=== PATIENT | female | born 1975 | race Caucasian/White ===

== ENCOUNTER 2016-02-27 19:27 | Emergency (ER) | payer OTHER ==
--- NOTE | 2016-02-27 20:58 | ED ---
URI HPI - General Chief Complaint: Upper Respiratory Infection Stated Complaint: Upper Resp Symptoms Time Seen by Provider: 02/27/16 20:07 Source: patient, RN notes reviewed Mode of arrival: ambulatory Limitations: no limitations - History of Present Illness Initial Comments: 40-year-old female presents emergency Department chief complaint cough and congestion 2 days. Patient states that her significant other sick also. Patient denies any fevers or chills. She does state that she's had some bodyaches with a runny nose and a nonproductive cough. Denies any shortness of breath. Denies nausea and diarrhea constipation. Denies sore throat, ear pain. - Related Data Home Medications Medication Instructions Recorded Confirmed Albuterol Inhaler [Ventolin 2 puff INHALATION RT-Q6H PRN 02/13/14 02/27/16 Inhaler] traMADol HCl [Ultram] 50 mg PO Q4H PRN 11/25/14 02/27/16 Gabapentin 800 mg PO TID 01/07/16 02/27/16 Divalproex [Depakote] 250 mg PO BID 02/27/16 02/27/16 Venlafaxine HCl [Effexor] 75 mg PO QAM 02/27/16 02/27/16 lamoTRIgine [LaMICtal] 200 mg PO QAM 02/27/16 02/27/16 Allergies Allergy/AdvReac Type Severity Reaction Status Date / Time No Known Allergies Allergy Verified 01/07/16 22:22 Review of Systems ROS Statement: Those systems with pertinent positive or pertinent negative responses have been documented in the HPI. ROS Other: All systems not noted in ROS Statement are negative. Past Medical History Past Medical History: Asthma, Skin Disorder Additional Past Medical History / Comment(s): Neuropathy, ECZEMA History of Any Multi-Drug Resistant Organisms: None Reported Past Surgical History: Hysterectomy, Tubal Ligation Past Anesthesia/Blood Transfusion Reactions: No Reported Reaction Past Psychological History: Anxiety, Bipolar, Depression Smoking Status: Current every day smoker Past Alcohol Use History: None Reported Past Drug Use History: None Reported General Exam Limitations: no limitations General appearance: alert, in no apparent distress, obese Head exam: Present: atraumatic, normocephalic, normal inspection Eye exam: Present: normal appearance, PERRL, EOMI. Absent: scleral icterus, conjunctival injection, periorbital swelling ENT exam: Present: normal exam, normal oropharynx, mucous membranes moist, TM's normal bilaterally Neck exam: Present: normal inspection, full ROM. Absent: tenderness, meningismus, lymphadenopathy Respiratory exam: Present: normal lung sounds bilaterally. Absent: respiratory distress, wheezes, rales, rhonchi, stridor Cardiovascular Exam: Present: regular rate, normal rhythm, normal heart sounds. Absent: systolic murmur, diastolic murmur, rubs, gallop, clicks Course Vital Signs 02/27/16 19:50 Temperature 98.0 F Pulse Rate 70 Respiratory 18 Rate Blood Pressure 149/89 O2 Sat by Pulse 97 Oximetry Medical Decision Making - Medical Decision Making 40-year-old female presented for cough congestion. Patient has URI. Patient's chest x-ray shows no acute abnormality. Patient will be discharged with conservative treatment. Disposition Clinical Impression: Upper respiratory infection Disposition: HOME SELF-CARE Condition: Stable Instructions: Upper Respiratory Infection (ED) Additional Instructions: Please return to the Emergency Department if symptoms worsen or any other concerns. Time of Disposition: 21:29
--- NOTE | 2016-02-27 21:15 | XR ---
EXAMINATION TYPE: XR chest 2V DATE OF EXAM: 02/27/2016 8:24 PM COMPARISON: 12/16/2015 HISTORY: Cough and congestion TECHNIQUE: Frontal and lateral views of the chest are obtained. FINDINGS: There is no focal air space opacity, pleural effusion, or pneumothorax seen. The cardiac silhouette size is within normal limits. The osseous structures are intact. IMPRESSION: No acute cardiopulmonary process.
[2016-02-27 21:37] VITALS: BP 138/74; PULSE 78; RESP 16; TEMP 97.9
== END 2016-02-27 21:37 | disposition home or self-care (01) ==
LOC: EC 19:27
DX: J06.9 Acute upper respiratory infection, unspecified (principal); F17.200 Nicotine dependence, unspecified, uncomplicated; G62.9 Polyneuropathy, unspecified; F41.9 Anxiety disorder, unspecified; F32.9 Major depressive disorder, single episode, unspecified; Z79.899 Other long term (current) drug therapy
CPT/HCPCS: 71020; 99283

== ENCOUNTER 2016-04-17 21:48 | Inpatient (IN) | payer MEDICAID, OTHER ==
--- NOTE | 2016-04-17 22:00 | ED ---
Overdose HPI - General Chief Complaint: Overdose Stated Complaint: Overdose Time Seen by Provider: 04/17/16 21:48 Source: patient, EMS, RN notes reviewed Mode of arrival: EMS Limitations: no limitations - History of Present Illness Initial Comments: Is a 40-year-old female history depression and prior suicide attempts who took approximately 1510 mg Ambien sometime earlier today. She brought in by EMS for evaluation. She states she took them because she didn't want to wake up for multiple reasons including her daughter doesn't like her. Her boyfriend apparently called 911. She denies any other ingestion. The prescription was fairly new in this is an approximate number again 1510 mg tablets. MD Complaint: intentional overdose - Related Data Home Medications Medication Instructions Recorded Confirmed Albuterol Inhaler [Ventolin 2 puff INHALATION RT-Q6H PRN 02/13/14 02/27/16 Inhaler] traMADol HCl [Ultram] 50 mg PO Q4H PRN 11/25/14 02/27/16 Gabapentin 800 mg PO TID 01/07/16 02/27/16 Divalproex [Depakote] 250 mg PO BID 02/27/16 02/27/16 Venlafaxine HCl [Effexor] 75 mg PO QAM 02/27/16 02/27/16 lamoTRIgine [LaMICtal] 200 mg PO QAM 02/27/16 02/27/16 Allergies Allergy/AdvReac Type Severity Reaction Status Date / Time No Known Allergies Allergy Verified 04/17/16 21:50 Review of Systems ROS Statement: Those systems with pertinent positive or pertinent negative responses have been documented in the HPI. ROS Other: All systems not noted in ROS Statement are negative. Past Medical History Past Medical History: Asthma, Skin Disorder Additional Past Medical History / Comment(s): Neuropathy, ECZEMA History of Any Multi-Drug Resistant Organisms: None Reported Past Surgical History: Hysterectomy, Tubal Ligation Past Anesthesia/Blood Transfusion Reactions: No Reported Reaction Past Psychological History: Anxiety, Bipolar, Depression Smoking Status: Current every day smoker Past Alcohol Use History: None Reported Past Drug Use History: Unable to Obtain General Exam - General Exam Comments Initial Comments: Is a well-developed obese female she is lethargic but does answer questions. Limitations: no limitations General appearance: alert, lethargic Head exam: Present: atraumatic, normocephalic, normal inspection Eye exam: Present: normal appearance, PERRL, EOMI. Absent: scleral icterus, conjunctival injection, periorbital swelling ENT exam: Present: normal exam, mucous membranes moist Neck exam: Present: normal inspection. Absent: tenderness, meningismus, lymphadenopathy Respiratory exam: Present: normal lung sounds bilaterally. Absent: respiratory distress, wheezes, rales, rhonchi, stridor Cardiovascular Exam: Present: regular rate, normal rhythm, normal heart sounds. Absent: systolic murmur, diastolic murmur, rubs, gallop, clicks GI/Abdominal exam: Present: soft, normal bowel sounds, other (Obese abdomen). Absent: distended, tenderness, guarding, rebound, rigid Extremities exam: Present: normal inspection, full ROM, normal capillary refill. Absent: tenderness, pedal edema, joint swelling, calf tenderness Back exam: Present: normal inspection Neurological exam: Present: alert, oriented X3, CN II-XII intact Psychiatric exam: Present: depressed, flat affect, suicidal ideation Skin exam: Present: warm, dry, intact, normal color. Absent: rash Course Vital Signs 04/17/16 04/17/16 04/18/16 21:50 23:35 00:35 Temperature 98.2 F Pulse Rate 99 86 75 Respiratory 16 20 20 Rate Blood Pressure 166/79 142/80 156/88 O2 Sat by Pulse 95 96 97 Oximetry Medical Decision Making - Medical Decision Making The patient rested for a period time and then was evaluated by the psychiatric service she will be admitted for inpatient treatment - Lab Data Lab Results 04/17/16 04/17/16 04/17/16 Range/Units 22:00 22:00 22:00 Urine Color Yellow Urine Appearance Cloudy H (Clear) Urine pH 5.5 (5.0-8.0) Ur Specific [place] 1.027 (1.001-1.035) Urine Protein 1+ H (Negative) Urine Glucose (UA) Negative (Negative) Urine Ketones Negative (Negative) Urine Blood Small H (Negative) Urine Nitrate Negative (Negative) Urine Bilirubin Negative (Negative) Urine Urobilinogen 4.0 (<2.0) mg/dL Ur Leukocyte Esterase Negative (Negative) Urine RBC 17 H (0-5) /hpf Ur Squamous Epith Cells 5 H (0-4) /hpf Urine Bacteria Rare H (None) /hpf Urine Mucus Many H (None) /hpf Urine HCG, Qual Not Detected (Not Detectd) Salicylates <1.0 mg/dL Urine Opiates Screen Detected H (NotDetected) Ur Oxycodone Screen Not Detected (NotDetected) Urine Methadone Screen Not Detected (NotDetected) Ur Propoxyphene Screen Not Detected (NotDetected) Acetaminophen <10.0 ug/mL Ur Barbiturates Screen Not Detected (NotDetected) U Tricyclic Antidepress Not Detected (NotDetected) Ur Phencyclidine Scrn Not Detected (NotDetected) Ur Amphetamines Screen Detected H (NotDetected) U Methamphetamines Scrn Not Detected (NotDetected) U Benzodiazepines Scrn Not Detected (NotDetected) Urine Cocaine Screen Detected H (NotDetected) U Marijuana (THC) Screen Not Detected (NotDetected) Serum Alcohol <10 mg/dL Disposition Clinical Impression: Overdose, Depression, Suicidal ideation Disposition: TRANSFER TO PSYCH HOSP/UNIT Condition: Stable
[2016-04-17 22:23] LABS: Appearance,Urine Cloudy (Clear); Bacteria,Urine Rare /hpf; Bilirubin,Urine Negative (Negative); Glucose,Urine (UA) Negative (Negative); Ketones,Urine Negative (Negative); Leukocyte Esterase,Urine Negative (Negative); Mucus,Urine Many /hpf; Nitrite,Urine Negative (Negative); PH, Urine 5.5 (5.0-8.0); Particle Count 37490; Protein,Urine 1+ (Negative); RBC,Urine 17 /hpf (0-5); Specific Gravity,Urine 1.027 (1.001-1.035); Squamous Epithelial Cell,Urine 5 /hpf (0-4); UA Billing (MACRO vs. MICRO) MICRO
[2016-04-17 22:27] LABS: Acetaminophen <10.0 ug/mL; Alcohol <10 mg/dL; Salicylate <1.0 mg/dL
[2016-04-18] MEDS ORDERED: MAGNESIUM HYDROXIDE 2,400 MG/10 ML CUP PO PRN (02:22)
[2016-04-18] MEDS ORDERED: ACETAMINOPHEN TAB 325 MG TAB PO PRN (02:22)
[2016-04-18] MEDS ORDERED: MAG HYDROX/AL HYDROX/SIMETH 30 ML CUP PO PRN (02:22)
[2016-04-18] MEDS ORDERED: ALBUTEROL INHALER 60 PUFF/8 GM INHALER INHALATION PRN (02:23)
[2016-04-18 03:24] VITALS: BMI 58.6
[2016-04-18] MEDS: NICOTINE 7MG/24HR PATCH TRANSDERM SCH (08:48)
[2016-04-18] MEDS: GABAPENTIN 400 MG CAP PO SCH ×3 (08:48→22:45)
[2016-04-18] MEDS: traMADol 50 MG TAB PO PRN ×3 (08:49→22:45)
[2016-04-18] MEDS ORDERED: LORazepam 1 MG TAB PO PRN (11:27)
[2016-04-18] MEDS: HYDROcodone/APAP 5-325MG 1 EACH TAB PO PRN ×2 (12:21→20:10)
--- NOTE | 2016-04-18 16:47 | P.HP ---
Psychiatric H&P - . H&P Date: 04/18/16 History & Physical: IDENTIFYING DATA: Mrs. Paniagua is a 40-year-old female who has a purported history of a bipolar disorder.. HISTORY OF PRESENT ILLNESS: Her boyfriend called emergency services because he thought that she overdosed on Ambien. He estimated that she may have taken 15- 20 10 mg tablets of Ambien last night. She alleged she has no recollection of the events after taking 20 mg of Ambien last night. She complained that she was having difficulty sleeping and took 2 tablets. She said her boyfriend told her that she continued to take Ambien "while I was sleeping." She has no memory or recollection of taking additional doses of Ambien. She has no recollection of emergency services arriving at their home or her arrival to the emergency room. She alleged that she next remembered waking up on the unit. She was having difficulty sleeping because she and her boyfriend were arguing over her recent relapse to crack cocaine. She stated that she has been abstinent for 11 years and relapsed over the last week. She smoked crack cocaine 3 times over the week. She acknowledged that her cocaine use may have contributed to the recent worsening of her sleep. She denied the use of other drugs to get high, help her sleep or change her mood. She denied use of alcohol. He urine drug screen was positive for opiates, amphetamines and cocaine. She stated that she is prescribed Lott for the treatment of chronic pain but denied use of amphetamines. She denied having been depressed or having had thoughts of or suicide. She denied that she had taken additional dose of Ambien in a suicide attempt. She denied conflict with boyfriend other than the recent arguments over her relapse to cocaine. She denied anxiety or symptoms suggestive of panic attack. She denied elevated mood or persistent irritability suggestive of yves or hypomania. She denied psychotic symptoms. PAST PSYCHIATRIC HISTORY: This is her third admission to this psychiatric unit. The last was in February 2007. The 2 prior hospitalizations were related to depression and suicide attempt by overdose of medications. She has been meeting with a private psychiatrist, Pollo Dougherty, for the last "6 months to 1 year" for the treatment of her bipolar illness. Her current psychotropic medications include Depakote 500 mg twice a day, Xanax 0.5 mg by mouth twice a day and Ambien 10 mg at bedtime. PAST MEDICAL HISTORY: She history of chronic back pain, a peripheral neuropathy , COPD. She stated that she is prescribed Lott 5-325 2-3 times a day as well as Neurontin 800 mg 3 times a day for pain. ALLERGIES: NO KNOWN DRUG ALLERGIES. SUBSTANCE USE HISTORY: She has a history of use of drugs including cocaine, methamphetamine, mescaline, hallucinogenic mushrooms, LSD, marijuana and alcohol. Her drug of choice is cocaine. She started using cocaine when she was 27 or 28 years old. As a result of cocaine use she incurred serious legal problems with multiple felony charges in 2005. She received residential substance abuse treatment ([facility]) while on probation and has been abstinent from cocaine until the recent relapse. FAMILY PSYCHIATRIC/SUBSTANCE USE HISTORY: She alleged that the most of her family have alcohol or mental health problems. Both her brothers have alcohol use problems. LEGAL HISTORY: She is not currently on probation, parole or has pending charges. She stated that she was arrested when her "home was raided" and charged with maintaining a drug house, possession of controlled substance and possession of stolen property in 2005. She was convicted of two the charges and sentenced to 2 years probation. On the [facility] court docket she has multiple misdemeanors including to domestic violence charges, assault charges and assault and addition to multiple moving vehicle violations. SOCIAL HISTORY: She was born in [place] [facility] and raised in [place]. She has one older and one younger brother. Her parents when she was 8 years old. She was raised by her mother. She graduated from high school and received a bachelor's degree from [employer] in business administration. She stated that she was unable to find work in her field of study because of her felony convictions. She has 1 daughter who is under the custody of her mother. She was . She lives with her boyfriend. She has no income and is supported by her boyfriend. MENTAL STATUS EXAM: She presented as anxious appearing, morbidly obese 40-year- old female who was pleasant on approach. She wore a blanket wrapped around her shoulders because she only had a top and under shorts. She maintained eye contact and attended to the interview. She had a blunted but bright facial expression. She was alert and oriented to person, place and time. She showed no abnormality of psychomotor activity. She had a normal gait and station. She had no abnormal involuntary movements. Her speech was spontaneous with slightly increased rhythm but normal volume and amount. She had no articulation difficulties. Her affect was anxious but stable and appropriate. She denied suicidal ideation or wishes. She denied homicidal ideation. She denied depressive cognitions as hopelessness, helplessness or worthlessness. She did not express obsessional thinking. She ruminated on the hospitalization and the circumstances leading to the admission. She did not express ideas reference or paranoid ideation. Her thinking was abstract. Her associations were coherent and logical. She denied hallucinations and did not appear to be responding to internal stimuli. Global impression of intellect is average. She is aware of her substance abuse and mental health problems and need for treatment. STRENGTHS: Engagement mental health care, stable interpersonal relationships, supportive significant other, stable housing, financial problems. WEAKNESSES: Relapse to cocaine, lack of employment, multiple medical problems. IMPRESSION: She is 41-year-old woman who has a purported diagnosis of bipolar disorder. She presented to the unit after an apparent unintentional overdose of Ambien. She has no recollection of events leading to hospitalization other than taking a 20 mg dose of Ambien last night. She has had recent conflict with her boyfriend due to relapse to cocaine but alleged she has been otherwise abstinent for the last 11 years. She complained of increased insomnia after the relapse from cocaine. She appears to have developed an amnestic episode Ambien. She is treated outpatient basis combination of psychotropic medications and multimodal therapy. Social work to arrange for a family meeting. PRINCIPLE DIAGNOSIS: Zolpidem abuse, zolpidem induced amnesia, cocaine abuse, her personal conflict due to cocaine abuse, history of bipolar disorder RECOMMENDATION: Continue inpatient hospitalization until family meeting to clarify the circumstances leading to the admission and safety of patient returning home. Continue Depakote ER 1000 mg at bedtime, [place] 5-325 4 times a day when necessary for pain, Neurontin 800 mg 3 times a day, tramadol 50 mg by mouth 4 times a day when necessary for muscle spasms and pain and lorazepam 1 mg by mouth every 8 hours when necessary for anxiety. Encourage participation in therapeutic groups and activities. Evaluate clinical status and response to treatment on a daily basis. Allergies Allergy/AdvReac Type Severity Reaction Status Date / Time No Known Allergies Allergy Verified 04/18/16 03:25 Vital Signs Temp 97.2 F L 04/18/16 03:13 Pulse 82 04/18/16 03:13 Resp 20 04/18/16 03:13 BP 126/88 04/18/16 03:13 Pulse Ox 94 L 04/18/16 03:13 Intake & Output 04/17/16 04/18/16 04/18/16 18:59 06:59 18:59 Weight 140.699 kg Laboratory Last Values Urine Color Yellow 04/17/16 22:00 Urine Appearance Cloudy (Clear) H 04/17/16 22:00 Urine pH 5.5 (5.0-8.0) 04/17/16 22:00 Ur Specific [place] 1.027 (1.001-1.035) 04/17/16 22:00 Urine Protein 1+ (Negative) H 04/17/16 22:00 Urine Glucose (UA) Negative (Negative) 04/17/16 22:00 Urine Ketones Negative (Negative) 04/17/16 22:00 Urine Blood Small (Negative) H 04/17/16 22:00 Urine Nitrate Negative (Negative) 04/17/16 22:00 Urine Bilirubin Negative (Negative) 04/17/16 22:00 Urine Urobilinogen 4.0 mg/dL (<2.0) 04/17/16 22:00 Ur Leukocyte Esterase Negative (Negative) 04/17/16 22:00 Urine RBC 17 /hpf (0-5) H 04/17/16 22:00 Ur Squamous Epith Cells 5 /hpf (0-4) H 04/17/16 22:00 Urine Bacteria Rare /hpf (None) H 04/17/16 22:00 Urine Mucus Many /hpf (None) H 04/17/16 22:00 Urine HCG, Qual Not Detected (Not Detectd) 04/17/16 22:00 Salicylates <1.0 mg/dL 04/17/16 22:00 Urine Opiates Screen Detected (NotDetected) H 04/17/16 22:00 Ur Oxycodone Screen Not Detected (NotDetected) 04/17/16 22:00 Urine Methadone Screen Not Detected (NotDetected) 04/17/16 22:00 Ur Propoxyphene Screen Not Detected (NotDetected) 04/17/16 22:00 Acetaminophen <10.0 ug/mL 04/17/16 22:00 Ur Barbiturates Screen Not Detected (NotDetected) 04/17/16 22:00 U Tricyclic Antidepress Not Detected (NotDetected) 04/17/16 22:00 Ur Phencyclidine Scrn Not Detected (NotDetected) 04/17/16 22:00 Ur Amphetamines Screen Detected (NotDetected) H 04/17/16 22:00 U Methamphetamines Scrn Not Detected (NotDetected) 04/17/16 22:00 U Benzodiazepines Scrn Not Detected (NotDetected) 04/17/16 22:00 Urine Cocaine Screen Detected (NotDetected) H 04/17/16 22:00 U Marijuana (THC) Screen Not Detected (NotDetected) 04/17/16 22:00 Serum Alcohol <10 mg/dL 04/17/16 22:00 04/18/16 08:39 04/18/16 11:33 04/18/16 16:42
[2016-04-18] MEDS ORDERED: DIVALPROEX ER 500 MG TAB.ER.24H PO SCH (21:00)
[2016-04-19 07:01] VITALS: TEMP 97.7
[2016-04-19] MEDS: GABAPENTIN 400 MG CAP PO SCH (08:58)
[2016-04-19] MEDS: NICOTINE 7MG/24HR PATCH TRANSDERM SCH (08:58)
[2016-04-19] MEDS: HYDROcodone/APAP 5-325MG 1 EACH TAB PO PRN (09:01)
[2016-04-19 09:03] VITALS: BP 139/76; PULSE 76; RESP 18
[2016-04-19 09:31] LABS: Basophils # (A) 0.1 k/uL (0-0.2); Basophils % (A) 1 %; CH 32.1; CHCM 31.5; Eosinophils # (A) 0.2 k/uL (0-0.7); Eosinophils % (A) 2 %; HCT 52.1 % (34.0-46.0); HDW 2.67; HGB 16.1 gm/dL (11.4-16.0); Luc # (Auto) 0.24; Luc % (Auto) 3; Lymphocytes # (A) 2.9 k/uL (1.0-4.8); Lymphocytes % (A) 34 %; MCH 31.7 pg (25.0-35.0); MCHC 30.9 g/dL (31.0-37.0); MCV 102.5 fL (80.0-100.0); Macrocytosis Slight; Mean Platelet Volume 6.7; Monocytes # (A) 0.3 k/uL (0-1.0); Monocytes % (A) 4 %; Neutrophils # (A) 4.8 k/uL (1.3-7.7); Neutrophils % (A) 56 %; RBC 5.09 m/uL (3.80-5.40); RDW 13.8 % (11.5-15.5); WBC 8.5 k/uL (3.8-10.6)
[2016-04-19 09:43] LABS: ALT 28 U/L (9-52); AST 16 U/L (14-36); Alkaline Phosphatase 63 U/L (38-126); Anion Gap 12 mmol/L; Blood Urea Nitrogen 13 mg/dL (7-17); Calcium 9.5 mg/dL (8.4-10.2); Carbon Dioxide 23 mmol/L (22-30); Chloride 106 mmol/L (98-107); Glucose 151 mg/dL (74-99); Non-African American GFR(MDRD) >60 (>60 ml/min/1.73 sqM); Potassium 4.3 mmol/L (3.5-5.1); Sodium 141 mmol/L (137-145); Total Bilirubin 0.5 mg/dL (0.2-1.3); Total Protein 6.9 g/dL (6.3-8.2)
--- NOTE | 2016-04-19 11:17 | P.DS ---
Providers Date of admission: 04/18/16 01:57 Attending physician: Javy Nance Consults: 04/18/16 02:22 Consult Physician Routine Consulting Provider: Stephen Crabrtee Consult Reason/Comments: For H & P for Medical Follow Up Do you want consulting provider notified?: Yes, Notify in am Primary care physician: Stephen Crabtree - Discharge Diagnosis(es) (1) Accidental zolpidem overdose Status: Resolved Priority: High (2) Mild zolpidem abuse Status: Chronic Priority: High (3) Amnestic syndrome, drug-induced Status: Resolved Priority: High (4) Cocaine use disorder, severe, dependence Status: Chronic Priority: High (5) Relationship problem between partners Status: Resolved Priority: Medium Hospital Course: Mrs. Paniagua is a 40-year-old female who has a purported history of a bipolar disorder. Her boyfriend called emergency services because he thought that she overdosed on Ambien. He estimated that she may have taken 15-20 10 mg tablets of Ambien last night. She alleged she has no recollection of the events after taking 20 mg of Ambien last night. She complained that she was having difficulty sleeping and took 2 tablets. She said her boyfriend told her that she continued to take Ambien "while I was sleeping." She has no memory or recollection of taking additional doses of Ambien. She has no recollection of emergency services arriving at their home or her arrival to the emergency room. She alleged that she next remembered waking up on the unit. She was having difficulty sleeping because she and her boyfriend were arguing over her recent relapse to crack cocaine. She stated that she has been abstinent for 11 years and relapsed over the last week. She smoked crack cocaine 3 times over the week. She acknowledged that her cocaine use may have contributed to the recent worsening of her sleep. She denied the use of other drugs to get high, help her sleep or change her mood. She denied use of alcohol. He urine drug screen was positive for opiates, amphetamines and cocaine. She stated that she is prescribed [place] for the treatment of chronic pain but denied use of amphetamines. She denied having been depressed or having had thoughts of or suicide. She denied that she had taken additional dose of Ambien in a suicide attempt. She denied conflict with boyfriend other than the recent arguments over her relapse to cocaine. She denied anxiety or symptoms suggestive of panic attack. She denied elevated mood or persistent irritability suggestive of yves or hypomania. She denied psychotic symptoms. This is her third admission to this psychiatric unit. The last was in February 2007. The 2 prior hospitalizations were related to depression and suicide attempt by overdose of medications. She has been meeting with a private psychiatrist, Pollo Dougherty, for the last "6 months to 1 year" for the treatment of her bipolar illness. Her current psychotropic medications include Depakote 500 mg twice a day, Xanax 0.5 mg by mouth twice a day and Ambien 10 mg at bedtime. She has a history of use of drugs including cocaine, methamphetamine, mescaline , hallucinogenic mushrooms, LSD, marijuana and alcohol. Her drug of choice is cocaine. She started using cocaine when she was 27 or 28 years old. As a result of cocaine use she incurred serious legal problems with multiple felony charges in 2005. She received residential substance abuse treatment ( [facility]) while on probation and has been abstinent from cocaine until the recent relapse. We admitted her to psychiatric unit under the care of this technical writer and editor. She received a biopsychosocial assessment. We placed her on suicide precautions with 15 minute checks. She alleged that she had no recollection of abusing Ambien. She recognizes that her increasing problems with sleep was related to her use of cocaine. She denied feeling depressed or having thoughts of or suicide. She denied that she had abuse Ambien in a suicide attempt. She mostly avoided participation in therapeutic groups and activities. She repeatedly requested to be discharged and to return home. She expressed an interest in substance abuse treatment and group social worker provided information on outpatient substance abuse treatment programs. During the family meeting her boyfriend expressed no concern about her safety and supports her reentering substance abuse treatment. At time of discharge denied thoughts of or suicide. Patient Condition at Discharge: Stable Plan - Discharge Summary New Discharge Prescriptions: Nicotine 7Mg/24Hr Patch [Habitrol] 1 patch TRANSDERM DAILY #14 patch Discharge Medication List Albuterol Inhaler [Ventolin Hfa Inhaler] 2 puff INHALATION RT-Q6H PRN 02/13/14 [ History] traMADol HCl [Ultram] 50 mg PO Q6H PRN 11/25/14 [History] Gabapentin 800 mg PO TID 01/07/16 [History] ALPRAZolam [Xanax] 0.5 mg PO BID 04/18/16 [History] Baclofen [Lioresal] 10 mg PO BID PRN 04/18/16 [History] Divalproex ER [Depakote ER] 500 mg PO BID 04/18/16 [History] HYDROcodone/APAP 10-325MG [[place] 10-325] 1 tab PO TID PRN 04/18/16 [History] Ipratropium-Albuterol Nebulize [Duoneb 0.5 mg-3 mg/3 ml Soln] 3 ml INHALATION RT -QID PRN 04/18/16 [History] Nicotine 7Mg/24Hr Patch [Habitrol] 1 patch TRANSDERM DAILY #14 patch 04/19/16 [ Rx] Follow up Appointment(s)/Referral(s): Stephen Crabtree MD [Primary Care Provider] - 1 Week Patient Instructions/Handouts: Depression (DC), Suicide Prevention for Adults ( DC) Activity/Diet/Wound Care/Special Instructions: ticket worker gave the patient a list of outpatient referrals and substance abuse options to follow up on. Discharge Disposition: HOME SELF-CARE
== END 2016-04-19 10:22 | disposition home or self-care (01) | DRG 918 ==
LOC: EC 21:48 → 3MHU 04-18 01:57
PROVIDERS: ADMIT Psychiatry & Neurology Psychiatry; ATTEND Psychiatry & Neurology Psychiatry
DX: T42.6X1A Poisoning by other antiepileptic and sedative-hypnotic drugs, accidental (unintentional), initial encounter (principal); F14.20 Cocaine dependence, uncomplicated; F13.10 Sedative, hypnotic or anxiolytic abuse, uncomplicated; Y92.9 Unspecified place or not applicable; F17.200 Nicotine dependence, unspecified, uncomplicated; G47.00 Insomnia, unspecified; J44.9 Chronic obstructive pulmonary disease, unspecified; J45.909 Unspecified asthma, uncomplicated; F41.9 Anxiety disorder, unspecified; G62.9 Polyneuropathy, unspecified; G89.29 Other chronic pain; M54.9 Dorsalgia, unspecified; F32.9 Major depressive disorder, single episode, unspecified; L30.9 Dermatitis, unspecified; R41.3 Other amnesia; Z91.5 Personal history of self-harm; Z79.899 Other long term (current) drug therapy
CPT/HCPCS: 36415; 51701; 80053; 80306; 80320; 81001; 81025; 83520; 84443; 85025; 99285

== ENCOUNTER 2016-05-09 13:17 | Inpatient (IN) | payer OTHER ==
[2016-05-09] MEDS ORDERED: SODIUM CHLORIDE 0.9% 500 ML IV STA (13:26)
[2016-05-09] MEDS ORDERED: SODIUM CHLORIDE 0.9% 1,000 ML IV STA (13:27)
[2016-05-09 13:59] LABS: Basophils # (A) 0.1 k/uL (0-0.2); Basophils % (A) 1 %; CH 32.5; CHCM 33.6; Eosinophils # (A) 0.1 k/uL (0-0.7); Eosinophils % (A) 1 %; HCT 48.1 % (34.0-46.0); HDW 2.76; HGB 16.4 gm/dL (11.4-16.0); Luc # (Auto) 0.25; Luc % (Auto) 3; Lymphocytes # (A) 1.6 k/uL (1.0-4.8); Lymphocytes % (A) 17 %; Mean Platelet Volume 7.7; Monocytes # (A) 0.6 k/uL (0-1.0); Monocytes % (A) 6 %; Neutrophils # (A) 7.1 k/uL (1.3-7.7); Neutrophils % (A) 73 %; RBC 4.96 m/uL (3.80-5.40); RDW 13.5 % (11.5-15.5); WBC 9.7 k/uL (3.8-10.6); WBC (Perox) 9.91
[2016-05-09 14:01] LABS: MCV 97.1 fL (80.0-100.0)
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
[2016-05-09 14:10] LABS: ALT 38 U/L (9-52); AST 23 U/L (14-36); Acetaminophen <10.0 ug/mL; Alkaline Phosphatase 59 U/L (38-126); Anion Gap 12 mmol/L; Blood Urea Nitrogen 11 mg/dL (7-17); Calcium 9.4 mg/dL (8.4-10.2); Carbon Dioxide 24 mmol/L (22-30); Chloride 107 mmol/L (98-107); Glucose 98 mg/dL (74-99); Non-African American GFR(MDRD) >60 (>60 ml/min/1.73 sqM); Potassium 3.8 mmol/L (3.5-5.1); Salicylate <1.0 mg/dL; Sodium 143 mmol/L (137-145); Total Bilirubin 0.7 mg/dL (0.2-1.3); Total Protein 6.4 g/dL (6.3-8.2)
[2016-05-09] MEDS ORDERED: SUCCINYLCHOLINE CHLORIDE VIAL 200 MG/10 ML VIAL IV STA (16:12)
[2016-05-09] MEDS ORDERED: PROPOFOL 500 MG in EMPTY BAG 1 BAG IV ONE (16:27)
[2016-05-09] MEDS ORDERED: NALOXONE 0.4 MG/ML 1 ML VIAL IV PRN (16:30)
[2016-05-09] MEDS ORDERED: ACETAMINOPHEN SUPPOSITORY 650 MG SUPP RECTAL PRN (16:30)
--- NOTE | 2016-05-09 16:37 | XR ---
EXAMINATION TYPE: XR chest 1V portable DATE OF EXAM: 05/09/2016 4:32 PM COMPARISON: 02/27/2016 HISTORY: Tube placement TECHNIQUE: Single frontal view of the chest is obtained. FINDINGS: Endotracheal tube is somewhat low and 1.5 cm from the juan a. There is pulmonary vascular congestion. There is no sign of a pneumothorax. There are chest leads. There is no sign of pleural ef fusion. IMPRESSION: Endotracheal tube is low and could be pulled back 2 cm. There is new pulmonary congestio n compared to last exam. This could be heart failure or other cause of mild pulmonary edema.
[2016-05-09] MEDS ORDERED: AMPICILLIN-SULBACTAM 3 GM in SODIUM CHLORIDE 0.9% 100 ML IVPB STA (16:56)
[2016-05-09] MEDS ORDERED: LORazepam 2 MG/ML SYRINGE IV SCH (17:00)
[2016-05-09 17:35] LABS: Magnesium 2.1 mg/dL (1.6-2.3)
[2016-05-09] MEDS: hydrALAZINE HCL 20 MG/ML 1 ML VIAL IVP PRN ×2 (17:39→20:59)
[2016-05-09 17:47] LABS: ABG PH 7.29 (7.35-7.45)
[2016-05-09 17:48] LABS: ABG Base Excess -1.6 mmol/L; ABG HCO3 24 mmol/L (21-25); ABG Oxygen Saturation 99.9 % (94-97); ABG PCO2 52 mmHg (35-45); ABG PO2 348 mmHg (83-108); ABG TCO2 26 mmol/L (19-24)
[2016-05-09] MEDS: PANTOPRAZOLE 40 MG/10 ML VIAL IV SCH (17:49)
[2016-05-09] MEDS: ENOXAPARIN 40 MG/0.4 ML SYRINGE SQ SCH (17:49)
[2016-05-09 18:36] LABS: Glucose,Whole Blood 104 mg/dL (75-99)
[2016-05-09] MEDS: IPRATROPIUM-ALBUTEROL 3 ML NEB INHALATION PRN ×2 (19:34→23:06)
[2016-05-09] MEDS ORDERED: Magnesium Replacement Protocol 1 EACH MISC MISCELLANE PRN (19:42)
[2016-05-09] MEDS ORDERED: Potassium Replacement Protocol 1 EACH MISC MISCELLANE PRN (19:46)
[2016-05-09 19:59] LABS: Appearance,Urine Clear (Clear); Bilirubin,Urine Negative (Negative); Glucose,Urine (UA) Negative (Negative); Ketones,Urine 1+ (Negative); Leukocyte Esterase,Urine Negative (Negative); Nitrite,Urine Negative (Negative); Protein,Urine Negative (Negative); Specific Gravity,Urine 1.001 (1.001-1.035); UA Billing (MACRO vs. MICRO) CHEM; Urobilinogen,Urine <2.0 mg/dL (<2.0)
[2016-05-09] MEDS ORDERED: POTASSIUM CHLORIDE ORAL LIQUID 40 MEQ/30 ML CUP NG-TUBE SCH (20:00)
[2016-05-09 20:10] VITALS: BMI 59.1
[2016-05-09] MEDS: ENALAPRILAT 1.25 MG/ML 1 ML VIAL IVP PRN (20:11)
[2016-05-09] MEDS: MAGNESIUM SULFATE-D5W PMX 1 GM in DEXTROSE/WATER 1 100ML.BAG IVPB SCH ×2 (20:15→21:02)
[2016-05-09] MEDS: CHLORHEXIDINE GLUCONATE 15 ML CUP MUCOUS MEM SCH (20:16)
[2016-05-09] MEDS ORDERED: hydrALAZINE HCL 20 MG/ML 1 ML VIAL IVP STA (20:40)
[2016-05-09] MEDS: AMPICILLIN-SULBACTAM 3 GM in SODIUM CHLORIDE 0.9% 100 ML IVPB SCH (21:02)
[2016-05-09] MEDS ORDERED: FUROSEMIDE 10 MG/ML 4 ML VIAL IV STA (21:46)
[2016-05-09] MEDS: PROPOFOL 500 MG in EMPTY BAG 1 BAG IV SCH (22:06)
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
[2016-05-10 01:04] LABS: Glucose,Whole Blood 152 mg/dL (75-99)
[2016-05-10] MEDS: SODIUM CHLORIDE 0.9% 1,000 ML IV SCH ×2 (01:04→18:51)
[2016-05-10] MEDS: IPRATROPIUM-ALBUTEROL 3 ML NEB INHALATION PRN ×3 (03:09→15:10)
[2016-05-10] MEDS: PROPOFOL 500 MG in EMPTY BAG 1 BAG IV SCH ×7 (04:34→20:50)
[2016-05-10 04:57] LABS: Basophils # (A) 0.2 k/uL (0-0.2); Basophils % (A) 1 %; CH 32.2; CHCM 32.4; Eosinophils # (A) 0.1 k/uL (0-0.7); Eosinophils % (A) 0 %; HCT 55.7 % (34.0-46.0); HDW 2.78; Luc # (Auto) 0.31; Luc % (Auto) 2; Lymphocytes # (A) 1.9 k/uL (1.0-4.8); Lymphocytes % (A) 11 %; MCH 32.4 pg (25.0-35.0); MCHC 32.3 g/dL (31.0-37.0); MCV 100.1 fL (80.0-100.0); Mean Platelet Volume 7.9; Monocytes # (A) 0.8 k/uL (0-1.0); Monocytes % (A) 5 %; Neutrophils # (A) 13.4 k/uL (1.3-7.7); Neutrophils % (A) 81 %; RBC 5.57 m/uL (3.80-5.40); RDW 13.8 % (11.5-15.5); WBC 16.7 k/uL (3.8-10.6); WBC (Perox) 17.13
[2016-05-10 05:14] LABS: ALT 42 U/L (9-52); AST 29 U/L (14-36); Alkaline Phosphatase 69 U/L (38-126); Anion Gap 13 mmol/L; Blood Urea Nitrogen 7 mg/dL (7-17); Calcium 9.1 mg/dL (8.4-10.2); Carbon Dioxide 23 mmol/L (22-30); Chloride 109 mmol/L (98-107); Glucose 124 mg/dL (74-99); Magnesium 2.4 mg/dL (1.6-2.3); Non-African American GFR(MDRD) >60 (>60 ml/min/1.73 sqM); Phosphorous 3.9 mg/dL (2.5-4.5); Potassium 4.1 mmol/L (3.5-5.1); Sodium 145 mmol/L (137-145); Total Bilirubin 0.8 mg/dL (0.2-1.3); Total Protein 6.8 g/dL (6.3-8.2)
[2016-05-10] MEDS: AMPICILLIN-SULBACTAM 3 GM in SODIUM CHLORIDE 0.9% 100 ML IVPB SCH ×3 (07:37→18:50)
--- NOTE | 2016-05-10 08:06 | XR ---
EXAMINATION TYPE: XR chest 1V DATE OF EXAM: 05/10/2016 6:30 AM COMPARISON: Yesterday HISTORY: Pneumonia TECHNIQUE: Single frontal view of the chest is obtained. FINDINGS: Endotracheal tube appears in good position. There is mild pulmonary vascular congestion. H eart and mediastinum are normal. There is a nasogastric tube that appears in good position. There are chest leads. There is no definite pleural effusion. IMPRESSION: There is improvement in the pulmonary vascular congestion compared to yesterday. There i s probably minimal residual heart failure.
[2016-05-10] MEDS: CHLORHEXIDINE GLUCONATE 15 ML CUP MUCOUS MEM SCH ×2 (08:31→20:44)
[2016-05-10] MEDS: ENOXAPARIN 40 MG/0.4 ML SYRINGE SQ SCH (08:31)
[2016-05-10] MEDS: PANTOPRAZOLE 40 MG/10 ML VIAL IV SCH (08:32)
[2016-05-10 08:39] LABS: ABG HCO3 27 mmol/L (21-25); ABG PCO2 46 mmHg (35-45); ABG PH 7.38 (7.35-7.45); ABG PO2 147 mmHg (83-108); ABG TCO2 28 mmol/L (19-24)
[2016-05-10 08:40] LABS: ABG Oxygen Saturation 99.2 % (94-97)
--- NOTE | 2016-05-10 08:59 | HP ---
DATE OF ADMISSION: 05/09/2016 Attending physician: Dr. Gokul Dominguez. Admitting physician: Dr. Ramon. CHIEF COMPLAINT: Drug overdose. HISTORY OF PRESENT ILLNESS: This 40-year-old was brought in to the emergency room by EMS after having reported that she had swallowed about somewhere approximately 40 pills. EMS could not figure out what it was and the patient could not tell exactly what it was. After discussion with the mother, she feels that patient might have taken Baclofen. The patient in the emergency room has progressively worsened, somnolence worsening and increased somnolence. The patient's blood gases did reveal some respiratory depression. She was intubated. The patient at this time of my evaluation is totally intubated without any response. The patient had been on Propofol which has been discontinued yet the patient is not responsive. Her vital signs are stable. Her respiratory status is stable. Past medical history etc. is obtained from the mother. Past medical history is significant for history of mild bronchial asthma with intermittent episodes. History of degenerative arthritis affecting the knee joints. She has had previous bilateral knee arthroplasties. She also has known history of idiopathic peripheral neuropathy. The patient has a history of depression and this is the third attempt of suicide. The last one was about a month or so ago. She does follow with a psychiatrist. PAST SURGICAL HISTORY: Significant for hysterectomy. She is 1, para one with one daughter. FAMILY MEDICAL HISTORY: The patient has one daughter 16 years of age, in good health. SOCIAL HISTORY: Patient is single. She has a very supportive mother. PERSONAL HISTORY: The patient is a smoker. Alcohol none. History of drugs and substance dependence especially cocaine. Medications at home: 1. Ultram 50 q.6 p.r.n. 2. Ambien 10 mg at bedtime. 3. Nicotine patches. 4. DuoNebs q.i.d. p.r.n. 5. Hydrocodone 10/325 t.i.d. p.r.n. 6. Gabapentin 800 t.i.d. 7. Divalproex 500 b.i.d. 8. Baclofen 10 b.i.d. 9. Albuterol inhaler p.r.n. 10. Xanax 0.5 b.i.d. Review of systems not obtainable from the patient, per her mother, no reported recent history of any respiratory infections, cough, congestion, nausea, vomiting, diarrheas. No reported history of any bleeding inside. She does have some chronic knee pain and has history of neuropathy with chronic pain. PHYSICAL EXAMINATION: This is a 40-year-old who appears her stated age, obese, on a ventilator at present in no distress. Vital signs: The patient is afebrile, pulse 94, respirations 18, blood pressure 185/91, oxygen saturation 100 with an FiO2 of 50% on the ventilator. HEENT: Normocephalic. NECK: No JVD. Chest is clear to auscultation with good air flow bilaterally. Apparently the ET tube was pulled back by Respiratory therapy. CARDIAC: Normal S1, S2 with no gallops, murmurs or rubs. ABDOMEN: Obese, soft. Bowel sounds active. Extremities revealed mild chronic edema. No tenderness. NEUROLOGIC: Unresponsive. Pupils are pinpoint. Laboratory assessment: CBC which reveals hemoglobin 16.4. Otherwise white count, platelet counts normal. Blood gases revealed pH is 7.29, pCO2 of 52, pO2 348. Electrolytes normal. Renal function normal, hepatic function normal. Patient's urinalysis cocaine detected. ASSESSMENT: 1. Drug overdose. 2. Suicidal gesture. 3. Depression. 4. History of peripheral neuropathy. 5. History of bronchial asthma. 6. History of degenerative arthritis in the knees. PLAN: Patient at present is on a ventilator and support system. Continue with IV fluids and respiratory support. Prognosis remains guarded. The patient's condition discussed with the patient's mother.
[2016-05-10] MEDS ORDERED: NICOTINE 7MG/24HR PATCH TRANSDERM SCH (09:00)
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
[2016-05-10 12:02] LABS: Glucose,Whole Blood 124 mg/dL (75-99)
--- NOTE | 2016-05-10 12:59 | P.PN ---
Subjective Principal diagnosis: Drug overdose Drug overdose history present illness: This 40-year-old female was admitted to the hospital with a drug overdose. Patient to a bottle of pills. Not exactly known which. Patient had quite a few bottles and the house which were empty. She is on narcotics muscle relaxers gabapentin Ambien. The patient states mother suspects patient took baclofen. The patient had both respiratory depression and mental obtundation. She was intubated in the emergency room. Her vitals have remained stable initially she was hypotensive. She has no underlying ailments of diabetes hypertension. Chest x-ray was read as CHF clinically no suggestion. The patient was given a dose of Lasix by the relations manager. Has had good urine output. Her respirations have remained stable her oxygenation has remained stable. She has been afebrile. The ER physicians and thought she might have aspirated and the patient has been on antibiotic. Patient has had no fever. She does respond to deep stimulus today. Her pupils are not pinpoint any longer and he is sluggish midpoint Review of system: Unobtainable from the patient. Nursing adequate urine output no bowel movements no oral intake has an NG tube, IV site is secure and ventilator settings are stable Objective - Vital Signs Vital signs: Vital Signs Temp 98.5 F 05/10/16 08:00 Pulse 96 05/10/16 11:00 Resp 32 H 05/10/16 11:00 BP 170/91 05/10/16 11:00 Pulse Ox 98 05/10/16 11:00 Intake & Output 05/09/16 05/10/16 05/10/16 18:59 06:59 18:59 Intake Total 877.867 2171.13 350 Output Total 200 2510 250 Balance 0.717 -1421.87 100 Weight 146.5 kg 146.5 kg 146.5 kg Intake: Intake, IV Titration 070.915 5994.13 350 Amount Ampicillin-Sulbactam 3 gm 100 100 100 In Sodium Chloride 0.9% 100 ml @ 100 mls/hr IVPB QID [facility] Rx#:[id number] Magnesium Sulfate-D5w Pmx 200 1 gm In Dextrose/Water 1 100ml.bag @ 100 mls/hr IVPB Q1H [facility] Rx#: [id number] Propofol 500 mg In Empty 0.717 Bag 1 bag @ Titrate IV . Q0M [facility] Rx#:[id number] Propofol 500 mg In Empty 28.13 Bag 1 bag @ Titrate IV . Q0M [facility] Rx#:[id number] Sodium Chloride 0.9% 1, 100 300 000 ml @ 100 mls/hr IV . Q10H [facility] Rx#:[id number] Sodium Chloride 0.9% 1, 400 250 000 ml @ 50 mls/hr IV . Q20H [facility] Rx#:[id number] Oral 60 Output: Urine 200 2510 250 Other: Voiding Method Indwelling Catheter Indwelling Catheter Indwelling Catheter PHYSICAL EXAMINATION: Unresponsive except to very deep stimulus, at present in no acute distress. Patient on a ventilator HEENT: No JVD Chest: Clear to auscultation Cardiac: Normal S1-S2 no gallops no murmur . Abdomen: Soft bowel sounds present. Extremities: No edema no tenderness Neurologically: Obtunded only respond to very deep sternal rub. - Labs CBC & Chem 7: 05/10/16 04:06 05/10/16 04:06 Labs: Abnormal Lab Results - Last 24 Hours (Table) 05/09/16 05/09/16 05/09/16 Range/Units 17:43 18:34 18:42 WBC (3.8-10.6) k/uL RBC (3.80-5.40) m/uL Hgb (11.4-16.0) gm/dL Hct (34.0-46.0) % MCV (80.0-100.0) fL Neutrophils # (1.3-7.7) k/uL ABG pH 7.29 L (7.35-7.45) ABG pCO2 52 H (35-45) mmHg ABG pO2 348 H (83-108) mmHg ABG HCO3 (21-25) mmol/L ABG Total CO2 26 H (19-24) mmol/L ABG O2 Saturation 99.9 H (94-97) % Chloride (98-107) mmol/L Glucose (74-99) mg/dL POC Glucose (mg/dL) 104 H (75-99) mg/dL Magnesium (1.6-2.3) mg/dL Urine Ketones 1+ H (Negative) 05/10/16 05/10/16 05/10/16 Range/Units 01:02 04:06 04:06 WBC 16.7 H (3.8-10.6) k/uL RBC 5.57 H (3.80-5.40) m/uL Hgb 18.0 H (11.4-16.0) gm/dL Hct 55.7 H (34.0-46.0) % MCV 100.1 H (80.0-100.0) fL Neutrophils # 13.4 H (1.3-7.7) k/uL ABG pH (7.35-7.45) ABG pCO2 (35-45) mmHg ABG pO2 (83-108) mmHg ABG HCO3 (21-25) mmol/L ABG Total CO2 (19-24) mmol/L ABG O2 Saturation (94-97) % Chloride 109 H (98-107) mmol/L Glucose 124 H (74-99) mg/dL POC Glucose (mg/dL) 152 H (75-99) mg/dL Magnesium 2.4 H (1.6-2.3) mg/dL Urine Ketones (Negative) 05/10/16 05/10/16 Range/Units 07:30 12:01 WBC (3.8-10.6) k/uL RBC (3.80-5.40) m/uL Hgb (11.4-16.0) gm/dL Hct (34.0-46.0) % MCV (80.0-100.0) fL Neutrophils # (1.3-7.7) k/uL ABG pH (7.35-7.45) ABG pCO2 46 H (35-45) mmHg ABG pO2 147 H (83-108) mmHg ABG HCO3 27 H (21-25) mmol/L ABG Total CO2 28 H (19-24) mmol/L ABG O2 Saturation 99.2 H (94-97) % Chloride (98-107) mmol/L Glucose (74-99) mg/dL POC Glucose (mg/dL) 124 H (75-99) mg/dL Magnesium (1.6-2.3) mg/dL Urine Ketones (Negative) Assessment and Plan Plan: ASSESSMENT: 1. Drug overdose. 2. Metabolic encephalopathy. 3. History of depression. 4. Possible congestive cardiac failure of unclear etiology. 5. History of peripheral neuritis PLAN: . Continue present medical regimen with maintaining adequate hydration, maintaining ventilatory support. Patient's general condition remains guarded prognosis remains guarded. Condition is discussed with the mother.
--- NOTE | 2016-05-10 17:19 | CT ---
EXAMINATION TYPE: CT brain wo con DATE OF EXAM: 05/10/2016 4:56 PM COMPARISON: NONE HISTORY: Patient unresponsive and sedated at time of exam. Possible overdose. CT DLP: 748.7 mGycm Automated exposure control for dose reduction was used. FINDINGS: Ventricles appear normal. There is no mass effect nor midline shift. There is subtle higher attenuati on over the left lateral frontal lobe convexity. Calvarium is intact. IMPRESSION: Equivocal subtle subdural small hematoma over the left lateral frontal lobe convexity. No fracture se en.
[2016-05-10 18:20] LABS: Glucose,Whole Blood 123 mg/dL (75-99)
[2016-05-10 20:10] VITALS: TEMP 100.4
[2016-05-10 21:05] VITALS: BP 177/96
[2016-05-10 21:19] VITALS: PULSE 112; RESP 18
[2016-05-10] MEDS: ENALAPRILAT 1.25 MG/ML 1 ML VIAL IVP PRN (21:22)
--- NOTE | 2016-05-14 09:56 | P.DS ---
Providers Date of admission: 05/09/16 16:30 Attending physician: Gokul Dominguez Consults: 05/10/16 18:40 Consult Physician Stat Consulting Provider: Paula Palacios Consult Reason/Comments: subdural hematoma Do you want consulting provider notified?: Yes Primary care physician: Gokul Dominguez [facility] Course: Hospital course: This 40-year-old female was brought in the emergency room awake. As. Patient states that she had taken an unknown follow-up medication suspected to be about 40+ tablets. She had multiple toddles of medications at home and quite a few of them empties. She had attempted suicide. She has history of depression and history of chronic medical condition dependency and history of cocaine abuse. The patient while in the emergency room at some progressive obtundation and was intubated. There was no cardiac arrest. That been no other reported injury etc. After 24 hours of being on the ventilator patient had started to respond to only very deep pain. In view of this the patient subsequently underwent a CAT scan of the brain which revealed a subtle left frontal subdural hematoma with no fractures. No evidence of any other brain injury or any shift. Due to nonavailability of the neurosurgical service here the patient was transferred to [facility]. Patient's mother was at bedside and have been updated about patient's status on daily basis. Patient was followed by pulmonary/sales service executive. Final diagnosis to include 1. Voluntary drug overdose of unknown medication 2. Suicidal attempt 3. Major depression with repeated suicidal at times in the past 4. Cocaine dependency 5. Obesity 6. Small subdural hematoma left frontal 7. Acute respiratory failure Patient Condition at Discharge: Critical Plan - Discharge Summary Discharge Medication List Albuterol Inhaler [Ventolin Hfa Inhaler] 2 puff INHALATION RT-Q6H PRN 02/13/14 [ History] traMADol HCl [Ultram] 50 mg PO Q6H PRN 11/25/14 [History] Gabapentin 800 mg PO TID 01/07/16 [History] ALPRAZolam [Xanax] 0.5 mg PO BID 04/18/16 [History] Baclofen [Lioresal] 10 mg PO BID PRN 04/18/16 [History] Divalproex ER [Depakote ER] 500 mg PO BID 04/18/16 [History] HYDROcodone/APAP 10-325MG [[place] 10-325] 1 tab PO TID PRN 04/18/16 [History] Ipratropium-Albuterol Nebulize [Duoneb 0.5 mg-3 mg/3 ml Soln] 3 ml INHALATION RT -QID PRN 04/18/16 [History] Nicotine 7Mg/24Hr Patch [Habitrol] 1 patch TRANSDERM DAILY #14 patch 04/19/16 [ Rx] Zolpidem Tartrate [Ambien] 10 mg PO HS 05/09/16 [History] Follow up Appointment(s)/Referral(s): Gokul Dominguez MD [Primary Care Provider] - 1-2 days Discharge Disposition: OTHER INSTITUTION NOT DEFINED
== END 2016-05-10 22:30 | disposition short-term general hospital (02) | DRG 917 ==
LOC: EC 13:17 → 6ICU 16:30
PROVIDERS: ADMIT Internal Medicine; ATTEND Internal Medicine
PROC: 0BH17EZ Insertion of Endotracheal Airway into Trachea, Via Natural or Artificial Opening (ICD-10-PCS; principal; 2016-05-09)
PROC: 5A1945Z Respiratory Ventilation, 24-96 Consecutive Hours (ICD-10-PCS; 2016-05-09)
DX: T50.902A Poisoning by unspecified drugs, medicaments and biological substances, intentional self-harm, initial encounter (principal); S06.5X9A Traumatic subdural hemorrhage with loss of consciousness of unspecified duration, initial encounter; J96.00 Acute respiratory failure, unspecified whether with hypoxia or hypercapnia; G93.41 Metabolic encephalopathy; R45.851 Suicidal ideations; Z68.43 Body mass index [BMI] 50.0-59.9, adult; I50.9 Heart failure, unspecified; I95.9 Hypotension, unspecified; F14.20 Cocaine dependence, uncomplicated; I16.9 Hypertensive crisis, unspecified; J44.9 Chronic obstructive pulmonary disease, unspecified; F31.9 Bipolar disorder, unspecified; F17.200 Nicotine dependence, unspecified, uncomplicated; J45.909 Unspecified asthma, uncomplicated; G89.4 Chronic pain syndrome; E66.9 Obesity, unspecified; F41.9 Anxiety disorder, unspecified; G60.9 Hereditary and idiopathic neuropathy, unspecified; L30.9 Dermatitis, unspecified; Z96.653 Presence of artificial knee joint, bilateral; Z90.710 Acquired absence of both cervix and uterus; Y92.039 Unspecified place in apartment as the place of occurrence of the external cause; Z79.899 Other long term (current) drug therapy
CPT/HCPCS: 31500; 36415; 36600; 43753; 70450; 71010; 80053; 80164; 80306; 81003; 82805; 83520; 83735; 84100; 85025; 87070; 87086; 87205; 93005; 94002; 94003; 94640; 96361; 96365; 96367; 96375; 99291

== ENCOUNTER 2016-06-22 17:38 | Emergency (ER) | payer OTHER ==
[2016-06-22] MEDS ORDERED: ONDANSETRON 4 MG/2 ML VIAL IVP STA (18:30)
[2016-06-22] MEDS ORDERED: SODIUM CHLORIDE 0.9% 1,000 ML IV ONE (18:30)
[2016-06-22] MEDS ORDERED: FAMOTIDINE 20 MG/2 ML VIAL IV STA (18:30)
--- NOTE | 2016-06-22 18:35 | ED ---
Abdominal Pain HPI - General Chief Complaint: Abdominal Pain Stated Complaint: RUQ PAIN Time Seen by Provider: 06/22/16 18:07 Source: patient, RN notes reviewed Mode of arrival: ambulatory Limitations: no limitations - History of Present Illness Initial Comments: Patient is a 40-year-old female presents emergency room for evaluation of abdominal pain. Patient states having right upper quadrant pain for the past few weeks. Patient states the pain is been getting worse today. Patient states she hasn't gotten out of bed due to pain besides coming here. Patient states she is having 8 out of 10 constant stabbing pain in her right upper quadrant. Patient states over the past few weeks the pain did worsen after eating. Patient does admit that she does eat spicy foods. Patient denies constipation or diarrhea. Patient states nauseous but denies vomiting. Patient denies fevers or chills. Patient denies chest pain. Patient denies shortness of breath. Patient states today the pain began radiating from her right upper quadrant into her back. Patient states she has a history of tubal ligation and hysterectomy. Patient denies any other abdominal surgeries. Patient denies pain or burning during urination, trouble urinating or blood in urine. - Related Data Home Medications Medication Instructions Recorded Confirmed Albuterol Inhaler [Ventolin Hfa 2 puff INHALATION RT-Q6H PRN 02/13/14 06/22/16 Inhaler] Gabapentin 800 mg PO TID 01/07/16 06/22/16 Ipratropium-Albuterol Nebulize 3 ml INHALATION RT-QID PRN 04/18/16 06/22/16 [Duoneb 0.5 mg-3 mg/3 ml Soln] Ibuprofen [Motrin] 600 mg PO Q8HR PRN 06/22/16 06/22/16 QUEtiapine [SEROquel] 100 mg PO HS 06/22/16 06/22/16 hydrOXYzine HCL [Atarax] 25 mg PO HS PRN 06/22/16 06/22/16 traZODone HCL [Desyrel] 100 mg PO HS 06/22/16 06/22/16 Previous Rx's Medication Instructions Recorded Famotidine [Pepcid] 20 mg PO DAILY #12 tablet 06/22/16 Ondansetron Odt [Zofran Odt] 4 mg PO Q8HR PRN #12 tab 06/22/16 Allergies Allergy/AdvReac Type Severity Reaction Status Date / Time No Known Allergies Allergy Verified 06/22/16 18:08 Review of Systems ROS Statement: Those systems with pertinent positive or pertinent negative responses have been documented in the HPI. ROS Other: All systems not noted in ROS Statement are negative. Past Medical History Past Medical History: Asthma, Musculoskeletal Disorder, Skin Disorder Additional Past Medical History / Comment(s): Neuropathy, ECZEMA History of Any Multi-Drug Resistant Organisms: None Reported Past Surgical History: Hysterectomy, Tubal Ligation Additional Past Surgical History / Comment(s): Right knee surg x2; last one Past Anesthesia/Blood Transfusion Reactions: No Reported Reaction Past Psychological History: Anxiety, Bipolar, Depression Smoking Status: Current every day smoker Past Alcohol Use History: None Reported Past Drug Use History: Opiates - Past Family History Mother Family Medical History: Cancer Additional Family Medical History / Comment(s): neuropathy General Exam - General Exam Comments Initial Comments: Sitting in exam room, no acute distress. Limitations: no limitations General appearance: alert, in no apparent distress Head exam: Present: atraumatic, normocephalic, normal inspection Eye exam: Present: normal appearance ENT exam: Present: normal exam Neck exam: Present: normal inspection Respiratory exam: Present: normal lung sounds bilaterally. Absent: respiratory distress Cardiovascular Exam: Present: regular rate, normal rhythm, normal heart sounds GI/Abdominal exam: Present: soft, tenderness (Right upper quadrant, mid epigastric), normal bowel sounds. Absent: distended, guarding, rebound, rigid Extremities exam: Present: normal inspection Back exam: Present: normal inspection Neurological exam: Present: alert, oriented X3, CN II-XII intact, normal gait Psychiatric exam: Present: normal affect, normal mood Skin exam: Present: warm, dry, intact, normal color. Absent: rash Course Vital Signs 06/22/16 06/22/16 17:53 21:08 Temperature 97.2 F L 98.0 F Pulse Rate 70 66 Respiratory 16 18 Rate Blood Pressure 152/89 150/89 O2 Sat by Pulse 96 97 Oximetry Medical Decision Making - Medical Decision Making Patient is 32-year-old female presents to the emergency room for evaluation of abdominal pain. Labs show no concerning findings. Chest x-ray shows no evidence for pneumonia, pneumothorax or pleural effusions. Patient states she is feeling better after medications given. Ultrasound shows no evidence for cholelithiasis or cholecystitis. Advised patient to follow-up with primary care provider for further evaluation. Pain could be related to acid reflux. Will send patient home with Michael. Patient states she understands everything that was discussed with her. Return parameters discussed. Case discussed Dr. [place]. - Lab Data Result diagrams: 06/22/16 18:37 06/22/16 18:37 Lab Results 06/22/16 06/22/16 06/22/16 Range/Units 18:37 18:37 18:37 WBC 8.1 (3.8-10.6) k/uL RBC 5.03 (3.80-5.40) m/uL Hgb 15.9 (11.4-16.0) gm/dL Hct 49.1 H (34.0-46.0) % MCV 97.6 (80.0-100.0) fL MCH 31.5 (25.0-35.0) pg MCHC 32.3 (31.0-37.0) g/dL RDW 13.1 (11.5-15.5) % Plt Count 196 (150-450) k/uL Neutrophils % 61 % Lymphocytes % 28 % Monocytes % 5 % Eosinophils % 3 % Basophils % 1 % Neutrophils # 4.9 (1.3-7.7) k/uL Lymphocytes # 2.3 (1.0-4.8) k/uL Monocytes # 0.4 (0-1.0) k/uL Eosinophils # 0.2 (0-0.7) k/uL Basophils # 0.1 (0-0.2) k/uL Sodium 137 (137-145) mmol/L Potassium 4.6 (3.5-5.1) mmol/L Chloride 106 (98-107) mmol/L Carbon Dioxide 25 (22-30) mmol/L Anion Gap 6 mmol/L BUN 10 (7-17) mg/dL Creatinine 0.70 (0.52-1.04) mg/dL Est GFR (MDRD) Af Amer >60 (>60 ml/min/1.73 sqM) Est GFR (MDRD) Non-Af >60 (>60 ml/min/1.73 sqM) Glucose 82 (74-99) mg/dL Calcium 8.5 (8.4-10.2) mg/dL Total Bilirubin 0.6 (0.2-1.3) mg/dL AST 33 (14-36) U/L ALT 34 (9-52) U/L Alkaline Phosphatase 60 (38-126) U/L Total Protein 6.2 L (6.3-8.2) g/dL Albumin 3.5 (3.5-5.0) g/dL Amylase 49 (30-110) U/L Lipase 80 (23-300) U/L Urine Color Yellow Urine Appearance Cloudy H (Clear) Urine pH 6.5 (5.0-8.0) Ur Specific [place] 1.025 (1.001-1.035) Urine Protein 1+ H (Negative) Urine Glucose (UA) Negative (Negative) Urine Ketones Negative (Negative) Urine Blood Negative (Negative) Urine Nitrite Negative (Negative) Urine Bilirubin Negative (Negative) Urine Urobilinogen 3.0 (<2.0) mg/dL Ur Leukocyte Esterase Negative (Negative) Urine RBC 11 H (0-5) /hpf Urine WBC 5 (0-5) /hpf Ur Squamous Epith Cells 45 H (0-4) /hpf Calcium Oxalate Crystal Occasional H (None) /hpf Urine Bacteria Many H (None) /hpf Urine Mucus Many H (None) /hpf - Radiology Data Radiology results: report reviewed, image reviewed Disposition Clinical Impression: Abdominal pain Disposition: HOME SELF-CARE Condition: Good Instructions: Abdominal Pain (ED) Additional Instructions: Take medications as directed. Refrain from spicy food. Please follow up with primary care provider in 1-2 days. If any new symptom arises or symptoms worsen , return to ER as soon as possible. Prescriptions: Ondansetron Odt [Zofran Odt] 4 mg PO Q8HR PRN #12 tab PRN Reason: Nausea Famotidine [Pepcid] 20 mg PO DAILY #12 tablet Referrals: Gokul Dominguez MD [Primary Care Provider] - 1-2 days Time of Disposition: 21:35
[2016-06-22 18:54] LABS: Basophils # (A) 0.1 k/uL (0-0.2); Basophils % (A) 1 %; CH 31.9; CHCM 32.8; Eosinophils # (A) 0.2 k/uL (0-0.7); Eosinophils % (A) 3 %; HCT 49.1 % (34.0-46.0); HGB 15.9 gm/dL (11.4-16.0); Luc % (Auto) 3; Lymphocytes # (A) 2.3 k/uL (1.0-4.8); Lymphocytes % (A) 28 %; MCH 31.5 pg (25.0-35.0); MCHC 32.3 g/dL (31.0-37.0); MCV 97.6 fL (80.0-100.0); Monocytes # (A) 0.4 k/uL (0-1.0); Monocytes % (A) 5 %; Neutrophils # (A) 4.9 k/uL (1.3-7.7); Neutrophils % (A) 61 %; RBC 5.03 m/uL (3.80-5.40); RDW 13.1 % (11.5-15.5); WBC 8.1 k/uL (3.8-10.6); WBC (Perox) 7.53
[2016-06-22 19:05] LABS: Amylase 49 U/L (30-110); Anion Gap 6 mmol/L; Calcium 8.5 mg/dL (8.4-10.2); Carbon Dioxide 25 mmol/L (22-30); Chloride 106 mmol/L (98-107); Glucose 82 mg/dL (74-99); Non-African American GFR(MDRD) >60 (>60 ml/min/1.73 sqM); Sodium 137 mmol/L (137-145); Total Bilirubin 0.6 mg/dL (0.2-1.3)
[2016-06-22 19:12] LABS: ALT 34 U/L (9-52); AST 33 U/L (14-36); Alkaline Phosphatase 60 U/L (38-126); Blood Urea Nitrogen 10 mg/dL (7-17); Potassium 4.6 mmol/L (3.5-5.1); Total Protein 6.2 g/dL (6.3-8.2)
[2016-06-22] MEDS ORDERED: HYDROmorphone 1 MG/ML 1 ML SYRINGE IVP STA (19:27)
[2016-06-22 19:37] LABS: Appearance,Urine Cloudy (Clear); Bacteria,Urine Many /hpf; Bilirubin,Urine Negative (Negative); Calcium Oxalate Crystals,Urine Occasional /hpf; Glucose,Urine (UA) Negative (Negative); Ketones,Urine Negative (Negative); Leukocyte Esterase,Urine Negative (Negative); Mucus,Urine Many /hpf; Nitrite,Urine Negative (Negative); PH, Urine 6.5 (5.0-8.0); Particle Count 32453; Protein,Urine 1+ (Negative); RBC,Urine 11 /hpf (0-5); Specific Gravity,Urine 1.025 (1.001-1.035); Squamous Epithelial Cell,Urine 45 /hpf (0-4); UA Billing (MACRO vs. MICRO) MICRO; WBC,Urine 5 /hpf (0-5)
--- NOTE | 2016-06-22 20:56 | US ---
EXAMINATION TYPE: US abdomen limited DATE OF EXAM: 06/22/2016 8:41 PM COMPARISON: CT and US in PACS- 2014 CLINICAL HISTORY: RUQ Pain. Nausea Difficult/limited exam due to patient body habitus and overlying bowel EXAM MEASUREMENTS: Liver Length: 18.0 cm Gallbladder Wall: 0.2 cm CBD: 0.4 cm Right Kidney: 10.7 x 4.5 x 5.0 cm Pancreas: Tail obscured by overlying bowel gas, visualized portions show no mass Liver: Measuring upper limits of normal. Limited visualization due to overlying bowel gas, visualize d portions show no mass. Gallbladder: No stones or sludge seen Evidence for sonographic Juan's sign: No CBD: wnl Right Kidney: No hydronephrosis or masses seen IMPRESSION: Negative right upper quadrant abdominal sonogram. No gallstones or dilated ducts.
[2016-06-22 21:10] VITALS: BP 150/89; PULSE 66; RESP 18; TEMP 98
--- NOTE | 2016-06-22 21:26 | XR ---
EXAMINATION TYPE: XR chest 2V DATE OF EXAM: 06/22/2016 9:22 PM COMPARISON: 05/10/2016 HISTORY: Chest pain TECHNIQUE: Frontal and lateral views of the chest are obtained. FINDINGS: There is no heart failure nor confluent pneumonic infiltrate. Heart and mediastinum appear normal. There are no hilar masses. Bony thorax is intact. IMPRESSION: Normal chest. No change.
== END 2016-06-22 21:52 | disposition home or self-care (01) ==
LOC: EC 17:38
DX: R10.11 Right upper quadrant pain (principal); R11.0 Nausea; J45.909 Unspecified asthma, uncomplicated; F31.9 Bipolar disorder, unspecified; F41.9 Anxiety disorder, unspecified; F17.200 Nicotine dependence, unspecified, uncomplicated; Z79.899 Other long term (current) drug therapy
CPT/HCPCS: 36415; 80053; 82150; 83690; 85025; 81001; 71020; 76705; 99284; 96374; 96375 ×2; 96361 ×3; J2405; J1170

== ENCOUNTER 2017-03-08 17:15 | Inpatient (IN) | payer MEDICAID, OTHER ==
--- NOTE | 2017-03-08 17:31 | ED ---
General Adult HPI - General Chief complaint: Psychiatric Symptoms Stated complaint: Mental health Time Seen by Provider: 03/08/17 17:26 Source: patient, RN notes reviewed, old records reviewed Mode of arrival: ambulatory Limitations: no limitations - History of Present Illness Initial comments: 41-year-old female presenting for evaluation of suicidal ideation. Patient states she does have a plan to overdose or hang herself. She has been depressed for the past several days. This worsened this afternoon. She has history of depression, she has had inpatient psychiatric treatment in the past. She denies taking any substances today. She denies any physical harm. She has no physical complaints. - Related Data Home Medications Medication Instructions Recorded Confirmed Gabapentin 800 mg PO TID 01/07/16 03/08/17 Ergocalciferol (Vitamin D2) 50,000 unit PO TH 01/19/17 03/08/17 [Vitamin D2] Omeprazole 20 mg PO DAILY 01/19/17 03/08/17 DULoxetine HCL [Cymbalta] 60 mg PO DAILY 03/08/17 03/08/17 LORazepam [Ativan] 1 mg PO TID PRN 03/08/17 03/08/17 Lurasidone [Latuda] 80 mg PO HS 03/08/17 03/08/17 Ofloxacin 0.3% Ophth Soln [Ocuflox 1 drops BOTH EYES TID 03/08/17 03/08/17 Ophth Soln] Prazosin [Minipress] 1 mg PO BID 03/08/17 03/08/17 traMADol HCL [Ultram] 100 mg PO BID 03/08/17 03/08/17 traZODone HCL [Desyrel] 200 mg PO HS 03/08/17 03/08/17 Allergies Allergy/AdvReac Type Severity Reaction Status Date / Time No Known Allergies Allergy Verified 03/08/17 18:16 Review of Systems ROS Statement: Those systems with pertinent positive or pertinent negative responses have been documented in the HPI. ROS Other: All systems not noted in ROS Statement are negative. Past Medical History Past Medical History: Asthma, GERD/Reflux, Musculoskeletal Disorder, Respiratory Disorder Additional Past Medical History / Comment(s): Neuropathy, Asthma, Torn R Rotator cuff, bulging discs, bilat. knee joints need replacement History of Any Multi-Drug Resistant Organisms: None Reported Past Surgical History: Hysterectomy, Tubal Ligation Additional Past Surgical History / Comment(s): Right knee surg x3; Partial hysterectomy 2010/ovaries intact, Colonoscopy 2013 Past Anesthesia/Blood Transfusion Reactions: No Reported Reaction Past Psychological History: Anxiety, Bipolar, Depression Smoking Status: Current every day smoker Past Alcohol Use History: Occasional Past Drug Use History: None Reported - Past Family History Mother Family Medical History: Cancer Additional Family Medical History / Comment(s): neuropathy; Mother had Colon Cancer General Exam Limitations: no limitations General appearance: alert, in no apparent distress, obese Head exam: Present: atraumatic, normocephalic Eye exam: Present: normal appearance, PERRL ENT exam: Present: normal exam Neck exam: Present: normal inspection. Absent: tenderness, meningismus Respiratory exam: Present: normal lung sounds bilaterally. Absent: respiratory distress Cardiovascular Exam: Present: regular rate, normal rhythm GI/Abdominal exam: Present: soft. Absent: distended, tenderness Extremities exam: Present: normal inspection. Absent: tenderness Back exam: Present: normal inspection, full ROM. Absent: tenderness Neurological exam: Present: alert, oriented X3, CN II-XII intact, motor sensory deficit Psychiatric exam: Present: depressed, suicidal ideation Skin exam: Present: warm, dry, intact. Absent: cyanosis, diaphoretic Course Vital Signs 03/08/17 17:21 Temperature 97.8 F Pulse Rate 80 Respiratory 18 Rate O2 Sat by Pulse 96 Oximetry Medical Decision Making - Medical Decision Making Patient is evaluated by EPS, she does meet inpatient psychiatric line's. She will be admitted to this hospital for further evaluation and treatment. - Lab Data Lab Results 03/08/17 03/08/17 Range/Units 17:41 17:41 Urine HCG, Qual Not Detected (Not Detectd) Urine Opiates Screen Not Detected (NotDetected) Ur Oxycodone Screen Not Detected (NotDetected) Urine Methadone Screen Not Detected (NotDetected) Ur Propoxyphene Screen Not Detected (NotDetected) Ur Barbiturates Screen Not Detected (NotDetected) U Tricyclic Antidepress Not Detected (NotDetected) Ur Phencyclidine Scrn Not Detected (NotDetected) Ur Amphetamines Screen Not Detected (NotDetected) U Methamphetamines Scrn Detected H (NotDetected) U Benzodiazepines Scrn Not Detected (NotDetected) Urine Cocaine Screen Not Detected (NotDetected) U Marijuana (THC) Screen Not Detected (NotDetected) Disposition Clinical Impression: Suicidal ideation, Depression Disposition: ADMITTED IP TO THIS HOSP Referrals: Gokul Dominguez MD [Primary Care Provider] - 1-2 days Decision to Admit Reason: Admit from EC Decision Date: 03/08/17 Decision Time: 21:09
[2017-03-08 17:59] LABS: Amphetamine Screen,Urine Not Detected (NotDetected); Barbiturate Screen,Urine Not Detected (NotDetected); Benzodiazepines Screen,Urine Not Detected (NotDetected); Cocaine Screen,Urine Not Detected (NotDetected); Methadone Screen, Urine Not Detected (NotDetected); Opiate Screen,Urine Not Detected (NotDetected); Oxycodone Screen, Urine Not Detected (NotDetected); Phencyclidine Screen,Urine Not Detected (NotDetected); Tricyclic Antidepressant,Urine Not Detected (NotDetected); Urn Cannabinoid Scrn Not Detected (NotDetected)
[2017-03-08] MEDS ORDERED: MAG HYDROX/AL HYDROX/SIMETH 30 ML CUP PO PRN (22:05)
[2017-03-08] MEDS ORDERED: ACETAMINOPHEN TAB 325 MG TAB PO PRN (22:05)
[2017-03-08] MEDS ORDERED: MAGNESIUM HYDROXIDE 2,400 MG/10 ML CUP PO PRN (22:05)
[2017-03-08] MEDS ORDERED: hydrOXYzine PAMOATE 25 MG CAP PO PRN (22:12)
[2017-03-08] MEDS: NYSTATIN 100,000 UNIT/GM POWD 15 GM TOPICAL SCH (22:51)
[2017-03-08] MEDS: PRAZOSIN 1 MG CAP PO SCH (22:51)
[2017-03-08] MEDS: traZODone HCL 100 MG TAB PO SCH (22:51)
[2017-03-08] MEDS: DULoxetine HCL 60 MG CAPSULE.DR PO SCH (22:51)
[2017-03-08] MEDS: OFLOXACIN 0.3% OPHTH DROPS 5 ML BOTTLE BOTH EYES SCH (22:51)
[2017-03-08] MEDS: LURASIDONE 80 MG TAB PO SCH (22:51)
[2017-03-08] MEDS: SPIRONOLACTONE 25 MG TAB PO SCH (22:51)
[2017-03-08] MEDS: GABAPENTIN 400 MG CAP PO SCH (22:51)
[2017-03-08] MEDS: traMADol 50 MG TAB PO PRN (22:58)
[2017-03-08] MEDS: OXYMETAZOLINE 0.05% NASL SPRAY 1 SPRAY BOTTLE NASAL SCH (22:59)
[2017-03-09 06:48] VITALS: RESP 18
[2017-03-09] MEDS: NICOTINE 21MG/24HR PATCH TRANSDERM SCH (09:48)
[2017-03-09] MEDS: GABAPENTIN 400 MG CAP PO SCH ×3 (09:48→20:43)
[2017-03-09] MEDS: FUROSEMIDE 20 MG TAB PO SCH (09:49)
[2017-03-09] MEDS: DULoxetine HCL 60 MG CAPSULE.DR PO SCH ×2 (09:49→20:44)
[2017-03-09] MEDS: PANTOPRAZOLE 40 MG TABLET PO SCH (09:50)
[2017-03-09] MEDS: NYSTATIN 100,000 UNIT/GM POWD 15 GM TOPICAL SCH ×2 (09:51→20:43)
[2017-03-09] MEDS: OXYMETAZOLINE 0.05% NASL SPRAY 1 SPRAY BOTTLE NASAL SCH ×2 (09:51→20:43)
[2017-03-09] MEDS: traMADol 50 MG TAB PO PRN ×2 (09:52→20:45)
[2017-03-09] MEDS: OFLOXACIN 0.3% OPHTH DROPS 5 ML BOTTLE BOTH EYES SCH ×3 (09:52→20:43)
[2017-03-09] MEDS: SPIRONOLACTONE 25 MG TAB PO SCH ×2 (09:55→20:43)
[2017-03-09] MEDS: PRAZOSIN 1 MG CAP PO SCH ×2 (09:55→20:43)
[2017-03-09 10:18] LABS: ALT 38 U/L (9-52); AST 22 U/L (14-36); Albumin 3.4 g/dL (3.5-5.0); Alkaline Phosphatase 46 U/L (38-126); Anion Gap 7 mmol/L; Blood Urea Nitrogen 18 mg/dL (7-17); Calcium 9.4 mg/dL (8.4-10.2); Carbon Dioxide 28 mmol/L (22-30); Chloride 104 mmol/L (98-107); Cholesterol 140 mg/dL (<200); Glucose 122 mg/dL (74-99); HDL Cholesterol 36 mg/dL (40-60); LDL Cholesterol,Calculated 85 mg/dL (0-99); Potassium 4.6 mmol/L (3.5-5.1); Sodium 139 mmol/L (137-145); Total Bilirubin 0.5 mg/dL (0.2-1.3); Total Protein 5.8 g/dL (6.3-8.2); Triglycerides 96 mg/dL (<150)
[2017-03-09 11:21] LABS: Basophils % (A) 1 %; Eosinophils # (A) 0.1 k/uL (0-0.7); Eosinophils % (A) 2 %; HCT 49.2 % (34.0-46.0); HGB 15.8 gm/dL (11.4-16.0); Lymphocytes # (A) 1.9 k/uL (1.0-4.8); Lymphocytes % (A) 31 %; MCH 31.5 pg (25.0-35.0); MCV 98.3 fL (80.0-100.0); Mean Platelet Volume 7.9; Monocytes # (A) 0.4 k/uL (0-1.0); Monocytes % (A) 6 %; Neutrophils # (A) 3.5 k/uL (1.3-7.7); Neutrophils % (A) 58 %; Platelet Count 166 k/uL (150-450); RBC 5.01 m/uL (3.80-5.40); RDW 14.4 % (11.5-15.5)
--- NOTE | 2017-03-09 12:13 | HP ---
HISTORY AND PHYSICAL IDENTIFYING DATA: The patient is a 41-year-old female. She lives with her mother, stepfather, and daughter. She was referred through the emergency room for evaluation. CHIEF COMPLAINT: The patient was depressed. She had thoughts of suicide with a plan to overdose or hang herself. She has had increasing depression over the last several days. HISTORY OF PRESENT ILLNESS: Patient has had long-term psychiatric issues. She has had several psychiatric hospitalizations at this facility including in April of 2016 for a serious overdose leading to several days in ICU. Her last admission here was January 20. I refer the reader to Dr. Hansen's admission note and other medical records for details. In January, she was admitted for depression with suicidal thinking. The patient says today that her current situation is pretty similar to January. She says that she has had depression intermittently throughout her entire life going back to childhood. She says she has what she calls "manic" episodes that last less than a day. She gets loud. She gets intense. Her thoughts are speeded up. She gets a euphoric mood. She says when she gets into that phase she just feels happy though people think that she has some unusual behavior and how she is acting. She says these episodes never last more than one day. She says she will get into an episode like that about once a week or once every 2 weeks and this has been going on much of her life. Beyond that, she says she gets intermittent depression also on a fairly consistent basis. She says she gets down in her mood. She gets quite hopeless. When she gets into a depressed mood, it can last for days, weeks or even months. She does not identify a clear precipitant. She does note that her medications have helped to some extent. She has been on Cymbalta, which she says has helped with pain. She says more recently she got on prazosin for anxiety and felt that it calmed her anxiety quite a bit. She has significant substance use issues including a history of crack cocaine use as her drug of choice. She said in her early 20s, she used it regularly. She stopped using for about 10 years straight and then had a relapse where she again was using regularly for about 2 years. She stopped using cocaine on a regular basis at the end of 2015. She was in substance use rehab programs in the past. On May 09, 2016, she was admitted to this facility for overdose of at least 40 tablets of baclofen. She had progressive obtundation. She was found to have a subtle left frontal subdural hematoma. She was transferred to [facility] and apparently continued in ICU. From there, she was transferred to [facility]. She went into rehabilitation program and then went to a 3/4 house before returning home. Currently, she says she is sleeping fair. She says she gets up in the morning to get her daughter off for school, then she gets involved in community mental health activities including various groups and education programs. The patient was not able to clearly identify precipitants to her increasing depression that brings her into the hospital now. Current psychotropic medications include Cymbalta 60 mg twice a day, Latuda 80 mg at bedtime, Desyrel 200 mg at bedtime and Minipress 1 mg twice a day. She is also on Neurontin 800 mg 3 times a day. She is admitted for further evaluation. SUBSTANCE USE HISTORY: As above. PAST MEDICAL HISTORY AND REVIEW OF SYSTEMS: As per medical consultation. FAMILY AND SOCIAL HISTORY: I refer the reader to the admission note and other records of Dr. Hansen of 01/20/2017 for details. MENTAL STATUS EXAM: Patient was somewhat slowed in her movement. She answered questions with direct responses. Her thoughts were clear. She was somewhat interactive. Her affect was blunted. Her mood depressed. She seemed moderately distressed. On cognitive exam, she was oriented x3 and alert. Recent and remote memory were intact. Attention and concentration fair. She could spell world forward and backward. She did adequate calculations. Insight and judgment uncertain. Fund of knowledge and intellectual level average. ASSESSMENT: This 41-year-old female is diagnosed with major depression. She has had long-term problems with mood disorder and substance abuse disorder. It is noteworthy that her urine drug screen is positive for methamphetamines, which it was during her admission in January as well. Patient is adamant that she had not used any abuse of substances for a number of months. Strengths include that she appears to be able to support her daughter and seek out appropriate support through [facility]. Weakness includes her relapsing mood disorder. DIAGNOSES: 1. Major depression, chronic and recurrent with acute exacerbation without psychotic features. 2. Substance dependence, crack cocaine, uncertain remission. 3. Chronic back pain. 4. Multiple orthopedic issues. 5. Neuropathy. RECOMMENDATIONS: Patient will be admitted for comprehensive medical psychiatric and psychosocial evaluation. We will engage the patient in individual and group therapeutic activities. I will continue her psychotropic medications the same. I had an extensive discussion with the patient regarding treatment issues. At this point, I will add lithium carbonate 300 mg twice a day. The aim of lithium is to help augment her antidepressant. We discussed that I would limit medications to just initiating lithium augmentation. She has a complicated set of psychotropic medications. We discussed the downside to long-term use of opioid pain medications, which may be a significant contributor to recurrent depression issues. We will focus on stabilization and discharge planning. MMDOMIL / BENTONN: [id number] /
[2017-03-09] MEDS: LITHIUM CARBONATE 300 MG CAP PO SCH ×2 (14:57→20:43)
--- NOTE | 2017-03-09 16:40 | CONS ---
CONSULTATION This is a 61-year-old female who was brought to the emergency room with severe mental depression and suicidal ideation. The patient was evaluated in the emergency room and admitted to the mental health unit under Dr. Saab's care. I was asked to see the patient in consultation, as I am her primary care physician and also for medical evaluation and followup. The patient has a longstanding history of psychiatric problems and she is known to have bipolar disorder. She has had multiple hospitalizations for mental depression and also for suicidal ideation. She is also known to have morbid obesity, gastroesophageal reflux disease, hypertensive cardiovascular disease, fibromyalgia and severe low back pain. CURRENT MEDICATIONS: Her current medications include: 1. Cymbalta 60 mg p.o. b.i.d. 2. Tylenol p.r.n. 3. Lasix 20 mg p.o. daily. 4. Neurontin 800 mg p.o. t.i.d. 5. Vistaril 25 mg b.i.d. p.r.n. During this hospitalization she was also started on: 1. [place] carbonate 300 mg p.o. b.i.d. 2. Latuda 80 mg p.o. daily at bedtime. 3. Milk of magnesia p.r.n. 4. Nicotine patch. 5. She is being continued on her eyedrops. 6. Protonix 20 mg p.o. daily. 7. Minipress 1 mg b.i.d. 8. Aldactone 25 mg p.o. b.i.d. 9. Trazodone 200 mg p.o. daily at bedtime. 10.Tramadol 100 mg p.o. b.i.d. ALLERGIES: NO KNOWN DRUG ALLERGIES. SOCIAL HISTORY: She smokes and she is currently on a nicotine patch. The patient lives with her mother and her daughter. FAMILY HISTORY: Positive for mental health problems and heart disease. REVIEW OF SYSTEMS: Patient denies any headache. Appetite had been good, bowels regular. She has no chest pain. She has no cough. She has no abdominal pain. She has low back pain and she is on tramadol. She has no polyuria or dysuria. She has no other neurological symptoms. In the emergency room, her CBC was unremarkable and blood chemistry, cholesterol, TSH were also within normal limits. Her urine drug screening showed and was positive for methamphetamine. PHYSICAL EXAMINATION: Physical examination reveals a 41-year-old white female, morbidly obese. She is alert and oriented. She is in no acute distress. There is no jaundice. There is no generalized lymphadenopathy. There are no petechiae or bruises. Pulse 80 per minute, regular. Blood pressure 154/70. EXAMINATION OF THE ENT: Negative. NECK: Supple. There is no jugular venous distention. There is no goiter and there is no carotid bruit. Heart is in sinus rhythm. LUNGS: Clear to auscultation and percussion. ABDOMEN: Soft, nontender. Morbidly obese. Examination of the lower extremities reveals no pitting edema. Neurologic examination does not reveal localizing signs. IMPRESSION: 1. Major depression with suicidal ideation. 2. Bipolar disorder. 3. Morbid obesity. 4. Gastroesophageal reflux disease. 5. Hypertensive cardiovascular disease. 6. Severe low back pain. 7. Fibromyalgia. RECOMMENDATIONS: The patient has been admitted for her major depression and the patient has been continued on her previous home medications and also started on lithium carbonate now. Medically her vital signs are stable. There are no cardiorespiratory problems. She has been placed back on her previous home medications. Medically the patient is stable. We will continue current medications. Thank you for asking me to see this patient in consultation. We will follow the patient with you for her medical problems. MMODL / IJN: [id number] /
[2017-03-09 17:44] LABS: Hemoglobin A1C 5.1 % (4.0-6.0)
[2017-03-09] MEDS: traZODone HCL 100 MG TAB PO SCH (20:43)
[2017-03-09] MEDS: LURASIDONE 80 MG TAB PO SCH (20:43)
[2017-03-10] MEDS: NICOTINE 21MG/24HR PATCH TRANSDERM SCH (08:24)
[2017-03-10] MEDS: PRAZOSIN 1 MG CAP PO SCH ×2 (08:25→21:32)
[2017-03-10] MEDS: PANTOPRAZOLE 40 MG TABLET PO SCH (08:25)
[2017-03-10] MEDS: SPIRONOLACTONE 25 MG TAB PO SCH ×2 (08:25→21:32)
[2017-03-10] MEDS: LITHIUM CARBONATE 300 MG CAP PO SCH ×2 (08:25→21:32)
[2017-03-10] MEDS: DULoxetine HCL 60 MG CAPSULE.DR PO SCH ×2 (08:25→21:32)
[2017-03-10] MEDS: FUROSEMIDE 20 MG TAB PO SCH (08:25)
[2017-03-10] MEDS: OFLOXACIN 0.3% OPHTH DROPS 5 ML BOTTLE BOTH EYES SCH ×3 (08:26→23:56)
[2017-03-10] MEDS: NYSTATIN 100,000 UNIT/GM POWD 15 GM TOPICAL SCH ×2 (08:26→21:33)
[2017-03-10] MEDS: GABAPENTIN 400 MG CAP PO SCH ×3 (08:26→21:32)
[2017-03-10] MEDS: OXYMETAZOLINE 0.05% NASL SPRAY 1 SPRAY BOTTLE NASAL SCH ×2 (08:26→21:33)
[2017-03-10] MEDS: traMADol 50 MG TAB PO PRN ×2 (08:31→21:32)
--- NOTE | 2017-03-10 13:40 | PN ---
PROGRESS NOTE This is a 41-year-old white female who was admitted to mental health unit because of major depression and this patient was seen by me in consultation for medical evaluation and management. She is known to have bipolar disorder and she has been on psychiatric medications and she has been following with [facility] and since admission, patient was started on lithium in addition to her previous home medications. Medically, she has been on medication for gastroesophageal reflux disease and low back pain, for major depression and also fibromyalgia. The patient today seemed to have improved mentally. She is alert and oriented and no acute distress. Her vital signs are stable. Heart is in sinus rhythm. Lungs are clear and there is no acute cardiorespiratory problems. She denies any chest pain or shortness of breath. Medically, she is stable and will continue current medications. Prognosis is guarded. MMODL / IJN: [id number] /
--- NOTE | 2017-03-10 17:56 | PN ---
PROGRESS NOTE DATE OF SERVICE: 03/10/2017 CHIEF COMPLAINT: The patient was depressed. She had thoughts of suicide with a plan to overdose or hang herself. She has had increasing depression over the last several days. INTERVAL HISTORY: Patient has been doing fairly well. She had a quiet evening last night. She slept well. Today she has been up. She says her mood is much brighter today. She has a better outlook. She says that typically when she has a manic episode, which often can occur even on a once-a-week basis, she starts looking for when she might crash. She said it does not always happen, although she starts worrying about how her depression can get to the point where she becomes suicidal. She says it is a little unusual that she is feeling as good as she is today and that typically if she has a manic episode and then goes into some depression, she does not come out of it quickly like she seems to have had. She has better self-care. She has been attending groups. She comes out in the day area. She interacts with others. She has not had change in her general health. She tolerates her psychotropic medications. MENTAL STATUS: Patient gave good eye contact. Psychomotor activity and speech were normal. Her thoughts were clear. Her affect was a little constricted. Her mood was quiet. She did not appear to be distressed. ASSESSMENT: I will continue the current diagnosis and treatment plan. I had an extensive discussion with the patient regarding treatment of bipolar disorder, both in terms of bipolar yves as well as bipolar depression. I discussed with the patient that she may be showing a positive response to lithium augmentation to her antidepressant. It is the case that lithium augmentation may show response within 12 to 24 hours of starting the medication. That is at least one possibility here. I discussed with the patient that if she is not seeing some evening of her mood and if she still is having some periods of yves or hypomania or depression, it might be reasonable to talk to Dr. Casiano about titrating up on lithium. I will get a lithium level in the morning. I anticipate her lithium level will be on the lower side, which is fine as far as augmentation goes, though she may need to get into a more therapeutic range if she is continuing to have more bipolar symptoms, given that the patient is making good progress. I would look to discharge the patient tomorrow. MMODL / IJN: [id number] /
[2017-03-10] MEDS: traZODone HCL 100 MG TAB PO SCH (21:32)
[2017-03-10] MEDS: LURASIDONE 80 MG TAB PO SCH (21:32)
[2017-03-11 07:04] VITALS: BP 122/63; PULSE 74; TEMP 97.9
[2017-03-11] MEDS ORDERED: ERGOCALCIFEROL 50,000 UNIT CAP PO SCH (09:00)
[2017-03-11] MEDS: OXYMETAZOLINE 0.05% NASL SPRAY 1 SPRAY BOTTLE NASAL SCH (09:09)
[2017-03-11] MEDS: NICOTINE 21MG/24HR PATCH TRANSDERM SCH (09:09)
[2017-03-11] MEDS: GABAPENTIN 400 MG CAP PO SCH (09:10)
[2017-03-11] MEDS: PRAZOSIN 1 MG CAP PO SCH (09:10)
[2017-03-11] MEDS: DULoxetine HCL 60 MG CAPSULE.DR PO SCH (09:10)
[2017-03-11] MEDS: PANTOPRAZOLE 40 MG TABLET PO SCH (09:10)
[2017-03-11] MEDS: NYSTATIN 100,000 UNIT/GM POWD 15 GM TOPICAL SCH (09:10)
[2017-03-11] MEDS: FUROSEMIDE 20 MG TAB PO SCH (09:10)
[2017-03-11] MEDS: SPIRONOLACTONE 25 MG TAB PO SCH (09:11)
[2017-03-11] MEDS: traMADol 50 MG TAB PO PRN (09:11)
[2017-03-11] MEDS: LITHIUM CARBONATE 300 MG CAP PO SCH (10:50)
[2017-03-11] MEDS: OFLOXACIN 0.3% OPHTH DROPS 5 ML BOTTLE BOTH EYES SCH (10:50)
--- NOTE | 2017-03-11 12:45 | DS ---
DISCHARGE SUMMARY DATE OF SERVICE: 03/11/2017 DATE OF ADMISSION: 03/08/2017 DATE OF DISCHARGE: 03/11/2017 ADMISSION AND DISCHARGE DIAGNOSES: 1. Major depression, chronic and recurrent with acute exacerbation without psychotic features. 2. Substance dependence, crack cocaine, uncertain remission. 3. Chronic back pain. 4. Multiple orthopedic issues. 5. Neuropathy. HISTORY OF PRESENT ILLNESS: The patient is a 41-year-old female. She was admitted due to depression. She had suicide thoughts with a plan of overdose or hanging herself. She has had a number of psychiatric hospitalizations in the past with her last being April 2016 for a serious overdose attempt, which included several days in ICU. Her last psychiatric admission here was January 20, 2017. I refer the reader to Dr. Hansen's admission note and other medical records for detail at that time she was admitted for depression with suicidal thinking. On this admission the patient said things were similar to January. She described intermittent depression going back to childhood. She described "manic" episodes where she would get loud. She would get intense, her thoughts would speed up and she would have euphoric mood. She said that her experience of it was that she was just "happy." The people thought her behavior was unusual. She said these episodes would never last more than a day or part of the day, some of the time she would go from one of these episodes into depression where she would get very down, hopeless, and have suicide thoughts. She has been on Cymbalta, which she said she takes for pain. She said that she started prazosin which helps significantly with anxiety. She has a significant history of substance use with crack cocaine as her drug of choice. She had stopped using for about 10 years straight, though had relapsed and was using it regularly for about 2 years. She said she stopped regularly use of cocaine around the end of 2015. She has been in substance use rehab programs in the past. She currently was on Latuda 80 mg a day, Desyrel 200 mg at bedtime and Neurontin 800 mg 3 times a day in addition to her Cymbalta and Minipress. She was admitted for further evaluation. PAST MEDICAL HISTORY AND PHYSICAL EXAM: As per medical consultation of Dr. Dominguez. MENTAL STATUS EXAM: The patient was slowed in movement. She answered questions with direct responses. Her thoughts were clear. Her affect was blunted. Mood depressed. She was moderately distressed. Cognition was clear. COURSE OF HOSPITALIZATION: The patient was admitted for comprehensive medical psychiatric and psychosocial evaluation. We engaged the patient in individual and group therapeutic activities. It is noted that lab work on admission included toxicology being positive for methamphetamines, though the patient was quite clear that she had not used any illicit drugs. The same was the case for her admission in January. On admission, the patient was continued on her outpatient medications as noted above. In addition, she was started on lithium carbonate 300 mg twice a day. The aim of lithium was to augment her antidepressant. Early on in her hospitalization, the patient seemed quite withdrawn. She had a negative outlook. She was slowed in her movement. She had quite a dysphoric look. She showed a fairly positive response on the unit. Within 24 hours her mood had improved significantly. She was coming out in the day area. She attended groups. She was interactive. She was appropriate in her manner. We discussed the thought that she may have shown a positive response to a lithium augmentation which can show significant improvement within 12 to 24 hours. Whether or not there are other factors contributing to her change in mood were unclear. Patient was showing much better self-care. She had a much better outlook. She was able to engage appropriately in discharge planning. It is noted that I had an extensive discussion with the patient regarding the problems with long-term use of opioid pain medications including tramadol. The patient was distressed over that discussion believing that her chronic pain cannot be managed without opioid pain medications. I strongly encouraged her to work on nonpharmacologic interventions for pain management and that in the long run, continued use of opioid pain medications increases her risk for not only mood disorder but also exacerbation of pain issues. CONDITION AT DISCHARGE: Patient was stable. Mood was significantly improved. She voiced no thoughts of harm to self or others. She tolerated her medications well. RECOMMENDATIONS AND FOLLOWUP: The patient is discharged to home. DISCHARGE MEDICATIONS INCLUDE: 1. Cymbalta 60 mg twice a day. 2. Neurontin 800 mg 3 times a day. 3. [place] carbonate 300 mg twice a day. 4. Latuda 80 mg a day. 5. Minipress 1 mg twice a day. 6. Desyrel 200 mg at bedtime. 7. Ultram 100 mg twice a day p.r.n. 8. Protonix 20 mg a day. 9. Lasix 20 mg a day. She has a followup appointment at [facility]. 03/16/2017 at 8 am and was referred back to Dr. Dominguez for primary care. MMODL / IJN: [id number] /
== END 2017-03-11 13:36 | disposition home or self-care (01) | DRG 885 ==
LOC: EC 17:15 → 3MHU 21:12
PROVIDERS: ADMIT Psychiatry & Neurology Psychiatry; ATTEND Psychiatry & Neurology Psychiatry
DX: F33.9 Major depressive disorder, recurrent, unspecified (principal); R45.851 Suicidal ideations; E66.01 Morbid (severe) obesity due to excess calories; Z68.44 Body mass index [BMI] 60.0-69.9, adult; G62.9 Polyneuropathy, unspecified; F41.9 Anxiety disorder, unspecified; G89.29 Other chronic pain; M54.5 Low back pain; K21.9 Gastro-esophageal reflux disease without esophagitis; M79.7 Fibromyalgia; I10 Essential (primary) hypertension; F17.200 Nicotine dependence, unspecified, uncomplicated; F14.90 Cocaine use, unspecified, uncomplicated; Z80.0 Family history of malignant neoplasm of digestive organs; Z79.899 Other long term (current) drug therapy; Z81.8 Family history of other mental and behavioral disorders; Z91.5 Personal history of self-harm; Z82.49 Family history of ischemic heart disease and other diseases of the circulatory system
CPT/HCPCS: 80053; 80061; 80178; 80306; 81025; 82075; 83036; 84443; 85025; 99285

== ENCOUNTER → 2017-08-07 | Outpatient (CLI) | payer OTHER ==
[2017-08-07 17:23] LABS: HCT 46.2 % (34.0-46.0); HGB 15.5 gm/dL (11.4-16.0); MCH 33.1 pg (25.0-35.0); MCHC 33.5 g/dL (31.0-37.0); MCV 98.8 fL (80.0-100.0); Mean Platelet Volume 7.4; Platelet Count 202 k/uL (150-450); RBC 4.68 m/uL (3.80-5.40); RDW 14.7 % (11.5-15.5); WBC 8.5 k/uL (3.8-10.6)
[2017-08-07 17:34] LABS: ALT 42 U/L (9-52); AST 22 U/L (14-36); Albumin 3.4 g/dL (3.5-5.0); Alkaline Phosphatase 49 U/L (38-126); Anion Gap 7 mmol/L; Blood Urea Nitrogen 11 mg/dL (7-17); Calcium 9.2 mg/dL (8.4-10.2); Carbon Dioxide 29 mmol/L (22-30); Chloride 102 mmol/L (98-107); Glucose 92 mg/dL (74-99); Potassium 4.5 mmol/L (3.5-5.1); Sodium 138 mmol/L (137-145); Total Bilirubin 0.3 mg/dL (0.2-1.3); Total Protein 5.6 g/dL (6.3-8.2)
== END | disposition home or self-care (01) ==
LOC: LABMAIN 15:02
PROVIDERS: ATTEND Internal Medicine
DX: I11.9 Hypertensive heart disease without heart failure (principal)
CPT/HCPCS: 36415; 80053; 85027

== ENCOUNTER 2017-09-02 17:12 | Emergency (ER) | payer OTHER ==
[2017-09-02 18:13] VITALS: RESP 18; TEMP 98.2
[2017-09-02] MEDS ORDERED: ASPIRIN 81 MG PO STA (18:27)
--- NOTE | 2017-09-02 18:49 | ED ---
Chest Pain HPI - General Chief Complaint: Chest Pain Stated Complaint: chest pains Time Seen by Provider: 09/02/17 18:15 Source: patient, RN notes reviewed Mode of arrival: wheelchair Limitations: no limitations - History of Present Illness Initial Comments: 41-year-old female presents emergency Department chief complaint of left-sided chest discomfort. Patient states that she was vacuuming had sudden onset of nausea and developed sharp steady pain the left side. Patient states is nonradiating. Pain is worse with movement and deep inspiration. She does have a history of asthma as a daily smoker. Has no history of cardiac disease including hypertension hyperlipidemia and diabetes no family history other than her grandfather around age 70. Patient states that symptoms are slightly subsiding at this time. Patient denies any headache or dizziness denies any nausea vomiting or diarrhea. - Related Data Home Medications Medication Instructions Recorded Confirmed Omeprazole 20 mg PO DAILY 01/19/17 09/02/17 Furosemide [Lasix] 20 mg PO DAILY 03/08/17 09/02/17 Spironolactone [Aldactone] 25 mg PO BID 03/08/17 09/02/17 traMADol HCL [Ultram] 50 mg PO Q6H PRN 03/08/17 09/02/17 [id number] 1 each PO Q6HR PRN 09/02/17 09/02/17 [Excedrin] Diclofenac Sodium [Voltaren] 75 mg PO BID 09/02/17 09/02/17 Kratom 1 tab PO DAILY PRN 09/02/17 Ranitidine HCl 150 mg PO HS 09/02/17 09/02/17 Topiramate [Topamax] 50 mg PO BID 09/02/17 09/02/17 hydrOXYzine PAMOATE [Vistaril] 25 mg PO BID PRN 09/02/17 09/02/17 Previous Rx's Medication Instructions Recorded DULoxetine HCL [Cymbalta] 60 mg PO BID #60 capsule. 03/11/17 Gabapentin [Neurontin] 800 mg PO TID cap 03/11/17 Prazosin [Minipress] 1 mg PO BID #60 cap 03/11/17 Allergies Allergy/AdvReac Type Severity Reaction Status Date / Time lithium Allergy Vomiting Verified 09/02/17 19:12 pregabalin [From Lyrica] Allergy Vomiting Verified 09/02/17 19:12 topiramate [From Topamax] Allergy Abdominal Verified 09/02/17 19:12 Pain latex AdvReac Itching Verified 09/02/17 19:12 Review of Systems ROS Statement: Those systems with pertinent positive or pertinent negative responses have been documented in the HPI. ROS Other: All systems not noted in ROS Statement are negative. EKG Findings - EKG Comments: EKG Findings:: EKG performed at 17:32 seconds rhythm. PVC, rate 99 PA 172 QRS 106 QT/QTC 364/467 Past Medical History Past Medical History: Asthma, GERD/Reflux, Musculoskeletal Disorder Additional Past Medical History / Comment(s): Neuropathy, Asthma, Torn R Rotator cuff, bulging discs, bilat. knee joints need replacement History of Any Multi-Drug Resistant Organisms: None Reported Past Surgical History: Hysterectomy, Tubal Ligation Additional Past Surgical History / Comment(s): Right knee surg x3; Partial hysterectomy 2009/ovaries intact, Colonoscopy 2013 Past Anesthesia/Blood Transfusion Reactions: No Reported Reaction Past Psychological History: Anxiety, Bipolar, Depression Smoking Status: Current every day smoker Past Alcohol Use History: Occasional Past Drug Use History: None Reported - Past Family History Mother Family Medical History: Cancer, Hypertension Additional Family Medical History / Comment(s): neuropathy; Mother had Colon Cancer Father Family Medical History: No Reported History General Exam Limitations: no limitations General appearance: alert, in no apparent distress Head exam: Present: atraumatic, normocephalic, normal inspection Neck exam: Present: normal inspection, full ROM. Absent: tenderness, meningismus, lymphadenopathy Respiratory exam: Present: normal lung sounds bilaterally, chest wall tenderness. Absent: respiratory distress, wheezes, rales, rhonchi, stridor Cardiovascular Exam: Present: regular rate, normal rhythm, normal heart sounds. Absent: systolic murmur, diastolic murmur, rubs, gallop, clicks GI/Abdominal exam: Present: soft, normal bowel sounds. Absent: distended, tenderness, guarding, rebound, rigid Back exam: Absent: CVA tenderness (R), CVA tenderness (L) Skin exam: Present: warm, dry, intact, normal color. Absent: rash Course Vital Signs 09/02/17 09/02/17 09/02/17 18:08 19:16 20:19 Temperature 98.2 F Pulse Rate 96 94 80 Respiratory 18 18 Rate Blood Pressure 115/84 152/87 137/62 O2 Sat by Pulse 99 97 Oximetry Chest Pain MDM - MDM This is a 41-year-old female presented for chest discomfort. Patient had EKG, lab work and chest x-ray within normal limits. Patient was given Toradol and states that try to see helped her pain. Pain is reproducible. This is felt to be muscle skeletal nature and not cardiac in nature. Patient agrees to follow up with Dr. Dominguez tomorrow and return for any worsening symptoms. Disposition Clinical Impression: Chest wall pain Disposition: HOME SELF-CARE Condition: Stable Instructions: Chest Wall Pain (ED) Additional Instructions: Please return to the Emergency Department if symptoms worsen or any other concerns. Is patient prescribed a controlled substance at d/c from ED?: No Referrals: Gokul Dominguez MD [Primary Care Provider] - 1-2 days Time of Disposition: 20:58
[2017-09-02 19:53] LABS: Basophils # (A) 0.1 k/uL (0-0.2); Basophils % (A) 1 %; Eosinophils # (A) 0.2 k/uL (0-0.7); Eosinophils % (A) 2 %; HCT 49.1 % (34.0-46.0); HGB 16.2 gm/dL (11.4-16.0); Lymphocytes # (A) 2.4 k/uL (1.0-4.8); Lymphocytes % (A) 20 %; MCH 31.5 pg (25.0-35.0); MCV 95.6 fL (80.0-100.0); Mean Platelet Volume 7.2; Monocytes # (A) 0.8 k/uL (0-1.0); Monocytes % (A) 7 %; Neutrophils # (A) 8.4 k/uL (1.3-7.7); Neutrophils % (A) 69 %; Platelet Count 224 k/uL (150-450); RBC 5.14 m/uL (3.80-5.40); RDW 14.2 % (11.5-15.5); WBC 12.2 k/uL (3.8-10.6)
--- NOTE | 2017-09-02 19:59 | XR ---
EXAMINATION TYPE: XR chest 2V DATE OF EXAM: 09/02/2017 COMPARISON: 06/22/2016 HISTORY: Chest pain TECHNIQUE: Frontal and lateral views of the chest are obtained. FINDINGS: Heart and mediastinum are normal. Lungs are clear. Diaphragm is normal. There are chest le ads. Bony thorax is intact. IMPRESSION: Normal chest. No change.
[2017-09-02 20:06] LABS: D-Dimer 0.35 mg/L FEU (<0.60); Partial Thromboplastin Time 23.1 sec (22.0-30.0); Prothrombin Time 10.2 sec (9.0-12.0)
[2017-09-02 20:09] LABS: ALT 38 U/L (9-52); AST 25 U/L (14-36); Alkaline Phosphatase 69 U/L (38-126); Anion Gap 8 mmol/L; Blood Urea Nitrogen 13 mg/dL (7-17); Calcium 9.6 mg/dL (8.4-10.2); Carbon Dioxide 27 mmol/L (22-30); Chloride 104 mmol/L (98-107); Glucose 102 mg/dL (74-99); Magnesium 1.8 mg/dL (1.6-2.3); Potassium 3.8 mmol/L (3.5-5.1); Sodium 139 mmol/L (137-145); Total Bilirubin 0.3 mg/dL (0.2-1.3); Total Protein 6.4 g/dL (6.3-8.2)
[2017-09-02 20:18] LABS: Creatine Kinase 70 U/L (30-135)
[2017-09-02] MEDS ORDERED: KETOROLAC 30 MG/ML 1 ML VIAL IVP STA (20:22)
[2017-09-02 20:25] VITALS: BP 137/62
[2017-09-02 20:31] LABS: Creatine Kinase MB 0.9 ng/mL (0.0-2.4); Troponin I <0.012 ng/mL (0.000-0.034)
[2017-09-02 21:08] VITALS: PULSE 85
== END 2017-09-02 21:08 | disposition home or self-care (01) ==
LOC: EC 17:12
DX: R07.89 Other chest pain (principal); R11.0 Nausea; K21.9 Gastro-esophageal reflux disease without esophagitis; F17.200 Nicotine dependence, unspecified, uncomplicated; Z79.1 Long term (current) use of non-steroidal anti-inflammatories (NSAID); Z79.899 Other long term (current) drug therapy; Z88.8 Allergy status to other drugs, medicaments and biological substances; Z91.040 Latex allergy status; Z82.49 Family history of ischemic heart disease and other diseases of the circulatory system
CPT/HCPCS: 36415; 71046; 80053; 82550; 82553; 83735; 83880; 84484; 85025; 85379; 85610; 85730; 93005; 96374; 99285

== ENCOUNTER 2017-10-24 20:44 | Inpatient (IN) | payer OTHER ==
[2017-10-24] MEDS ORDERED: MORPHINE SULFATE 4 MG/ML SYRINGE IVP STA (21:26)
[2017-10-24] MEDS ORDERED: SODIUM CHLORIDE 0.9% 1,000 ML IV ONE (21:27)
--- NOTE | 2017-10-24 21:33 | ED ---
General Adult HPI - General Chief complaint: Recheck/Abnormal Lab/Rx Stated complaint: cellulitis rt leg Time Seen by Provider: 10/24/17 20:58 Source: patient Mode of arrival: ambulatory Limitations: no limitations - History of Present Illness Initial comments: Patient is a 41-year-old female presenting for lower right leg redness. The patient states that she was discharged this morning after being admitted here in the hospital from Wednesday through today for cellulitis. When she was discharged, there was minimal redness but she went home and took a nap and shortly thereafter she woke up to the right leg being significantly more red with redness streaking up his the inner right thigh. She admits to subjective fevers and chills as well and states that she was given a prescription for Keflex. - Related Data Home Medications Medication Instructions Recorded Confirmed Furosemide [Lasix] 20 mg PO DAILY 03/08/17 10/20/17 Spironolactone [Aldactone] 25 mg PO BID 03/08/17 10/20/17 traMADol HCL [Ultram] 50 mg PO Q6H PRN 03/08/17 10/20/17 [id number] 1 tab PO Q6HR PRN 09/02/17 10/20/17 [Excedrin] hydrOXYzine PAMOATE [Vistaril] 25 mg PO BID PRN 09/02/17 10/20/17 Albuterol Inhaler [Ventolin Hfa 1 - 2 puff INHALATION RT-Q6H PRN 10/20/17 Inhaler] Ibuprofen [Motrin] 800 mg PO TID PRN 10/20/17 10/20/17 Previous Rx's Medication Instructions Recorded DULoxetine HCL [Cymbalta] 60 mg PO BID #60 capsule. 03/11/17 Gabapentin [Neurontin] 800 mg PO TID cap 03/11/17 Cephalexin [Keflex] 500 mg PO Q6HR #40 cap 10/24/17 Allergies Allergy/AdvReac Type Severity Reaction Status Date / Time lithium Allergy Vomiting Verified 10/24/17 20:53 pregabalin [From Lyrica] Allergy Vomiting Verified 10/24/17 20:53 topiramate [From Topamax] Allergy Abdominal Verified 10/24/17 20:53 Pain latex AdvReac Itching Verified 10/24/17 20:53 Review of Systems ROS Statement: Those systems with pertinent positive or pertinent negative responses have been documented in the HPI. Constitutional: Negative for chills, fatigue and fever. HENT: Negative for congestion. Respiratory: Negative for chest tightness, shortness of breath and wheezing. Negative for cough Cardiovascular: Negative for chest pain and palpitations. Gastrointestinal: Negative for abdominal pain. Negative for abdominal distention , diarrhea, nausea and vomiting. Genitourinary: Negative for dysuria. Musculoskeletal: Negative for back pain, neck pain and neck stiffness. Positive for right leg pain Skin: Positive for color change. Neurological: Negative for dizziness, speech difficulty, weakness and light- headedness. Psychiatric/Behavioral: Negative for agitation and confusion. Negative for anxiety ROS Other: All systems not noted in ROS Statement are negative. Past Medical History Past Medical History: Asthma, GERD/Reflux, Musculoskeletal Disorder Additional Past Medical History / Comment(s): Neuropathy, Asthma, Torn R Rotator cuff, bulging discs, bilat. knee joints need replacement, History of Any Multi-Drug Resistant Organisms: None Reported Past Surgical History: Hysterectomy, Tubal Ligation Additional Past Surgical History / Comment(s): Right knee surg x3; Partial hysterectomy 2010/ovaries intact, Colonoscopy 2013, Past Anesthesia/Blood Transfusion Reactions: No Reported Reaction Past Psychological History: Anxiety, Bipolar, Depression Smoking Status: Current every day smoker Past Alcohol Use History: Occasional Past Drug Use History: None Reported - Past Family History Mother Family Medical History: Cancer, Hypertension Additional Family Medical History / Comment(s): neuropathy; Mother had Colon Cancer Father Family Medical History: No Reported History General Exam - General Exam Comments Initial Comments: Constitutional: Pt is oriented to person, place, and time. Pt appears well- developed and well-nourished. No distress. HENT: Head: Normocephalic and atraumatic. Eyes: EOM are normal. Neck: Normal range of motion. Neck supple. Cardiovascular: Normal rate, regular rhythm, S1 normal, S2 normal and normal heart sounds. Exam reveals no gallop and no friction rub. No murmur heard. Pulmonary/Chest: Effort normal and breath sounds normal. No tachypnea and no bradypnea. No respiratory distress. No wheezes or rales noted. Abdominal: Soft. Bowel sounds are normal. Pt exhibits no shifting dullness, no distension, no pulsatile liver, no fluid wave, no abdominal bruit and no ascites. There is no tenderness. There is no rigidity, no rebound, no guarding, no tenderness at McBurney's point and negative Juan's sign. Musculoskeletal: Normal range of motion. Neurological: Pt is alert and oriented to person, place, and time. No cranial nerve deficit. Skin: Skin is warm and dry. No rash noted. Pt is not diaphoretic. No pallor. There is erythema of the lower right leg with circumferential erythema streaking up the medial right thigh. There is no significant effusion or edema of the right leg compared to left. Psychiatric: Pt has a normal mood and affect. Pt behavior is normal. Thought content normal. Limitations: no limitations Course Vital Signs 10/24/17 20:50 Temperature 98.5 F Pulse Rate 85 Respiratory 18 Rate Blood Pressure 147/85 O2 Sat by Pulse 97 Oximetry Medical Decision Making - Medical Decision Making Laboratory studies showed that there is no significant leukocytosis and lactic acid was not elevated. However, because of the extent of the erythema, it was felt that the patient should be brought into the hospital for continued antibiotics. Upon chart review, the patient was on Kefzol and clindamycin and this will be restarted. Explained all labs and diagnostic test results and that we will admit patient to hospital. Pt is agreeable to plan and case has been discussed with Dr. Dominguez and they agree to accept the pt.. - Lab Data Result diagrams: 10/24/17 22:16 10/24/17 22:16 Lab Results 10/24/17 10/24/17 10/24/17 Range/Units 22:16 22:16 22:16 WBC 6.1 (3.8-10.6) k/uL RBC 4.89 (3.80-5.40) m/uL Hgb 14.6 (11.4-16.0) gm/dL Hct 47.7 H (34.0-46.0) % MCV 97.5 (80.0-100.0) fL MCH 29.8 (25.0-35.0) pg MCHC 30.6 L (31.0-37.0) g/dL RDW 13.7 (11.5-15.5) % Plt Count 187 (150-450) k/uL Neutrophils % 60 % Lymphocytes % 26 % Monocytes % 8 % Eosinophils % 3 % Basophils % 0 % Neutrophils # 3.7 (1.3-7.7) k/uL Lymphocytes # 1.6 (1.0-4.8) k/uL Monocytes # 0.5 (0-1.0) k/uL Eosinophils # 0.2 (0-0.7) k/uL Basophils # 0.0 (0-0.2) k/uL Hypochromasia Slight Sodium 139 (137-145) mmol/L Potassium 4.4 (3.5-5.1) mmol/L Chloride 100 (98-107) mmol/L Carbon Dioxide 30 (22-30) mmol/L Anion Gap 9 mmol/L BUN 16 (7-17) mg/dL Creatinine 0.78 (0.52-1.04) mg/dL Est GFR (CKD-EPI)AfAm >90 (>60 ml/min/1.73 sqM) Est GFR (CKD-EPI)NonAf >90 (>60 ml/min/1.73 sqM) Glucose 108 H (74-99) mg/dL Plasma Lactic Acid Alessio 1.2 (0.7-2.0) mmol/L Calcium 9.4 (8.4-10.2) mg/dL Disposition Clinical Impression: Cellulitis Disposition: [facility] Condition: Good Referrals: Gokul Dominguez MD [Primary Care Provider] - 1-2 days Decision to Admit Reason: Admit from EC Decision Date: 10/24/17 Decision Time: 23:29
[2017-10-24 22:35] LABS: Basophils % (A) 0 %; Eosinophils # (A) 0.2 k/uL (0-0.7); Eosinophils % (A) 3 %; HCT 47.7 % (34.0-46.0); HGB 14.6 gm/dL (11.4-16.0); Hypochromasia Slight; Lymphocytes # (A) 1.6 k/uL (1.0-4.8); Lymphocytes % (A) 26 %; MCH 29.8 pg (25.0-35.0); MCHC 30.6 g/dL (31.0-37.0); MCV 97.5 fL (80.0-100.0); Mean Platelet Volume 7.7; Monocytes # (A) 0.5 k/uL (0-1.0); Monocytes % (A) 8 %; Neutrophils # (A) 3.7 k/uL (1.3-7.7); Neutrophils % (A) 60 %; Platelet Count 187 k/uL (150-450); RBC 4.89 m/uL (3.80-5.40); RDW 13.7 % (11.5-15.5); WBC 6.1 k/uL (3.8-10.6)
[2017-10-24 22:48] LABS: Anion Gap 9 mmol/L; Calcium 9.4 mg/dL (8.4-10.2); Carbon Dioxide 30 mmol/L (22-30); Chloride 100 mmol/L (98-107); Glucose 108 mg/dL (74-99); Sodium 139 mmol/L (137-145)
[2017-10-24 22:52] LABS: Blood Urea Nitrogen 16 mg/dL (7-17); Potassium 4.4 mmol/L (3.5-5.1)
[2017-10-24] MEDS ORDERED: HYDROmorphone 0.5 MG/0.5 ML SYRINGE IVP STA (23:27)
[2017-10-24] MEDS ORDERED: NALOXONE 0.4 MG/ML 1 ML VIAL IV PRN (23:30)
[2017-10-24] MEDS ORDERED: ceFAZolin 1,000 MG in DEXTROSE/WATER 1 50ML.BAG IVPB ONE (23:33)
[2017-10-25] MEDS: CLINDAMYCIN 900 MG in DEXTROSE 5% IN WATER 50 ML IV SCH ×4 (00:38→11:17)
[2017-10-25] MEDS ORDERED: CALAMINE/ZINC OXIDE LOTION 177 ML BTL TOPICAL PRN (00:55)
[2017-10-25] MEDS ORDERED: PRAZOSIN 1 MG CAP PO PRN (01:00)
[2017-10-25] MEDS ORDERED: NICOTINE 21MG/24HR PATCH TRANSDERM SCH (01:00)
[2017-10-25] MEDS: traZODone HCL 100 MG TAB PO SCH ×2 (01:03→21:18)
[2017-10-25] MEDS: HYDROmorphone 0.5 MG/0.5 ML SYRINGE IVP PRN ×2 (02:45→06:45)
[2017-10-25] MEDS: NICOTINE 21MG/24HR PATCH TRANSDERM SCH (08:11)
[2017-10-25] MEDS: HYDROmorphone 1 MG/ML 1 ML SYRINGE IVP PRN ×4 (12:25→21:36)
[2017-10-25] MEDS ORDERED: hydrOXYzine PAMOATE 25 MG CAP PO PRN (13:13)
[2017-10-25] MEDS ORDERED: CYCLOBENZAPRINE 5 MG TAB PO PRN (13:13)
[2017-10-25] MEDS ORDERED: ALBUTEROL NEBULIZED 2.5 MG/3 ML INHALATION PRN (13:13)
[2017-10-25] MEDS ORDERED: IBUPROFEN 800 MG TAB PO PRN (13:13)
[2017-10-25] MEDS ORDERED: ASPIRIN-ACET-CAFF 250-250-65MG 1 EACH TAB PO PRN (13:13)
[2017-10-25] MEDS: SPIRONOLACTONE 25 MG TAB PO SCH ×2 (13:44→21:18)
[2017-10-25] MEDS: FUROSEMIDE 20 MG TAB PO SCH (13:44)
[2017-10-25] MEDS: PANTOPRAZOLE 40 MG TABLET PO SCH (13:44)
[2017-10-25] MEDS: DULoxetine HCL 60 MG CAPSULE.DR PO SCH ×2 (13:44→21:18)
[2017-10-25] MEDS: GABAPENTIN 400 MG CAP PO SCH ×2 (13:45→21:18)
[2017-10-25] MEDS ORDERED: VANCOMYCIN IV PER PHARMACY 1 EACH MISC MISCELLANE PRN (14:03)
[2017-10-25] MEDS ORDERED: VANCOMYCIN 2,250 MG in SODIUM CHLORIDE 0.9% 500 ML IVPB STA (14:09)
--- NOTE | 2017-10-25 18:20 | HP ---
HISTORY AND PHYSICAL DATE OF ADMISSION: 10/24/2017 DATE OF SERVICE: 10/25/2017 CHIEF COMPLAINT: Cellulitis of the lower extremities bilaterally. HISTORY OF PRESENT ILLNESS: This is a 41-year-old white female who was in [facility] for about 4 days for treatment of cellulitis involving both lower extremities. At that time, patient was seen by Dr. York in consultation and he felt that patient had streptococcal infection off the skin of both lower extremities and patient was placed on clindamycin and Kefzol IV and apparently there was significant improvement and patient was discharged home on 10/2017 in the morning. Apparently, patient was sent home with antibiotic of Keflex as directed by Dr. York. The patient in the evening, patient found that the redness and tenderness of the skin is spreading and expanding and she came back to the emergency room and she was admitted to the hospital for further evaluation and treatment. PAST MEDICAL HISTORY: Reveals that she has a history of extreme morbid obesity, bipolar disorder, and fibromyalgia and chronic obstructive pulmonary disease. MEDICATIONS INCLUDE: 1. Lasix 20 mg p.o. daily. 2. Spironolactone 25 mg p.o. b.i.d. 3. Ultram 50 mg p.o. q.6 hours p.r.n. 4. Aspirin. 5. Excedrin 1 tab q.6 hours p.r.n. 6. Vistaril 25 mg p.o. b.i.d. p.r.n. 7. Cymbalta 60 mg p.o. b.i.d. 8. Gabapentin 800 mg p.o. t.i.d. 9. Keflex 500 mg p.o. q.6 hours. ALLERGIES: She has no known drug allergies. She is also using albuterol and p.r.n. and ibuprofen 800 mg p.o. t.i.d. p.r.n. SOCIAL HISTORY: Patient does not smoke and drinks alcohol occasionally. FAMILY HISTORY: Family history is noncontributory, positive for heart disease and mental disorder. REVIEW OF SYSTEMS: Patient denies any headache. Appetite has been good. Bowels regular. She has no chest pain. She has no cough. She has no abdominal pain. She has no polyuria or dysuria. She has pain and tenderness of the lower extremities due to cellulitis. PHYSICAL EXAMINATION: Reveals a 61-year-old white female extreme morbid obesity and she is alert and oriented. She is still complaining of the pain in the lower extremities. There is no jaundice. There is no generalized lymphadenopathy. No petechia or bruises. Pulse is 82 per minute, regular. Blood pressure 147/85, temperature 98.5, pulse ox 97 percent. Examination of the ENT negative. Neck is supple. There is no jugular venous distention. There is no goiter and there is no carotid bruit. Heart is in sinus rhythm. LUNGS: Clear to auscultation and percussion. ABDOMEN: Soft and nontender. Markedly obese. No mass palpable. Examination of the lower extremities reveals bilateral erythematous changes in both extremities with some swelling and tenderness. Neurologic examination does not reveal any new localizing signs. IMPRESSION: 1. Cellulitis bilateral lower extremities. 2. History of chronic obstructive pulmonary disease. 3. Fibromyalgia. 4. Bipolar disorder. 5. Morbid obesity. PLAN: The patient will be admitted to the hospital, started back on IV clindamycin and IV Kefzol and will consult Dr. York from Infectious Disease. Prognosis is guarded. The diagnosis, prognosis and therapeutic plans were discussed in detail with the patient today. MMODL / IJN: [id number] /
--- NOTE | 2017-10-25 22:47 | CONS ---
CONSULTATION DATE OF SERVICE: 10/25/2017. REASON FOR CONSULTATION: Left lower extremity cellulitis. HISTORY OF PRESENT ILLNESS: The patient is a 41-year-old female who was recently admitted to this facility. The patient was treated for bilateral lower extremity cellulitis with concern for likely a streptococcal cellulitis. The patient was treated with IV cefazolin 2 g q.8h along with clindamycin 900 q.8 hours. The patient did have overall improvement. Blood cultures were negative and the patient was discharged home yesterday morning with oral Keflex 500 mg p.o. q.6 hours. The patient said she went home and medication. However, she still had more swelling and redness to the right leg, especially. The pain described to more of a dull aching at times sharp, 4-5 out of 10 and no radiation with more redness. The patient presented back to the [facility] ER. The patient was evaluated by the ER physician. No fevers were recorded or any elevated white count. She has been admitted to the hospital with cellulitis of the right leg. She was started on clindamycin. Infectious Disease was consulted for further recommendations regarding antibiotic therapy. The patient did mention that last night Calmoseptine lotion was applied to the leg. to be helping anything. The patient denies having any chest pain or shortness of breath or cough. No abdominal pain. No diarrhea. REVIEW OF SYSTEMS: CONSTITUTIONAL: Positive for weakness but no high-grade fever. Eyes: No complaint. ENT no complaint. Respiratory no shortness of breath. No cough. Cardiovascular no complaint. Genitourinary no complaint. Gastrointestinal: No complaint. Musculoskeletal: No complaint. INTEGUMENTARY: As per HPI. Psychological: No complaint. Endocrine: No complaint. Neurologic: No complaint. PAST MEDICAL HISTORY: Asthma and gastroesophageal reflux disease, neuropathy, rotator cuff torn, and lower extremity cellulitis. PAST SURGICAL HISTORY: Hysterectomy, tubal ligation, right knee surgery x3, colonoscopy. Past psychological history positive for anxiety and bipolar depression. SOCIAL HISTORY: Current everyday smoker. Smokes about a pack a day. Occasionally drinks. No drug use. FAMILY HISTORY: Mother with history of colon cancer and hypertension. ALLERGIES: TO LITHIUM, NEURONTIN, . MEDICATION: Currently include the patient is on Excedrin, [place], Ventolin, Calamine lotion, Flexeril, Cymbalta, Lasix, Neurontin, Dilaudid, Morphine, Narcan, nicotine patch, Protonix, Minipress, Aldactone and clindamycin. EXAMINATION: Blood pressure 109/75 with a pulse of 75, temperature 97.7, she is 95% on room air. General description is a middle-aged female lying in bed in no distress. No tachypnea or accessory muscles of respiration use. HEENT: No pallor or scleral icterus. Oral mucosa is moist with no pharyngeal erythema or thrush. Neck: Trachea central. No thyromegaly. LUNGS: Unlabored breathing. Clear to auscultation anteriorly. No wheeze or crackles. Heart S1, S2. Regular rate and rhythm. Abdomen soft, no tenderness. No guarding or rigidity. Extremities: Right leg with swelling, minimal redness. No skin breakdown. No blister formation. Left leg redness has resolved. Neurological: The patient is awake, alert, oriented times three. Mood and affect normal. LABS: Hemoglobin is 14.8, white count 6.1. The BUN is 15, creatinine 0.78. DIAGNOSTIC IMPRESSION AND PLAN: Patient admitted to the hospital with right lower extremity cellulitis. The patient was recently at this facility and was treated with IV cefazolin, clindamycin, and seemed to have shown overall clinical improvement, returning within 24 hours with slight worsening of the right leg with concern for possible streptococcal cellulitis. PLAN: 1. Discontinue clindamycin. 2. Start the patient on vancomycin pharmacy to dose target of 15 while watching her kidney function closely. 3. Finn wrap from just below the knee to be changed daily. 4. We will follow up on clinical condition and culture to further adjust medication if needed. Thank you for this consultation. We will follow this patient along with you. MMODL / IJN: [id number] /
[2017-10-26] MEDS: HYDROmorphone 1 MG/ML 1 ML SYRINGE IVP PRN ×5 (01:37→22:55)
[2017-10-26] MEDS: VANCOMYCIN 2,250 MG in SODIUM CHLORIDE 0.9% 500 ML IVPB SCH ×2 (05:22→17:14)
[2017-10-26] MEDS: NICOTINE 21MG/24HR PATCH TRANSDERM SCH (08:38)
[2017-10-26] MEDS: PANTOPRAZOLE 40 MG TABLET PO SCH (08:38)
[2017-10-26] MEDS: DULoxetine HCL 60 MG CAPSULE.DR PO SCH ×2 (08:38→21:07)
[2017-10-26] MEDS: SPIRONOLACTONE 25 MG TAB PO SCH ×2 (08:38→21:08)
[2017-10-26] MEDS: FUROSEMIDE 20 MG TAB PO SCH (08:39)
[2017-10-26] MEDS: GABAPENTIN 400 MG CAP PO SCH ×3 (08:39→21:08)
--- NOTE | 2017-10-26 11:47 | US ---
EXAMINATION TYPE: US venous doppler duplex LE RT DATE OF EXAM: 10/26/2017 11:40 AM COMPARISON: US 2018 CLINICAL HISTORY: r/o absess or thrombophlebitis. Right leg pain and swelling x 1 week, exam done por table. SIDE PERFORMED: Right TECHNIQUE: The lower extremity deep venous system is examined utilizing real time linear array sonog jaun with graded compression, doppler sonography and color-flow sonography. VESSELS IMAGED: External Iliac Vein (EIV) Common Femoral Vein Deep Femoral Vein Greater Saphenous Vein * Femoral Vein Popliteal Vein Small Saphenous Vein * Proximal Calf Veins (* superficial vessels) Difficult and limited study due to patient body habitus Right Leg: Appears negative for DVT, scanned medial calf area of concern: appears wnl IMPRESSION: 1. No diagnostic evidence of DVT as visualized. 2. No diagnostic evidence of abscess.
[2017-10-26] MEDS: HYDROcodone/APAP 5-325MG 1 EACH TAB PO PRN ×2 (15:14→21:08)
--- NOTE | 2017-10-26 15:48 | PN ---
PROGRESS NOTE DATE OF SERVICE: 10/26/2017 This is a 41-year-old white female who was recently in [facility] for treatment of extensive cellulitis involving both lower extremities. The patient was seen by Dr. York in consultation at that time and she was treated with clindamycin and Kefzol IV and there was significant improvement in the pain and the patient was ambulatory and so she was discharged home on oral antibiotics. She was discharged on 10/24/2017 and apparently after going home by that evening, she felt that the cellulitis was progressing and spreading rapidly, so she came back to the ER. She was evaluated in the ER and readmitted to the hospital for further evaluation and treatment. The patient was placed back on her previous antibiotics and other home medications and she was again seen by Dr. York and Dr. York apparently switched the antibiotics to vancomycin and the patient's pain being controlled with Pesotum and Dilaudid on a p.r.n. basis. She has been placed back on her previous home medications and she has no new complaints and she denies any chest pain or shortness of breath. She had ultrasound of the lower extremities and was negative for DVT. Overall prognosis is guarded. The diagnosis, prognosis and therapeutic plans were discussed in detail with the patient today. MMODL / IJN: [id number] /
[2017-10-26] MEDS: traZODone HCL 100 MG TAB PO SCH (21:08)
--- NOTE | 2017-10-26 23:14 | PN ---
PROGRESS NOTE DATE OF SERVICE: 10/26/2017. REASON FOR FOLLOWUP: Left leg cellulitis. INTERVAL HISTORY: The patient is currently afebrile. She is breathing comfortably. The patient had been complaining of nonspecific spot on her leg to be painful, recently was slightly red. Denies having any chest pain, shortness of breath or cough. No diarrhea. EXAMINATION: Blood pressure is 131/74, pulse of 80, temperature of 98.1. She is 94% on room air. General description is a middle aged female lying in bed in no distress. Respiratory system: Unlabored breathing, clear to auscultation anteriorly. Heart S1, S2 regular rate and rhythm. Right leg one specific area which seemed to be tender to touch. LABS: No new lab has been obtained. Blood culture has been negative. DIAGNOSTIC IMPRESSION AND PLAN: Patient with right leg cellulitis failing the Keflex for therapy. Currently on vancomycin with an area of increased pain for which an ultrasound was done was negative for any abscess. Advised ice packs to the area followed by an Finn wrap to keep the swelling down. Continue with vancomycin watching kidney function closely. Continue supportive care. MMODL / IJN: [id number] /
[2017-10-27] MEDS: HYDROmorphone 1 MG/ML 1 ML SYRINGE IVP PRN (06:29)
[2017-10-27] MEDS: VANCOMYCIN 2,250 MG in SODIUM CHLORIDE 0.9% 500 ML IVPB SCH ×2 (06:29→17:28)
[2017-10-27] MEDS: GABAPENTIN 400 MG CAP PO SCH ×3 (08:32→20:21)
[2017-10-27] MEDS: NICOTINE 21MG/24HR PATCH TRANSDERM SCH (08:32)
[2017-10-27] MEDS: DULoxetine HCL 60 MG CAPSULE.DR PO SCH ×2 (08:32→20:21)
[2017-10-27] MEDS: FUROSEMIDE 20 MG TAB PO SCH (08:33)
[2017-10-27] MEDS: PANTOPRAZOLE 40 MG TABLET PO SCH (08:33)
[2017-10-27] MEDS: SPIRONOLACTONE 25 MG TAB PO SCH ×2 (08:33→20:21)
[2017-10-27 09:11] LABS: Basophils # (A) 0.1 k/uL (0-0.2); Basophils % (A) 1 %; Eosinophils # (A) 0.2 k/uL (0-0.7); Eosinophils % (A) 3 %; HCT 49.4 % (34.0-46.0); Hypochromasia Slight; Lymphocytes % (A) 28 %; MCH 30.3 pg (25.0-35.0); MCHC 30.3 g/dL (31.0-37.0); Mean Platelet Volume 6.9; Monocytes # (A) 0.4 k/uL (0-1.0); Monocytes % (A) 6 %; Neutrophils # (A) 4.4 k/uL (1.3-7.7); Neutrophils % (A) 60 %; Platelet Count 232 k/uL (150-450); RBC 4.93 m/uL (3.80-5.40); RDW 13.8 % (11.5-15.5); WBC 7.3 k/uL (3.8-10.6)
[2017-10-27 09:29] LABS: Anion Gap 8 mmol/L; Blood Urea Nitrogen 12 mg/dL (7-17); Carbon Dioxide 31 mmol/L (22-30); Chloride 101 mmol/L (98-107); Glucose 124 mg/dL (74-99); Potassium 4.9 mmol/L (3.5-5.1); Sodium 140 mmol/L (137-145)
[2017-10-27] MEDS: HYDROcodone/APAP 5-325MG 1 EACH TAB PO PRN ×3 (12:19→22:00)
[2017-10-27] MEDS: HYDROmorphone 4 MG TABLET PO PRN (16:07)
--- NOTE | 2017-10-27 19:58 | PN ---
PROGRESS NOTE DATE OF SERVICE: 10/27/2017 This is a 41-year-old white female who has extreme morbid obesity and she was admitted to the hospital with cellulitis involving both lower extremities. She was seen by Dr. York in consultation and she was initially started on Kefzol and clindamycin and apparently she was not responding to these antibiotics and Dr. York has changed to vancomycin. Her cellulitis seems to be improving. Still she has extensive erythematous changes and also has severe pain. Pain being controlled with Dilaudid and Elim given on p.r.n. basis. Otherwise, her vital signs are stable. Heart is in sinus rhythm. Lungs are clear. There is no acute cardiorespiratory problems. The prognosis is guarded. The diagnosis, prognosis and therapeutic plans were discussed in detail with the patient today. Will continue current medications and antibiotics. Dr. York is also following the patient. MMODL / IJN: [id number] /
[2017-10-27] MEDS: traZODone HCL 100 MG TAB PO SCH (20:21)
--- NOTE | 2017-10-27 22:10 | PN ---
PROGRESS NOTE DATE OF SERVICE: 10/27/2017. REASON FOR FOLLOWUP: Right leg cellulitis. INTERVAL HISTORY: The patient is currently afebrile. She is breathing comfortably. Overall pain, swelling and redness to the right leg has improved compared to yesterday. Denies having any chest pain, shortness of breath or cough. No abdominal pain. No diarrhea. EXAMINATION: Blood pressure is 117/71 with a pulse of 73, temperature 98.5. She is 98% on room air. General description is a middle aged female lying in bed in no distress. Respiratory system: Unlabored breathing, clear to auscultation anteriorly. Heart S1, S2. Regular rate and rhythm. Abdomen soft, no tenderness. Right leg swelling and redness has improved. No induration, no drainage. LABS: Hemoglobin is 15, white count 7.3, BUN of 12, creatinine 0.70. DIAGNOSTIC IMPRESSION AND PLAN: Patient with acute right lower extremity cellulitis. Patient has shown clinical improvement with vancomycin. If the patient continues to improve, plan to finish therapy with oral doxycycline 100 b.i.d. for about a week with close outpatient followup. Prescription has been sent to the pharmacy. MMDOMIL / BENTONN: [id number] /
[2017-10-28] MEDS ORDERED: VANCOMYCIN TROUGH DUE 1 EACH MISC MISCELLANE ONE (05:00)
[2017-10-28 06:29] LABS: Anion Gap 8 mmol/L; Blood Urea Nitrogen 13 mg/dL (7-17); Calcium 9.2 mg/dL (8.4-10.2); Carbon Dioxide 27 mmol/L (22-30); Chloride 103 mmol/L (98-107); Glucose 105 mg/dL (74-99); Potassium 4.4 mmol/L (3.5-5.1); Sodium 138 mmol/L (137-145)
[2017-10-28] MEDS: VANCOMYCIN 2,250 MG in SODIUM CHLORIDE 0.9% 500 ML IVPB SCH (06:40)
[2017-10-28 07:46] VITALS: BP 122/71; PULSE 63; RESP 16; TEMP 97.3
[2017-10-28] MEDS: PANTOPRAZOLE 40 MG TABLET PO SCH (08:45)
[2017-10-28] MEDS: SPIRONOLACTONE 25 MG TAB PO SCH (08:45)
[2017-10-28] MEDS: DULoxetine HCL 60 MG CAPSULE.DR PO SCH (08:45)
[2017-10-28] MEDS: NICOTINE 21MG/24HR PATCH TRANSDERM SCH (08:45)
[2017-10-28] MEDS: FUROSEMIDE 20 MG TAB PO SCH (08:46)
[2017-10-28] MEDS: GABAPENTIN 400 MG CAP PO SCH (08:46)
[2017-10-28] MEDS: HYDROmorphone 4 MG TABLET PO PRN (08:48)
--- NOTE | 2017-10-28 15:20 | PN ---
PROGRESS NOTE DATE OF SERVICE: 10/28/2017 REASON FOR FOLLOWUP: Right leg cellulitis. INTERVAL HISTORY: The patient is currently afebrile. She is breathing comfortably. Denies having any chest pain, shortness of breath, cough, abdominal pain, or pain to the right leg. Overall, redness has resolved. PHYSICAL EXAMINATION: Blood pressure 122/71 with pulse of 53, temperature 97.3. She is 97% on room air. General description is a middle-aged female, lying in bed, in no distress. RESPIRATORY SYSTEM: Unlabored breathing, clear to auscultation anteriorly. HEART: S1, S2. Regular rate and rhythm. ABDOMEN: Soft, no tenderness. Right leg swelling and redness has improved. LABS: BUN of 13, creatinine 0.66. Blood culture has been negative. DIAGNOSTIC IMPRESSION AND PLAN: Patient with right lower extremity cellulitis. The patient responded well to the IV vancomycin, will switch her to oral doxycycline 100 b.i.d. for 10 days. Prescription has been sent to the pharmacy. She will follow up in the office in a week Continue supportive care. MMODL / IJN: [id number] /
== END 2017-10-28 14:50 | disposition home or self-care (01) | DRG 603 ==
LOC: EC 20:44 → 4MS4W 23:30
PROVIDERS: ADMIT Internal Medicine; ATTEND Internal Medicine
DX: L03.115 Cellulitis of right lower limb (principal); Z68.44 Body mass index [BMI] 60.0-69.9, adult; L03.116 Cellulitis of left lower limb; E66.01 Morbid (severe) obesity due to excess calories; G62.9 Polyneuropathy, unspecified; J44.9 Chronic obstructive pulmonary disease, unspecified; M79.7 Fibromyalgia; F31.9 Bipolar disorder, unspecified; F41.9 Anxiety disorder, unspecified; F32.9 Major depressive disorder, single episode, unspecified; F17.210 Nicotine dependence, cigarettes, uncomplicated; Z71.6 Tobacco abuse counseling; K21.9 Gastro-esophageal reflux disease without esophagitis; Z79.82 Long term (current) use of aspirin; Z79.899 Other long term (current) drug therapy; Z90.710 Acquired absence of both cervix and uterus; Z98.51 Tubal ligation status; Z91.040 Latex allergy status; Z88.8 Allergy status to other drugs, medicaments and biological substances; Z80.0 Family history of malignant neoplasm of digestive organs; Z82.49 Family history of ischemic heart disease and other diseases of the circulatory system; Z82.0 Family history of epilepsy and other diseases of the nervous system
CPT/HCPCS: 36415; 80048; 80202; 83605; 85025; 87040; 96361; 96374; 96375; 99284

== ENCOUNTER 2018-04-19 16:51 | Emergency (ER) | payer OTHER ==
[2018-04-19] MEDS ORDERED: ONDANSETRON ODT 8 MG TAB.RAPDIS PO STA (17:22)
[2018-04-19] MEDS ORDERED: HYDROmorphone 1 MG/ML 1 ML SYRINGE IVP STA (17:22)
[2018-04-19] MEDS ORDERED: SODIUM CHLORIDE 0.9% 1,000 ML IV STA (17:22)
--- NOTE | 2018-04-19 17:41 | ED ---
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 Onset 1 hour ago. Patient states it's mainly down her left flank and left side of her abdomen. Patient states that she's had no history of kidney stones. She does have a significant psychiatric history. Patient surgical history includes hysterectomy. She denies any diarrhea. She's had multiple pills of vomiting the past hour. - Related Data Home Medications Medication Instructions Recorded Confirmed Furosemide [Lasix] 20 mg PO DAILY 03/08/17 04/19/18 Spironolactone [Aldactone] 25 mg PO BID 03/08/17 04/19/18 traMADol HCL [Ultram] 100 mg PO BID 03/08/17 04/19/18 hydrOXYzine PAMOATE [Vistaril] 25 mg PO BID PRN 09/02/17 04/19/18 Albuterol Inhaler [Ventolin Hfa 1 - 2 puff INHALATION RT-Q6H PRN 10/20/17 04/19/18 Inhaler] Cyclobenzaprine [Flexeril] 5 mg PO BID PRN 10/25/17 04/19/18 Omeprazole [PriLOSEC] 20 mg PO DAILY 10/25/17 04/19/18 Prazosin [Minipress] 1 mg PO BID 10/25/17 04/19/18 Ibuprofen [Motrin] 600 mg PO Q8HR PRN 04/19/18 04/19/18 Previous Rx's Medication Instructions Recorded DULoxetine HCL [Cymbalta] 60 mg PO BID #60 capsule. 03/11/17 Gabapentin [Neurontin] 800 mg PO TID cap 03/11/17 Acetaminophen-Codeine 300-30mg 1 tab PO Q6H PRN 3 Days #12 tablet 04/19/18 [Tylenol w/codeine #3] Ketorolac [Toradol] 10 mg PO Q6HR #15 tab 04/19/18 Ondansetron Odt [Zofran Odt] 4 mg PO Q8HR PRN #15 tab 03/05/19 Tamsulosin [Flomax] 0.4 mg PO DAILY #10 cap 04/19/18 Allergies Allergy/AdvReac Type Severity Reaction Status Date / Time lithium Allergy Vomiting Verified 04/19/18 18:40 pregabalin [From Lyrica] Allergy Vomiting Verified 04/19/18 18:40 topiramate [From Topamax] Allergy Abdominal Verified 04/19/18 18:40 Pain latex AdvReac Itching Verified 04/19/18 18:40 Review of Systems ROS Statement: Those systems with pertinent positive or pertinent negative responses have been documented in the HPI. ROS Other: All systems not noted in ROS Statement are negative. Past Medical History Past Medical History: Asthma, GERD/Reflux, Musculoskeletal Disorder Additional Past Medical History / Comment(s): Neuropathy, Asthma, Torn R Rotator cuff, bulging discs, bilat. knee joints need replacement, History of Any Multi-Drug Resistant Organisms: None Reported Past Surgical History: Hysterectomy, Tubal Ligation Additional Past Surgical History / Comment(s): Right knee surg x3; Partial hysterectomy 2009/ovaries intact, Colonoscopy 2013, Past Anesthesia/Blood Transfusion Reactions: No Reported Reaction Past Psychological History: Anxiety, Bipolar, Depression Smoking Status: Current every day smoker Past Alcohol Use History: Occasional Past Drug Use History: Cocaine - Past Family History Mother Family Medical History: Cancer, Hypertension Additional Family Medical History / Comment(s): neuropathy; Mother had Colon Cancer Father Family Medical History: No Reported History General Exam - General Exam Comments Initial Comments: 42-year-old female. Yelling and screaming in pain. Morbidly obese. Limitations: no limitations General appearance: alert, in no apparent distress Head exam: Present: atraumatic, normocephalic, normal inspection Eye exam: Present: normal appearance, PERRL, EOMI. Absent: scleral icterus, conjunctival injection, periorbital swelling ENT exam: Present: normal exam, mucous membranes moist Neck exam: Present: normal inspection. Absent: tenderness, meningismus, lymphadenopathy Respiratory exam: Present: normal lung sounds bilaterally. Absent: respiratory distress, wheezes, rales, rhonchi, stridor Cardiovascular Exam: Present: regular rate, normal rhythm, normal heart sounds. Absent: systolic murmur, diastolic murmur, rubs, gallop, clicks GI/Abdominal exam: Present: soft, tenderness (Diffuse abdominal tenderness. Flank tenderness), normal bowel sounds. Absent: distended, guarding, rebound, rigid Extremities exam: Present: normal inspection, full ROM, normal capillary refill. Absent: tenderness, pedal edema, joint swelling, calf tenderness Back exam: Present: normal inspection Neurological exam: Present: alert, oriented X3, CN II-XII intact Psychiatric exam: Present: normal affect, normal mood Skin exam: Present: warm, dry, intact, normal color. Absent: rash Course Vital Signs 04/19/18 17:04 Temperature 97.6 F Pulse Rate 71 Respiratory 22 Rate Blood Pressure 184/113 O2 Sat by Pulse 96 Oximetry - Reevaluation(s) Reevaluation #1: 04/19/18 20:47 Delay and discharges due to radiology report be delayed. Computed tomography scan was completed at 7 PM. Radiology report is not read 8:47 PM. Medical Decision Making - Medical Decision Making 42-year-old female presents returns today with complaints of onset of severe left-sided flank and abdominal pain. She is given IV fluids and pain medication. Lab work was reviewed. Normal blood work. Urinalysis is positive for hematuria. Patient has a sinus infection. At this time patient's computed tomography scan does show the obstructive 3 mm stone. Discussed the Patient be discharged with pain medication nausea medicine. Discussed close follow-up appears. Neurology. All questions answered. - Lab Data Result diagrams: 04/19/18 17:54 04/19/18 17:54 Lab Results 04/19/18 04/19/18 04/19/18 Range/Units 17:54 17:54 17:54 WBC 9.0 (3.8-10.6) k/uL RBC 5.50 H (3.80-5.40) m/uL Hgb 16.6 H (11.4-16.0) gm/dL Hct 53.7 H (34.0-46.0) % MCV 97.6 (80.0-100.0) fL MCH 30.2 (25.0-35.0) pg MCHC 30.9 L (31.0-37.0) g/dL RDW 14.7 (11.5-15.5) % Plt Count 167 (150-450) k/uL Neutrophils % 73 % Lymphocytes % 18 % Monocytes % 5 % Eosinophils % 3 % Basophils % 1 % Neutrophils # 6.5 (1.3-7.7) k/uL Lymphocytes # 1.6 (1.0-4.8) k/uL Monocytes # 0.4 (0-1.0) k/uL Eosinophils # 0.2 (0-0.7) k/uL Basophils # 0.1 (0-0.2) k/uL Hypochromasia Slight APTT 21.8 L (22.0-30.0) sec Sodium 138 (137-145) mmol/L Potassium 4.7 (3.5-5.1) mmol/L Chloride 109 H (98-107) mmol/L Carbon Dioxide 22 (22-30) mmol/L Anion Gap 7 mmol/L BUN 10 (7-17) mg/dL Creatinine 0.86 (0.52-1.04) mg/dL Est GFR (CKD-EPI)AfAm >90 (>60 ml/min/1.73 sqM) Est GFR (CKD-EPI)NonAf 85 (>60 ml/min/1.73 sqM) Glucose 127 H (74-99) mg/dL Calcium 9.0 (8.4-10.2) mg/dL Total Bilirubin 0.6 (0.2-1.3) mg/dL AST 34 (14-36) U/L ALT 40 (9-52) U/L Alkaline Phosphatase 62 (38-126) U/L Total Protein 6.3 (6.3-8.2) g/dL Albumin 3.6 (3.5-5.0) g/dL Amylase <30 L (30-110) U/L Lipase 80 (23-300) U/L Urine Color Urine Appearance (Clear) Urine pH (5.0-8.0) Ur Specific [place] (1.001-1.035) Urine Protein (Negative) Urine Glucose (UA) (Negative) Urine Ketones (Negative) Urine Blood (Negative) Urine Nitrite (Negative) Urine Bilirubin (Negative) Urine Urobilinogen (<2.0) mg/dL Ur Leukocyte Esterase (Negative) Urine RBC (0-5) /hpf Ur Squamous Epith Cells (0-4) /hpf Urine Bacteria (None) /hpf Urine Mucus (None) /hpf 04/19/18 Range/Units 18:43 WBC (3.8-10.6) k/uL RBC (3.80-5.40) m/uL Hgb (11.4-16.0) gm/dL Hct (34.0-46.0) % MCV (80.0-100.0) fL MCH (25.0-35.0) pg MCHC (31.0-37.0) g/dL RDW (11.5-15.5) % Plt Count (150-450) k/uL Neutrophils % % Lymphocytes % % Monocytes % % Eosinophils % % Basophils % % Neutrophils # (1.3-7.7) k/uL Lymphocytes # (1.0-4.8) k/uL Monocytes # (0-1.0) k/uL Eosinophils # (0-0.7) k/uL Basophils # (0-0.2) k/uL Hypochromasia APTT (22.0-30.0) sec Sodium (137-145) mmol/L Potassium (3.5-5.1) mmol/L Chloride (98-107) mmol/L Carbon Dioxide (22-30) mmol/L Anion Gap mmol/L BUN (7-17) mg/dL Creatinine (0.52-1.04) mg/dL Est GFR (CKD-EPI)AfAm (>60 ml/min/1.73 sqM) Est GFR (CKD-EPI)NonAf (>60 ml/min/1.73 sqM) Glucose (74-99) mg/dL Calcium (8.4-10.2) mg/dL Total Bilirubin (0.2-1.3) mg/dL AST (14-36) U/L ALT (9-52) U/L Alkaline Phosphatase (38-126) U/L Total Protein (6.3-8.2) g/dL Albumin (3.5-5.0) g/dL Amylase (30-110) U/L Lipase (23-300) U/L Urine Color Yellow Urine Appearance Cloudy H (Clear) Urine pH 6.5 (5.0-8.0) Ur Specific [place] 1.009 (1.001-1.035) Urine Protein Negative (Negative) Urine Glucose (UA) Negative (Negative) Urine Ketones Negative (Negative) Urine Blood Moderate H (Negative) Urine Nitrite Negative (Negative) Urine Bilirubin Negative (Negative) Urine Urobilinogen <2.0 (<2.0) mg/dL Ur Leukocyte Esterase Negative (Negative) Urine RBC >182 H (0-5) /hpf Ur Squamous Epith Cells 13 H (0-4) /hpf Urine Bacteria Rare H (None) /hpf Urine Mucus Few H (None) /hpf - Radiology Data Radiology results: report reviewed Mild left obstructive uropathy secondary to 3 mm proximal ureteral calcificat ion. Mild cardiomegaly noted. Disposition Clinical Impression: Left ureteral stone Disposition: HOME SELF-CARE Condition: Good Instructions (If sedation given, give patient instructions): Ureteral Stones (ED) Additional Instructions: Patient advised that close follow-up with primary care physician. Patient should return to emergency department if any alarming signs or symptoms occur. Prescriptions: Acetaminophen-Codeine 300-30mg [Tylenol w/codeine #3] 1 tab PO Q6H PRN 3 Days #12 tablet PRN Reason: Pain Ketorolac [Toradol] 10 mg PO Q6HR #15 tab Ondansetron Odt [Zofran Odt] 4 mg PO Q8HR PRN #15 tab PRN Reason: Nausea Tamsulosin [Flomax] 0.4 mg PO DAILY #10 cap Is patient prescribed a controlled substance at d/c from ED?: Yes When asked, does pt state using other controlled substances?: No If prescribed controlled substance>3 days was MAPS reviewed?: Prescribed <3 Days If opioid is for acute pain is fill amount 7 days or less?: Yes If Rx opioid, was Start Talking consent form obtained?: Yes Referrals: Gkoul Dominguez MD [Primary Care Provider] - 1-2 days Time of Disposition: 20:55
[2018-04-19 18:16] LABS: ALT 40 U/L (9-52); AST 34 U/L (14-36); Albumin 3.6 g/dL (3.5-5.0); Alkaline Phosphatase 62 U/L (38-126); Amylase <30 U/L (30-110); Anion Gap 7 mmol/L; Blood Urea Nitrogen 10 mg/dL (7-17); Carbon Dioxide 22 mmol/L (22-30); Chloride 109 mmol/L (98-107); Glucose 127 mg/dL (74-99); Lipase 80 U/L (23-300); Potassium 4.7 mmol/L (3.5-5.1); Sodium 138 mmol/L (137-145); Total Bilirubin 0.6 mg/dL (0.2-1.3); Total Protein 6.3 g/dL (6.3-8.2)
[2018-04-19 18:52] LABS: Basophils # (A) 0.1 k/uL (0-0.2); Basophils % (A) 1 %; Eosinophils # (A) 0.2 k/uL (0-0.7); Eosinophils % (A) 3 %; HCT 53.7 % (34.0-46.0); HGB 16.6 gm/dL (11.4-16.0); Hypochromasia Slight; Lymphocytes # (A) 1.6 k/uL (1.0-4.8); Lymphocytes % (A) 18 %; MCH 30.2 pg (25.0-35.0); MCHC 30.9 g/dL (31.0-37.0); MCV 97.6 fL (80.0-100.0); Mean Platelet Volume 7.7; Monocytes # (A) 0.4 k/uL (0-1.0); Monocytes % (A) 5 %; Neutrophils # (A) 6.5 k/uL (1.3-7.7); Neutrophils % (A) 73 %; Platelet Count 167 k/uL (150-450); RDW 14.7 % (11.5-15.5)
[2018-04-19 18:57] LABS: Appearance,Urine Cloudy (Clear); Bacteria,Urine Rare /hpf; Bilirubin,Urine Negative (Negative); Blood,Urine Moderate (Negative); Color,Urine Yellow; Glucose,Urine (UA) Negative (Negative); Ketones,Urine Negative (Negative); Leukocyte Esterase,Urine Negative (Negative); Mucus,Urine Few /hpf; Nitrite,Urine Negative (Negative); PH, Urine 6.5 (5.0-8.0); Protein,Urine Negative (Negative); RBC,Urine >182 /hpf (0-5); Specific Gravity,Urine 1.009 (1.001-1.035); Squamous Epithelial Cell,Urine 13 /hpf (0-4); Urobilinogen,Urine <2.0 mg/dL (<2.0)
[2018-04-19] MEDS ORDERED: MORPHINE SULFATE 4 MG/ML SYRINGE IVP STA (20:26)
--- NOTE | 2018-04-19 20:52 | CT ---
EXAMINATION TYPE: CT abdomen pelvis wo con DATE OF EXAM: 04/19/2018 COMPARISON: 10/23/2017 HISTORY: left flank pain CT DLP: 2047 mGycm Automated exposure control for dose reduction was used. TECHNIQUE: Helical acquisition of images was performed from the lung bases through the pelvis. FINDINGS: VISUALIZED SUPRADIAPHRAGMATIC STRUCTURES: Mild cardiomegaly noted. LIVER/GB: No significant abnormality is appreciated. PANCREAS: No significant abnormality is seen. SPLEEN: No significant abnormality is seen. ADRENALS: No significant abnormality is seen. KIDNEYS AND URETERS AND BLADDER: There is [id number] left-sided hydronephrosis, with a 3 mm pro ximal ureteral calcification noted. No other definite ureteral calcifications. FREE AIR: No free air is visualized RETROPERITONEAL ADENOPATHY: None visualized REPRODUCTIVE ORGANS: No significant abnormality is seen URINARY BLADDER: No significant abnormality is seen. PELVIC ADENOPATHY: None visualized. OSSEOUS STRUCTURES: No significant abnormality is seen. BOWEL: No significant abnormality is seen. IMPRESSION: MILD LEFT OBSTRUCTIVE UROPATHY SECONDARY TO 3 MM PROXIMAL URETERAL CALCIFICATION. MILD CARDIOMEGALY NOTED.
[2018-04-19] MEDS ORDERED: TAMSULOSIN 0.4 MG CAP.ER.24H PO STA (20:54)
[2018-04-19 21:17] VITALS: BP 143/80; PULSE 89; RESP 18; TEMP 97.9
== END 2018-04-19 21:17 | disposition home or self-care (01) ==
LOC: EC 16:51
DX: N20.1 Calculus of ureter (principal); J32.9 Chronic sinusitis, unspecified; J45.909 Unspecified asthma, uncomplicated; K21.9 Gastro-esophageal reflux disease without esophagitis; F17.200 Nicotine dependence, unspecified, uncomplicated; Z79.899 Other long term (current) drug therapy; Z91.040 Latex allergy status; Z88.8 Allergy status to other drugs, medicaments and biological substances; Z90.710 Acquired absence of both cervix and uterus; Z96.653 Presence of artificial knee joint, bilateral
CPT/HCPCS: 36415; 80053; 82150; 83690; 85025; 85730; 81001; 87086; 74176; 99284; 96374; 96375; 96361; J2270; J1170

== ENCOUNTER 2018-05-26 19:56 | Inpatient (IN) | payer OTHER ==
[2018-05-26 21:10] LABS: Basophils # (A) 0.1 k/uL (0-0.2); Basophils % (A) 1 %; Eosinophils # (A) 0.3 k/uL (0-0.7); Eosinophils % (A) 3 %; HCT 48.2 % (34.0-46.0); HGB 15.1 gm/dL (11.4-16.0); Lymphocytes # (A) 1.8 k/uL (1.0-4.8); Lymphocytes % (A) 20 %; MCH 30.1 pg (25.0-35.0); MCHC 31.4 g/dL (31.0-37.0); MCV 95.9 fL (80.0-100.0); Mean Platelet Volume 7.3; Monocytes # (A) 0.4 k/uL (0-1.0); Monocytes % (A) 4 %; Neutrophils # (A) 6.6 k/uL (1.3-7.7); Neutrophils % (A) 72 %; Platelet Count 181 k/uL (150-450); RBC 5.02 m/uL (3.80-5.40); RDW 14.6 % (11.5-15.5); WBC 9.2 k/uL (3.8-10.6)
[2018-05-26 21:12] LABS: ALT 56 U/L (9-52); AST 24 U/L (14-36); Acetaminophen <10.0 ug/mL; Albumin 3.6 g/dL (3.5-5.0); Alcohol <10 mg/dL; Alkaline Phosphatase 55 U/L (38-126); Anion Gap 6 mmol/L; Blood Urea Nitrogen 10 mg/dL (7-17); Calcium 8.9 mg/dL (8.4-10.2); Carbon Dioxide 29 mmol/L (22-30); Chloride 104 mmol/L (98-107); Glucose 125 mg/dL (74-99); Potassium 3.5 mmol/L (3.5-5.1); Salicylate <1.0 mg/dL; Sodium 139 mmol/L (137-145); Total Bilirubin 0.4 mg/dL (0.2-1.3)
[2018-05-26] MEDS ORDERED: SODIUM CHLORIDE 0.9% 1,000 ML IV STA ×2 (21:13)
--- NOTE | 2018-05-26 21:17 | ED ---
General Adult HPI - General Chief complaint: Overdose Stated complaint: OD Suicidal Time Seen by Provider: 05/26/18 20:15 Source: patient, EMS, RN notes reviewed Mode of arrival: EMS Limitations: no limitations - History of Present Illness Initial comments: Patient is a 42-year-old female presenting to the emergency department with police escort for reported overdose. Patient is agitated. Patient reportedly took a bottle of Flexeril. Patient reportedly did this for suicidal ideation. Patient is not offering significant history at this point. Unclear if there is history of previous symptoms similarly. - Related Data Home Medications Medication Instructions Recorded Confirmed Furosemide [Lasix] 20 mg PO DAILY 03/08/17 05/26/18 Spironolactone [Aldactone] 25 mg PO BID 03/08/17 05/26/18 traMADol HCL [Ultram] 50 mg PO Q6H 03/08/17 05/26/18 Omeprazole [PriLOSEC] 20 mg PO DAILY 10/25/17 05/26/18 Prazosin [Minipress] 1 mg PO BID 10/25/17 05/26/18 Gabapentin 800 mg PO TID 05/26/18 05/26/18 traZODone HCL [Desyrel] 150 mg PO DAILY 05/26/18 05/26/18 Previous Rx's Medication Instructions Recorded DULoxetine HCL [Cymbalta] 60 mg PO BID #60 capsule. 03/11/17 Allergies Allergy/AdvReac Type Severity Reaction Status Date / Time lithium Allergy Vomiting Verified 05/26/18 20:11 pregabalin [From Lyrica] Allergy Vomiting Verified 05/26/18 20:11 topiramate [From Topamax] Allergy Abdominal Verified 05/26/18 20:11 Pain latex AdvReac Itching Verified 05/26/18 20:11 Review of Systems ROS Statement: Those systems with pertinent positive or pertinent negative responses have been documented in the HPI. ROS Other: All systems not noted in ROS Statement are negative. Limitations: ROS unobtainable due to patients medical condition Past Medical History Past Medical History: Asthma, GERD/Reflux, Musculoskeletal Disorder Additional Past Medical History / Comment(s): Neuropathy, Asthma, Torn R Rotator cuff, bulging discs, bilat. knee joints need replacement, History of Any Multi-Drug Resistant Organisms: None Reported Past Surgical History: Hysterectomy, Tubal Ligation Additional Past Surgical History / Comment(s): Right knee surg x3; Partial hysterectomy 2010/ovaries intact, Colonoscopy 2013, Past Anesthesia/Blood Transfusion Reactions: No Reported Reaction Past Psychological History: Anxiety, Bipolar, Depression Smoking Status: Current every day smoker Past Alcohol Use History: Occasional Past Drug Use History: Cocaine - Past Family History Mother Family Medical History: Cancer, Hypertension Additional Family Medical History / Comment(s): neuropathy; Mother had Colon Cancer Father Family Medical History: No Reported History General Exam Limitations: no limitations General appearance: alert, anxious Head exam: Present: atraumatic, normocephalic Eye exam: Present: normal appearance, PERRL, EOMI. Absent: nystagmus ENT exam: Present: mucous membranes dry Neck exam: Present: normal inspection. Absent: tenderness, meningismus Respiratory exam: Present: normal lung sounds bilaterally Cardiovascular Exam: Present: tachycardia GI/Abdominal exam: Present: soft. Absent: tenderness Extremities exam: Present: normal inspection Neurological exam: Present: alert, altered. Absent: motor sensory deficit Psychiatric exam: Present: agitated Skin exam: Present: normal color. Absent: rash Course Vital Signs 05/26/18 05/26/18 05/26/18 20:03 22:00 22:46 Temperature 98.8 F 98.7 F Pulse Rate 73 123 H 118 H Respiratory 20 20 16 Rate Blood Pressure 163/98 153/98 152/112 O2 Sat by Pulse 96 97 98 Oximetry 05/26/18 05/26/18 23:00 23:46 Temperature 98.7 F Pulse Rate 112 H 122 H Respiratory 20 20 Rate Blood Pressure 164/110 158/104 O2 Sat by Pulse 97 98 Oximetry - Reevaluation(s) Reevaluation #1: 05/26/18 21:42 bus monitor: Patient was placed on cardiac monitors secondary to overdose and to watch for arrhythmias. Monitor shows sinus tachycardia at 137. 05/27/18 00:01 Repeat EKG shows sinus tachycardia 108. MA 152. QRS 90. QT 354. QTC 474. Normal axis. Normal QRS. No acute ST change. PVC present. EKG Findings - EKG Comments: EKG Findings:: Tachycardia 107. MA 138. QRS 86. QT 348. QTC 464. Normal axis. Normal QRS. Nonspecific T waves. Procedures - Restraint - Face to Face Restraint Occurrence 1 Patient's Immediate Situation: Endangers self safety, Endangers others' safety, Endangers staff safety, Violent behavior Patient's Reaction to the Intervention: Uncooperative Patient's Medical & Behavioral Condition: Awake Need to Continue or Terminate Restraint or Seclusion: Continue Face to Face Eval of Restraint Date: 05/26/18 Face to Face Eval of Restraint Time: 21:15 Medical Decision Making - Medical Decision Making Patient reevaluated. Patient slightly improved. Patient updated. Case was discussed with Dr. Lynne medina, covering for Dr. Dominguez, who will admit. - Lab Data Result diagrams: 05/26/18 20:00 05/26/18 21:00 Lab Results 05/26/18 05/26/18 05/26/18 Range/Units 20:00 20:00 21:00 WBC 9.2 (3.8-10.6) k/uL RBC 5.02 (3.80-5.40) m/uL Hgb 15.1 (11.4-16.0) gm/dL Hct 48.2 H (34.0-46.0) % MCV 95.9 (80.0-100.0) fL MCH 30.1 (25.0-35.0) pg MCHC 31.4 (31.0-37.0) g/dL RDW 14.6 (11.5-15.5) % Plt Count 181 (150-450) k/uL Neutrophils % 72 % Lymphocytes % 20 % Monocytes % 4 % Eosinophils % 3 % Basophils % 1 % Neutrophils # 6.6 (1.3-7.7) k/uL Lymphocytes # 1.8 (1.0-4.8) k/uL Monocytes # 0.4 (0-1.0) k/uL Eosinophils # 0.3 (0-0.7) k/uL Basophils # 0.1 (0-0.2) k/uL Sodium 139 (137-145) mmol/L Potassium 3.5 (3.5-5.1) mmol/L Chloride 104 (98-107) mmol/L Carbon Dioxide 29 (22-30) mmol/L Anion Gap 6 mmol/L BUN 10 (7-17) mg/dL Creatinine 0.73 (0.52-1.04) mg/dL Est GFR (CKD-EPI)AfAm >90 (>60 ml/min/1.73 sqM) Est GFR (CKD-EPI)NonAf >90 (>60 ml/min/1.73 sqM) Glucose 125 H (74-99) mg/dL Calcium 8.9 (8.4-10.2) mg/dL Total Bilirubin 0.4 (0.2-1.3) mg/dL AST 24 (14-36) U/L ALT 56 H (9-52) U/L Alkaline Phosphatase 55 (38-126) U/L Total Protein 6.0 L (6.3-8.2) g/dL Albumin 3.6 (3.5-5.0) g/dL Urine Color Yellow Urine Appearance Clear (Clear) Urine pH 6.5 (5.0-8.0) Ur Specific Verdi 1.010 (1.001-1.035) Urine Protein Negative (Negative) Urine Glucose (UA) Negative (Negative) Urine Ketones Negative (Negative) Urine Blood Negative (Negative) Urine Nitrite Negative (Negative) Urine Bilirubin Negative (Negative) Urine Urobilinogen <2.0 (<2.0) mg/dL Ur Leukocyte Esterase Negative (Negative) Urine HCG, Qual (Not Detectd) Salicylates <1.0 mg/dL Urine Opiates Screen Detected H (NotDetected) Ur Oxycodone Screen Not Detected (NotDetected) Urine Methadone Screen Not Detected (NotDetected) Ur Propoxyphene Screen Not Detected (NotDetected) Acetaminophen <10.0 ug/mL Ur Barbiturates Screen Not Detected (NotDetected) U Tricyclic Antidepress Detected H (NotDetected) Ur Phencyclidine Scrn Not Detected (NotDetected) Ur Amphetamines Screen Detected H (NotDetected) U Methamphetamines Scrn Detected H (NotDetected) U Benzodiazepines Scrn Not Detected (NotDetected) Urine Cocaine Screen Detected H (NotDetected) U Marijuana (THC) Screen Not Detected (NotDetected) Serum Alcohol <10 mg/dL 05/26/18 Range/Units 21:16 WBC (3.8-10.6) k/uL RBC (3.80-5.40) m/uL Hgb (11.4-16.0) gm/dL Hct (34.0-46.0) % MCV (80.0-100.0) fL MCH (25.0-35.0) pg MCHC (31.0-37.0) g/dL RDW (11.5-15.5) % Plt Count (150-450) k/uL Neutrophils % % Lymphocytes % % Monocytes % % Eosinophils % % Basophils % % Neutrophils # (1.3-7.7) k/uL Lymphocytes # (1.0-4.8) k/uL Monocytes # (0-1.0) k/uL Eosinophils # (0-0.7) k/uL Basophils # (0-0.2) k/uL Sodium (137-145) mmol/L Potassium (3.5-5.1) mmol/L Chloride (98-107) mmol/L Carbon Dioxide (22-30) mmol/L Anion Gap mmol/L BUN (7-17) mg/dL Creatinine (0.52-1.04) mg/dL Est GFR (CKD-EPI)AfAm (>60 ml/min/1.73 sqM) Est GFR (CKD-EPI)NonAf (>60 ml/min/1.73 sqM) Glucose (74-99) mg/dL Calcium (8.4-10.2) mg/dL Total Bilirubin (0.2-1.3) mg/dL AST (14-36) U/L ALT (9-52) U/L Alkaline Phosphatase (38-126) U/L Total Protein (6.3-8.2) g/dL Albumin (3.5-5.0) g/dL Urine Color Urine Appearance (Clear) Urine pH (5.0-8.0) Ur Specific Verdi (1.001-1.035) Urine Protein (Negative) Urine Glucose (UA) (Negative) Urine Ketones (Negative) Urine Blood (Negative) Urine Nitrite (Negative) Urine Bilirubin (Negative) Urine Urobilinogen (<2.0) mg/dL Ur Leukocyte Esterase (Negative) Urine HCG, Qual Not Detected (Not Detectd) Salicylates mg/dL Urine Opiates Screen (NotDetected) Ur Oxycodone Screen (NotDetected) Urine Methadone Screen (NotDetected) Ur Propoxyphene Screen (NotDetected) Acetaminophen ug/mL Ur Barbiturates Screen (NotDetected) U Tricyclic Antidepress (NotDetected) Ur Phencyclidine Scrn (NotDetected) Ur Amphetamines Screen (NotDetected) U Methamphetamines Scrn (NotDetected) U Benzodiazepines Scrn (NotDetected) Urine Cocaine Screen (NotDetected) U Marijuana (THC) Screen (NotDetected) Serum Alcohol mg/dL Critical Care Time Critical Care Time: Yes Total Critical Care Time: 33 Disposition Clinical Impression: Overdose, Cocaine abuse, Depression, Amphetamine abuse, Tachycardia Disposition: ADMITTED IP TO THIS HOSP Is patient prescribed a controlled substance at d/c from ED?: No Referrals: Gokul Dominguez MD [Primary Care Provider] - 1-2 days Decision Time: 00:04
[2018-05-26 21:26] LABS: Phencyclidine Screen,Urine Not Detected (NotDetected); Urn Cannabinoid Scrn Not Detected (NotDetected)
[2018-05-26 21:27] LABS: Amphetamine Screen,Urine Detected (NotDetected); Barbiturate Screen,Urine Not Detected (NotDetected); Benzodiazepines Screen,Urine Not Detected (NotDetected); Cocaine Screen,Urine Detected (NotDetected); Methadone Screen, Urine Not Detected (NotDetected); Opiate Screen,Urine Detected (NotDetected); Oxycodone Screen, Urine Not Detected (NotDetected); Tricyclic Antidepressant,Urine Detected (NotDetected)
[2018-05-26] MEDS ORDERED: LORazepam 2 MG/ML INJ IV STA ×2 (21:29→23:32)
[2018-05-26 21:51] LABS: Appearance,Urine Clear (Clear); Bilirubin,Urine Negative (Negative); Blood,Urine Negative (Negative); Color,Urine Yellow; Glucose,Urine (UA) Negative (Negative); Ketones,Urine Negative (Negative); Leukocyte Esterase,Urine Negative (Negative); Nitrite,Urine Negative (Negative); PH, Urine 6.5 (5.0-8.0); Protein,Urine Negative (Negative); Urobilinogen,Urine <2.0 mg/dL (<2.0)
--- NOTE | 2018-05-26 23:52 | XR ---
EXAM: XR Chest, 1 View CLINICAL HISTORY: ITS.REASON XR Reason: ams TECHNIQUE: Frontal view of the chest. COMPARISON: Chest radiography 05/15/18. FINDINGS: Limitations: No other significant abnormality on limited assessment. Lungs: Low lung volumes. Cephalization of the pulmonary vascular flow or vascular congestion at the upper lungs. Diffuse interstitial thickening concerning for pulmonary edema. Pleural space: No definite pneumothorax or pleural effusion. Heart: Prominent cardiac spine concerning for. Possible cardiomegaly. Mediastinum: Unremarkable. Bones/joints: Unremarkable. IMPRESSION: Findings can be seen with congestive heart failure exacerbation. Correlate clinically.
[2018-05-27] MEDS ORDERED: NALOXONE 0.4 MG/ML 1 ML VIAL IV PRN (00:05)
[2018-05-27 00:20] LABS: Anion Gap 3 mmol/L; Blood Urea Nitrogen 7 mg/dL (7-17); Calcium 8.5 mg/dL (8.4-10.2); Carbon Dioxide 26 mmol/L (22-30); Chloride 110 mmol/L (98-107); Glucose 102 mg/dL (74-99); Magnesium 1.9 mg/dL (1.6-2.3); Potassium 3.5 mmol/L (3.5-5.1); Sodium 139 mmol/L (137-145)
[2018-05-27] MEDS: LORazepam 2 MG/ML INJ IV PRN ×5 (01:19→21:18)
[2018-05-27] MEDS: SODIUM CHLORIDE 0.9% 1,000 ML IV SCH ×4 (01:49→22:55)
[2018-05-27] MEDS ORDERED: Potassium Replacement Protocol 1 EACH MISC MISCELLANE PRN (15:42)
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
[2018-05-27] MEDS: POTASSIUM CHLORIDE 10 MEQ in WATER FOR INJECTION 1 100ML.BAG IVPB SCH ×2 (21:34→22:55)
[2018-05-28] MEDS: POTASSIUM CHLORIDE 10 MEQ in WATER FOR INJECTION 1 100ML.BAG IVPB SCH ×2 (00:16→01:31)
[2018-05-28] MEDS: LORazepam 2 MG/ML INJ IV PRN ×4 (04:03→20:29)
[2018-05-28] MEDS: SODIUM CHLORIDE 0.9% 1,000 ML IV SCH ×2 (06:05→17:07)
[2018-05-28 07:17] LABS: Basophils % (A) 1 %; Eosinophils # (A) 0.2 k/uL (0-0.7); Eosinophils % (A) 3 %; HCT 45.4 % (34.0-46.0); Lymphocytes # (A) 1.7 k/uL (1.0-4.8); Lymphocytes % (A) 22 %; MCH 29.9 pg (25.0-35.0); MCHC 30.9 g/dL (31.0-37.0); MCV 96.7 fL (80.0-100.0); Mean Platelet Volume 7.5; Monocytes # (A) 0.4 k/uL (0-1.0); Monocytes % (A) 5 %; Neutrophils # (A) 5.1 k/uL (1.3-7.7); Neutrophils % (A) 67 %; Platelet Count 156 k/uL (150-450); RBC 4.69 m/uL (3.80-5.40); RDW 14.5 % (11.5-15.5); WBC 7.6 k/uL (3.8-10.6)
[2018-05-28 07:25] LABS: ALT 62 U/L (9-52); AST 29 U/L (14-36); Alkaline Phosphatase 51 U/L (38-126); Anion Gap 4 mmol/L; Bilirubin, Delta 0.2 mg/dL (0.0-0.2); Bilirubin,Unconjugated 0.5 mg/dL (0.0-1.1); Blood Urea Nitrogen 5 mg/dL (7-17); Calcium 8.5 mg/dL (8.4-10.2); Carbon Dioxide 24 mmol/L (22-30); Chloride 110 mmol/L (98-107); Glucose 72 mg/dL (74-99); Potassium 3.8 mmol/L (3.5-5.1); Sodium 138 mmol/L (137-145); Total Bilirubin 0.7 mg/dL (0.2-1.3); Total Protein 5.3 g/dL (6.3-8.2)
[2018-05-28 11:26] LABS: Hepatitis A Antibody IgM Non-Reactive (Non-Reactive); Hepatitis B Core IgM Non-Reactive (Non-Reactive)
--- NOTE | 2018-05-28 13:50 | P.PN ---
Subjective Progress Note Date: 05/28/18 (Bipolar/depression/behavioral disorder with anger) Principal diagnosis: Suicidal attempt #4 Morbid obesity BMI 61.5. History of low back pain no complaint at this time. Kelly catheter is removed. Patient was awake alert had a shower this morning able to eat and swallow. Requesting transfer to mental health unit. Consultation with Dr. Earl psychiatrist hospitalist has been ordered patient was not seen yet and we requested to evaluated and to transfer. Patient currently cleared medically for transfer with the blood pressure 138/77, no telemetry and pulse rate is 88 regular. IV fluid will be discontinued when Dr. Earl acceptive. Patient to the mental health unit. Deconditioning, "PT" physical therapy requested for ambulation. Ativan has been ordered through the emergency room by recommendation of poison control however patient is currently lethargic and we'll decrease the Ativan 2.5 mg every 4 hour when necessary feeding for agitation. This patient of Dr. Gokul Dominguez. Patient admitted under my service. Status post suicidal attempt and drug overdose. Vital signs today: Afebrile 98.1 orally pulse 82 respiratory rate 138/77 with a mean arterial pressure 97 and the pulse ox 93%. The patient is conscious she is alert but she closing her eyes she does respond to verbal stimuli but she doesn't want to talk to anybody. Patient able to stand today with a shower and eat her lunch and will be advance it to 2 regular healthy diet. On exam Neck was supple no JVD no lymphadenopathy. HEENT negative with the pupil equal reactive. And she able also to swallow and eat and requested regular food. Chest was clear to auscultation and percussion. Heart regular sinus rhythm Abdomen obese positive bowel sounds with the underlying BMI of 61.5 and morbid obesity. Extremities no edema and positive pulses bilateral. No neuro deficit, no tremor no shaking, no lateralizing sign. Able to stand and heat and move 4 extremities. Laboratories: WBC 7.6, hemoglobin 14, glucose 72 patient to started her meals. Her AST 62 associated with an overdose on baclofen/ Flexeril in different stories from the patient, none reliable. Historian. Estimated glomerular filtration rate for non- more than 90 and normal calcium, normal bilirubin, hepatitis profile was nonreactive a B and C. Assessment and plan: Patient is progressive improvement, consultation with psychiatry ordered on admission. Patient has also history of substance abuse according to her urine analysis, positive opiate positive tricyclic antidepressant positive amphetamine positive meth amphetamine and positive cocaine. No alcohol less than 10 salicylate less than 10 and acetaminophen less than 10. Request for transfer to mental health see as soon as possible, patient need the psychiatric treatment with her previous home medication. Objective - Vital Signs Vital signs: Vital Signs Temp 98.1 F 05/28/18 04:00 Pulse 82 05/28/18 12:00 Resp 17 05/28/18 12:00 BP 138/77 05/28/18 12:00 Pulse Ox 93 L 05/28/18 12:00 Intake & Output 05/27/18 05/28/18 05/28/18 18:59 06:59 18:59 Intake Total 130 1440 120 Output Total 125 1100 1425 Balance 5 340 -1305 Weight 153.5 kg 152.5 kg Intake: IV 1040 0.9 1040 Intake, IV Titration 130 400 Amount Potassium Chloride 10 meq 400 In Water For Injection 1 100ml.bag @ 100 mls/hr IVPB Q1HR [facility] Rx#: [id number] Sodium Chloride 0.9% 1, 130 000 ml @ 130 mls/hr IV . [id number] [facility] Rx#:[id number] Oral 120 Output: Urine 125 1100 1425 Uretheral (Kelly) 750 Other: Voiding Method Indwelling Catheter Indwelling Catheter Indwelling Catheter - Labs CBC & Chem 7: 05/28/18 06:37 05/28/18 06:37 Labs: Abnormal Lab Results - Last 24 Hours (Table) 05/28/18 05/28/18 Range/Units 06:37 06:37 MCHC 30.9 L (31.0-37.0) g/dL Chloride 110 H (98-107) mmol/L BUN 5 L (7-17) mg/dL Glucose 72 L (74-99) mg/dL ALT 62 H (9-52) U/L Total Protein 5.3 L (6.3-8.2) g/dL Albumin 3.0 L (3.5-5.0) g/dL
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
[2018-05-29] MEDS: SODIUM CHLORIDE 0.9% 1,000 ML IV SCH ×2 (05:07→21:26)
[2018-05-29 06:56] LABS: Anion Gap 4 mmol/L; Blood Urea Nitrogen 6 mg/dL (7-17); Carbon Dioxide 25 mmol/L (22-30); Chloride 109 mmol/L (98-107); Glucose 92 mg/dL (74-99); Sodium 138 mmol/L (137-145)
[2018-05-29 06:59] LABS: Basophils % (A) 1 %; Eosinophils # (A) 0.2 k/uL (0-0.7); Eosinophils % (A) 3 %; HCT 43.9 % (34.0-46.0); HGB 14.4 gm/dL (11.4-16.0); Lymphocytes # (A) 1.5 k/uL (1.0-4.8); Lymphocytes % (A) 25 %; MCH 30.8 pg (25.0-35.0); MCHC 32.9 g/dL (31.0-37.0); MCV 93.7 fL (80.0-100.0); Mean Platelet Volume 7.4; Monocytes # (A) 0.4 k/uL (0-1.0); Monocytes % (A) 6 %; Neutrophils # (A) 3.8 k/uL (1.3-7.7); Neutrophils % (A) 63 %; Platelet Count 160 k/uL (150-450); RBC 4.69 m/uL (3.80-5.40); RDW 15.2 % (11.5-15.5)
[2018-05-29] MEDS: LORazepam 2 MG/ML INJ IV PRN ×3 (11:39→22:56)
[2018-05-29] MEDS ORDERED: ENALAPRILAT 1.25 MG/ML 1 ML VIAL IVP PRN (12:20)
--- NOTE | 2018-05-29 12:34 | P.PN ---
Subjective Progress Note Date: 05/29/18 (Suicidal attempt) Principal diagnosis: Suicidal attempt #4 Morbid obesity BMI 61.5. History of low back pain no complaint at this time. Kelly catheter is removed. Patient was awake alert had a shower this morning able to eat and swallow. Requesting transfer to mental health unit. Consultation with Dr. Earl psychiatrist hospitalist has been ordered patient was not seen yet and we requested to evaluated and to transfer. Patient currently cleared medically for transfer with the blood pressure 138/77, no telemetry and pulse rate is 88 regular. IV fluid will be discontinued when Dr. Earl acceptive. Patient to the mental health unit. Deconditioning, "PT" physical therapy requested for ambulation. Ativan has been ordered through the emergency room by recommendation of poison control however patient is currently lethargic and we'll decrease the Ativan 2.5 mg every 4 hour when necessary feeding for agitation. Objective - Vital Signs Vital signs: Vital Signs Temp 97.6 F 05/29/18 04:00 Pulse 66 05/29/18 08:20 Resp 18 05/29/18 08:20 BP 157/92 05/29/18 08:20 Pulse Ox 95 05/29/18 08:20 Intake & Output 05/28/18 05/29/18 05/29/18 18:59 06:59 18:59 Intake Total 360 600 240 Output Total 1425 Balance -1065 600 240 Weight 147.6 kg Intake: IV 600 0.9 600 Oral 360 240 Output: Urine 1425 Uretheral (Kelly) 750 Other: Voiding Method Indwelling Catheter Indwelling Catheter # Voids 1 3 1 - Labs CBC & Chem 7: 05/29/18 06:23 05/29/18 06:23 Labs: Abnormal Lab Results - Last 24 Hours (Table) 05/29/18 Range/Units 06:23 Chloride 109 H (98-107) mmol/L BUN 6 L (7-17) mg/dL
--- NOTE | 2018-05-29 12:43 | P.PN ---
Progress Note - Text Progress Note Date: 05/29/18 Interval history: Patient seen in psychiatric follow-up today. She reports that she is having ongoing thoughts of suicide and reports today thoughts of harm to others in general. She does not at this time seem agreeable to admission to the inpatient mental health unit. There is a petition on the chart that was done on May 26. Mental status exam: She is alert, presents as somewhat irritable. Her mood seems depressed and irritable. She admits to ongoing thoughts of suicide, reports today thoughts of harm to others in general. He does not appear to be any active symptoms of psychosis. Plan: Recommend admission to the inpatient psychiatric unit. We'll need to wait for a bed to become available. It is likely that she will need to be admitted involuntarily. Keep one-to-one sitter in place.
--- NOTE | 2018-05-29 12:45 | P.PN ---
Subjective Progress Note Date: 05/29/18 (Physical 110) Progress note on Mrs. Dumont, Patient admitted with the Flexeril overdose 5 mg more than 200 as she is now awake alert and changed her story from baclofen to Flexeril she was seen by Dr. Link psychiatrist and he will be transferred to mental health unit, she there is no beds and the the nursing discharge will be planned for transfer to [facility] subsequently go to mental health when the bed is available still she had the precaution. On exam her blood pressure mildly elevated probably from the IV Kelly and we will be discontinuing IV and giving her HCTZ diuretic 12.5 mg once a day for couple days and recheck her electrolyte subsequently. Meanwhile reported the the Vasotec 1.25 mg IV push if the blood pressure above 140 systolic. Patient awake alert oriented, and the she able to answer question and ate her lunch and ambulatory. She still aggressive behavior. On the exam PT is she is conscious alert oriented 3 no evidence of delirium. HEENT negative Neck was supple no lymphadenopathy trachea midline. Chest clear to auscultation and percussion. Heart regular sinus rhythm with temporary increased blood pressure. Abdomen soft positive bowel sounds no tenderness in the four-quadrant. Extremities: No edema and positive pulses and ambulatory. Currently she is on DVT prophylaxis will continue on total patient transferred to mental health unit. When the bed is available. Assessment: #1 drug overdose with Flexeril more than 200 tablet and the Flexeril is 5 mg. #2 morbid obesity with a BMI ranging between 60.1 currently 59.5. #3 recurrent attempt suicidal and this is her number 4 episode. #4 bipolar, depression, aggressive behavior,. #5 substance abuse with multiple proximal in her urine toxicology. #6 no evidence of hepatitis a, B, C by the blood test. Plan: #1 DC IV fluid, saline lock. #2 couple doses of hydrochlorothiazide because of the blood pressure is elevated probably secondary to the volume IV fluid. #3 will start when necessary Vasotec 1.25 mg every 6 hour when necessary only. #4 in regard of her psychiatric medication, left for Dr. Link psychiatrist to modulate and accommodate with the underlying suicidal attempt and aggression behavior with the bipolar and depression. #5 transfer patient to the mental health unit as bed is available. #6 currently the discharge nurse on the floor telemetry because there is no beds available and mental health we will transfer her to [facility] until the bed is open. Objective - Vital Signs Vital signs: Vital Signs Temp 97.6 F 05/29/18 04:00 Pulse 66 05/29/18 08:20 Resp 18 05/29/18 08:20 BP 157/92 05/29/18 08:20 Pulse Ox 95 05/29/18 08:20 Intake & Output 05/28/18 05/29/18 05/29/18 18:59 06:59 18:59 Intake Total 360 600 240 Output Total 1425 Balance -1065 600 240 Weight 147.6 kg Intake: IV 600 0.9 600 Oral 360 240 Output: Urine 1425 Uretheral (Kelly) 750 Other: Voiding Method Indwelling Catheter Indwelling Catheter # Voids 1 3 1 - Labs CBC & Chem 7: 05/29/18 06:23 05/29/18 06:23 Labs: Abnormal Lab Results - Last 24 Hours (Table) 05/29/18 Range/Units 06:23 Chloride 109 H (98-107) mmol/L BUN 6 L (7-17) mg/dL
[2018-05-29] MEDS: HYDROCHLOROTHIAZIDE 12.5 MG CAP PO SCH (14:05)
[2018-05-29] MEDS ORDERED: ACETAMINOPHEN TAB 325 MG TAB PO PRN (17:28)
[2018-05-30 07:58] LABS: Basophils # (A) 0.1 k/uL (0-0.2); Basophils % (A) 1 %; Eosinophils # (A) 0.2 k/uL (0-0.7); Eosinophils % (A) 3 %; HCT 46.8 % (34.0-46.0); HGB 14.9 gm/dL (11.4-16.0); Lymphocytes # (A) 1.6 k/uL (1.0-4.8); Lymphocytes % (A) 21 %; MCHC 31.8 g/dL (31.0-37.0); MCV 94.1 fL (80.0-100.0); Mean Platelet Volume 6.8; Monocytes # (A) 0.5 k/uL (0-1.0); Monocytes % (A) 6 %; Neutrophils # (A) 5.1 k/uL (1.3-7.7); Neutrophils % (A) 67 %; Platelet Count 168 k/uL (150-450); RBC 4.98 m/uL (3.80-5.40); RDW 14.6 % (11.5-15.5); WBC 7.7 k/uL (3.8-10.6)
[2018-05-30 08:07] LABS: Anion Gap 5 mmol/L; Blood Urea Nitrogen 9 mg/dL (7-17); Calcium 8.8 mg/dL (8.4-10.2); Carbon Dioxide 24 mmol/L (22-30); Chloride 109 mmol/L (98-107); Glucose 101 mg/dL (74-99); Sodium 138 mmol/L (137-145)
[2018-05-30 08:19] VITALS: TEMP 98
[2018-05-30] MEDS: HYDROCHLOROTHIAZIDE 12.5 MG CAP PO SCH (08:40)
[2018-05-30] MEDS: LORazepam 2 MG/ML INJ IV PRN ×2 (08:40→11:49)
[2018-05-30 13:53] VITALS: BP 126/75; PULSE 87; RESP 18
[2018-05-30] MEDS ORDERED: LORazepam 2 MG/ML INJ IV STA (14:32)
--- NOTE | 2018-05-30 19:25 | DS ---
DISCHARGE SUMMARY PCP is Dr. Gokul Dominguez and dictating the discharge by Dr. Ulloa. The patient was FULL CODE. DATA: She is a 5 foot 2 inches height, the weight 147.6 kg. The BSA 2.35 m2, BMI 59.5 kg/m2. Morbid obesity. SHE IS ALLERGIC TO LITHIUM, PREGABALIN, TOPIRAMATE AND LATEX. She is a 42 years old white female, . Her date of 1975. Room #405 bed 1. FINAL DIAGNOSES: 1. Drug overdose with Flexeril more than 200, tablet 5 mg. 2. Acute suicide attempt. 3. Underlying bipolar disorder, depression, and anxiety. 4. Multi substance abuse through her urine test with the presence of cocaine and others. 5. History of obesity. 6. Underlying low back pain. The patient presented to the emergency room by the police with agitation aggravation and brought to the hospital, found that she had a suicidal attempt with the use of Flexeril more than 200. The patient initially was in delirium and drowsy and she was stating . Her mother does not really know and her boyfriend does not really know either. Subsequently after she wake up, Dr. Link, psychiatrist saw her and at that time, she told them she took Flexeril for suicidal attempt. In he ER, they called the Poison Control and they advised them with IV Ativan followed with IV fluid. The patient continued the same protocol on the floor after stayed overnight in the ER modules. Subsequently, we had consulted the psychiatrist and the social security benefits interviewer. As well, I did discuss it with her mom. With hydration and the monitoring and Ativan has been gradually decreased and the patient woke up, we discontinued the IV and we requested the patient with her suicidal attempt #4 trial should be on the psychiatric floor and subsequently telemetry was discontinued. The telemetry floor transferred her to [facility] yesterday and today the psychiatry nurse did do the input and admission and subsequently accepted for transfer to the psych floor. On the discharge, her temperature was 98, pulse was regular 87 per minute, respiratory rate was 18. Her blood pressure 126/75 and her mean pressure was 92. Her pulse ox was 94 on room air. However, is fluctuating. The patient has no IV. Kelly catheter initially was placed for the large volume of IV fluids, subsequently discontinued and patient able to urinate on her own. As patient able to ambulate, stand up, she took a shower yesterday morning and at that time, we did not start any medication. She complained of a headache. We did give her some Tylenol as the only medicine started on. The patient with the underlying superior psychiatric disorder with a history of agitation and anger management disorder as well and her medication is multiple all related to the psychiatric origin. Her vital sign does not need added medication. However, from the volume status, her blood pressure went up mildly. We gave her some blood pressure monitor, and only on a p.r.n. basis and gave her a couple days of diuretics. She is back to normal with blood pressure today prior to discharge to the psychiatric floor 126/75. With this finding, patient is stable general condition for transfer to the psych floor and the patient discharged with the current no medication. Her medication will be adjusted to gastric pond in the floor of the psychiatry. IMPRESSION: Mood disturbance, bipolar depression, and anxiety disorder. The patient is a patient of Dr. Dominguez and she had multiple admissions to the mental health unit [facility] and she will be after the completion will be followed by Dr. Dominguez. ISABEL / NISH: [id number] /
== END 2018-05-30 15:03 | DRG 918 ==
LOC: EC 19:56 → 3SCARD 05-27 00:05 → 4MS4W 05-29 15:08
PROVIDERS: ADMIT Internal Medicine; ATTEND Internal Medicine
DX: T48.1X1A Poisoning by skeletal muscle relaxants [neuromuscular blocking agents], accidental (unintentional), initial encounter (principal); Z68.44 Body mass index [BMI] 60.0-69.9, adult; T42.8X2A Poisoning by antiparkinsonism drugs and other central muscle-tone depressants, intentional self-harm, initial encounter; R41.0 Disorientation, unspecified; E66.01 Morbid (severe) obesity due to excess calories; F14.10 Cocaine abuse, uncomplicated; F15.10 Other stimulant abuse, uncomplicated; F17.210 Nicotine dependence, cigarettes, uncomplicated; F31.9 Bipolar disorder, unspecified; F41.9 Anxiety disorder, unspecified; J44.9 Chronic obstructive pulmonary disease, unspecified; K21.9 Gastro-esophageal reflux disease without esophagitis; Z79.899 Other long term (current) drug therapy; Z80.0 Family history of malignant neoplasm of digestive organs; Z82.49 Family history of ischemic heart disease and other diseases of the circulatory system; Z82.5 Family history of asthma and other chronic lower respiratory diseases; Z87.01 Personal history of pneumonia (recurrent); Z87.442 Personal history of urinary calculi; Z90.711 Acquired absence of uterus with remaining cervical stump; Z91.19 Patient's noncompliance with other medical treatment and regimen; Z91.5 Personal history of self-harm; Z81.8 Family history of other mental and behavioral disorders; G62.9 Polyneuropathy, unspecified; F10.10 Alcohol abuse, uncomplicated; M54.5 Low back pain; M17.0 Bilateral primary osteoarthritis of knee; Z88.8 Allergy status to other drugs, medicaments and biological substances; Z91.040 Latex allergy status; Z87.09 Personal history of other diseases of the respiratory system
CPT/HCPCS: 36415; 71045; 80048; 80053; 80074; 80076; 80306; 80320; 81003; 81025; 82553; 83520; 83735; 85025; 93005; 96361; 96374; 96376; 99291

== ENCOUNTER 2018-05-30 14:57 | Inpatient (IN) | payer MEDICAID, OTHER ==
[2018-05-30] MEDS ORDERED: MAG HYDROX/AL HYDROX/SIMETH 30 ML CUP PO PRN (15:25)
[2018-05-30] MEDS ORDERED: MAGNESIUM HYDROXIDE 2,400 MG/10 ML CUP PO PRN (15:25)
[2018-05-30] MEDS ORDERED: LORazepam 2 MG/ML INJ IM PRN (15:40)
[2018-05-30] MEDS: ZIPRASIDONE 20 MG VIAL IM PRN (16:12)
[2018-05-30 18:54] VITALS: BMI 59.5
[2018-05-30] MEDS ORDERED: VENLAFAXINE HCL 37.5 MG TAB PO SCH (21:00)
[2018-05-30] MEDS: LORazepam 1 MG TAB PO PRN (22:50)
[2018-05-31] MEDS: NICOTINE 14MG/24HR PATCH TRANSDERM SCH (08:57)
[2018-05-31] MEDS: LORazepam 1 MG TAB PO PRN ×2 (08:57→17:32)
[2018-05-31 10:20] LABS: Cholesterol 174 mg/dL (<200); HDL Cholesterol 41 mg/dL (40-60); LDL Cholesterol,Calculated 94 mg/dL (0-99); Triglycerides 196 mg/dL (<150)
--- NOTE | 2018-05-31 12:17 | P.HP ---
Psychiatric H&P - . H&P Date: 05/31/18 History & Physical: Allergies Allergy/AdvReac Type Severity Reaction Status Date / Time lithium Allergy Vomiting Verified 05/31/18 09:34 pregabalin [From Lyrica] Allergy Vomiting Verified 05/31/18 09:34 topiramate [From Topamax] Allergy Abdominal Verified 05/31/18 09:34 Pain latex AdvReac Itching Verified 05/31/18 09:34 Vital Signs Temp 97.8 F 05/31/18 08:59 Pulse 109 H 05/31/18 08:59 Resp 20 05/31/18 08:59 BP 108/70 05/31/18 08:59 Pulse Ox 97 05/31/18 08:59 Intake & Output 05/30/18 05/31/18 05/31/18 18:59 06:59 18:59 Weight 147.6 kg Assessment and Plan Assessment: IDENTIFYING DATA: A 42-year-old female patient HPI: Patient admitted to the medical floor [facility] status post overdose. She reports that she took approximately 200 pills of Flexeril all at once. She admits that she had thoughts of suicide at this time. When I ask her any triggers to the episode she states that she is told that she doesn't do things right. She has been depressed daily lately. She does admit to anxiety and being a worrier. Her boyfriend by history with him the other room. He states that she threw the bot tle at him and roommates called 911. Her boyfriend is present during the evaluation with the patient's agreeable. Patient is a 42-year-old female presenting to the emergency department with police escort for reported overdose. Patient is agitated. Patient reportedly took a bottle of Flexeril. Patient reportedly did this for suicidal ideation. Patient is not offering significant history at this point. Unclear if there is history of previous symptoms similarly. Home Medications Medication Instructions Recorded Confirmed Furosemide [Lasix] 20 mg PO DAILY 03/08/17 05/26/18 Spironolactone [Aldactone] 25 mg PO BID 03/08/17 05/26/18 traMADol HCL [Ultram] 50 mg PO Q6H 03/08/17 05/26/18 Omeprazole [PriLOSEC] 20 mg PO DAILY 10/25/17 05/26/18 Prazosin [Minipress] 1 mg PO BID 10/25/17 05/26/18 Gabapentin 800 mg PO TID 05/26/18 05/26/18 traZODone HCL [Desyrel] 150 mg PO DAILY 05/26/18 05/26/18 Previous Rx's Medication Instructions Recorded DULoxetine HCL [Cymbalta] 60 mg PO BID #60 capsule. 03/11/17 Allergies Allergy/AdvReac Type Severity Reaction Status Date / Time lithium Allergy Vomiting Verified 05/26/18 20:11 pregabalin [From Lyrica] Allergy Vomiting Verified 05/26/18 20:11 topiramate [From Topamax] Allergy Abdominal Verified 05/26/18 20:11 Pain latex AdvReac Itching Verified 05/26/18 20:11 Past Medical History Past Medical History: Asthma, GERD/Reflux, Musculoskeletal Disorder Additional Past Medical History / Comment(s): Neuropathy, Asthma, Torn R Rotator cuff, bulging discs, bilat. knee joints need replacement, History of Any Multi-Drug Resistant Organisms: None Reported Past Surgical History: Hysterectomy, Tubal Ligation Additional Past Surgical History / Comment(s): Right knee surg x3; Partial hysterectomy 2009/ovaries intact, Colonoscopy 2013, Past Anesthesia/Blood Transfusion Reactions: No Reported Reaction Past Psychological History: Anxiety, Bipolar, Depression Smoking Status: Current every day smoker Past Alcohol Use History: Occasional Past Drug Use History: Cocaine - Past Family History Mother Family Medical History: Cancer, Hypertension Additional Family Medical History / Comment(s): neuropathy; Mother had Colon Cancer Father Family Medical History: No Reported History PAST PSYCHIATRIC HISTORY: This is her third admission to this psychiatric unit. The last was in February 2007. The 2 prior hospitalizations were related to depression and suicide attempt by overdose of medications. She has been meeting with a private psychiatrist, Pollo Dougherty, for the last "6 months to 1 year" for the treatment of her bipolar illness. Her current psychotropic medications include Depakote 500 mg twice a day, Xanax 0.5 mg by mouth twice a day and Ambien 10 mg at bedtime. PAST MEDICAL HISTORY: She history of chronic back pain, a peripheral neuropathy, COPD. She stated that she is prescribed [place] 5-325 2-3 times a day as well as Neurontin 800 mg 3 times a day for pain. ALLERGIES: NO KNOWN DRUG ALLERGIES. SUBSTANCE USE HISTORY: She has a history of use of drugs including cocaine, methamphetamine, mescaline, hallucinogenic mushrooms, LSD, marijuana and alcohol. Her drug of choice is cocaine. She started using cocaine when she was 27 or 28 years old. As a result of cocaine use she incurred serious legal problems with multiple felony charges in 2005. She received residential substance abuse treatment ([facility]) while on probation and has been abstinent from cocaine until the recent relapse. FAMILY PSYCHIATRIC/SUBSTANCE USE HISTORY: She alleged that the most of her family have alcohol or mental health problems. Both her brothers have alcohol use problems. LEGAL HISTORY: She is not currently on probation, parole or has pending charges. She stated that she was arrested when her "home was raided" and charged with maintaining a drug house, possession of controlled substance and possession of stolen property in 2005. She was convicted of two the charges and sentenced to 2 years probation. On the [facility] court docket she has multiple misdemeanors including to domestic violence charges, assault charges and assault and addition to multiple moving vehicle violations. SOCIAL HISTORY: She was born in [facility] and raised in [place]. She has one older and one younger brother. Her parents when she was 8 years old. She was raised by her mother. She graduated from high school and received a bachelor's degree from [employer] in business administration. She stated that she was unable to find work in her field of study because of her felony convictions. She has 1 daughter who is under the custody of her mother. She was . She lives with her boyfriend. She has no income and is supported by her boyfriend. Result diagrams: 05/26/18 20:00 05/26/18 21:00 Lab Results 05/26/18 05/26/18 05/26/18 Range/Units 20:00 20:00 21:00 WBC 9.2 (3.8-10.6) k/uL RBC 5.02 (3.80-5.40) m/uL Hgb 15.1 (11.4-16.0) gm/dL Hct 48.2 H (34.0-46.0) % MCV 95.9 (80.0-100.0) fL MCH 30.1 (25.0-35.0) pg MCHC 31.4 (31.0-37.0) g/dL RDW 14.6 (11.5-15.5) % Plt Count 181 (150-450) k/uL Neutrophils % 72 % Lymphocytes % 20 % Monocytes % 4 % Eosinophils % 3 % Basophils % 1 % Neutrophils # 6.6 (1.3-7.7) k/uL Lymphocytes # 1.8 (1.0-4.8) k/uL Monocytes # 0.4 (0-1.0) k/uL Eosinophils # 0.3 (0-0.7) k/uL Basophils # 0.1 (0-0.2) k/uL Sodium 139 (137-145) mmol/L Potassium 3.5 (3.5-5.1) mmol/L Chloride 104 (98-107) mmol/L Carbon Dioxide 29 (22-30) mmol/L Anion Gap 6 mmol/L BUN 10 (7-17) mg/dL Creatinine 0.73 (0.52-1.04) mg/dL Est GFR (CKD-EPI)AfAm >90 (>60 ml/min/1.73 sqM) Est GFR (CKD-EPI)NonAf >90 (>60 ml/min/1.73 sqM) Glucose 125 H (74-99) mg/dL Calcium 8.9 (8.4-10.2) mg/dL Total Bilirubin 0.4 (0.2-1.3) mg/dL AST 24 (14-36) U/L ALT 56 H (9-52) U/L Alkaline Phosphatase 55 (38-126) U/L Total Protein 6.0 L (6.3-8.2) g/dL Albumin 3.6 (3.5-5.0) g/dL Urine Color Yellow Urine Appearance Clear (Clear) Urine pH 6.5 (5.0-8.0) Ur Specific [place] 1.010 (1.001-1.035) Urine Protein Negative (Negative) Urine Glucose (UA) Negative (Negative) Urine Ketones Negative (Negative) Urine Blood Negative (Negative) Urine Nitrite Negative (Negative) Urine Bilirubin Negative (Negative) Urine Urobilinogen <2.0 (<2.0) mg/dL Ur Leukocyte Esterase Negative (Negative) Urine HCG, Qual (Not Detectd) Salicylates <1.0 mg/dL Urine Opiates Screen Detected H (NotDetected) Ur Oxycodone Screen Not Detected (NotDetected) Urine Methadone Screen Not Detected (NotDetected) Ur Propoxyphene Screen Not Detected (NotDetected) Acetaminophen <10.0 ug/mL Ur Barbiturates Screen Not Detected (NotDetected) U Tricyclic Antidepress Detected H (NotDetected) Ur Phencyclidine Scrn Not Detected (NotDetected) Ur Amphetamines Screen Detected H (NotDetected) U Methamphetamines Scrn Detected H (NotDetected) U Benzodiazepines Scrn Not Detected (NotDetected) Urine Cocaine Screen Detected H (NotDetected) U Marijuana (THC) Screen Not Detected (NotDetected) Serum Alcohol <10 mg/dL 05/26/18 Range/Units 21:16 WBC (3.8-10.6) k/uL RBC (3.80-5.40) m/uL Hgb (11.4-16.0) gm/dL Hct (34.0-46.0) % MCV (80.0-100.0) fL MCH (25.0-35.0) pg MCHC (31.0-37.0) g/dL RDW (11.5-15.5) % Plt Count (150-450) k/uL Neutrophils % % Lymphocytes % % Monocytes % % Eosinophils % % Basophils % % Neutrophils # (1.3-7.7) k/uL Lymphocytes # (1.0-4.8) k/uL Monocytes # (0-1.0) k/uL Eosinophils # (0-0.7) k/uL Basophils # (0-0.2) k/uL Sodium (137-145) mmol/L Potassium (3.5-5.1) mmol/L Chloride (98-107) mmol/L Carbon Dioxide (22-30) mmol/L Anion Gap mmol/L BUN (7-17) mg/dL Creatinine (0.52-1.04) mg/dL Est GFR (CKD-EPI)AfAm (>60 ml/min/1.73 sqM) Est GFR (CKD-EPI)NonAf (>60 ml/min/1.73 sqM) Glucose (74-99) mg/dL Calcium (8.4-10.2) mg/dL Total Bilirubin (0.2-1.3) mg/dL AST (14-36) U/L ALT (9-52) U/L Alkaline Phosphatase (38-126) U/L Total Protein (6.3-8.2) g/dL Albumin (3.5-5.0) g/dL Urine Color Urine Appearance (Clear) Urine pH (5.0-8.0) Ur Specific [place] (1.001-1.035) Urine Protein (Negative) Urine Glucose (UA) (Negative) Urine Ketones (Negative) Urine Blood (Negative) Urine Nitrite (Negative) Urine Bilirubin (Negative) Urine Urobilinogen (<2.0) mg/dL Ur Leukocyte Esterase (Negative) Urine HCG, Qual Not Detected (Not Detectd) Salicylates mg/dL Urine Opiates Screen (NotDetected) Ur Oxycodone Screen (NotDetected) Urine Methadone Screen (NotDetected) Ur Propoxyphene Screen (NotDetected) Acetaminophen ug/mL Ur Barbiturates Screen (NotDetected) U Tricyclic Antidepress (NotDetected) Ur Phencyclidine Scrn (NotDetected) Ur Amphetamines Screen (NotDetected) U Methamphetamines Scrn (NotDetected) U Benzodiazepines Scrn (NotDetected) Urine Cocaine Screen (NotDetected) U Marijuana (THC) Screen (NotDetected) Serum Alcohol mg/dL Musculoskeletal Examination - Abnormal/Involuntary Movements: [ spasm] Strength: [greater than antigravity (greater than/equal to 3/5) in all extremities, weakness:] Muscle Tone: [no impairment] Gait: [grossly normal wide-based] Station: [grossly normal, unsteady] : Mental Status Examination - General Appearance: [ disheveled, bizarre, appears older than stated age Speech/Language: slow, rapid, expressive, soft Attitude/Behavior: [guarded, irritable, withdrawn, indifferent, other] Mood: [depressed, , anxious, irritable, angry Affect: [ incongruent, labile, blunted constricted] Orientation: [time, person, place situation] Thought Content: [somatic delusions, obsessions, phobias, other] Risk Factors: [admitted suicidal (ideations, plan), and/or Homicidal (ideations, plan), other] Perception: [wnl, denies hallucinations (auditory, visual, tactile), other] Thought Processes: [ concrete, circumstantial, tangential] Concentration/Attention Span: [wnl] [Per observation and interview with the patient] Recent Memory: [wnl 2 out of 3 in 3 minutes] Remote Memory: [wnl] [past events, as related history] Intelligence: [below average] [based on history, based on vocabulary, syntax, grammar, and content] Judgement: [ fair] [per patient's behavior/history of present illness] Insight: [ fair [understanding severity of illness/history of present illness] Admitting Diagnosis: [bipolar depressed] Patient Strengths - Steady employment/financial stability: [x] Housing stability: [x] Patient Limitations: [medication, non-compliance lack of social supports] Initial Plan of Care: [admit voluntary medicine, psychiatry, nursing staff, social work and occupational to be integrated in [facility] therapy. A thorough biopsychosocial evaluation to be completed. 15 minute checks and usual safety protocol for the [address] [place] [id number]. medications are prolixin, neurontin, effexor and mobic.] Estimated Length of Stay: [7 days] Initial Discharge Plan: [home, [facility], referred to therapist Prognosis: [ fair] Justification for Inpatient Hospitalization - [ agitation, anxiety, depression resulting in significant loss of functioning.] [Dangerous to self, others, or property with need for controlled environment.] [Emotional or behavioral conditions and complications requiring 24 hour medical and nursing care.] [Need for special drug therapy, or other therapeutic program requiring continuous hospitalization.] [Failure of social or occupational functioning.] [Inability to meet basic life and health needs.] (1) Bipolar disorder Current Visit: No Status: Acute Priority: Medium Code(s): F31.9 - BIPOLAR DISORDER, UNSPECIFIED SNOMED Code(s): 19996516 Time with Patient: Less than 30
[2018-05-31] MEDS: ZIPRASIDONE 20 MG VIAL IM PRN (14:08)
[2018-05-31] MEDS: GABAPENTIN 400 MG CAP PO SCH ×2 (15:33→20:40)
[2018-05-31] MEDS: ACETAMINOPHEN TAB 325 MG TAB PO PRN (17:32)
[2018-05-31 19:09] LABS: Hemoglobin A1C 5.4 % (4.0-6.0)
--- NOTE | 2018-05-31 19:42 | P.HPIM ---
History of Present Illness H&P Date: 05/31/18 (multiple substance abuse, suicide attempt.) Chief Complaint: suicidal attempt with Flexeril more than 200 tablet protein by the police. history of present illness: Patient presented to the emergency room by the police with suicidal attempt swallowing more than 200 tablet of Flexeril muscle relaxant each tablet is 5 mg. After her argument with her boyfriend. As he was threatened her to leave. 6 years old white female , she had 1 daughter, she has been with the aggressive behavior, history of psychiatric disorder has been followed by [facility] however she has been noncompliant, she has been in aggressive management in the past, she had a several attempt of suicidal, the current time is the number for and she had a previous attempt. On her third attempt they intubated her and the send her to [facility] for the hospital and subsequently they had any for the send her to the psychiatric hospital and this information was obtained from her mother as the patient at the time is very aggressive very inappropriate cursing. I was called to see the patient because of her third toe and her right foot was bruised under the nail after Dr. Ureña take the nail off because of the fungal infection. And she claimed that it has pain, she also stated that she had a back pain with the desk and she wants her pain killer however patient is having attachment to the pain medication. The psychiatric floor and Dr. Earl started her Anderson on medication and the Neurontin for the assumed paresthesia with neuropathy. Patient however no previous records or definite testing to indicated that. She used to be on multiple medication and multiple pain color as well as multiple psychiatric medication. Today after the discussion with the patient and her request of pain medicine is unclear etiology headache did consult the pain management in patient to evaluate the patient and decided to treat. And may need a pain clinical applications manager or the hospital. I am covering Dr. Dominguez her PCP initially and and she is beyond all her expertise for pain treatment. On I don't see that she has any other medical problem other than morbid obesity with a BMI 59.5. And psychiatric disorder bipolar mixed depression and anxiety and complaining of pain which is unclear etiology. On examining the patient today her vital sign: Temperature 97.8 pulse 85-109 and respiratory rate is 20/m nonlabored her blood pressure 108/70 with a mean blood pressure 82 and the pulse ox 97% on room air. During the hospital course patient admitted from the ER to the phototypesetting equipment monitor floor and was given only Ativan IV according the poison control had the discussed between the ER and the poison control and started on IV fluid as well at that he subsequently prior to transfer to the psych unit, patient had a shower and the she was given Tylenol and wasn't really complaining of any pain. As patient finished her detox and no need for for further monitoring and also no for for further IV patient transferred to psych mental health here. Hold her previous medication because wasn't effective has been held until the psychiatrist start to treat her. On today's exam: Patient conscious alert oriented ambulatory requesting pain medication. HEENT negative neck was supple no JVD no thyromegaly no lymphadenopathy trachea midline. Chest was clear to auscultation and percussion no wheezes no rhonchi's. Heart regular sinus rhythm. PMI in the fifth intercostal space normal S1-S2 no gallop. Abdomen morbidly obese with positive bowel sounds no tenderness in the 4 quadrants and her abdomen covering her thighs from the obesity. Extremities she had previous removal of the nail by Dr. Ureña and this one was recently done before these event and his bruised secondary to the elbow chicken but no evidence of infection with the palpation there is no evidence of tenderness or pain and the the treatments only until it heals on its own with the applying Band-Aid. The us Assessment: #1 multiple drug abuse and substance abuse. #2 suicidal attempt #3 morbid obesity. #4 medically cleared.#5 bipolar disorder, anxiety, depression. Plan: Discussed with the patient that I will be afraid to give her any pain medication, and we will be consulting the inpatient pain clinic. With the underlying strong history of substance abuse and suicidal attempt. Past Medical History Past Medical History: Asthma, COPD, Fibromyalgia, GERD/Reflux, Hypertension, Musculoskeletal Disorder, Osteoarthritis (OA) Additional Past Medical History / Comment(s): Neuropathy feet/legs and hands, bulging discs, chronic low back pain, pt needs bilateral total knees, past cellulitis bilateral lower legs, unsteady gait, lindsey fever as a child. History of Any Multi-Drug Resistant Organisms: None Reported Past Surgical History: Hysterectomy, Orthopedic Surgery, Tubal Ligation Additional Past Surgical History / Comment(s): Right knee arthroscopic surg x3; LEEP procedure, partial hysterectomy 2009/ovaries intact, colonoscopy 2013, Past Anesthesia/Blood Transfusion Reactions: No Reported Reaction Past Psychological History: Anxiety, Bipolar, Depression Additional Psychological History / Comment(s): PT lethargic. Mother states pt lived with her mother and father up until May 22 when she asked to have her fiancee moved it and they refused her. She then went to live with some friends. Mother states pt has been "off the rails" for the past 3 weeks, ever since she applied and recieved her SSI money. Mother states pt has spent about 8,000 dollars on drugs. Mother states she is aware of pt using crack and cocaine if she can get ahold of it. Mother states she is not aware of other drug use but that there could be. Pts [facility] was + for cocaine and meth amphetamine. Pt goes to [facility]. Smoking Status: Current every day smoker Past Alcohol Use History: Occasional Additional Past Alcohol Use History / Comment(s): Pt. admits to occasional ETOH use. BAT 0. Past Drug Use History: Cocaine, Marijuana, Methamphetamine Additional Drug Use History / Comment(s): hx. of Mescaline and Acid in high school; Started cocaine at 15 y.o. and states last used 2 months ago; MJ last time 1 yr. ago. UDS + Methamphetamines-Pt. denies drug use at this time. - Past Family History Mother Family Medical History: Cancer, Hypertension Additional Family Medical History / Comment(s): neuropathy; Mother had Colon Cancer Father Family Medical History: No Reported History Additional Family Medical History / Comment(s): Father is bipolar Medications and Allergies Home Medications Medication Instructions Recorded Confirmed Type DULoxetine HCL [Cymbalta] 60 mg PO BID 05/30/18 05/30/18 History Furosemide [Lasix] 20 mg PO DAILY 05/30/18 05/30/18 History Gabapentin 800 mg PO TID 05/30/18 05/30/18 History Omeprazole 20 mg PO DAILY 05/30/18 05/30/18 History Prazosin [Minipress] 1 mg PO BID 05/30/18 05/30/18 History Spironolactone [Aldactone] 25 mg PO BID 05/30/18 05/30/18 History busPIRone HCL 15 mg PO BID 05/30/18 05/30/18 History guaiFENesin-DM 600/30MG [Mucinex 1 tab PO Q12H 05/30/18 05/30/18 History Dm] traMADol HCL [Ultram] 50 mg PO Q6H PRN 05/30/18 05/30/18 History traZODone HCL [Desyrel] 150 mg PO DAILY 05/30/18 05/30/18 History Allergies Allergy/AdvReac Type Severity Reaction Status Date / Time lithium Allergy Vomiting Verified 05/31/18 09:34 pregabalin [From Lyrica] Allergy Vomiting Verified 05/31/18 09:34 topiramate [From Topamax] Allergy Abdominal Verified 05/31/18 09:34 Pain latex AdvReac Itching Verified 05/31/18 09:34 Physical Exam Vitals: Vital Signs Temp Pulse Pulse Resp BP Pulse Ox 05/31/18 08:59 97.8 F 109 H 20 108/70 97 05/30/18 22:50 85 16 125/97 96 05/30/18 21:15 90 20 142/75 Results Labs: Abnormal Lab Results - Last 24 Hours (Table) 05/31/18 Range/Units 08:41 Triglycerides 196 H (<150) mg/dL Thrombosis Risk Factor Assmnt - Choose All That Apply Any of the Below Risk Factors Present?: Yes Each Factor Represents 1 point: Obesity (BMI >25) Other Risk Factors: No Other congenital or acquired thrombophilia - If yes, enter type in comment: No Thrombosis Risk Factor Assessment Total Risk Factor Score: 1 Thrombosis Risk Factor Assessment Level: Low Risk
[2018-05-31] MEDS: MELOXICAM 7.5 MG TAB PO SCH (20:40)
[2018-06-01] MEDS: LORazepam 1 MG TAB PO PRN ×2 (02:37→09:22)
[2018-06-01 07:05] VITALS: BP 116/80; PULSE 85; RESP 16; TEMP 97.6
[2018-06-01] MEDS: MELOXICAM 7.5 MG TAB PO SCH (09:22)
[2018-06-01] MEDS: GABAPENTIN 400 MG CAP PO SCH (09:22)
[2018-06-01] MEDS: NICOTINE 14MG/24HR PATCH TRANSDERM SCH (09:26)
--- NOTE | 2018-06-01 11:37 | P.DS ---
Providers Date of admission: 05/30/18 15:08 Expected date of discharge: 06/01/18 Attending physician: Mathew Earl DO Consults: 05/30/18 15:25 Consult Physician Routine Consulting Provider: Rohan Ulloa Consult Reason/Comments: medical management Do you want consulting provider notified?: Yes, Notify in am Primary care physician: Gokul Dominguez - Discharge Diagnosis(es) (1) Bipolar disorder Allergies Allergy/AdvReac Type Severity Reaction Status Date / Time lithium Allergy Vomiting Verified 05/31/18 09:34 pregabalin [From Lyrica] Allergy Vomiting Verified 05/31/18 09:34 topiramate [From Topamax] Allergy Abdominal Verified 05/31/18 09:34 Pain latex AdvReac Itching Verified 05/31/18 09:34 Vital Signs Temp 97.8 F 05/31/18 08:59 Pulse 109 H 05/31/18 08:59 Resp 20 05/31/18 08:59 BP 108/70 05/31/18 08:59 Pulse Ox 97 05/31/18 08:59 Intake & Output 05/30/18 05/31/18 05/31/18 18:59 06:59 18:59 Weight 147.6 kg Assessment and Plan Assessment: IDENTIFYING DATA: A 42-year-old female patient HPI: Patient admitted to the medical floor [facility] status post overdose. She reports that she took approximately 200 pills of Flexeril all at once. She admits that she had thoughts of suicide at this time. When I ask her any triggers to the episode she states that she is told that she doesn't do things right. She has been depressed daily lately. She does admit to anxiety and being a worrier. Her boyfriend by history with him the other room. He states that she threw the bottle at him and roommates called 911. Her boyfriend is present during the evaluation with the patient's agreeable. Patient is a 42-year-old female presenting to the emergency department with police escort for reported overdose. Patient is agitated. Patient reportedly took a bottle of Flexeril. Patient reportedly did this for suicidal ideation. Patient is not offering significant history at this point. Unclear if there is history of previous symptoms similarly. Home Medications Medication Instructions Recorded Confirmed Furosemide [Lasix] 20 mg PO DAILY 03/08/17 05/26/18 Spironolactone [Aldactone] 25 mg PO BID 03/08/17 05/26/18 traMADol HCL [Ultram] 50 mg PO Q6H 03/08/17 05/26/18 Omeprazole [PriLOSEC] 20 mg PO DAILY 10/25/17 05/26/18 Prazosin [Minipress] 1 mg PO BID 10/25/17 05/26/18 Gabapentin 800 mg PO TID 05/26/18 05/26/18 traZODone HCL [Desyrel] 150 mg PO DAILY 05/26/18 05/26/18 Previous Rx's Medication Instructions Recorded DULoxetine HCL [Cymbalta] 60 mg PO BID #60 capsule. 03/11/17 Allergies Allergy/AdvReac Type Severity Reaction Status Date / Time lithium Allergy Vomiting Verified 05/26/18 20:11 pregabalin [From Lyrica] Allergy Vomiting Verified 05/26/18 20:11 topiramate [From Topamax] Allergy Abdominal Verified 05/26/18 20:11 Pain latex AdvReac Itching Verified 05/26/18 20:11 Past Medical History Past Medical History: Asthma, GERD/Reflux, Musculoskeletal Disorder Additional Past Medical History / Comment(s): Neuropathy, Asthma, Torn R Rotator cuff, bulging discs, bilat. knee joints need replacement, History of Any Multi-Drug Resistant Organisms: None Reported Past Surgical History: Hysterectomy, Tubal Ligation Additional Past Surgical History / Comment(s): Right knee surg x3; Partial hysterectomy 2009/ovaries intact, Colonoscopy 2013, Past Anesthesia/Blood Transfusion Reactions: No Reported Reaction Past Psychological History: Anxiety, Bipolar, Depression Smoking Status: Current every day smoker Past Alcohol Use History: Occasional Past Drug Use History: Cocaine - Past Family History Mother Family Medical History: Cancer, Hypertension Additional Family Medical History / Comment(s): neuropathy; Mother had Colon Cancer Father Family Medical History: No Reported History PAST PSYCHIATRIC HISTORY: This is her third admission to this psychiatric unit. The last was in February 2007. The 2 prior hospitalizations were related to depression and suicide attempt by overdose of medications. She has been meeting with a private psychiatrist, Pollo Dougherty, for the last "6 months to 1 year" for the treatment of her bipolar illness. Her current psychotropic medications include Depakote 500 mg twice a day, Xanax 0.5 mg by mouth twice a day and Ambien 10 mg at bedtime. PAST MEDICAL HISTORY: She history of chronic back pain, a peripheral neuropathy, COPD. She stated that she is prescribed [place] 5-325 2-3 times a day as well as Neurontin 800 mg 3 times a day for pain. ALLERGIES: NO KNOWN DRUG ALLERGIES. SUBSTANCE USE HISTORY: She has a history of use of drugs including cocaine, methamphetamine, mescaline, hallucinogenic mushrooms, LSD, marijuana and alcohol. Her drug of choice is cocaine. She started using cocaine when she was 27 or 28 years old. As a result of cocaine use she incurred serious legal problems with multiple felony charges in 2005. She received residential substance abuse treatment ([facility]) while on probation and has been abstinent from cocaine until the recent relapse. FAMILY PSYCHIATRIC/SUBSTANCE USE HISTORY: She alleged that the most of her family have alcohol or mental health problems. Both her brothers have alcohol use problems. LEGAL HISTORY: She is not currently on probation, parole or has pending charges. She stated that she was arrested when her "home was raided" and charged with maintaining a drug house, possession of controlled substance and possession of stolen property in 2005. She was convicted of two the charges and sentenced to 2 years probation. On the [facility] court docket she has multiple misdemeanors including to domestic violence charges, assault charges and assault and addition to multiple moving vehicle violations. SOCIAL HISTORY: She was born in [place] and raised in [place]. She has one older and one younger brother. Her parents when she was 8 years old. She was raised by her mother. She graduated from high school and received a bachelor's degree from [employer] in business administration. She stated that she was unable to find work in her field of study because of her felony convictions. She has 1 daughter who is under the custody of her mother. She was . She lives with her boyfriend. She has no income and is supported by her boyfriend. Result diagrams: 05/26/18 20:00 05/26/18 21:00 Lab Results 05/26/18 05/26/18 05/26/18 Range/Units 20:00 20:00 21:00 WBC 9.2 (3.8-10.6) k/uL RBC 5.02 (3.80-5.40) m/uL Hgb 15.1 (11.4-16.0) gm/dL Hct 48.2 H (34.0-46.0) % MCV 95.9 (80.0-100.0) fL MCH 30.1 (25.0-35.0) pg MCHC 31.4 (31.0-37.0) g/dL RDW 14.6 (11.5-15.5) % Plt Count 181 (150-450) k/uL Neutrophils % 72 % Lymphocytes % 20 % Monocytes % 4 % Eosinophils % 3 % Basophils % 1 % Neutrophils # 6.6 (1.3-7.7) k/uL Lymphocytes # 1.8 (1.0-4.8) k/uL Monocytes # 0.4 (0-1.0) k/uL Eosinophils # 0.3 (0-0.7) k/uL Basophils # 0.1 (0-0.2) k/uL Sodium 139 (137-145) mmol/L Potassium 3.5 (3.5-5.1) mmol/L Chloride 104 (98-107) mmol/L Carbon Dioxide 29 (22-30) mmol/L Anion Gap 6 mmol/L BUN 10 (7-17) mg/dL Creatinine 0.73 (0.52-1.04) mg/dL Est GFR (CKD-EPI)AfAm >90 (>60 ml/min/1.73 sqM) Est GFR (CKD-EPI)NonAf >90 (>60 ml/min/1.73 sqM) Glucose 125 H (74-99) mg/dL Calcium 8.9 (8.4-10.2) mg/dL Total Bilirubin 0.4 (0.2-1.3) mg/dL AST 24 (14-36) U/L ALT 56 H (9-52) U/L Alkaline Phosphatase 55 (38-126) U/L Total Protein 6.0 L (6.3-8.2) g/dL Albumin 3.6 (3.5-5.0) g/dL Urine Color Yellow Urine Appearance Clear (Clear) Urine pH 6.5 (5.0-8.0) Ur Specific [place] 1.010 (1.001-1.035) Urine Protein Negative (Negative) Urine Glucose (UA) Negative (Negative) Urine Ketones Negative (Negative) Urine Blood Negative (Negative) Urine Nitrite Negative (Negative) Urine Bilirubin Negative (Negative) Urine Urobilinogen <2.0 (<2.0) mg/dL Ur Leukocyte Esterase Negative (Negative) Urine HCG, Qual (Not Detectd) Salicylates <1.0 mg/dL Urine Opiates Screen Detected H (NotDetected) Ur Oxycodone Screen Not Detected (NotDetected) Urine Methadone Screen Not Detected (NotDetected) Ur Propoxyphene Screen Not Detected (NotDetected) Acetaminophen <10.0 ug/mL Ur Barbiturates Screen Not Detected (NotDetected) U Tricyclic Antidepress Detected H (NotDetected) Ur Phencyclidine Scrn Not Detected (NotDetected) Ur Amphetamines Screen Detected H (NotDetected) U Methamphetamines Scrn Detected H (NotDetected) U Benzodiazepines Scrn Not Detected (NotDetected) Urine Cocaine Screen Detected H (NotDetected) U Marijuana (THC) Screen Not Detected (NotDetected) Serum Alcohol <10 mg/dL 05/26/18 Range/Units 21:16 WBC (3.8-10.6) k/uL RBC (3.80-5.40) m/uL Hgb (11.4-16.0) gm/dL Hct (34.0-46.0) % MCV (80.0-100.0) fL MCH (25.0-35.0) pg MCHC (31.0-37.0) g/dL RDW (11.5-15.5) % Plt Count (150-450) k/uL Neutrophils % % Lymphocytes % % Monocytes % % Eosinophils % % Basophils % % Neutrophils # (1.3-7.7) k/uL Lymphocytes # (1.0-4.8) k/uL Monocytes # (0-1.0) k/uL Eosinophils # (0-0.7) k/uL Basophils # (0-0.2) k/uL Sodium (137-145) mmol/L Potassium (3.5-5.1) mmol/L Chloride (98-107) mmol/L Carbon Dioxide (22-30) mmol/L Anion Gap mmol/L BUN (7-17) mg/dL Creatinine (0.52-1.04) mg/dL Est GFR (CKD-EPI)AfAm (>60 ml/min/1.73 sqM) Est GFR (CKD-EPI)NonAf (>60 ml/min/1.73 sqM) Glucose (74-99) mg/dL Calcium (8.4-10.2) mg/dL Total Bilirubin (0.2-1.3) mg/dL AST (14-36) U/L ALT (9-52) U/L Alkaline Phosphatase (38-126) U/L Total Protein (6.3-8.2) g/dL Albumin (3.5-5.0) g/dL Urine Color Urine Appearance (Clear) Urine pH (5.0-8.0) Ur Specific [place] (1.001-1.035) Urine Protein (Negative) Urine Glucose (UA) (Negative) Urine Ketones (Negative) Urine Blood (Negative) Urine Nitrite (Negative) Urine Bilirubin (Negative) Urine Urobilinogen (<2.0) mg/dL Ur Leukocyte Esterase (Negative) Urine HCG, Qual Not Detected (Not Detectd) Salicylates mg/dL Urine Opiates Screen (NotDetected) Ur Oxycodone Screen (NotDetected) Urine Methadone Screen (NotDetected) Ur Propoxyphene Screen (NotDetected) Acetaminophen ug/mL Ur Barbiturates Screen (NotDetected) U Tricyclic Antidepress (NotDetected) Ur Phencyclidine Scrn (NotDetected) Ur Amphetamines Screen (NotDetected) U Methamphetamines Scrn (NotDetected) U Benzodiazepines Scrn (NotDetected) Urine Cocaine Screen (NotDetected) U Marijuana (THC) Screen (NotDetected) Serum Alcohol mg/dL Musculoskeletal Examination - Abnormal/Involuntary Movements: [ spasm] Strength: [greater than antigravity (greater than/equal to 3/5) in all extremities, weakness:] Muscle Tone: [no impairment] Gait: [grossly normal wide-based] Station: [grossly normal, unsteady] : Mental Status Examination - General Appearance: [ disheveled, bizarre, appears older than stated age Speech/Language: slow, rapid, expressive, soft Attitude/Behavior: [guarded, irritable, withdrawn, indifferent, other] Mood: [depressed, , anxious, irritable, angry Affect: [ incongruent, labile, blunted constricted] Orientation: [time, person, place situation] Thought Content: [somatic delusions, obsessions, phobias, other] Risk Factors: [admitted suicidal (ideations, plan), and/or Homicidal (ideations, plan), other] Perception: [wnl, denies hallucinations (auditory, visual, tactile), other] Thought Processes: [ concrete, circumstantial, tangential] Concentration/Attention Span: [wnl] [Per observation and interview with the patient] Recent Memory: [wnl 2 out of 3 in 3 minutes] Remote Memory: [wnl] [past events, as related history] Intelligence: [below average] [based on history, based on vocabulary, syntax, grammar, and content] Judgement: [ fair] [per patient's behavior/history of present illness] Insight: [ fair [understanding severity of illness/history of present illness] Admitting Diagnosis: [bipolar depressed] Current Visit: No Status: Acute Priority: Low Hospital Course: Plan of Care: [admit voluntary medicine, psychiatry, nursing staff, social work and occupational to be integrated in [facility] and milieu therapy. A thorough bio psychosocial evaluation to be completed. 15 minute checks and usual safety protocol for the [address] [place] [id number]. medications are prolixin, neurontin, and mobic. Mental status examination time of discharge on 06/01/2018 11:36 AM: The patient presents alert, pleasant, and cooperative. There calmly seated without any agitated behavior. [She] reports that [her] mood is good. Affect is congruent and euthymic. [She] deny having any suicidal or homicidal ideation intent or plan. [She] denies any auditory or visual hallucinations. There is no evidence of any delusional thought content. [Her] thought process is linear and goal-directed. [Her] speech is fluent and nonpressured. [Her] memory and concentration is grossly intact for the purposes of this session. Patient Condition at Discharge: Stable Plan - Discharge Summary Discharge Rx Participant: No New Discharge Prescriptions: New Meloxicam [Mobic] 7.5 mg PO BID 30 Days #60 tab Gabapentin [Neurontin] 800 mg PO TID 30 Days #270 cap fluPHENAZine [Prolixin] 7.5 mg PO 2100 30 Days #45 tab Continue Omeprazole 20 mg PO DAILY Spironolactone [Aldactone] 25 mg PO BID Furosemide [Lasix] 20 mg PO DAILY guaiFENesin-DM 600/30MG [Mucinex Dm] 1 tab PO Q12H Prazosin [Minipress] 1 mg PO BID Discontinued Gabapentin 800 mg PO TID traZODone HCL [Desyrel] 150 mg PO DAILY DULoxetine HCL [Cymbalta] 60 mg PO BID traMADol HCL [Ultram] 50 mg PO Q6H PRN PRN Reason: Pain busPIRone HCL 15 mg PO BID Discharge Medication List Furosemide [Lasix] 20 mg PO DAILY 05/30/18 [History] Omeprazole 20 mg PO DAILY 05/30/18 [History] Prazosin [Minipress] 1 mg PO BID 05/30/18 [History] Spironolactone [Aldactone] 25 mg PO BID 05/30/18 [History] guaiFENesin-DM 600/30MG [Mucinex Dm] 1 tab PO Q12H 05/30/18 [History] Gabapentin [Neurontin] 800 mg PO TID 30 Days #270 cap 06/01/18 [Rx] Meloxicam [Mobic] 7.5 mg PO BID 30 Days #60 tab 06/01/18 [Rx] fluPHENAZine [Prolixin] 7.5 mg PO 2100 30 Days #45 tab 06/01/18 [Rx] Patient Instructions/Handouts: Depression (DC), Suicide Prevention (DC) Activity/Diet/Wound Care/Special Instructions: Activity and Diet as tolerated. Avoid the use of street drugs and alcohol. Take all medications as prescribed, when you are in need of refills contact your medical doctor or psychiatrist. Please go to all scheduled outpatient appointments for aftercare treatment. If symptoms return or worsen you can call the crisis line @ and/or return to the nearest emergency room for evaluation. Discharge Disposition: HOME SELF-CARE
[2018-06-01] MEDS: ACETAMINOPHEN TAB 325 MG TAB PO PRN (12:35)
--- NOTE | 2018-06-01 15:08 | P.PAINCN ---
History of Present Illness - Reason for Consult Consult date: 06/01/18 - History of Present Illness Mr. Paniagua is a 42-year-old female who was admitted to Hospital psychiatric complaints centimeters suicidal ideations. She apparently attempted suicide by swallowing reported 200 tablets of Flexeril. We will consult in the hospital because the patient is insisting on having her pain medications. She reports that she is on pain medications at home and wants some because of her intractab le pain. She reports pain in her back as well as headaches. She reports pain in her left leg. She also reports pain in her right leg. She had a toenail removed secondary fungus and has pain in that area as well. She has a history of substance abuse and suicidal attempts. I did review her maps and shows that her primary care physician Dr. Adan is writing her for tramadol 50 mg tablets 4 times a day. She last filled the prescription on 05/24/2018. Past Medical History Past Medical History: Asthma, COPD, Fibromyalgia, GERD/Reflux, Hypertension, Musculoskeletal Disorder, Osteoarthritis (OA) Additional Past Medical History / Comment(s): Neuropathy feet/legs and hands, bulging discs, chronic low back pain, pt needs bilateral total knees, past cellulitis bilateral lower legs, unsteady gait, lindsey fever as a child. History of Any Multi-Drug Resistant Organisms: None Reported Past Surgical History: Hysterectomy, Orthopedic Surgery, Tubal Ligation Additional Past Surgical History / Comment(s): Right knee arthroscopic surg x3; LEEP procedure, partial hysterectomy 2009/ovaries intact, colonoscopy 2013, Past Anesthesia/Blood Transfusion Reactions: No Reported Reaction Past Psychological History: Anxiety, Bipolar, Depression Additional Psychological History / Comment(s): PT lethargic. Mother states pt lived with her mother and father up until May 22 when she asked to have her fiancee moved it and they refused her. She then went to live with some friends. Mother states pt has been "off the rails" for the past 3 weeks, ever since she applied and recieved her SSI money. Mother states pt has spent about 8,000 dollars on drugs. Mother states she is aware of pt using crack and cocaine if she can get ahold of it. Mother states she is not aware of other drug use but that there could be. Pts [facility] was + for cocaine and meth amphetamine. Pt goes to [facility]. Smoking Status: Current every day smoker Past Alcohol Use History: Occasional Additional Past Alcohol Use History / Comment(s): Pt. admits to occasional ETOH use. BAT 0. Past Drug Use History: Cocaine, Marijuana, Methamphetamine Additional Drug Use History / Comment(s): hx. of Mescaline and Acid in high school; Started cocaine at 15 y.o. and states last used 2 months ago; MJ last time 1 yr. ago. UDS + Methamphetamines-Pt. denies drug use at this time. - Past Family History Mother Family Medical History: Cancer, Hypertension Additional Family Medical History / Comment(s): neuropathy; Mother had Colon Cancer Father Family Medical History: No Reported History Additional Family Medical History / Comment(s): Father is bipolar Medications and Allergies Home Medications Medication Instructions Recorded Confirmed Type Furosemide [Lasix] 20 mg PO DAILY 05/30/18 05/30/18 History Omeprazole 20 mg PO DAILY 05/30/18 05/30/18 History Prazosin [Minipress] 1 mg PO BID 05/30/18 05/30/18 History Spironolactone [Aldactone] 25 mg PO BID 05/30/18 05/30/18 History guaiFENesin-DM 600/30MG [Mucinex 1 tab PO Q12H 05/30/18 05/30/18 History Dm] Gabapentin [Neurontin] 800 mg PO TID 30 Days #270 cap 06/01/18 Rx Meloxicam [Mobic] 7.5 mg PO BID 30 Days #60 tab 06/01/18 Rx fluPHENAZine [Prolixin] 7.5 mg PO 2100 30 Days #45 tab 06/01/18 Rx Allergies Allergy/AdvReac Type Severity Reaction Status Date / Time lithium Allergy Vomiting Verified 05/31/18 09:34 pregabalin [From Lyrica] Allergy Vomiting Verified 05/31/18 09:34 topiramate [From Topamax] Allergy Abdominal Verified 05/31/18 09:34 Pain latex AdvReac Itching Verified 05/31/18 09:34 Physical Exam Vitals: Vital Signs Temp Pulse Resp BP 06/01/18 02:31 97.6 F 85 16 116/80 General: Awake and alert oriented 3 no distress, morbidly obese Respiratory exam: No audible wheezing no accessory muscle usage Cardiovascular exam: regular rate, palpable bilateral pulses, no lower extremity edema Abdominal exam: No distention nontender to palpation, morbidly obese Cervical spine: Normal alignment, Spurling's negative, facet loading negative Lumbar spine: Loss of lumbar lordosis, normal alignment, tender to palpation over bilateral paraspinal muscles, facet loading is positive bilaterally. Straight leg raise is negative. Pain with movement of the shoulder joints. Pain with movement of the knee and hip joints. Sacroiliac joints: Nontender to palpation, YUMIKO is negative, [place] negative Neuro exam: Normal sensation in bilateral upper extremities, deep tendon reflexes are 2+ bilateral upper extremities. Normal sensation in bilateral lower extremities. Deep tendon reflexes are 2+ in lower extremities Psych exam: Cooperative, appropriate mood Results Labs: Abnormal Lab Results - Last 24 Hours (Table) 05/31/18 Range/Units 08:41 Triglycerides 196 H (<150) mg/dL Assessment and Plan Assessment: #1 substance abuse #2 chronic opioid dependence #3 suicidal #4 chronic depression Plan: After discussion with the patient and her insistence on her pain medication. I do believe that in a controlled setting she may benefit from a small dose of Ultram as she takes at home. This point I would probably recommend 50 mg of Ultram to be given twice a day just avoid any withdrawal symptoms which are unlikely but to avoid a clouded picture of her psychosis this may be a good idea. If and when she is discharged. Do not think she should have a prescription to go home with a she recently filled about 8 days ago according to her maps. She will follow up with her primary care physician for more. PQRS Measure Charge Sheet PQRS Narrative: Smoking Status Current every day smoker Blood Pressure [Right Arm] 116/80 Pain Intensity [None] 0 Pain Intensity [Generalized] 0 Pain Intensity 0 Pain Scale Used Numeric (1 - 10) Scale Used Numeric (1 - 10) Home Medications: Ambulatory Orders Furosemide [Lasix] 20 mg PO DAILY 05/30/18 Omeprazole 20 mg PO DAILY 05/30/18 Prazosin [Minipress] 1 mg PO BID 05/30/18 Spironolactone [Aldactone] 25 mg PO BID 05/30/18 guaiFENesin-DM 600/30MG [Mucinex Dm] 1 tab PO Q12H 05/30/18 Gabapentin [Neurontin] 800 mg PO TID 30 Days #270 cap 06/01/18 Meloxicam [Mobic] 7.5 mg PO BID 30 Days #60 tab 06/01/18 fluPHENAZine [Prolixin] 7.5 mg PO 2100 30 Days #45 tab 06/01/18
[2018-06-01] MEDS ORDERED: GABAPENTIN 400 MG CAP PO SCH (16:00)
== END 2018-06-01 12:35 | disposition home or self-care (01) | DRG 885 ==
LOC: 3MHU 15:08
PROVIDERS: ADMIT Psychiatry & Neurology Psychiatry; ATTEND Psychiatry & Neurology Psychiatry
DX: F31.9 Bipolar disorder, unspecified (principal); R45.851 Suicidal ideations; Z68.43 Body mass index [BMI] 50.0-59.9, adult; F11.20 Opioid dependence, uncomplicated; E11.42 Type 2 diabetes mellitus with diabetic polyneuropathy; E66.01 Morbid (severe) obesity due to excess calories; T48.1X2A Poisoning by skeletal muscle relaxants [neuromuscular blocking agents], intentional self-harm, initial encounter; I10 Essential (primary) hypertension; M79.7 Fibromyalgia; M19.90 Unspecified osteoarthritis, unspecified site; G89.29 Other chronic pain; M54.5 Low back pain; R51 Headache; J44.9 Chronic obstructive pulmonary disease, unspecified; K21.9 Gastro-esophageal reflux disease without esophagitis; Z91.19 Patient's noncompliance with other medical treatment and regimen; F17.210 Nicotine dependence, cigarettes, uncomplicated; Z71.6 Tobacco abuse counseling; Z79.899 Other long term (current) drug therapy; Z91.5 Personal history of self-harm; Z56.0 Unemployment, unspecified; Z90.711 Acquired absence of uterus with remaining cervical stump; Z65.3 Problems related to other legal circumstances; Z86.19 Personal history of other infectious and parasitic diseases; Z98.51 Tubal ligation status; Z88.8 Allergy status to other drugs, medicaments and biological substances; Z91.040 Latex allergy status; Z82.49 Family history of ischemic heart disease and other diseases of the circulatory system; Z80.0 Family history of malignant neoplasm of digestive organs; Z82.0 Family history of epilepsy and other diseases of the nervous system; Z81.1 Family history of alcohol abuse and dependence; Z81.3 Family history of other psychoactive substance abuse and dependence
CPT/HCPCS: 80061; 83036

== ENCOUNTER 2018-08-23 21:31 | Emergency (ER) | payer OTHER ==
[2018-08-23 22:51] LABS: Basophils # (A) 0.1 k/uL (0-0.2); Basophils % (A) 1 %; Eosinophils # (A) 0.3 k/uL (0-0.7); Eosinophils % (A) 3 %; HCT 48.3 % (34.0-46.0); HGB 15.6 gm/dL (11.4-16.0); Lymphocytes % (A) 19 %; MCH 30.3 pg (25.0-35.0); MCHC 32.3 g/dL (31.0-37.0); MCV 93.8 fL (80.0-100.0); Mean Platelet Volume 6.7; Monocytes # (A) 0.4 k/uL (0-1.0); Monocytes % (A) 4 %; Neutrophils # (A) 7.3 k/uL (1.3-7.7); Neutrophils % (A) 71 %; Platelet Count 262 k/uL (150-450); RBC 5.15 m/uL (3.80-5.40); RDW 13.6 % (11.5-15.5); WBC 10.3 k/uL (3.8-10.6)
[2018-08-23 22:54] LABS: Amorphous Sediment,Urine Rare /hpf; Appearance,Urine Cloudy (Clear); Bilirubin,Urine Negative (Negative); Blood,Urine Negative (Negative); Color,Urine Yellow; Glucose,Urine (UA) Negative (Negative); Ketones,Urine Negative (Negative); Leukocyte Esterase,Urine Negative (Negative); Mucus,Urine Few /hpf; Nitrite,Urine Negative (Negative); PH, Urine 6.5 (5.0-8.0); Protein,Urine Trace (Negative); RBC,Urine 1 /hpf (0-5); Specific Gravity,Urine 1.022 (1.001-1.035); Squamous Epithelial Cell,Urine 9 /hpf (0-4); WBC,Urine 4 /hpf (0-5)
--- NOTE | 2018-08-23 23:01 | XR ---
EXAM: XR Abdomen, 2 Views CLINICAL HISTORY: Abdominal pain TECHNIQUE: Frontal view of the abdomen/pelvis with upright view of the abdomen. COMPARISON: No relevant prior studies available. FINDINGS: Intraperitoneal space: No free air. Gastrointestinal tract: Unremarkable. No dilation. Bones/joints: Unremarkable. IMPRESSION: Normal abdominal x-rays.
[2018-08-23 23:03] LABS: ALT 19 U/L (9-52); AST 19 U/L (14-36); African American GFR (CKD) >90 (>60 ml/min/1.73 sqM); Albumin 4.3 g/dL (3.5-5.0); Alkaline Phosphatase 88 U/L (38-126); Amylase 43 U/L (30-110); Anion Gap 11 mmol/L; Blood Urea Nitrogen 9 mg/dL (7-17); Calcium 9.4 mg/dL (8.4-10.2); Carbon Dioxide 25 mmol/L (22-30); Chloride 103 mmol/L (98-107); Glucose 135 mg/dL (74-99); Lipase 46 U/L (23-300); Sodium 139 mmol/L (137-145); Total Bilirubin 0.5 mg/dL (0.2-1.3); Total Protein 7.3 g/dL (6.3-8.2)
[2018-08-23] MEDS ORDERED: MORPHINE SULFATE 4 MG/ML SYRINGE IV STA (23:10)
[2018-08-23 23:17] VITALS: TEMP 97.7
--- NOTE | 2018-08-23 23:59 | CT ---
EXAM: CT Abdomen and Pelvis Without Intravenous Contrast CLINICAL HISTORY: Pain TECHNIQUE: Axial computed tomography images of the abdomen and pelvis without intravenous contrast. CTDI is 0.242, 0.242, 20.5 mGy and DLP is 1509.9 mGy-cm. This CT exam was performed using one or more of the following dose reduction techniques: automated exposure control, adjustment of the mA and/or kV according to patient size, and/or use of iterative reconstruction technique. COMPARISON: CT abdomen and pelvis dated 04/19/2018 FINDINGS: Lung bases: Unremarkable. No mass. No consolidation. ABDOMEN: Liver: Unremarkable. Gallbladder and bile ducts: Unremarkable. Pancreas: Unremarkable. Spleen: Unremarkable. Adrenals: Unremarkable. Kidneys and ureters: Unremarkable. Stomach and bowel: Noninflamed colonic diverticulosis. PELVIS: Appendix: Appendix is unremarkable. Bladder: Unremarkable. Reproductive: Uterus is surgically absent. ABDOMEN and PELVIS: Intraperitoneal space: Unremarkable. Bones/joints: No acute fracture. No dislocation. Soft tissues: Unremarkable. Vasculature: Unremarkable. No abdominal aortic aneurysm. Lymph nodes: Unremarkable. IMPRESSION: No acute findings.
[2018-08-24] MEDS ORDERED: HYDROmorphone 0.5 MG/0.5 ML SYRINGE IVP STA (01:59)
[2018-08-24] MEDS ORDERED: valACYclovir HCL 1,000 MG TABLET PO STA (02:00)
--- NOTE | 2018-08-24 02:09 | ED ---
Abdominal Pain HPI - General Chief Complaint: Abdominal Pain Stated Complaint: Gallbladder pain Time Seen by Provider: 08/23/18 22:03 Source: patient Mode of arrival: ambulatory Limitations: no limitations - History of Present Illness Initial Comments: This patient is a 42-year-old woman presenting with pain to the right upper quadrant of the abdomen she states indicating the inframammary area as well. Has been going on approximately 7-10 days. She states that there may be some correlation with food that does not appear to be consistent. She does note that at the onset of the pain she had what she is calling a "heat rash" though the rash has gone away. There is been some nausea but not consistent vomiting. No change in bowel movement or urination. MD Complaint: abdominal pain Onset/Timin -: days(s) Location: RUQ, epigastric Radiation: back Migration to: no migration Severity: severe Quality: aching, sharp Consistency: colicky Improves With: nothing Worsens With: eating Associated Symptoms: nausea - Related Data Home Medications Medication Instructions Recorded Confirmed Furosemide [Lasix] 20 mg PO DAILY 05/30/18 08/23/18 Omeprazole 20 mg PO DAILY 05/30/18 08/23/18 Prazosin [Minipress] 1 mg PO BID 05/30/18 08/23/18 Spironolactone [Aldactone] 25 mg PO BID 05/30/18 08/23/18 DULoxetine HCL [Cymbalta] 60 mg PO BID 08/23/18 08/23/18 Oxymetazoline 0.05% Nasl [place] 1 spray EA NOSTRIL DAILY 08/23/18 08/23/18 [Afrin 0.05% Nasal [place]] traMADol HCL [Ultram] 100 mg PO BID PRN 08/23/18 08/23/18 Previous Rx's Medication Instructions Recorded Gabapentin [Neurontin] 800 mg PO TID 30 Days #270 cap 06/01/18 Hydrocodone/Acetaminophen [[place] 1 each PO Q6HR PRN #16 tab 08/24/18 5-325] valACYclovir HCL [Valacyclovir] 1,000 mg PO Q8H #21 tab 08/24/18 Allergies Allergy/AdvReac Type Severity Reaction Status Date / Time latex Allergy Itching Verified 08/23/18 22:23 lithium AdvReac Vomiting Verified 07/09/19 22:23 pregabalin [From Lyrica] AdvReac Vomiting Verified 08/23/18 22:23 topiramate [From Topamax] AdvReac Abdominal Verified 08/23/18 22:23 Pain Review of Systems ROS Statement: Those systems with pertinent positive or pertinent negative responses have been documented in the HPI. ROS Other: All systems not noted in ROS Statement are negative. Constitutional: Denies: fever, chills, weakness Respiratory: Denies: cough, dyspnea Cardiovascular: Denies: chest pain, palpitations, edema Gastrointestinal: Reports: as per HPI, abdominal pain, nausea. Denies: vomiting, diarrhea, constipation, hematemesis, melena, hematochezia Genitourinary: Denies: dysuria, hematuria Musculoskeletal: Denies: back pain Skin: Denies: rash Neurological: Denies: headache, weakness, numbness Past Medical History Past Medical History: Asthma, COPD, Fibromyalgia, GERD/Reflux, Hypertension, Musculoskeletal Disorder, Osteoarthritis (OA) Additional Past Medical History / Comment(s): Neuropathy feet/legs and hands, bulging discs, chronic low back pain, pt needs bilateral total knees, past cellulitis bilateral lower legs, unsteady gait, lindsey fever as a child. History of Any Multi-Drug Resistant Organisms: None Reported Past Surgical History: Hysterectomy, Orthopedic Surgery, Tubal Ligation Additional Past Surgical History / Comment(s): Right knee arthroscopic surg x3; LEEP procedure, partial hysterectomy 2009/ovaries intact, colonoscopy 2013, Past Anesthesia/Blood Transfusion Reactions: No Reported Reaction Past Psychological History: Anxiety, Bipolar, Depression Smoking Status: Current every day smoker Past Alcohol Use History: Occasional Past Drug Use History: Cocaine, Marijuana, Methamphetamine - Past Family History Mother Family Medical History: Cancer, Hypertension Additional Family Medical History / Comment(s): neuropathy; Mother had Colon Cancer Father Family Medical History: No Reported History Additional Family Medical History / Comment(s): Father is bipolar General Exam Limitations: no limitations General appearance: alert, in no apparent distress Head exam: Present: atraumatic, normocephalic Eye exam: Present: normal appearance. Absent: scleral icterus, conjunctival injection ENT exam: Present: normal oropharynx Neck exam: Present: normal inspection Respiratory exam: Present: normal lung sounds bilaterally. Absent: respiratory distress, wheezes, rales, rhonchi, stridor Cardiovascular Exam: Present: regular rate, normal rhythm, normal heart sounds. Absent: systolic murmur, diastolic murmur, rubs, gallop GI/Abdominal exam: Present: soft, tenderness (There is some mild right upper quadrant tenderness without rebound or guarding.), normal bowel sounds. Absent: distended, guarding, rebound, rigid, mass, pulsatile mass, hernia Extremities exam: Present: normal inspection, normal capillary refill. Absent: pedal edema, calf tenderness Back exam: Present: normal inspection. Absent: CVA tenderness (R), CVA tenderness (L) Neurological exam: Present: alert Skin exam: Present: warm, dry, intact, normal color, rash (Patient has a number of healing ulcerations in the right inframammary and right abdominal wall. There are however no lesions extending into the axillary line or on the back. No evidence of superinfection. No warmth, erythema, or purulent drainage.) Course Vital Signs 08/23/18 08/23/18 08/24/18 21:41 23:15 02:10 Temperature 97.9 F 97.7 F 97.7 F Pulse Rate 75 69 82 Respiratory 18 18 16 Rate Blood Pressure 152/103 142/90 158/99 O2 Sat by Pulse 98 98 98 Oximetry Medical Decision Making - Medical Decision Making Patient is a 42-year-old woman with approximately 7-10 days of symptoms. Her workup today does not reveal acute cholecystitis. He patient does on the exam have a number of healing ulcerations to the underside of the breast and also the abdominal wall. We discussed that there may be an outbreak of zoster. The patient did not recall deftly seeing vesicles but noted a "heat rash" We'll treat the patient with acyclovir and have her complete the biliary colic workup. The patient states that her main issue now is that she is out of her usual tramadol. She is prescribed analgesia, and we discussed appropriate further care and follow-up, including possibly needing ultrasound/HIDA scan/surgery consultation and possible cholecystectomy. Discussed return parameters. Patient is feeling better following medications, but will return should symptoms recur. - Lab Data Result diagrams: 08/23/18 22:05 08/23/18 22:05 Lab Results 08/23/18 08/23/18 08/23/18 Range/Units 22:05 22:05 22:05 WBC 10.3 (3.8-10.6) k/uL RBC 5.15 (3.80-5.40) m/uL Hgb 15.6 (11.4-16.0) gm/dL Hct 48.3 H (34.0-46.0) % MCV 93.8 (80.0-100.0) fL MCH 30.3 (25.0-35.0) pg MCHC 32.3 (31.0-37.0) g/dL RDW 13.6 (11.5-15.5) % Plt Count 262 (150-450) k/uL Neutrophils % 71 % Lymphocytes % 19 % Monocytes % 4 % Eosinophils % 3 % Basophils % 1 % Neutrophils # 7.3 (1.3-7.7) k/uL Lymphocytes # 2.0 (1.0-4.8) k/uL Monocytes # 0.4 (0-1.0) k/uL Eosinophils # 0.3 (0-0.7) k/uL Basophils # 0.1 (0-0.2) k/uL Sodium 139 (137-145) mmol/L Potassium 4.0 (3.5-5.1) mmol/L Chloride 103 (98-107) mmol/L Carbon Dioxide 25 (22-30) mmol/L Anion Gap 11 mmol/L BUN 9 (7-17) mg/dL Creatinine 0.65 (0.52-1.04) mg/dL Est GFR (CKD-EPI)AfAm >90 (>60 ml/min/1.73 sqM) Est GFR (CKD-EPI)NonAf >90 (>60 ml/min/1.73 sqM) Glucose 135 H (74-99) mg/dL Calcium 9.4 (8.4-10.2) mg/dL Total Bilirubin 0.5 (0.2-1.3) mg/dL AST 19 (14-36) U/L ALT 19 (9-52) U/L Alkaline Phosphatase 88 (38-126) U/L Total Protein 7.3 (6.3-8.2) g/dL Albumin 4.3 (3.5-5.0) g/dL Amylase 43 (30-110) U/L Lipase 46 (23-300) U/L Urine Color Yellow Urine Appearance Cloudy H (Clear) Urine pH 6.5 (5.0-8.0) Ur Specific [place] 1.022 (1.001-1.035) Urine Protein Trace H (Negative) Urine Glucose (UA) Negative (Negative) Urine Ketones Negative (Negative) Urine Blood Negative (Negative) Urine Nitrite Negative (Negative) Urine Bilirubin Negative (Negative) Urine Urobilinogen 2.0 (<2.0) mg/dL Ur Leukocyte Esterase Negative (Negative) Urine RBC 1 (0-5) /hpf Urine WBC 4 (0-5) /hpf Ur Squamous Epith Cells 9 H (0-4) /hpf Amorphous Sediment Rare H (None) /hpf Urine Mucus Few H (None) /hpf Disposition Clinical Impression: Zoster Disposition: HOME SELF-CARE Condition: Good Instructions (If sedation given, give patient instructions): Shingles (ED) Prescriptions: Hydrocodone/Acetaminophen [[place] 5-325] 1 each PO Q6HR PRN #16 tab PRN Reason: Pain valACYclovir HCL [Valacyclovir] 1,000 mg PO Q8H #21 tab Is patient prescribed a controlled substance at d/c from ED?: Yes When asked, does pt state using other controlled substances?: Yes If prescribed controlled substance>3 days was MAPS reviewed?: Yes If opioid is for acute pain is fill amount 7 days or less?: Yes If Rx opioid, was Start Talking consent form obtained?: Yes Referrals: None,Stated [Primary Care Provider] - 1-2 days
[2018-08-24 02:11] VITALS: BP 158/99; PULSE 82; RESP 16
== END 2018-08-24 02:23 | disposition home or self-care (01) ==
LOC: EC 21:31
DX: B02.9 Zoster without complications (principal); R10.11 Right upper quadrant pain; R10.13 Epigastric pain; R11.0 Nausea; M79.7 Fibromyalgia; K21.9 Gastro-esophageal reflux disease without esophagitis; I10 Essential (primary) hypertension; F41.9 Anxiety disorder, unspecified; F32.9 Major depressive disorder, single episode, unspecified; F17.200 Nicotine dependence, unspecified, uncomplicated; Z90.711 Acquired absence of uterus with remaining cervical stump; Z98.51 Tubal ligation status; Z79.899 Other long term (current) drug therapy; Z91.040 Latex allergy status; Z91.048 Other nonmedicinal substance allergy status; Z88.8 Allergy status to other drugs, medicaments and biological substances
CPT/HCPCS: 36415; 80053; 82150; 83690; 85025; 81001; 74018; 74176; 99284; 96374; 96375; J2270; J1170

== ENCOUNTER 2018-10-14 19:06 | Emergency (ER) | payer OTHER ==
[2018-10-14 19:10] VITALS: TEMP 98.2
[2018-10-14] MEDS ORDERED: SULFAMETHOX-TMP 800-160MG 1 EACH TAB PO STA (19:21)
[2018-10-14] MEDS ORDERED: SULFAMETH-TMP DS STARTER PACK 2 TAB BTL PO STA (19:21)
[2018-10-14] MEDS ORDERED: HYDROcodone/APAP 5-325MG 1 EACH TAB PO STA (19:21)
--- NOTE | 2018-10-14 19:46 | ED ---
General Adult HPI - General Chief complaint: Skin/Abscess/Foreign Body Stated complaint: Cough, Swollen Face Time Seen by Provider: 10/14/18 19:13 Source: patient, RN notes reviewed, old records reviewed Mode of arrival: ambulatory Limitations: no limitations - History of Present Illness Initial comments: 42-year-old female patient past history of asthma, COPD, fibromyalgia , psoriasis presents ED chief complaint of abscess in the left axilla which he has had for approximately 3 weeks. Patient also reports that today she woke up and now has soft tissue swelling in the right side of her face. Patient reports that both of these are causing her a significant amount of pain. Patient denies any systemic symptoms of infection. Denies any fevers or chills. Patient states that she cannot be . Denies other complaints. Systemic: Pt denies fatigue, fever/chills, rash. Pt denies weakness, night sweats, weight loss. Neuro: Pt denies headache, visual disturbances, syncope or pre-syncope. HEENT: Pt denies ocular discharge or irritation, otalgia, rhinorrhea, pharyngitis or notable lymphadenopathy. Cardiopulmonary: Pt denies chest pain, SOB, heart palpitations, dyspnea on exertion. Abdominal/GI: Pt denies abdominal pain, n/v/d. : Pt denies dysuria, burning w/ urination, frequency/urgency. Denies new onset urinary or bowel incontinence. MSK: Pt denies myalgia, loss of strength or function in extremities. Neuro: Pt denies new onset weakness, paresthesias. - Related Data Home Medications Medication Instructions Recorded Confirmed Furosemide [Lasix] 20 mg PO DAILY 05/30/18 08/23/18 Omeprazole 20 mg PO DAILY 05/30/18 08/23/18 Prazosin [Minipress] 1 mg PO BID 05/30/18 08/23/18 Spironolactone [Aldactone] 25 mg PO BID 05/30/18 08/23/18 DULoxetine HCL [Cymbalta] 60 mg PO BID 08/23/18 08/23/18 Oxymetazoline 0.05% Nasl [place] 1 spray EA NOSTRIL DAILY 08/23/18 08/23/18 [Afrin 0.05% Nasal [place]] traMADol HCL [Ultram] 100 mg PO BID PRN 08/23/18 08/23/18 Previous Rx's Medication Instructions Recorded Gabapentin [Neurontin] 800 mg PO TID 30 Days #270 cap 06/01/18 Hydrocodone/Acetaminophen [[place] 1 each PO Q6HR PRN #16 tab 08/24/18 5-325] valACYclovir HCL [Valacyclovir] 1,000 mg PO Q8H #21 tab 08/24/18 Sulfamethox-Tmp 800-160Mg [Bactrim 2 tab PO Q12HR 7 Days #14 tab 10/14/18 DS 800-160 mg] Allergies Allergy/AdvReac Type Severity Reaction Status Date / Time latex Allergy Itching Verified 10/14/18 19:07 lithium AdvReac Vomiting Verified 10/14/18 19:07 pregabalin [From Lyrica] AdvReac Vomiting Verified 10/14/18 19:07 topiramate [From Topamax] AdvReac Abdominal Verified 10/14/18 19:07 Pain Review of Systems ROS Statement: Those systems with pertinent positive or pertinent negative responses have been documented in the HPI. ROS Other: All systems not noted in ROS Statement are negative. Past Medical History Past Medical History: Asthma, COPD, Fibromyalgia, GERD/Reflux, Hypertension, Musculoskeletal Disorder, Osteoarthritis (OA) Additional Past Medical History / Comment(s): Neuropathy feet/legs and hands, bulging discs, chronic low back pain, pt needs bilateral total knees, past cellulitis bilateral lower legs, unsteady gait, lindsey fever as a child. History of Any Multi-Drug Resistant Organisms: None Reported Past Surgical History: Hysterectomy, Orthopedic Surgery, Tubal Ligation Additional Past Surgical History / Comment(s): Right knee arthroscopic surg x3; LEEP procedure, partial hysterectomy 2009/ovaries intact, colonoscopy 2013, Past Anesthesia/Blood Transfusion Reactions: No Reported Reaction Past Psychological History: Anxiety, Bipolar, Depression Smoking Status: Current every day smoker Past Alcohol Use History: Occasional Past Drug Use History: None Reported, Cocaine, Marijuana, Methamphetamine - Past Family History Mother Family Medical History: Cancer, Hypertension Additional Family Medical History / Comment(s): neuropathy; Mother had Colon Cancer Father Family Medical History: No Reported History Additional Family Medical History / Comment(s): Father is bipolar General Exam - General Exam Comments Initial Comments: Constitutional: NAD, AOX3, Pt has pleasant affect. HEENT: NC/AT, trachea midline, neck supple, no lymphadenopathy. Posterior pharynx non erythematous, without exudates. External ears appear normal, without discharge. Mucous membranes moist. Eyes PERRLA, EOM intact. There is no scleral icterus. No pallor noted. Cardiopulmonary: RRR, no murmurs, rubs or gallops, no JVD noted. Lungs CTAB in anterior and posterior garcia. No peripheral edema. Abdominal exam: Abdomen soft and non-distended. Abdomen non-tender to palpation in all 4 quadrants. Bowel sounds active in LLQ. No hepatosplenomegaly. No ecchymosis Neuro: CN II-XII grossly intact. No nuchal rigidity. No raccon eyes, no del castillo sign, no hemotympanum. No cervical spinal tenderness. MSK: No posterior calf tenderness bilaterally, homans sign negative bilaterally. Posterior tibialis and radial pulse +2 bilaterally. Sensation intact in upper and lower extremities. Full active ROM in upper and lower extremities, 5/5 stregnth. Derm: Mild amount of soft tissue swelling to right jaw/cheek region. No skin changes external or internal mucosa. No fluctuance, no drainable abscess. 2 x 2 centimeter accessed and left axilla, incision and drainage procedure displayed pus. Limitations: no limitations Course Vital Signs 10/14/18 19:07 Temperature 98.2 F Pulse Rate 101 H Respiratory 18 Rate Blood Pressure 160/107 O2 Sat by Pulse 98 Oximetry Procedures - Incision & Drainage Consent Obtained: verbal consent Indication: abscess L axillae Site: other (L axillae ) Size (cm): 2 I&D Cleaning Method: Chloroprep Sterile Field Used?: No Scalpel Used: #11 I&D Drainage Obtained: Pus, Blood Culture Obtained?: Yes Patient Tolerated Procedure: well Medical Decision Making - Medical Decision Making 42-year-old female patient past history of asthma, COPD, fibromyalgia , psoriasis presents ED chief complaint of abscess in the left axilla which he has had for approximately 3 weeks. Patient also reports that today she woke up and now has soft tissue swelling in the right side of her face. Patient reports that both of these are causing her a significant amount of pain. Patient denies any systemic symptoms of infection. Denies any fevers or chills. Patient states that she cannot be . Denies other complaints. Pt VSS, afebrile. Physical exam displayed: Mild amount of soft tissue swelling to right jaw/cheek region. No skin changes external or internal mucosa. No fluctuance, no drainable abscess. 2 x 2 centimeter accessed and left axilla, incision and drainage procedure displayed pus. Patient states that there is no chance that she could be . Patient requests pain medication and was given 1 dose of analgesia. Patient discharged with antibiotics and will follow up with primary care provider as soon as possible, given strict return precautions. Case discussed with Dr. [place]. Disposition Clinical Impression: Abscess Disposition: HOME SELF-CARE Condition: Stable Instructions (If sedation given, give patient instructions): Abscess (ED) Additional Instructions: Patient to adhere to previously discussed treatment plan and will take medic ation(s) as directed. Patient to follow up with PCP in 1-2 days. Patient to return to ED if symptoms do not improve. Take medications as directed. Follow up with primary care provider as soon as possible. Return to ER immediately if condition worsens. Prescriptions: Sulfamethox-Tmp 800-160Mg [Bactrim DS 800-160 mg] 2 tab PO Q12HR 7 Days #14 tab Is patient prescribed a controlled substance at d/c from ED?: No Referrals: None,Stated [Primary Care Provider] - 1-2 days Alberto Gonzalez MD [STAFF PHYSICIAN] - 1-2 days
--- NOTE | 2018-10-14 20:18 | ED ---
Medical Decision Making - Medical Decision Making pt declined cxr for cough, states that she fill f/u with PCP, lungs CTAB Disposition Clinical Impression: Abscess Disposition: HOME SELF-CARE Condition: Stable Instructions (If sedation given, give patient instructions): Abscess (ED) Additional Instructions: Patient to adhere to previously discussed treatment plan and will take m edication(s) as directed. Patient to follow up with PCP in 1-2 days. Patient to return to ED if symptoms do not improve. Take medications as directed. Follow up with primary care provider as soon as possible. Return to ER immediately if condition worsens. Prescriptions: Sulfamethox-Tmp 800-160Mg [Bactrim DS 800-160 mg] 2 tab PO Q12HR 7 Days #14 tab Is patient prescribed a controlled substance at d/c from ED?: No Referrals: Alberto Gonzalez MD [STAFF PHYSICIAN] - 1-2 days None,Stated [Primary Care Provider] - 1-2 days
[2018-10-14 20:23] VITALS: BP 139/85; PULSE 74; RESP 16
== END 2018-10-14 20:24 | disposition home or self-care (01) ==
LOC: EC 19:06
DX: L02.412 Cutaneous abscess of left axilla (principal); K21.9 Gastro-esophageal reflux disease without esophagitis; I10 Essential (primary) hypertension; F41.9 Anxiety disorder, unspecified; F31.9 Bipolar disorder, unspecified; F17.200 Nicotine dependence, unspecified, uncomplicated; Z79.899 Other long term (current) drug therapy; Z91.040 Latex allergy status; Z88.8 Allergy status to other drugs, medicaments and biological substances
CPT/HCPCS: 10060; 87070; 87205; 99284

== ENCOUNTER 2018-12-11 13:49 | Emergency (ER) | payer MEDICARE, OTHER ==
[2018-12-11 14:08] VITALS: BP 133/80; PULSE 80; RESP 18; TEMP 98
--- NOTE | 2018-12-11 14:43 | ED ---
Skin/Abscess/FB HPI - General Chief complaint: Skin/Abscess/Foreign Body Stated complaint: Non Healing Wound foot Time Seen by Provider: 12/11/18 14:18 Source: patient Mode of arrival: ambulatory Limitations: no limitations - History of Present Illness Initial comments: Patient is a 42-year-old female, Past medical history of asthma, COPD, fibromyalgia, hypertension, OA, neuropathy, presenting to the emergency Department with complaints of a nonhealing wound on the bottom of her right foot 2 months. Patient states she was previously seen at [facility] for the same issue and tried antibiotics but the wound is just not healing. Patient is havin g constant pain in her right foot. Patient has not seen a health services coordinator or wound Center for this. Patient denies fever, chills, nausea, vomiting. Patient has no other complaints at this time. Upon arrival to ER, vital signs are stable. - Related Data Home Medications Medication Instructions Recorded Confirmed Furosemide [Lasix] 20 mg PO DAILY 05/30/18 08/23/18 Omeprazole 20 mg PO DAILY 05/30/18 08/23/18 Prazosin [Minipress] 1 mg PO BID 05/30/18 08/23/18 Spironolactone [Aldactone] 25 mg PO BID 05/30/18 08/23/18 DULoxetine HCL [Cymbalta] 60 mg PO BID 08/23/18 08/23/18 Oxymetazoline 0.05% Nasl [place] 1 spray EA NOSTRIL DAILY 08/23/18 08/23/18 [Afrin 0.05% Nasal [place]] traMADol HCL [Ultram] 100 mg PO BID PRN 08/23/18 08/23/18 Previous Rx's Medication Instructions Recorded Gabapentin [Neurontin] 800 mg PO TID 30 Days #270 cap 06/01/18 Hydrocodone/Acetaminophen [[place] 1 each PO Q6HR PRN #16 tab 08/24/18 5-325] valACYclovir HCL [Valacyclovir] 1,000 mg PO Q8H #21 tab 08/24/18 Sulfamethox-Tmp 800-160Mg [Bactrim 2 tab PO Q12HR 7 Days #14 tab 10/14/18 DS 800-160 mg] Allergies Allergy/AdvReac Type Severity Reaction Status Date / Time latex Allergy Itching Verified 10/14/18 19:07 lithium AdvReac Vomiting Verified 10/14/18 19:07 pregabalin [From Lyrica] AdvReac Vomiting Verified 10/14/18 19:07 topiramate [From Topamax] AdvReac Abdominal Verified 10/14/18 19:07 Pain Review of Systems ROS Statement: Those systems with pertinent positive or pertinent negative responses have been documented in the HPI. ROS Other: All systems not noted in ROS Statement are negative. Past Medical History Past Medical History: Asthma, COPD, Fibromyalgia, GERD/Reflux, Hypertension, Musculoskeletal Disorder, Osteoarthritis (OA) Additional Past Medical History / Comment(s): Neuropathy feet/legs and hands, bulging discs, chronic low back pain, pt needs bilateral total knees, past cellulitis bilateral lower legs, unsteady gait, lindsey fever as a child. History of Any Multi-Drug Resistant Organisms: None Reported Past Surgical History: Hysterectomy, Orthopedic Surgery, Tubal Ligation Additional Past Surgical History / Comment(s): Right knee arthroscopic surg x3; LEEP procedure, partial hysterectomy 2009/ovaries intact, colonoscopy 2013, Past Anesthesia/Blood Transfusion Reactions: No Reported Reaction Past Psychological History: Anxiety, Bipolar, Depression Smoking Status: Current every day smoker Past Alcohol Use History: Occasional Past Drug Use History: None Reported, Cocaine, Marijuana, Methamphetamine - Past Family History Mother Family Medical History: Cancer, Hypertension Additional Family Medical History / Comment(s): neuropathy; Mother had Colon Cancer Father Family Medical History: No Reported History Additional Family Medical History / Comment(s): Father is bipolar General Exam - General Exam Comments Initial Comments: GENERAL: Well-appearing, well-nourished and in no acute distress. Obese, playing on the phone during exam. HEAD: Atraumatic, normocephalic. EYES: Pupils equal round and reactive to light, extraocular movements intact, sclera anicteric, conjunctiva are normal. ENT: Moist mucous membranes. NECK: Normal range of motion, supple without lymphadenopathy or JVD. LUNGS: Breath sounds clear to auscultation bilaterally and equal. No wheezes rales or rhonchi. HEART: Regular rate and rhythm without murmurs, rubs or gallops. ABDOMEN: Soft, nontender, normoactive bowel sounds. No masses appreciated. EXTREMITIES: Normal range of motion of the right foot and right ankle. No clubbing or cyanosis. PSYCH: Normal mood, normal affect. SKIN: Warm, Dry, normal turgor, no rashes. Patient has a small open wound on the plantar surface of the right foot, in the arch area. The wound is surrounded with calloused tissue. There is no surrounding erythema or active drainage. There is pain with palpation. Limitations: no limitations Course Vital Signs 12/11/18 14:05 Temperature 98.0 F Pulse Rate 80 Respiratory 18 Rate Blood Pressure 133/80 O2 Sat by Pulse 95 Oximetry Medical Decision Making - Medical Decision Making Patient is a 42-year-old female presenting with an open wound on the bottom of her right foot 2 months. Wound is surrounded by callused tissue. There is no signs of infection at this time. X-ray of the right foot shows no sign of osteomyelitis, soft tissue ulcer defect present. Labs are unremarkable. Patient is stable for discharge at this time. She was given information for referral to the wound care clinic. Patient is in agreement with this plan of care. Return parameters were discussed with the patient she verbalized understanding. Case discussed with Dr. Duron. - Lab Data Result diagrams: 12/11/18 14:30 12/11/18 14:30 Lab Results 12/11/18 12/11/18 Range/Units 14:30 14:30 WBC 7.0 (3.8-10.6) k/uL RBC 4.38 (3.80-5.40) m/uL Hgb 13.8 (11.4-16.0) gm/dL Hct 41.8 (34.0-46.0) % MCV 95.5 (80.0-100.0) fL MCH 31.5 (25.0-35.0) pg MCHC 33.0 (31.0-37.0) g/dL RDW 13.5 (11.5-15.5) % Plt Count 210 (150-450) k/uL Neutrophils % 60 % Lymphocytes % 24 % Monocytes % 7 % Eosinophils % 5 % Basophils % 1 % Neutrophils # 4.2 (1.3-7.7) k/uL Lymphocytes # 1.7 (1.0-4.8) k/uL Monocytes # 0.5 (0-1.0) k/uL Eosinophils # 0.4 (0-0.7) k/uL Basophils # 0.1 (0-0.2) k/uL Sodium 138 (137-145) mmol/L Potassium 4.3 (3.5-5.1) mmol/L Chloride 106 (98-107) mmol/L Carbon Dioxide 26 (22-30) mmol/L Anion Gap 6 mmol/L BUN 10 (7-17) mg/dL Creatinine 0.72 (0.52-1.04) mg/dL Est GFR (CKD-EPI)AfAm >90 (>60 ml/min/1.73 sqM) Est GFR (CKD-EPI)NonAf >90 (>60 ml/min/1.73 sqM) Glucose 100 H (74-99) mg/dL Calcium 8.8 (8.4-10.2) mg/dL Total Bilirubin 0.2 (0.2-1.3) mg/dL AST 24 (14-36) U/L ALT 31 (9-52) U/L Alkaline Phosphatase 70 (38-126) U/L Total Protein 6.5 (6.3-8.2) g/dL Albumin 3.7 (3.5-5.0) g/dL Disposition Clinical Impression: Chronic ulcer of right foot Disposition: HOME SELF-CARE Condition: Stable Instructions (If sedation given, give patient instructions): Diabetic Foot Ulcers (ED) Additional Instructions: Please return to the Emergency Department if symptoms worsen or any other concerns. Follow-up with the [facility] Wound care clinic as discussed. 2nd Floor: # [phone] Is patient prescribed a controlled substance at d/c from ED?: No Referrals: None,Stated [Primary Care Provider] - 1-2 days
--- NOTE | 2018-12-11 14:47 | XR ---
EXAMINATION TYPE: XR foot complete RT DATE OF EXAM: 12/11/2018 COMPARISON: NONE HISTORY: Chronic wound. TECHNIQUE: 3 views FINDINGS: There is soft tissue swelling of the forefoot. There is plantar calcaneal spurring. Metatar sals appear intact. I see no fracture nor dislocation. There is apparent ulcer defect on the plantar aspect of the midfoot. IMPRESSION: Soft tissue ulcer defect. Calcaneal spurring. No sign of osteomyelitis.
[2018-12-11 15:03] LABS: Basophils # (A) 0.1 k/uL (0-0.2); Basophils % (A) 1 %; Eosinophils # (A) 0.4 k/uL (0-0.7); Eosinophils % (A) 5 %; HCT 41.8 % (34.0-46.0); HGB 13.8 gm/dL (11.4-16.0); Lymphocytes # (A) 1.7 k/uL (1.0-4.8); Lymphocytes % (A) 24 %; MCH 31.5 pg (25.0-35.0); MCV 95.5 fL (80.0-100.0); Mean Platelet Volume 5.7; Monocytes # (A) 0.5 k/uL (0-1.0); Monocytes % (A) 7 %; Neutrophils # (A) 4.2 k/uL (1.3-7.7); Neutrophils % (A) 60 %; Platelet Count 210 k/uL (150-450); RBC 4.38 m/uL (3.80-5.40); RDW 13.5 % (11.5-15.5)
[2018-12-11 15:12] LABS: ALT 31 U/L (9-52); AST 24 U/L (14-36); African American GFR (CKD) >90 (>60 ml/min/1.73 sqM); Albumin 3.7 g/dL (3.5-5.0); Alkaline Phosphatase 70 U/L (38-126); Anion Gap 6 mmol/L; Blood Urea Nitrogen 10 mg/dL (7-17); Calcium 8.8 mg/dL (8.4-10.2); Carbon Dioxide 26 mmol/L (22-30); Chloride 106 mmol/L (98-107); Glucose 100 mg/dL (74-99); Potassium 4.3 mmol/L (3.5-5.1); Sodium 138 mmol/L (137-145); Total Bilirubin 0.2 mg/dL (0.2-1.3); Total Protein 6.5 g/dL (6.3-8.2)
== END 2018-12-11 15:58 | disposition home or self-care (01) ==
LOC: EC 13:49
DX: L97.519 Non-pressure chronic ulcer of other part of right foot with unspecified severity (principal); J44.9 Chronic obstructive pulmonary disease, unspecified; I10 Essential (primary) hypertension; K21.9 Gastro-esophageal reflux disease without esophagitis; G62.9 Polyneuropathy, unspecified; F41.9 Anxiety disorder, unspecified; F31.9 Bipolar disorder, unspecified; F17.200 Nicotine dependence, unspecified, uncomplicated; Z79.899 Other long term (current) drug therapy; Z88.8 Allergy status to other drugs, medicaments and biological substances; Z91.040 Latex allergy status
CPT/HCPCS: 36415; 80053; 85025; 87070; 87077; 87186; 87205; 99283

== ENCOUNTER 2018-12-16 16:00 | Inpatient (IN) | payer MEDICARE, OTHER ==
--- NOTE | 2018-12-16 16:12 | ED ---
Recheck HPI - General Chief Complaint: Recheck/Abnormal Lab/Rx Stated Complaint: Cellulitis R Foot Time Seen by Provider: 12/16/18 16:08 Source: patient, RN notes reviewed, old records reviewed Mode of arrival: ambulatory Limitations: no limitations - History of Present Illness Initial Comments: This is a 42-year-old female the ER for evaluation patient is for recheck of right lower extremity pain, infection. Patient has persisting pain right lower extremity set off is a callus over midfoot bottom aspect of her midfoot she didn't use them to by minute callus material remover, patient then had some injury to that area from the treatment and developed a little hole there. Patient has now had increasing cellulitis of the right leg. This patient's second visit for similar complaints she has been on Bactrim with no improvement. Pain is increasing and difficulty to Ambulate on foot secondary to pain medical history significant for asthma COPD and neuropathy. Patient has no history of diabetes or CAD MD Complaint: wound re-check (Right lower extremity) -: days(s) Initial Visit For: cellulitis (On top of puncture wound) Returns Today for: cellulitis follow-up Symptoms Since Prior Visit: worsening pain, worsening swelling (Symptoms of cellulitis or increasing of right extremity and to right anterior tibial area), worsening redness Associated Symptoms: none Treatments Prior to Arrival: Given Antibiotics on, other (And patient switched antibiotics to Bactrim when positive cultures for MRSA developed) - Related Data Home Medications Medication Instructions Recorded Confirmed Furosemide [Lasix] 20 mg PO DAILY 05/30/18 08/23/18 Omeprazole 20 mg PO DAILY 05/30/18 08/23/18 Prazosin [Minipress] 1 mg PO BID 05/30/18 08/23/18 Spironolactone [Aldactone] 25 mg PO BID 05/30/18 08/23/18 DULoxetine HCL [Cymbalta] 60 mg PO BID 08/23/18 08/23/18 Oxymetazoline 0.05% Nasl [place] 1 spray EA NOSTRIL DAILY 08/23/18 08/23/18 [Afrin 0.05% Nasal [place]] traMADol HCL [Ultram] 100 mg PO BID PRN 08/23/18 08/23/18 Previous Rx's Medication Instructions Recorded Gabapentin [Neurontin] 800 mg PO TID 30 Days #270 cap 06/01/18 Hydrocodone/Acetaminophen [[place] 1 each PO Q6HR PRN #16 tab 08/24/18 5-325] valACYclovir HCL [Valacyclovir] 1,000 mg PO Q8H #21 tab 08/24/18 Sulfamethox-Tmp 800-160Mg [Bactrim 2 tab PO Q12HR 7 Days #14 tab 10/14/18 DS 800-160 mg] Allergies Allergy/AdvReac Type Severity Reaction Status Date / Time latex Allergy Itching Verified 12/16/18 16:04 lithium AdvReac Vomiting Verified 12/16/18 16:04 pregabalin [From Lyrica] AdvReac Vomiting Verified 12/16/18 16:04 topiramate [From Topamax] AdvReac Abdominal Verified 12/16/18 16:04 Pain Review of Systems ROS Statement: Those systems with pertinent positive or pertinent negative responses have been documented in the HPI. ROS Other: All systems not noted in ROS Statement are negative. Past Medical History Past Medical History: Asthma, COPD, Fibromyalgia, GERD/Reflux, Hypertension, Musculoskeletal Disorder, Osteoarthritis (OA) Additional Past Medical History / Comment(s): Neuropathy feet/legs and hands, bulging discs, chronic low back pain, pt needs bilateral total knees, past cellulitis bilateral lower legs, unsteady gait, lindsey fever as a child. History of Any Multi-Drug Resistant Organisms: MRSA Date of last positivie culture/infection: 12/11/18 MDRO Source:: FOOT Past Surgical History: Hysterectomy, Orthopedic Surgery, Tubal Ligation Additional Past Surgical History / Comment(s): Right knee arthroscopic surg x3; LEEP procedure, partial hysterectomy 2009/ovaries intact, colonoscopy 2013, Past Anesthesia/Blood Transfusion Reactions: No Reported Reaction Past Psychological History: Anxiety, Bipolar, Depression Smoking Status: Current every day smoker Past Alcohol Use History: Occasional Past Drug Use History: None Reported, Cocaine, Marijuana, Methamphetamine - Past Family History Mother Family Medical History: Cancer, Hypertension Additional Family Medical History / Comment(s): neuropathy; Mother had Colon Cancer Father Family Medical History: No Reported History Additional Family Medical History / Comment(s): Father is bipolar General Exam Limitations: no limitations General appearance: alert, in no apparent distress Head exam: Present: atraumatic, normocephalic, normal inspection Eye exam: Present: normal appearance, EOMI. Absent: scleral icterus, conjunctival injection, periorbital swelling ENT exam: Present: normal exam, mucous membranes moist Neck exam: Present: normal inspection. Absent: tenderness, meningismus, lymphadenopathy Respiratory exam: Present: normal lung sounds bilaterally. Absent: respiratory distress, wheezes, rales, rhonchi, stridor Cardiovascular Exam: Present: normal rhythm, tachycardia, normal heart sounds. Absent: systolic murmur, diastolic murmur, rubs, gallop, clicks GI/Abdominal exam: Present: soft, normal bowel sounds. Absent: distended, tenderness, guarding, rebound, rigid Extremities exam: Present: normal inspection, full ROM, normal capillary refill, other (Right lower extremity puncture wound with cellulitis spreading up anterior calf, originalMarked around area of cellulitis has been advanced by erythema and swelling to the proximal aspect of the leg). Absent: tenderness, pedal edema, joint swelling, calf tenderness Back exam: Present: normal inspection Neurological exam: Present: alert, oriented X3, CN II-XII intact Psychiatric exam: Present: normal affect, normal mood Skin exam: Present: warm, dry, intact, normal color. Absent: rash Course Vital Signs 12/16/18 16:01 Temperature 97.9 F Pulse Rate 107 H Respiratory 18 Rate Blood Pressure 148/76 O2 Sat by Pulse 95 Oximetry - Reevaluation(s) Reevaluation #1: 12/16/18 16:27 Medical records reviewed Reevaluation #2: 12/16/18 16:29 Patient cultures are reviewed Reevaluation #3: 12/16/18 17:29 Patient is adequate current pain control - Consultations Consultation #1: Spoke with Dr. Figueroa who is agreeable for admission Medical Decision Making - Medical Decision Making 42 female the ER for evaluation for lower extremity cellulitis increasing cellulitis upon upper extremity proximal to prior wound area. Patient also has puncture wound of right foot is positive for MRSA. We'll admit for IV antibiotics as an outpatient about she is having worsening pain worsening swelling, patient very emotional during exam. She is going to lose her foot. - Lab Data Result diagrams: 12/16/18 16:57 12/16/18 16:57 - Radiology Data Radiology results: report reviewed (X-ray right foot), image reviewed Disposition Clinical Impression: Puncture wound of right foot, Cellulitis of right lower extremity, Failure of outpatient treatment, MRSA infection, Chronic ulcer of right foot, Cellulitis Disposition: ADMITTED IP TO THIS HOSP Condition: Good Is patient prescribed a controlled substance at d/c from ED?: No
[2018-12-16] MEDS ORDERED: MORPHINE SULFATE 4 MG/ML SYRINGE IV STA (16:24)
[2018-12-16] MEDS ORDERED: SODIUM CHLORIDE 0.9% 1,000 ML IV STA (16:24)
[2018-12-16] MEDS ORDERED: VANCOMYCIN IV PER PHARMACY 1 EACH MISC MISCELLANE PRN (16:24)
[2018-12-16] MEDS ORDERED: VANCOMYCIN 2,250 MG in SODIUM CHLORIDE 0.9% 500 ML 500 ML IVPB ONE (17:00)
[2018-12-16 17:16] LABS: Basophils # (A) 0.1 k/uL (0-0.2); Basophils % (A) 1 %; Eosinophils # (A) 0.3 k/uL (0-0.7); Eosinophils % (A) 3 %; HGB 13.7 gm/dL (11.4-16.0); Lymphocytes # (A) 1.5 k/uL (1.0-4.8); Lymphocytes % (A) 13 %; MCH 31.9 pg (25.0-35.0); MCHC 33.5 g/dL (31.0-37.0); MCV 95.2 fL (80.0-100.0); Monocytes # (A) 0.8 k/uL (0-1.0); Monocytes % (A) 7 %; Neutrophils # (A) 8.8 k/uL (1.3-7.7); Neutrophils % (A) 75 %; Platelet Count 209 k/uL (150-450); RBC 4.31 m/uL (3.80-5.40); RDW 13.4 % (11.5-15.5); WBC 11.7 k/uL (3.8-10.6)
[2018-12-16 17:22] LABS: INR 0.9 (<1.2); Partial Thromboplastin Time 25.2 sec (22.0-30.0); Prothrombin Time 9.5 sec (9.0-12.0)
[2018-12-16 17:24] LABS: ALT 23 U/L (9-52); AST 18 U/L (14-36); African American GFR (CKD) >90 (>60 ml/min/1.73 sqM); Albumin 3.9 g/dL (3.5-5.0); Alkaline Phosphatase 78 U/L (38-126); Anion Gap 7 mmol/L; Blood Urea Nitrogen 10 mg/dL (7-17); Calcium 9.5 mg/dL (8.4-10.2); Carbon Dioxide 26 mmol/L (22-30); Chloride 105 mmol/L (98-107); Glucose 117 mg/dL (74-99); Magnesium 2.1 mg/dL (1.6-2.3); Phosphorus 4.5 mg/dL (2.5-4.5); Potassium 4.5 mmol/L (3.5-5.1); Sodium 138 mmol/L (137-145); Total Bilirubin 0.5 mg/dL (0.2-1.3); Total Protein 7.1 g/dL (6.3-8.2)
--- NOTE | 2018-12-16 18:34 | XR ---
EXAMINATION TYPE: XR foot complete RT DATE OF EXAM: 12/16/2018 COMPARISON: 12/11/2018 HISTORY: Cellulitis. Pain TECHNIQUE: 3 views FINDINGS: Metatarsals appear intact. I see no fracture nor dislocation. There are plantar and [place] s calcaneal spurs. There is soft tissue swelling and ulceration at the plantar aspect of the midfoot. IMPRESSION: Soft tissue swelling and ulceration unchanged. There is decreased swelling of the forefoo t compared to last exam. No evidence of osteomyelitis.
[2018-12-16] MEDS ORDERED: INFLUENZA VACCINE (6 MOS+) 60 MCG/0.5 ML SYRINGE IM ONE (19:00)
[2018-12-16] MEDS: PNEUMOCOCCAL VACC-PNEUMOVAX 23 25 MCG/0.5 ML VIAL IM ONE ×2 (19:56→20:08)
[2018-12-16] MEDS: GABAPENTIN 400 MG CAP PO SCH (21:22)
[2018-12-16] MEDS: busPIRone HCl 10 MG TAB PO SCH (21:23)
[2018-12-16] MEDS: SPIRONOLACTONE 25 MG TAB PO SCH (21:23)
[2018-12-16] MEDS: DULoxetine HCL 60 MG CAPSULE.DR PO SCH (21:23)
[2018-12-16] MEDS: MORPHINE SULFATE 4 MG/ML SYRINGE IVP PRN (21:24)
[2018-12-16] MEDS: PRAZOSIN 1 MG CAP PO SCH (21:27)
[2018-12-17] MEDS: IBUPROFEN 800 MG TAB PO PRN (00:17)
[2018-12-17] MEDS: MORPHINE SULFATE 4 MG/ML SYRINGE IVP PRN ×6 (01:03→21:18)
[2018-12-17] MEDS: VANCOMYCIN 2,250 MG in SODIUM CHLORIDE 0.9% 500 ML 500 ML IVPB SCH ×2 (05:12→17:26)
[2018-12-17] MEDS: GABAPENTIN 400 MG CAP PO SCH ×3 (09:06→20:21)
[2018-12-17] MEDS: SPIRONOLACTONE 25 MG TAB PO SCH ×2 (09:07→20:21)
[2018-12-17] MEDS: FUROSEMIDE 20 MG TAB PO SCH (09:07)
[2018-12-17] MEDS: DULoxetine HCL 60 MG CAPSULE.DR PO SCH ×2 (09:07→20:21)
[2018-12-17] MEDS: busPIRone HCl 10 MG TAB PO SCH ×2 (09:07→20:21)
[2018-12-17] MEDS: PANTOPRAZOLE 40 MG TABLET PO SCH (09:07)
[2018-12-17] MEDS: PRAZOSIN 1 MG CAP PO SCH ×2 (09:08→20:21)
[2018-12-17] MEDS: SODIUM CHLORIDE 0.9% 1,000 ML IV SCH (11:54)
--- NOTE | 2018-12-17 14:31 | US ---
EXAMINATION TYPE: US axilla RT DATE OF EXAM: 12/17/2018 COMPARISON: NONE CLINICAL HISTORY: abscess. Hard palpable lump in right axilla x few days. Painful. Area of concern scanned. Possible lesion visualized with indistinguishable borders with estimated si ze of 3.4 x 3.3 x 3.6 cm. Nonvascular. No fluid collection visualized. IMPRESSION: Poorly marginated 4 cm solid mass in the area of concern could be a phlegmon. The appear ance is nonspecific.
[2018-12-17 18:48] LABS: Hemoglobin A1C 4.9 % (4.0-6.0)
--- NOTE | 2018-12-17 18:48 | P.CONS ---
History of Present Illness - Reason for Consult Consult date: 12/17/18 - Chief Complaint painful foot lesion - History of Present Illness 42-year-old female with history of obesity, hypertension, chronic edema, depression presents to Hospital after having difficulties with the right foot plantar surface. The patient has difficulties with chronic callus fo rmation to her right foot which appears in the bases of some foot deformity. She utilizes a callus tremor which is by her description a modified file, she says she uses it all the time. However the last time she used it afterwards she had a lot of discomfort. Shortly after she developed a blister concerned to have drainage. Then she developed redness on the plantar surface of the foot that then ascended her leg she started to have fever and chill she felt quite poorly and consequently she presented to Hospital for evaluation of the wound and ascending cellulitis. She is not feeling better since coming to hospital. She's having resolution of her fever and chills. The foot is still very tender touch and ambulation. All records are reviewed and the patient verifies that she is not diabetic. Review of Systems at presentation felt poorly ever chill pain to t HEENT:Denies headache or acute visual change. Denies sinus or mouth discomforts. Denies neck stiffness or pain. Denies significant oral cavity pain. Denies difficulty on swallowing. Lungs: Denies significant shortness of breath, cough, sputum production, or hemoptysis. Cardiovascular: Denies significant shortness of breath, chest pain, chest wall pain, orthopnea, dyspnea on exertion, syncope Gastrointestinal:Denies nausea, vomiting, diarrhea, constipation, hematemesis, melena, hematochezia. No no significant change of bowel habit noticed. Musculoskeletal: denies significant myalgias or arthralgias. No new joint swelling. Denies new back pain. Skin: Denies new rash or lesions. No new ulcers or wounds are related.. Neuro: Denies headache or visual change. Denies any new onset weakness or difficulty with ambulation. Denies falls or seizures. Psychiatric:Denies anxiety or depression. Endocrine: chronic fatigue and chronic weight gai Past Medical History Past Medical History: Asthma, COPD, Fibromyalgia, GERD/Reflux, Hypertension, Musculoskeletal Disorder, Osteoarthritis (OA) Additional Past Medical History / Comment(s): Pt denies HTN/CHF but takes water pills. Neuropathy feet/legs and hands, bulging discs, chronic low back pain, DDD, pt needs bilateral total knees states, "it's bone on bone.", past cellulitis bilateral lower legs, unsteady gait, lindsey fever as a child. History of Any Multi-Drug Resistant Organisms: MRSA Year Discovered:: 12/11/18 MDRO Source:: FOOT Past Surgical History: Hysterectomy, Orthopedic Surgery, Tubal Ligation Additional Past Surgical History / Comment(s): Right knee arthroscopic surg x3; LEEP procedure, partial hysterectomy 2009/ovaries intact, colonoscopy 2013, Past Anesthesia/Blood Transfusion Reactions: No Reported Reaction Past Psychological History: Anxiety, Bipolar, Depression Additional Psychological History / Comment(s): [facility] patient. Past history of substance abuse. single. Did not relate to having children. Does have a pet dog. No travel. The experience. Active tobacco smoker. Denies recreational drug use or alcohol use Smoking Status: Current some day smoker Past Alcohol Use History: None Reported Past Drug Use History: Cocaine, Marijuana, Methamphetamine Additional Drug Use History / Comment(s): Past history of substance abuse. Pt. denies drug use at this time. - Past Family History Mother Family Medical History: Cancer, Hypertension Additional Family Medical History / Comment(s): neuropathy; Mother had Colon Cancer Father Family Medical History: No Reported History Additional Family Medical History / Comment(s): Father is bipolar Medications and Allergies Home Medications and Allergies Comment(s): Current Medications Buspirone HCl (Buspar) 15 mg PO BID [facility] Last Admin: 12/17/18 09:07 Dose: 15 mg Documented by: Duloxetine HCl (Cymbalta) 60 mg PO BID [facility] Last Admin: 12/17/18 09:07 Dose: 60 mg Documented by: Furosemide (Lasix) 20 mg PO DAILY [facility] Last Admin: 12/17/18 09:07 Dose: 20 mg Documented by: Gabapentin (Neurontin) 800 mg PO TID [facility] Last Admin: 12/17/18 17:25 Dose: 800 mg Documented by: Vancomycin HCl 2,250 mg/ (Sodium Chloride) 500 mls @ 167 mls/hr IVPB Q12H [facility] Last Admin: 12/17/18 17:26 Dose: 167 mls/hr Documented by: Sodium Chloride (Saline 0.9%) 1,000 mls @ 50 mls/hr IV .Q20H [facility] Last Admin: 12/17/18 11:54 Dose: 50 mls/hr Documented by: Ibuprofen (Motrin) 800 mg PO Q6H PRN PRN Reason: Pain or Fever > 100.5 Last Admin: 12/17/18 00:17 Dose: 800 mg Documented by: Miscellaneous Information (Vancomycin Trough Due) 1 each MISCELLANE ONCE ONE Stop: 12/19/18 04:01 Morphine Sulfate (Morphine Sulfate (Inj)) 4 mg IVP Q4HR PRN PRN Reason: Pain Last Admin: 12/17/18 17:26 Dose: 4 mg Documented by: Mupirocin (Bactroban Oint) 1 applic TOPICAL TID [facility] Pantoprazole Sodium (Protonix) 40 mg PO [facility] Last Admin: 12/17/18 09:07 Dose: 40 mg Documented by: Prazosin HCl (Minipress) 1 mg PO BID [facility] Last Admin: 12/17/18 09:08 Dose: 1 mg Documented by: Spironolactone (Aldactone) 25 mg PO BID [facility] Last Admin: 12/17/18 09:07 Dose: 25 mg Documented by: Home Medications Medication Instructions Recorded Confirmed Type Furosemide [Lasix] 20 mg PO DAILY 05/30/18 12/16/18 History Omeprazole 20 mg PO DAILY 05/30/18 12/16/18 History Prazosin [Minipress] 1 mg PO BID 05/30/18 12/16/18 History Spironolactone [Aldactone] 25 mg PO BID 05/30/18 12/16/18 History DULoxetine HCL [Cymbalta] 60 mg PO BID 08/23/18 12/16/18 History Sulfamethox-Tmp 800-160Mg [Bactrim 2 tab PO Q12HR 7 Days #14 tab 10/14/18 12/16/18 Rx DS 800-160 mg] Gabapentin 800 mg PO TID 12/16/18 12/16/18 History Ibuprofen [Motrin Ib] 800 mg PO Q6H PRN 12/16/18 12/16/18 History busPIRone HCl [Buspar] 15 mg PO BID 12/16/18 12/16/18 History Allergies Allergy/AdvReac Type Severity Reaction Status Date / Time latex Allergy Itching Verified 12/16/18 18:12 lithium AdvReac Vomiting Verified 12/16/18 18:12 pregabalin [From Lyrica] AdvReac Vomiting Verified 12/16/18 18:12 topiramate [From Topamax] AdvReac Abdominal Verified 12/16/18 18:12 Pain Physical Exam Vitals: Vital Signs Temp Pulse Resp BP Pulse Ox 12/17/18 15:00 97.6 F 75 20 108/63 94 L 12/17/18 05:00 97.4 F L 82 18 111/66 95 12/16/18 23:09 20 12/16/18 21:00 98.4 F 95 18 138/76 98 Intake and Output 12/17/18 12/17/18 12/17/18 06:59 14:59 22:59 Intake Total 500 200 Balance 500 200 Intake: Oral 500 200 Other: # Voids 2 2 42-year-old woman who appears older, and has superobesity HEENT: Anicteric conjunctiva are pink and moist nasal mucosa grossly intact without significant lesions, there is no thrush. Neck: The neck is supple without significant lymphadenopathy or thyromegaly. Lungs: Good bilateral air entry without significant crackles or wheezing. There is no significant bronchial sounds. There is no egophony or dullness. Heart: Regular rate and rhythm with an audible S1-S2, no S3 no S4. There is no significant murmur click or rub, PMI was nondisplaced. Abdomen: Positive bowel sounds soft and nontender without palpable masses or organomegaly. There was no guarding or rebound. Extremities: The upper extremities have excellent pulses they are symmetric, no significant petechiae or telangiectasia. No splinter hemorrhages were noted. he bilateral lower extremities have over the right foot plantar is the a There is evidence of the ulceration on the plantar surface which measures 1x1x0.2cm. The extensive noted erythema That was present on admission and is now somewhat improved. There are no other open lesions. She has evidence of significant tenderness on the plantar surface of the foot even in areas that are not red or with open ulceration. She relates that she has a chronic neuropathy. Neuro: Awake alert oriented to person place and time. There are no acute new gross focal sensory motor deficits. Results CBC & Chem 7: 12/16/18 16:57 12/16/18 16:57 Labs: Abnormal Lab Results - Last 24 Hours (Table) 11/02/19 Range/Units 13:49 ESR 25 H (0-20) mm/hr Laboratory Results WBC 11.7 k/uL (3.8-10.6) H 12/16/18 16:57 RBC 4.31 m/uL (3.80-5.40) 12/16/18 16:57 Hgb 13.7 gm/dL (11.4-16.0) 12/16/18 16:57 Hct 41.0 % (34.0-46.0) 12/16/18 16:57 MCV 95.2 fL (80.0-100.0) 12/16/18 16:57 MCH 31.9 pg (25.0-35.0) 12/16/18 16:57 MCHC 33.5 g/dL (31.0-37.0) 12/16/18 16:57 RDW 13.4 % (11.5-15.5) 12/16/18 16:57 Plt Count 209 k/uL (150-450) 12/16/18 16:57 Neutrophils % 75 % 12/16/18 16:57 Lymphocytes % 13 % 12/16/18 16:57 Monocytes % 7 % 12/16/18 16:57 Eosinophils % 3 % 12/16/18 16:57 Basophils % 1 % 12/16/18 16:57 Neutrophils # 8.8 k/uL (1.3-7.7) H 12/16/18 16:57 Lymphocytes # 1.5 k/uL (1.0-4.8) 12/16/18 16:57 Monocytes # 0.8 k/uL (0-1.0) 12/16/18 16:57 Eosinophils # 0.3 k/uL (0-0.7) 12/16/18 16:57 Basophils # 0.1 k/uL (0-0.2) 12/16/18 16:57 ESR 25 mm/hr (0-20) H 12/17/18 13:49 PT 9.5 sec (9.0-12.0) 12/16/18 16:57 INR 0.9 (<1.2) 12/16/18 16:57 APTT 25.2 sec (22.0-30.0) 12/16/18 16:57 Sodium 138 mmol/L (137-145) 12/16/18 16:57 Potassium 4.5 mmol/L (3.5-5.1) 12/16/18 16:57 Chloride 105 mmol/L (98-107) 12/16/18 16:57 Carbon Dioxide 26 mmol/L (22-30) 12/16/18 16:57 Anion Gap 7 mmol/L 12/16/18 16:57 BUN 10 mg/dL (7-17) 12/16/18 16:57 Creatinine 0.89 mg/dL (0.52-1.04) 12/16/18 16:57 Est GFR (CKD-EPI)AfAm >90 (>60 ml/min/1.73 sqM) 12/16/18 16:57 Est GFR (CKD-EPI)NonAf 81 (>60 ml/min/1.73 sqM) 12/16/18 16:57 Glucose 117 mg/dL (74-99) H 12/16/18 16:57 Calcium 9.5 mg/dL (8.4-10.2) 12/16/18 16:57 Phosphorus 4.5 mg/dL (2.5-4.5) 12/16/18 16:57 Magnesium 2.1 mg/dL (1.6-2.3) 12/16/18 16:57 Total Bilirubin 0.5 mg/dL (0.2-1.3) 12/16/18 16:57 AST 18 U/L (14-36) 12/16/18 16:57 ALT 23 U/L (9-52) 12/16/18 16:57 Alkaline Phosphatase 78 U/L (38-126) 12/16/18 16:57 Total Protein 7.1 g/dL (6.3-8.2) 12/16/18 16:57 Albumin 3.9 g/dL (3.5-5.0) 12/16/18 16:57 TSH 2.810 mIU/L (0.465-4.680) 12/17/18 13:49 Assessment and Plan (1) Cellulitis of right lower extremity Current Visit: Yes Status: Acute Code(s): L03.115 - CELLULITIS OF RIGHT LOWER LIMB SNOMED Code(s): 013438511 (2) Puncture wound of right foot Narrative/Plan: 42-year-old female superobesity, hypertension, chronic lower extremity edema, without diabetes is developed an ulceration of the right foot plantar surface. The exam she is evidence of some deformities of the foot which results in a pressure point the results callous formation. This is the area where she uses the callus file where she then resulted in injury that turned into a blister and then the open ulceration that she has. He became infected and she developed the extensive cellulitis. She has history of MRSA and vancomycin is being utilized. Continue local wound care with the alginate product that can be changed daily. It can be protected with some foam. Cultures in process which will further direct antibiotic therapy at the time of discharge. She's had a significant improvement already hopefully will go home on oral antibiotic therapy. However given the difficulties a bone scan has been requested for further evaluate if there is a deeper infection that would require an alternative plan. She will he she is up-to-date with her tetanus vaccine. Multivitamin was ordered. Current Visit: Yes Status: Acute Code(s): S91.331A - PUNCTURE WOUND WITHOUT FOREIGN BODY, RIGHT FOOT, INIT ENCNTR SNOMED Code(s): 94219915566583464 (3) Unspecified mood [affective] disorder Current Visit: No Status: Acute Code(s): F39 - UNSPECIFIED MOOD [AFFECTIVE] DISORDER SNOMED Code(s): 73486047
[2018-12-17] MEDS: MUPIROCIN 2% OINT 22 GM TUBE TOPICAL SCH ×2 (20:21→20:22)
--- NOTE | 2018-12-17 22:57 | HP ---
HISTORY AND PHYSICAL 42-year-old white female came in with right lower extremity pain, persistent, mid bottom of her foot, failed outpatient treatment with Bactrim. Also complaining of an abscess versus swelling under the right axilla, hard firm. History of asthma, COPD, methamphetamine and polysubstance abuse. Apparently she has been in a rehab center for 60 days clean. Admitted for cellulitis of the foot with a puncture wound on the bottom of her right foot. This with positive MRSA. HOME MEDS: Lasix 20 daily, omeprazole 20 daily, Minipress 1 mg b.i.d., Aldactone 25 b.i.d., Cymbalta 60 b.i.d., tramadol 100 b.i.d. ALLERGIES: LATEX AND LITHIUM, LYRICA, TOPAMAX,. Neuropathy, osteoarthritis of the knees, lumbar disc disease, history of MRSA. PAST SURGICAL HISTORY: Hysterectomy, orthopedic surgery, tubal ligation SOCIAL HISTORY: Past drug use, cocaine and marijuana, methamphetamine. FAMILY HISTORY: Mother with cancer of the colon. Father with bipolar. PHYSICAL EXAMINATION: GENERAL: White female obese. BMI is over 40 CARDIOVASCULAR: S1-S2. LUNGS: Transmitted upper sounds. GI is distended due to obesity. INTEGUMENT: Her red swollen axillary mass of her right axilla. She has a pencil eraser type hole in the bottom of her right foot mid dorsum surrounding erythema up the leg. CARDIOVASCULAR S1-S2. Lungs clear. PSYCH: Fair mood and affect. NEUROLOGIC alert and oriented x3. Temp 97.9, pulse 107, respiratory 16-20, blood pressure 140s over 70s. ASSESSMENT AND PLAN: 1. Puncture of the right foot cellulitis of the right lower extremities, failed outpatient treatment with MRSA infection. 2. Chronic ulcers to the right foot. Possible axillary mass versus abscess. Ultrasound will be ordered. Nuclear medicine, bone scan is ordered. Continue current treatment. MMODL / IJN: [id number] /
[2018-12-18] MEDS: NICOTINE 21MG/24HR PATCH TRANSDERM SCH ×2 (00:39→08:24)
[2018-12-18] MEDS: MORPHINE SULFATE 4 MG/ML SYRINGE IVP PRN ×6 (01:13→20:09)
[2018-12-18] MEDS: VANCOMYCIN 2,250 MG in SODIUM CHLORIDE 0.9% 500 ML 500 ML IVPB SCH ×2 (04:19→16:20)
[2018-12-18] MEDS: busPIRone HCl 10 MG TAB PO SCH ×2 (08:13→21:53)
[2018-12-18] MEDS: GABAPENTIN 400 MG CAP PO SCH ×3 (08:14→21:53)
[2018-12-18] MEDS: PANTOPRAZOLE 40 MG TABLET PO SCH (08:14)
[2018-12-18] MEDS: FUROSEMIDE 20 MG TAB PO SCH (08:14)
[2018-12-18] MEDS: SPIRONOLACTONE 25 MG TAB PO SCH ×2 (08:14→21:53)
[2018-12-18] MEDS: SODIUM CHLORIDE 0.9% 1,000 ML IV SCH (08:14)
[2018-12-18] MEDS: DULoxetine HCL 60 MG CAPSULE.DR PO SCH ×2 (08:14→21:54)
[2018-12-18] MEDS: MUPIROCIN 2% OINT 22 GM TUBE TOPICAL SCH ×3 (08:15→21:54)
[2018-12-18] MEDS: PRAZOSIN 1 MG CAP PO SCH ×2 (08:15→21:53)
[2018-12-18 09:21] LABS: African American GFR (CKD) >90 (>60 ml/min/1.73 sqM)
--- NOTE | 2018-12-18 11:04 | NM ---
EXAMINATION TYPE: NM bone 3 phase DATE OF EXAM: 12/18/2018 COMPARISON: Previous study dated 08/08/2012. HISTORY: Right foot pain. Triple phase bone scintigraphy was performed following the injection of 26.3 mCi Tc 99m MDP. Immedia te images and 3.25 hours post injection images acquired. FINDINGS: Blood flow is symmetric to both legs. Pool imaging shows increased activity in the forefeet bilateral ly. Delayed static images show increased activity in the ankles and forefeet bilaterally. This activi ty is symmetric. This is likely degenerative in nature. IMPRESSION: Activity in both ankles and forefeet is likely degenerative. I do not see convincing evidence of oste omyelitis.
--- NOTE | 2018-12-18 16:58 | PN ---
PROGRESS NOTE 42-year-old white female was admitted with cellulitis of her right leg with pinpoint hole in her lower dorsum of her foot. Remains on broad-spectrum vancomycin due to positive MRSA. Waiting for cultures to come back and send home on oral antibiotics. Her leg appears to be improving. She has a phlegmon in her right axilla she wants drained. Consult with Dr. Block for that is pending. Discussed with her, thyroid is normal. She is nondiabetic. Cardiovascular: S1, S2. ENDOCRINE: BMI is over 40. GI is soft. Axilla large phlegmon right axilla. IMPRESSION: 1. Pain, cellulitis of right leg. 2. MRSA type infection, right dorsum of the foot. 3. Phlegmon, right axilla. Continue possible IV antibiotics. Possible biopsy. Incision and drainage. MMDOMIL / IJN: [id number] /
[2018-12-18] MEDS: IBUPROFEN 800 MG TAB PO PRN (21:55)
[2018-12-19] MEDS: MORPHINE SULFATE 4 MG/ML SYRINGE IVP PRN ×6 (00:02→20:21)
[2018-12-19] MEDS: SODIUM CHLORIDE 0.9% 1,000 ML IV SCH (03:34)
[2018-12-19] MEDS ORDERED: VANCOMYCIN TROUGH DUE 1 EACH MISC MISCELLANE ONE (04:00)
[2018-12-19 04:21] LABS: African American GFR (CKD) >90 (>60 ml/min/1.73 sqM)
[2018-12-19] MEDS: VANCOMYCIN 2,250 MG in SODIUM CHLORIDE 0.9% 500 ML 500 ML IVPB SCH ×2 (05:06→16:05)
[2018-12-19] MEDS: PRAZOSIN 1 MG CAP PO SCH ×2 (07:59→22:09)
[2018-12-19] MEDS: NICOTINE 21MG/24HR PATCH TRANSDERM SCH (07:59)
[2018-12-19] MEDS: busPIRone HCl 10 MG TAB PO SCH ×2 (07:59→22:09)
[2018-12-19] MEDS: FUROSEMIDE 20 MG TAB PO SCH (08:00)
[2018-12-19] MEDS: PANTOPRAZOLE 40 MG TABLET PO SCH (08:00)
[2018-12-19] MEDS: DULoxetine HCL 60 MG CAPSULE.DR PO SCH ×2 (08:00→22:09)
[2018-12-19] MEDS: SPIRONOLACTONE 25 MG TAB PO SCH ×2 (08:00→22:09)
[2018-12-19] MEDS: MUPIROCIN 2% OINT 22 GM TUBE TOPICAL SCH ×3 (08:01→22:10)
[2018-12-19] MEDS: GABAPENTIN 400 MG CAP PO SCH ×3 (08:07→22:11)
[2018-12-19 11:01] LABS: Hypochromasia Slight; MCH 31.5 pg (25.0-35.0); MCHC 31.8 g/dL (31.0-37.0); MCV 98.9 fL (80.0-100.0); Mean Platelet Volume 7.2; Platelet Count 222 k/uL (150-450); RBC 4.14 m/uL (3.80-5.40); RDW 13.2 % (11.5-15.5); WBC 6.9 k/uL (3.8-10.6)
[2018-12-19 11:04] LABS: Anion Gap 8 mmol/L; Blood Urea Nitrogen 13 mg/dL (7-17); Calcium 9.2 mg/dL (8.4-10.2); Carbon Dioxide 24 mmol/L (22-30); Chloride 106 mmol/L (98-107); Glucose 140 mg/dL (74-99); Potassium 4.7 mmol/L (3.5-5.1); Sodium 138 mmol/L (137-145)
--- NOTE | 2018-12-19 13:39 | P.GSCN ---
History of Present Illness Consult date: 12/19/18 Reason for Consult: axilla phlegmon Requesting physician: Alberto Gonzalez History of present illness: CHIEF COMPLAINT: Axilla phlegmon HISTORY OF PRESENT ILLNESS: 42-year-old female who was admitted to hospital secondary to foot wound. General surgery was consulted to evaluate possible abscess of axilla. Patient reports a lump under her right axilla region that started on . She reports the area has become more tender and has increased in size. She denies drainage from the area. She states she had an abscess similar to this one in September 2018 and it was drained in the ER. PAST MEDICAL HISTORY: See list. PAST SURGICAL HISTORY: See list. SOCIAL HISTORY: No illicit drug use. REVIEW OF SYSTEMS: CONSTITUTIONAL: Denies fever or chills. HEENT: Denies blurred vision, vision changes, or eye pain. Denies hemoptysis CARDIOVASCULAR: Denies chest pain or pressure. RESPIRATORY: No shortness of breath. GASTROINTESTINAL: Refer to HPI for pertinent findings HEMATOLOGIC: Denies bleeding disorders. GENITOURINARY: Denies any blood in urine. SKIN: Reports chronic foot wound. Reports abscess to right axilla. PHYSICAL EXAM: VITAL SIGNS: Reviewed. GENERAL: Well-developed in no acute distress. HEENT: No sclera icterus. Extraocular movements grossly intact. Moist buccal mucosa. Head is atraumatic, normocephalic. ABDOMEN: Soft. Nondistended. Nontender. NEUROLOGIC: Alert and oriented. Cranial nerves II through XII grossly intact. SKIN: Firm mass palpated to right axilla. No open wounds or drainage. Mass te nder with palpation with surrounding erythema. LABORATORY DATA: WBC 6.9. Hemoglobin 13.0. Platelet count 222. IMAGING: Ultrasound right axilla: Possible lesion visualized with indistinguishable borders with us in size of 3.4-3.3 x 3.6 cm. Nonvascular. No fluid collection visualized. Impression reveals poorly marginated 4 cm solid mass in the area of concern could be a phlegmon. The appearance is nonspecific. ASSESSMENT: 1. Possible abscess of right axilla PLAN: 1. Regular diet. NPO at midnight 2. Continue antibiotics per ID 3. Patient will be re-evaluated tomorrow morning by Dr. Block. She is tentatively boarded for I&D of right axilla abscess tomorrow. Nurse practitioner note has been reviewed by physician. Signing provider agrees with the documented findings, assessment, and plan of care. Past Medical History Past Medical History: Asthma, COPD, Fibromyalgia, GERD/Reflux, Hypertension, Musculoskeletal Disorder, Osteoarthritis (OA) Additional Past Medical History / Comment(s): Pt denies HTN/CHF but takes water pills. Neuropathy feet/legs and hands, bulging discs, chronic low back pain, DDD, pt needs bilateral total knees states, "it's bone on bone.", past cellulitis bilateral lower legs, unsteady gait, lindsey fever as a child. History of Any Multi-Drug Resistant Organisms: MRSA Year Discovered:: 12/11/18 MDRO Source:: FOOT Past Surgical History: Hysterectomy, Orthopedic Surgery, Tubal Ligation Additional Past Surgical History / Comment(s): Right knee arthroscopic surg x3; LEEP procedure, partial hysterectomy 2009/ovaries intact, colonoscopy 2013, Past Anesthesia/Blood Transfusion Reactions: No Reported Reaction Past Psychological History: Anxiety, Bipolar, Depression Additional Psychological History / Comment(s): [facility] patient. Past history of substance abuse. single. Did not relate to having children. Does have a pet dog. No travel. The experience. Active tobacco smoker. Denies recreational drug use or alcohol use Smoking Status: Current some day smoker Past Alcohol Use History: None Reported Past Drug Use History: Cocaine, Marijuana, Methamphetamine Additional Drug Use History / Comment(s): Past history of substance abuse. Pt. denies drug use at this time. - Past Family History Mother Family Medical History: Cancer, Hypertension Additional Family Medical History / Comment(s): neuropathy; Mother had Colon Cancer Father Family Medical History: No Reported History Additional Family Medical History / Comment(s): Father is bipolar Medications and Allergies Home Medications Medication Instructions Recorded Confirmed Type Furosemide [Lasix] 20 mg PO DAILY 05/30/18 12/16/18 History Omeprazole 20 mg PO DAILY 05/30/18 12/16/18 History Prazosin [Minipress] 1 mg PO BID 05/30/18 12/16/18 History Spironolactone [Aldactone] 25 mg PO BID 05/30/18 12/16/18 History DULoxetine HCL [Cymbalta] 60 mg PO BID 08/23/18 12/16/18 History Sulfamethox-Tmp 800-160Mg [Bactrim 2 tab PO Q12HR 7 Days #14 tab 10/14/18 12/16/18 Rx DS 800-160 mg] Gabapentin 800 mg PO TID 12/16/18 12/16/18 History Ibuprofen [Motrin Ib] 800 mg PO Q6H PRN 12/16/18 12/16/18 History busPIRone HCl [Buspar] 15 mg PO BID 12/16/18 12/16/18 History Allergies Allergy/AdvReac Type Severity Reaction Status Date / Time latex Allergy Itching Verified 12/16/18 18:12 lithium AdvReac Vomiting Verified 12/16/18 18:12 pregabalin [From Lyrica] AdvReac Vomiting Verified 12/16/18 18:12 topiramate [From Topamax] AdvReac Abdominal Verified 12/16/18 18:12 Pain Surgical - Exam Vital Signs Temp Pulse Resp BP Pulse Ox 97.9 F 107 H 18 148/76 95 12/16/18 16:01 12/16/18 16:01 12/16/18 16:01 12/16/18 16:01 12/16/18 16:01 Results - Labs 12/19/18 03:52 12/19/18 03:57 Abnormal Lab Results - Last 24 Hours (Table) 12/19/18 Range/Units 03:57 Glucose 140 H (74-99) mg/dL Microbiology - Last 24 Hours (Table) 12/16/18 16:57 Blood Culture - Preliminary Blood No Growth after 48 hours Diabetes panel 12/19/18 Range/Units 03:57 Sodium 138 (137-145) mmol/L Potassium 4.7 (3.5-5.1) mmol/L Chloride 106 (98-107) mmol/L Carbon Dioxide 24 (22-30) mmol/L BUN 13 (7-17) mg/dL Creatinine 0.67 (0.52-1.04) mg/dL Glucose 140 H (74-99) mg/dL Calcium 9.2 (8.4-10.2) mg/dL Calcium panel 12/19/18 Range/Units 03:57 Calcium 9.2 (8.4-10.2) mg/dL Pituitary panel 12/19/18 Range/Units 03:57 Sodium 138 (137-145) mmol/L Potassium 4.7 (3.5-5.1) mmol/L Chloride 106 (98-107) mmol/L Carbon Dioxide 24 (22-30) mmol/L BUN 13 (7-17) mg/dL Creatinine 0.67 (0.52-1.04) mg/dL Glucose 140 H (74-99) mg/dL Calcium 9.2 (8.4-10.2) mg/dL Adrenal panel 12/19/18 Range/Units 03:57 Sodium 138 (137-145) mmol/L Potassium 4.7 (3.5-5.1) mmol/L Chloride 106 (98-107) mmol/L Carbon Dioxide 24 (22-30) mmol/L BUN 13 (7-17) mg/dL Creatinine 0.67 (0.52-1.04) mg/dL Glucose 140 H (74-99) mg/dL Calcium 9.2 (8.4-10.2) mg/dL
--- NOTE | 2018-12-19 15:31 | P.PN ---
Subjective Progress Note Date: 12/19/18 This is a 42-year-old female with MRSA cellulitis of the right leg/ foot and multiple other medical issues. Maintained on vancomycin, afebrile, normal WBC. Preliminary blood cultures negative at 48 hours. Patient also presents with an increasing in size phlegmmon, distal to the right axilla. Patient complains of increased right armpit pain since . Surgical consult in place with recommendations pending. Objective - Vital Signs Vital signs: Vital Signs Temp 97.2 F L 12/19/18 13:36 Pulse 77 12/19/18 13:36 Resp 16 12/19/18 13:36 BP 151/97 12/19/18 13:36 Pulse Ox 98 12/19/18 13:36 Intake & Output 12/18/18 12/19/18 12/19/18 18:59 06:59 18:59 Intake Total 640 1800 750 Balance 640 1800 750 Intake: Intake, IV Titration 1800 Amount Sodium Chloride 0.9% 1, 800 000 ml @ 50 mls/hr IV . Q20H MARIA DEL CARMEN Rx#:[id number] Vancomycin 2,250 mg In 1000 Sodium Chloride 0.9% 500 ml 500 ml @ 167 mls/hr IVPB Q12H MARIA DEL CARMEN Rx#: [id number] Oral 640 750 Other: # Voids 2 3 3 - Exam PHYSICAL EXAM: VITAL SIGNS: [As above] GENERAL: Sitting up in bed, no acute distress. HEENT: Conjunctivae normal. eyes normal. Oral mucosa moist NECK: No JVD. No thyroid enlargement. Repeat axilla abscess. CARDIOVASCULAR: S1, S2 regular.. No murmur RESPIRATION: Breath sounds diminished in the bases. No rhonchi or crackles. No bronchial breathing. ABDOMEN: Soft, nontender . No guarding. no masses palpable.Bowel sounds heard. LEGS: Right foot dressing clean dry and intact. PSYCHIATRY: Alert and oriented X3, mood and affect normal. NERVOUS SYSTEM: Cranial N 2-12 grossly normal. Moves all 4 limbs. No focal deficits. Strength and sensation grossly intact.. 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 Surgical evaluation pending with potential I&D with biopsy tomorrow. Maintain IV antibiotics. Further recommendations to follow. The impression and plan of care has been dictated as directed. : I performed a history and examination of this patient, discussed the same with the dictator. I agree with the dictator's note ,documented as a scribe. Any additional findings or plans will be noted.
[2018-12-20] MEDS: MORPHINE SULFATE 4 MG/ML SYRINGE IVP PRN ×3 (00:26→08:04)
[2018-12-20] MEDS: SODIUM CHLORIDE 0.9% 1,000 ML IV SCH (00:29)
[2018-12-20] MEDS: VANCOMYCIN 2,250 MG in SODIUM CHLORIDE 0.9% 500 ML 500 ML IVPB SCH (05:30)
[2018-12-20] MEDS: NICOTINE 21MG/24HR PATCH TRANSDERM SCH (08:00)
[2018-12-20] MEDS: GABAPENTIN 400 MG CAP PO SCH (08:00)
[2018-12-20] MEDS: busPIRone HCl 10 MG TAB PO SCH (08:00)
[2018-12-20] MEDS: FUROSEMIDE 20 MG TAB PO SCH (08:01)
[2018-12-20] MEDS: SPIRONOLACTONE 25 MG TAB PO SCH (08:01)
[2018-12-20] MEDS: PANTOPRAZOLE 40 MG TABLET PO SCH (08:01)
[2018-12-20] MEDS: DULoxetine HCL 60 MG CAPSULE.DR PO SCH (08:01)
[2018-12-20] MEDS: PRAZOSIN 1 MG CAP PO SCH (08:02)
[2018-12-20] MEDS: MUPIROCIN 2% OINT 22 GM TUBE TOPICAL SCH (08:03)
[2018-12-20] MEDS ORDERED: SODIUM CHLORIDE 0.9% 1,000 ML IV ONE (11:15)
--- NOTE | 2018-12-20 11:58 | P.PN ---
Progress Note - Text Progress Note Date: 12/20/18 Patient will undergo incision and drainage of right axillary abscess today.
[2018-12-20] MEDS ORDERED: HEPARIN SODIUM,PORCINE 5,000 UNIT/ML 1 ML VIAL SQ ONE (12:05)
[2018-12-20] MEDS ORDERED: KETOROLAC 30 MG/ML 1 ML VIAL ONE (12:21)
[2018-12-20] MEDS ORDERED: HYDROmorphone (PF) 1 MG/ML ONE (12:21)
[2018-12-20] MEDS ORDERED: LIDOCAINE 1% INJ 10MG/ML (20 ML MDV) ONE (12:21)
[2018-12-20] MEDS ORDERED: MIDAZOLAM 2 MG/2 ML VIAL ONE (12:21)
[2018-12-20] MEDS ORDERED: PROPOFOL 10 MG/ML 20 ML VIAL IV ONE (12:21)
[2018-12-20] MEDS ORDERED: KETAMINE 10 MG/ML 20 ML VIAL ONE (12:21)
[2018-12-20] MEDS ORDERED: GLYCOPYRROLATE 0.2 MG/ML 2 ML VIAL ONE (12:21)
[2018-12-20] MEDS ORDERED: fentaNYL (PF) 50 MCG/ML 2 ML AMP ONE (12:21)
[2018-12-20] MEDS ORDERED: BUPIVACAINE (PF) 0.25% 30 ML VIAL SQ ONE ×2 (12:53)
[2018-12-20] MEDS ORDERED: LACTATED RINGERS 1,000 ML IV ONE (12:56)
--- NOTE | 2018-12-20 13:01 | P.OP ---
Date of Procedure: 12/20/18 Preoperative Diagnosis: Right axillary abscess Postoperative Diagnosis: Right axillary abscess Procedure(s) Performed: Incision and drainage of right axillary abscess Anesthesia: ASAD Surgeon: Ilya Block Estimated Blood Loss (ml): 5 Pathology: other (Culture) Condition: stable Disposition: PACU Description of Procedure: The patient's placed on the operating table in the supine position. She received IV sedation. Her right axilla was prepped and draped usual sterile fashion. The skin was anesthetized 1% local Xylocaine. A skin incision was made over the abscess and approximately 20 mL of purulent fluid was removed. The abscess cavity is probed with a hemostat. The wound was cultured. The wound was packed with iodoform gauze. All sent to recovery in stable condition.
[2018-12-20] MEDS ORDERED: ACETAMINOPHEN TAB 325 MG TAB PO PRN (13:42)
[2018-12-20] MEDS ORDERED: traMADol 50 MG TAB PO PRN (13:43)
[2018-12-20] MEDS ORDERED: ACETAMINOPHEN TAB 500 MG TAB PO PRN (13:44)
[2018-12-20] MEDS ORDERED: IBUPROFEN 600 MG TAB PO PRN (13:46)
[2018-12-20 14:11] VITALS: BP 132/94; RESP 18; TEMP 97.6
[2018-12-20 14:46] VITALS: PULSE 76
--- NOTE | 2018-12-20 14:55 | P.DS ---
Providers Date of admission: 12/16/18 16:27 Expected date of discharge: 12/20/18 Attending physician: Alberto Gonzalez Consults: 12/16/18 18:24 Consult Physician Routine Consulting Provider: Alberto Browne Consult Reason/Comments: roOsteo Do you want consulting provider notified?: Yes 12/18/18 11:16 Consult Physician Routine Consulting Provider: Ilya Block Consult Reason/Comments: axilla phlegmon Do you want consulting provider notified?: Yes Primary care physician: [place] [facility] Course: Final Diagnoses: Right leg cellullitis, chronic dorsum of foot wound with MRSA -Right Axilla abscess, status post I&D Hospital course:This is a 42-year-old female with MRSA cellulitis of the right leg/ foot and multiple other medical issues. Maintained on vancomycin, afebrile, normal WBC. Preliminary blood cultures negative at 48 hours. Patient also presents with an increasing in size phlegmmon, distal to the right axilla. Patient complains of increased right armpit pain since . Surgical consult in place with recommendations pending. Evaluated by surgery, status post I&D of right axillary abscess. Tolerated procedure well. Cleared by infectious disease and surgery for discharge. Patient is being discharged home in a stable condition with guarded prognosis. EXAM: GENERAL: Alert and oriented 3, no acute distress. SKIN:Right axilla site dressing clean dry and intact CARDIOVASCULAR: S1, S2 regular.No murmur RESPIRATION: Breath sounds diminished in the bases. ABDOMEN: Soft, nontender . No guarding. no masses palpable.Bowel sounds heard. LEGS: Right foot dressing clean dry and intact. NERVOUS SYSTEM: No focal deficits. The impression and plan of care has been dictated as directed. : I performed a history and examination of this patient, discussed the same with the dictator. I agree with the dictator's note ,documented as a scribe. Any additional findings or plans will be noted. Patient Condition at Discharge: Stable Plan - Discharge Summary Discharge Rx Participant: No New Discharge Prescriptions: New Cephalexin [Keflex] 500 mg PO Q8HR #21 cap Nicotine 21Mg/24Hr Patch [Habitrol] 1 patch TRANSDERM DAILY #30 patch Acetaminophen Tab [Tylenol] 1,000 mg PO Q6HR PRN tab PRN Reason: Fever and/ or MILD Pain Continue Omeprazole 20 mg PO DAILY Spironolactone [Aldactone] 25 mg PO BID Furosemide [Lasix] 20 mg PO DAILY Prazosin [Minipress] 1 mg PO BID DULoxetine HCL [Cymbalta] 60 mg PO BID busPIRone HCl [Buspar] 15 mg PO BID Ibuprofen [Motrin Ib] 800 mg PO Q6H PRN PRN Reason: Pain Or Fever > 100.5 Gabapentin 800 mg PO TID Discontinued Sulfamethox-Tmp 800-160Mg [Bactrim DS 800-160 mg] 2 tab PO Q12HR 7 Days #14 tab Discharge Medication List Furosemide [Lasix] 20 mg PO DAILY 05/30/18 [History] Omeprazole 20 mg PO DAILY 05/30/18 [History] Prazosin [Minipress] 1 mg PO BID 05/30/18 [History] Spironolactone [Aldactone] 25 mg PO BID 05/30/18 [History] DULoxetine HCL [Cymbalta] 60 mg PO BID 08/23/18 [History] Gabapentin 800 mg PO TID 12/16/18 [History] Ibuprofen [Motrin Ib] 800 mg PO Q6H PRN 12/16/18 [History] busPIRone HCl [Buspar] 15 mg PO BID 12/16/18 [History] Acetaminophen Tab [Tylenol] 1,000 mg PO Q6HR PRN tab 12/20/18 [Rx] Cephalexin [Keflex] 500 mg PO Q8HR #21 cap 12/20/18 [Rx] Nicotine 21Mg/24Hr Patch [Habitrol] 1 patch TRANSDERM DAILY #30 patch 12/20/18 [Rx] Follow up Appointment(s)/Referral(s): Alberto Gonzalez MD [Primary Care Provider] - 12/22/18 1:00 pm [facility], [NON-STAFF] - Ilya Block MD [STAFF PHYSICIAN] - 12/27/18 3:00 pm Patient Instructions/Handouts: MRSA (Methicillin-Resistant Staphylococcus Aureus) (DC), Abscess (ED), Incision and Drainage (DC) Activity/Diet/Wound Care/Special Instructions: pack right axilla wound with iodaform gauze and cover with dry gauze daily. showers are ok. optifoam /abd pad / roll gauze dressing to right foot daily. Discharge Disposition: HOME WITH HOME HEALTH SERVICES
== END 2018-12-20 16:18 | disposition home health service (06) | DRG 603 ==
LOC: EC 16:00 → 4MS4W 16:27
PROVIDERS: ADMIT Family Medicine; ATTEND Family Medicine
PROC: 0X940ZZ Drainage of Right Axilla, Open Approach (ICD-10-PCS; principal; 2018-12-20 11:30)
DX: L03.115 Cellulitis of right lower limb (principal); Z68.44 Body mass index [BMI] 60.0-69.9, adult; L02.411 Cutaneous abscess of right axilla; S91.331A Puncture wound without foreign body, right foot, initial encounter; L97.519 Non-pressure chronic ulcer of other part of right foot with unspecified severity; E66.01 Morbid (severe) obesity due to excess calories; G62.9 Polyneuropathy, unspecified; B95.62 Methicillin resistant Staphylococcus aureus infection as the cause of diseases classified elsewhere; F17.200 Nicotine dependence, unspecified, uncomplicated; F32.9 Major depressive disorder, single episode, unspecified; F41.9 Anxiety disorder, unspecified; G89.29 Other chronic pain; I10 Essential (primary) hypertension; J44.9 Chronic obstructive pulmonary disease, unspecified; M79.7 Fibromyalgia; K21.9 Gastro-esophageal reflux disease without esophagitis; R60.9 Edema, unspecified; L84 Corns and callosities; M17.0 Bilateral primary osteoarthritis of knee; M51.36 Other intervertebral disc degeneration, lumbar region; Z79.899 Other long term (current) drug therapy; Z88.8 Allergy status to other drugs, medicaments and biological substances; Z91.040 Latex allergy status; Z90.711 Acquired absence of uterus with remaining cervical stump; Z86.14 Personal history of Methicillin resistant Staphylococcus aureus infection; Z98.51 Tubal ligation status; Z80.0 Family history of malignant neoplasm of digestive organs; Z81.8 Family history of other mental and behavioral disorders; Z82.49 Family history of ischemic heart disease and other diseases of the circulatory system
CPT/HCPCS: 78315; 80048; 80053; 80202; 82565; 83036; 83735; 84100; 84443; 85025; 85027; 85610; 85652; 85730; 87040; 87070; 87075; 87077; 87186; 87205; 90686; 90732; 93005; 96374; 99285

== ENCOUNTER 2019-02-13 16:53 | Emergency (ER) | payer MEDICARE, OTHER ==
--- NOTE | 2019-02-13 17:54 | ED ---
Female Urogenital HPI <Lien Segal - Last Filed: 02/13/19 17:52> <Wen Waters - Last Filed: 02/14/19 00:05> - General Stated complaint: Female - History of Present Illness Initial comments: seen in triage one night stand 2 wks ago, vaginal discharge/burning x 2-3 days now, right side pain (hx of hysterectomy) urine/swab orders in (Lien Segal) 43 you feel presenting for vaginal discharge pelvic pain. Patient states that her inside of her vagina as burning. She states she had sex with a "man whore". Patient states this was 2 weeks ago for the past 3 days she has had the burning sensation in her vagina as well as frothy discharge. Patient denies fever or flu like symptoms. Patient denies any nausea vomiting per patient states she has had a partial hysterectomy. Patient denies any upper abdominal pain. R emaining ROS (-). (Wen Waters) - Related Data Home Medications Medication Instructions Recorded Confirmed Furosemide [Lasix] 20 mg PO DAILY 05/30/18 12/16/18 Omeprazole 20 mg PO DAILY 05/30/18 12/16/18 Prazosin [Minipress] 1 mg PO BID 05/30/18 12/16/18 Spironolactone [Aldactone] 25 mg PO BID 05/30/18 12/16/18 DULoxetine HCL [Cymbalta] 60 mg PO BID 08/23/18 12/16/18 Gabapentin 800 mg PO TID 12/16/18 12/16/18 Ibuprofen [Motrin Ib] 800 mg PO Q6H PRN 12/16/18 12/16/18 busPIRone HCl [Buspar] 15 mg PO BID 12/16/18 12/16/18 Previous Rx's Medication Instructions Recorded Acetaminophen Tab [Tylenol] 1,000 mg PO Q6HR PRN tab 12/20/18 Cephalexin [Keflex] 500 mg PO Q8HR #21 cap 12/20/18 Nicotine 21Mg/24Hr Patch [Habitrol] 1 patch TRANSDERM DAILY #30 patch 12/20/18 Doxycycline [Vibramycin] 100 mg PO BID 14 Days #28 capsule 02/13/19 metroNIDAZOLE [Flagyl] 2,000 mg PO Q8HR 1 Days #4 tab 02/14/19 Allergies Allergy/AdvReac Type Severity Reaction Status Date / Time latex Allergy Itching Verified 02/13/19 17:56 lithium AdvReac Vomiting Verified 02/13/19 17:56 pregabalin [From Lyrica] AdvReac Vomiting Verified 02/13/19 17:56 topiramate [From Topamax] AdvReac Abdominal Verified 02/13/19 17:56 Pain Review of Systems ROS Other: All systems not noted in ROS Statement are negative. <Lien Segal L - Last Filed: 02/13/19 17:52> ROS Other: All systems not noted in ROS Statement are negative. <Wen Waters L - Last Filed: 02/14/19 00:05> ROS Statement: Those systems with pertinent positive or pertinent negative responses have been documented in the HPI. Past Medical History Past Medical History: Asthma, COPD, Fibromyalgia, GERD/Reflux, Hypertension, Musculoskeletal Disorder, Osteoarthritis (OA) Additional Past Medical History / Comment(s): Pt denies HTN/CHF but takes water pills. Neuropathy feet/legs and hands, bulging discs, chronic low back pain, DDD, pt needs bilateral total knees states, "it's bone on bone.", past cellulitis bilateral lower legs, unsteady gait, lindsey fever as a child. History of Any Multi-Drug Resistant Organisms: MRSA Date of last positivie culture/infection: 12/11/18 MDRO Source:: FOOT Past Surgical History: Hysterectomy, Orthopedic Surgery, Tubal Ligation Additional Past Surgical History / Comment(s): Right knee arthroscopic surg x3; LEEP procedure, partial hysterectomy 2009/ovaries intact, colonoscopy 2013, Past Anesthesia/Blood Transfusion Reactions: No Reported Reaction Past Psychological History: Anxiety, Bipolar, Depression Additional Psychological History / Comment(s): [facility] [address] patient. Past history of substance abuse. single. Did not relate to having children. Does have a pet dog. No travel. The experience. Active tobacco smoker. Denies recreational drug use or alcohol use Smoking Status: Current some day smoker Past Alcohol Use History: None Reported Past Drug Use History: Cocaine, Marijuana, Methamphetamine Additional Drug Use History / Comment(s): Past history of substance abuse. Pt. denies drug use at this time. - Past Family History Mother Family Medical History: Cancer, Hypertension Additional Family Medical History / Comment(s): neuropathy; Mother had Colon Cancer Father Family Medical History: No Reported History Additional Family Medical History / Comment(s): Father is bipolar <Lien Segal Chepe - Last Filed: 02/13/19 17:52> General Exam <Wen Waters - Last Filed: 02/14/19 00:05> - General Exam Comments Initial Comments: General: The patient is awake and alert, in no distress Eye: +3 mm pupils are equal, round and reactive to light, extra-ocular movements are intact. No nystagmus. There is normal conjunctiva bilaterally. No signs of icterus. Ears, nose, mouth and throat: There are moist mucous membranes and no oral lesions. Neck: The neck is supple, there is no tenderness or JVD. Cardiovascular: There is a regular rate and rhythm. No murmur, rub or gallop is appreciated. Respiratory: Lungs are clear to auscultation, respirations are non-labored, b reath sounds are equal. No wheezes, stridor, rales, or rhonchi. Gastrointestinal: Soft, non-distended, non-tender abdomen without masses or organomegaly noted. There is no rebound or guarding present. No cervical motion or adnexal tenderness. Frothy white/green discharge. genital wart noted. no vesicular lesions. Musculoskeletal: Normal ROM, no tenderness. Strength 5/5. Sensation intact. Radial pulses equal bilaterally 2+. Neurological: A&O x 3. CN II-XII intact grossly, There are no obvious motor or sensory deficits. Coordination appears grossly intact. Speech is normal. Skin: Skin is warm and dry and no rashes or lesions are noted. Psychiatric: Cooperative, appropriate mood & affect, normal judgment. (Wen Waters) Course Vital Signs 02/13/19 02/13/19 02/13/19 17:51 18:56 21:46 Temperature 97.7 F 97.4 F L Pulse Rate 77 66 Respiratory 20 18 22 Rate Blood Pressure 145/91 143/98 O2 Sat by Pulse 98 99 Oximetry Medical Decision Making <Wen Waters - Last Filed: 02/14/19 00:05> - Medical Decision Making 43-year-old female presenting today for chief complaint of pelvic pain, vaginal burning increasing discharge. Patient concern for STD. Patient given ceftriaxone and azithromycin emergency department. Flagyl outpatient 2g with 14 days of doxycycline for possible developing pID. patient afebrile, well appearing. Patient evaluated by my attending provider, who recommend d/c with PID tx and outpatient [employer] follow-up return parameters were discussed the patient was discharged appearing well (Wen Waters) - Lab Data Lab Results 02/13/19 02/13/19 02/13/19 Range/Units 17:55 17:55 21:00 Urine Color Yellow Urine Appearance Clear (Clear) Urine pH 5.5 (5.0-8.0) Ur Specific [place] 1.023 (1.001-1.035) Urine Protein 1+ H (Negative) Urine Glucose (UA) Negative (Negative) Urine Ketones Negative (Negative) Urine Blood Negative (Negative) Urine Nitrite Negative (Negative) Urine Bilirubin Negative (Negative) Urine Urobilinogen 2.0 (<2.0) mg/dL Ur Leukocyte Esterase Moderate H (Negative) Urine RBC 12 H (0-5) /hpf Urine WBC 32 H (0-5) /hpf Ur Squamous Epith Cells 1 (0-4) /hpf Calcium Oxalate Crystal Few H (None) /hpf Urine Mucus Many H (None) /hpf Urine HCG, Qual Not Detected (Not Detectd) Trichomonas Ag (Rapid) Positive H (Negative) Disposition <Lien Segal - Last Filed: 02/13/19 17:52> Is patient prescribed a controlled substance at d/c from ED?: No Time of Disposition: 21:12 <Wen Waters - Last Filed: 02/14/19 00:05> Clinical Impression: Vaginal discharge, Genital warts, Pelvic pain, UTI (urinary tract infection) Disposition: HOME SELF-CARE Condition: Good Instructions (If sedation given, give patient instructions): Pelvic Infl ammatory Disease (ED), Genital Warts (ED) Additional Instructions: Please use medication as discussed. Please follow-up with OBGYN in next 2 days. Please return to emergency room if the symptoms increase or worsen or for any other concerns--return for fevers, increasing pain.. Prescriptions: Doxycycline [Vibramycin] 100 mg PO BID 14 Days #28 capsule Referrals: Alberto Gonzalez MD [Primary Care Provider] - 1-2 days
[2019-02-13 18:15] LABS: Appearance,Urine Clear (Clear); Bilirubin,Urine Negative (Negative); Blood,Urine Negative (Negative); Calcium Oxalate Crystals,Urine Few /hpf; Color,Urine Yellow; Glucose,Urine (UA) Negative (Negative); Ketones,Urine Negative (Negative); Leukocyte Esterase,Urine Moderate (Negative); Mucus,Urine Many /hpf; Nitrite,Urine Negative (Negative); PH, Urine 5.5 (5.0-8.0); Protein,Urine 1+ (Negative); RBC,Urine 12 /hpf (0-5); Specific Gravity,Urine 1.023 (1.001-1.035); Squamous Epithelial Cell,Urine 1 /hpf (0-4); WBC,Urine 32 /hpf (0-5)
[2019-02-13] MEDS ORDERED: KETOROLAC 30 MG/ML 1 ML VIAL IM STA (20:47)
[2019-02-13] MEDS ORDERED: AZITHROMYCIN 500 MG TAB PO STA (21:06)
[2019-02-13] MEDS ORDERED: cefTRIAXone IN SWFI 1,000 MG/10 ML SYRINGE IVP STA (21:06)
[2019-02-13] MEDS ORDERED: ACET/COD 300 MG/30 MG STARTER PACK 6 TAB BTL PO STA (21:37)
[2019-02-13] MEDS ORDERED: cefTRIAXone 1,000 MG VIAL (IM USE) IM STA (21:38)
[2019-02-13 21:47] VITALS: BP 143/98; PULSE 66; RESP 22; TEMP 97.4
== END 2019-02-13 22:00 | disposition home or self-care (01) ==
LOC: EC 16:53
DX: N39.0 Urinary tract infection, site not specified (principal); A63.0 Anogenital (venereal) warts; M79.7 Fibromyalgia; K21.9 Gastro-esophageal reflux disease without esophagitis; I10 Essential (primary) hypertension; F41.9 Anxiety disorder, unspecified; F32.9 Major depressive disorder, single episode, unspecified; F17.200 Nicotine dependence, unspecified, uncomplicated; Z86.14 Personal history of Methicillin resistant Staphylococcus aureus infection; Z90.711 Acquired absence of uterus with remaining cervical stump; Z98.51 Tubal ligation status; Z79.899 Other long term (current) drug therapy; Z91.040 Latex allergy status; Z88.8 Allergy status to other drugs, medicaments and biological substances
CPT/HCPCS: 81001; 81025; 87808; 87491; 87591; 87070; 87086; 99284; 96372 ×2; J0696; J1885

== ENCOUNTER 2019-03-30 19:41 | Emergency (ER) | payer MEDICARE ==
[2019-03-30] MEDS ORDERED: SODIUM CHLORIDE 0.9% 1,000 ML IV STA (20:32)
[2019-03-30] MEDS ORDERED: SULFAMETHOX-TMP 800-160MG 1 EACH TAB PO STA (20:32)
[2019-03-30] MEDS ORDERED: MORPHINE SULFATE 4 MG/ML SYRINGE IV STA (21:00)
--- NOTE | 2019-03-30 21:18 | ED ---
General Adult HPI - General Chief complaint: Skin/Abscess/Foreign Body Stated complaint: facial swelling Time Seen by Provider: 03/30/19 20:14 Source: patient, RN notes reviewed, old records reviewed Mode of arrival: ambulatory Limitations: no limitations - History of Present Illness Initial comments: 43-year-old female patient past medical history of MRSA presents to ED for evaluation of left facial swelling. Reports has been ongoing for 2 days. Does report history of MRSA. Reports that she was seen in urgent care yesterday however they believe to be a bug bite initiated on any antibiotics. Denies systemic symptoms of infection. Denies a chance of being due to hysterectomy. Denies any other complaints. Systemic: Pt denies fatigue, fever/chills,. Pt denies weakness, night sweats, weight loss. Neuro: Pt denies headache, visual disturbances, syncope or pre-syncope. HEENT: Pt denies ocular discharge or irritation, otalgia, rhinorrhea, pharyngitis or notable lymphadenopathy. Cardiopulmonary: Pt denies chest pain, SOB, heart palpitations, dyspnea on exertion. Abdominal/GI: Pt denies abdominal pain, n/v/d. : Pt denies dysuria, burning w/ urination, frequency/urgency. Denies new onset urinary or bowel incontinence. MSK: Pt denies myalgia, loss of strength or function in extremities. Neuro: Pt denies new onset weakness, paresthesias. - Related Data Home Medications Medication Instructions Recorded Confirmed Furosemide [Lasix] 20 mg PO DAILY 05/30/18 12/16/18 Omeprazole 20 mg PO DAILY 05/30/18 12/16/18 Prazosin [Minipress] 1 mg PO BID 05/30/18 12/16/18 Spironolactone [Aldactone] 25 mg PO BID 05/30/18 12/16/18 DULoxetine HCL [Cymbalta] 60 mg PO BID 08/23/18 12/16/18 Gabapentin 800 mg PO TID 12/16/18 12/16/18 Ibuprofen [Motrin Ib] 800 mg PO Q6H PRN 12/16/18 12/16/18 busPIRone HCl [Buspar] 15 mg PO BID 12/16/18 12/16/18 Previous Rx's Medication Instructions Recorded Acetaminophen Tab [Tylenol] 1,000 mg PO Q6HR PRN tab 12/20/18 Cephalexin [Keflex] 500 mg PO Q8HR #21 cap 12/20/18 Nicotine 21Mg/24Hr Patch [Habitrol] 1 patch TRANSDERM DAILY #30 patch 12/20/18 Doxycycline [Vibramycin] 100 mg PO BID 14 Days #28 capsule 02/13/19 metroNIDAZOLE [Flagyl] 2,000 mg PO Q8HR 1 Days #4 tab 02/14/19 Cephalexin [Keflex] 500 mg PO Q6HR 10 Days #40 cap 03/30/19 Sulfamethox-Tmp 800-160Mg [Bactrim 1 tab PO Q12HR #20 tab 03/30/19 DS 800-160 mg] Allergies Allergy/AdvReac Type Severity Reaction Status Date / Time latex Allergy Itching Verified 03/30/19 19:52 lithium AdvReac Vomiting Verified 03/30/19 19:52 pregabalin [From Lyrica] AdvReac Vomiting Verified 03/30/19 19:52 topiramate [From Topamax] AdvReac Abdominal Verified 03/30/19 19:52 Pain Review of Systems ROS Statement: Those systems with pertinent positive or pertinent negative responses have been documented in the HPI. ROS Other: All systems not noted in ROS Statement are negative. Past Medical History Past Medical History: Asthma, COPD, Fibromyalgia, GERD/Reflux, Hypertension, Mus culoskeletal Disorder, Osteoarthritis (OA) Additional Past Medical History / Comment(s): Pt denies HTN/CHF but takes water pills. Neuropathy feet/legs and hands, bulging discs, chronic low back pain, DDD, pt needs bilateral total knees states, "it's bone on bone.", past gurvinder lulitis bilateral lower legs, unsteady gait, lindsey fever as a child. History of Any Multi-Drug Resistant Organisms: MRSA Date of last positivie culture/infection: 12/11/18 MDRO Source:: FOOT Past Surgical History: Hysterectomy, Orthopedic Surgery, Tubal Ligation Additional Past Surgical History / Comment(s): Right knee arthroscopic surg x3; LEEP procedure, partial hysterectomy 2009/ovaries intact, colonoscopy 2013, Past Anesthesia/Blood Transfusion Reactions: No Reported Reaction Past Psychological History: Anxiety, Bipolar, Depression Smoking Status: Current some day smoker Past Alcohol Use History: None Reported Past Drug Use History: Cocaine, Marijuana, Methamphetamine - Past Family History Mother Family Medical History: Cancer, Hypertension Additional Family Medical History / Comment(s): neuropathy; Mother had Colon Cancer Father Family Medical History: No Reported History Additional Family Medical History / Comment(s): Father is bipolar General Exam - General Exam Comments Initial Comments: Constitutional: NAD, AOX3, Pt has pleasant affect. HEENT: NC/AT, trachea midline, neck supple, no lymphadenopathy. Posterior pharyn x non erythematous, without exudates. External ears appear normal, without discharge. Mucous membranes moist. Eyes PERRLA, EOM intact. There is no scleral icterus. No pallor noted. Cardiopulmonary: RRR, no murmurs, rubs or gallops, no JVD noted. Lungs CTAB in anterior and posterior garcia. No peripheral edema. Abdominal exam: Abdomen soft and non-distended. Abdomen non-tender to palpation in all 4 quadrants. Bowel sounds active in LLQ. No hepatosplenomegaly. No ecchymosis Neuro: CN II-XII grossly intact. No nuchal rigidity. No raccon eyes, no del castillo sign, no hemotympanum. No cervical spinal tenderness. MSK: No posterior calf tenderness bilaterally, homans sign negative bilaterally. Posterior tibialis and radial pulse +2 bilaterally. Sensation intact in upper and lower extremities. Full active ROM in upper and lower extremities, 5/5 stregnth. Derm: 3 x 3 cm area of erythema, tenderness, left cheek region. No drainage. Nonfluctuant. Limitations: no limitations Course Vital Signs 03/30/19 19:50 Temperature 98.5 F Pulse Rate 89 Respiratory 16 Rate Blood Pressure 148/93 O2 Sat by Pulse 97 Oximetry Medical Decision Making - Medical Decision Making 43-year-old female patient past medical history of MRSA presents to ED for evaluation of left facial swelling. Reports has been ongoing for 2 days. Does report history of MRSA. Reports that she was seen in urgent care yesterday however they believe to be a bug bite initiated on any antibiotics. Denies systemic symptoms of infection. Denies a chance of being due to hysterectomy. Denies any other complaints. Patient will signs are stable, afebrile. Physical exam did display some swelling and erythema approximately 3 x 3 cm area on the left cheek region. Abdomen is soft, nontender. Laboratory investigations were obtained displayed mild leukocytosis of 11.8. Otherwise noncompressive. UA is fully 91 white cells, 11 red blood cells, 7 squamous cells, no leukocyte esterase or nitrite. Urine will be cultured. A CT with contrast displayed subcutaneous edema anterior to the left maxilla and left mandible consistent with cellulitis. No drainable fluid collection. Cervical lymphadenopathy. Patient lipase was elevated. This was ordered incidentally through the order set as patient is not having any current abdominal pain but does report that she has had some chronic abdominal pain in the past. US was obtained this did not display any gallstones or dilated ducts. No focal liver defect. No evidence of pancreatic mass. No gross change compared to prior. Patient will be discharged with Keflex and Bactrim for facial cellulitis strict return precautions and close follow with primary care provider. Ptadvised to get a CAT scan of the abdomen and pelvis with contrast in approximately one week for evaluation of etiology of pancreatitis. She denies any etoh usage. Case discussed in depth with Dr. Coyne. - Lab Data Result diagrams: 03/30/19 21:42 03/30/19 21:42 Lab Results 03/30/19 03/30/19 03/30/19 Range/Units 21:42 21:42 21:42 WBC (3.8-10.6) k/uL RBC (3.80-5.40) m/uL Hgb (11.4-16.0) gm/dL Hct (34.0-46.0) % MCV (80.0-100.0) fL MCH (25.0-35.0) pg MCHC (31.0-37.0) g/dL RDW (11.5-15.5) % Plt Count (150-450) k/uL Neutrophils % % Lymphocytes % % Monocytes % % Eosinophils % % Basophils % % Neutrophils # (1.3-7.7) k/uL Lymphocytes # (1.0-4.8) k/uL Monocytes # (0-1.0) k/uL Eosinophils # (0-0.7) k/uL Basophils # (0-0.2) k/uL PT 9.5 (9.0-12.0) sec INR 0.9 (<1.2) APTT 22.0 (22.0-30.0) sec Sodium (137-145) mmol/L Potassium (3.5-5.1) mmol/L Chloride (98-107) mmol/L Carbon Dioxide (22-30) mmol/L Anion Gap mmol/L BUN (7-17) mg/dL Creatinine (0.52-1.04) mg/dL Est GFR (CKD-EPI)AfAm (>60 ml/min/1.73 sqM) Est GFR (CKD-EPI)NonAf (>60 ml/min/1.73 sqM) Glucose (74-99) mg/dL Plasma Lactic Acid Alessio 1.9 (0.7-2.0) mmol/L Calcium (8.4-10.2) mg/dL Total Bilirubin (0.2-1.3) mg/dL AST (14-36) U/L ALT (4-34) U/L Alkaline Phosphatase (38-126) U/L Total Protein (6.3-8.2) g/dL Albumin (3.5-5.0) g/dL Lipase (23-300) U/L Urine Color Urine Appearance (Clear) Urine pH (5.0-8.0) Ur Specific [place] (1.001-1.035) Urine Protein (Negative) Urine Glucose (UA) (Negative) Urine Ketones (Negative) Urine Blood (Negative) Urine Nitrite (Negative) Urine Bilirubin (Negative) Urine Urobilinogen (<2.0) mg/dL Ur Leukocyte Esterase (Negative) Urine RBC (0-5) /hpf Urine WBC (0-5) /hpf Ur Squamous Epith Cells (0-4) /hpf Hyaline Casts (0-2) /lpf Urine Mucus (None) /hpf Urine HCG, Qual Not Detected (Not Detectd) 03/30/19 03/30/19 03/30/19 Range/Units 21:42 21:42 21:42 WBC 11.8 H (3.8-10.6) k/uL RBC 4.81 (3.80-5.40) m/uL Hgb 14.9 (11.4-16.0) gm/dL Hct 46.1 H (34.0-46.0) % MCV 95.8 (80.0-100.0) fL MCH 31.1 (25.0-35.0) pg MCHC 32.5 (31.0-37.0) g/dL RDW 14.0 (11.5-15.5) % Plt Count 205 (150-450) k/uL Neutrophils % 73 % Lymphocytes % 16 % Monocytes % 6 % Eosinophils % 3 % Basophils % 1 % Neutrophils # 8.5 H (1.3-7.7) k/uL Lymphocytes # 1.9 (1.0-4.8) k/uL Monocytes # 0.7 (0-1.0) k/uL Eosinophils # 0.3 (0-0.7) k/uL Basophils # 0.1 (0-0.2) k/uL PT (9.0-12.0) sec INR (<1.2) APTT (22.0-30.0) sec Sodium 136 L (137-145) mmol/L Potassium 4.0 (3.5-5.1) mmol/L Chloride 103 (98-107) mmol/L Carbon Dioxide 24 (22-30) mmol/L Anion Gap 9 mmol/L BUN 11 (7-17) mg/dL Creatinine 0.70 (0.52-1.04) mg/dL Est GFR (CKD-EPI)AfAm >90 (>60 ml/min/1.73 sqM) Est GFR (CKD-EPI)NonAf >90 (>60 ml/min/1.73 sqM) Glucose 126 H (74-99) mg/dL Plasma Lactic Acid Alessio (0.7-2.0) mmol/L Calcium 9.0 (8.4-10.2) mg/dL Total Bilirubin 0.4 (0.2-1.3) mg/dL AST 22 (14-36) U/L ALT 19 (4-34) U/L Alkaline Phosphatase 72 (38-126) U/L Total Protein 6.6 (6.3-8.2) g/dL Albumin 3.8 (3.5-5.0) g/dL Lipase 1043 H (23-300) U/L Urine Color Yellow Urine Appearance Cloudy H (Clear) Urine pH 5.5 (5.0-8.0) Ur Specific [place] 1.033 (1.001-1.035) Urine Protein 1+ H (Negative) Urine Glucose (UA) Negative (Negative) Urine Ketones Trace H (Negative) Urine Blood Negative (Negative) Urine Nitrite Negative (Negative) Urine Bilirubin Negative (Negative) Urine Urobilinogen 2.0 (<2.0) mg/dL Ur Leukocyte Esterase Negative (Negative) Urine RBC 11 H (0-5) /hpf Urine WBC 91 H (0-5) /hpf Ur Squamous Epith Cells 7 H (0-4) /hpf Hyaline Casts 3 H (0-2) /lpf Urine Mucus Many H (None) /hpf Urine HCG, Qual (Not Detectd) Disposition Clinical Impression: Cellulitis, Elevated lipase Disposition: HOME SELF-CARE Condition: Stable Instructions (If sedation given, give patient instructions): Cellulitis (ED), Pancreatitis (ED) Additional Instructions: Take antibiotics as directed. Return immediately to the ER if redness pain on face worsens in any way. Follow up with primary care provider tomorrow. Have lipase rechecked by primary care provider. Advised to have a CT of abdomen and pelvis with contrast approximately one week. Return to ER if condition worsens in any way, this includes abdominal pain, nausea and vomiting. Prescriptions: Sulfamethox-Tmp 800-160Mg [Bactrim DS 800-160 mg] 1 tab PO Q12HR #20 tab Cephalexin [Keflex] 500 mg PO Q6HR 10 Days #40 cap Is patient prescribed a controlled substance at d/c from ED?: No Referrals: Alberto Gonzalez MD [Primary Care Provider] - 1-2 days
[2019-03-30 21:55] LABS: Basophils # (A) 0.1 k/uL (0-0.2); Basophils % (A) 1 %; Eosinophils # (A) 0.3 k/uL (0-0.7); Eosinophils % (A) 3 %; HCT 46.1 % (34.0-46.0); HGB 14.9 gm/dL (11.4-16.0); Lymphocytes # (A) 1.9 k/uL (1.0-4.8); Lymphocytes % (A) 16 %; MCH 31.1 pg (25.0-35.0); MCHC 32.5 g/dL (31.0-37.0); MCV 95.8 fL (80.0-100.0); Mean Platelet Volume 7.9; Monocytes # (A) 0.7 k/uL (0-1.0); Monocytes % (A) 6 %; Neutrophils # (A) 8.5 k/uL (1.3-7.7); Neutrophils % (A) 73 %; Platelet Count 205 k/uL (150-450); RBC 4.81 m/uL (3.80-5.40); WBC 11.8 k/uL (3.8-10.6)
[2019-03-30 22:05] LABS: ALT 19 U/L (4-34); AST 22 U/L (14-36); African American GFR (CKD) >90 (>60 ml/min/1.73 sqM); Albumin 3.8 g/dL (3.5-5.0); Alkaline Phosphatase 72 U/L (38-126); Anion Gap 9 mmol/L; Blood Urea Nitrogen 11 mg/dL (7-17); Carbon Dioxide 24 mmol/L (22-30); Chloride 103 mmol/L (98-107); Glucose 126 mg/dL (74-99); Non-African American GFR(CKD) >90 (>60 ml/min/1.73 sqM); Sodium 136 mmol/L (137-145); Total Bilirubin 0.4 mg/dL (0.2-1.3); Total Protein 6.6 g/dL (6.3-8.2)
[2019-03-30 22:06] LABS: Appearance,Urine Cloudy (Clear); Bilirubin,Urine Negative (Negative); Blood,Urine Negative (Negative); Color,Urine Yellow; Glucose,Urine (UA) Negative (Negative); Hyaline Casts,Urine 3 /lpf (0-2); Ketones,Urine Trace (Negative); Leukocyte Esterase,Urine Negative (Negative); Mucus,Urine Many /hpf; Nitrite,Urine Negative (Negative); PH, Urine 5.5 (5.0-8.0); Protein,Urine 1+ (Negative); RBC,Urine 11 /hpf (0-5); Specific Gravity,Urine 1.033 (1.001-1.035); Squamous Epithelial Cell,Urine 7 /hpf (0-4); WBC,Urine 91 /hpf (0-5)
--- NOTE | 2019-03-30 22:33 | CT ---
EXAMINATION TYPE: CT facial bones w con DATE OF EXAM: 03/30/2019 COMPARISON: HISTORY: Left cheek facial abscess CT DLP: 812.5 mGycm Automated exposure control for dose reduction was used. CONTRAST: Performed with IV Contrast, patient injected with 100 mL of Isovue 300. None multiple axial sections were obtained from the bottom of the mandible to the top of the frontal sinuses with intravenous contrast. Submandibular salivary glands are fairly symmetric. There are numerous bilateral enlarged anterior tr iangle cervical lymph nodes that measure up to 1.5 cm. The parotid glands are fairly symmetric. Mandibular ring appears intact. Temporomandibular joints are intact. Zygomatic arches appear normal. There is nasal bone fracture with deviation to the right side. There is subcutaneous edema anterior t o the left maxilla and left mandible. I see no drainable fluid collection. There is normal aeration of the paranasal sinuses. I see no bony destructive process. Orbital margins are intact. There is no evidence of retro-orbital mass. There is no evidence of a blowout fracture. There is small cysts 8 mm mucous retention cyst at the floor of the left maxillary sinus. There is no rmal aeration of the mastoid sinuses. Temporomandibular joints appear normal. There is normal aeratio n of the middle ear. IMPRESSION: Subcutaneous edema anterior to the left maxilla and left mandible consistent with cellulitis. No drai nable fluid collection. Bilateral cervical lymphadenopathy. Mild symmetric enlargement of the tonsils . Prevertebral soft tissues within normal limits. Nasal bone fracture of uncertain age.
[2019-03-30 23:00] LABS: INR 0.9 (<1.2); Prothrombin Time 9.5 sec (9.0-12.0)
--- NOTE | 2019-03-30 23:32 | US ---
EXAMINATION TYPE: US gallbladder DATE OF EXAM: 03/30/2019 COMPARISON: CT, US Ultrasound 10/23/2017 CLINICAL HISTORY: and pancreas . Pancreatitis. EXAM MEASUREMENTS: Liver Length: 16.7 cm Gallbladder Wall: 0.24 cm CBD: 0.47 cm Right Kidney: 10.1 x 5.8 x 5.4 cm Limited due to large body habitus. Pancreas: Appears hyperechoic. No abnormalities seen at this time. Partially obscured. Liver: Difficult to penetrate. Gallbladder: Appears anechoic. Evidence for sonographic Juan's sign: No CBD: Appears wnl. Right Kidney: No hydronephrosis or masses seen IMPRESSION: No gallstones or dilated ducts. No focal liver defect. No evidence of pancreatic mass. No adverse change compared to old exam.
[2019-03-30] MEDS ORDERED: SULFAMETH-TMP DS STARTER PACK 2 TAB BTL PO STA (23:47)
[2019-03-30] MEDS ORDERED: CEPHALEXIN 500MG STARTER PACK 4 CAP BTL PO STA (23:47)
[2019-03-31 00:19] VITALS: RESP 18
[2019-03-31 00:21] VITALS: BP 119/61; PULSE 79; TEMP 97.8
== END 2019-03-31 00:21 | disposition home or self-care (01) ==
LOC: EC 19:41
DX: L03.211 Cellulitis of face (principal); R74.8 Abnormal levels of other serum enzymes; D72.829 Elevated white blood cell count, unspecified; R82.81 Pyuria; R31.9 Hematuria, unspecified; R82.998 Other abnormal findings in urine; R59.0 Localized enlarged lymph nodes; G89.29 Other chronic pain; R10.9 Unspecified abdominal pain; M79.7 Fibromyalgia; K21.9 Gastro-esophageal reflux disease without esophagitis; I10 Essential (primary) hypertension; M19.90 Unspecified osteoarthritis, unspecified site; F31.9 Bipolar disorder, unspecified; F41.9 Anxiety disorder, unspecified; F17.200 Nicotine dependence, unspecified, uncomplicated; Z88.8 Allergy status to other drugs, medicaments and biological substances; Z91.040 Latex allergy status; Z79.1 Long term (current) use of non-steroidal anti-inflammatories (NSAID); Z79.899 Other long term (current) drug therapy; Z87.2 Personal history of diseases of the skin and subcutaneous tissue; Z86.14 Personal history of Methicillin resistant Staphylococcus aureus infection; Z90.710 Acquired absence of both cervix and uterus
CPT/HCPCS: 36415; 80053; 83605; 83690; 85025; 85610; 85730; 81001; 81025; 87040; 87086; 76705; 70487; 99284; 96365; 96375; 96361 ×2; J2270; J0696; Q9967

== ENCOUNTER 2019-04-02 14:46 | Inpatient (IN) | payer MEDICARE ==
[2019-04-02] MEDS ORDERED: PIPERACILLIN-TAZOBACTAM 3.375 GM in SODIUM CHLORIDE 0.9% 100 ML IVPB STA (15:12)
[2019-04-02] MEDS ORDERED: KETOROLAC 30 MG/ML 1 ML VIAL IVP STA (15:19)
[2019-04-02] MEDS ORDERED: LIDOCAINE 1% INJ 10MG/ML (20 ML MDV) SQ ONE (15:19)
--- NOTE | 2019-04-02 15:21 | ED ---
General Adult HPI <Avtar Duron - Last Filed: 04/02/19 16:02> - General Source: patient, RN notes reviewed Mode of arrival: ambulatory Limitations: no limitations <Leopoldo Jean - Last Filed: 04/02/19 16:22> - General Chief complaint: Wound/Laceration Stated complaint: wound on face Time Seen by Provider: 04/02/19 14:54 - History of Present Illness Initial comments: 43-year-old female with a past medical history of methamphetamine use, denies IV drug abuse presents to the emergency department for a chief complaint of abscess on the left side of the face. Patient states she has had redness in this area for 5 days. States that she has been on antibiotics including Keflex and Bactrim for the past 3-4 days. Patient states that the area on the face is worsening. States that it looks like it is going to drain pus. Patient denies fevers but does states she has an overall feeling of fatigue. Patient did have a CAT scan in the emergency department on 03/30/2019 which showed subcutaneous edema over the left maxilla and left mandible consistent with cellulitis. No drainable fluid collection at that time. Bilateral cervical lymphadenopathy noted. Patient has no other complaints at this time including shortness of breath, chest pain, abdominal pain, nausea or vomiting, headache, or visual changes. (Leopoldo Jean) - Related Data Home Medications Medication Instructions Recorded Confirmed Furosemide [Lasix] 20 mg PO DAILY 05/30/18 12/16/18 Omeprazole 20 mg PO DAILY 05/30/18 12/16/18 Prazosin [Minipress] 1 mg PO BID 05/30/18 12/16/18 Spironolactone [Aldactone] 25 mg PO BID 05/30/18 12/16/18 DULoxetine HCL [Cymbalta] 60 mg PO BID 08/23/18 12/16/18 Gabapentin 800 mg PO TID 12/16/18 12/16/18 Ibuprofen [Motrin Ib] 800 mg PO Q6H PRN 12/16/18 12/16/18 busPIRone HCl [Buspar] 15 mg PO BID 12/16/18 12/16/18 Previous Rx's Medication Instructions Recorded Acetaminophen Tab [Tylenol] 1,000 mg PO Q6HR PRN tab 12/20/18 Cephalexin [Keflex] 500 mg PO Q8HR #21 cap 12/20/18 Nicotine 21Mg/24Hr Patch [Habitrol] 1 patch TRANSDERM DAILY #30 patch 12/20/18 Doxycycline [Vibramycin] 100 mg PO BID 14 Days #28 capsule 02/13/19 metroNIDAZOLE [Flagyl] 2,000 mg PO Q8HR 1 Days #4 tab 02/14/19 Cephalexin [Keflex] 500 mg PO Q6HR 10 Days #40 cap 03/30/19 Sulfamethox-Tmp 800-160Mg [Bactrim 1 tab PO Q12HR #20 tab 03/30/19 DS 800-160 mg] Allergies Allergy/AdvReac Type Severity Reaction Status Date / Time latex Allergy Itching Verified 04/02/19 14:50 lithium AdvReac Vomiting Verified 04/02/19 14:50 pregabalin [From Lyrica] AdvReac Vomiting Verified 04/02/19 14:50 topiramate [From Topamax] AdvReac Abdominal Verified 04/02/19 14:50 Pain Review of Systems ROS Other: All systems not noted in ROS Statement are negative. <Avtar Duron - Last Filed: 04/02/19 16:02> ROS Other: All systems not noted in ROS Statement are negative. <Leopoldo Jean - Last Filed: 04/02/19 16:22> ROS Statement: Those systems with pertinent positive or pertinent negative responses have been documented in the HPI. Past Medical History Past Medical History: Asthma, COPD, Fibromyalgia, GERD/Reflux, Hypertension, Musculoskeletal Disorder, Osteoarthritis (OA) Additional Past Medical History / Comment(s): Pt denies HTN/CHF but takes water pills. Neuropathy feet/legs and hands, bulging discs, chronic low back pain, DDD, pt needs bilateral total knees states, "it's bone on bone.", past cellulitis bilateral lower legs, unsteady gait, lindsey fever as a child. History of Any Multi-Drug Resistant Organisms: MRSA Date of last positivie culture/infection: 12/11/18 MDRO Source:: FOOT Past Surgical History: Hysterectomy, Orthopedic Surgery, Tubal Ligation Additional Past Surgical History / Comment(s): Right knee arthroscopic surg x3; LEEP procedure, partial hysterectomy 2009/ovaries intact, colonoscopy 2013, Past Anesthesia/Blood Transfusion Reactions: No Reported Reaction Past Psychological History: Anxiety, Bipolar, Depression Smoking Status: Current every day smoker Past Alcohol Use History: None Reported Past Drug Use History: Cocaine, Marijuana, Methamphetamine - Past Family History Mother Family Medical History: Cancer, Hypertension Additional Family Medical History / Comment(s): neuropathy; Mother had Colon Ca ncer Father Family Medical History: No Reported History Additional Family Medical History / Comment(s): Father is bipolar <Leopoldo Jean - Last Filed: 04/02/19 16:22> General Exam Limitations: no limitations General appearance: alert, in no apparent distress Head exam: Present: atraumatic, normocephalic, normal inspection Eye exam: Present: normal appearance, PERRL, EOMI. Absent: scleral icterus, conjunctival injection, periorbital swelling ENT exam: Present: normal exam, mucous membranes moist, other (4 cm x 4 cm abscess in the left buccal area, no spreading erythema, induration noted to the inside of the cheek) Neck exam: Present: normal inspection, full ROM. Absent: tenderness, meningismus, lymphadenopathy <Leopoldo Jean - Last Filed: 04/02/19 16:22> Course <Leopoldo Jean - Last Filed: 04/02/19 16:22> Vital Signs 04/02/19 14:51 Temperature 97.8 F Pulse Rate 85 Respiratory 18 Rate Blood Pressure 124/83 O2 Sat by Pulse 98 Oximetry - Reevaluation(s) Reevaluation #1: 04/02/19 15:25 Patient was examined by Dr Duron (Leopoldo Jean) Procedures - Incision & Drainage Consent Obtained: verbal consent Indication: Abscess Site: face Size (cm): 4 I&D Cleaning Method: Chloroprep Sterile Field Used?: Yes Patient Tolerated Procedure: well, no complications <Leopoldo Jean - Last Filed: 04/02/19 16:22> Medical Decision Making - Lab Data Result diagrams: 04/02/19 15:30 04/02/19 15:30 <Avtar Duron - Last Filed: 04/02/19 16:02> - Lab Data Result diagrams: 04/02/19 15:30 04/02/19 15:30 <Leopoldo Jean - Last Filed: 04/02/19 16:22> - Medical Decision Making Patient reevaluated by myself, Dr. Duron. Patient resting in bed. Patient does have left cheek abscess and has been on antibiotics for this. Case discussed with Dr. Gonzalez, who will admit his patient. IV antibiotics will be started. (Avtar Duron) Patient has a 4 cm x 4 cm abscess of the left nuchal area causing induration to the anterior aspect of the mouth. CBC is unremarkable. CMP is unremarkable. Lactic acid of 2.2 however patient does not meet sepsis criteria, may be secondary to dehydration. IV antibiotics were started. I did intend incision and drainage with an 18-gauge needle and syringe however I did not obtain purulent material. Dr. Duron evaluated patient and spoke with Dr. Gonzalez who accepts admission. Patient does have a history of methamphetamine use, no IV drug abuse. I did try Toradol with patient initially however this did not help with the pain. Therefore she was ordered IV pain medications. She was made nothing by mouth after midnight. Patient failed outpatient treatment with 3-4 days of Keflex and Bactrim (Leopoldo Jean) - Lab Data Lab Results 04/02/19 04/02/19 04/02/19 Range/Units 15:30 15:30 15:30 WBC 7.3 (3.8-10.6) k/uL RBC 4.49 (3.80-5.40) m/uL Hgb 13.9 (11.4-16.0) gm/dL Hct 43.0 (34.0-46.0) % MCV 95.8 (80.0-100.0) fL MCH 31.0 (25.0-35.0) pg MCHC 32.4 (31.0-37.0) g/dL RDW 13.9 (11.5-15.5) % Plt Count 170 (150-450) k/uL Neutrophils % 71 % Lymphocytes % 18 % Monocytes % 5 % Eosinophils % 4 % Basophils % 2 % Neutrophils # 5.2 (1.3-7.7) k/uL Lymphocytes # 1.3 (1.0-4.8) k/uL Monocytes # 0.3 (0-1.0) k/uL Eosinophils # 0.3 (0-0.7) k/uL Basophils # 0.1 (0-0.2) k/uL Sodium 136 L (137-145) mmol/L Potassium 3.7 (3.5-5.1) mmol/L Chloride 104 (98-107) mmol/L Carbon Dioxide 25 (22-30) mmol/L Anion Gap 7 mmol/L BUN 12 (7-17) mg/dL Creatinine 0.71 (0.52-1.04) mg/dL Est GFR (CKD-EPI)AfAm >90 (>60 ml/min/1.73 sqM) Est GFR (CKD-EPI)NonAf >90 (>60 ml/min/1.73 sqM) Glucose 148 H (74-99) mg/dL Plasma Lactic Acid Alessio 2.2 H* (0.7-2.0) mmol/L Calcium 8.5 (8.4-10.2) mg/dL Total Bilirubin 0.3 (0.2-1.3) mg/dL AST 18 (14-36) U/L ALT 16 (4-34) U/L Alkaline Phosphatase 64 (38-126) U/L Total Protein 6.2 L (6.3-8.2) g/dL Albumin 3.3 L (3.5-5.0) g/dL Disposition <Avtar Duron - Last Filed: 04/02/19 16:02> Is patient prescribed a controlled substance at d/c from ED?: No Time of Disposition: 16:22 <Leopoldo Jean - Last Filed: 04/02/19 16:22> Clinical Impression: Facial abscess, Failure of outpatient treatment Disposition: ADMITTED IP TO THIS HOSP Condition: Fair Referrals: Alberto Gonzalez MD [Primary Care Provider] - 1-2 days
[2019-04-02 15:40] LABS: Basophils # (A) 0.1 k/uL (0-0.2); Basophils % (A) 2 %; Eosinophils # (A) 0.3 k/uL (0-0.7); Eosinophils % (A) 4 %; HGB 13.9 gm/dL (11.4-16.0); Lymphocytes # (A) 1.3 k/uL (1.0-4.8); Lymphocytes % (A) 18 %; MCHC 32.4 g/dL (31.0-37.0); MCV 95.8 fL (80.0-100.0); Mean Platelet Volume 7.6; Monocytes # (A) 0.3 k/uL (0-1.0); Monocytes % (A) 5 %; Neutrophils # (A) 5.2 k/uL (1.3-7.7); Neutrophils % (A) 71 %; Platelet Count 170 k/uL (150-450); RBC 4.49 m/uL (3.80-5.40); RDW 13.9 % (11.5-15.5); WBC 7.3 k/uL (3.8-10.6)
[2019-04-02] MEDS: SODIUM CHLORIDE 0.9% 500 ML 500 ML IV SCH (15:47)
[2019-04-02 15:51] LABS: ALT 16 U/L (4-34); AST 18 U/L (14-36); African American GFR (CKD) >90 (>60 ml/min/1.73 sqM); Albumin 3.3 g/dL (3.5-5.0); Alkaline Phosphatase 64 U/L (38-126); Anion Gap 7 mmol/L; Blood Urea Nitrogen 12 mg/dL (7-17); Calcium 8.5 mg/dL (8.4-10.2); Carbon Dioxide 25 mmol/L (22-30); Chloride 104 mmol/L (98-107); Glucose 148 mg/dL (74-99); Non-African American GFR(CKD) >90 (>60 ml/min/1.73 sqM); Potassium 3.7 mmol/L (3.5-5.1); Sodium 136 mmol/L (137-145); Total Bilirubin 0.3 mg/dL (0.2-1.3); Total Protein 6.2 g/dL (6.3-8.2)
[2019-04-02] MEDS ORDERED: NALOXONE 0.4 MG/ML 1 ML VIAL IV PRN (16:15)
[2019-04-02] MEDS ORDERED: ONDANSETRON 4 MG/2 ML VIAL IVP PRN (16:15)
[2019-04-02] MEDS: HYDROmorphone 0.5 MG/0.5 ML SYRINGE IVP PRN ×2 (17:08→21:20)
[2019-04-02] MEDS: SODIUM CHLORIDE 0.9% 1,000 ML IV SCH (18:18)
[2019-04-02] MEDS: traMADol 50 MG TAB PO SCH (22:58)
[2019-04-02] MEDS: GABAPENTIN 400 MG CAP PO SCH (22:58)
[2019-04-02] MEDS: busPIRone HCl 10 MG TAB PO SCH (22:58)
[2019-04-02] MEDS: DULoxetine HCL 60 MG CAPSULE.DR PO SCH (22:59)
[2019-04-02] MEDS: PRAZOSIN 1 MG CAP PO SCH (22:59)
[2019-04-03] MEDS: PIPERACILLIN-TAZOBACTAM 3.375 GM in SODIUM CHLORIDE 0.9% 100 ML IVPB SCH ×4 (01:00→23:38)
[2019-04-03] MEDS: HYDROmorphone 0.5 MG/0.5 ML SYRINGE IVP PRN ×7 (01:08→23:38)
[2019-04-03] MEDS: SODIUM CHLORIDE 0.9% 1,000 ML IV SCH ×4 (01:08→20:04)
[2019-04-03] MEDS: traMADol 50 MG TAB PO SCH ×2 (08:32→20:00)
[2019-04-03] MEDS: DULoxetine HCL 60 MG CAPSULE.DR PO SCH ×2 (08:32→20:00)
[2019-04-03] MEDS: busPIRone HCl 10 MG TAB PO SCH ×2 (08:32→20:01)
[2019-04-03] MEDS: PRAZOSIN 1 MG CAP PO SCH ×2 (08:33→20:01)
[2019-04-03] MEDS: GABAPENTIN 400 MG CAP PO SCH ×3 (08:33→20:00)
[2019-04-03] MEDS: NICOTINE 21MG/24HR PATCH TRANSDERM SCH (09:07)
[2019-04-03 12:26] LABS: Hemoglobin A1C 5.1 % (4.0-6.0)
--- NOTE | 2019-04-03 12:59 | HP ---
HISTORY AND PHYSICAL A 43-year-old white female who was admitted to the hospital for left facial abscess versus large mass, started on IV Zosyn. She thought it was going to drain pus and had a CT scan in the emergency room, which shows subcutaneous edema over the left maxilla and left mandible consistent with cellulitis. Now it is more of an abscess. She possibly get surgical consultation for possible drainage. Remains on IV Zosyn, Lasix 20 mg a day, omeprazole 20 mg a day, Minipress 1 mg b.i.d., Aldactone 25 b.i.d., Cymbalta 60 b.i.d., gabapentin 800 t.i.d., BuSpar 15 b.i.d. ALLERGIES: LITHIUM, LATEX, LYRICA, TOPAMAX. . 14 POINT REVIEW OF SYSTEMS: Negative except for as mentioned in HPI. PAST MEDICAL HISTORY: Asthma, COPD, fibromyalgia, GERD, hypertension, musculoskeletal disorder, osteoarthritis, neuropathy, chronic back pain, bone on bone, history of MRSA, history of partial hysterectomy, right knee arthroscopy, LEEP procedure. Current everyday smoker. History of anxiety and bipolar depression. FAMILY HISTORY: Mother with cancer and hypertension, neuropathy. Father bipolar. VITAL SIGNS: Reviewed. Afebrile. CARDIOVASCULAR: S1, S2. LUNGS: Scattered rhonchi and wheeze. HEMATOLOGY: Negative Homans. BMI is greater than 40. PSYCH: Fair mood and affect. NEUROLOGIC: Alert and orient x3. INTEGUMENT: Shows large left facial swelling, golf ball-sized into the mid cheek area for which surgical excision may need to be needed. Infectious Disease will also be consulted. Continue with IV Zosyn. Please see further orders. Home medications will be continued. MMODL / IJN: [id number] /
--- NOTE | 2019-04-03 15:41 | CT ---
EXAMINATION TYPE: CT facial bones wo con DATE OF EXAM: 04/03/2019 COMPARISON: March 30, 2019 HISTORY: left sided facial abscess CT DLP: 603 mGycm Automated exposure control for dose reduction was used. TECHNIQUE: CT scan of the sinuses is performed without contrast, axial images are obtained, coronal r eformatted images are also reviewed. FINDINGS: Previously noted site of cellulitis with subcutaneous edema anterior to the left maxilla and left man dible now demonstrates more focal appearance consistent with phlegmon. Area of phlegmon measures 1.7 x 1.4 cm. A drainable abscess is not identified with certainty at this time. The paranasal sinuses including the frontal, ethmoid, sphenoid, and maxillary sinuses bilaterally a re well-aerated without abnormal opacification. The ostiomeatal complex is patent bilaterally on the coronal images. Visualized portion of mastoid air cells show no abnormal opacification. The globes are intact bilate rally. IMPRESSION: Left facial phlegmon without evidence for drainable abscess. Subcentimeter lymph nodes wi thin the neck may be reactive in nature.
--- NOTE | 2019-04-03 15:42 | P.GSCN ---
History of Present Illness Consult date: 04/03/19 Reason for Consult: left facial abscess Requesting physician: Alberto Gonzalez History of present illness: CHIEF COMPLAINT: left facial abscess HISTORY OF PRESENT ILLNESS: 43-year-old female who originally presented to the emergency room on 03/30/2019 to left facial swelling and wound. Patient underwent CT at that time revealing subcutaneous at edema anterior to the left maxilla and left mandible consistent with cellulitis. No drainable fluid collection. Patient was discharged home on oral antibiotics. She presented back to the ER on 04/02/2019 due to increased swelling and pain to her face. PAST MEDICAL HISTORY: See list. PAST SURGICAL HISTORY: See list. SOCIAL HISTORY: History of meth abuse. REVIEW OF SYSTEMS: CONSTITUTIONAL: Denies fever or chills. HEENT: Denies blurred vision, vision changes, or eye pain. Denies hemoptysis CARDIOVASCULAR: Denies chest pain or pressure. RESPIRATORY: No shortness of breath. GASTROINTESTINAL: Refer to HPI for pertinent findings HEMATOLOGIC: Denies bleeding disorders. GENITOURINARY: Denies any blood in urine. SKIN: Denies pruitis. Denies rash. Reports left facial swelling, tenderness, and redness. PHYSICAL EXAM: VITAL SIGNS: Reviewed. GENERAL: Well-developed in no acute distress. HEENT: No sclera icterus. Extraocular movements grossly intact. Moist buccal mucosa. Head is atraumatic, normocephalic. ABDOMEN: Soft. Nondistended. Nontender. NEUROLOGIC: Alert and oriented. Cranial nerves II through XII grossly intact. SKIN: Left cheek abscess. Wound is open with purulent drainage. Surrounding induration and erythema. LABORATORY DATA: WBC 7.3. Hemoglobin 13.9. Platelet count 170. IMAGING: CT face 03/30/2019: Subcutaneous at edema anterior to the left maxilla and left mandible consistent with cellulitis. No drainable fluid collection. ASSESSMENT: 1. Left facial abscess PLAN: Continue IV antibiotics Wound is currently draining during examination. No immediate need for surgical I&D Face CT ordered per internal medicine. Await results Further recommendations pending Nurse practitioner note has been reviewed by physician. Signing provider agrees with the documented findings, assessment, and plan of care. Past Medical History Past Medical History: Asthma, COPD, Fibromyalgia, GERD/Reflux, Hypertension, Musculoskeletal Disorder, Osteoarthritis (OA) Additional Past Medical History / Comment(s): Pt denies HTN/CHF but takes water pills. Neuropathy feet/legs and hands, bulging discs, chronic low back pain, DDD, pt needs bilateral total knees states, "it's bone on bone.", past cellulitis bilateral lower legs, unsteady gait, lindsey fever as a child. History of Any Multi-Drug Resistant Organisms: MRSA Year Discovered:: 12/11/18 MDRO Source:: FOOT Past Surgical History: Hysterectomy, Orthopedic Surgery, Tubal Ligation Additional Past Surgical History / Comment(s): Right knee arthroscopic surg x3; LEEP procedure, partial hysterectomy 2009/ovaries intact, colonoscopy 2013, Past Anesthesia/Blood Transfusion Reactions: No Reported Reaction Past Psychological History: Anxiety, Bipolar, Depression Additional Psychological History / Comment(s): [facility] patient. Past history of substance abuse. single. Did not relate to having children. Does have a pet dog. No travel. The experience. Active tobacco smoker. Denies recreational drug use or alcohol use Smoking Status: Current every day smoker Past Alcohol Use History: None Reported Additional Past Alcohol Use History / Comment(s): Pt. admits to occasional ETOH use. BAT 0. Past Drug Use History: Cocaine, Marijuana, Methamphetamine Additional Drug Use History / Comment(s): Past history of substance abuse. Pt. denies drug use at this time. - Past Family History Mother Family Medical History: Cancer, Hypertension Additional Family Medical History / Comment(s): neuropathy; Mother had Colon Ca ncer Father Family Medical History: No Reported History Additional Family Medical History / Comment(s): Father is bipolar Medications and Allergies Home Medications Medication Instructions Recorded Confirmed Type Prazosin [Minipress] 1 mg PO BID 05/30/18 04/02/19 History DULoxetine HCL [Cymbalta] 60 mg PO BID 08/23/18 04/02/19 History Gabapentin 800 mg PO TID 12/16/18 04/02/19 History busPIRone HCl [Buspar] 30 mg PO BID 12/16/18 04/02/19 History Cephalexin [Keflex] 500 mg PO Q6HR 10 Days #40 cap 03/30/19 04/02/19 Rx Sulfamethox-Tmp 800-160Mg [Bactrim 1 tab PO Q12HR #20 tab 03/30/19 04/02/19 Rx DS 800-160 mg] Albuterol Inhaler [Ventolin Hfa 1 - 2 puff INHALATION RT-Q6H PRN 04/02/19 04/02/19 History Inhaler] traMADol HCL [Ultram] 100 mg PO BID 04/02/19 04/02/19 History Allergies Allergy/AdvReac Type Severity Reaction Status Date / Time latex Allergy Itching Verified 04/02/19 16:19 lithium AdvReac Vomiting Verified 04/02/19 16:19 pregabalin [From Lyrica] AdvReac Vomiting Verified 04/02/19 16:19 topiramate [From Topamax] AdvReac Abdominal Verified 04/02/19 16:19 Pain Surgical - Exam Vital Signs Temp Pulse Resp BP Pulse Ox 97.8 F 85 18 124/83 98 04/02/19 14:51 04/02/19 14:51 04/02/19 14:51 04/02/19 14:51 04/02/19 14:51 Results - Labs 04/02/19 15:30 04/02/19 15:30 Abnormal Lab Results - Last 24 Hours (Table) 04/02/19 04/02/19 Range/Units 15:30 15:30 Sodium 136 L (137-145) mmol/L Glucose 148 H (74-99) mg/dL Plasma Lactic Acid Alessio 2.2 H* (0.7-2.0) mmol/L Total Protein 6.2 L (6.3-8.2) g/dL Albumin 3.3 L (3.5-5.0) g/dL Microbiology - Last 24 Hours (Table) 04/02/19 23:25 Anaerobic Culture - Preliminary Face 04/02/19 23:25 Wound Culture - Preliminary Face Diabetes panel 04/02/19 04/02/19 Range/Units 15:13 15:30 Sodium 136 L (137-145) mmol/L Potassium 3.7 (3.5-5.1) mmol/L Chloride 104 (98-107) mmol/L Carbon Dioxide 25 (22-30) mmol/L BUN 12 (7-17) mg/dL Creatinine 0.71 (0.52-1.04) mg/dL Glucose 148 H (74-99) mg/dL Hemoglobin A1c 5.1 (4.0-6.0) % Calcium 8.5 (8.4-10.2) mg/dL AST 18 (14-36) U/L ALT 16 (4-34) U/L Alkaline Phosphatase 64 (38-126) U/L Total Protein 6.2 L (6.3-8.2) g/dL Albumin 3.3 L (3.5-5.0) g/dL Calcium panel 04/02/19 Range/Units 15:30 Calcium 8.5 (8.4-10.2) mg/dL Albumin 3.3 L (3.5-5.0) g/dL Pituitary panel 04/02/19 Range/Units 15:30 Sodium 136 L (137-145) mmol/L Potassium 3.7 (3.5-5.1) mmol/L Chloride 104 (98-107) mmol/L Carbon Dioxide 25 (22-30) mmol/L BUN 12 (7-17) mg/dL Creatinine 0.71 (0.52-1.04) mg/dL Glucose 148 H (74-99) mg/dL Calcium 8.5 (8.4-10.2) mg/dL Adrenal panel 04/02/19 Range/Units 15:30 Sodium 136 L (137-145) mmol/L Potassium 3.7 (3.5-5.1) mmol/L Chloride 104 (98-107) mmol/L Carbon Dioxide 25 (22-30) mmol/L BUN 12 (7-17) mg/dL Creatinine 0.71 (0.52-1.04) mg/dL Glucose 148 H (74-99) mg/dL Calcium 8.5 (8.4-10.2) mg/dL Total Bilirubin 0.3 (0.2-1.3) mg/dL AST 18 (14-36) U/L ALT 16 (4-34) U/L Alkaline Phosphatase 64 (38-126) U/L Total Protein 6.2 L (6.3-8.2) g/dL Albumin 3.3 L (3.5-5.0) g/dL
[2019-04-03] MEDS ORDERED: VANCOMYCIN IV PER PHARMACY 1 EACH MISC MISCELLANE PRN (23:45)
--- NOTE | 2019-04-03 23:51 | P.CONS ---
History of Present Illness - Reason for Consult Consult date: 04/03/19 Left facial abscess and cellulitis Requesting physician: Alberto Gonzalez - Chief Complaint Left facial pain swelling redness x few days - History of Present Illness Patient is a 43-year-old female started having a problem with a left facial swelling and redness about a week ago on last Wednesday patient mentioned he started like a small pimple and area becoming increased in size and becoming painful she presented to the [facility] ER on 03/30/2019 apparently the patient did have a CT that was negative for any abscess she was discharged home on oral Bactrim DS and Keflex with the patient took however the patient mentioned she has progressive pain and swelling of the left facial area that has increased in severity patient described the pain to be throbbing almost 10 out of 10 in severity with no radiation with associated swelling and redness patient apparently did have attempted drainage of this area which was unsuccessful done in the ER subsequently the area opened up spontaneously this morning culture has been obtained patient currently is being treated with Zosyn and infectious disease was consulted for further recommendation regarding antibiotic therapy, CT was repeated today which did show phelgom but no drainable abscess Review of Systems Positive point has been mentioned in the HPI rest of the systems are negative Past Medical History Past Medical History: Asthma, COPD, Fibromyalgia, GERD/Reflux, Hypertension, Musculoskeletal Disorder, Osteoarthritis (OA) Additional Past Medical History / Comment(s): Pt denies HTN/CHF but takes water pills. Neuropathy feet/legs and hands, bulging discs, chronic low back pain, DDD, pt needs bilateral total knees states, "it's bone on bone.", past cellulitis bilateral lower legs, unsteady gait, lindsey fever as a child. History of Any Multi-Drug Resistant Organisms: MRSA Year Discovered:: 12/11/18 MDRO Source:: FOOT Past Surgical History: Hysterectomy, Orthopedic Surgery, Tubal Ligation Additional Past Surgical History / Comment(s): Right knee arthroscopic surg x3; LEEP procedure, partial hysterectomy 2009/ovaries intact, colonoscopy 2013, Past Anesthesia/Blood Transfusion Reactions: No Reported Reaction Past Psychological History: Anxiety, Bipolar, Depression Additional Psychological History / Comment(s): [facility] patient. Past history of substance abuse. single. Did not relate to having children. Does have a pet dog. No travel. The experience. Active tobacco smoker. Denies recreational drug use or alcohol use Smoking Status: Current every day smoker Past Alcohol Use History: None Reported Additional Past Alcohol Use History / Comment(s): Pt. admits to occasional ETOH use. BAT 0. Past Drug Use History: Cocaine, Marijuana, Methamphetamine Additional Drug Use History / Comment(s): Past history of substance abuse. Pt. denies drug use at this time. - Past Family History Mother Family Medical History: Cancer, Hypertension Additional Family Medical History / Comment(s): neuropathy; Mother had Colon Cancer Father Family Medical History: No Reported History Additional Family Medical History / Comment(s): Father is bipolar Medications and Allergies Home Medications Medication Instructions Recorded Confirmed Type Prazosin [Minipress] 1 mg PO BID 05/30/18 04/02/19 History DULoxetine HCL [Cymbalta] 60 mg PO BID 08/23/18 04/02/19 History Gabapentin 800 mg PO TID 12/16/18 04/02/19 History busPIRone HCl [Buspar] 30 mg PO BID 12/16/18 04/02/19 History Cephalexin [Keflex] 500 mg PO Q6HR 10 Days #40 cap 03/30/19 04/02/19 Rx Sulfamethox-Tmp 800-160Mg [Bactrim 1 tab PO Q12HR #20 tab 03/30/19 04/02/19 Rx DS 800-160 mg] Albuterol Inhaler [Ventolin Hfa 1 - 2 puff INHALATION RT-Q6H PRN 04/02/19 04/02/19 History Inhaler] traMADol HCL [Ultram] 100 mg PO BID 04/02/19 04/02/19 History Allergies Allergy/AdvReac Type Severity Reaction Status Date / Time latex Allergy Itching Verified 04/02/19 16:19 lithium AdvReac Vomiting Verified 04/02/19 16:19 pregabalin [From Lyrica] AdvReac Vomiting Verified 04/02/19 16:19 topiramate [From Topamax] AdvReac Abdominal Verified 04/02/19 16:19 Pain Physical Exam Vitals: Vital Signs Temp Pulse Resp BP Pulse Ox 04/03/19 12:20 97.6 F 64 21 121/76 94 L 04/03/19 06:48 97.5 F L 69 16 143/86 94 L 04/02/19 23:00 98.1 F 74 20 127/81 94 L 04/02/19 17:13 97.7 F 72 16 149/87 96 Intake and Output 04/03/19 04/03/19 04/03/19 06:59 14:59 22:59 Intake Total 2009 Balance 2009 Intake: IV 1140 Piperacillin-Tazobactam 3 100 .375 gm In Sodium Chloride 0.9% 100 ml @ 25 mls/hr IVPB Q8HR [facility] Rx# :[id number] Sodium Chloride 0.9% 1, 1040 000 ml @ 130 mls/hr IV . Q7H42M [facility] Rx#:[id number] Oral 870 Other: # Voids 1 1 0 GENERAL DESCRIPTION: Middle-aged female lying in bed, no distress. No tachypnea or accessory muscle of respiration use. HEENT: Shows Pallor , no scleral icterus. Oral mucous membrane is dry. No pharyngeal erythema or thrush. Left facial area did have induration swelling with a woundin the slough tissue or purulent drainage NECK: Trachea central, no thyromegaly. LUNGS: Unlabored breathing. Clear to auscultation anteriorly. No wheeze or crackle. HEART: S1, S2, regular rate and rhythm. No loud murmur ABDOMEN: Soft, no tenderness , guarding or rigidity, no organomegaly EXTREMITIES: No edema of feet. SKIN: No rash, no masses palpable. NEUROLOGICAL: The patient is awake, alert, oriented x3, mood and affect normal. Results CBC & Chem 7: 04/02/19 15:30 04/02/19 15:30 Labs: Microbiology - Last 24 Hours (Table) 04/02/19 23:25 Anaerobic Culture - Preliminary Face 04/02/19 23:25 Wound Culture - Preliminary Face Assessment and Plan Assessment: 1-patient with left facial abscess and cellulitis in this patient symptoms started as a pimple with area of induration and spontaneous drainage likely secondary to gram-positive skin phil such as strep and will need to cover for giving associated MRSA less likely gram-negative infection (1) Facial abscess Current Visit: Yes Status: Acute Code(s): L02.01 - CUTANEOUS ABSCESS OF FACE SNOMED Code(s): 032227841 (2) Failure of outpatient treatment Current Visit: Yes Status: Acute Code(s): Z78.9 - OTHER SPECIFIED HEALTH STATUS SNOMED Code(s): 988094542 Plan: 1-discontinue Zosyn 2-Vancomycin pharmacy to dose target trough of 15 while watching her kidney function and Vanco trough closely We will follow on clinical condition and cultures to further adjust medication if needed Thank you for this consultation will follow this patient with you Time with Patient: Greater than 30
[2019-04-04] MEDS ORDERED: VANCOMYCIN 2,500 MG in SODIUM CHLORIDE 0.9% 500 ML 500 ML IVPB ONE (01:00)
[2019-04-04] MEDS: HYDROmorphone 0.5 MG/0.5 ML SYRINGE IVP PRN ×5 (03:26→20:28)
[2019-04-04] MEDS: DULoxetine HCL 60 MG CAPSULE.DR PO SCH ×2 (07:55→20:28)
[2019-04-04] MEDS: busPIRone HCl 10 MG TAB PO SCH ×2 (07:55→20:28)
[2019-04-04] MEDS: NICOTINE 21MG/24HR PATCH TRANSDERM SCH (07:56)
[2019-04-04] MEDS: SODIUM CHLORIDE 0.9% 1,000 ML IV SCH ×3 (07:56→21:16)
[2019-04-04] MEDS: PRAZOSIN 1 MG CAP PO SCH ×2 (07:58→20:28)
[2019-04-04] MEDS: GABAPENTIN 400 MG CAP PO SCH ×3 (08:00→20:29)
[2019-04-04] MEDS: traMADol 50 MG TAB PO SCH ×2 (08:01→20:29)
--- NOTE | 2019-04-04 12:36 | P.PN ---
Subjective Progress Note Date: 04/04/19 CHIEF COMPLAINT: left facial abscess HISTORY OF PRESENT ILLNESS: 43-year-old female who is admitted to the hospital secondary to left facial abscess. Patient underwent repeat CAT scan yesterday revealing left facial phlegmon without evidence for drainable abscess. Phlegmon measuring 1.7 x 1.4 cm. Patient reports her pain is controlled at this time. Vital signs are stable. Patient is afebrile. PHYSICAL EXAM: VITAL SIGNS: Reviewed. GENERAL: Well-developed in no acute distress. HEENT: No sclera icterus. Extraocular movements grossly intact. Moist buccal mucosa. Head is atraumatic, normocephalic. ABDOMEN: Soft. Nondistended. Nontender. NEUROLOGIC: Alert and oriented. Cranial nerves II through XII grossly intact. SKIN: Left cheek abscess. Wound is open with purulent drainage. Surrounding induration and erythema. ASSESSMENT: 1. Left facial abscess PLAN: Continue IV antibiotics No surgical intervention recommended at this time as computed tomography scan does not reveal evidence for drainable abscess and wound is spontaneously draining at this time Nurse practitioner note has been reviewed by physician. Signing provider agrees with the documented findings, assessment, and plan of care. Objective - Vital Signs Vital signs: Vital Signs Temp 97.9 F 04/04/19 06:18 Pulse 75 04/04/19 06:18 Resp 16 04/04/19 06:18 BP 158/95 04/04/19 06:18 Pulse Ox 94 L 04/04/19 06:18 Intake & Output 04/03/19 04/04/19 04/04/19 18:59 06:59 18:59 Intake Total 2009 Balance 2009 Intake: IV 1140 Piperacillin-Tazobactam 3 100 .375 gm In Sodium Chloride 0.9% 100 ml @ 25 mls/hr IVPB Q8HR [facility] Rx# :[id number] Sodium Chloride 0.9% 1, 1040 000 ml @ 130 mls/hr IV . Q7H42M [facility] Rx#:[id number] Oral 870 Other: Voiding Method Toilet # Voids 1 4 - Labs CBC & Chem 7: 04/02/19 15:30 04/02/19 15:30 Labs: Microbiology - Last 24 Hours (Table) 04/02/19 23:25 Gram Stain - Preliminary Face Wound Culture - Preliminary Presumptive MRSA 04/02/19 15:30 Blood Culture - Preliminary Blood No Growth after 24 hours 04/02/19 23:25 Anaerobic Culture - Preliminary Face
[2019-04-04] MEDS: VANCOMYCIN 2,500 MG in SODIUM CHLORIDE 0.9% 500 ML 500 ML IVPB SCH (13:58)
[2019-04-04] MEDS ORDERED: VANCOMYCIN 2,000 MG in SODIUM CHLORIDE 0.9% 500 ML 500 ML IVPB SCH (14:00)
--- NOTE | 2019-04-04 16:26 | PN ---
PROGRESS NOTE DATE OF SERVICE: 04/04/2019 REASON FOR FOLLOWUP: Left facial abscess and cellulitis. INTERVAL HISTORY: The patient is currently afebrile, still complaining of pain to the left facial area but no worsening. Denies any chest pain, shortness of breath or cough. No abdominal pain or diarrhea. PHYSICAL EXAMINATION: Blood pressure 150/83 with a pulse of 83, temperature 99.8. She is 96% on room air. General description is a middle-aged female lying in bed in no distress. RESPIRATORY SYSTEM: Unlabored breathing. Clear to auscultation anteriorly. HEART: S1, S2. Regular rate and rhythm. ABDOMEN: Soft. No tenderness. Left facial area still has area of induration; minimal drainage. LABS: Hemoglobin 13.9, white count 7.3, creatinine 0.71. Wound culture with presumptive MRSA. DIAGNOSTIC IMPRESSION AND PLAN: Patient with left facial cellulitis in this patient who is currently covered with vancomycin; to continue while waiting for sensitivity to finalize and monitor clinical course closely. Continue supportive care. MMODL / IJN: [id number] /
[2019-04-05] MEDS: HYDROmorphone 0.5 MG/0.5 ML SYRINGE IVP PRN ×5 (00:02→15:07)
[2019-04-05] MEDS: VANCOMYCIN 2,500 MG in SODIUM CHLORIDE 0.9% 500 ML 500 ML IVPB SCH ×2 (01:17→13:43)
[2019-04-05] MEDS: SODIUM CHLORIDE 0.9% 1,000 ML IV SCH ×2 (01:17→07:23)
[2019-04-05 05:49] VITALS: TEMP 97.9
--- NOTE | 2019-04-05 06:13 | PN ---
PROGRESS NOTE This 43-year-old white female facial abscess, failed outpatient treatment. She is on broad-spectrum IV vancomycin. CARDIOVASCULAR: S1, S2. LUNGS: Clear. INTEGUMENT: Shows left facial phlegmon versus abscess. PLAN: Continue with vancomycin. Possible surgical repair. Possibly switch to oral antibiotics on discharge summary. MMODL / IJN: [id number] /
[2019-04-05] MEDS: NICOTINE 21MG/24HR PATCH TRANSDERM SCH (07:22)
[2019-04-05] MEDS: busPIRone HCl 10 MG TAB PO SCH (07:22)
[2019-04-05] MEDS: PRAZOSIN 1 MG CAP PO SCH (07:22)
[2019-04-05] MEDS: GABAPENTIN 400 MG CAP PO SCH ×2 (07:22→15:07)
[2019-04-05] MEDS: DULoxetine HCL 60 MG CAPSULE.DR PO SCH (07:23)
[2019-04-05] MEDS: traMADol 50 MG TAB PO SCH (07:23)
[2019-04-05 11:10] LABS: African American GFR (CKD) >90 (>60 ml/min/1.73 sqM); Anion Gap 8 mmol/L; Blood Urea Nitrogen 9 mg/dL (7-17); Calcium 9.1 mg/dL (8.4-10.2); Carbon Dioxide 25 mmol/L (22-30); Chloride 105 mmol/L (98-107); Glucose 97 mg/dL (74-99); Non-African American GFR(CKD) >90 (>60 ml/min/1.73 sqM); Potassium 4.2 mmol/L (3.5-5.1); Sodium 138 mmol/L (137-145)
--- NOTE | 2019-04-05 12:54 | P.PN ---
Subjective Progress Note Date: 04/05/19 CHIEF COMPLAINT: left facial abscess HISTORY OF PRESENT ILLNESS: 43-year-old female who is admitted to the hospital secondary to left facial abscess. Patient reports her pain is controlled at this time. Vital signs are stable. Patient is afebrile. PHYSICAL EXAM: VITAL SIGNS: Reviewed. GENERAL: Well-developed in no acute distress. HEENT: No sclera icterus. Extraocular movements grossly intact. Moist buccal mucosa. Head is atraumatic, normocephalic. ABDOMEN: Soft. Nondistended. Nontender. NEUROLOGIC: Alert and oriented. Cranial nerves II through XII grossly intact. SKIN: Left cheek abscess. Wound is open with purulent drainage. Surrounding induration and erythema. ASSESSMENT: 1. Left facial abscess PLAN: Continue IV antibiotics No surgical intervention recommended at this time as computed tomography scan does not reveal evidence for drainable abscess and wound is spontaneously draining at this time We will sign off. Please reconsult if needed. Discharge per medicine. Nurse practitioner note has been reviewed by physician. Signing provider agrees with the documented findings, assessment, and plan of care. Objective - Vital Signs Vital signs: Vital Signs Temp 97.9 F 04/05/19 05:48 Pulse 95 04/05/19 05:48 Resp 18 04/05/19 05:48 BP 156/92 04/05/19 05:48 Pulse Ox 95 04/05/19 05:48 Intake & Output 04/04/19 04/05/19 04/05/19 18:59 06:59 18:59 Intake Total 1080 Balance 1080 Intake: Oral 1080 Other: Voiding Method Toilet Toilet Toilet # Voids 3 5 - Labs CBC & Chem 7: 04/02/19 15:30 04/05/19 10:24 Labs: Microbiology - Last 24 Hours (Table) 04/02/19 23:25 Gram Stain - Final Face Wound Culture - Final Methicillin resist S. aureus 04/02/19 15:30 Blood Culture - Preliminary Blood No Growth after 48 hours
--- NOTE | 2019-04-05 13:28 | P.PN ---
Subjective Progress Note Date: 04/05/19 This is a 43-year-old white female admitted with left facial abscess, failed outpatient treatment. Cultures reporting presumptive MRSA, sensitivities pending. Maintained on vancomycin as per ID. afebrile. Denies any chest pain, palpitations or shortness of breath. Good diet intake with no nausea vomiting or diarrhea. Denies abdominal pain. Pain controlled. Objective - Vital Signs Vital signs: Vital Signs Temp 97.9 F 04/05/19 05:48 Pulse 95 04/05/19 05:48 Resp 18 04/05/19 05:48 BP 156/92 04/05/19 05:48 Pulse Ox 95 04/05/19 05:48 Intake & Output 04/04/19 04/05/19 04/05/19 18:59 06:59 18:59 Intake Total 1080 Balance 1080 Intake: Oral 1080 Other: Voiding Method Toilet Toilet Toilet # Voids 3 5 - Exam PHYSICAL EXAM: VITAL SIGNS: As above GENERAL: sitting up in bed, no acute distress HEENT: Conj'unctivae normal. eyes normal, extraocular movements grossly intact.Trachea midline. Oral mucosa moist NECK: No JVD. No thyroid enlargement. No LNs CARDIOVASCULAR: S1, S2 regular.. No murmur RESPIRATION: Breath sounds diminished in the bases. ABDOMEN: Soft, nontender . No guarding. no masses palpable. Bowel sounds heard. LEGS: No edema. no swelling PSYCHIATRY: Alert and oriented X3, mood and affect normal. NERVOUS SYSTEM: Cranial N 2-12 grossly normal. Moves all 4 limbs. No focal deficits. Strength and sensation grossly intact.. Skin: Left facial induration with minimal purulent drainage. Microbiology 04/02/19 23:25 Face Gram Stain - Final 04/02/19 23:25 Face Wound Culture - Final Methicillin resist S. aureus 04/02/19 15:30 Blood Blood Culture - Preliminary No Growth after 48 hours 04/02/19 23:25 Face Anaerobic Culture - Preliminary - Labs CBC & Chem 7: 04/02/19 15:30 04/05/19 10:24 Labs: Microbiology - Last 24 Hours (Table) 04/02/19 23:25 Gram Stain - Final Face Wound Culture - Final Methicillin resist S. aureus 04/02/19 15:30 Blood Culture - Preliminary Blood No Growth after 48 hours Assessment and Plan Assessment: Left facial abscess, failed outpatient treatment, wound cx reporting presumptive MRSA, sensitivities pending COPD, stable Gastroesophageal reflux disease Bipolar History of polysubstance abuse Ongoing nicotine dependence Plan: Continue on current medication regime, monitoring and symptomatically treatment. Evaluated by surgery with no surgical intervention recommended at this time. Antibiotics as per infectious disease. Discharge planning in pr ogress pending sensitivities, The impression and plan of care has been dictated as directed. : I performed a history and examination of this patient, discussed the same with the dictator. I agree with the dictator's note ,documented as a scribe. Any additional findings or plans will be noted.
--- NOTE | 2019-04-05 14:13 | PN ---
PROGRESS NOTE DATE OF SERVICE: 04/05/2019. REASON FOR FOLLOWUP: Left facial abscess and cellulitis with MRSA. INTERVAL HISTORY: The patient is currently afebrile. The patient has been breathing comfortably. The left facial swelling and redness have slightly increased. Still complaining of pain and wanted the pain medication to be upped. No nausea. No vomiting. No abdominal pain. No diarrhea. PHYSICAL EXAMINATION: Blood pressure 156/92 with a pulse of 95, temperature 97.9, she is 95% on room air. General description is a middle-aged female up in the room in no distress. HEENT: Left facial swelling, redness, and irritation have decreased. LUNGS: Unlabored breathing. Clear to auscultation anteriorly. HEART: S1 and S2. Regular rate and rhythm. ABDOMEN: Soft. No tenderness. LABS: Creatinine 0.72, potassium is 4.1. Culture revealed MRSA sensitive to Bactrim. DIAGNOSTIC IMPRESSION AND PLAN: Patient with left facial abscess and cellulitis status post diagnostic drainage. Patient has shown clinical improvement. She will finish therapy with Bactrim DS one b.i.d. for 10 days and close outpatient followup. MMODL / IJN: [id number] /
[2019-04-05 14:30] VITALS: BP 145/92; PULSE 82; RESP 16
[2019-04-06] MEDS ORDERED: VANCOMYCIN TROUGH DUE 1 EACH MISC MISCELLANE ONE (13:00)
== END 2019-04-05 16:14 | disposition home or self-care (01) | DRG 603 ==
LOC: EC 14:46 → 6NMEDSUR 16:11
PROVIDERS: ADMIT Family Medicine; ATTEND Family Medicine
DX: L03.211 Cellulitis of face (principal); F31.30 Bipolar disorder, current episode depressed, mild or moderate severity, unspecified; L02.01 Cutaneous abscess of face; E86.0 Dehydration; G62.9 Polyneuropathy, unspecified; F41.9 Anxiety disorder, unspecified; J44.9 Chronic obstructive pulmonary disease, unspecified; M79.7 Fibromyalgia; K21.9 Gastro-esophageal reflux disease without esophagitis; I10 Essential (primary) hypertension; R59.0 Localized enlarged lymph nodes; M19.90 Unspecified osteoarthritis, unspecified site; G89.29 Other chronic pain; M54.5 Low back pain; F15.11 Other stimulant abuse, in remission; Z71.6 Tobacco abuse counseling; F17.200 Nicotine dependence, unspecified, uncomplicated; Z79.899 Other long term (current) drug therapy; Z86.14 Personal history of Methicillin resistant Staphylococcus aureus infection; Z86.19 Personal history of other infectious and parasitic diseases; Z90.711 Acquired absence of uterus with remaining cervical stump; Z98.51 Tubal ligation status; Z88.8 Allergy status to other drugs, medicaments and biological substances; Z91.040 Latex allergy status; Z80.0 Family history of malignant neoplasm of digestive organs; Z82.49 Family history of ischemic heart disease and other diseases of the circulatory system; Z82.0 Family history of epilepsy and other diseases of the nervous system
CPT/HCPCS: 10060; 36415; 70486; 70487; 76705; 80048; 80053; 81001; 81025; 83036; 83605; 83690; 85025; 85610; 85730; 87040; 87070; 87075; 87077; 87086; 87186; 87205; 96361; 96365; 96375; 99284

== ENCOUNTER 2019-08-05 23:49 | Emergency (ER) | payer MEDICARE, OTHER ==
[2019-08-06] MEDS ORDERED: HYDROcodone/APAP 7.5-325MG 1 EACH TAB PO ONE (00:52)
[2019-08-06] MEDS ORDERED: VANCOMYCIN IV PER PHARMACY 1 EACH MISC MISCELLANE PRN (00:52)
[2019-08-06] MEDS ORDERED: VANCOMYCIN 2,250 MG in SODIUM CHLORIDE 0.9% 500 ML 500 ML IVPB STA (00:54)
[2019-08-06 02:06] LABS: Basophils % (A) 0 %; Eosinophils # (A) 0.3 k/uL (0-0.7); Eosinophils % (A) 3 %; HCT 46.9 % (34.0-46.0); HGB 15.7 gm/dL (11.4-16.0); Lymphocytes # (A) 1.8 k/uL (1.0-4.8); Lymphocytes % (A) 17 %; MCH 32.4 pg (25.0-35.0); MCHC 33.5 g/dL (31.0-37.0); Mean Platelet Volume 8.1; Monocytes # (A) 0.7 k/uL (0-1.0); Monocytes % (A) 7 %; Neutrophils # (A) 7.7 k/uL (1.3-7.7); Neutrophils % (A) 72 %; Platelet Count 191 k/uL (150-450); RBC 4.84 m/uL (3.80-5.40); RDW 13.7 % (11.5-15.5); WBC 10.8 k/uL (3.8-10.6)
[2019-08-06 03:01] LABS: African American GFR (CKD) >90 (>60 ml/min/1.73 sqM); C Reactive Protein 35.6 mg/L (<10.0); Calcium 9.2 mg/dL (8.4-10.2); Carbon Dioxide 23 mmol/L (22-30); Chloride 106 mmol/L (98-107); Glucose 106 mg/dL (74-99); Non-African American GFR(CKD) >90 (>60 ml/min/1.73 sqM)
[2019-08-06 03:08] LABS: Anion Gap 8 mmol/L; Sodium 137 mmol/L (137-145)
[2019-08-06 03:09] LABS: Blood Urea Nitrogen 7 mg/dL (7-17); Potassium 4.9 mmol/L (3.5-5.1)
--- NOTE | 2019-08-06 03:14 | ED ---
Skin/Abscess/FB HPI - General Chief complaint: Skin/Abscess/Foreign Body Stated complaint: Facial swelling Time Seen by Provider: 08/06/19 00:05 Source: patient, family Mode of arrival: ambulatory Limitations: no limitations - History of Present Illness Initial comments: 's patient is 43-year-old woman with history of previous MRSA infection who presents to be evaluated for a number of pustular lesions to the right side of face and one to the upper chest. The patient states they have come on over the past 1-2 days. She states that she did attempt to squeeze drainage from them without much success other than one to the right cheek had a little bit of drainage. Patient denies any systemic symptoms, no fever or chills, chest pain, dyspnea, or palpitations. MD complaint: abscess/boil Onset/Timin -: days(s) Tetanus Up to Date: yes Location: face, chest Severity: moderate Quality: aching Consistency: constant Improves with: none Worsens with: none Context: none Associated symptoms: denies other symptoms Treatments Prior to Arrival: attempted to drain pus at home - Related Data Home Medications Medication Instructions Recorded Confirmed Prazosin [Minipress] 1 mg PO BID 05/30/18 04/02/19 DULoxetine HCL [Cymbalta] 60 mg PO BID 08/23/18 04/02/19 Gabapentin 800 mg PO TID 12/16/18 04/02/19 busPIRone HCl [Buspar] 30 mg PO BID 12/16/18 04/02/19 Albuterol Inhaler (Mhu) [Ventolin 1 - 2 puff INHALATION RT-Q6H PRN 04/02/19 04/02/19 Hfa Inhaler (Mhu)] traMADol HCL [Ultram] 100 mg PO BID 04/02/19 04/02/19 Previous Rx's Medication Instructions Recorded Cephalexin [Keflex] 500 mg PO Q6HR 10 Days #40 cap 03/30/19 Sulfamethox-Tmp 800-160Mg [Bactrim 1 tab PO Q12HR #20 tab 03/30/19 DS 800-160 mg] Nicotine 21Mg/24Hr Patch [Habitrol] 1 patch TRANSDERM DAILY #0 patch 04/05/19 Sulfamethox-Tmp 800-160Mg [Bactrim 1 tab PO Q12HR #20 tab 04/05/19 DS 800-160 mg] HYDROcodone/APAP 10-325MG [[place] 1 tab PO Q6HR PRN 3 Days #12 tab 08/06/19 10-325] Sulfamethox-Tmp 800-160Mg [Bactrim 1 each PO Q12HR #14 tab 08/06/19 Ds] Allergies Allergy/AdvReac Type Severity Reaction Status Date / Time latex Allergy Itching Verified 08/05/19 23:57 lithium AdvReac Vomiting Verified 08/05/19 23:57 pregabalin [From Lyrica] AdvReac Vomiting Verified 08/05/19 23:57 topiramate [From Topamax] AdvReac Abdominal Verified 08/05/19 23:57 Pain Review of Systems ROS Statement: Those systems with pertinent positive or pertinent negative responses have been documented in the HPI. ROS Other: All systems not noted in ROS Statement are negative. Constitutional: Denies: fever, chills Respiratory: Denies: cough, dyspnea Cardiovascular: Denies: chest pain, palpitations Skin: Reports: as per HPI, lesions Past Medical History Past Medical History: Asthma, COPD, Fibromyalgia, GERD/Reflux, Hypertension, Musculoskeletal Disorder, Osteoarthritis (OA) Additional Past Medical History / Comment(s): Pt denies HTN/CHF but takes water pills. Neuropathy feet/legs and hands, bulging discs, chronic low back pain, DDD, pt needs bilateral total knees states, "it's bone on bone.", past cellulitis bilateral lower legs, unsteady gait, lindsey fever as a child. History of Any Multi-Drug Resistant Organisms: MRSA Date of last positivie culture/infection: 04/02/19 MDRO Source:: FACE Past Surgical History: Hysterectomy, Orthopedic Surgery, Tubal Ligation Additional Past Surgical History / Comment(s): Right knee arthroscopic surg x3; LEEP procedure, partial hysterectomy 2009/ovaries intact, colonoscopy 2013, Past Anesthesia/Blood Transfusion Reactions: No Reported Reaction Past Psychological History: Anxiety, Bipolar, Depression Smoking Status: Current every day smoker Past Alcohol Use History: None Reported Past Drug Use History: Cocaine, Marijuana, Methamphetamine - Past Family History Mother Family Medical History: Cancer, Hypertension Additional Family Medical History / Comment(s): neuropathy; Mother had Colon Cancer Father Family Medical History: No Reported History Additional Family Medical History / Comment(s): Father is bipolar General Exam Limitations: no limitations General appearance: alert, in no apparent distress Head exam: Present: atraumatic, normocephalic Eye exam: Present: normal appearance Respiratory exam: Present: normal lung sounds bilaterally. Absent: respiratory distress, wheezes, rales, rhonchi, stridor Cardiovascular Exam: Present: regular rate, normal rhythm, normal heart sounds. Absent: systolic murmur, diastolic murmur, rubs, gallop Skin exam: Present: warm, dry, intact, normal color, other (Patient has approximately 5 or 6 small pustular lesions 1 to the right upper chest wall, remainder to the right side of the face. There is no palpable abscess. The patient has excoriated most of these and they have drained.) Course Vital Signs 08/05/19 08/06/19 23:52 04:56 Temperature 98.5 F 97.9 F Pulse Rate 96 75 Respiratory 20 18 Rate Blood Pressure 140/93 133/75 O2 Sat by Pulse 97 100 Oximetry Medical Decision Making - Medical Decision Making Patient is 43-year-old woman with multiple pustules concerning for MRSA i nfection. Started on antibiotics here and will continue. Discussed the appropriate follow-up as well as return parameters. She will maintain low threshold for returning given previous history of MRSA infection. In addition patient concerned because she is having pains and her pain doctor had discharged her. She is written for small amount of [facility]. - Lab Data Result diagrams: 08/06/19 01:51 08/06/19 02:43 Lab Results 08/06/19 08/06/19 Range/Units 01:51 02:43 WBC 10.8 H (3.8-10.6) k/uL RBC 4.84 (3.80-5.40) m/uL Hgb 15.7 (11.4-16.0) gm/dL Hct 46.9 H (34.0-46.0) % MCV 97.0 (80.0-100.0) fL MCH 32.4 (25.0-35.0) pg MCHC 33.5 (31.0-37.0) g/dL RDW 13.7 (11.5-15.5) % Plt Count 191 (150-450) k/uL Neutrophils % 72 % Lymphocytes % 17 % Monocytes % 7 % Eosinophils % 3 % Basophils % 0 % Neutrophils # 7.7 (1.3-7.7) k/uL Lymphocytes # 1.8 (1.0-4.8) k/uL Monocytes # 0.7 (0-1.0) k/uL Eosinophils # 0.3 (0-0.7) k/uL Basophils # 0.0 (0-0.2) k/uL Sodium 137 (137-145) mmol/L Potassium 4.9 (3.5-5.1) mmol/L Chloride 106 (98-107) mmol/L Carbon Dioxide 23 (22-30) mmol/L Anion Gap 8 mmol/L BUN 7 (7-17) mg/dL Creatinine 0.51 L (0.52-1.04) mg/dL Est GFR (CKD-EPI)AfAm >90 (>60 ml/min/1.73 sqM) Est GFR (CKD-EPI)NonAf >90 (>60 ml/min/1.73 sqM) Glucose 106 H (74-99) mg/dL Calcium 9.2 (8.4-10.2) mg/dL C-Reactive Protein 35.6 H (<10.0) mg/L Disposition Clinical Impression: Skin pustule Disposition: HOME SELF-CARE Condition: Good Instructions (If sedation given, give patient instructions): Abscess (ED) Prescriptions: Sulfamethox-Tmp 800-160Mg [Bactrim Ds] 1 each PO Q12HR #14 tab HYDROcodone/APAP 10-325MG [[place] 10-325] 1 tab PO Q6HR PRN 3 Days #12 tab PRN Reason: Pain Is patient prescribed a controlled substance at d/c from ED?: Yes When asked, does pt state using other controlled substances?: No If prescribed controlled substance>3 days was MAPS reviewed?: Prescribed <3 Days If opioid is for acute pain is fill amount 7 days or less?: Yes If Rx opioid, was Start Talking consent form obtained?: Yes Referrals: None,Stated [Primary Care Provider] - 1-2 days Jeremy Villegas MD [Medical Doctor] - 1-2 days
[2019-08-06 05:04] VITALS: BP 133/75; PULSE 75; RESP 18; TEMP 97.9
[2019-08-06] MEDS ORDERED: VANCOMYCIN 2,000 MG in SODIUM CHLORIDE 0.9% 500 ML 500 ML IVPB SCH (10:00)
== END 2019-08-06 05:04 | disposition home or self-care (01) ==
LOC: EC 23:49
DX: L08.89 Other specified local infections of the skin and subcutaneous tissue (principal); F41.9 Anxiety disorder, unspecified; F31.9 Bipolar disorder, unspecified; J44.9 Chronic obstructive pulmonary disease, unspecified; M79.7 Fibromyalgia; I10 Essential (primary) hypertension; G62.9 Polyneuropathy, unspecified; G89.29 Other chronic pain; M54.5 Low back pain; F17.200 Nicotine dependence, unspecified, uncomplicated; Z91.048 Other nonmedicinal substance allergy status; Z79.891 Long term (current) use of opiate analgesic; Z79.51 Long term (current) use of inhaled steroids; Z79.899 Other long term (current) drug therapy; Z86.14 Personal history of Methicillin resistant Staphylococcus aureus infection; Z91.040 Latex allergy status; Z88.8 Allergy status to other drugs, medicaments and biological substances
CPT/HCPCS: 36415; 80048; 85025; 86140; 99283; 96365; 96366 ×2; J3370

== ENCOUNTER 2019-09-01 18:02 | Emergency (ER) | payer MEDICARE, OTHER ==
[2019-09-01 18:09] VITALS: RESP 18
[2019-09-01] MEDS ORDERED: CEPHALEXIN 500MG STARTER PACK 4 CAP BTL PO STA (18:45)
[2019-09-01] MEDS ORDERED: LIDOCAINE 1% INJ 10MG/ML (20 ML MDV) SQ STA (18:45)
[2019-09-01] MEDS ORDERED: HYDROcodone/APAP 5-325MG 1 EACH TAB PO STA (18:45)
[2019-09-01] MEDS ORDERED: SULFAMETH-TMP DS STARTER PACK 2 TAB BTL PO STA (18:45)
[2019-09-01] MEDS ORDERED: Acetaminophen-Codeine 300-30mg TAB PO STA (19:33)
--- NOTE | 2019-09-01 19:33 | ED ---
General Adult HPI - General Chief complaint: Skin/Abscess/Foreign Body Stated complaint: Absess Time Seen by Provider: 09/01/19 18:11 Source: patient, RN notes reviewed, old records reviewed Mode of arrival: ambulatory Limitations: no limitations - History of Present Illness Initial comments: 43-year-old female presents via chief complaint of left axillary abscess. Reports that has been ongoing for the last 3 days. Denies any systemic symptoms. Denies any other complaints. Systemic: Pt denies fatigue, fever/chills, rash. Pt denies weakness, night s weats, weight loss. Neuro: Pt denies headache, visual disturbances, syncope or pre-syncope. HEENT: Pt denies ocular discharge or irritation, otalgia, rhinorrhea, pharyngitis or notable lymphadenopathy. Cardiopulmonary: Pt denies chest pain, SOB, heart palpitations, dyspnea on exertion. Abdominal/GI: Pt denies abdominal pain, n/v/d. : Pt denies dysuria, burning w/ urination, frequency/urgency. Denies new onset urinary or bowel incontinence. MSK: Pt denies myalgia, loss of strength or function in extremities. Neuro: Pt denies new onset weakness, paresthesias. - Related Data Home Medications Medication Instructions Recorded Confirmed DULoxetine HCL [Cymbalta] 60 mg PO BID 08/23/18 09/01/19 Gabapentin 800 mg PO TID 12/16/18 09/01/19 Cariprazine HCl [Vraylar] 3 mg PO DAILY 09/01/19 09/01/19 busPIRone HCL [Buspar] 30 mg PO BID 09/01/19 09/01/19 cloNIDine HCL [Catapres] 0.1 mg PO BID 09/01/19 09/01/19 Previous Rx's Medication Instructions Recorded HYDROcodone/APAP 10-325MG [[place] 1 tab PO Q6HR PRN 3 Days #12 tab 08/06/19 10-325] Cephalexin [Keflex] 500 mg PO Q6HR 10 Days #40 cap 09/01/19 Sulfamethox-Tmp 800-160Mg [Bactrim 1 tab PO Q12HR 10 Days #20 tab 09/01/19 DS 800-160 mg] Allergies Allergy/AdvReac Type Severity Reaction Status Date / Time latex Allergy Itching Verified 09/01/19 18:09 lithium AdvReac Vomiting Verified 09/01/19 18:09 pregabalin [From Lyrica] AdvReac Vomiting Verified 09/01/19 18:09 topiramate [From Topamax] AdvReac Abdominal Verified 09/01/19 18:09 Pain Review of Systems ROS Statement: Those systems with pertinent positive or pertinent negative responses have been documented in the HPI. ROS Other: All systems not noted in ROS Statement are negative. Past Medical History Past Medical History: Asthma, COPD, Fibromyalgia, GERD/Reflux, Hypertension, Musculoskeletal Disorder, Osteoarthritis (OA), Rheumatoid Arthritis (RA) Additional Past Medical History / Comment(s): Neuropathy feet/legs and hands, bulging discs, chronic low back pain, DDD. History of Any Multi-Drug Resistant Organisms: MRSA Date of last positivie culture/infection: 04/02/19 MDRO Source:: FACE Past Surgical History: Hysterectomy, Orthopedic Surgery, Tubal Ligation Additional Past Surgical History / Comment(s): Right knee arthroscopic surg x3; LEEP procedure, partial hysterectomy 2009/ovaries intact, colonoscopy 2013, Past Anesthesia/Blood Transfusion Reactions: No Reported Reaction Past Psychological History: Anxiety, Bipolar, Depression Smoking Status: Current every day smoker Past Alcohol Use History: Occasional Past Drug Use History: Cocaine, Marijuana, Methamphetamine - Past Family History Mother Family Medical History: Cancer, Hypertension Additional Family Medical History / Comment(s): neuropathy; Mother had Colon Cancer Father Family Medical History: No Reported History Additional Family Medical History / Comment(s): Father is bipolar General Exam - General Exam Comments Initial Comments: Constitutional: NAD, AOX3, Pt has pleasant affect. HEENT: NC/AT, trachea midline, neck supple, no lymphadenopathy. Posterior pharynx non erythematous, without exudates. External ears appear normal, without discharge. Mucous membranes moist. Eyes PERRLA, EOM intact. There is no scleral icterus. No pallor noted. Cardiopulmonary: RRR, no murmurs, rubs or gallops, no JVD noted. Lungs CTAB in anterior and posterior garcia. No peripheral edema. Abdominal exam: Abdomen soft and non-distended. Abdomen non-tender to palpation in all 4 quadrants. Bowel sounds active in LLQ. No hepatosplenomegaly. No ecchymosis Neuro: CN II-XII grossly intact. No nuchal rigidity. No raccon eyes, no del castillo sign, no hemotympanum. No cervical spinal tenderness. MSK: 3 x 3 cm abscess left axilla. Mild amount of surrounding cellulitis. Incision and drainage performed displayed purulent drainage. Full active ROM in upper and lower extremities, 5/5 stregnth. Limitations: no limitations Course Vital Signs 09/01/19 18:04 Temperature 98.1 F Pulse Rate 86 Respiratory 18 Rate Blood Pressure 145/96 O2 Sat by Pulse 97 Oximetry Procedures - [place] Protocol (Time Out) Procedure Performed:: Incision and drainage of left axilla Performing Provider: Bright Du Nurse: Yaritza Martin Patient Identification (2 identifiers required): Chart, Verbal, Arm Band, Name, Birthdate, Medical Record Number Patient/Legal Orthopedic Tech has Confirmed: Identity, Site, Procedure, Consent Site: Left axilla Site Marked: Yes Site Verified With Patient/Guardian: Yes - Incision & Drainage Consent Obtained: verbal consent, written consent Indication: left axillae Anesthetic Used: lidocaine 1% Amount (mLs): 2 I&D Cleaning Method: Chloroprep Sterile Field Used?: No Scalpel Used: #11 I&D Drainage Obtained: Pus Culture Obtained?: Yes Patient Tolerated Procedure: well Medical Decision Making - Medical Decision Making 43-year-old female patient presents to ED chief complaint of left axillary abscess has been causing her discomfort. Last 3 days. Patient denies any IV drug use. Has hysterectomy no chance of being . Physical exam displayed a centimeter abscess. Mild amount of surrounding cellulitis. Incision and drainage was performed displayed purulent drainage. Culture was obtained. Patient also wanted to evaluate her right axilla. She appears to have a small cyst. It is not erythematous nontender. Patient will monitor th is. Procedure chaperogned by NELSY Heath. Patient will be placed on Bactrim and Keflex. Will follow up with her primary care provider and will return to ER with any worsening symptoms. Case discussed with Dr. Duron. Disposition Clinical Impression: Abscess, Cellulitis Disposition: HOME SELF-CARE Condition: Stable Instructions (If sedation given, give patient instructions): Abscess (ED) Additional Instructions: Take antibiotics as directed. Follow-up with primary care provider tomorrow. Keep area loosely bandaged. Use warm compresses. Return to ER with any worsening symptoms. You may take the Tylenol 3 tomorrow morning if you're still having pain. Prescriptions: Sulfamethox-Tmp 800-160Mg [Bactrim DS 800-160 mg] 1 tab PO Q12HR 10 Days #20 tab Cephalexin [Keflex] 500 mg PO Q6HR 10 Days #40 cap Is patient prescribed a controlled substance at d/c from ED?: No Referrals: Maico Harman MD [Primary Care Provider] - 1-2 days
[2019-09-01 19:48] VITALS: BP 143/97; PULSE 77; TEMP 97.4
== END 2019-09-01 19:49 | disposition home or self-care (01) ==
LOC: EC 18:02
DX: L02.412 Cutaneous abscess of left axilla (principal); L03.112 Cellulitis of left axilla; F41.9 Anxiety disorder, unspecified; F31.9 Bipolar disorder, unspecified; I10 Essential (primary) hypertension; F17.200 Nicotine dependence, unspecified, uncomplicated; Z79.899 Other long term (current) drug therapy; Z91.040 Latex allergy status; Z88.8 Allergy status to other drugs, medicaments and biological substances
CPT/HCPCS: 87070; 87205; 99283; 10060; J2001

== ENCOUNTER 2020-02-18 19:59 | Inpatient (IN) | payer MEDICARE, MEDICAID ==
--- NOTE | 2020-02-18 20:21 | ED ---
General Adult HPI - General Source: patient, EMS Mode of arrival: EMS <Leopoldo Jean - Last Filed: 02/18/20 22:24> <Mainor Tripathi - Last Filed: 02/19/20 04:46> - General Stated complaint: mental health Time Seen by Provider: 02/18/20 20:02 - History of Present Illness Initial comments: 44-year-old female with polysubstance abuse and multiple medical problems p resents to the emergency department for suicide attempt. Patient reports that she is sick of being treated poorly at home by her fianc. States she gets cold she is worthless. He states her children treat her "like crap". Patient states she took a "handful" of 30 mg Cymbalta to kill herself. EMS presents with an empty bottle with a quantity of 30 pills. Patient verbally combative, refusing to answer several questions. States she has absolutely no idea at what time today she could've taken these pills, refuses to give an estimate. States she is sleepy, denies any other symptoms.Patient has no other complaints at this time including shortness of breath, chest pain, abdominal pain, nausea or vomiting, headache, or visual changes. (Leopoldo Jean) - Related Data Home Medications Medication Instructions Recorded Confirmed busPIRone HCL [Buspar] 30 mg PO TID PRN 09/01/19 02/18/20 DULoxetine HCL [Cymbalta] 30 mg PO DAILY 02/18/20 02/18/20 Gabapentin [Neurontin] 300 mg PO TID PRN 02/18/20 02/18/20 Ibuprofen [Motrin Ib] 800 mg PO DAILY PRN 02/18/20 02/18/20 Oxymetazoline 0.05% Nasl Davis 1 spray EA NOSTRIL Q6H PRN 02/18/20 02/18/20 [Afrin 0.05% Nasal Davis] busPIRone HCl [Buspar] 10 mg PO TID 02/18/20 02/18/20 Allergies Allergy/AdvReac Type Severity Reaction Status Date / Time latex Allergy Itching Verified 02/18/20 21:39 lithium AdvReac Vomiting Verified 02/18/20 21:39 pregabalin [From Lyrica] AdvReac Vomiting Verified 02/18/20 21:39 topiramate [From Topamax] AdvReac Abdominal Verified 02/18/20 21:39 Pain Review of Systems ROS Other: All systems not noted in ROS Statement are negative. <Leopoldo Jean - Last Filed: 02/18/20 22:24> ROS Other: All systems not noted in ROS Statement are negative. <Mainor Tripathi - Last Filed: 02/19/20 04:46> ROS Statement: Those systems with pertinent positive or pertinent negative responses have been documented in the HPI. Past Medical History Past Medical History: Asthma, COPD, Fibromyalgia, GERD/Reflux, Hypertension, Musculoskeletal Disorder, Osteoarthritis (OA), Rheumatoid Arthritis (RA) Additional Past Medical History / Comment(s): Neuropathy feet/legs and hands, bulging discs, chronic low back pain, DDD. History of Any Multi-Drug Resistant Organisms: MRSA Date of last positivie culture/infection: 09/01/19 MDRO Source:: [facility] Past Surgical History: Hysterectomy, Orthopedic Surgery, Tubal Ligation Additional Past Surgical History / Comment(s): Right knee arthroscopic surg x3; LEEP procedure, partial hysterectomy 2009/ovaries intact, colonoscopy 2013, Past Anesthesia/Blood Transfusion Reactions: No Reported Reaction Past Psychological History: Anxiety, Bipolar, Depression Smoking Status: Current every day smoker Past Alcohol Use History: Occasional Past Drug Use History: Cocaine, Marijuana, Methamphetamine - Past Family History Mother Family Medical History: Cancer, Hypertension Additional Family Medical History / Comment(s): neuropathy; Mother had Colon Cancer Father Family Medical History: No Reported History Additional Family Medical History / Comment(s): Father is bipolar <Leopoldo Jean - Last Filed: 02/18/20 22:24> General Exam General appearance: alert, other (Crying, angry) Head exam: Present: atraumatic, normocephalic, normal inspection Eye exam: Present: normal appearance, PERRL, EOMI. Absent: scleral icterus, conjunctival injection, periorbital swelling ENT exam: Present: normal exam, mucous membranes moist Neck exam: Present: normal inspection. Absent: tenderness, meningismus, lymphadenopathy Respiratory exam: Present: normal lung sounds bilaterally. Absent: respiratory distress, wheezes, rales, rhonchi, stridor Cardiovascular Exam: Present: regular rate, normal rhythm, normal heart sounds. Absent: systolic murmur, diastolic murmur, rubs, gallop, clicks GI/Abdominal exam: Present: soft, normal bowel sounds. Absent: distended, tenderness, guarding, rebound, rigid Neurological exam: Present: alert <Leopoldo Jean - Last Filed: 02/18/20 22:24> Course Vital Signs 02/18/20 02/18/20 02/18/20 20:08 21:00 22:00 Temperature 97.6 F Pulse Rate 90 85 83 Respiratory 20 20 19 Rate Blood Pressure 126/82 150/81 146/72 O2 Sat by Pulse 96 98 97 Oximetry 02/18/20 02/19/20 02/19/20 23:00 00:00 01:00 Temperature Pulse Rate 87 85 84 Respiratory 20 20 20 Rate Blood Pressure 162/87 155/91 183/118 O2 Sat by Pulse 97 97 Oximetry 02/19/20 02/19/20 02:00 02:55 Temperature Pulse Rate 80 84 Respiratory 20 18 Rate Blood Pressure 167/85 171/92 O2 Sat by Pulse 97 98 Oximetry EKG Findings - EKG Comments: EKG Findings:: Normal sinus rhythm, ventricular rate 69, W[place] interval 146, QTC 435 <Leopoldo Jean - Last Filed: 02/18/20 22:24> Medical Decision Making - Lab Data Result diagrams: 02/18/20 21:08 02/18/20 21:08 <Leopoldo Jean - Last Filed: 02/18/20 22:24> - Lab Data Result diagrams: 02/18/20 21:08 02/18/20 21:08 <Mainor Tripathi - Last Filed: 02/19/20 04:46> - Medical Decision Making Vitals are stable. Patient is alert and oriented. She is well appearing. Poison control was contacted and recommendations were. Out. EKG shows a sinus rhythm without QT prolongation. CBC CMP unremarkable. Magnesium is normal. Urinalysis does not show any evidence of or infection. Patient is positive for methamphetamine. Poison control is requesting a 3 hour EKG at midnight. They're also recommending monitoring for 6-7 hours before clearing patient medically. Patient is petitioned by [facility] for suicide attempt and will be evaluated at that time. Care signed out to Dr. Tripathi at 2300. (Leopoldo Jean) I saw this patient in conjunction with the physician assistant program manager. I performed independent history and physical exam. Agree with case management. I did review the patient's repeat ECG, and the intervals are unchanged. I did see the patient for purposes of following the clinical certification, but the patient is not wanting to discuss the matter further with me as she was just interviewed by EPS. (Mainor Tripathi) - Lab Data Lab Results 02/18/20 02/18/20 02/18/20 Range/Units 21:08 21:08 21:08 WBC 9.7 (3.8-10.6) k/uL RBC 4.98 (3.80-5.40) m/uL Hgb 15.7 (11.4-16.0) gm/dL Hct 45.9 (34.0-46.0) % MCV 92.3 (80.0-100.0) fL MCH 31.6 (25.0-35.0) pg MCHC 34.3 (31.0-37.0) g/dL RDW 13.0 (11.5-15.5) % Plt Count 220 (150-450) k/uL MPV 7.0 Neutrophils % 72 % Lymphocytes % 17 % Monocytes % 6 % Eosinophils % 3 % Basophils % 1 % Neutrophils # 7.0 (1.3-7.7) k/uL Lymphocytes # 1.7 (1.0-4.8) k/uL Monocytes # 0.5 (0-1.0) k/uL Eosinophils # 0.3 (0-0.7) k/uL Basophils # 0.1 (0-0.2) k/uL Sodium (137-145) mmol/L Potassium (3.5-5.1) mmol/L Chloride (98-107) mmol/L Carbon Dioxide (22-30) mmol/L Anion Gap mmol/L BUN (7-17) mg/dL Creatinine (0.52-1.04) mg/dL Est GFR (CKD-EPI)AfAm (>60 ml/min/1.73 sqM) Est GFR (CKD-EPI)NonAf (>60 ml/min/1.73 sqM) Glucose (74-99) mg/dL Calcium (8.4-10.2) mg/dL Magnesium (1.6-2.3) mg/dL Total Bilirubin (0.2-1.3) mg/dL AST (14-36) U/L ALT (4-34) U/L Alkaline Phosphatase (38-126) U/L Total Protein (6.3-8.2) g/dL Albumin (3.5-5.0) g/dL Urine Color Light Yellow Urine Appearance Clear (Clear) Urine pH 6.5 (5.0-8.0) Ur Specific [place] 1.005 (1.001-1.035) Urine Protein Negative (Negative) Urine Glucose (UA) Negative (Negative) Urine Ketones Negative (Negative) Urine Blood Negative (Negative) Urine Nitrite Negative (Negative) Urine Bilirubin Negative (Negative) Urine Urobilinogen <2.0 (<2.0) mg/dL Ur Leukocyte Esterase Moderate H (Negative) Urine RBC 3 (0-5) /hpf Urine WBC 3 (0-5) /hpf Ur Squamous Epith Cells 3 (0-4) /hpf Urine Bacteria Occasional H (None) /hpf Urine HCG, Qual Not Detected (Not Detectd) Salicylates mg/dL Urine Opiates Screen Not Detected (NotDetected) Ur Oxycodone Screen Not Detected (NotDetected) Urine Methadone Screen Not Detected (NotDetected) Ur Propoxyphene Screen Not Detected (NotDetected) Acetaminophen ug/mL Ur Barbiturates Screen Not Detected (NotDetected) U Tricyclic Antidepress Not Detected (NotDetected) Ur Phencyclidine Scrn Not Detected (NotDetected) Ur Amphetamines Screen Detected H (NotDetected) U Methamphetamines Scrn Detected H (NotDetected) U Benzodiazepines Scrn Not Detected (NotDetected) Urine Cocaine Screen Not Detected (NotDetected) U Marijuana (THC) Screen Not Detected (NotDetected) Serum Alcohol mg/dL 02/18/20 Range/Units 21:08 WBC (3.8-10.6) k/uL RBC (3.80-5.40) m/uL Hgb (11.4-16.0) gm/dL Hct (34.0-46.0) % MCV (80.0-100.0) fL MCH (25.0-35.0) pg MCHC (31.0-37.0) g/dL RDW (11.5-15.5) % Plt Count (150-450) k/uL MPV Neutrophils % % Lymphocytes % % Monocytes % % Eosinophils % % Basophils % % Neutrophils # (1.3-7.7) k/uL Lymphocytes # (1.0-4.8) k/uL Monocytes # (0-1.0) k/uL Eosinophils # (0-0.7) k/uL Basophils # (0-0.2) k/uL Sodium 136 L (137-145) mmol/L Potassium 4.4 (3.5-5.1) mmol/L Chloride 105 (98-107) mmol/L Carbon Dioxide 27 (22-30) mmol/L Anion Gap 4 mmol/L BUN 12 (7-17) mg/dL Creatinine 0.61 (0.52-1.04) mg/dL Est GFR (CKD-EPI)AfAm >90 (>60 ml/min/1.73 sqM) Est GFR (CKD-EPI)NonAf >90 (>60 ml/min/1.73 sqM) Glucose 113 H (74-99) mg/dL Calcium 9.2 (8.4-10.2) mg/dL Magnesium 2.1 (1.6-2.3) mg/dL Total Bilirubin 0.4 (0.2-1.3) mg/dL AST 24 (14-36) U/L ALT 22 (4-34) U/L Alkaline Phosphatase 67 (38-126) U/L Total Protein 7.1 (6.3-8.2) g/dL Albumin 3.7 (3.5-5.0) g/dL Urine Color Urine Appearance (Clear) Urine pH (5.0-8.0) Ur Specific [place] (1.001-1.035) Urine Protein (Negative) Urine Glucose (UA) (Negative) Urine Ketones (Negative) Urine Blood (Negative) Urine Nitrite (Negative) Urine Bilirubin (Negative) Urine Urobilinogen (<2.0) mg/dL Ur Leukocyte Esterase (Negative) Urine RBC (0-5) /hpf Urine WBC (0-5) /hpf Ur Squamous Epith Cells (0-4) /hpf Urine Bacteria (None) /hpf Urine HCG, Qual (Not Detectd) Salicylates <1.0 mg/dL Urine Opiates Screen (NotDetected) Ur Oxycodone Screen (NotDetected) Urine Methadone Screen (NotDetected) Ur Propoxyphene Screen (NotDetected) Acetaminophen <10.0 ug/mL Ur Barbiturates Screen (NotDetected) U Tricyclic Antidepress (NotDetected) Ur Phencyclidine Scrn (NotDetected) Ur Amphetamines Screen (NotDetected) U Methamphetamines Scrn (NotDetected) U Benzodiazepines Scrn (NotDetected) Urine Cocaine Screen (NotDetected) U Marijuana (THC) Screen (NotDetected) Serum Alcohol <10 mg/dL Disposition Time of Disposition: 22:25 <Leopoldo Jean - Last Filed: 02/18/20 22:24> <Mainor Tripathi - Last Filed: 02/19/20 04:46> Clinical Impression: Overdose, Attempted suicide Disposition: TRANSFER TO PSYCH HOSP/UNIT Condition: Fair Referrals: None,Stated [Primary Care Provider] - 1-2 days
[2020-02-18 21:32] LABS: Basophils # (A) 0.1 k/uL (0-0.2); Basophils % (A) 1 %; Eosinophils # (A) 0.3 k/uL (0-0.7); Eosinophils % (A) 3 %; HCT 45.9 % (34.0-46.0); HGB 15.7 gm/dL (11.4-16.0); Lymphocytes # (A) 1.7 k/uL (1.0-4.8); Lymphocytes % (A) 17 %; MCH 31.6 pg (25.0-35.0); MCHC 34.3 g/dL (31.0-37.0); MCV 92.3 fL (80.0-100.0); Monocytes # (A) 0.5 k/uL (0-1.0); Monocytes % (A) 6 %; Neutrophils % (A) 72 %; Platelet Count 220 k/uL (150-450); RBC 4.98 m/uL (3.80-5.40); WBC 9.7 k/uL (3.8-10.6)
[2020-02-18 21:40] LABS: Appearance,Urine Clear (Clear); Bacteria,Urine Occasional /hpf; Bilirubin,Urine Negative (Negative); Blood,Urine Negative (Negative); Color,Urine Light Yellow; Glucose,Urine (UA) Negative (Negative); Ketones,Urine Negative (Negative); Leukocyte Esterase,Urine Moderate (Negative); Nitrite,Urine Negative (Negative); PH, Urine 6.5 (5.0-8.0); Protein,Urine Negative (Negative); RBC,Urine 3 /hpf (0-5); Specific Gravity,Urine 1.005 (1.001-1.035); Squamous Epithelial Cell,Urine 3 /hpf (0-4); Urobilinogen,Urine <2.0 mg/dL (<2.0); WBC,Urine 3 /hpf (0-5)
[2020-02-18 21:43] LABS: ALT 22 U/L (4-34); AST 24 U/L (14-36); Acetaminophen <10.0 ug/mL; African American GFR (CKD) >90 (>60 ml/min/1.73 sqM); Albumin 3.7 g/dL (3.5-5.0); Alcohol <10 mg/dL; Alkaline Phosphatase 67 U/L (38-126); Anion Gap 4 mmol/L; Blood Urea Nitrogen 12 mg/dL (7-17); Calcium 9.2 mg/dL (8.4-10.2); Carbon Dioxide 27 mmol/L (22-30); Chloride 105 mmol/L (98-107); Glucose 113 mg/dL (74-99); Magnesium 2.1 mg/dL (1.6-2.3); Non-African American GFR(CKD) >90 (>60 ml/min/1.73 sqM); Potassium 4.4 mmol/L (3.5-5.1); Salicylate <1.0 mg/dL; Sodium 136 mmol/L (137-145); Total Bilirubin 0.4 mg/dL (0.2-1.3); Total Protein 7.1 g/dL (6.3-8.2)
[2020-02-18 21:56] LABS: Amphetamine Screen,Urine Detected (NotDetected); Barbiturate Screen,Urine Not Detected (NotDetected); Benzodiazepines Screen,Urine Not Detected (NotDetected); Cocaine Screen,Urine Not Detected (NotDetected); Methadone Screen, Urine Not Detected (NotDetected); Opiate Screen,Urine Not Detected (NotDetected); Oxycodone Screen, Urine Not Detected (NotDetected); Phencyclidine Screen,Urine Not Detected (NotDetected); Tricyclic Antidepressant,Urine Not Detected (NotDetected); Urn Cannabinoid Scrn Not Detected (NotDetected)
[2020-02-19] MEDS ORDERED: IBUPROFEN 400 MG TAB PO STA (00:41)
[2020-02-19] MEDS ORDERED: LORazepam 1 MG TAB PO STA (00:42)
[2020-02-19] MEDS ORDERED: LORazepam 2 MG/ML INJ IM PRN (05:28)
[2020-02-19] MEDS ORDERED: HALOPERIDOL LACTATE 5 MG/ML 1 ML VIAL IM PRN (05:28)
[2020-02-19] MEDS ORDERED: LORazepam 1 MG TAB PO PRN (05:28)
[2020-02-19] MEDS ORDERED: MAGNESIUM HYDROXIDE 2,400 MG/10 ML CUP PO PRN (05:28)
[2020-02-19] MEDS ORDERED: MAG HYDROX/AL HYDROX/SIMETH 30 ML CUP PO PRN (05:28)
[2020-02-19] MEDS ORDERED: haloperidoL 5 MG TAB PO PRN (05:28)
[2020-02-19] MEDS ORDERED: ACETAMINOPHEN TAB 325 MG TAB PO PRN (05:28)
[2020-02-19] MEDS: NICOTINE 14MG/24HR PATCH TRANSDERM SCH (09:15)
[2020-02-19] MEDS ORDERED: hydrOXYzine pamoate 25 MG CAP PO PRN (13:42)
[2020-02-19] MEDS: busPIRone HCl 10 MG TAB PO SCH ×2 (14:14→21:22)
[2020-02-19] MEDS: lamoTRIgine 25 MG TAB PO SCH ×2 (14:14→21:22)
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
[2020-02-19] MEDS ORDERED: IBUPROFEN 800 MG TAB PO PRN (19:44)
[2020-02-19] MEDS ORDERED: GABAPENTIN 300 MG CAP PO PRN (19:44)
--- NOTE | 2020-02-19 20:13 | P.CONS ---
History of Present Illness - Reason for Consult Consult date: 02/19/20 - History of Present Illness The patient is a 44-year-old female with a PMH of polysubstance abuse, asthma, hypertension, and DJD of spine who presented to the emergency room after an attempted overdose with Cymbalta. The patient had reported depression and suicidal ideation and had reported taking a "handful" of Cymbalta. She was admitted to the mental health unit where she was seen and evaluated earlier today. The patient noted chronic lower back pain for which she takes gabapentin at home but otherwise denied additional complaints. She denied chest discomfort, shortness of breath, fever, chills, cough, nausea, vomiting, abdominal pain, diarrhea. EKG revealed normal sinus rhythm at [address]/T-wave changes noted as reviewed by me. Laboratory evaluation was reviewed and was remarkable for a sodium of 136, glucose of 113, urine toxicology positive for amphetamines and methamphetamines with Covid PCR negative. Review of Systems Pertinent positives and negatives as discussed in HPI, a complete review of systems was performed and all other systems are negative. Past Medical History Past Medical History: Asthma, COPD, Fibromyalgia, GERD/Reflux, Hypertension, Musculoskeletal Disorder, Osteoarthritis (OA), Rheumatoid Arthritis (RA) Additional Past Medical History / Comment(s): Neuropathy feet/legs and hands, bulging discs, chronic low back pain, DDD. History of Any Multi-Drug Resistant Organisms: MRSA Year Discovered:: 09/01/19 MDRO Source:: [facility] Past Surgical History: Hysterectomy, Orthopedic Surgery, Tubal Ligation Additional Past Surgical History / Comment(s): Right knee arthroscopic surg x3; LEEP procedure, partial hysterectomy 2009/ovaries intact, colonoscopy 2013, Past Anesthesia/Blood Transfusion Reactions: No Reported Reaction Past Psychological History: Anxiety, Bipolar, Depression Additional Psychological History / Comment(s): [facility] patient. Past history of substance abuse. single. Did not relate to having children. Does have a pet dog. No travel. The experience. Active tobacco smoker. Denies recreational drug use or alcohol use Smoking Status: Current every day smoker Past Alcohol Use History: Occasional Additional Past Alcohol Use History / Comment(s): Pt. admits to occasional ETOH use. BAT 0. Past Drug Use History: Cocaine, Marijuana, Methamphetamine Additional Drug Use History / Comment(s): Past history of substance abuse. Pt. denies drug use at this time. - Past Family History Mother Family Medical History: Cancer, Hypertension Additional Family Medical History / Comment(s): neuropathy; Mother had Colon Cancer Father Family Medical History: No Reported History Additional Family Medical History / Comment(s): Father is bipolar Medications and Allergies Home Medications Medication Instructions Recorded Confirmed Type busPIRone HCL [Buspar] 30 mg PO TID PRN 09/01/19 02/18/20 History DULoxetine HCL [Cymbalta] 30 mg PO DAILY 02/18/20 02/18/20 History Gabapentin [Neurontin] 300 mg PO TID PRN 02/18/20 02/18/20 History Ibuprofen [Motrin Ib] 800 mg PO DAILY PRN 02/18/20 02/18/20 History Oxymetazoline 0.05% Nasl [place] 1 spray EA NOSTRIL Q6H PRN 02/18/20 02/18/20 History [Afrin 0.05% Nasal [place]] busPIRone HCl [Buspar] 10 mg PO TID 02/18/20 02/18/20 History Allergies Allergy/AdvReac Type Severity Reaction Status Date / Time latex Allergy Itching Verified 02/19/20 07:11 lithium AdvReac Vomiting Verified 02/19/20 07:11 pregabalin [From Lyrica] AdvReac Vomiting Verified 02/19/20 07:11 topiramate [From Topamax] AdvReac Abdominal Verified 02/19/20 07:11 Pain Physical Exam Vitals: Vital Signs Temp Pulse Pulse Resp BP BP Pulse Ox 02/19/20 18:15 97.4 F L 02/19/20 06:00 97.8 F 84 19 164/86 97 02/19/20 05:59 97.8 F 80 18 177/104 02/19/20 05:10 97.7 F 85 19 158/90 98 02/19/20 04:00 83 19 154/84 97 02/19/20 02:55 84 18 171/92 98 02/19/20 02:00 80 20 167/85 97 02/19/20 01:00 84 20 183/118 97 02/19/20 00:00 85 20 155/91 02/18/20 23:00 87 20 162/87 97 02/18/20 22:00 83 19 146/72 97 02/18/20 21:00 85 20 150/81 98 02/18/20 20:08 97.6 F 90 20 126/82 96 Intake and Output 02/19/20 02/19/20 02/19/20 06:59 14:59 22:59 Other: Weight 158.757 kg General: non toxic, no distress, appears at stated age, morbidly obese Derm: no unusual rashes/lesions no unusual ecchymoses, warm, dry Head: atraumatic, normocephalic, symmetric Eyes: EOMI, no lid lag, anicteric sclera, pupils equal round reactive to light ENT: Nose and ears atraumatic, no thrush, no pharyngeal erythema Neck: No thyromegaly, no cervical lymphadenopathy, trachea midline, supple Mouth: no lip lesion, mucus membranes moist Cardiovascular: S1S2 reg, no murmur, positive posterior tibial pulse bilateral, no edema, capillary refill less than 2 seconds Lungs: CTA bilateral, no rhonchi, no rales , no accessory muscle use Abdominal: soft, nontender to palpation, no guarding, no appreciable organomegaly, normal bowel sounds Ext: no gross muscle atrophy, muscle strength 5 out of 5 in all 4 extremities grossly, no contractures, Neuro: CN II-XI grossly intact, light touch intact all 4 extremities, finger to nose within normal limits, Psych: Alert, oriented, appropriate affect Results CBC & Chem 7: 02/18/20 21:08 02/18/20 21:08 Labs: Abnormal Lab Results - Last 24 Hours (Table) 02/18/20 02/18/20 Range/Units 21:08 21:08 Sodium 136 L (137-145) mmol/L Glucose 113 H (74-99) mg/dL Ur Leukocyte Esterase Moderate H (Negative) Urine Bacteria Occasional H (None) /hpf Ur Amphetamines Screen Detected H (NotDetected) U Methamphetamines Scrn Detected H (NotDetected) Assessment and Plan Plan: Polysubstance abuse -Advised on the importance of cessation DJD of the spine -Continue with home gabapentin and Motrin when necessary Depression with suicidal ideation -As per psychiatry Thank you for allowing us to participate in the care of this patient. We will follow peripherally. Do not hesitate to contact us with questions. Someone can be reached from the [facility] [place] hospitalist group at all hours of the day at [phone].
[2020-02-19] MEDS: MELATONIN 3 MG TABLET PO SCH (21:22)
[2020-02-20] MEDS: lamoTRIgine 25 MG TAB PO SCH ×2 (08:55→21:12)
[2020-02-20] MEDS: busPIRone HCl 10 MG TAB PO SCH ×2 (08:55→21:12)
[2020-02-20] MEDS: NICOTINE 14MG/24HR PATCH TRANSDERM SCH (08:55)
--- NOTE | 2020-02-20 09:10 | P.PN ---
Progress Note - Text Progress Note Date: 02/20/20 Interval History: Patient was seen laying in bed this morning and was directable and agreeable to speak with administrative underwriter in the office. Patient continues to appear to be disheveled in appearance have poor hygiene and grooming. She states that she feels about the same as yesterday today. She claims that she is feeling tired and slept most of the evening yesterday however claims that she had poor sleep in her room as she was feeling "hot". She claims that she wants to continue on the melatonin at nighttime. Patient was agreeable to have her Lamictal increased. She states that her mood is continuing to feel mildly depressed however denies any suicidal thoughts today. She claims that she has mild anxiety however states that the BuSpar has been helping. She also claims that she has been talking with her fianc over the phone who told her about his day. She claims that she has been monitoring her skin and denies any rash today. She was agreeable to start to shower daily starting today. At this time patient denies any suicidal or homical ideations, intent or plan. Patient denies any auditory, visual hallucinations and denies any paranoia or delusions. Patient denies any side effects from the medications and has been compliant with meds. Mental Status Exam: General Appearance: Patient appears to be overweight,stated age is alert, difficult to redirect and concrete. Patient appears to have poor hygiene and grooming. disheveled appearance Behavior: Patient is seated without any agitated behavior. Speech: Patient's speech is fluent and nonpressured. Monotone. Mood/Affect: Patient reports their mood is depressed, improving mildly, affect is congruent and constricted. Suicidality/Homicidality: Patient denies having any homicidal ideation intent or plan. Denies any suicidal ideations intent or plan Perceptions: Patient denies any visual hallucinations and denies any auditory hallucinations Though content/process: Rate, poverty of content. Logical. focus on her symptoms. No delusions at this time. Memory and concentration: AOX3, grossly intact for the purposes of this session. Judgment and insight: poor, improving mildly Assessment bipolar disorder, currently depressed cluster B personality traits Cannabis use disorder mild Nicotine dependence Plan: -Patient continues to meet criteria for inpatient psychiatric admission for symptom stabilization and safety. Patient has not signed adult voluntary form and currently awaiting deferral and full court hearing date. Patient has signed medication consent and was placed in patient's chart. -Medications: Increase Lamictal to 25 mg daily at bedtime +50 mg daily for mood stabilization/depression. Continue with BuSpar 10 mg twice a day for anxiety. Continue with melatonin 6 mg daily at bedtime for insomnia. Continue Vistaril 25 mg when necessary for anxiety. -Patient is denying any new rashes at this time and was informed of the potential side effect for a rash from the Lamictal, she verbally understood and agreed. -When necessary Ativan and Haldol for agitation/aggression. -NRT - nicotine patch -SW on board for discharge planning. Encouraged the patient to participate in milieu. Will await deferral and court date.
[2020-02-20 15:08] LABS: Hemoglobin A1C 5.1 % (4.0-6.0)
[2020-02-20] MEDS: MELATONIN 3 MG TABLET PO SCH (21:12)
[2020-02-21] MEDS: busPIRone HCl 10 MG TAB PO SCH ×2 (08:33→20:38)
[2020-02-21] MEDS: lamoTRIgine 25 MG TAB PO SCH ×2 (08:33→20:38)
[2020-02-21] MEDS: NICOTINE 14MG/24HR PATCH TRANSDERM SCH (08:33)
--- NOTE | 2020-02-21 16:26 | PN ---
PROGRESS NOTE DATE OF SERVICE: 02/21/2020 CHIEF COMPLAINT: The patient made a suicide attempt by taking a handful of 30 mg Cymbalta tablets. She has struggled with depression and poor self-esteem. INTERVAL HISTORY: Patient has been doing fair. She had a quiet day yesterday. She prefers to keep to herself. She chooses not to attend groups. She said one time in the past when she was at a group the youth leader discouraged somebody from talking about their feelings. She felt that was antithetical what the patients should be trying to do. Since then, she says she has not attended any groups. She spends a fair amount of time in her room. She naps on and off in the day. She said she slept fairly well last night. Today again she has been mostly in her room. When I reviewed her history she notes that she had not had [facility] followup this last year due to COVID. She said she had been off medications for a stretch of time and had only gotten back on medications about 2 months ago. She also acknowledges that she does not take medications very consistently, mainly because she forgets her medications. She talked about stress that she has had at home with the children of her fiance. She said they are no longer in the house. She said that her daughter is in the house and is generally a support to her. She acknowledges that she struggles with poor self-esteem. When I reviewed medication issues with her, she notes that she has musculoskeletal issues with diagnoses of rheumatoid arthritis, osteoarthritis and fibromyalgia. She says as such she has chronic pain issues, which is her reason for being on Neurontin as well as Motrin. She notes that she has not been receiving those medications regularly since she has been in the hospital, though they are ordered only as p.r.n. She did report that she thinks her psychotropic medications have been helping. She tolerates her psychotropic medications. MENTAL STATUS: Patient gave fairly good eye contact. She was somewhat restless. She answered questions with brief responses. Her thoughts were clear. She was somewhat interactive. Her affect was a little constricted though not significantly so. She smiled and was somewhat interactive. Her mood was reserved. She seemed somewhat distressed. There was no indication of thought disorder. Cognition was clear. ASSESSMENT: I will continue the current diagnosis and treatment plan. I had an extensive discussion with the patient regarding her current circumstances, especially as they relate to issues of her not taking medications consistently as well as her use of abusive substances. I discussed withdrawal issues with the patient. I encouraged the patient to get a medication renan for her phone so she can get reminders about her medications. At this point I will adjust her medications so she takes all her medications at morning and bedtime, which will include BuSpar 10 mg twice a day, Neurontin 600 mg twice a day, Motrin 800 mg twice a day and Lamictal 50 mg in the morning, 25 mg at bedtime. I discussed discharge planning issues with the patient. Given the serious nature of her presentation, I discussed that we need to be cautious about discharge until there are some clear signs of progress. For the patient's part, she does not want to attend groups. She is willing to get re-engaged with [facility]. We will focus on stabilization and discharge planning. ISABEL / NISH: [id number] /
[2020-02-21] MEDS: IBUPROFEN 800 MG TAB PO SCH (20:38)
[2020-02-21] MEDS: GABAPENTIN 300 MG CAP PO SCH (20:38)
[2020-02-21] MEDS: MELATONIN 3 MG TABLET PO SCH (20:40)
[2020-02-22 06:28] VITALS: BP 151/86; PULSE 71; RESP 18; TEMP 97.6
[2020-02-22] MEDS: NICOTINE 14MG/24HR PATCH TRANSDERM SCH (08:22)
[2020-02-22] MEDS: busPIRone HCl 10 MG TAB PO SCH (08:23)
[2020-02-22] MEDS: lamoTRIgine 25 MG TAB PO SCH (08:23)
[2020-02-22] MEDS: GABAPENTIN 300 MG CAP PO SCH (08:23)
[2020-02-22] MEDS: IBUPROFEN 800 MG TAB PO SCH (08:24)
--- NOTE | 2020-02-22 15:02 | DS ---
DISCHARGE SUMMARY DATE OF SERVICE: 02/22/2020. ADMISSION AND DISCHARGE DIAGNOSIS: 1. Bipolar disorder, currently depressed. 2. Cluster B personality traits. 3. Cannabis use disorder. 4. Nicotine dependence. HISTORY OF PRESENTING ILLNESS: The patient is a 44-year-old female, she presented to the ED after a suicide attempt where she had taken a handful of Cymbalta 30 mg tablets. She was in an agitated state when she was in the ED. She described distressed issues relating to her relationships. She talked about struggles with poor self-esteem. She had been off medications in part related to related to Covid and difficulties with followup. She got back on medications about 2 months ago, though said that she took them inconsistently mainly because she would forget to take her medications . She had a history of several hospitalizations in the past. She was admitted for further evaluation. MENTAL STATUS EXAM: The patient had a disheveled appearance. She had normal psychomotor activity. Speech was fluent and non pressured. Mood was depressed. Affect constricted. She was denying suicide thoughts, intent, or plan at the time of the evaluation. There was no indication of thought disorder. Cognition was clear. HOSPITAL COURSE: The patient was admitted for comprehensive medical, psychiatric and psychosocial evaluation. We made efforts to engage the patient in individual and group therapeutic activities. On admission the patient was on a petition for involuntary hospitalization. She was started on Lamictal 25 mg twice a day BuSpar 10 mg twice a day and Vistaril p.r.n. Noted that through most of her hospitalization, the patient isolated herself and spent most of her time in her room. She was cooperative with the care. She noted that she continued to struggle with anxiety, though felt that the BuSpar was helping. She had indicated that she had conversations with family, which seemed to be positive. Her mood improved. She was able to state that she did not have any continued thoughts, intent, or plan regarding suicide. She stated that some of the issues at home had been worked out between her and her fiance, which included that his children who had been and apparently had been in the house will not be in the house. She will be returning to home with the lillye and her daughter. She says she gets support from her mother, which is a positive for her as well. We set up all of her medications so that she would be taking them only twice a day morning and bedtime. She acknowledged that would probably be helpful for her. She was also encouraged to get an renan for her cellphone to be able to also help manage her medications. The patient was agreeable to that as well. CONDITION ON DISCHARGE: The patient was stable. Her mood was improved. She denied any thoughts of harm to self or others. She tolerates her psychotropic medications. RECOMMENDATIONS AND FOLLOW UP: Discharge Medications BuSpar 10 mg twice a day and Lamictal 50 mg in the morning, 25 mg in the evening. In addition, she will be on Neurontin 600 mg twice a day and Motrin 800 mg twice a day. Followup will be clarified with Social Work. Please refer to discharge packet for details. MMODL / IJN: [id number] /
== END 2020-02-22 13:45 | disposition home or self-care (01) | DRG 918 ==
LOC: EC 19:59 → 3MHU 02-19 05:22
PROVIDERS: ADMIT Psychiatry & Neurology Psychiatry; ATTEND Psychiatry & Neurology Psychiatry
DX: T43.212A Poisoning by selective serotonin and norepinephrine reuptake inhibitors, intentional self-harm, initial encounter (principal); F31.30 Bipolar disorder, current episode depressed, mild or moderate severity, unspecified; F12.10 Cannabis abuse, uncomplicated; F17.200 Nicotine dependence, unspecified, uncomplicated; F41.9 Anxiety disorder, unspecified; G89.29 Other chronic pain; I10 Essential (primary) hypertension; J44.9 Chronic obstructive pulmonary disease, unspecified; M06.9 Rheumatoid arthritis, unspecified; M19.90 Unspecified osteoarthritis, unspecified site; M79.7 Fibromyalgia; Z79.899 Other long term (current) drug therapy; Z80.0 Family history of malignant neoplasm of digestive organs; Z82.49 Family history of ischemic heart disease and other diseases of the circulatory system; Z90.711 Acquired absence of uterus with remaining cervical stump; Z20.828 Contact with and (suspected) exposure to other viral communicable diseases
CPT/HCPCS: 36415; 80053; 80061; 80143; 80306; 80320; 81001; 81025; 82075; 83036; 83520; 83735; 84443; 85025; 87635; 93005; 99285

== ENCOUNTER 2021-01-26 12:13 | Emergency (ER) | payer MEDICARE, OTHER ==
[2021-01-26 12:21] VITALS: TEMP 96.9
[2021-01-26] MEDS ORDERED: SODIUM CHLORIDE 0.9% 1,000 ML IV STA (12:36)
[2021-01-26] MEDS ORDERED: KETOROLAC 15 MG/ML 1 ML VIAL IVP STA (12:36)
[2021-01-26] MEDS ORDERED: ONDANSETRON 4 MG/2 ML VIAL IVP STA (12:36)
--- NOTE | 2021-01-26 12:43 | ED ---
General Adult HPI - General Chief complaint: Shortness of Breath Stated complaint: Covid+/BAM Time Seen by Provider: 01/26/21 12:26 Source: patient, RN notes reviewed Mode of arrival: wheelchair Limitations: no limitations - History of Present Illness Initial comments: 45-year-old female presents to the emergency department with complaints of fever, chills, cough, shortness of breath with activity, and persistent nausea. Patient states symptoms began yesterday. Reports attempting to treat symptoms with OTC medications with no improvement. States she has been checking her temperature at home and it has been mildly elevated. States shortness of breath worsens with activity and coughing. Complains of body aches. States she is nauseous, but is able to tolerate food. She is unvaccinated and spends a great deal of time in a public work setting. Denies chest pain, abdominal pain, vomiting, diarrhea, dysuria, or hematuria. - Related Data Home Medications Medication Instructions Recorded Confirmed Oxymetazoline 0.05% Nasl [place] 1 spray EA NOSTRIL Q6H PRN 02/18/20 02/28/20 [Afrin 0.05% Nasal [place]] Albuterol Inhaler [Ventolin Hfa 1 - 2 puff INHALATION RT-QID PRN 02/28/20 02/28/20 Inhaler] Ibuprofen [Motrin] 800 mg PO BID PRN 02/28/20 02/28/20 Melatonin 6 mg PO HS PRN 02/28/20 02/28/20 Omeprazole Magnesium [PriLOSEC OTC] 20 mg PO DAILY PRN 02/28/20 02/28/20 Previous Rx's Medication Instructions Recorded busPIRone HCl [Buspar] 10 mg PO BID #60 tab 02/22/20 lamoTRIgine [LaMICtal] 25 mg PO HS #30 tab 02/22/20 lamoTRIgine [LaMICtal] 50 mg PO DAILY #30 tab 02/22/20 Allergies Allergy/AdvReac Type Severity Reaction Status Date / Time latex Allergy Itching Verified 01/26/21 12:21 lithium AdvReac Vomiting Verified 01/26/21 12:21 pregabalin [From Lyrica] AdvReac Vomiting Verified 01/26/21 12:21 topiramate [From Topamax] AdvReac Abdominal Verified 01/26/21 12:21 Pain Review of Systems ROS Statement: Those systems with pertinent positive or pertinent negative responses have been documented in the HPI. ROS Other: All systems not noted in ROS Statement are negative. Past Medical History Past Medical History: Asthma, COPD, Fibromyalgia, GERD/Reflux, Hypertension, Musculoskeletal Disorder, Osteoarthritis (OA), Rheumatoid Arthritis (RA) Additional Past Medical History / Comment(s): Neuropathy feet/legs and hands, bulging discs, chronic low back pain, DDD. History of Any Multi-Drug Resistant Organisms: MRSA Date of last positivie culture/infection: 09/01/19 MDRO Source:: AXILLA Past Surgical History: Hysterectomy, Orthopedic Surgery, Tubal Ligation Additional Past Surgical History / Comment(s): Right knee arthroscopic surg x3; LEEP procedure, partial hysterectomy 2009/ovaries intact, colonoscopy 2013, Past Anesthesia/Blood Transfusion Reactions: No Reported Reaction Past Psychological History: Anxiety, Bipolar, Depression Smoking Status: Current every day smoker Past Alcohol Use History: None Reported Past Drug Use History: None Reported - Past Family History Mother Family Medical History: Cancer, Hypertension Additional Family Medical History / Comment(s): neuropathy; Mother had Colon Cancer Father Family Medical History: No Reported History Additional Family Medical History / Comment(s): Father is bipolar General Exam Limitations: no limitations (This is a well-developed, well-nourished female in no acute distress. Initial temperature 96.9, pulse 66, respirations 18, blood pressure 153/90, pulse ox 99% on room air) General appearance: alert, in no apparent distress ENT exam: Present: normal exam, normal oropharynx, mucous membranes moist, TM's normal bilaterally Neck exam: Present: normal inspection. Absent: tenderness, meningismus, lymphadenopathy Respiratory exam: Present: normal lung sounds bilaterally, other (No accessory muscle use or increased work of breathing. Patient is able to ambulate to the bathroom without difficulty or shortness of breath.). Absent: respiratory distress, wheezes, rales, rhonchi, stridor Cardiovascular Exam: Present: regular rate, normal rhythm, normal heart sounds. Absent: systolic murmur, diastolic murmur, rubs, gallop, clicks GI/Abdominal exam: Present: soft, normal bowel sounds, other (Patient reports nausea, however is eating a large sandwich at this time.). Absent: distended, tenderness, guarding, rebound, rigid Back exam: Present: normal inspection. Absent: CVA tenderness (R), CVA tenderness (L) Neurological exam: Present: alert, oriented X3, CN II-XII intact Psychiatric exam: Present: normal affect, normal mood Skin exam: Present: warm, dry, intact, normal color. Absent: rash Course Vital Signs 01/26/21 01/26/21 01/26/21 12:19 14:12 15:05 Temperature 96.9 F L Pulse Rate 66 68 71 Respiratory 18 18 20 Rate Blood Pressure 153/90 142/90 146/97 O2 Sat by Pulse 99 99 95 Oximetry - Reevaluation(s) Reevaluation #1: 01/26/21 15:00 Patient ambulates to the bathroom without difficulty. No increased work of breathing or shortness of breath. Medical Decision Making - Medical Decision Making This is a 45-year-old female with a history of asthma and is a current smoker who presents to the emergency department for evaluation of upper respiratory infection symptoms. Upon exam, patient is well-appearing and is in no acute dis tress. Patient is eating a very large sandwich during physical exam while complaining of persistent nausea. States she has had a fever at home but is afebrile here. Patient is not tachycardic, nor is she tachypneic. SpO2 is 95- 100% on room air. Lung sounds are clear to auscultation. Chest x-ray is unremarkable. Laboratory studies are within normal limits. COVID test was negative. EKG shows normal sinus rhythm with no ectopy. Patient was unable to provide a urine sample. Patient will be discharged home to follow up with her primary care provider for a recheck. Instructed to continue using her inhaler and encouraged to quit smoking. Return parameters were discussed in detail. Patient verbalizes understanding and agrees with this plan. Care was discussed with my attending Dr. Coyne. - Lab Data Result diagrams: 01/26/21 12:41 01/26/21 12:41 Lab Results 01/26/21 01/26/21 01/26/21 Range/Units 12:41 12:41 12:41 WBC 8.4 (3.8-10.6) k/uL RBC 4.99 (3.80-5.40) m/uL Hgb 15.8 (11.4-16.0) gm/dL Hct 48.1 H (34.0-46.0) % MCV 96.4 (80.0-100.0) fL MCH 31.6 (25.0-35.0) pg MCHC 32.8 (31.0-37.0) g/dL RDW 14.3 (11.5-15.5) % Plt Count 205 (150-450) k/uL MPV 7.7 Neutrophils % 66 % Lymphocytes % 23 % Monocytes % 5 % Eosinophils % 3 % Basophils % 1 % Neutrophils # 5.5 (1.3-7.7) k/uL Lymphocytes # 1.9 (1.0-4.8) k/uL Monocytes # 0.4 (0-1.0) k/uL Eosinophils # 0.3 (0-0.7) k/uL Basophils # 0.1 (0-0.2) k/uL Sodium 137 (137-145) mmol/L Potassium 4.1 (3.5-5.1) mmol/L Chloride 104 (98-107) mmol/L Carbon Dioxide 22 (22-30) mmol/L Anion Gap 11 mmol/L BUN 11 (7-17) mg/dL Creatinine 0.64 (0.52-1.04) mg/dL Est GFR (CKD-EPI)AfAm >90 (>60 ml/min/1.73 sqM) Est GFR (CKD-EPI)NonAf >90 (>60 ml/min/1.73 sqM) Glucose 121 H (74-99) mg/dL Calcium 8.8 (8.4-10.2) mg/dL Coronavirus (PCR) Not Detected (Not Detectd) - EKG Data EKG shows normal: sinus rhythm Rate: normal EKG Comments: EKG was obtained at 12:30 and shows normal sinus rhythm. Ventricular rate 70, LA interval 156, QRS duration 88, QT/QTc 414/447. No ST elevation or depression. - Radiology Data Radiology results: report reviewed, image reviewed Two-view chest x-ray was obtained. Report was reviewed in its entirety. Impression per Dr. Cosme is no active cardiopulmonary disease. No change. Disposition Clinical Impression: Viral illness Disposition: HOME SELF-CARE Condition: Stable Instructions (If sedation given, give patient instructions): Viral Syndrome (ED) Additional Instructions: Increase fluids. Use your inhaler as prescribed. Follow up with your PCP for a recheck. Return to the Emergency Department with any new, worsening, or concerning symptoms. Is patient prescribed a controlled substance at d/c from ED?: No Referrals: None,Stated [Primary Care Provider] - 1-2 days Time of Disposition: 16:26
[2021-01-26 13:20] LABS: Basophils # (A) 0.1 k/uL (0-0.2); Basophils % (A) 1 %; Eosinophils # (A) 0.3 k/uL (0-0.7); Eosinophils % (A) 3 %; HCT 48.1 % (34.0-46.0); HGB 15.8 gm/dL (11.4-16.0); Lymphocytes # (A) 1.9 k/uL (1.0-4.8); Lymphocytes % (A) 23 %; MCH 31.6 pg (25.0-35.0); MCHC 32.8 g/dL (31.0-37.0); MCV 96.4 fL (80.0-100.0); Mean Platelet Volume 7.7; Monocytes # (A) 0.4 k/uL (0-1.0); Monocytes % (A) 5 %; Neutrophils # (A) 5.5 k/uL (1.3-7.7); Neutrophils % (A) 66 %; Platelet Count 205 k/uL (150-450); RBC 4.99 m/uL (3.80-5.40); RDW 14.3 % (11.5-15.5); WBC 8.4 k/uL (3.8-10.6)
[2021-01-26 13:36] LABS: African American GFR (CKD) >90 (>60 ml/min/1.73 sqM); Anion Gap 11 mmol/L; Blood Urea Nitrogen 11 mg/dL (7-17); Calcium 8.8 mg/dL (8.4-10.2); Carbon Dioxide 22 mmol/L (22-30); Chloride 104 mmol/L (98-107); Glucose 121 mg/dL (74-99); Non-African American GFR(CKD) >90 (>60 ml/min/1.73 sqM); Potassium 4.1 mmol/L (3.5-5.1); Sodium 137 mmol/L (137-145)
[2021-01-26 15:08] VITALS: BP 146/97; PULSE 71; RESP 20
--- NOTE | 2021-01-26 15:29 | XR ---
EXAMINATION TYPE: XR chest 2V DATE OF EXAM: 01/26/2021 COMPARISON: 05/26/2018 HISTORY: Cough. Short of breath TECHNIQUE: 2 views FINDINGS: There is no heart failure nor confluent pneumonic infiltrate. Costophrenic angles are clear . There are no hilar masses. Bony thorax is intact. IMPRESSION: No active cardiopulmonary disease. No change.
== END 2021-01-26 16:40 | disposition home or self-care (01) ==
LOC: EC 12:13
DX: B34.9 Viral infection, unspecified (principal); M79.7 Fibromyalgia; K21.9 Gastro-esophageal reflux disease without esophagitis; I10 Essential (primary) hypertension; M19.90 Unspecified osteoarthritis, unspecified site; F41.9 Anxiety disorder, unspecified; F31.9 Bipolar disorder, unspecified; F17.200 Nicotine dependence, unspecified, uncomplicated; Z91.040 Latex allergy status; J45.909 Unspecified asthma, uncomplicated; Z90.710 Acquired absence of both cervix and uterus; Z98.51 Tubal ligation status; Z20.822 Contact with and (suspected) exposure to COVID-19
CPT/HCPCS: 99285; 96374; 96375; 36415; 93005; 80048; 85025; 87635; 71046; J2405; J1885

== ENCOUNTER 2021-05-04 19:05 | Inpatient (IN) | payer MEDICARE, OTHER ==
[2021-05-04] MEDS ORDERED: TETANUS-DIPHTHERIA TOX (PF) 0.5 ML VIAL IM ONE (19:58)
[2021-05-04] MEDS ORDERED: MORPHINE SULFATE 4 MG/ML SYRINGE IV STA (19:58)
[2021-05-04] MEDS ORDERED: VANCOMYCIN IV PER PHARMACY 1 EACH MISC MISCELLANE PRN (20:00)
[2021-05-04] MEDS ORDERED: SODIUM CHLORIDE 0.9% 500 ML 500 ML IV STA (20:00)
[2021-05-04] MEDS ORDERED: VANCOMYCIN 2,250 MG in SODIUM CHLORIDE 0.9% 500 ML 500 ML IVPB STA (20:09)
--- NOTE | 2021-05-04 20:45 | XR ---
EXAMINATION TYPE: XR tibia fibula RT DATE OF EXAM: 05/04/2021 8:37 PM INDICATION: Patient age:Female; 45 years old; Reason for study: overlying cellulitis, eval for osteomyelitis; COMPARISON: None TECHNIQUE: The right tibia/fibula was examined in AP and lateral projections. FINDINGS: No evidence of any acute osseous pathology, joint dislocation, or soft tissue swelling is n oted. Plantar calcaneal spur is present. There is a prominent posterior process of the talus. No eros ion of the bones identified IMPRESSION: . 1. No evidence of osseous erosion to suggest osteomyelitis. 2. No evidence of acute fracture.
--- NOTE | 2021-05-04 21:16 | ED ---
General Adult HPI - General Chief complaint: Skin/Abscess/Foreign Body Stated complaint: RT Leg Swelling Time Seen by Provider: 05/04/21 19:45 Source: patient, RN notes reviewed, old records reviewed Mode of arrival: wheelchair - History of Present Illness Initial comments: Patient is a 45-year-old female with past medical history remarkable for asthma, COPD, hypertension, chronic bilateral lymphedema, who presents emergency Department clinic worsening concern for right leg cellulitis. This patient has chronic ulcers located over the anterior right leg. Patient states that she just finished a course of Keflex, but states that she noticed additional spots of possible infection as well as worsening erythema and pain around the site. Denies any discharge. Presents emergency department over concern for worsening infection. Denies any fevers, chills, sick contacts. Denies any nausea or vomiting. Denies abdominal pain, chest pain, shortness of breath. States she i s able to ambulate. Is concerned for possible worsening leg infection. - Related Data Home Medications Medication Instructions Recorded Confirmed Cariprazine HCl [Vraylar] 3 mg PO DAILY 05/04/21 05/04/21 DULoxetine HCL [Cymbalta] 60 mg PO BID 05/04/21 05/04/21 Furosemide [Lasix] 20 mg PO DAILY 05/04/21 05/04/21 Gabapentin 800 mg PO TID 05/04/21 05/04/21 Potassium Chloride ER [K-Dur 10] 10 meq PO DAILY 05/04/21 05/04/21 busPIRone HCL [Buspar] 30 mg PO TID 05/04/21 05/04/21 cloNIDine HCL [Catapres] 0.1 mg PO BID 05/04/21 05/04/21 Allergies Allergy/AdvReac Type Severity Reaction Status Date / Time latex Allergy Itching Verified 05/04/21 19:54 lithium AdvReac Vomiting Verified 05/04/21 19:54 pregabalin [From Lyrica] AdvReac Vomiting Verified 05/04/21 19:54 topiramate [From Topamax] AdvReac Abdominal Verified 05/04/21 19:54 Pain Review of Systems ROS Statement: Those systems with pertinent positive or pertinent negative responses have been documented in the HPI. Review of Systems: CONST: Denies fever EYES: Denies blurry vision ENT: Denies nasal congestion C/V: Denies Chest pain RESP: Denies shortness of breath GI: Denies abdominal pain : Denies dysuria SKIN: Endorses cellulitis of her right leg MSK: Denies joint pain. NEURO: Denies headache ROS Other: All systems not noted in ROS Statement are negative. Past Medical History Past Medical History: Asthma, COPD, Fibromyalgia, GERD/Reflux, Hypertension, Musculoskeletal Disorder, Osteoarthritis (OA), Rheumatoid Arthritis (RA) Additional Past Medical History / Comment(s): Neuropathy feet/legs and hands, bulging discs, chronic low back pain, DDD. History of Any Multi-Drug Resistant Organisms: MRSA Date of last positivie culture/infection: 09/01/19 MDRO Source:: AXILLA Past Surgical History: Hysterectomy, Orthopedic Surgery, Tubal Ligation Additional Past Surgical History / Comment(s): Right knee arthroscopic surg x3; LEEP procedure, partial hysterectomy 2009/ovaries intact, colonoscopy 2013, Past Anesthesia/Blood Transfusion Reactions: No Reported Reaction Past Psychological History: Anxiety, Bipolar, Depression Smoking Status: Current every day smoker Past Alcohol Use History: None Reported Past Drug Use History: None Reported - Past Family History Mother Family Medical History: Cancer, Hypertension Additional Family Medical History / Comment(s): neuropathy; Mother had Colon Cancer Father Family Medical History: No Reported History Additional Family Medical History / Comment(s): Father is bipolar General Exam - General Exam Comments Initial Comments: General: Appears in mild distress secondary to right lower extremity pain. HEAD: Normal with no signs of head trauma. EYES: PERRLA, EOMI, conjunctiva normal, no discharge. ENT: Hearing grossly intact, normal oropharynx. RESPIRATORY: Clear breath sounds bilaterally. No wheezes, rales, or rhonchi. C/V: Regular rate and rhythm. S1 and S2 auscultated, significant peripheral edema that is chronic., peripheral pulses 2+ and intact throughout ABD: Abd is soft, nontender, nondistended EXT: Normal range of motion, no obvious deformity SKIN: Patient has 3 open sores. No purulent discharge. Surrounding erythema is present. No scabbing. No bleeding. No fluctuance. No induration. Neurovascularly intact distal and proximal. NEURO: Alert and oriented 4. Course Vital Signs 05/04/21 19:40 Temperature 97.8 F Pulse Rate 74 Respiratory 18 Rate Blood Pressure 174/98 O2 Sat by Pulse 100 Oximetry Medical Decision Making - Medical Decision Making Based on the patient's presentation and physical exam, does appear she is experiencing worsening sialitis symptoms. She does have a history of chronic lower extremity edema likely secondary to lymphedema. She has worsening sores over the right anterior leg with erythema. She just finished a course of antibiotics but states that these have been worse. Therefore we will obtain basic laboratory studies as well as blood cultures and wound cultures. She will be started on IV antibiotics. She'll be admitted for failed outpatient treatment of these wounds. She was in agreement this plan. Patient's imaging revealed no signs of osteomyelitis. Laboratory studies are remarkable for a normal lactic acid. There are otherwise unremarkable. Cultures were obtained and sent. Patient was given itchy. Patient was started on vancomycin. On reevaluation, patient is feeling improved following pain medications. I discussed results of the laboratory studies and imaging with her. Patient will be admitted to observation for continued IV antibiotics patient was in agreement this plan. I spoke with Dr. Celestin of [facility], as the patient is a Dr. Bhat patient who is being admitted to observation. He was in agreement with the plan accepted the patient. Patient was admitted in stable condition. - Lab Data Result diagrams: 05/04/21 21:08 05/04/21 21:08 Lab Results 05/04/21 05/04/21 05/04/21 Range/Units 21:08 21:08 21:08 WBC 7.4 (3.8-10.6) k/uL RBC 4.73 (3.80-5.40) m/uL Hgb 14.7 (11.4-16.0) gm/dL Hct 45.1 (34.0-46.0) % MCV 95.3 (80.0-100.0) fL MCH 31.1 (25.0-35.0) pg MCHC 32.6 (31.0-37.0) g/dL RDW 13.9 (11.5-15.5) % Plt Count 228 (150-450) k/uL MPV 7.5 Neutrophils % 54 % Lymphocytes % 31 % Monocytes % 7 % Eosinophils % 4 % Basophils % 1 % Neutrophils # 4.0 (1.3-7.7) k/uL Lymphocytes # 2.3 (1.0-4.8) k/uL Monocytes # 0.5 (0-1.0) k/uL Eosinophils # 0.3 (0-0.7) k/uL Basophils # 0.1 (0-0.2) k/uL Sodium 137 (137-145) mmol/L Potassium 4.0 (3.5-5.1) mmol/L Chloride 104 (98-107) mmol/L Carbon Dioxide 25 (22-30) mmol/L Anion Gap 8 mmol/L BUN 10 (7-17) mg/dL Creatinine 0.71 (0.52-1.04) mg/dL Est GFR (CKD-EPI)AfAm >90 (>60 ml/min/1.73 sqM) Est GFR (CKD-EPI)NonAf >90 (>60 ml/min/1.73 sqM) Glucose 83 (74-99) mg/dL Plasma Lactic Acid Alessio 1.1 (0.7-2.0) mmol/L Calcium 9.1 (8.4-10.2) mg/dL Total Bilirubin 0.5 (0.2-1.3) mg/dL AST 23 (14-36) U/L ALT 21 (4-34) U/L Alkaline Phosphatase 71 (38-126) U/L Total Protein 7.3 (6.3-8.2) g/dL Albumin 3.9 (3.5-5.0) g/dL Disposition Clinical Impression: Cellulitis of right leg, Cellulitis Disposition: ADMITTED IP TO THIS [facility] Condition: Stable
[2021-05-04 21:37] LABS: Basophils # (A) 0.1 k/uL (0-0.2); Basophils % (A) 1 %; Eosinophils # (A) 0.3 k/uL (0-0.7); Eosinophils % (A) 4 %; HCT 45.1 % (34.0-46.0); HGB 14.7 gm/dL (11.4-16.0); Lymphocytes # (A) 2.3 k/uL (1.0-4.8); Lymphocytes % (A) 31 %; MCH 31.1 pg (25.0-35.0); MCHC 32.6 g/dL (31.0-37.0); MCV 95.3 fL (80.0-100.0); Mean Platelet Volume 7.5; Monocytes # (A) 0.5 k/uL (0-1.0); Monocytes % (A) 7 %; Neutrophils % (A) 54 %; Platelet Count 228 k/uL (150-450); RBC 4.73 m/uL (3.80-5.40); RDW 13.9 % (11.5-15.5); WBC 7.4 k/uL (3.8-10.6)
[2021-05-04 21:43] LABS: ALT 21 U/L (4-34); AST 23 U/L (14-36); African American GFR (CKD) >90 (>60 ml/min/1.73 sqM); Albumin 3.9 g/dL (3.5-5.0); Alkaline Phosphatase 71 U/L (38-126); Anion Gap 8 mmol/L; Blood Urea Nitrogen 10 mg/dL (7-17); Calcium 9.1 mg/dL (8.4-10.2); Carbon Dioxide 25 mmol/L (22-30); Chloride 104 mmol/L (98-107); Glucose 83 mg/dL (74-99); Non-African American GFR(CKD) >90 (>60 ml/min/1.73 sqM); Sodium 137 mmol/L (137-145); Total Bilirubin 0.5 mg/dL (0.2-1.3); Total Protein 7.3 g/dL (6.3-8.2)
[2021-05-04] MEDS ORDERED: NALOXONE 0.4 MG/ML 1 ML VIAL IV PRN (22:07)
[2021-05-05] MEDS: HEPARIN SODIUM,PORCINE/PF 5,000 UNIT/0.5 ML SYRINGE SQ SCH ×4 (00:13→21:57)
[2021-05-05] MEDS: MORPHINE SULFATE 4 MG/ML SYRINGE IV PRN ×3 (01:34→12:29)
--- NOTE | 2021-05-05 02:47 | P.HPIM ---
History of Present Illness H&P Date: 05/04/21 Chief Complaint: right leg cellulitis 45 year old female with morbid obesity , chronic lymphedema, COPD patient comes in due to recurrent and worsening right leg wound , she recently finished a course of Keflex, however, not much improvement and now noticed worsening erythema and tenderness. she also noticed a spot or two , which was oozing yellowish discharge. worsening pain and swelling. for which she decided to come in for evaluation , she denies any fever, chills, or recent injury to the leg, nausea vomiting, chest pain or trouble breathing. in the ED , blood work was unremarkable , xrays no acute pathology Review of Systems Pertinent positives as noted in HPI. All other systems were reviewed and are negative Past Medical History Past Medical History: Asthma, COPD, Fibromyalgia, GERD/Reflux, Hypertension, Musculoskeletal Disorder, Osteoarthritis (OA), Rheumatoid Arthritis (RA) Additional Past Medical History / Comment(s): Neuropathy feet/legs and hands, bu lging discs, chronic low back pain, DDD. History of Any Multi-Drug Resistant Organisms: MRSA Date of last positivie culture/infection: 09/01/19 MDRO Source:: AXILLA Past Surgical History: Hysterectomy, Orthopedic Surgery, Tubal Ligation Additional Past Surgical History / Comment(s): Right knee arthroscopic surg x3; LEEP procedure, partial hysterectomy 2009/ovaries intact, colonoscopy 2013, Past Anesthesia/Blood Transfusion Reactions: No Reported Reaction Past Psychological History: Anxiety, Bipolar, Depression Smoking Status: Current every day smoker Past Alcohol Use History: None Reported Past Drug Use History: None Reported - Past Family History Mother Family Medical History: Cancer, Hypertension Additional Family Medical History / Comment(s): neuropathy; Mother had Colon Cancer Father Family Medical History: No Reported History Additional Family Medical History / Comment(s): Father is bipolar Medications and Allergies Home Medications Medication Instructions Recorded Confirmed Type Cariprazine HCl [Vraylar] 3 mg PO DAILY 05/04/21 05/04/21 History DULoxetine HCL [Cymbalta] 60 mg PO BID 05/04/21 05/04/21 History Furosemide [Lasix] 20 mg PO DAILY 05/04/21 05/04/21 History Gabapentin 800 mg PO TID 05/04/21 05/04/21 History Potassium Chloride ER [K-Dur 10] 10 meq PO DAILY 05/04/21 05/04/21 History busPIRone HCL [Buspar] 30 mg PO TID 05/04/21 05/04/21 History cloNIDine HCL [Catapres] 0.1 mg PO BID 05/04/21 05/04/21 History Allergies Allergy/AdvReac Type Severity Reaction Status Date / Time latex Allergy Itching Verified 05/04/21 19:54 lithium AdvReac Vomiting Verified 05/04/21 19:54 pregabalin [From Lyrica] AdvReac Vomiting Verified 05/04/21 19:54 topiramate [From Topamax] AdvReac Abdominal Verified 05/04/21 19:54 Pain Physical Exam Vitals: Vital Signs Temp Pulse Resp BP Pulse Ox 05/04/21 22:00 79 18 154/84 95 05/04/21 19:40 97.8 F 74 18 174/98 100 Intake and Output 05/04/21 05/04/21 05/05/21 14:59 22:59 06:59 Other: Weight 149.685 kg Constitutional: No acute distress, conversant, pleasant,morbidly obese Eyes: Anicteric sclerae, moist conjunctiva, Pupils equal round reactive to light ENMT: NC/AT Oropharynx clear, no erythema, or exudates Neck: Supple, no masses, or JVD No carotid bruits No thyromegaly Lungs: Clear to auscultation Clear to percussion Normal respiratory effort, no accessory muscle use Cardiovascular: Heart regular in rate and rhythm, No murmurs, gallops, or rubs non pitting peripheral edema bilaterally Abdominal: Soft Nontender, no guarding, rebound or rigidity Abdomen moving with respiration Normoactive bowel sounds obese limiting exam Skin: superficial wound over the right anterior leg with yellowish drainage surrounded by erythema warm to the touch and tender to palpation Extremities: No digital cyanosis No clubbing Pedal pulses not palpable bilaterally due to pedal edema , capillary refill immediate Radial pulses intact and symmetrical No calf tenderness Psychiatric: Alert and oriented to person, place and time Appropriate affect fair judgement Neuro Muscles Strength 4/5 in all 4 extremities Sensation to light touch grossly present throughout Cranial nerves II-XII grossly intact No focal sensory deficits Lymphatics: no palpable cervical or supraclavicular , or inguinal lymph nodes Results CBC & Chem 7: 05/04/21 21:08 05/04/21 21:08 Assessment and Plan Assessment: cellulitis right leg , failed outpatient therapy follow up cultures vancomycin pain control with opioids elevate leg blood work unremarkable vital signs stable , no fever chronic conditions hypertension , resume home med morbid obesity full code hepairn sc tid for dvt ppx anticipated length of stay < 2 midnights
[2021-05-05] MEDS: cloNIDine HCL 0.1 MG TAB PO SCH ×2 (07:32→21:57)
[2021-05-05 07:33] LABS: Basophils # (A) 0.1 k/uL (0-0.2); Basophils % (A) 1 %; Eosinophils # (A) 0.4 k/uL (0-0.7); Eosinophils % (A) 5 %; HCT 45.6 % (34.0-46.0); Hypochromasia Slight; Lymphocytes # (A) 2.2 k/uL (1.0-4.8); Lymphocytes % (A) 30 %; MCH 30.1 pg (25.0-35.0); MCHC 30.7 g/dL (31.0-37.0); MCV 97.8 fL (80.0-100.0); Mean Platelet Volume 8.2; Monocytes # (A) 0.6 k/uL (0-1.0); Monocytes % (A) 8 %; Neutrophils % (A) 54 %; Platelet Count 197 k/uL (150-450); RBC 4.66 m/uL (3.80-5.40); RDW 13.4 % (11.5-15.5); WBC 7.4 k/uL (3.8-10.6)
[2021-05-05] MEDS: DULoxetine HCL 60 MG CAPSULE.DR PO SCH ×2 (07:33→21:57)
[2021-05-05] MEDS: GABAPENTIN 400 MG CAP PO SCH ×3 (07:33→21:57)
[2021-05-05] MEDS: busPIRone HCl 10 MG TAB PO SCH ×3 (07:33→21:57)
[2021-05-05 07:48] LABS: ALT 18 U/L (4-34); AST 21 U/L (14-36); African American GFR (CKD) >90 (>60 ml/min/1.73 sqM); Albumin 3.2 g/dL (3.5-5.0); Alkaline Phosphatase 57 U/L (38-126); Anion Gap 4 mmol/L; Blood Urea Nitrogen 10 mg/dL (7-17); Calcium 8.3 mg/dL (8.4-10.2); Carbon Dioxide 23 mmol/L (22-30); Chloride 109 mmol/L (98-107); Glucose 124 mg/dL (74-99); Non-African American GFR(CKD) >90 (>60 ml/min/1.73 sqM); Potassium 4.2 mmol/L (3.5-5.1); Sodium 136 mmol/L (137-145); Total Bilirubin 0.5 mg/dL (0.2-1.3); Total Protein 6.4 g/dL (6.3-8.2)
[2021-05-05] MEDS: VANCOMYCIN 2,250 MG in SODIUM CHLORIDE 0.9% 500 ML 500 ML IVPB SCH ×2 (08:53→21:56)
--- NOTE | 2021-05-05 19:14 | P.PN ---
Subjective Progress Note Date: 05/05/21 Hospital course: Patient is a 45-year-old female with a past medical history of morbid obesity, chronic lymphedema, and COPD. Patient presented to the emergency department from 05/04/21 secondary to recurrent and worsening right leg wound status post completion of antibiotic course with Keflex. patient reports increased erythema and tendernessalong with noticing 2 areas in which she reports losing yellowish discharge. Patient denies being seen by wound care clinic. Patient reports completing 10 day course of Keflex approximately 4 days ago. Patient denies having any fever, chills, diaphoresis, or any other complaints at this time. In the emergency department patient was seen and fully evaluated. CBC and CMP were unremarkable. Patient was started on IV antibiotics of vancomycin admitted under our services. Physical exam: Vital signs reviewed and stable. General: Nontoxic, no distress and appears stated age. morbidly obese. Derm: Skin warm and dry, normal coloration for ethnicity. Head: Atraumatic, normocephalic and symmetric. Eyes: EOMs intact, no lid lag, and anicteric sclera Mouth: no lip lesions, mucus membranes moist Cardiovascular: regular rate and rhythm with normal S1S2, no murmur, positive posterior tibial pulses bilaterally, and cap refill < 2 seconds. Lungs: Respirations even, regular, and unlabored on room air. Lungs CTA bilaterally, no rhonchi, no rales, no wheezing, and no accessory muscle usage. Abdominal: soft, nontender to palpation, no guarding, no appreciable organomegaly Ext: ROM intact. No gross muscle atrophy, no edema, no contractures Neuro: Speech clear, face symmetrical and CN II-XII grossly intact with no noted focal neuro deficits Psych: Alert and oriented to person, place, time, and situation. Appropriate and pleasant affect. Assessment and Plan of Care: Cellulitis right lower extremity, failed outpatient treatment Chronic lymphedema bilateral lower extremities Follow-up on wound cultures Vancomycin Symptomatic care and pain management Recommend following up outpatient for lymphedema therapy upon discharge CODE STATUS: full code DVT prophylaxis: Heparin Discussed with: patient and RN Anticipated discharge date: tomorrow Anticipated discharge place: home A total of 32 minutes was spent on the care of this complex patient more than 50% of the time was spent in counseling and care coordination. Perry Mejía NP rendered care for this patient independently, reviewed the findings and plan as documented in the note above. I did not physically speak with or examine the patient on this date. Objective - Vital Signs Vital signs: Vital Signs Temp 97.7 F 05/05/21 06:58 Pulse 83 05/05/21 06:58 Resp 18 05/05/21 06:58 BP 149/73 05/05/21 06:58 Pulse Ox 98 05/05/21 06:58 Intake & Output 05/04/21 05/05/21 05/05/21 18:59 06:59 18:59 Weight 149.685 kg Other: # Voids 1 - Labs CBC & Chem 7: 05/05/21 06:54 05/05/21 06:54 Labs: Abnormal Lab Results - Last 24 Hours (Table) 05/05/21 05/05/21 Range/Units 06:54 06:54 MCHC 30.7 L (31.0-37.0) g/dL Sodium 136 L (137-145) mmol/L Chloride 109 H (98-107) mmol/L Glucose 124 H (74-99) mg/dL Calcium 8.3 L (8.4-10.2) mg/dL Albumin 3.2 L (3.5-5.0) g/dL
[2021-05-05] MEDS ORDERED: HYDROcodone/APAP 5-325MG 1 EACH TAB PO PRN (21:39)
[2021-05-06 09:34] LABS: HCT 45.6 % (37.2-46.3); HGB 14.3 g/dL (12.0-15.0); MCHC 31.4 g/dL (32.0-37.0); MCV 95.8 fL (80.0-97.0); Mean Platelet Volume 9.9 fL (9.5-12.2); NRBC Per 100 WBC 0 /100 WBCS (0.0-0.0); Platelet Count 194 X 10*3/uL (140-440); RBC 4.76 X 10*6/uL (4.10-5.20); RDW 13.6 % (11.5-14.5)
[2021-05-06] MEDS: GABAPENTIN 400 MG CAP PO SCH ×3 (09:40→22:32)
[2021-05-06] MEDS: VANCOMYCIN 2,250 MG in SODIUM CHLORIDE 0.9% 500 ML 500 ML IVPB SCH ×2 (09:40→21:57)
[2021-05-06] MEDS: busPIRone HCl 10 MG TAB PO SCH ×3 (09:41→22:32)
[2021-05-06] MEDS: DULoxetine HCL 60 MG CAPSULE.DR PO SCH ×2 (09:41→22:32)
[2021-05-06] MEDS: cloNIDine HCL 0.1 MG TAB PO SCH ×2 (09:41→22:32)
[2021-05-06] MEDS: HEPARIN SODIUM,PORCINE/PF 5,000 UNIT/0.5 ML SYRINGE SQ SCH ×3 (09:41→21:57)
--- NOTE | 2021-05-06 14:14 | P.PN ---
Subjective Progress Note Date: 05/06/21 Hospital course: Patient is a 45-year-old female with a past medical history of morbid obesity, chronic lymphedema, and COPD. Patient presented to the emergency department from 05/04/21 secondary to recurrent and worsening right leg wound status post completion of antibiotic course with Keflex. patient reports increased erythema and tendernessalong with noticing 2 areas in which she reports losing yellowish discharge. Patient denies being seen by wound care clinic. Patient reports completing 10 day course of Keflex approximately 4 days ago. Patient denies having any fever, chills, diaphoresis, or any other complaints at this time. In the emergency department patient was seen and fully evaluated. CBC and CMP were unremarkable. Patient was started on IV antibiotics of vancomycin admitted under our services. Physical exam: Patient seen and fully evaluated at the bedside this morning. She denies having any new complaints. She reports feeling sleepy and weak otherwise denies having any complaints at this time. Pro-calcitonin negative at 0.02, however preliminary wound culture result showing presumptive MRSA Blood cultures negative to date. Vital signs reviewed and stable. General: Nontoxic, no distress and appears stated age. morbidly obese. Derm: Skin warm and dry, normal coloration for ethnicity. Head: Atraumatic, normocephalic and symmetric. Eyes: EOMs intact, no lid lag, and anicteric sclera Mouth: no lip lesions, mucus membranes moist Cardiovascular: regular rate and rhythm with normal S1S2, no murmur, positive posterior tibial pulses bilaterally, and cap refill < 2 seconds. Lungs: Respirations even, regular, and unlabored on room air. Lungs CTA bilaterally, no rhonchi, no rales, no wheezing, and no accessory muscle usage. Abdominal: soft, nontender to palpation, no guarding, no appreciable organomegaly Ext: ROM intact. No gross muscle atrophy, no edema, no contractures Neuro: Speech clear, face symmetrical and CN II-XII grossly intact with no noted focal neuro deficits Psych: Alert and oriented to person, place, time, and situation. Appropriate and pleasant affect. Assessment and Plan of Care: Cellulitis right lower extremity, failed outpatient treatment Chronic lymphedema bilateral lower extremities Follow-up on wound cultures, preliminary positive for MRSA Continue IV antibiotics with Vancomycin pending final culture report. Symptomatic care and pain management Recommend following up outpatient for lymphedema therapy upon discharge Pending final culture and sensitivity reports, may consider consult to infectio us disease. CODE STATUS: full code DVT prophylaxis: Heparin Discussed with: patient and RN Anticipated discharge date: tomorrow Anticipated discharge place: home A total of 30 minutes was spent on the care of this complex patient more than 50% of the time was spent in counseling and care coordination. Objective - Vital Signs Vital signs: Vital Signs Temp 97.6 F 05/06/21 07:00 Pulse 83 05/06/21 07:00 Resp 18 05/06/21 07:00 BP 142/72 05/06/21 07:00 Pulse Ox 98 05/06/21 07:00 Intake & Output 05/05/21 05/06/21 05/06/21 18:59 06:59 18:59 Intake Total 540 340 Balance 540 340 Intake: Oral 540 340 Other: Voiding Method Toilet # Voids 0 1 - Labs CBC & Chem 7: 05/06/21 06:05 05/05/21 06:54 Labs: Abnormal Lab Results - Last 24 Hours (Table) 05/06/21 Range/Units 06:05 MCHC 31.4 L (32.0-37.0) g/dL Microbiology - Last 24 Hours (Table) 05/05/21 00:20 Gram Stain - Preliminary Leg - Right Wound Culture - Preliminary Presumptive MRSA 05/04/21 20:55 Blood Culture - Preliminary Blood No Growth after 24 hours 05/04/21 21:10 Blood Culture - Preliminary Blood No Growth after 24 hours
[2021-05-07] MEDS ORDERED: VANCOMYCIN TROUGH DUE 1 EACH MISC MISCELLANE ONE (08:00)
[2021-05-07 09:35] LABS: African American GFR (CKD) >90 (>60 ml/min/1.73 sqM); Anion Gap 9 mmol/L; Blood Urea Nitrogen 11 mg/dL (7-17); Calcium 8.6 mg/dL (8.4-10.2); Carbon Dioxide 19 mmol/L (22-30); Chloride 110 mmol/L (98-107); Glucose 116 mg/dL (74-99); Non-African American GFR(CKD) >90 (>60 ml/min/1.73 sqM); Sodium 138 mmol/L (137-145)
[2021-05-07 09:40] LABS: Potassium 5.2 mmol/L (3.5-5.1)
[2021-05-07] MEDS: VANCOMYCIN 2,250 MG in SODIUM CHLORIDE 0.9% 500 ML 500 ML IVPB SCH (09:44)
[2021-05-07] MEDS: GABAPENTIN 400 MG CAP PO SCH ×3 (09:44→20:27)
[2021-05-07] MEDS: cloNIDine HCL 0.1 MG TAB PO SCH (09:44)
[2021-05-07] MEDS: HEPARIN SODIUM,PORCINE/PF 5,000 UNIT/0.5 ML SYRINGE SQ SCH ×3 (09:45→20:27)
[2021-05-07] MEDS: busPIRone HCl 10 MG TAB PO SCH ×3 (09:45→20:27)
[2021-05-07] MEDS: DULoxetine HCL 60 MG CAPSULE.DR PO SCH ×2 (10:02→20:27)
--- NOTE | 2021-05-07 17:08 | P.PN ---
Subjective Progress Note Date: 05/07/21 Hospital course: Patient is a 45-year-old female with a past medical history of morbid obesity, chronic lymphedema, and COPD. Patient presented to the emergency department from 05/04/21 secondary to recurrent and worsening right leg wound status post completion of antibiotic course with Keflex. patient reports increased erythema and tendernessalong with noticing 2 areas in which she reports losing yellowish discharge. Patient denies being seen by wound care clinic. Patient reports completing 10 day course of Keflex approximately 4 days ago. Patient denies having any fever, chills, diaphoresis, or any other complaints at this time. In the emergency department patient was seen and fully evaluated. CBC and CMP were unremarkable. Patient was started on IV antibiotics of vancomycin admitted under our services. Physical exam: Patient seen and fully evaluated at the bedside this morning. She denies having any new complaints. She continues to report feeling sleepy and weak otherwise denies having any complaints at this time. Pro-calcitonin negative at 0.02, however one culture positive for [id number] MRSA. Vancomycin discontinued and patient placed on Bactrim for sensitivity report. Blood cultures negative 48 hours. Initial plan was to discharge home however patient with continued hypertension and adjustments made to blood pressure medication, clonidine increased to 0.2 mg twice daily. Plans for discharge home tomorrow morning. Vital signs reviewed and stable. General: Nontoxic, no distress and appears stated age. morbidly obese. Derm: Skin warm and dry, normal coloration for ethnicity. Head: Atraumatic, normocephalic and symmetric. Eyes: EOMs intact, no lid lag, and anicteric sclera Mouth: no lip lesions, mucus membranes moist Cardiovascular: regular rate and rhythm with normal S1S2, no murmur, positive posterior tibial pulses bilaterally, and cap refill < 2 seconds. Lungs: Respirations even, regular, and unlabored on room air. Lungs CTA bilaterally, no rhonchi, no rales, no wheezing, and no accessory muscle usage. Abdominal: soft, nontender to palpation, no guarding, no appreciable organomegaly Ext: ROM intact. No gross muscle atrophy, no edema, no contractures Neuro: Speech clear, face symmetrical and CN II-XII grossly intact with no noted focal neuro deficits Psych: Alert and oriented to person, place, time, and situation. Appropriate and pleasant affect. Assessment and Plan of Care: Cellulitis right lower extremity, failed outpatient treatment Chronic lymphedema bilateral lower extremities Symptomatic care and pain management Recommend following up outpatient for lymphedema therapy upon discharge Wound culture positive for multidrug resistant MRSA. Patient placed on Bactrim per sensitivity report. Hypertensive urgency Monitor vital signs and adjustments made to blood pressure medication. Patient placed on clonidine 0.2 mg twice daily. CODE STATUS: full code DVT prophylaxis: Heparin Discussed with: patient and RN Anticipated discharge date: tomorrow morning Anticipated discharge place: home A total of 30 minutes was spent on the care of this complex patient more than 50% of the time was spent in counseling and care coordination. Objective - Vital Signs Vital signs: Vital Signs Temp 98.3 F 05/07/21 14:00 Pulse 64 05/07/21 14:00 Resp 16 05/07/21 14:00 BP 168/108 05/07/21 14:00 Pulse Ox 96 05/07/21 14:00 Intake & Output 05/06/21 05/07/21 05/07/21 18:59 06:59 18:59 Intake Total 340 118 Balance 340 118 Intake: Oral 340 118 Other: Voiding Method Toilet # Voids 5 1 - Labs CBC & Chem 7: 05/06/21 06:05 05/07/21 07:00 Labs: Abnormal Lab Results - Last 24 Hours (Table) 05/07/21 Range/Units 07:00 Potassium 5.2 H (3.5-5.1) mmol/L Chloride 110 H (98-107) mmol/L Carbon Dioxide 19 L (22-30) mmol/L Glucose 116 H (74-99) mg/dL Microbiology - Last 24 Hours (Table) 05/05/21 00:20 Gram Stain - Final Leg - Right Wound Culture - Final Methicillin resist S. aureus 05/05/21 00:20 Anaerobic Culture - Preliminary Leg - Right 05/04/21 21:10 Blood Culture - Preliminary Blood No Growth after 48 hours 05/04/21 20:55 Blood Culture - Preliminary Blood No Growth after 48 hours
[2021-05-07] MEDS: cloNIDine HCL 0.2 MG TAB PO SCH (20:47)
[2021-05-07] MEDS: SULFAMETHOX-TMP 800-160MG 1 EACH TAB PO SCH (20:47)
[2021-05-08 07:20] VITALS: BP 143/84; PULSE 60; RESP 18; TEMP 98
[2021-05-08] MEDS: HEPARIN SODIUM,PORCINE/PF 5,000 UNIT/0.5 ML SYRINGE SQ SCH (07:56)
[2021-05-08] MEDS: SULFAMETHOX-TMP 800-160MG 1 EACH TAB PO SCH (07:56)
[2021-05-08] MEDS: cloNIDine HCL 0.2 MG TAB PO SCH (07:57)
[2021-05-08] MEDS: GABAPENTIN 400 MG CAP PO SCH (07:57)
[2021-05-08] MEDS: DULoxetine HCL 60 MG CAPSULE.DR PO SCH (07:57)
[2021-05-08] MEDS: busPIRone HCl 10 MG TAB PO SCH (07:57)
--- NOTE | 2021-05-08 09:10 | P.DS ---
Providers Date of admission: 05/06/21 11:32 Expected date of discharge: 05/08/21 Attending physician: Mirella Celestin MD Primary care physician: Thomas Bhat [facility] Course: Discharge Diagnosis: MRSA Cellulitis right lower extremity, failed outpatient treatment. Wound culture positive for multidrug resistant MRSA. Patient placed on Bactrim per sensitivity report. Hypertensive urgency, clonidine increased to 0.2 mg twice daily. Chronic bilateral lower extremity lymphedema, recommend following up outpatient with lymphedema therapy clinic in [place]. COPD Obstructive sleep apnea Chronic obesity, encouraged outpatient weight management program. Hospital Course: Patient is a 45-year-old female with a past medical history of morbid obesity, chronic lymphedema, and COPD. Patient presented to the emergency department from 05/04/21 secondary to recurrent and worsening right leg wound status post completion of antibiotic course with Keflex. patient reports increased erythema and tendernessalong with noticing 2 areas in which she reports losing yellowish discharge. Patient denies being seen by wound care clinic. Patient reports completing 10 day course of Keflex approximately 4 days ago. Patient denies having any fever, chills, diaphoresis, or any other complaints at this time. In the emergency department patient was seen and fully evaluated. CBC and CMP were unremarkable. Patient was started on IV antibiotics with vancomycin admitted under our services. Wound culture positive for multidrug resistant MRSA. Patient placed on Bactrim per sensitivity report. Patient also had uncontrolled hypertension throughout her stay. Patient's home medication clonidine was increased to 0.2 mg twice daily resulting in resolution of uncontrolled hypertension. Patient educated on importance of monitoring blood pressures closely at home and following up with her PCP for long-term monitoring/management. Patient also encouraged to discuss with her PCP need for prescription for treatment of her lymphoma as there is a lymphedema therapy clinic in [place], but it is necessary for her PCP referral for service. Patient medically stable for discharge and is being discharged home on clonidine 0.2 mg twice daily for blood pressure management and Bactrim for treatment of MRSA cellulitis. Physical exam: Vital signs reviewed and stable. General: Nontoxic, no distress and appears stated age. morbidly obese. Derm: Skin warm and dry, normal coloration for ethnicity. Mild erythema with 2 small areas of scabbing with yellow crusting to right lower extremity. Head: Atraumatic, normocephalic and symmetric. Eyes: EOMs intact, no lid lag, and anicteric sclera Mouth: no lip lesions, mucus membranes moist Cardiovascular: regular rate and rhythm with normal S1S2, no murmur, positive posterior tibial pulses bilaterally, and cap refill < 2 seconds. Lungs: Respirations even, regular, and unlabored on room air. Lungs CTA alexus aterally, no rhonchi, no rales, no wheezing, and no accessory muscle usage. Abdominal: soft, nontender to palpation, no guarding, no appreciable organomegaly Ext: ROM intact. No gross muscle atrophy, no edema, no contractures Neuro: Speech clear, face symmetrical and CN II-XII grossly intact with no noted focal neuro deficits Psych: Alert and oriented to person, place, time, and situation. Appropriate and pleasant affect. A total of 35 minutes of time were spent preparing this complex discharge summary. Patient Condition at Discharge: Stable Plan - Discharge Summary New Discharge Prescriptions: New Sulfamethox-Tmp 800-160Mg [Bactrim DS 800-160 mg] 1 each PO BID 9 Days #18 tab cloNIDine HCL [Catapres] 0.2 mg PO BID 30 Days #60 tab Continue Potassium Chloride ER [K-Dur 10] 10 meq PO DAILY Gabapentin 800 mg PO TID busPIRone HCL [Buspar] 30 mg PO TID Furosemide [Lasix] 20 mg PO DAILY DULoxetine HCL [Cymbalta] 60 mg PO BID Cariprazine HCl [Vraylar] 3 mg PO DAILY Discontinued cloNIDine HCL [Catapres] 0.1 mg PO BID Discharge Medication List Cariprazine HCl [Vraylar] 3 mg PO DAILY 05/04/21 [History] DULoxetine HCL [Cymbalta] 60 mg PO BID 05/04/21 [History] Furosemide [Lasix] 20 mg PO DAILY 05/04/21 [History] Gabapentin 800 mg PO TID 05/04/21 [History] Potassium Chloride ER [K-Dur 10] 10 meq PO DAILY 05/04/21 [History] busPIRone HCL [Buspar] 30 mg PO TID 05/04/21 [History] Sulfamethox-Tmp 800-160Mg [Bactrim DS 800-160 mg] 1 each PO BID 9 Days #18 tab 05/08/21 [Rx] cloNIDine HCL [Catapres] 0.2 mg PO BID 30 Days #60 tab 05/08/21 [Rx] Follow up Appointment(s)/Referral(s): Thomas Bhat MD [Primary Care Provider] - 1-2 days Patient Instructions/Handouts: MRSA (Methicillin-Resistant Staphylococcus Aureus) (GEN), Cellulitis (GEN) Activity/Diet/Wound Care/Special Instructions: Lymphedema Therapy Please contact Dr. Bhat for prescription for treatment of your lymphedema. As a ackerman element of our out-patient services, [facility] offers Lymphedema Therapy services by a [employer] [place] [employer] Certified Lymphedema Therapist. Lymphedema therapy can benefit cancer patients as well as patients who develop circulatory problems or have a genetic condition that result in the swelling of the arms and legs. A physician referral is necessary for this service, and it is generally covered by health insurance. For more information about Living with Lymphedema, call [phone] and ask to speak with the Lymphedema Therapist. Activity: As tolerated. Take breaks as needed. Diet: Heart healthy and carb consistent diet. Avoid salts, or foods with hidden salts such as canned or boxed foods and frozen dinners. Extra salt makes your heart work harder and traps the fluid in your body for longer. Special Instructions: Take all of your medications as directed and remember to keep all of your doctor's appointments and follow-up as needed. Thank you for allowing us to participate in your care, it was truly a pleasure having you for our patient!!! Discharge/Stand Alone Forms: Work/School Release, Work/Release Restrictions Form Discharge Disposition: HOME SELF-CARE
== END 2021-05-08 11:23 | disposition home or self-care (01) | DRG 603 ==
LOC: EC 19:05 → 6NMEDSUR 22:08 → OBSVTOIN 05-06 11:32 → 4SSUR 05-07 16:55 → 6NMEDSUR 05-07 16:55
PROVIDERS: ADMIT Internal Medicine; ATTEND Internal Medicine
DX: L03.115 Cellulitis of right lower limb (principal); Z68.44 Body mass index [BMI] 60.0-69.9, adult; C85.90 Non-Hodgkin lymphoma, unspecified, unspecified site; Z16.24 Resistance to multiple antibiotics; I10 Essential (primary) hypertension; I16.0 Hypertensive urgency; B95.62 Methicillin resistant Staphylococcus aureus infection as the cause of diseases classified elsewhere; E66.01 Morbid (severe) obesity due to excess calories; I89.0 Lymphedema, not elsewhere classified; M79.7 Fibromyalgia; F31.9 Bipolar disorder, unspecified; F41.9 Anxiety disorder, unspecified; G47.33 Obstructive sleep apnea (adult) (pediatric); G62.9 Polyneuropathy, unspecified; M54.50 Low back pain, unspecified; G89.29 Other chronic pain; M06.9 Rheumatoid arthritis, unspecified; J44.9 Chronic obstructive pulmonary disease, unspecified; F17.200 Nicotine dependence, unspecified, uncomplicated; Z86.14 Personal history of Methicillin resistant Staphylococcus aureus infection; Z88.8 Allergy status to other drugs, medicaments and biological substances; Z91.040 Latex allergy status; Z79.899 Other long term (current) drug therapy; Z90.711 Acquired absence of uterus with remaining cervical stump; Z98.890 Other specified postprocedural states; Z80.0 Family history of malignant neoplasm of digestive organs; Z82.49 Family history of ischemic heart disease and other diseases of the circulatory system; Z82.0 Family history of epilepsy and other diseases of the nervous system
CPT/HCPCS: 36415; 80048; 80053; 80202; 83605; 84145; 85025; 85027; 87040; 87070; 87075; 87077; 87186; 87205; 90471; 90714; 96365; 96366; 96375; 99285

== ENCOUNTER 2021-07-20 14:50 | Emergency (ER) | payer MEDICARE, OTHER ==
[2021-07-20 15:03] VITALS: TEMP 97.5
[2021-07-20] MEDS ORDERED: methylPREDNISolone SOD SUCCI 125 MG/2 ML VIAL IV STA (15:27)
[2021-07-20] MEDS ORDERED: IPRATROPIUM-ALBUTEROL 3 ML NEB INHALATION STA (15:27)
[2021-07-20 16:12] LABS: Basophils # (A) 0.1 k/uL (0-0.2); Basophils % (A) 2 %; Eosinophils # (A) 0.3 k/uL (0-0.7); Eosinophils % (A) 5 %; HCT 52.3 % (34.0-46.0); HGB 16.2 gm/dL (11.4-16.0); Lymphocytes # (A) 1.8 k/uL (1.0-4.8); Lymphocytes % (A) 26 %; MCH 29.7 pg (25.0-35.0); MCV 95.9 fL (80.0-100.0); Mean Platelet Volume 7.2; Monocytes # (A) 0.5 k/uL (0-1.0); Monocytes % (A) 7 %; Neutrophils # (A) 3.9 k/uL (1.3-7.7); Neutrophils % (A) 58 %; Platelet Count 215 k/uL (150-450); RBC 5.45 m/uL (3.80-5.40); RDW 13.1 % (11.5-15.5); WBC 6.8 k/uL (3.8-10.6)
--- NOTE | 2021-07-20 16:20 | XR ---
EXAMINATION TYPE: XR chest 2V DATE OF EXAM: 07/20/2021 COMPARISON: 01/26/2021 HISTORY: Short of breath TECHNIQUE: 2 views FINDINGS: There is no heart failure nor confluent pneumonic infiltrate. Heart and mediastinum appear normal. Diaphragm is normal. Bony thorax is intact. IMPRESSION: Normal chest. No change.
[2021-07-20 16:33] LABS: ALT 20 U/L (4-34); AST 20 U/L (14-36); African American GFR (CKD) >90 (>60 ml/min/1.73 sqM); Albumin 3.9 g/dL (3.5-5.0); Alkaline Phosphatase 70 U/L (38-126); Anion Gap 7 mmol/L; Blood Urea Nitrogen 14 mg/dL (7-17); Calcium 8.7 mg/dL (8.4-10.2); Carbon Dioxide 26 mmol/L (22-30); Chloride 105 mmol/L (98-107); Glucose 96 mg/dL (74-99); Non-African American GFR(CKD) >90 (>60 ml/min/1.73 sqM); Potassium 4.4 mmol/L (3.5-5.1); Sodium 138 mmol/L (137-145); Total Bilirubin 0.3 mg/dL (0.2-1.3); Total Protein 7.3 g/dL (6.3-8.2)
--- NOTE | 2021-07-20 17:18 | ED ---
General Adult HPI - General Chief complaint: Anxiety Stated complaint: anxiety Time Seen by Provider: 07/20/21 15:17 Source: patient, EMS Mode of arrival: EMS Limitations: no limitations - History of Present Illness Initial comments: She is a 45-year-old female with history of asthma and COPD presenting with difficulty breathing. Patient states that she works for [employer], earlier today a person walked in apparently covering gasoline, the homes triggered an asthma attack. She did not have her rescue inhaler with her. Patient states that she feels as though she is unable to take a deep breath and she feels chest tightness. Additionally she has been complaining of some congestion and dry cough for the last few days. She denies any chest pain, radiation of pain down the arm or up the neck, palpitations, weakness, nausea, vomiting, abdominal pain, diarrhea, constipation, sore throat, ear pain, sinus pressure, fever, chills. - Related Data Home Medications Medication Instructions Recorded Confirmed Cariprazine HCl [Vraylar] 3 mg PO DAILY 05/04/21 05/04/21 DULoxetine HCL [Cymbalta] 60 mg PO BID 05/04/21 05/04/21 Furosemide [Lasix] 20 mg PO DAILY 05/04/21 05/04/21 Gabapentin 800 mg PO TID 05/04/21 05/04/21 Potassium Chloride ER [K-Dur 10] 10 meq PO DAILY 05/04/21 05/04/21 busPIRone HCL [Buspar] 30 mg PO TID 05/04/21 05/04/21 Previous Rx's Medication Instructions Recorded Sulfamethox-Tmp 800-160Mg [Bactrim 1 each PO BID 9 Days #18 tab 05/08/21 DS 800-160 mg] cloNIDine HCL [Catapres] 0.2 mg PO BID 30 Days #60 tab 05/08/21 Albuterol Inhaler [Ventolin Hfa 2 puff INHALATION RT-QID PRN #8 gm 07/20/21 Inhaler] Allergies Allergy/AdvReac Type Severity Reaction Status Date / Time latex Allergy Itching Verified 07/20/21 15:03 lithium AdvReac Vomiting Verified 07/20/21 15:03 pregabalin [From Lyrica] AdvReac Vomiting Verified 07/20/21 15:03 topiramate [From Topamax] AdvReac Abdominal Verified 07/20/21 15:03 Pain Review of Systems ROS Statement: Those systems with pertinent positive or pertinent negative responses have been documented in the HPI. ROS Other: All systems not noted in ROS Statement are negative. Past Medical History Past Medical History: Asthma, COPD, Fibromyalgia, GERD/Reflux, Hypertension, Musculoskeletal Disorder, Osteoarthritis (OA), Rheumatoid Arthritis (RA) Additional Past Medical History / Comment(s): Neuropathy feet/legs and hands, bulging discs, chronic low back pain, DDD. History of Any Multi-Drug Resistant Organisms: MRSA Date of last positivie culture/infection: 05/05/21 MDRO Source:: MRSA LEG Past Surgical History: Hysterectomy, Orthopedic Surgery, Tubal Ligation Additional Past Surgical History / Comment(s): Right knee arthroscopic surg x3; LEEP procedure, partial hysterectomy 2009/ovaries intact, colonoscopy 2013, Past Anesthesia/Blood Transfusion Reactions: No Reported Reaction Past Psychological History: Anxiety, Bipolar, Depression Smoking Status: Current every day smoker Past Alcohol Use History: None Reported Past Drug Use History: None Reported - Past Family History Mother Family Medical History: Cancer, Hypertension Additional Family Medical History / Comment(s): neuropathy; Mother had Colon Cancer Father Family Medical History: No Reported History Additional Family Medical History / Comment(s): Father is bipolar General Exam Limitations: no limitations General appearance: alert, in no apparent distress Head exam: Present: atraumatic, normocephalic, normal inspection Eye exam: Present: normal appearance, EOMI. Absent: scleral icterus ENT exam: Present: normal exam, normal oropharynx, mucous membranes moist, TM's normal bilaterally Neck exam: Present: normal inspection. Absent: tenderness, lymphadenopathy Respiratory exam: Present: normal lung sounds bilaterally. Absent: respiratory distress, wheezes, rales, rhonchi, stridor Cardiovascular Exam: Present: regular rate, normal rhythm, normal heart sounds. Absent: systolic murmur, diastolic murmur, rubs, gallop, clicks Neurological exam: Present: alert, oriented X3, CN II-XII intact Psychiatric exam: Present: normal affect, normal mood Skin exam: Present: warm, dry, intact, normal color. Absent: rash Course Vital Signs 07/20/21 07/20/21 07/20/21 14:54 15:53 16:02 Temperature 97.5 F L Pulse Rate 72 78 84 Respiratory 18 Rate Blood Pressure 145/82 O2 Sat by Pulse 95 Oximetry 07/20/21 18:13 Temperature Pulse Rate 81 Respiratory 15 Rate Blood Pressure 121/83 O2 Sat by Pulse 99 Oximetry Medical Decision Making - Medical Decision Making Patient is a 45-year-old female with history of asthma and COPD presenting with chief complaint of shortness of breath. 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 Examination she is not in respiratory distress, oxygen saturation is 98%, lungs are clear to auscultation. CBC and CMP are unremarkable. Chest x-rays negative. Patient is negative for influenza and Covid. Patient was given steroids and DuoNeb, on reassessment she reports feeling much better. She appears stable for discharge and outpatient follow-up at this time. Her vital with prescription for albuterol inhaler. Follow-up with PCP in one to 2 days. Report back to ER if any new or worsening symptoms. I discussed return parameters answered all questions. Patient conveyed verbal understanding and agreed to the plan. I discussed this case with my attending Dr. Duron. - Lab Data Result diagrams: 07/20/21 15:50 07/20/21 15:50 Lab Results 07/20/21 07/20/21 07/20/21 Range/Units 15:50 15:50 15:50 WBC 6.8 (3.8-10.6) k/uL RBC 5.45 H (3.80-5.40) m/uL Hgb 16.2 H (11.4-16.0) gm/dL Hct 52.3 H (34.0-46.0) % MCV 95.9 (80.0-100.0) fL MCH 29.7 (25.0-35.0) pg MCHC 31.0 (31.0-37.0) g/dL RDW 13.1 (11.5-15.5) % Plt Count 215 (150-450) k/uL MPV 7.2 Neutrophils % 58 % Lymphocytes % 26 % Monocytes % 7 % Eosinophils % 5 % Basophils % 2 % Neutrophils # 3.9 (1.3-7.7) k/uL Lymphocytes # 1.8 (1.0-4.8) k/uL Monocytes # 0.5 (0-1.0) k/uL Eosinophils # 0.3 (0-0.7) k/uL Basophils # 0.1 (0-0.2) k/uL Sodium 138 (137-145) mmol/L Potassium 4.4 (3.5-5.1) mmol/L Chloride 105 (98-107) mmol/L Carbon Dioxide 26 (22-30) mmol/L Anion Gap 7 mmol/L BUN 14 (7-17) mg/dL Creatinine 0.76 (0.52-1.04) mg/dL Est GFR (CKD-EPI)AfAm >90 (>60 ml/min/1.73 sqM) Est GFR (CKD-EPI)NonAf >90 (>60 ml/min/1.73 sqM) Glucose 96 (74-99) mg/dL Plasma Lactic Acid Alessio 1.2 (0.7-2.0) mmol/L Calcium 8.7 (8.4-10.2) mg/dL Total Bilirubin 0.3 (0.2-1.3) mg/dL AST 20 (14-36) U/L ALT 20 (4-34) U/L Alkaline Phosphatase 70 (38-126) U/L Troponin I (0.000-0.034) ng/mL Total Protein 7.3 (6.3-8.2) g/dL Albumin 3.9 (3.5-5.0) g/dL Coronavirus (PCR) (Not Detectd) Influenza Type A RNA (Not Detectd) Influenza Type B (PCR) (Not Detectd) 07/20/21 07/20/21 07/20/21 Range/Units 15:50 15:50 17:02 WBC (3.8-10.6) k/uL RBC (3.80-5.40) m/uL Hgb (11.4-16.0) gm/dL Hct (34.0-46.0) % MCV (80.0-100.0) fL MCH (25.0-35.0) pg MCHC (31.0-37.0) g/dL RDW (11.5-15.5) % Plt Count (150-450) k/uL MPV Neutrophils % % Lymphocytes % % Monocytes % % Eosinophils % % Basophils % % Neutrophils # (1.3-7.7) k/uL Lymphocytes # (1.0-4.8) k/uL Monocytes # (0-1.0) k/uL Eosinophils # (0-0.7) k/uL Basophils # (0-0.2) k/uL Sodium (137-145) mmol/L Potassium (3.5-5.1) mmol/L Chloride (98-107) mmol/L Carbon Dioxide (22-30) mmol/L Anion Gap mmol/L BUN (7-17) mg/dL Creatinine (0.52-1.04) mg/dL Est GFR (CKD-EPI)AfAm (>60 ml/min/1.73 sqM) Est GFR (CKD-EPI)NonAf (>60 ml/min/1.73 sqM) Glucose (74-99) mg/dL Plasma Lactic Acid Alessio (0.7-2.0) mmol/L Calcium (8.4-10.2) mg/dL Total Bilirubin (0.2-1.3) mg/dL AST (14-36) U/L ALT (4-34) U/L Alkaline Phosphatase (38-126) U/L Troponin I 0.024 (0.000-0.034) ng/mL Total Protein (6.3-8.2) g/dL Albumin (3.5-5.0) g/dL Coronavirus (PCR) Not Detected (Not Detectd) Influenza Type A RNA Not Detected (Not Detectd) Influenza Type B (PCR) Not Detected (Not Detectd) Disposition Clinical Impression: Shortness of breath Disposition: HOME SELF-CARE Condition: Good Instructions (If sedation given, give patient instructions): Asthma (ED), Generalized Anxiety Disorder (ED), Shortness of Breath (ED) Additional Instructions: Follow-up with PCP in one to 2 days. Report back to ER with any new or worsening symptoms. Take medication as prescribed. Prescriptions: Albuterol Inhaler [Ventolin Hfa Inhaler] 2 puff INHALATION RT-QID PRN #8 gm PRN Reason: Shortness Of Breath Is patient prescribed a controlled substance at d/c from ED?: No Referrals: Thomas Bhat MD [Primary Care Provider] - 1-2 days Time of Disposition: 18:00
[2021-07-20 18:15] VITALS: BP 121/83; PULSE 81; RESP 15
== END 2021-07-20 18:14 | disposition home or self-care (01) ==
LOC: EC 14:50
DX: R06.02 Shortness of breath (principal); J44.9 Chronic obstructive pulmonary disease, unspecified; I10 Essential (primary) hypertension; F17.200 Nicotine dependence, unspecified, uncomplicated; M19.90 Unspecified osteoarthritis, unspecified site; M79.7 Fibromyalgia; Z91.040 Latex allergy status; Z88.8 Allergy status to other drugs, medicaments and biological substances; Z79.899 Other long term (current) drug therapy; Z20.822 Contact with and (suspected) exposure to COVID-19
CPT/HCPCS: 36415; 94640; 93005; 80053; 83605; 84484; 85025; 87502; 87635; 71046; 99285; 96374; J2930

== ENCOUNTER 2021-08-08 20:21 | Observation (INO) | payer MEDICARE, OTHER ==
[2021-08-08] MEDS ORDERED: HYDROcodone/APAP 5-325MG 1 EACH TAB PO STA (21:27)
[2021-08-08 23:38] LABS: Basophils # (A) 0.1 k/uL (0-0.2); Basophils % (A) 2 %; Eosinophils # (A) 0.3 k/uL (0-0.7); Eosinophils % (A) 5 %; HCT 43.9 % (34.0-46.0); HGB 14.3 gm/dL (11.4-16.0); Lymphocytes # (A) 1.3 k/uL (1.0-4.8); Lymphocytes % (A) 21 %; MCHC 32.6 g/dL (31.0-37.0); Mean Platelet Volume 7.6; Monocytes # (A) 0.4 k/uL (0-1.0); Monocytes % (A) 6 %; Neutrophils # (A) 4.1 k/uL (1.3-7.7); Neutrophils % (A) 64 %; Platelet Count 212 k/uL (150-450); RBC 4.62 m/uL (3.80-5.40); WBC 6.4 k/uL (3.8-10.6)
[2021-08-08 23:56] LABS: ALT 21 U/L (4-34); AST 22 U/L (14-36); African American GFR (CKD) >90 (>60 ml/min/1.73 sqM); Albumin 3.8 g/dL (3.5-5.0); Alkaline Phosphatase 73 U/L (38-126); Anion Gap 7 mmol/L; Blood Urea Nitrogen 11 mg/dL (7-17); C Reactive Protein 0.9 mg/dL (<1.0); Calcium 8.6 mg/dL (8.4-10.2); Carbon Dioxide 25 mmol/L (22-30); Chloride 104 mmol/L (98-107); Glucose 112 mg/dL (74-99); Non-African American GFR(CKD) >90 (>60 ml/min/1.73 sqM); Potassium 4.1 mmol/L (3.5-5.1); Sodium 136 mmol/L (137-145); Total Bilirubin 0.4 mg/dL (0.2-1.3); Total Protein 6.5 g/dL (6.3-8.2)
--- NOTE | 2021-08-09 00:06 | ED ---
Extremity Problem HPI - General Chief complaint: Extremity Problem,Nontraumatic Stated complaint: possible covid/headache/bodyaches Time Seen by Provider: 08/08/21 21:13 Source: patient, RN notes reviewed Mode of arrival: ambulatory Limitations: no limitations - History of Present Illness Initial comments: This is a 45-year-old female who presents to the emergency department for fatigue and lower extremity swelling and erythema. Patient has had 5 documented MRSA infections in the last 3 years. She is concerned that she may be developing another infection in the legs. States that when she was admitted in April of this year, she was told that an infection in her right foot was so deep that she may end up having it amputated. She does currently follow with a wound clinic. She is also concerned that she may have COVID, states that a couple of days ago her family tested positive and she has associated headaches, body aches, and fatigue. 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 She does have known lymphadema and has chronic swelling in both of her legs. MD Complaint: extremity pain, extremity swelling Location: bilateral lower extremity History of Same: Yes Worsens with: weight bearing, walking, palpation - Related Data Home Medications Medication Instructions Recorded Confirmed Cariprazine HCl [Vraylar] 3 mg PO DAILY 05/04/21 08/09/21 DULoxetine HCL [Cymbalta] 60 mg PO BID 05/04/21 08/09/21 Furosemide [Lasix] 20 mg PO DAILY 05/04/21 08/09/21 Gabapentin 800 mg PO TID PRN 05/04/21 08/09/21 Potassium Chloride ER [K-Dur 10] 10 meq PO DAILY 05/04/21 08/09/21 busPIRone HCL [Buspar] 30 mg PO TID 05/04/21 08/09/21 Cephalexin [Keflex] 500 mg PO QID 08/09/21 08/09/21 Sulfamethox-Tmp 800-160Mg [Bactrim 1 tab PO BID 08/09/21 08/09/21 DS 800-160 mg] cloNIDine HCL [Catapres] 0.1 mg PO BID 08/09/21 08/09/21 Previous Rx's Medication Instructions Recorded Albuterol Inhaler [Ventolin Hfa 2 puff INHALATION RT-QID PRN #8 gm 07/20/21 Inhaler] Allergies Allergy/AdvReac Type Severity Reaction Status Date / Time latex Allergy Itching Verified 08/09/21 11:55 lithium AdvReac Vomiting Verified 08/09/21 11:55 pregabalin [From Lyrica] AdvReac Vomiting Verified 08/09/21 11:55 topiramate [From Topamax] AdvReac Abdominal Verified 08/09/21 11:55 Pain Review of Systems ROS Statement: Those systems with pertinent positive or pertinent negative responses have been documented in the HPI. ROS Other: All systems not noted in ROS Statement are negative. Constitutional: Denies: fever, chills ENT: Denies: ear pain, throat pain Respiratory: Denies: cough, dyspnea Cardiovascular: Denies: chest pain, palpitations Gastrointestinal: Denies: abdominal pain, nausea, vomiting, diarrhea Skin: Reports: rash Neurological: Denies: headache Past Medical History Past Medical History: Asthma, COPD, Fibromyalgia, GERD/Reflux, Hypertension, Musculoskeletal Disorder, Osteoarthritis (OA), Rheumatoid Arthritis (RA) Additional Past Medical History / Comment(s): Neuropathy feet/legs and hands, bulging discs, chronic low back pain, DDD. History of Any Multi-Drug Resistant Organisms: MRSA Date of last positivie culture/infection: 05/05/21 MDRO Source:: MRSA LEG Past Surgical History: Hysterectomy, Orthopedic Surgery, Tubal Ligation Additional Past Surgical History / Comment(s): Right knee arthroscopic surg x3; LEEP procedure, partial hysterectomy 2009/ovaries intact, colonoscopy 2013, Past Anesthesia/Blood Transfusion Reactions: No Reported Reaction Past Psychological History: Anxiety, Bipolar, Depression Smoking Status: Current every day smoker Past Alcohol Use History: Occasional Past Drug Use History: None Reported - Past Family History Mother Family Medical History: Cancer, Hypertension Additional Family Medical History / Comment(s): neuropathy; Mother had Colon Cancer Father Family Medical History: No Reported History Additional Family Medical History / Comment(s): Father is bipolar General Exam Limitations: no limitations General appearance: alert, in distress Head exam: Present: atraumatic, normocephalic, normal inspection Respiratory exam: Present: normal lung sounds bilaterally. Absent: respiratory distress, wheezes, rales, rhonchi, stridor Cardiovascular Exam: Present: regular rate, normal rhythm, normal heart sounds. Absent: systolic murmur, diastolic murmur, rubs, gallop, clicks Extremities exam: Present: other (The lower extremities have multiple erythematous areas with increased heat and swelling. No purulent drainage. 2+ d orsalis pedis and tibialis posterior pulses bilaterally. Capillary refill less than 1 second. ) Neurological exam: Present: alert, oriented X3, CN II-XII intact Psychiatric exam: Present: normal affect, normal mood Course Vital Signs 08/08/21 08/08/21 08/09/21 20:56 23:18 01:41 Temperature 98.1 F 97.7 F 98.1 F Pulse Rate 105 H 86 77 Respiratory 20 20 Rate Blood Pressure 136/81 139/88 145/86 O2 Sat by Pulse 98 99 99 Oximetry Medical Decision Making - Medical Decision Making This is a 45-year-old female who presents to the emergency department for bilateral lower extremity pain/swelling, headaches, and myalgias. Patient has chronic swelling of the bilateral lower extremities due to lymphedema. Swelling does appear increased from baseline and there is associated erythema and weeping. Additionally, patient's recurrent MRSA infections pose additional concern. Patient tested negative for COVID. Blood and wound cultures obtained. Case signed out to ED attending Dr. Moss. - Lab Data Result diagrams: 08/11/21 06:22 08/11/21 06:22 Lab Results 08/08/21 08/08/21 08/08/21 Range/Units 21:11 22:57 22:57 WBC 6.4 (3.8-10.6) k/uL RBC 4.62 (3.80-5.40) m/uL Hgb 14.3 (11.4-16.0) gm/dL Hct 43.9 (34.0-46.0) % MCV 95.0 (80.0-100.0) fL MCH 31.0 (25.0-35.0) pg MCHC 32.6 (31.0-37.0) g/dL RDW 13.0 (11.5-15.5) % Plt Count 212 (150-450) k/uL MPV 7.6 Neutrophils % 64 % Lymphocytes % 21 % Monocytes % 6 % Eosinophils % 5 % Basophils % 2 % Neutrophils # 4.1 (1.3-7.7) k/uL Lymphocytes # 1.3 (1.0-4.8) k/uL Monocytes # 0.4 (0-1.0) k/uL Eosinophils # 0.3 (0-0.7) k/uL Basophils # 0.1 (0-0.2) k/uL Sodium 136 L (137-145) mmol/L Potassium 4.1 (3.5-5.1) mmol/L Chloride 104 (98-107) mmol/L Carbon Dioxide 25 (22-30) mmol/L Anion Gap 7 mmol/L BUN 11 (7-17) mg/dL Creatinine 0.65 (0.52-1.04) mg/dL Est GFR (CKD-EPI)AfAm >90 (>60 ml/min/1.73 sqM) Est GFR (CKD-EPI)NonAf >90 (>60 ml/min/1.73 sqM) Glucose 112 H (74-99) mg/dL Plasma Lactic Acid Alessio (0.7-2.0) mmol/L Calcium 8.6 (8.4-10.2) mg/dL Total Bilirubin 0.4 (0.2-1.3) mg/dL AST 22 (14-36) U/L ALT 21 (4-34) U/L Alkaline Phosphatase 73 (38-126) U/L C-Reactive Protein 0.9 (<1.0) mg/dL NT-Pro-B Natriuret Pep pg/mL Total Protein 6.5 (6.3-8.2) g/dL Albumin 3.8 (3.5-5.0) g/dL Coronavirus (PCR) Not Detected (Not Detectd) 08/08/21 08/08/21 Range/Units 22:57 22:57 WBC (3.8-10.6) k/uL RBC (3.80-5.40) m/uL Hgb (11.4-16.0) gm/dL Hct (34.0-46.0) % MCV (80.0-100.0) fL MCH (25.0-35.0) pg MCHC (31.0-37.0) g/dL RDW (11.5-15.5) % Plt Count (150-450) k/uL MPV Neutrophils % % Lymphocytes % % Monocytes % % Eosinophils % % Basophils % % Neutrophils # (1.3-7.7) k/uL Lymphocytes # (1.0-4.8) k/uL Monocytes # (0-1.0) k/uL Eosinophils # (0-0.7) k/uL Basophils # (0-0.2) k/uL Sodium (137-145) mmol/L Potassium (3.5-5.1) mmol/L Chloride (98-107) mmol/L Carbon Dioxide (22-30) mmol/L Anion Gap mmol/L BUN (7-17) mg/dL Creatinine (0.52-1.04) mg/dL Est GFR (CKD-EPI)AfAm (>60 ml/min/1.73 sqM) Est GFR (CKD-EPI)NonAf (>60 ml/min/1.73 sqM) Glucose (74-99) mg/dL Plasma Lactic Acid Alessio 1.7 (0.7-2.0) mmol/L Calcium (8.4-10.2) mg/dL Total Bilirubin (0.2-1.3) mg/dL AST (14-36) U/L ALT (4-34) U/L Alkaline Phosphatase (38-126) U/L C-Reactive Protein (<1.0) mg/dL NT-Pro-B Natriuret Pep 101 pg/mL Total Protein (6.3-8.2) g/dL Albumin (3.5-5.0) g/dL Coronavirus (PCR) (Not Detectd) Disposition Clinical Impression: Bilateral lower leg cellulitis Disposition: ADMITTED IP TO THIS HOSP
[2021-08-09] MEDS ORDERED: VANCOMYCIN IV PER PHARMACY 1 EACH MISC MISCELLANE PRN (06:51)
[2021-08-09] MEDS ORDERED: NALOXONE 0.4 MG/ML 1 ML VIAL IV PRN (06:52)
[2021-08-09] MEDS ORDERED: VANCOMYCIN 2,000 MG in SODIUM CHLORIDE 0.9% 500 ML 500 ML IVPB STA (06:56)
[2021-08-09] MEDS ORDERED: HYDROmorphone 1 MG/ML 1 ML SYRINGE IVP STA (08:03)
[2021-08-09] MEDS: SODIUM CHLORIDE 0.9% 1,000 ML IV SCH ×2 (08:24→20:04)
[2021-08-09] MEDS ORDERED: ENOXAPARIN 40 MG/0.4 ML SYRINGE SQ SCH (09:00)
[2021-08-09] MEDS: DULoxetine HCL 60 MG CAPSULE.DR PO SCH ×2 (09:41→20:00)
[2021-08-09] MEDS: Cariprazine Hcl [Vraylar] PO SCH (09:41)
[2021-08-09] MEDS: FUROSEMIDE 20 MG TAB PO SCH (09:41)
[2021-08-09] MEDS: POTASSIUM CHLORIDE ER 10 MEQ TAB.ER.PRT PO SCH (09:41)
[2021-08-09] MEDS: GABAPENTIN 400 MG CAP PO SCH ×3 (09:41→22:12)
--- NOTE | 2021-08-09 11:05 | P.HPIM ---
History of Present Illness H&P Date: 08/09/21 Chief Complaint: cellulitis 45-year-old female with history of chronic bilateral legs lymphedema, asthma, COPD, fibromyalgia, GERD/Reflux, hypertension, osteoarthritis, peripheral neuropathy in the feet/legs and hands, bulging discs, chronic low back pain, recurrent MRA cellulitis bilateral lower legs presented to the ER due to worsening areas of redness, pain and swelling in the lower extremities. Patient has had 5 documented MRSA infections in the last 3 years. She is concerned that she may be developing another infection in the legs. Last admission for this was this past April. Denied fevers or chills, no n/v/d. No cp or sob. She not sure if she bumped her legs somewhere. She does currently follow with a wound clinic. She is also concerned that she may have COVID, states that a couple of days ago her family tested positive and she has associated headaches, body aches, and fatigue. 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 Review of Systems Complete ros performed, pertinent positives per HPI otherwise negative. Past Medical History Past Medical History: Asthma, COPD, Fibromyalgia, GERD/Reflux, Hypertension, Musculoskeletal Disorder, Osteoarthritis (OA), Rheumatoid Arthritis (RA) Additional Past Medical History / Comment(s): Neuropathy feet/legs and hands, bulging discs, chronic low back pain, DDD. History of Any Multi-Drug Resistant Organisms: MRSA Date of last positivie culture/infection: 05/05/21 MDRO Source:: MRSA LEG Past Surgical History: Hysterectomy, Orthopedic Surgery, Tubal Ligation Additional Past Surgical History / Comment(s): Right knee arthroscopic surg x3; LEEP procedure, partial hysterectomy 2009/ovaries intact, colonoscopy 2013, Past Anesthesia/Blood Transfusion Reactions: No Reported Reaction Past Psychological History: Anxiety, Bipolar, Depression Additional Psychological History / Comment(s): [facility] patient. Past history of substance abuse. Did not relate to having children. Does have a pet dog. No travel. The experience. Active tobacco smoker. Denies recreational drug use or alcohol use Smoking Status: Current every day smoker Past Alcohol Use History: Occasional Additional Past Alcohol Use History / Comment(s): Pt. admits to occasional ETOH use. BAT 0. Past Drug Use History: None Reported Additional Drug Use History / Comment(s): Past history of substance abuse. Pt. denies drug use at this time. - Past Family History Mother Family Medical History: Cancer, Hypertension Additional Family Medical History / Comment(s): neuropathy; Mother had Colon Cancer Father Family Medical History: No Reported History Additional Family Medical History / Comment(s): Father is bipolar Medications and Allergies Home Medications Medication Instructions Recorded Confirmed Type Cariprazine HCl [Vraylar] 3 mg PO DAILY 05/04/21 05/04/21 History DULoxetine HCL [Cymbalta] 60 mg PO BID 05/04/21 05/04/21 History Furosemide [Lasix] 20 mg PO DAILY 05/04/21 05/04/21 History Gabapentin 800 mg PO TID 05/04/21 05/04/21 History Potassium Chloride ER [K-Dur 10] 10 meq PO DAILY 05/04/21 05/04/21 History busPIRone HCL [Buspar] 30 mg PO TID 05/04/21 05/04/21 History Sulfamethox-Tmp 800-160Mg [Bactrim 1 each PO BID 9 Days #18 tab 05/08/21 Rx DS 800-160 mg] cloNIDine HCL [Catapres] 0.2 mg PO BID 30 Days #60 tab 05/08/21 Rx Albuterol Inhaler [Ventolin Hfa 2 puff INHALATION RT-QID PRN #8 gm 07/20/21 Rx Inhaler] Allergies Allergy/AdvReac Type Severity Reaction Status Date / Time latex Allergy Itching Verified 08/08/21 20:56 lithium AdvReac Vomiting Verified 08/08/21 20:56 pregabalin [From Lyrica] AdvReac Vomiting Verified 08/08/21 20:56 topiramate [From Topamax] AdvReac Abdominal Verified 08/08/21 20:56 Pain Physical Exam Vitals: Vital Signs Temp Pulse Pulse Resp BP BP Pulse Ox 08/09/21 09:02 97.9 F 70 16 156/90 95 08/09/21 08:35 84 18 138/86 99 08/09/21 01:41 98.1 F 77 20 145/86 99 08/08/21 23:18 97.7 F 86 139/88 99 08/08/21 20:56 98.1 F 105 H 20 136/81 98 Intake and Output 08/08/21 08/09/21 08/09/21 22:59 06:59 14:59 Intake Total 240 Balance 240 Intake: Oral 240 Other: Weight 142.882 kg 142.882 kg Constitutional: No acute distress, conversant, pleasant Eyes:Anicteric sclerae, moist conjunctiva, no lid-lag, PERRLA, ENMT: Oropharynx clear, no erythema, exudates Neck: Supple, FROM, no masses, or JVD, No carotid bruits, No thyromegaly Lungs: Clear to auscultation, Clear to percussion, Normal respiratory effort, no accessory muscle use Cardiovascular: Heart regular in rate and rhythm, No murmurs, gallops, or rubs, No peripheral edema Abdominal: Soft, Nontender, no guarding, rebound or rigidity, Normoactive bowel sounds, No hepatomegaly, No splenomegaly, No palpable mass Skin: Bilateral erythematous patches in the LEs. No obvious purulance. Skin is fragile and scaly. No subcutaneous nodules, No rash, lesions, No ulcers Extremities: No digital cyanosis, No clubbing, Pedal pulses intact and symmetrical, Radial pulses intact and symmetrical, No calf tenderness Psychiatric: Alert and oriented to person, place and time, appropriate affect, intact judgement Neuro: Muscles Strength 5/5 in all 4 extremities, Sensation to light touch grossly present throughout, Cranial nerves II-XII grossly intact, no focal sensory deficits Results CBC & Chem 7: 08/08/21 22:57 08/08/21 22:57 Labs: Abnormal Lab Results - Last 24 Hours (Table) 08/08/21 Range/Units 22:57 Sodium 136 L (137-145) mmol/L Glucose 112 H (74-99) mg/dL Thrombosis Risk Factor Assmnt - Choose All That Apply Each Factor Represents 1 point: Age 41-60 years Thrombosis Risk Factor Assessment Total Risk Factor Score: 1 Thrombosis Risk Factor Assessment Level: Low Risk Assessment and Plan Plan: Cellulitis right leg , failed outpatient therapy Follow up cultures vancomycin pain control with opioids elevate leg blood work unremarkable vital signs stable , no fever chronic conditions hypertension , resume home med morbid obesity COPD, Fibromyalgia, GERD/Reflux, Hypertension, Osteoarthritis (OA), All stable resume meds full code hepairn sc tid for dvt ppx Admit to inpatient anticipated length of stay > 2 midnights
[2021-08-09] MEDS ORDERED: HEPARIN SODIUM,PORCINE 5,000 UNIT/ML 1 ML VIAL SQ SCH (11:15)
[2021-08-09] MEDS: busPIRone HCl 10 MG TAB PO SCH ×3 (11:27→22:12)
[2021-08-09] MEDS: cloNIDine HCL 0.2 MG TAB PO SCH ×2 (11:27→20:00)
[2021-08-09] MEDS: HYDROcodone/APAP 5-325MG 1 EACH TAB PO PRN ×2 (11:33→20:00)
[2021-08-09] MEDS: HEPARIN SODIUM,PORCINE/PF 5,000 UNIT/0.5 ML SYRINGE SQ SCH ×3 (12:06→22:12)
[2021-08-09] MEDS ORDERED: HYDROmorphone 0.5 MG/0.5 ML SYRINGE IVP STA (12:59)
[2021-08-09] MEDS: VANCOMYCIN 2,000 MG in SODIUM CHLORIDE 0.9% 500 ML 500 ML IVPB SCH (19:53)
[2021-08-10] MEDS: HYDROcodone/APAP 5-325MG 1 EACH TAB PO PRN (06:09)
[2021-08-10] MEDS: HEPARIN SODIUM,PORCINE/PF 5,000 UNIT/0.5 ML SYRINGE SQ SCH ×3 (08:47→21:27)
[2021-08-10] MEDS: VANCOMYCIN 2,000 MG in SODIUM CHLORIDE 0.9% 500 ML 500 ML IVPB SCH ×2 (08:47→21:26)
[2021-08-10] MEDS: GABAPENTIN 400 MG CAP PO SCH ×3 (08:48→21:26)
[2021-08-10] MEDS: busPIRone HCl 10 MG TAB PO SCH ×3 (08:48→21:26)
[2021-08-10] MEDS: POTASSIUM CHLORIDE ER 10 MEQ TAB.ER.PRT PO SCH (08:48)
[2021-08-10] MEDS: cloNIDine HCL 0.2 MG TAB PO SCH ×2 (08:48→21:26)
[2021-08-10] MEDS: DULoxetine HCL 60 MG CAPSULE.DR PO SCH ×2 (08:48→21:26)
[2021-08-10] MEDS: FUROSEMIDE 20 MG TAB PO SCH (08:49)
[2021-08-10] MEDS: ALBUTEROL HFA INHALER INHALATION PRN ×4 (09:11→20:20)
[2021-08-10] MEDS: Cariprazine Hcl [Vraylar] PO SCH (09:27)
[2021-08-10] MEDS: SODIUM CHLORIDE 0.9% 1,000 ML IV SCH (09:53)
[2021-08-10 11:35] LABS: African American GFR (CKD) 127.8 (60.0-200.0); Non-African American GFR(CKD) 110.3 (60.0-200.0)
[2021-08-10] MEDS ORDERED: traMADol 50 MG TAB PO PRN (12:45)
--- NOTE | 2021-08-10 12:55 | P.PN ---
Subjective Progress Note Date: 08/10/21 Principal diagnosis: Bilateral cellulitis The patient is a morbidly obese female with a history of MRSA cellulitis of the lower extremities. The patient is currently on vancomycin she continues to report pain and increased swelling of her lower extremities. Objective - Vital Signs Vital signs: Vital Signs Temp 98 F 08/10/21 07:00 Pulse 80 08/10/21 07:00 Resp 18 08/10/21 08:50 BP 139/89 08/10/21 07:00 Pulse Ox 92 L 08/10/21 07:00 FiO2 Intake & Output 08/09/21 08/10/21 08/10/21 18:59 06:59 18:59 Intake Total 360 120 Balance 360 120 Weight 142.882 kg Intake: Oral 360 120 Other: # Voids 1 1 - Constitutional General appearance: Present: morbidly obese - Respiratory Respiratory: bilateral: CTA - Cardiovascular Rhythm: regular - Gastrointestinal General gastrointestinal: Present: normal bowel sounds - Integumentary Integumentary: Present: cellulitis (bilateral erythema and warmth ) - Psychiatric Psychiatric: Present: appropriate affect - Labs CBC & Chem 7: 08/08/21 22:57 08/10/21 07:12 Labs: Microbiology - Last 24 Hours (Table) 08/09/21 11:44 Gram Stain - Preliminary Leg - Left Wound Culture - Preliminary 08/08/21 23:23 Blood Culture - Preliminary Blood No Growth after 24 hours 08/08/21 23:13 Blood Culture - Preliminary Blood No Growth after 24 hours Assessment and Plan (1) Cellulitis Narrative/Plan: Patient states wrapping her legs to improve her edema has worked in the past. Will order bilateral wrapping of the legs. Continue vancomycin, patient's also states that the morphine does not help her pain relief of those [place]. We will discontinue Zocor and Ultram which has worked for her in the past. Will order Dilaudid IV when necessary Current Visit: No Status: Acute Code(s): L03.90 - CELLULITIS, UNSPECIFIED SNOMED Code(s): 625499981 (2) Depression Current Visit: No Status: Acute Code(s): F32.9 - MAJOR DEPRESSIVE DISORDER, SINGLE EPISODE, UNSPECIFIED SNOMED Code(s): 35517943 Plan: Continue IV vancomycin, monitor lites, elevate legs, neuropathy legs patient also advised to follow-up with lymphedema clinic discharge
[2021-08-10] MEDS: HYDROmorphone 0.5 MG/0.5 ML SYRINGE IVP PRN (14:46)
[2021-08-11] MEDS: SODIUM CHLORIDE 0.9% 1,000 ML IV SCH ×2 (02:21→16:03)
[2021-08-11] MEDS: HYDROmorphone 0.5 MG/0.5 ML SYRINGE IVP PRN (06:23)
[2021-08-11] MEDS ORDERED: VANCOMYCIN TROUGH DUE 1 EACH MISC MISCELLANE ONE (07:00)
[2021-08-11] MEDS: VANCOMYCIN 2,000 MG in SODIUM CHLORIDE 0.9% 500 ML 500 ML IVPB SCH ×2 (07:34→22:10)
[2021-08-11] MEDS: Cariprazine Hcl [Vraylar] PO SCH (07:40)
[2021-08-11] MEDS: ALBUTEROL HFA INHALER INHALATION PRN ×2 (08:21→15:14)
[2021-08-11] MEDS: POTASSIUM CHLORIDE ER 10 MEQ TAB.ER.PRT PO SCH (08:30)
[2021-08-11] MEDS: FUROSEMIDE 20 MG TAB PO SCH (08:30)
[2021-08-11] MEDS: cloNIDine HCL 0.2 MG TAB PO SCH ×2 (08:30→20:18)
[2021-08-11] MEDS: busPIRone HCl 10 MG TAB PO SCH ×3 (08:30→20:18)
[2021-08-11] MEDS: DULoxetine HCL 60 MG CAPSULE.DR PO SCH ×2 (08:30→20:18)
[2021-08-11] MEDS: GABAPENTIN 400 MG CAP PO SCH ×3 (08:30→20:17)
[2021-08-11] MEDS: HEPARIN SODIUM,PORCINE/PF 5,000 UNIT/0.5 ML SYRINGE SQ SCH ×3 (08:30→20:16)
--- NOTE | 2021-08-11 08:42 | P.PN ---
Subjective Progress Note Date: 08/11/21 45-year-old female with history of chronic bilateral legs lymphedema, asthma, COPD, fibromyalgia, GERD/Reflux, hypertension, osteoarthritis, peripheral neuropathy in the feet/legs and hands, bulging discs, chronic low back pain, recurrent MRA cellulitis bilateral lower legs presented to the ER due to worsening areas of redness, pain and swelling in the lower extremities. Patient has had 5 documented MRSA infections in the last 3 years. She is concerned that she may be developing another infection in the legs. Last admission for this was this past April. Denied fevers or chills, no n/v/d. No cp or sob. She not sure if she bumped her legs somewhere. She does currently follow with a wound clinic. She is also concerned that she may have COVID, states that a couple of days ago her family tested positive and she has associated headaches, body aches, and fatigue. 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 Subjective Patient seen and evaluated at bedside, today patient does not report any worsening of his breathing or report any new significant chest pain. Patient remains in no acute distress. Patient questions and concerns addressed at bedside, proper counseling done. Plan discussed with nursing staff. Objective General: non toxic, no acute distress, alert oriented to time place and person Head: atraumatic, normocephalic, symmetric Eyes: no lid lesion], anicteric sclera Mouth: no lip lesion, mucus membranes moist Cardiovascular: S1S2 reg rate and rhythm, no murmur, no gallop Lungs: Bilateral equal air entry, no wheezing no rhonchi no crackles. Abdominal: soft, nontender to palpation, no guarding, no appreciable organomegaly Ext: Bilateral lower extremity with chronic lymphedema, right lower extremity has erythema spreading from LAD to the dorsum of the foot no drainage noticed Neuro: Alert oriented to time place and person, exam grossly nonfocal Psych: Mood and affect appropriate, patient not so certain Skin exam: See exam above under extremities Assessment and plan Cellulitis right leg , failed outpatient therapy Follow up cultures Continue vancomycin for now Continue careful diuresis Patient does not improve consider infection disease evaluation Hypertension Continue clonidine, Lasix History of anxiety Continue BuSpar on Cymbalta Chronic lymphedema Continue Lasix Recommend follow-up with lymphedema clinic Morbid obesity Encourage weight-loss lifestyle modifications CODE STATUS: Full code DVT prophylaxis: Subcutaneous heparin Discharge plan: Back to home, pending clinical improvement Objective - Vital Signs Vital signs: Vital Signs Temp 98.0 F 08/11/21 07:00 Pulse 72 08/11/21 07:00 Resp 24 08/11/21 07:00 BP 176/120 08/11/21 07:00 Pulse Ox 92 L 08/11/21 07:00 FiO2 Intake & Output 08/10/21 08/11/21 08/11/21 18:59 06:59 18:59 Intake Total 360 Balance 360 Intake: Oral 360 Other: Voiding Method Toilet # Voids 2 2 - Labs CBC & Chem 7: 08/11/21 06:22 08/11/21 06:22 Labs: Microbiology - Last 24 Hours (Table) 08/08/21 23:23 Blood Culture - Preliminary Blood No Growth after 48 hours 08/08/21 23:13 Blood Culture - Preliminary Blood No Growth after 48 hours 08/09/21 11:44 Gram Stain - Preliminary Leg - Left Wound Culture - Preliminary
[2021-08-11 09:18] LABS: Basophils # (A) 0.03 X 10*3/uL (0.00-0.10); Basophils % (A) 0.5 %; Eosinophils % (A) 1.6 %; HCT 45.5 % (37.2-46.3); HGB 14.5 g/dL (12.0-15.0); Immature Grans, Automated 0.3 %; Lymphocytes # (A) 1.15 X 10*3/uL (0.90-5.00); Lymphocytes % (A) 18.2 %; MCH 30.3 pg (27.0-32.0); MCHC 31.9 g/dL (32.0-37.0); Mean Platelet Volume 9.8 fL (9.5-12.2); Monocytes # (A) 0.68 X 10*3/uL (0.20-1.00); Monocytes % (A) 10.8 %; NRBC Per 100 WBC 0 /100 WBCS (0.0-0.0); Neutrophils # (A) 4.33 X 10*3/uL (1.80-7.70); Neutrophils % (A) 68.6 %; Platelet Count 165 X 10*3/uL (140-440); RBC 4.79 X 10*6/uL (4.10-5.20); WBC 6.31 X 10*3/uL (4.50-10.00)
[2021-08-11 09:33] LABS: BUN/Creat Ratio 7.29 Ratio (12.00-20.00); Blood Urea Nitrogen 5.1 mg/dL (9.0-27.0); Calcium 8.7 mg/dL (8.7-10.3); Non-African American GFR(CKD) 106.1 (60.0-200.0)
[2021-08-11] MEDS ORDERED: hydrALAZINE HCL 25 MG TAB PO STA (11:09)
[2021-08-12] MEDS: SODIUM CHLORIDE 0.9% 1,000 ML IV SCH ×2 (05:58→16:05)
[2021-08-12 07:24] LABS: African American GFR (CKD) >90 (>60 ml/min/1.73 sqM); Non-African American GFR(CKD) >90 (>60 ml/min/1.73 sqM)
[2021-08-12] MEDS: VANCOMYCIN 2,000 MG in SODIUM CHLORIDE 0.9% 500 ML 500 ML IVPB SCH (08:09)
[2021-08-12] MEDS: busPIRone HCl 10 MG TAB PO SCH ×3 (08:10→21:20)
[2021-08-12] MEDS: DULoxetine HCL 60 MG CAPSULE.DR PO SCH ×2 (08:10→20:09)
[2021-08-12] MEDS: FUROSEMIDE 20 MG TAB PO SCH (08:10)
[2021-08-12] MEDS: cloNIDine HCL 0.2 MG TAB PO SCH ×2 (08:10→20:09)
[2021-08-12] MEDS: GABAPENTIN 400 MG CAP PO SCH ×3 (08:11→21:20)
[2021-08-12] MEDS: HEPARIN SODIUM,PORCINE/PF 5,000 UNIT/0.5 ML SYRINGE SQ SCH ×3 (08:11→20:09)
[2021-08-12] MEDS: POTASSIUM CHLORIDE ER 10 MEQ TAB.ER.PRT PO SCH (08:11)
[2021-08-12] MEDS: Cariprazine Hcl [Vraylar] PO SCH (08:48)
[2021-08-12] MEDS: ALBUTEROL HFA INHALER INHALATION PRN ×3 (09:48→15:47)
--- NOTE | 2021-08-12 23:10 | P.CONS ---
History of Present Illness - Reason for Consult Consult date: 08/12/21 Recurrent lower extremity cellulitis Requesting physician: Dawn Dela Cruz - Chief Complaint Bilateral extremity swelling and redness x few days - History of Present Illness Patient is a 45-year-old female presenting to the ER 4 days ago on 08/08/2021 for evaluation of weakness fatigue and bilateral lower extremity swelling or redness patient mention previous history of MRSA infection patient on presentation to the hospital was afebrile and no fever have been recorded subsequently patient did have a normal white count with no left shift kidney function has been normal within the normal, PCR was negative patient has been treated with the vancomycin infectious disease was consulted for further management of antibiotic therapy, patient denies having any fever or any chills, patient complaining of diffuse swelling to the lower extremity with no blister or open wound or any drainage and did have overall improvement in the redness, patient was complaining of some dull aching pain to the leg on presentation to the hospital 4 days ago intensity that was about 6-7 out of 10 however subsequently had improved Review of Systems Positive point has been mentioned in the HPI rest of the systems are negative Past Medical History Past Medical History: Asthma, COPD, Fibromyalgia, GERD/Reflux, Hypertension, Musculoskeletal Disorder, Osteoarthritis (OA), Rheumatoid Arthritis (RA) Additional Past Medical History / Comment(s): Neuropathy feet/legs and hands, bulging discs, chronic low back pain, DDD. History of Any Multi-Drug Resistant Organisms: MRSA Year Discovered:: 05/05/21 MDRO Source:: MRSA LEG Past Surgical History: Hysterectomy, Orthopedic Surgery, Tubal Ligation Additional Past Surgical History / Comment(s): Right knee arthroscopic surg x3; LEEP procedure, partial hysterectomy 2009/ovaries intact, colonoscopy 2013, Past Anesthesia/Blood Transfusion Reactions: No Reported Reaction Past Psychological History: Anxiety, Bipolar, Depression Smoking Status: Current every day smoker Past Alcohol Use History: Occasional Past Drug Use History: None Reported - Past Family History Mother Family Medical History: Cancer, Hypertension Additional Family Medical History / Comment(s): neuropathy; Mother had Colon Cancer Father Family Medical History: No Reported History Additional Family Medical History / Comment(s): Father is bipolar Medications and Allergies Home Medications Medication Instructions Recorded Confirmed Type Cariprazine HCl [Vraylar] 3 mg PO DAILY 05/04/21 08/09/21 History DULoxetine HCL [Cymbalta] 60 mg PO BID 05/04/21 08/09/21 History Furosemide [Lasix] 20 mg PO DAILY 05/04/21 08/09/21 History Gabapentin 800 mg PO TID PRN 05/04/21 08/09/21 History Potassium Chloride ER [K-Dur 10] 10 meq PO DAILY 05/04/21 08/09/21 History busPIRone HCL [Buspar] 30 mg PO TID 05/04/21 08/09/21 History Albuterol Inhaler [Ventolin Hfa 2 puff INHALATION RT-QID PRN #8 gm 07/20/21 08/09/21 Rx Inhaler] cloNIDine HCL [Catapres] 0.1 mg PO BID 08/09/21 08/09/21 History Cephalexin [Keflex] 500 mg PO QID 10 Days #40 cap 08/13/21 Rx Allergies Allergy/AdvReac Type Severity Reaction Status Date / Time latex Allergy Itching Verified 08/09/21 11:55 lithium AdvReac Vomiting Verified 08/09/21 11:55 pregabalin [From Lyrica] AdvReac Vomiting Verified 08/09/21 11:55 topiramate [From Topamax] AdvReac Abdominal Verified 08/09/21 11:55 Pain Physical Exam Vitals: Vital Signs Temp Pulse Resp BP BP Pulse Ox 08/12/21 07:00 97.8 F 69 16 174/96 97 08/12/21 00:19 97.8 F 68 20 172/101 94 L 08/11/21 20:00 86 19 08/11/21 19:19 98.7 F 86 19 183/109 95 08/11/21 15:00 98.6 F 96 24 140/89 95 Intake and Output 08/11/21 08/12/21 08/12/21 22:59 06:59 14:59 Intake Total 118 Balance 118 Intake: Oral 118 Other: Voiding Method Toilet # Voids 3 2 GENERAL DESCRIPTION: Middle-aged female lying in bed, no distress. No tachypnea or accessory muscle of respiration use. HEENT: Shows Pallor , no scleral icterus. Oral mucous membrane is dry. No pharyngeal erythema or thrush NECK: Trachea central, no thyromegaly. LUNGS: Unlabored breathing. Clear to auscultation anteriorly. No wheeze or crackle. HEART: S1, S2, regular rate and rhythm. No loud murmur ABDOMEN: Soft, no tenderness , guarding or rigidity, no organomegaly EXTREMITIES: Bilateral extremity for swelling some redness slightly warm to paramjit ch no open wound or any drainage SKIN: No rash, no masses palpable. NEUROLOGICAL: The patient is awake, alert, oriented x3, mood and affect normal. Results CBC & Chem 7: 08/13/21 06:11 08/13/21 06:11 Labs: Microbiology - Last 24 Hours (Table) 08/08/21 23:23 Blood Culture - Preliminary Blood No Growth after 72 hours 08/08/21 23:13 Blood Culture - Preliminary Blood No Growth after 72 hours 08/09/21 11:44 Gram Stain - Final Leg - Left Wound Culture - Final Assessment and Plan (1) Cellulitis Status: Acute Code(s): L03.90 - CELLULITIS, UNSPECIFIED SNOMED Code(s): 304735979 Plan: 1patient presented to hospital with increasing pain swelling redness of bilateral lower extremity in this patient did have diffuse swelling redness more likely streptococcal disease clinic not behaving as MRSA or gram-negative infection. 2discontinue vancomycin. 3start the patient cefazolin 2 g every 8 hours and if the patient continues to improve finish therapy with oral Keflex. 4-swelling is likely risk factor for recurrent cellulitis and control of swelling with compression stocking will help prevent recurrence cellulitis We will follow on clinical condition and cultures to further adjust medication if needed Thank you for this consultation will follow this patient along with you Time with Patient: Less than 30
[2021-08-13] MEDS: SODIUM CHLORIDE 0.9% 1,000 ML IV SCH (00:40)
[2021-08-13] MEDS: ALBUTEROL HFA INHALER INHALATION PRN (07:19)
[2021-08-13 07:29] VITALS: RESP 16
[2021-08-13] MEDS: Cariprazine Hcl [Vraylar] PO SCH (08:42)
[2021-08-13] MEDS: busPIRone HCl 10 MG TAB PO SCH (08:42)
[2021-08-13] MEDS: cloNIDine HCL 0.2 MG TAB PO SCH (08:43)
[2021-08-13] MEDS: POTASSIUM CHLORIDE ER 10 MEQ TAB.ER.PRT PO SCH (08:43)
[2021-08-13] MEDS: DULoxetine HCL 60 MG CAPSULE.DR PO SCH (08:43)
[2021-08-13] MEDS: HEPARIN SODIUM,PORCINE/PF 5,000 UNIT/0.5 ML SYRINGE SQ SCH (08:43)
[2021-08-13] MEDS: FUROSEMIDE 20 MG TAB PO SCH (08:43)
[2021-08-13] MEDS: GABAPENTIN 400 MG CAP PO SCH (08:45)
[2021-08-13 09:10] LABS: Basophils # (A) 0.05 X 10*3/uL (0.00-0.10); Basophils % (A) 0.8 %; Eosinophils # (A) 0.34 X 10*3/uL (0.04-0.35); Eosinophils % (A) 5.5 %; HGB 14.9 g/dL (12.0-15.0); Immature Grans, Automated 0.6 %; Lymphocytes # (A) 1.94 X 10*3/uL (0.90-5.00); Lymphocytes % (A) 31.4 %; MCH 29.6 pg (27.0-32.0); MCV 95.4 fL (80.0-97.0); Mean Platelet Volume 10.4 fL (9.5-12.2); NRBC Per 100 WBC 0 /100 WBCS (0.0-0.0); Neutrophils % (A) 48.7 %; Platelet Count 171 X 10*3/uL (140-440); RBC 5.03 X 10*6/uL (4.10-5.20); RDW 13.6 % (11.5-14.5); WBC 6.17 X 10*3/uL (4.50-10.00)
[2021-08-13 09:50] LABS: African American GFR (CKD) 123.8 (60.0-200.0); Anion Gap 13.2 mmol/L (10.00-18.00); BUN/Creat Ratio 16.33 Ratio (12.00-20.00); Blood Urea Nitrogen 11.2 mg/dL (9.0-27.0); Calcium 8.7 mg/dL (8.7-10.3); Carbon Dioxide 22.7 mmol/L (20.0-27.5); Non-African American GFR(CKD) 106.8 (60.0-200.0); Potassium 4.5 mmol/L (3.5-5.5)
--- NOTE | 2021-08-13 11:21 | P.PN ---
Subjective Progress Note Date: 08/12/21 45-year-old female with history of chronic bilateral legs lymphedema, asthma, COPD, fibromyalgia, GERD/Reflux, hypertension, osteoarthritis, peripheral neuropathy in the feet/legs and hands, bulging discs, chronic low back pain, recurrent MRA cellulitis bilateral lower legs presented to the ER due to worsening areas of redness, pain and swelling in the lower extremities. Patient has had 5 documented MRSA infections in the last 3 years. She is concerned that she may be developing another infection in the legs. Last admission for this was this past April. Denied fevers or chills, no n/v/d. No cp or sob. She not sure if she bumped her legs somewhere. She does currently follow with a wound clinic. She is also concerned that she may have COVID, states that a couple of days ago her family tested positive and she has associated headaches, body aches, and fatigue. 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 Interval history: Patient was examined at the bedside. She denies any chest pain or shortness breath. Still complaining of redness and pain in the right lower extremity. Otherwise no acute changes reported overnight Physical exam: General: non toxic, no acute distress, alert oriented to time place and person Head: atraumatic, normocephalic, symmetric Eyes: no lid lesion], anicteric sclera Mouth: no lip lesion, mucus membranes moist Cardiovascular: S1S2 reg rate and rhythm, no murmur, no gallop Lungs: Bilateral equal air entry, no wheezing no rhonchi no crackles. Abdominal: soft, nontender to palpation, no guarding, no appreciable o rganomegaly Ext: Bilateral lower extremity with chronic lymphedema, right lower extremity has erythema spreading from LAD to the dorsum of the foot no drainage noticed Neuro: Alert oriented to time place and person, exam grossly nonfocal Psych: Mood and affect appropriate, patient not so certain Skin exam: See exam above under extremities Assessment and plan Cellulitis right leg , failed outpatient therapy Follow up cultures Continue vancomycin for now Continue careful diuresis Patient does not improve consider infection disease evaluation Infectious disease consulted Hypertension Continue clonidine, Lasix History of anxiety Continue BuSpar on Cymbalta Chronic lymphedema Continue Lasix Recommend follow-up with lymphedema clinic Morbid obesity Encourage weight-loss lifestyle modifications CODE STATUS: Full code DVT prophylaxis: Subcutaneous heparin Discharge plan: Back to home, pending clinical improvement Objective - Vital Signs Vital signs: Vital Signs Temp 97.9 F 08/13/21 07:10 Pulse 82 08/13/21 07:10 Resp 16 08/13/21 07:10 BP 152/92 08/13/21 07:10 Pulse Ox 97 08/13/21 07:10 FiO2 Intake & Output 08/12/21 08/13/21 08/13/21 18:59 06:59 18:59 Intake Total 476 240 Balance 476 240 Intake: Oral 476 240 Other: Voiding Method Toilet # Voids 3 1 # Bowel Movements 1 - Labs CBC & Chem 7: 08/13/21 06:11 08/13/21 06:11 Labs: Abnormal Lab Results - Last 24 Hours (Table) 08/13/21 Range/Units 06:11 Hct 48.0 H (37.2-46.3) % MCHC 31.0 L (32.0-37.0) g/dL Microbiology - Last 24 Hours (Table) 08/08/21 23:23 Blood Culture - Preliminary Blood No Growth after 96 hours 08/08/21 23:13 Blood Culture - Preliminary Blood No Growth after 96 hours
--- NOTE | 2021-08-13 13:38 | P.DS ---
Providers Date of admission: 08/09/21 06:52 Expected date of discharge: 08/13/21 Attending physician: Mirella Celestin MD Consults: 08/12/21 10:18 Consult Physician Routine Consulting Provider: Yvonne York Consult Reason/Comments: recurrent lower ext cellulitis Do you want consulting provider notified?: Yes Primary care physician: [facility] Course: 45-year-old female with history of chronic bilateral legs lymphedema, asthma, COPD, fibromyalgia, GERD/Reflux, hypertension, osteoarthritis, peripheral neuropathy in the feet/legs and hands, bulging discs, chronic low back pain, recurrent MRA cellulitis bilateral lower legs presented to the ER due to worsening areas of redness, pain and swelling in the lower extremities. Patient has had 5 documented MRSA infections in the last 3 years. She is concerned that she may be developing another infection in the legs. Last admission for this was this past April. Denied fevers or chills, no n/v/d. No cp or sob. She not sure if she bumped her legs somewhere. She does currently follow with a wound clinic. She is also concerned that she may have COVID, states that a couple of days ago her family tested positive and she has associated headaches, body aches, and fatigue. 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 Physical exam on discharge General: non toxic, no acute distress, alert oriented to time place and person Head: atraumatic, normocephalic, symmetric Eyes: no lid lesion], anicteric sclera Mouth: no lip lesion, mucus membranes moist Cardiovascular: S1S2 reg rate and rhythm, no murmur, no gallop Lungs: Bilateral equal air entry, no wheezing no rhonchi no crackles. Abdominal: soft, nontender to palpation, no guarding, no appreciable organomegaly Ext: Bilateral lower extremity with chronic lymphedema, improving bilateral lower extremity cellulitis Neuro: Alert oriented to time place and person, exam grossly nonfocal Psych: Mood and affect appropriate, patient not so certain Skin exam: See exam above under extremities Detailed problem list: Bilateral lower extremity cellulitis , failed outpatient therapy Blood culture negative to date Vancomycin discontinued by infectious disease Patient start IV cefazolin with improvement in her symptoms. Infectious disease cleared the patient for discharge to home on by mouth Keflex Continue careful diuresis Hypertension Continue clonidine, Lasix History of anxiety Continue BuSpar on Cymbalta Chronic lymphedema Continue Lasix Recommend follow-up with lymphedema clinic Morbid obesity Encourage weight-loss lifestyle modifications Time spent in discharge process 34 minutes Patient Condition at Discharge: Stable Plan - Discharge Summary New Discharge Prescriptions: Continue Potassium Chloride ER [K-Dur 10] 10 meq PO DAILY Gabapentin 800 mg PO TID PRN PRN Reason: Pain busPIRone HCL [Buspar] 30 mg PO TID Furosemide [Lasix] 20 mg PO DAILY DULoxetine HCL [Cymbalta] 60 mg PO BID Albuterol Inhaler [Ventolin Hfa Inhaler] 2 puff INHALATION RT-QID PRN #8 gm PRN Reason: Shortness Of Breath Cephalexin [Keflex] 500 mg PO QID 10 Days #40 cap Cariprazine HCl [Vraylar] 3 mg PO DAILY cloNIDine HCL [Catapres] 0.1 mg PO BID Discontinued Sulfamethox-Tmp 800-160Mg [Bactrim DS 800-160 mg] 1 tab PO BID Discharge Medication List Cariprazine HCl [Vraylar] 3 mg PO DAILY 05/04/21 [History] DULoxetine HCL [Cymbalta] 60 mg PO BID 05/04/21 [History] Furosemide [Lasix] 20 mg PO DAILY 05/04/21 [History] Gabapentin 800 mg PO TID PRN 05/04/21 [History] Potassium Chloride ER [K-Dur 10] 10 meq PO DAILY 05/04/21 [History] busPIRone HCL [Buspar] 30 mg PO TID 05/04/21 [History] Albuterol Inhaler [Ventolin Hfa Inhaler] 2 puff INHALATION RT-QID PRN #8 gm 07/20/21 [Rx] cloNIDine HCL [Catapres] 0.1 mg PO BID 08/09/21 [History] Cephalexin [Keflex] 500 mg PO QID 10 Days #40 cap 08/13/21 [Rx] Follow up Appointment(s)/Referral(s): Thomas Bhat MD [Primary Care Provider] - 1-2 days Discharge Disposition: HOME SELF-CARE
[2021-08-13 14:39] VITALS: BP 154/91; PULSE 83; TEMP 98.2
--- NOTE | 2021-08-13 18:10 | P.PN ---
Subjective Progress Note Date: 08/13/21 Principal diagnosis: Bilateral lower extremity cellulitis Patient is a 45-year-old morbidly obese, presented to hospital with increasing swelling redness of bilateral lower extremity and has been diagnosed with a bilateral lower extremity cellulitis. On today's evaluation that is 08/13/2021, the patient denies having any fever or ages, the patient is feeling better breathing comfortably on room air. No chest pain shortness of breath or cough no abdominal pain overall swelling or redness to the bilateral lower extremity has decreased intensity Objective - Vital Signs Vital signs: Vital Signs Temp 97.9 F 08/13/21 07:10 Pulse 82 08/13/21 07:10 Resp 16 08/13/21 07:10 BP 152/92 08/13/21 07:10 Pulse Ox 97 08/13/21 07:10 FiO2 Intake & Output 08/12/21 08/13/21 08/13/21 18:59 06:59 18:59 Intake Total 476 240 Balance 476 240 Intake: Oral 476 240 Other: Voiding Method Toilet # Voids 3 1 # Bowel Movements 1 - Exam GENERAL DESCRIPTION: A middle-age female up in bed in no distress RESPIRATORY SYSTEM: Unlabored breathing , decreased breath sounds at bases HEART: S1 S2 regular rate and rhythm , ABDOMEN: Soft , no tenderness EXTREMITIES: Diffuse swelling to both lower extremity however the redness almost resolved no open wound or any drainage - Labs CBC & Chem 7: 08/13/21 06:11 08/13/21 06:11 Labs: Abnormal Lab Results - Last 24 Hours (Table) 08/12/21 08/13/21 Range/Units 06:07 06:11 Hct 48.0 H (37.2-46.3) % MCHC 31.0 L (32.0-37.0) g/dL C-Reactive Protein 8.2 H (<1.0) mg/dL Microbiology - Last 24 Hours (Table) 08/08/21 23:23 Blood Culture - Preliminary Blood No Growth after 96 hours 08/08/21 23:13 Blood Culture - Preliminary Blood No Growth after 96 hours Assessment and Plan (1) Cellulitis of right lower extremity Status: Acute Code(s): L03.115 - CELLULITIS OF RIGHT LOWER LIMB SNOMED Code(s): 138557135 Plan: 1patient presented to hospital with increasing pain swelling redness of bilateral lower extremity in this patient did have diffuse swelling redness more likely streptococcal disease clinic not behaving as MRSA or gram-negative infection. 2patient seemed to continue to improve with cefazolin 2 g every 8 hours and will finish therapy with oral Keflex. 7 days on discharge and close outpatient follow-up Time with Patient: Less than 30
== END 2021-08-13 14:48 | disposition home or self-care (01) ==
LOC: EC 20:21 → 6NMEDSUR 08-09 06:52
PROVIDERS: ADMIT Internal Medicine; ATTEND Internal Medicine
DX: L03.115 Cellulitis of right lower limb (principal); L03.116 Cellulitis of left lower limb; I10 Essential (primary) hypertension; F41.9 Anxiety disorder, unspecified; I89.0 Lymphedema, not elsewhere classified; E66.01 Morbid (severe) obesity due to excess calories; Z68.43 Body mass index [BMI] 50.0-59.9, adult; R53.1 Weakness; R51.9 Headache, unspecified; Z20.822 Contact with and (suspected) exposure to COVID-19; J44.9 Chronic obstructive pulmonary disease, unspecified; K21.9 Gastro-esophageal reflux disease without esophagitis; M19.90 Unspecified osteoarthritis, unspecified site; M79.7 Fibromyalgia; G89.29 Other chronic pain; M54.50 Low back pain, unspecified; G62.9 Polyneuropathy, unspecified; M79.89 Other specified soft tissue disorders; Z86.14 Personal history of Methicillin resistant Staphylococcus aureus infection; R60.9 Edema, unspecified; F31.9 Bipolar disorder, unspecified; M06.9 Rheumatoid arthritis, unspecified; F17.200 Nicotine dependence, unspecified, uncomplicated; Z71.9 Counseling, unspecified; Z90.711 Acquired absence of uterus with remaining cervical stump; Z79.899 Other long term (current) drug therapy; Z91.040 Latex allergy status; Z88.8 Allergy status to other drugs, medicaments and biological substances; Z80.0 Family history of malignant neoplasm of digestive organs; Z82.49 Family history of ischemic heart disease and other diseases of the circulatory system
CPT/HCPCS: 96376 ×3; 96361 ×2; 96366 ×5; 96367; 96372 ×5; 96365; 96375; 99284; 36415; 94640 ×6; 83880; 80053; 80048 ×2; 82565 ×2; 83605; 85025 ×3; 80202; 86140 ×2; 87040 ×2; 87070; 87205; 87635; G0378 ×5; J3370 ×4; J0690 ×2; J1650; J1170 ×4; J1644 ×5

== ENCOUNTER 2021-09-08 13:51 | Emergency (ER) | payer MEDICARE, OTHER ==
[2021-09-08 17:21] VITALS: BP 142/118; PULSE 84; RESP 18; TEMP 98.5
--- NOTE | 2021-09-08 18:30 | ED ---
General Adult HPI - General Chief complaint: Headache Stated complaint: NVD/Bodyaches Time Seen by Provider: 09/08/21 15:46 Source: patient, RN notes reviewed Mode of arrival: ambulatory Limitations: no limitations - History of Present Illness Initial comments: Patient is a 45-year-old female presents to the emergency room with complaints of headache, nausea, vomiting, diarrhea, body aches and known COVID exposure. She reports that her symptoms have been ongoing for 48 hours. She denies any chest pain, shortness of breath, home temperature monitoring, cough or neurological deficits. She denies any known exposure to flu. She denies any other complaints or concerns at this time. She has past medical history significant for asthma, COPD, hypertension, degenerative disc disease, osteoarthritis, GERD, fibromyalgia and obesity. She reports taking her medications as prescribed without any missed doses. - Related Data Home Medications Medication Instructions Recorded Confirmed Cariprazine HCl [Vraylar] 3 mg PO DAILY 05/04/21 08/09/21 DULoxetine HCL [Cymbalta] 60 mg PO BID 05/04/21 08/09/21 Furosemide [Lasix] 20 mg PO DAILY 05/04/21 08/09/21 Gabapentin 800 mg PO TID PRN 05/04/21 08/09/21 Potassium Chloride ER [K-Dur 10] 10 meq PO DAILY 05/04/21 08/09/21 busPIRone HCL [Buspar] 30 mg PO TID 05/04/21 08/09/21 cloNIDine HCL [Catapres] 0.1 mg PO BID 08/09/21 08/09/21 Previous Rx's Medication Instructions Recorded Albuterol Inhaler [Ventolin Hfa 2 puff INHALATION RT-QID PRN #8 gm 07/20/21 Inhaler] Cephalexin [Keflex] 500 mg PO QID 10 Days #40 cap 08/13/21 Ondansetron Odt [Zofran Odt] 4 mg PO Q8HR PRN 7 Days #21 tab 09/08/21 Allergies Allergy/AdvReac Type Severity Reaction Status Date / Time latex Allergy Itching Verified 09/08/21 14:25 lithium AdvReac Vomiting Verified 09/08/21 14:25 pregabalin [From Lyrica] AdvReac Vomiting Verified 09/08/21 14:25 topiramate [From Topamax] AdvReac Abdominal Verified 09/08/21 14:25 Pain Review of Systems ROS Statement: Those systems with pertinent positive or pertinent negative responses have been documented in the HPI. ROS Other: All systems not noted in ROS Statement are negative. Past Medical History Past Medical History: Asthma, COPD, Fibromyalgia, GERD/Reflux, Hypertension, Musculoskeletal Disorder, Osteoarthritis (OA), Rheumatoid Arthritis (RA) Additional Past Medical History / Comment(s): Neuropathy feet/legs and hands, bulging discs, chronic low back pain, DDD. History of Any Multi-Drug Resistant Organisms: MRSA Date of last positivie culture/infection: 05/05/21 MDRO Source:: MRSA LEG Past Surgical History: Hysterectomy, Orthopedic Surgery, Tubal Ligation Additional Past Surgical History / Comment(s): Right knee arthroscopic surg x3; LEEP procedure, partial hysterectomy 2009/ovaries intact, colonoscopy 2013, Past Anesthesia/Blood Transfusion Reactions: No Reported Reaction Past Psychological History: Anxiety, Bipolar, Depression Smoking Status: Current every day smoker Past Alcohol Use History: Occasional Past Drug Use History: None Reported - Past Family History Mother Family Medical History: Cancer, Hypertension Additional Family Medical History / Comment(s): neuropathy; Mother had Colon Cancer Father Family Medical History: No Reported History Additional Family Medical History / Comment(s): Father is bipolar General Exam Limitations: no limitations General appearance: alert, in no apparent distress Head exam: Present: atraumatic, normocephalic, normal inspection Eye exam: Present: normal appearance, PERRL, EOMI. Absent: scleral icterus, conjunctival injection, periorbital swelling ENT exam: Present: normal exam, mucous membranes moist Neck exam: Present: normal inspection. Absent: tenderness, meningismus, lymphadenopathy Respiratory exam: Present: normal lung sounds bilaterally. Absent: respiratory distress, wheezes, rales, rhonchi, stridor Cardiovascular Exam: Present: regular rate, normal rhythm, normal heart sounds. Absent: systolic murmur, diastolic murmur, rubs, gallop, clicks GI/Abdominal exam: Present: soft, normal bowel sounds. Absent: distended, tenderness, guarding, rebound, rigid Extremities exam: Present: normal inspection, full ROM, normal capillary refill. Absent: tenderness, pedal edema, joint swelling, calf tenderness Back exam: Present: normal inspection Neurological exam: Present: alert, oriented X3, CN II-XII intact Psychiatric exam: Present: normal affect, normal mood Skin exam: Present: warm, dry, intact, normal color. Absent: rash Course Vital Signs 09/08/21 09/08/21 14:22 17:18 Temperature 97.7 F 98.5 F Pulse Rate 82 84 Respiratory 20 18 Rate Blood Pressure 162/103 142/118 O2 Sat by Pulse 97 Oximetry Medical Decision Making - Medical Decision Making No indication for diagnostic imaging at this time. COVID and influenza swabs to be obtained. Headache mild without without any aura or neurological deficits; denies analgesic need. No severe nausea or vomiting at this time; she denies any antiemetic needs at this time. Will await results of COVID and influenza swabs and monitor for emesis prior to drawing laboratory studies. COVID and influenza swabs both negative. Patient eating without any episodes of nausea or vomiting. No indication for further laboratory studies. Will discharge patient home with Zofran she utilize as needed if nausea recurs. Encouraged good hydration. Case discussed with Dr. Casas. - Lab Data Lab Results 09/08/21 09/08/21 Range/Units 14:27 16:43 Coronavirus (PCR) Not Detected (Not Detectd) Influenza Type A RNA Not Detected (Not Detectd) Influenza Type B (PCR) Not Detected (Not Detectd) Disposition Clinical Impression: Gastroenteritis, Headache Disposition: HOME SELF-CARE Condition: Stable Instructions (If sedation given, give patient instructions): Gastroenteritis (ED) Additional Instructions: Your COVID and influenza swabs were negative today however it is recommend staying quarantine for an additional 24-48 hours until symptoms improve. Good hydration encouraged. May use ibuprofen or Tylenol [id number] as needed for pain. Utilize prescribed Zofran as needed for nausea. Avoid caffeinated products. Please return to the Emergency Department if symptoms worsen or any other concerns. Prescriptions: Ondansetron Odt [Zofran Odt] 4 mg PO Q8HR PRN 7 Days #21 tab PRN Reason: Nausea Is patient prescribed a controlled substance at d/c from ED?: No Referrals: Thomas Bhat MD [Primary Care Provider] - 1-2 days Time of Disposition: 18:44
== END 2021-09-08 18:50 | disposition home or self-care (01) ==
LOC: EC 13:51
DX: J44.9 Chronic obstructive pulmonary disease, unspecified (principal); R51.9 Headache, unspecified; K52.9 Noninfective gastroenteritis and colitis, unspecified; I10 Essential (primary) hypertension; F17.200 Nicotine dependence, unspecified, uncomplicated; Z20.822 Contact with and (suspected) exposure to COVID-19; Z91.040 Latex allergy status; Z88.8 Allergy status to other drugs, medicaments and biological substances
CPT/HCPCS: 87502; 87635; 99284

== ENCOUNTER 2022-01-19 23:32 | Emergency (ER) | payer MEDICARE, OTHER ==
[2022-01-19 23:37] VITALS: BP 165/108; PULSE 91; RESP 24; TEMP 97.8
--- NOTE | 2022-01-20 01:02 | ED ---
General Adult HPI - General Chief complaint: Wound/Laceration Stated complaint: Left Leg Wound Time Seen by Provider: 01/20/22 00:50 Source: patient, RN notes reviewed Mode of arrival: ambulatory Limitations: no limitations - History of Present Illness Initial comments: Patient presents to the emergency room with an irritated wound to the posterior aspect of her left calf. Patient states is been there for several weeks. Patient was seen at [facility] and took Keflex and Bactrim DS. Patient states that this did not cleared up. Patient does have a history of lymphedema and obesity. Patient states the skin is very sensitive to touch. Denies any injury. No fever. No headache, no fever or chills, no changes in vision or hearing, no sore throat or difficulty with speech, no neck pain, no chest pain or shortness of breath, no abdominal pain, no nausea or vomiting, no changes in urination or bowel movements, no numbness or tingling, , no skin rashes or lesions. Past medical, surgical, social, and family history reviewed. - Related Data Home Medications Medication Instructions Recorded Confirmed Cariprazine HCl [Vraylar] 3 mg PO DAILY 05/04/21 08/09/21 DULoxetine HCL [Cymbalta] 60 mg PO BID 05/04/21 08/09/21 Furosemide [Lasix] 20 mg PO DAILY 05/04/21 08/09/21 Gabapentin 800 mg PO TID PRN 05/04/21 08/09/21 Potassium Chloride ER [K-Dur 10] 10 meq PO DAILY 05/04/21 08/09/21 busPIRone HCL [Buspar] 30 mg PO TID 05/04/21 08/09/21 cloNIDine HCL [Catapres] 0.1 mg PO BID 08/09/21 08/09/21 Previous Rx's Medication Instructions Recorded Albuterol Inhaler [Ventolin Hfa 2 puff INHALATION RT-QID PRN #8 gm 07/20/21 Inhaler] Cephalexin [Keflex] 500 mg PO QID 10 Days #40 cap 08/13/21 Ondansetron Odt [Zofran Odt] 4 mg PO Q8HR PRN 7 Days #21 tab 09/08/21 Acetaminophen Tab [Tylenol Tab] 500 mg PO Q6H PRN #24 tablet 01/20/22 Clindamycin [Cleocin] 450 mg PO Q8H #90 capsule 01/20/22 Naproxen [Naprosyn] 375 mg PO Q12HR PRN #20 tablet 01/20/22 Allergies Allergy/AdvReac Type Severity Reaction Status Date / Time latex Allergy Itching Verified 01/19/22 23:34 lithium AdvReac Vomiting Verified 01/19/22 23:34 pregabalin [From Lyrica] AdvReac Vomiting Verified 01/19/22 23:34 topiramate [From Topamax] AdvReac Abdominal Verified 01/19/22 23:34 Pain Review of Systems ROS Statement: Those systems with pertinent positive or pertinent negative responses have been documented in the HPI. ROS Other: All systems not noted in ROS Statement are negative. Past Medical History Past Medical History: Asthma, COPD, Fibromyalgia, GERD/Reflux, Hypertension, Musculoskeletal Disorder, Osteoarthritis (OA), Rheumatoid Arthritis (RA) Additional Past Medical History / Comment(s): Neuropathy feet/legs and hands, bulging discs, chronic low back pain, DDD. History of Any Multi-Drug Resistant Organisms: MRSA Date of last positivie culture/infection: 05/05/21 MDRO Source:: MRSA LEG Past Surgical History: Hysterectomy, Orthopedic Surgery, Tubal Ligation Additional Past Surgical History / Comment(s): Right knee arthroscopic surg x3; LEEP procedure, partial hysterectomy 2009/ovaries intact, colonoscopy 2013, Past Anesthesia/Blood Transfusion Reactions: No Reported Reaction Past Psychological History: Anxiety, Bipolar, Depression Smoking Status: Current every day smoker Past Alcohol Use History: Occasional Past Drug Use History: None Reported - Past Family History Mother Family Medical History: Cancer, Hypertension Additional Family Medical History / Comment(s): neuropathy; Mother had Colon Cancer Father Family Medical History: No Reported History Additional Family Medical History / Comment(s): Father is bipolar General Exam - General Exam Comments Initial Comments: Patient does not appear to be ill or toxic. Blood pressure is elevated. No fever. Capillary refill less than 2 seconds. No mottling Limitations: no limitations General appearance: alert, obese Head exam: Present: atraumatic, normocephalic, normal inspection Eye exam: Present: normal appearance, PERRL, EOMI. Absent: scleral icterus, conjunctival injection, periorbital swelling ENT exam: Present: normal exam, normal oropharynx, mucous membranes moist, normal external ear exam. Absent: mucous membranes dry Neck exam: Present: normal inspection, full ROM. Absent: tenderness, me ningismus, lymphadenopathy Respiratory exam: Present: normal lung sounds bilaterally. Absent: respiratory distress, wheezes, rales, rhonchi, stridor, chest wall tenderness, accessory muscle use, decreased breath sounds, prolonged expiratory Cardiovascular Exam: Present: regular rate, normal rhythm, normal heart sounds. Absent: systolic murmur, diastolic murmur, rubs, gallop, clicks GI/Abdominal exam: Present: soft, normal bowel sounds. Absent: distended, tenderness, guarding, rebound, rigid Extremities exam: Present: full ROM, normal capillary refill, pedal edema (Bilateral). Absent: tenderness, joint swelling, calf tenderness Left Lower Leg exam: Present: tenderness (Superficial skin only). Absent: swelling, abrasion, laceration, ecchymosis, deformity, crepitus, dislocation, erythema (No definitive erythema or calor. Patient does have what appears to be of poor healing ulceration to the posterior aspect of her left calf area.) Foot/Toe exam: Present: normal inspection, full ROM. Absent: tenderness, swelling, abrasion, laceration, ecchymosis, deformity, crepitus, dislocation Neurovascular tendon exam: Present: no vascular compromise. Absent: pulse deficit, abnormal cap refill, motor deficit, pallor Back exam: Present: normal inspection Neurological exam: Present: alert, oriented X3, CN II-XII intact Psychiatric exam: Present: normal affect, normal mood Skin exam: Present: warm, dry, intact, normal color. Absent: rash Course Vital Signs 01/19/22 23:34 Temperature 97.8 F Pulse Rate 91 Respiratory 24 Rate Blood Pressure 165/108 O2 Sat by Pulse 100 Oximetry Medical Decision Making - Medical Decision Making Patient presented with a skin ulceration to the posterior aspect of her left lower leg. Total Loesser's and she has a similar lesion on the posterior aspect of her right lower leg. Patient has morbid obesity. Patient states the area has been irritated for about 2 months. There was no definitive active infection although I'm going to cover the patient with antibiotics as she does have some break in skin integrity with serous discharge. Patient has a history of MRSA. We'll have the patient take clindamycin 450 mg 3 times a day until she can see her regular physician. I did give the patient information for wound care clinic. Patient's laboratory workup was essentially normal. Lactic acid normal. I did culture the affected area both aerobically and anaerobically. Patient's presentation was not consistent with DVT. Not consistent with vascula r insult otherwise. Plain film x-ray of the left tibia/fibula reveals no significant acute pathology by my interpretation. Awaiting radiology interpretation. Supervising physician Dr. Hernandez - Lab Data Result diagrams: 01/20/22 01:42 01/20/22 01:42 Lab Results 01/20/22 01/20/22 01/20/22 Range/Units 01:42 01:42 01:42 WBC 8.6 (3.8-10.6) k/uL RBC 4.84 (3.80-5.40) m/uL Hgb 14.9 (11.4-16.0) gm/dL Hct 44.5 (34.0-46.0) % MCV 92.0 (80.0-100.0) fL MCH 30.8 (25.0-35.0) pg MCHC 33.5 (31.0-37.0) g/dL RDW 13.5 (11.5-15.5) % Plt Count 195 (150-450) k/uL MPV 8.1 Neutrophils % 59 % Lymphocytes % 26 % Monocytes % 6 % Eosinophils % 5 % Basophils % 1 % Neutrophils # 5.0 (1.3-7.7) k/uL Lymphocytes # 2.2 (1.0-4.8) k/uL Monocytes # 0.5 (0-1.0) k/uL Eosinophils # 0.5 (0-0.7) k/uL Basophils # 0.1 (0-0.2) k/uL Sodium 135 L (137-145) mmol/L Potassium 4.9 (3.5-5.1) mmol/L Chloride 107 (98-107) mmol/L Carbon Dioxide 22 (22-30) mmol/L Anion Gap 6 mmol/L BUN 16 (7-17) mg/dL Creatinine 0.64 (0.52-1.04) mg/dL Est GFR (CKD-EPI)AfAm >90 (>60 ml/min/1.73 sqM) Est GFR (CKD-EPI)NonAf >90 (>60 ml/min/1.73 sqM) Glucose 115 H (74-99) mg/dL Plasma Lactic Acid Alessio 1.5 (0.7-2.0) mmol/L Calcium 8.8 (8.4-10.2) mg/dL Total Bilirubin 1.0 (0.2-1.3) mg/dL AST 52 H (14-36) U/L ALT 28 (4-34) U/L Alkaline Phosphatase 66 (38-126) U/L Total Protein 7.4 (6.3-8.2) g/dL Albumin 3.9 (3.5-5.0) g/dL - Radiology Data Radiology results: pending, image reviewed Disposition Clinical Impression: Cellulitis of left leg without foot, Elevated blood pressure reading Disposition: HOME SELF-CARE Condition: Stable Instructions (If sedation given, give patient instructions): Cellulitis (ED), Hypertension (ED) Additional Instructions: Take antibiotics as directed. Stop the Neosporin. You can cover with a thin layer of Vaseline for irritation. Follow-up with your regular doctor. You may need to see wound care. Follow-up with your regular physician as directed. Return to the ER immediately if any symptoms worsen, new symptoms arise, or any other problems develop. Make an appointment with wound care clinic: [facility] - [address] [address] Get Directions PHONE Prescriptions: Clindamycin [Cleocin] 450 mg PO Q8H #90 capsule Naproxen [Naprosyn] 375 mg PO Q12HR PRN #20 tablet PRN Reason: Pain Acetaminophen Tab [Tylenol Tab] 500 mg PO Q6H PRN #24 tablet PRN Reason: Pain Is patient prescribed a controlled substance at d/c from ED?: No Referrals: Thomas Bhat MD [Primary Care Provider] - 1-2 days Time of Disposition: 02:24
[2022-01-20 01:51] LABS: Basophils # (A) 0.1 k/uL (0-0.2); Basophils % (A) 1 %; Eosinophils # (A) 0.5 k/uL (0-0.7); Eosinophils % (A) 5 %; HCT 44.5 % (34.0-46.0); HGB 14.9 gm/dL (11.4-16.0); Lymphocytes # (A) 2.2 k/uL (1.0-4.8); Lymphocytes % (A) 26 %; MCH 30.8 pg (25.0-35.0); MCHC 33.5 g/dL (31.0-37.0); Mean Platelet Volume 8.1; Monocytes # (A) 0.5 k/uL (0-1.0); Monocytes % (A) 6 %; Neutrophils % (A) 59 %; Platelet Count 195 k/uL (150-450); RBC 4.84 m/uL (3.80-5.40); RDW 13.5 % (11.5-15.5); WBC 8.6 k/uL (3.8-10.6)
[2022-01-20 02:01] LABS: ALT 28 U/L (4-34); AST 52 U/L (14-36); African American GFR (CKD) >90 (>60 ml/min/1.73 sqM); Albumin 3.9 g/dL (3.5-5.0); Alkaline Phosphatase 66 U/L (38-126); Anion Gap 6 mmol/L; Blood Urea Nitrogen 16 mg/dL (7-17); Calcium 8.8 mg/dL (8.4-10.2); Carbon Dioxide 22 mmol/L (22-30); Chloride 107 mmol/L (98-107); Glucose 115 mg/dL (74-99); Non-African American GFR(CKD) >90 (>60 ml/min/1.73 sqM); Sodium 135 mmol/L (137-145); Total Protein 7.4 g/dL (6.3-8.2)
[2022-01-20 02:04] LABS: Potassium 4.9 mmol/L (3.5-5.1)
[2022-01-20] MEDS ORDERED: IBUPROFEN 600 MG TAB PO STA (02:20)
[2022-01-20] MEDS ORDERED: ACETAMINOPHEN TAB 500 MG TAB PO STA (02:20)
[2022-01-20] MEDS ORDERED: CLINDAMYCIN 150 MG CAP PO STA (02:20)
--- NOTE | 2022-01-20 03:12 | XR ---
EXAMINATION TYPE: XR tibia fibula LT DATE OF EXAM: 01/20/2022 COMPARISON: NONE HISTORY: Posterior lower leg sore TECHNIQUE: 4 views FINDINGS: There is moderately severe osteoarthritis in the medial joint space of the knee. There is s purring of the femoral and tibial condyles. Ankle mortise is anatomic. There is plantar and Achilles calcaneal spurring. IMPRESSION: Moderate knee joint osteoarthritis. No fracture. No focal bone destruction. No sign of os teomyelitis. Calcaneal spurring.
== END 2022-01-20 02:44 | disposition home or self-care (01) ==
LOC: EC 23:32
DX: L03.116 Cellulitis of left lower limb (principal); I10 Essential (primary) hypertension; J44.9 Chronic obstructive pulmonary disease, unspecified; M19.90 Unspecified osteoarthritis, unspecified site; M06.9 Rheumatoid arthritis, unspecified; F41.9 Anxiety disorder, unspecified; F31.9 Bipolar disorder, unspecified; F17.200 Nicotine dependence, unspecified, uncomplicated; Z91.040 Latex allergy status; Z91.048 Other nonmedicinal substance allergy status; Z88.8 Allergy status to other drugs, medicaments and biological substances; Z79.899 Other long term (current) drug therapy; X58.XXXA Exposure to other specified factors, initial encounter
CPT/HCPCS: 36415; 80053; 83605; 85025; 99284

== ENCOUNTER 2022-02-04 15:30 | Emergency (ER) | payer MEDICARE, OTHER ==
[2022-02-04 15:34] VITALS: TEMP 97.9
[2022-02-04] MEDS ORDERED: LIDOCAINE 1% INJ 10MG/ML (30 ML VIAL-PF) SQ ONE (16:31)
--- NOTE | 2022-02-04 16:31 | ED ---
Extremity Problem HPI - General Chief complaint: Extremity Problem,Nontraumatic Stated complaint: cyst right foot Time Seen by Provider: 02/04/22 16:10 Source: patient, RN notes reviewed Mode of arrival: ambulatory - History of Present Illness Initial comments: 42-year-old female with significanr past medical history of fibromyalgia presents to the emergency department for abscess. She notes small bump on her right lateral aspect of her right foot that had been there for a few weeks. She notes over the last couple days has increased in size and pain. She does admit to trying to self incise the lesion however it hurt too bad. She has not tried taking any antibiotics for this. Denies trauma or preceding event. She denies numbness, tingling. She does report a recent history of cellulitis but states "It's cured. thats just how my legs always look." Denies hx of diabetes. - Related Data Home Medications Medication Instructions Recorded Confirmed Cariprazine HCl [Vraylar] 3 mg PO DAILY 05/04/21 08/09/21 DULoxetine HCL [Cymbalta] 60 mg PO BID 05/04/21 08/09/21 Furosemide [Lasix] 20 mg PO DAILY 05/04/21 08/09/21 Gabapentin 800 mg PO TID PRN 05/04/21 08/09/21 Potassium Chloride ER [K-Dur 10] 10 meq PO DAILY 05/04/21 08/09/21 busPIRone HCL [Buspar] 30 mg PO TID 05/04/21 08/09/21 cloNIDine HCL [Catapres] 0.1 mg PO BID 08/09/21 08/09/21 Previous Rx's Medication Instructions Recorded Albuterol Inhaler [Ventolin Hfa 2 puff INHALATION RT-QID PRN #8 gm 07/20/21 Inhaler] Cephalexin [Keflex] 500 mg PO QID 10 Days #40 cap 08/13/21 Ondansetron Odt [Zofran Odt] 4 mg PO Q8HR PRN 7 Days #21 tab 09/08/21 Acetaminophen Tab [Tylenol Tab] 500 mg PO Q6H PRN #24 tablet 01/20/22 Clindamycin [Cleocin] 450 mg PO Q8H #90 capsule 01/20/22 Naproxen [Naprosyn] 375 mg PO Q12HR PRN #20 tablet 01/20/22 Cephalexin [Keflex] 500 mg PO Q6HR 7 Days #28 cap 02/04/22 Allergies Allergy/AdvReac Type Severity Reaction Status Date / Time latex Allergy Itching Verified 02/04/22 15:34 lithium AdvReac Vomiting Verified 02/04/22 15:34 pregabalin [From Lyrica] AdvReac Vomiting Verified 02/04/22 15:34 topiramate [From Topamax] AdvReac Abdominal Verified 02/04/22 15:34 Pain Review of Systems ROS Statement: Those systems with pertinent positive or pertinent negative responses have been documented in the HPI. ROS Other: All systems not noted in ROS Statement are negative. Past Medical History Past Medical History: Asthma, COPD, Fibromyalgia, GERD/Reflux, Hypertension, Musculoskeletal Disorder, Osteoarthritis (OA), Rheumatoid Arthritis (RA) Additional Past Medical History / Comment(s): Neuropathy feet/legs and hands, bulging discs, chronic low back pain, DDD. History of Any Multi-Drug Resistant Organisms: MRSA Date of last positivie culture/infection: 05/05/21 MDRO Source:: MRSA LEG Past Surgical History: Hysterectomy, Orthopedic Surgery, Tubal Ligation Additional Past Surgical History / Comment(s): Right knee arthroscopic surg x3; LEEP procedure, partial hysterectomy 2009/ovaries intact, colonoscopy 2013, Past Anesthesia/Blood Transfusion Reactions: No Reported Reaction Past Psychological History: Anxiety, Bipolar, Depression Smoking Status: Current every day smoker Past Alcohol Use History: Occasional Past Drug Use History: None Reported - Past Family History Mother Family Medical History: Cancer, Hypertension Additional Family Medical History / Comment(s): neuropathy; Mother had Colon Cancer Father Family Medical History: No Reported History Additional Family Medical History / Comment(s): Father is bipolar General Exam General appearance: alert, in no apparent distress Head exam: Present: atraumatic, normocephalic, normal inspection Eye exam: Present: normal appearance, PERRL, EOMI. Absent: scleral icterus, conjunctival injection, periorbital swelling ENT exam: Present: normal exam, mucous membranes moist Neck exam: Present: normal inspection. Absent: tenderness, meningismus, lymphadenopathy Respiratory exam: Present: normal lung sounds bilaterally. Absent: respiratory distress, wheezes, rales, rhonchi, stridor Cardiovascular Exam: Present: regular rate, normal rhythm, normal heart sounds. Absent: systolic murmur, diastolic murmur, rubs, gallop, clicks GI/Abdominal exam: Present: soft, normal bowel sounds. Absent: distended, tenderness, guarding, rebound, rigid Extremities exam: Present: normal inspection, full ROM, normal capillary refill. Absent: tenderness, pedal edema, joint swelling, calf tenderness Right Ankle exam: Absent: normal inspection (erythematous and warmth to right ankle) Foot/Toe exam: Present: full ROM, tenderness, swelling (1+ edema ). Absent: n ormal inspection (R lateral dorsal aspect of 5th metatarsal with erythematous, fluctuant, lesion. 2+ DT/PT pulses, Distal NVI, no crepitis. ) Back exam: Present: normal inspection Neurological exam: Present: alert, oriented X3, CN II-XII intact Psychiatric exam: Present: normal affect Skin exam: Present: warm, dry, intact, normal color. Absent: rash Course Vital Signs 02/04/22 15:31 Temperature 97.9 F Pulse Rate 84 Respiratory 16 Rate Blood Pressure 203/104 O2 Sat by Pulse 98 Oximetry Medical Decision Making - Medical Decision Making 46-year-old female presenting to the emergency department for her right foot abscess. Pt was seen and evaluated in the emergency department, physical exam reveals a normal fluctuate to the lateral aspect of the 5th metatarsal region of the foot. Pt had incision and drainage procedure, the wound was fully explored and copiously irrigated. I interpreted the following result: R foot Xray remarkable for soft tissue mass without evidence osteomyelitis or free gas. Labwork was unremarkle. Pt was discharged in stable condition with a prescription for Keflex. Pt encouraged to follow up with Dr. Ureña, Animal Shelter Manager. Case discussed with Dr. Duron who agrees with plan for discharge. - Lab Data Result diagrams: 02/04/22 17:13 02/04/22 17:13 Lab Results 02/04/22 02/04/22 Range/Units 17:13 17:13 WBC 7.6 (3.8-10.6) k/uL RBC 5.04 (3.80-5.40) m/uL Hgb 15.4 (11.4-16.0) gm/dL Hct 46.4 H (34.0-46.0) % MCV 92.0 (80.0-100.0) fL MCH 30.6 (25.0-35.0) pg MCHC 33.2 (31.0-37.0) g/dL RDW 13.8 (11.5-15.5) % Plt Count 143 L (150-450) k/uL MPV 10.3 Neutrophils % 57 % Lymphocytes % 29 % Monocytes % 6 % Eosinophils % 4 % Basophils % 1 % Neutrophils # 4.3 (1.3-7.7) k/uL Lymphocytes # 2.2 (1.0-4.8) k/uL Monocytes # 0.5 (0-1.0) k/uL Eosinophils # 0.3 (0-0.7) k/uL Basophils # 0.1 (0-0.2) k/uL Sodium 139 (137-145) mmol/L Potassium 3.9 (3.5-5.1) mmol/L Chloride 105 (98-107) mmol/L Carbon Dioxide 28 (22-30) mmol/L Anion Gap 6 mmol/L BUN 12 (7-17) mg/dL Creatinine 0.70 (0.52-1.04) mg/dL Est GFR (CKD-EPI)AfAm >90 (>60 ml/min/1.73 sqM) Est GFR (CKD-EPI)NonAf >90 (>60 ml/min/1.73 sqM) Glucose 103 H (74-99) mg/dL Calcium 8.8 (8.4-10.2) mg/dL Total Bilirubin 0.4 (0.2-1.3) mg/dL AST 23 (14-36) U/L ALT 28 (4-34) U/L Alkaline Phosphatase 91 (38-126) U/L C-Reactive Protein 1.5 H (<1.0) mg/dL Total Protein 7.2 (6.3-8.2) g/dL Albumin 3.9 (3.5-5.0) g/dL Disposition Clinical Impression: Ganglion cyst, Abscess Disposition: HOME SELF-CARE Condition: Stable Instructions (If sedation given, give patient instructions): Abscess (ED) Additional Instructions: Please return to the nearest ED if worsening symptoms of fever, numbness, tingling Prescriptions: Cephalexin [Keflex] 500 mg PO Q6HR 7 Days #28 cap Is patient prescribed a controlled substance at d/c from ED?: No Referrals: Thomas Bhat MD [Primary Care Provider] - 1-2 days Melo Ureña DPM [STAFF PHYSICIAN] - 1-2 days Time of Disposition: 18:39
--- NOTE | 2022-02-04 17:51 | XR ---
EXAMINATION TYPE: XR foot complete RT DATE OF EXAM: 02/04/2022 5:32 PM INDICATION: Patient age:Female; 46 years old; Reason for study: r foot pain; COMPARISON: 12/16/2018 TECHNIQUE: The right foot was examined in the AP, oblique, and lateral projections. FINDINGS: No evidence of any acute osseous pathology. Joints are preserved. Calcaneal plantar spurring is pres ent. Soft tissue protuberance of the lateral aspect of the midfoot measuring up to 19 mm. No evidence of radiopaque foreign body. IMPRESSION: 1. No evidence of acute fracture. 2. Right lateral foot soft tissue protuberance. No evidence of radiopaque foreign body.
[2022-02-04 17:58] LABS: ALT 28 U/L (4-34); AST 23 U/L (14-36); African American GFR (CKD) >90 (>60 ml/min/1.73 sqM); Albumin 3.9 g/dL (3.5-5.0); Alkaline Phosphatase 91 U/L (38-126); Anion Gap 6 mmol/L; Blood Urea Nitrogen 12 mg/dL (7-17); C Reactive Protein 1.5 mg/dL (<1.0); Calcium 8.8 mg/dL (8.4-10.2); Carbon Dioxide 28 mmol/L (22-30); Chloride 105 mmol/L (98-107); Glucose 103 mg/dL (74-99); Non-African American GFR(CKD) >90 (>60 ml/min/1.73 sqM); Potassium 3.9 mmol/L (3.5-5.1); Sodium 139 mmol/L (137-145); Total Bilirubin 0.4 mg/dL (0.2-1.3); Total Protein 7.2 g/dL (6.3-8.2)
[2022-02-04 18:13] LABS: Basophils # (A) 0.1 k/uL (0-0.2); Basophils % (A) 1 %; Eosinophils # (A) 0.3 k/uL (0-0.7); Eosinophils % (A) 4 %; HCT 46.4 % (34.0-46.0); HGB 15.4 gm/dL (11.4-16.0); Lymphocytes # (A) 2.2 k/uL (1.0-4.8); Lymphocytes % (A) 29 %; MCH 30.6 pg (25.0-35.0); MCHC 33.2 g/dL (31.0-37.0); Mean Platelet Volume 10.3; Monocytes # (A) 0.5 k/uL (0-1.0); Monocytes % (A) 6 %; Neutrophils # (A) 4.3 k/uL (1.3-7.7); Neutrophils % (A) 57 %; Platelet Count 143 k/uL (150-450); RBC 5.04 m/uL (3.80-5.40); RDW 13.8 % (11.5-15.5); WBC 7.6 k/uL (3.8-10.6)
[2022-02-04 18:46] VITALS: BP 179/85; PULSE 87; RESP 22
== END 2022-02-04 18:57 | disposition home or self-care (01) ==
LOC: EC 15:30
DX: M67.471 Ganglion, right ankle and foot (principal); J44.9 Chronic obstructive pulmonary disease, unspecified; I10 Essential (primary) hypertension; F17.200 Nicotine dependence, unspecified, uncomplicated; F41.9 Anxiety disorder, unspecified; F32.A Depression, unspecified; Z90.710 Acquired absence of both cervix and uterus; Z91.040 Latex allergy status; Z88.8 Allergy status to other drugs, medicaments and biological substances; Z79.899 Other long term (current) drug therapy
CPT/HCPCS: 99283 ×2; 10060 ×2; 36415; 80053; 85025; 86140; 73630; J2001

== ENCOUNTER 2022-02-08 14:36 | Inpatient (IN) | payer MEDICARE, OTHER ==
[2022-02-08] MEDS ORDERED: MORPHINE SULFATE 2 MG/ML SYRINGE IVP ONE (15:00)
[2022-02-08] MEDS ORDERED: SODIUM CHLORIDE 0.9% 1,000 ML IV ONE (15:01)
[2022-02-08] MEDS ORDERED: VANCOMYCIN 1,000 MG in SODIUM CHLORIDE 0.9% 250 ML IVPB STA (15:14)
[2022-02-08] MEDS ORDERED: PIPERACILLIN-TAZOBACTAM 3.375 GM in SODIUM CHLORIDE 0.9% 100 ML IVPB STA (15:14)
--- NOTE | 2022-02-08 15:19 | XR ---
EXAMINATION TYPE: XR foot limited RT DATE OF EXAM: 02/08/2022 COMPARISON: NONE HISTORY: Foot pain TECHNIQUE: 2 views FINDINGS: There is soft tissue swelling of the right foot. There is plantar and Achilles calcaneal sp urring. There is more pronounced lateral soft tissue swelling lateral to the base of the fifth metata rsal. No foreign body seen. No focal bone destruction. IMPRESSION: Soft tissue swelling. No focal bone destruction. No fracture.
[2022-02-08] MEDS ORDERED: VANCOMYCIN IV PER PHARMACY 1 EACH MISC MISCELLANE PRN (15:21)
[2022-02-08] MEDS ORDERED: LIDOCAINE 1% INJ 10MG/ML (30 ML VIAL-PF) SQ ONE (15:24)
--- NOTE | 2022-02-08 15:30 | ED ---
General Adult HPI - General Chief complaint: Skin/Abscess/Foreign Body Stated complaint: Sore on R foot Time Seen by Provider: 02/08/22 14:47 Source: patient, RN notes reviewed Mode of arrival: ambulatory Limitations: no limitations - History of Present Illness Initial comments: 46-year-old female presents to the emergency department with chief complaint of abscess. Patient was seen and evaluated in this ED on 02/04/2022 for same where she had an Incision and drainage procedure done and was given keflex for prophylaxis. She reports it was improving, but she went to work and noticed that it was wrapped tightly. She noticed put draining from it last night and this morning she woke up and complains of worsening pain. She denies self excising and admits to taking the abx she was given. Denies fever, chills, numbness, tingling. - Related Data Home Medications Medication Instructions Recorded Confirmed Cariprazine HCl [Vraylar] 3 mg PO DAILY 05/04/21 02/08/22 DULoxetine HCL [Cymbalta] 60 mg PO HS 05/04/21 02/08/22 Furosemide [Lasix] 20 mg PO DAILY 05/04/21 02/08/22 Gabapentin 800 mg PO TID 05/04/21 02/08/22 busPIRone HCL [Buspar] 30 mg PO HS 05/04/21 02/08/22 cloNIDine HCL [Catapres] 0.1 mg PO HS 08/09/21 02/08/22 Previous Rx's Medication Instructions Recorded Cephalexin [Keflex] 500 mg PO Q6HR 7 Days #28 cap 02/04/22 Allergies Allergy/AdvReac Type Severity Reaction Status Date / Time latex Allergy Itching Verified 02/08/22 14:42 lithium AdvReac Vomiting Verified 02/08/22 14:42 pregabalin [From Lyrica] AdvReac Vomiting Verified 02/08/22 14:42 topiramate [From Topamax] AdvReac Abdominal Verified 02/08/22 14:42 Pain Review of Systems ROS Statement: Those systems with pertinent positive or pertinent negative responses have been documented in the HPI. ROS Other: All systems not noted in ROS Statement are negative. Past Medical History Past Medical History: Asthma, COPD, Fibromyalgia, GERD/Reflux, Hypertension, Musculoskeletal Disorder, Osteoarthritis (OA), Rheumatoid Arthritis (RA) Additional Past Medical History / Comment(s): Neuropathy feet/legs and hands, bulging discs, chronic low back pain, DDD. History of Any Multi-Drug Resistant Organisms: MRSA Date of last positivie culture/infection: 05/05/21 MDRO Source:: MRSA LEG Past Surgical History: Hysterectomy, Orthopedic Surgery, Tubal Ligation Additional Past Surgical History / Comment(s): Right knee arthroscopic surg x3; LEEP procedure, partial hysterectomy 2009/ovaries intact, colonoscopy 2013, Past Anesthesia/Blood Transfusion Reactions: No Reported Reaction Past Psychological History: Anxiety, Bipolar, Depression Smoking Status: Current every day smoker Past Alcohol Use History: Occasional Past Drug Use History: None Reported - Past Family History Mother Family Medical History: Cancer, Hypertension Additional Family Medical History / Comment(s): neuropathy; Mother had Colon Cancer Father Family Medical History: No Reported History Additional Family Medical History / Comment(s): Father is bipolar General Exam Limitations: no limitations General appearance: alert, in no apparent distress Head exam: Present: atraumatic, normocephalic, normal inspection Eye exam: Present: normal appearance, PERRL, EOMI. Absent: scleral icterus, conjunctival injection, periorbital swelling ENT exam: Present: normal exam, mucous membranes moist Neck exam: Present: normal inspection. Absent: tenderness, meningismus, lymphadenopathy Respiratory exam: Present: normal lung sounds bilaterally. Absent: respiratory distress, wheezes, rales, rhonchi, stridor Cardiovascular Exam: Present: regular rate, normal rhythm, normal heart sounds. Absent: systolic murmur, diastolic murmur, rubs, gallop, clicks GI/Abdominal exam: Present: soft, normal bowel sounds. Absent: distended, tenderness, guarding, rebound, rigid Extremities exam: Present: normal inspection, full ROM, normal capillary refill. Absent: tenderness, pedal edema, joint swelling, calf tenderness Right Foot/Toe exam: Absent: normal inspection (5th metarsal with significant tenderness, erythema, and purulent pus drainage. NVI and 2+ DT/PT pulses) Back exam: Present: normal inspection Neurological exam: Present: alert, oriented X3, CN II-XII intact Psychiatric exam: Present: normal affect, normal mood Skin exam: Present: warm, dry, intact, normal color. Absent: rash Course Vital Signs 02/08/22 02/08/22 14:40 18:12 Temperature 98.6 F Pulse Rate 97 92 Respiratory 20 18 Rate Blood Pressure 152/92 129/84 O2 Sat by Pulse 99 100 Oximetry Medical Decision Making - Medical Decision Making This is a 46 year old female presenting to the emergency department for an abscess. Patient was seen and evaluated this, physical exam remarkable for abscess to right 5th metatarsal. Lab Work and imaging ordered performed dur ing the course in the ED. I interpreted the following: Lab work reveals WBC 12.3, CRP 8.3. Right foot XR negative for evidence of osteomyelitis or free gas. I discussed the results in detail with the patient. Patient is agreeable with plan for admission. I Discussed the case with Dr. Ng who agrees and accepts the patient for admission. I discussed the case with Dr. Mclaughlin [facility] who agrees with plan for admission. - Lab Data Result diagrams: 02/08/22 15:10 02/08/22 15:10 Lab Results 02/08/22 02/08/22 02/08/22 Range/Units 15:10 15:10 15:10 WBC 13.2 H (3.8-10.6) k/uL RBC 4.55 (3.80-5.40) m/uL Hgb 13.6 (11.4-16.0) gm/dL Hct 41.2 (34.0-46.0) % MCV 90.5 (80.0-100.0) fL MCH 30.0 (25.0-35.0) pg MCHC 33.1 (31.0-37.0) g/dL RDW 13.8 (11.5-15.5) % Plt Count 191 (150-450) k/uL MPV 7.8 Sodium 136 L (137-145) mmol/L Potassium 3.7 (3.5-5.1) mmol/L Chloride 101 (98-107) mmol/L Carbon Dioxide 27 (22-30) mmol/L Anion Gap 8 mmol/L BUN 11 (7-17) mg/dL Creatinine 0.55 (0.52-1.04) mg/dL Est GFR (CKD-EPI)AfAm >90 (>60 ml/min/1.73 sqM) Est GFR (CKD-EPI)NonAf >90 (>60 ml/min/1.73 sqM) Glucose 104 H (74-99) mg/dL Plasma Lactic Acid Alessio 0.9 (0.7-2.0) mmol/L Calcium 8.6 (8.4-10.2) mg/dL Total Bilirubin 0.8 (0.2-1.3) mg/dL AST 19 (14-36) U/L ALT 19 (4-34) U/L Alkaline Phosphatase 102 (38-126) U/L C-Reactive Protein 8.4 H (<1.0) mg/dL Total Protein 7.1 (6.3-8.2) g/dL Albumin 3.6 (3.5-5.0) g/dL Disposition Clinical Impression: Abscess, Cellulitis Disposition: ADMITTED IP TO THIS HOSP Condition: Fair Time of Disposition: 17:35
[2022-02-08 15:56] LABS: HCT 41.2 % (34.0-46.0); HGB 13.6 gm/dL (11.4-16.0); MCHC 33.1 g/dL (31.0-37.0); MCV 90.5 fL (80.0-100.0); Mean Platelet Volume 7.8; Platelet Count 191 k/uL (150-450); RBC 4.55 m/uL (3.80-5.40); RDW 13.8 % (11.5-15.5); WBC 13.2 k/uL (3.8-10.6)
[2022-02-08] MEDS ORDERED: VANCOMYCIN 2,500 MG in SODIUM CHLORIDE 0.9% 500 ML 500 ML IVPB ONE (16:00)
[2022-02-08 16:10] LABS: ALT 19 U/L (4-34); AST 19 U/L (14-36); African American GFR (CKD) >90 (>60 ml/min/1.73 sqM); Albumin 3.6 g/dL (3.5-5.0); Alkaline Phosphatase 102 U/L (38-126); Anion Gap 8 mmol/L; Blood Urea Nitrogen 11 mg/dL (7-17); C Reactive Protein 8.4 mg/dL (<1.0); Calcium 8.6 mg/dL (8.4-10.2); Carbon Dioxide 27 mmol/L (22-30); Chloride 101 mmol/L (98-107); Glucose 104 mg/dL (74-99); Non-African American GFR(CKD) >90 (>60 ml/min/1.73 sqM); Potassium 3.7 mmol/L (3.5-5.1); Sodium 136 mmol/L (137-145); Total Bilirubin 0.8 mg/dL (0.2-1.3); Total Protein 7.1 g/dL (6.3-8.2)
[2022-02-08] MEDS ORDERED: ONDANSETRON 4 MG/2 ML VIAL IVP PRN (16:50)
[2022-02-08] MEDS ORDERED: NALOXONE 0.4 MG/ML 1 ML VIAL IV PRN (16:50)
[2022-02-08] MEDS: SODIUM CHLORIDE 0.9% 1,000 ML IV SCH (18:44)
[2022-02-08] MEDS: MORPHINE SULFATE 4 MG/ML SYRINGE IV PRN ×2 (20:02→23:51)
[2022-02-08] MEDS: DULoxetine HCL 60 MG CAPSULE.DR PO SCH (23:51)
[2022-02-08] MEDS: GABAPENTIN 400 MG CAP PO SCH (23:51)
[2022-02-08] MEDS: busPIRone HCl 10 MG TAB PO SCH (23:51)
[2022-02-08] MEDS: cloNIDine HCL 0.1 MG TAB PO SCH (23:51)
[2022-02-09] MEDS: MORPHINE SULFATE 4 MG/ML SYRINGE IV PRN ×4 (04:02→17:30)
[2022-02-09] MEDS: VANCOMYCIN 2,250 MG in SODIUM CHLORIDE 0.9% 500 ML 500 ML IVPB SCH ×2 (04:14→16:47)
[2022-02-09 09:11] LABS: Basophils # (A) 0.07 X 10*3/uL (0.00-0.10); Basophils % (A) 0.6 %; Eosinophils # (A) 0.28 X 10*3/uL (0.04-0.35); Eosinophils % (A) 2.4 %; HGB 13.3 g/dL (12.0-15.0); Immature Grans, Automated 0.4 %; Lymphocytes # (A) 2.23 X 10*3/uL (0.90-5.00); Lymphocytes % (A) 18.8 %; MCHC 30.9 g/dL (32.0-37.0); MCV 96.8 fL (80.0-97.0); Mean Platelet Volume 10.3 fL (9.5-12.2); Monocytes # (A) 1.19 X 10*3/uL (0.20-1.00); NRBC Per 100 WBC 0 /100 WBCS (0.0-0.0); Neutrophils # (A) 8.05 X 10*3/uL (1.80-7.70); Neutrophils % (A) 67.8 %; Platelet Count 221 X 10*3/uL (140-440); RBC 4.44 X 10*6/uL (4.10-5.20); WBC 11.87 X 10*3/uL (4.50-10.00)
[2022-02-09 09:28] LABS: African American GFR (CKD) 122.1 (60.0-200.0); Anion Gap 13.7 mmol/L (10.00-18.00); BUN/Creat Ratio 12.29 Ratio (12.00-20.00); Blood Urea Nitrogen 8.6 mg/dL (9.0-27.0); Calcium 8.6 mg/dL (8.7-10.3); Carbon Dioxide 21.3 mmol/L (20.0-27.5); Non-African American GFR(CKD) 105.4 (60.0-200.0); Potassium 3.8 mmol/L (3.5-5.5)
[2022-02-09] MEDS: NON FORMULARY DRUG (Cariprazine Hcl [Vraylar] 3 MG Capsule) PO SCH (09:48)
[2022-02-09] MEDS: FUROSEMIDE 20 MG TAB PO SCH (09:49)
[2022-02-09] MEDS: GABAPENTIN 400 MG CAP PO SCH ×3 (09:49→22:01)
--- NOTE | 2022-02-09 14:18 | P.GSCN ---
History of Present Illness History of present illness: 46-year-old white female patient has been admitted through the emergency room with history of 4 axis right foot for the past 2 weeks this patient had a I&D done of the right foot wound for 2121 patient came with the pain and swelling and redness on the dorsal aspect of the foot with abscess formation there is also noted some callus on the plantar aspect no history of trauma exit of the fo ot shows socks tissue swelling no fracture or foreign body seen patient will be scheduled for I&D and debridement and deep culture No history of diabetes patient has history of hypertension obesity no history of coronary artery disease Neck supple no bruit appreciated Chest is clear good and both lungs Abdomen soft nontender Vascular femorals are 1+ bilateral patient has a right foot lateral aspect large abscess some redness noted the dorsal aspect of the foot and also there is some callus formation noted on the plantar aspect Plan is to keep the patient nothing by mouth consent for I&D and wound debridement risk and complication discussed Eschen is an IV antibiotic under care of infectious disease Past Medical History Past Medical History: Asthma, COPD, Fibromyalgia, GERD/Reflux, Hypertension, Musculoskeletal Disorder, Osteoarthritis (OA), Rheumatoid Arthritis (RA) Additional Past Medical History / Comment(s): Neuropathy feet/legs and hands, bulging discs, chronic low back pain, DDD. History of Any Multi-Drug Resistant Organisms: MRSA Year Discovered:: 05/05/21 MDRO Source:: MRSA LEG Past Surgical History: Hysterectomy, Orthopedic Surgery, Tubal Ligation Additional Past Surgical History / Comment(s): Right knee arthroscopic surg x3; LEEP procedure, partial hysterectomy 2009/ovaries intact, colonoscopy 2013, Past Anesthesia/Blood Transfusion Reactions: No Reported Reaction Past Psychological History: Anxiety, Bipolar, Depression Smoking Status: Current every day smoker Past Alcohol Use History: Occasional Past Drug Use History: None Reported - Past Family History Mother Family Medical History: Cancer, Hypertension Additional Family Medical History / Comment(s): neuropathy; Mother had Colon Cancer Father Family Medical History: No Reported History Additional Family Medical History / Comment(s): Father is bipolar Medications and Allergies Home Medications Medication Instructions Recorded Confirmed Type Cariprazine HCl [Vraylar] 3 mg PO DAILY 05/04/21 02/08/22 History DULoxetine HCL [Cymbalta] 60 mg PO HS 05/04/21 02/08/22 History Furosemide [Lasix] 20 mg PO DAILY 05/04/21 02/08/22 History Gabapentin 800 mg PO TID 05/04/21 02/08/22 History busPIRone HCL [Buspar] 30 mg PO HS 05/04/21 02/08/22 History cloNIDine HCL [Catapres] 0.1 mg PO HS 08/09/21 02/08/22 History Cephalexin [Keflex] 500 mg PO Q6HR 7 Days #28 cap 02/04/22 02/08/22 Rx Allergies Allergy/AdvReac Type Severity Reaction Status Date / Time latex Allergy Itching Verified 02/08/22 14:42 lithium AdvReac Vomiting Verified 02/08/22 14:42 pregabalin [From Lyrica] AdvReac Vomiting Verified 02/08/22 14:42 topiramate [From Topamax] AdvReac Abdominal Verified 02/08/22 14:42 Pain Surgical - Exam Vital Signs Temp Pulse Resp BP Pulse Ox 98.6 F 97 20 152/92 99 02/08/22 14:40 02/08/22 14:40 02/08/22 14:40 02/08/22 14:40 02/08/22 14:40 Results - Labs 02/09/22 04:01 02/09/22 04:01 Abnormal Lab Results - Last 24 Hours (Table) 02/08/22 02/08/22 02/09/22 Range/Units 15:10 15:10 04:01 WBC 13.2 H (3.8-10.6) k/uL MCHC (32.0-37.0) g/dL Immature Gran # (0.00-0.04) X 10*3/uL Neutrophils # (1.80-7.70) X 10*3/uL Monocytes # (0.20-1.00) X 10*3/uL Sodium 136 L (137-145) mmol/L BUN 8.6 L (9.0-27.0) mg/dL Glucose 104 H 122 H (74-99) mg/dL Calcium 8.6 L (8.7-10.3) mg/dL C-Reactive Protein 8.4 H (<1.0) mg/dL 02/09/22 Range/Units 04:01 WBC 11.87 H (3.8-10.6) k/uL MCHC 30.9 L (32.0-37.0) g/dL Immature Gran # 0.05 H (0.00-0.04) X 10*3/uL Neutrophils # 8.05 H (1.80-7.70) X 10*3/uL Monocytes # 1.19 H (0.20-1.00) X 10*3/uL Sodium (137-145) mmol/L BUN (9.0-27.0) mg/dL Glucose (74-99) mg/dL Calcium (8.7-10.3) mg/dL C-Reactive Protein (<1.0) mg/dL Microbiology - Last 24 Hours (Table) 02/08/22 17:27 Wound Culture - Preliminary Foot - Right Diabetes panel 02/08/22 02/09/22 Range/Units 15:10 04:01 Sodium 136 L 136 (137-145) mmol/L Potassium 3.7 3.8 (3.5-5.1) mmol/L Chloride 101 101 (98-107) mmol/L Carbon Dioxide 27 21.3 (22-30) mmol/L BUN 11 8.6 L (7-17) mg/dL Creatinine 0.55 0.7 (0.52-1.04) mg/dL Glucose 104 H 122 H (74-99) mg/dL Calcium 8.6 8.6 L (8.4-10.2) mg/dL AST 19 (14-36) U/L ALT 19 (4-34) U/L Alkaline Phosphatase 102 (38-126) U/L Total Protein 7.1 (6.3-8.2) g/dL Albumin 3.6 (3.5-5.0) g/dL Calcium panel 02/08/22 02/09/22 Range/Units 15:10 04:01 Calcium 8.6 8.6 L (8.4-10.2) mg/dL Albumin 3.6 (3.5-5.0) g/dL Pituitary panel 02/08/22 02/09/22 Range/Units 15:10 04:01 Sodium 136 L 136 (137-145) mmol/L Potassium 3.7 3.8 (3.5-5.1) mmol/L Chloride 101 101 (98-107) mmol/L Carbon Dioxide 27 21.3 (22-30) mmol/L BUN 11 8.6 L (7-17) mg/dL Creatinine 0.55 0.7 (0.52-1.04) mg/dL Glucose 104 H 122 H (74-99) mg/dL Calcium 8.6 8.6 L (8.4-10.2) mg/dL Adrenal panel 02/08/22 02/09/22 Range/Units 15:10 04:01 Sodium 136 L 136 (137-145) mmol/L Potassium 3.7 3.8 (3.5-5.1) mmol/L Chloride 101 101 (98-107) mmol/L Carbon Dioxide 27 21.3 (22-30) mmol/L BUN 11 8.6 L (7-17) mg/dL Creatinine 0.55 0.7 (0.52-1.04) mg/dL Glucose 104 H 122 H (74-99) mg/dL Calcium 8.6 8.6 L (8.4-10.2) mg/dL Total Bilirubin 0.8 (0.2-1.3) mg/dL AST 19 (14-36) U/L ALT 19 (4-34) U/L Alkaline Phosphatase 102 (38-126) U/L Total Protein 7.1 (6.3-8.2) g/dL Albumin 3.6 (3.5-5.0) g/dL
[2022-02-09] MEDS: SODIUM CHLORIDE 0.9% 1,000 ML IV SCH (16:51)
[2022-02-09] MEDS ORDERED: IV FLUID CONTINUATION 1,000 ML IV ONE (19:18)
[2022-02-09] MEDS ORDERED: HYDROmorphone 0.5 MG/0.5 ML SYRINGE IVP ONE ×2 (20:54→21:20)
--- NOTE | 2022-02-09 21:10 | P.CONS ---
History of Present Illness - Reason for Consult Consult date: 02/09/22 Right foot abscess Requesting physician: Ernesto Ng - Chief Complaint Right foot pain swelling redness X few days - History of Present Illness Patient is a 46-year-old female with a past medical history significant for hypertension concern for left leg disease rheumatoid arthritis COPD and asthma patient was recently evaluated in the ER on 02/04/2022 for her right foot abscess and the patient did have drainage of the abscess unfortunately no culture was done and the patient was sent home on oral Keflex patient is now presenting back to the hospital for evaluation of increasing pain and swelling redness to the right foot along with some drainage patient described the pain to be throbbing and sharp almost 10 out of 10 in severity with associated swelling and redness and did have some foul-smelling drainage with the symptom the patient has been evaluated by the ER physician on arrival to the ER the patient was afebrile patient however did have a white count of 13.2 with a left shift kidney function has been normal liver enzymes are normal blood cultures obtained which are currently pending no blood cultures are pending as well patient was started on vancomycin infectious disease was consulted for further management of antibiotic therapy Review of Systems Positive point has been mentioned in the HPI rest of the systems are negative Past Medical History Past Medical History: Asthma, COPD, Fibromyalgia, GERD/Reflux, Hypertension, Musculoskeletal Disorder, Osteoarthritis (OA), Rheumatoid Arthritis (RA) Additional Past Medical History / Comment(s): Neuropathy feet/legs and hands, bulging discs, chronic low back pain, DDD. History of Any Multi-Drug Resistant Organisms: MRSA Year Discovered:: 05/05/21 MDRO Source:: MRSA LEG Past Surgical History: Hysterectomy, Orthopedic Surgery, Tubal Ligation Additional Past Surgical History / Comment(s): Right knee arthroscopic surg x3; LEEP procedure, partial hysterectomy 2009/ovaries intact, colonoscopy 2013, Past Anesthesia/Blood Transfusion Reactions: No Reported Reaction Past Psychological History: Anxiety, Bipolar, Depression Smoking Status: Current every day smoker Past Alcohol Use History: Occasional Past Drug Use History: None Reported - Past Family History Mother Family Medical History: Cancer, Hypertension Additional Family Medical History / Comment(s): neuropathy; Mother had Colon Cancer Father Family Medical History: No Reported History Additional Family Medical History / Comment(s): Father is bipolar Medications and Allergies Home Medications Medication Instructions Recorded Confirmed Type Cariprazine HCl [Vraylar] 3 mg PO DAILY 05/04/21 02/08/22 History DULoxetine HCL [Cymbalta] 60 mg PO HS 05/04/21 02/08/22 History Furosemide [Lasix] 20 mg PO DAILY 05/04/21 02/08/22 History Gabapentin 800 mg PO TID 05/04/21 02/08/22 History busPIRone HCL [Buspar] 30 mg PO HS 05/04/21 02/08/22 History cloNIDine HCL [Catapres] 0.1 mg PO HS 08/09/21 02/08/22 History HYDROcodone/APAP 5-325MG [Orwell 1 each PO Q6HR PRN #9 tab 02/13/22 Rx 5-325] Allergies Allergy/AdvReac Type Severity Reaction Status Date / Time latex Allergy Itching Verified 02/08/22 14:42 lithium AdvReac Vomiting Verified 02/08/22 14:42 pregabalin [From Lyrica] AdvReac Vomiting Verified 02/08/22 14:42 topiramate [From Topamax] AdvReac Abdominal Verified 02/08/22 14:42 Pain Physical Exam Vitals: Vital Signs Temp Pulse Pulse Resp BP BP BP 02/09/22 07:00 98.1 F 85 18 121/77 02/09/22 02:36 98.5 F 94 18 120/65 02/08/22 21:00 97.9 F 80 19 127/85 02/08/22 19:08 98.2 F 100 18 173/114 02/08/22 18:12 92 18 129/84 02/08/22 14:40 98.6 F 97 20 152/92 Pulse Ox 02/09/22 07:00 96 02/09/22 02:36 97 02/08/22 21:00 99 02/08/22 19:08 98 02/08/22 18:12 100 02/08/22 14:40 99 Intake and Output 02/08/22 02/09/22 02/09/22 22:59 06:59 14:59 Intake Total 180 Balance 180 Intake: Oral 180 Other: Voiding Method Bedside Commode # Voids 1 3 Weight 158.757 kg GENERAL DESCRIPTION: Middle-aged FEmale lying in bed, no distress. No tachypnea or accessory muscle of respiration use. HEENT: Shows Pallor , no scleral icterus. Oral mucous membrane is dry. No pharyngeal erythema or thrush NECK: Trachea central, no thyromegaly. LUNGS: Unlabored breathing. Clear to auscultation anteriorly. No wheeze or crackle. HEART: S1, S2, regular rate and rhythm. No loud murmur ABDOMEN: Soft, no tenderness , guarding or rigidity, no organomegaly EXTREMITIES: Right foot did have significant swelling redness with a necrotic wound on the lateral border and some foul-smelling drainage. SKIN: No rash, no masses palpable. NEUROLOGICAL: The patient is awake, alert, oriented x3, mood and affect normal. Results CBC & Chem 7: 02/12/22 05:17 02/12/22 05:17 Labs: Abnormal Lab Results - Last 24 Hours (Table) 02/08/22 02/08/22 02/09/22 Range/Units 15:10 15:10 04:01 WBC 13.2 H (3.8-10.6) k/uL MCHC (32.0-37.0) g/dL Immature Gran # (0.00-0.04) X 10*3/uL Neutrophils # (1.80-7.70) X 10*3/uL Monocytes # (0.20-1.00) X 10*3/uL Sodium 136 L (137-145) mmol/L BUN 8.6 L (9.0-27.0) mg/dL Glucose 104 H 122 H (74-99) mg/dL Calcium 8.6 L (8.7-10.3) mg/dL C-Reactive Protein 8.4 H (<1.0) mg/dL 02/09/22 Range/Units 04:01 WBC 11.87 H (3.8-10.6) k/uL MCHC 30.9 L (32.0-37.0) g/dL Immature Gran # 0.05 H (0.00-0.04) X 10*3/uL Neutrophils # 8.05 H (1.80-7.70) X 10*3/uL Monocytes # 1.19 H (0.20-1.00) X 10*3/uL Sodium (137-145) mmol/L BUN (9.0-27.0) mg/dL Glucose (74-99) mg/dL Calcium (8.7-10.3) mg/dL C-Reactive Protein (<1.0) mg/dL Microbiology - Last 24 Hours (Table) 02/08/22 17:27 Wound Culture - Preliminary Foot - Right Assessment and Plan (1) Abscess Status: Acute Code(s): L02.91 - CUTANEOUS ABSCESS, UNSPECIFIED SNOMED Code(s): 603417936 Plan: 1patient presented to hospital with right foot abscess and cellulitis failing outpatient oral Keflex therapy concern for possible community associated MRSA less likely gram-negative infection. 2vascular surgery consult for drainage of the abscess and deep culture. 3vancomycin pharmacy to dose with a target trough of 15 while watching kidney function and Vanco trough closely. And will add cefepime to cover for the gram- negative while waiting for the culture to finalize. We will follow on clinical condition and cultures to further adjust medication if needed Thank you for this consultation we will follow the patient along with you Time with Patient: Greater than 30
[2022-02-09] MEDS ORDERED: KETOROLAC 15 MG/ML 1 ML VIAL IVP ONE (21:18)
[2022-02-09] MEDS ORDERED: ALBUTEROL NEBULIZED 2.5 MG/3 ML INHALATION ONE (21:18)
--- NOTE | 2022-02-09 21:52 | OP ---
OPERATIVE REPORT PREOPERATIVE DIAGNOSIS: Large abscess, right foot lateral aspect with marked redness on the dorsum aspect of the foot. POSTOPERATIVE DIAGNOSES: Large abscess, right foot lateral aspect with marked redness on the dorsum aspect of the foot. Postdebridement measurement is 4 x 4 x 1 cm. PROCEDURES PERFORMED: I and D of the abscess and excision of the necrotic tissue, right foot lateral aspect. DESCRIPTION OF PROCEDURE: This patient has a history of abscess on the right foot. The patient came to the ER last week and had I and D, and the patient was sent home. Today, the patient has been admitted. There was a large abscess on the lateral aspect of the right foot with marked redness on the dorsum aspect of the foot with some drainage. Under general anesthesia, right foot was prepped and draped in appropriate sterile manner. An elliptical incision was made on the lateral aspect of the right foot, deepened through the skin, fat, and fascia down to the subcutaneous tissue, fat, and fascia. There was some necrotic tissue, which was excised with sharp knife all the way down to the bone. All the tissue was sent for deep culture. All the devitalized tissue was excised, and the wound was copiously irrigated with hydrogen peroxide and saline. Hemostasis was well controlled, and excess silver rope was applied to the wound. Dressing was applied. Blood loss was less than 50 mL. The patient tolerated the procedure well and transferred to recovery room in satisfactory condition. ISABEL / NISH: [id number] /
[2022-02-09] MEDS: cloNIDine HCL 0.1 MG TAB PO SCH (22:01)
[2022-02-09] MEDS: DULoxetine HCL 60 MG CAPSULE.DR PO SCH (22:01)
[2022-02-09] MEDS: busPIRone HCl 10 MG TAB PO SCH (22:01)
--- NOTE | 2022-02-09 22:32 | P.HPIM ---
History of Present Illness H&P Date: 02/09/22 Chief Complaint: Right foot abscess Patient is a 46-year-old female with known history of asthma/COPD, fibromyalgia, osteoarthritis, rheumatoid arthritis, biopsy peripheral neuropathy nondiabetic and chronic low back pain, currently everyday smoker, anxiety/depression and bi polar disorder presents to ER with complaints of right foot swelling and pain and purulent drainage. Patient was seen in the ER on 02/04/2022 with a right foot abscess and had I&D done in the ER and was sent home with antibiotics in the form of Keflex. Patient has not been improving and I was having purulent foul-smelling drainage with worsening pain. Patient stated that she was taking antibiotics. Otherwise denied any complaints of fever or chills. No numbness or tingling sensation. No nausea vomiting abdominal area. No chest pain or shortness of breath. On admission T-max was 100.0. X-ray of the foot showed soft tissue swelling. No focal bone destruction. No fracture. Laboratory data showed WC 13.2 hemoglobin 13.6 and platelets 191 sodium 136 potassium 3.7 chloride 101 bicarb is 27 BUN 11 creatinine 0.55 and blood sugar is 104 and CRP 8.4. Liver enzymes are not elevated. Review of Systems Constitutional: Patient denies any fever or chills . no Generalized weakness. Abdomen: Patient denied any nausea or vomiting or abd. pain Cardiovascular: Patient denies any chest pain or short of breath no palpitations. Respiratory: patient denied any cough . no sputum production. No shortness of breath Neurologic: Patient denied any numbness or tingling headache. Musculoskeletal: Patient denies any complaints of joint swelling or deformity. Patient is complaining of right foot pain, abscess and purulent drainage. Skin: Negative Psychiatric: Negative Endocrine: No heat or cold intolerance. No recent weight gain. Genitourinary: No dysuria or hematuria. All other 14 point ROS negative except the above Past Medical History Past Medical History: Asthma, COPD, Fibromyalgia, GERD/Reflux, Hypertension, Musculoskeletal Disorder, Osteoarthritis (OA), Rheumatoid Arthritis (RA) Additional Past Medical History / Comment(s): Neuropathy feet/legs and hands, bulging discs, chronic low back pain, DDD. History of Any Multi-Drug Resistant Organisms: MRSA Date of last positivie culture/infection: 05/05/21 MDRO Source:: MRSA LEG Past Surgical History: Hysterectomy, Orthopedic Surgery, Tubal Ligation Additional Past Surgical History / Comment(s): Right knee arthroscopic surg x3; LEEP procedure, partial hysterectomy 2009/ovaries intact, colonoscopy 2013, Past Anesthesia/Blood Transfusion Reactions: No Reported Reaction Past Psychological History: Anxiety, Bipolar, Depression Smoking Status: Current every day smoker Past Alcohol Use History: Occasional Past Drug Use History: None Reported - Past Family History Mother Family Medical History: Cancer, Hypertension Additional Family Medical History / Comment(s): neuropathy; Mother had Colon Cancer Father Family Medical History: No Reported History Additional Family Medical History / Comment(s): Father is bipolar Medications and Allergies Home Medications Medication Instructions Recorded Confirmed Type Cariprazine HCl [Vraylar] 3 mg PO DAILY 05/04/21 02/08/22 History DULoxetine HCL [Cymbalta] 60 mg PO HS 05/04/21 02/08/22 History Furosemide [Lasix] 20 mg PO DAILY 05/04/21 02/08/22 History Gabapentin 800 mg PO TID 05/04/21 02/08/22 History busPIRone HCL [Buspar] 30 mg PO HS 05/04/21 02/08/22 History cloNIDine HCL [Catapres] 0.1 mg PO HS 08/09/21 02/08/22 History Cephalexin [Keflex] 500 mg PO Q6HR 7 Days #28 cap 02/04/22 02/08/22 Rx Allergies Allergy/AdvReac Type Severity Reaction Status Date / Time latex Allergy Itching Verified 02/08/22 14:42 lithium AdvReac Vomiting Verified 02/08/22 14:42 pregabalin [From Lyrica] AdvReac Vomiting Verified 02/08/22 14:42 topiramate [From Topamax] AdvReac Abdominal Verified 02/08/22 14:42 Pain Physical Exam Vitals: Vital Signs Temp Pulse Pulse Resp BP BP BP 02/09/22 07:00 98.1 F 85 18 121/77 02/09/22 02:36 98.5 F 94 18 120/65 02/08/22 21:00 97.9 F 80 19 127/85 02/08/22 19:08 98.2 F 100 18 173/114 02/08/22 18:12 92 18 129/84 02/08/22 14:40 98.6 F 97 20 152/92 Pulse Ox 02/09/22 07:00 96 02/09/22 02:36 97 02/08/22 21:00 99 02/08/22 19:08 98 02/08/22 18:12 100 02/08/22 14:40 99 Intake and Output 02/08/22 02/09/22 02/09/22 22:59 06:59 14:59 Intake Total 180 Balance 180 Intake: Oral 180 Other: Voiding Method Bedside Commode # Voids 1 3 Weight 158.757 kg PHYSICAL EXAMINATION: Patient is lying in the bed comfortably, no acute distress, awake alert and oriented.. Morbidly obese. HEENT: Normocephalic. Neck is supple. Pupils reactive. Nostrils clear. Oral cavi ty is moist. Neck reveals no JVD, carotid bruits, or thyromegaly. CHEST EXAMINATION: Trachea is central. Symmetrical expansion. Lung garcia clear to auscultation and percussion. CARDIAC: Normal S1, S2 with no gallops. No murmurs ABDOMEN: Soft. Bowel sounds present. Nontender. No organomegaly. No abdominal bruits. Extremities: reveal no edema. No clubbing or cyanosis Neurologically awake, alert, oriented x3 with well-coordinated movements. No focal deficits noted Skin: No rash or skin lesions. Psychiatric: Coperative. Nonsuicidal, Musculoskeletal: No joint swelling or deformity. Right foot swelling and abscess on the lateral side with necrotic tissue and foul-smelling drainage. Results CBC & Chem 7: 02/10/22 06:47 02/10/22 06:47 Labs: Abnormal Lab Results - Last 24 Hours (Table) 02/08/22 02/08/22 02/09/22 Range/Units 15:10 15:10 04:01 WBC 13.2 H (3.8-10.6) k/uL MCHC (32.0-37.0) g/dL Immature Gran # (0.00-0.04) X 10*3/uL Neutrophils # (1.80-7.70) X 10*3/uL Monocytes # (0.20-1.00) X 10*3/uL Sodium 136 L (137-145) mmol/L BUN 8.6 L (9.0-27.0) mg/dL Glucose 104 H 122 H (74-99) mg/dL Calcium 8.6 L (8.7-10.3) mg/dL C-Reactive Protein 8.4 H (<1.0) mg/dL 02/09/22 Range/Units 04:01 WBC 11.87 H (3.8-10.6) k/uL MCHC 30.9 L (32.0-37.0) g/dL Immature Gran # 0.05 H (0.00-0.04) X 10*3/uL Neutrophils # 8.05 H (1.80-7.70) X 10*3/uL Monocytes # 1.19 H (0.20-1.00) X 10*3/uL Sodium (137-145) mmol/L BUN (9.0-27.0) mg/dL Glucose (74-99) mg/dL Calcium (8.7-10.3) mg/dL C-Reactive Protein (<1.0) mg/dL Microbiology - Last 24 Hours (Table) 02/08/22 17:27 Wound Culture - Preliminary Foot - Right Thrombosis Risk Factor Assmnt - DVT/VTE Prophylaxis DVT/VTE Prophylaxis: Pharmacologic Prophylaxis ordered - Choose All That Apply Each Factor Represents 1 point: Age 41-60 years, Obesity (BMI >25) Each Risk Factor Represents 3 Points: Family history of DVT/PE Thrombosis Risk Factor Assessment Total Risk Factor Score: 5 Thrombosis Risk Factor Assessment Level: High Risk Assessment and Plan Assessment: Right lateral foot abscess with surrounding cellulitis and failed outpatient antibiotic therapy. Prior history of MRSA infection Fibromyalgia Hypertension Rheumatoid arthritis Asthma/COPD Currently everyday smoker Anxiety/depression and bipolar disorder DVT prophylaxis with heparin subcu Plan: Patient will be continued on antibiotics in the form of vancomycin. Continued pain management and surgery consult for I&D. Follow-up deep culture report. Follow-up blood cultures. Infectious is consulted. Continue home medications. Smoking cessation has been counseled extensively.. Time with Patient: Greater than 30
[2022-02-10] MEDS: HEPARIN SODIUM,PORCINE/PF 5,000 UNIT/0.5 ML SYRINGE SQ SCH ×3 (00:53→17:08)
[2022-02-10] MEDS: CEFEPIME 2 GM in SODIUM CHLORIDE 0.9% 100 ML IVPB SCH ×2 (00:53→08:50)
[2022-02-10] MEDS: VANCOMYCIN 2,250 MG in SODIUM CHLORIDE 0.9% 500 ML 500 ML IVPB SCH ×2 (05:21→17:10)
[2022-02-10] MEDS: MORPHINE SULFATE 4 MG/ML SYRINGE IV PRN ×4 (05:22→20:18)
[2022-02-10] MEDS: NON FORMULARY DRUG (Cariprazine Hcl [Vraylar] 3 MG Capsule) PO SCH (08:50)
[2022-02-10] MEDS: FUROSEMIDE 20 MG TAB PO SCH (08:51)
[2022-02-10] MEDS: GABAPENTIN 400 MG CAP PO SCH ×3 (08:51→21:32)
[2022-02-10 11:12] LABS: Basophils # (A) 0.07 X 10*3/uL (0.00-0.10); Basophils % (A) 0.8 %; Eosinophils % (A) 3.2 %; HCT 41.1 % (37.2-46.3); HGB 12.6 g/dL (12.0-15.0); Immature Grans, Automated 0.5 %; Lymphocytes # (A) 1.84 X 10*3/uL (0.90-5.00); Lymphocytes % (A) 19.9 %; MCH 29.9 pg (27.0-32.0); MCHC 30.7 g/dL (32.0-37.0); MCV 97.4 fL (80.0-97.0); Mean Platelet Volume 11.3 fL (9.5-12.2); Monocytes # (A) 0.86 X 10*3/uL (0.20-1.00); Monocytes % (A) 9.3 %; NRBC Per 100 WBC 0 /100 WBCS (0.0-0.0); Neutrophils # (A) 6.14 X 10*3/uL (1.80-7.70); Neutrophils % (A) 66.3 %; Platelet Count 149 X 10*3/uL (140-440); RBC 4.22 X 10*6/uL (4.10-5.20); RBC Morphology NORMAL; RDW 14.2 % (11.5-14.5); WBC 9.26 X 10*3/uL (4.50-10.00)
[2022-02-10 11:47] LABS: African American GFR (CKD) 109.5 (60.0-200.0); Anion Gap 15.1 mmol/L (10.00-18.00); BUN/Creat Ratio 12.98 Ratio (12.00-20.00); Blood Urea Nitrogen 9.9 mg/dL (9.0-27.0); Calcium 8.6 mg/dL (8.7-10.3); Carbon Dioxide 19.5 mmol/L (20.0-27.5); Non-African American GFR(CKD) 94.5 (60.0-200.0); Potassium 4.6 mmol/L (3.5-5.5)
--- NOTE | 2022-02-10 16:16 | P.PN ---
Subjective Progress Note Date: 02/10/22 Principal diagnosis: Right foot abscess and cellulitis Patient is a 46-year-old morbidly obese female presenting to the hospital with right foot pain swelling or redness with the diagnoses of the abscess that was initially treated on 02/04/2022 and failed to respond to outpatient oral Keflex patient was evaluated by vascular surgery 02/09/2022 and did have a surgical drainage of the abscess and excision of the necrotic tissue. On today's evaluation that is 02/10/2022, the patient denies having any fever or any chills, patient pain to the right foot has slightly decreased in intensity, patient denies having any chest pain shortness of breath or cough no nausea no vomiting no abdominal pain no diarrhea Objective - Vital Signs Vital signs: Vital Signs Temp 98.0 F 02/10/22 07:45 Pulse 86 02/10/22 07:45 Resp 16 02/10/22 07:45 BP 137/67 02/10/22 07:45 Pulse Ox 95 02/10/22 07:45 FiO2 Intake & Output 02/09/22 02/10/22 02/10/22 18:59 06:59 18:59 Intake Total 402 200 Output Total 50 Balance 402 150 Intake: IV 200 Intake, IV Titration 0 Amount Sodium Chloride 0.9% 1, 0 000 ml @ 20 mls/hr IV . Q24H [facility] Rx#:[id number] Oral 402 Output: Estimated Blood Loss 50 Other: Voiding Method Toilet # Voids 1 - Exam GENERAL DESCRIPTION: A middle-age female up in bed in no distress RESPIRATORY SYSTEM: Unlabored breathing , decreased breath sounds at bases HEART: S1 S2 regular rate and rhythm , ABDOMEN: Soft , no tenderness EXTREMITIES: Right foot is currently dressed no drainage on the dressing - Labs CBC & Chem 7: 02/10/22 06:47 02/10/22 06:47 Labs: Microbiology - Last 24 Hours (Table) 02/08/22 17:27 Gram Stain - Preliminary Foot - Right Wound Culture - Preliminary Presumptive MRSA 02/09/22 20:16 Tissue Culture - Preliminary Foot - Right 02/09/22 20:16 Anaerobic Culture - Preliminary Foot - Right 02/08/22 15:30 Blood Culture - Preliminary Blood No Growth after 24 hours 02/08/22 15:10 Blood Culture - Preliminary Blood No Growth after 24 hours Assessment and Plan (1) Foot abscess, right Current Visit: Yes Status: Acute Code(s): L02.611 - CUTANEOUS ABSCESS OF RIGHT FOOT SNOMED Code(s): 36780059650921030 (2) MRSA (methicillin resistant staph aureus) culture positive Current Visit: Yes Status: Acute Code(s): Z22.322 - CARRIER OR SUSPECTED CARRIER OF METHICILLIN RESIS STAPH SNOMED Code(s): 438253631 Plan: 1patient presented to hospital with right foot abscess and cellulitis failing outpatient oral Keflex therapy concern for possible community associated MRSA less likely gram-negative infection. 2patient has been evaluated by vascular surgery and status post drainage of the abscess and deep culture. 3patient to continue with vancomycin pharmacy to dose with a target trough of 15 while watching kidney function and Vanco trough closely and discontinue cefepime Time with Patient: Less than 30
[2022-02-10] MEDS: SODIUM CHLORIDE 0.9% 1,000 ML IV SCH (17:10)
[2022-02-10] MEDS: busPIRone HCl 10 MG TAB PO SCH (20:17)
[2022-02-10] MEDS: cloNIDine HCL 0.1 MG TAB PO SCH (20:17)
[2022-02-10] MEDS: DULoxetine HCL 60 MG CAPSULE.DR PO SCH (20:18)
--- NOTE | 2022-02-10 22:45 | P.PN ---
Subjective Progress Note Date: 02/10/22 Patient is a 46-year-old female with known history of asthma/COPD, fibromyalgia, osteoarthritis, rheumatoid arthritis, biopsy peripheral neuropathy nondiabetic and chronic low back pain, currently everyday smoker, anxiety/depression and bipolar disorder presents to ER with complaints of right foot swelling and pain and purulent drainage. Patient was seen in the ER on 02/04/2022 with a right foot abscess and had I&D done in the ER and was sent home with antibiotics in the form of Keflex. Patient has not been improving and I was having purulent foul-smelling drainage with worsening pain. Patient stated that she was taking antibiotics. Otherwise denied any complaints of fever or chills. No numbness or tingling sensation. No nausea vomiting abdominal area. No chest pain or shortness of breath. On admission T-max was 100.0. X-ray of the foot showed soft tissue swelling. No focal bone destruction. No fracture. Laboratory data showed WC 13.2 hemoglobin 13.6 and platelets 191 sodium 136 po tassium 3.7 chloride 101 bicarb is 27 BUN 11 creatinine 0.55 and blood sugar is 104 and CRP 8.4. Liver enzymes are not elevated. 02/10/2022 Patient is currently resting in bed. S/p I&D of the right foot abscess last night. Denies any complaints of fever or chills. No nausea vomiting or abdominal pain or diarrhea. Pain is better controlled. No chest pain or shortness of breath. No cough or sputum production. Laboratory data showed WBC came down to 9.26 hemoglobin 12.6 and platelets 149 sodium 137 potassium 4.6 chloride 103 bicarb is 19.5 BUN 9.9 and creatinine 0.8. Calcium 8.6. Follow-up culture reports. Wound cultures presumptive MRSA. Patient is being current on antibiotics in the form of vancomycin. ID is on board. Objective - Vital Signs Vital signs: Vital Signs Temp 98.2 F 02/10/22 19:29 Pulse 88 02/10/22 19:29 Resp 18 02/10/22 19:29 BP 142/78 02/10/22 19:29 Pulse Ox 95 02/10/22 19:29 FiO2 Intake & Output 02/10/22 02/10/22 02/11/22 06:59 18:59 06:59 Intake Total 200 Output Total 50 Balance 150 Intake: IV 200 Output: Estimated Blood Loss 50 Other: Voiding Method Toilet # Voids 1 1 - Exam PHYSICAL EXAMINATION: Patient is lying in the bed comfortably, no acute distress, awake alert and oriented.. Morbidly obese. HEENT: Normocephalic. Neck is supple. Pupils reactive. Nostrils clear. Oral cavity is moist. Neck reveals no JVD, carotid bruits, or thyromegaly. CHEST EXAMINATION: Trachea is central. Symmetrical expansion. Lung garcia clear to auscultation and percussion. CARDIAC: Normal S1, S2 with no gallops. No murmurs ABDOMEN: Soft. Bowel sounds present. Nontender. No organomegaly. No abdominal bruits. Extremities: reveal no edema. No clubbing or cyanosis Neurologically awake, alert, oriented x3 with well-coordinated movements. No focal deficits noted Skin: No rash or skin lesions. Psychiatric: Coperative. Nonsuicidal, Musculoskeletal: No joint swelling or deformity. Right foot surgical site is bandaged. - Labs CBC & Chem 7: 02/10/22 06:47 02/10/22 06:47 Labs: Abnormal Lab Results - Last 24 Hours (Table) 02/10/22 02/10/22 Range/Units 06:47 06:47 MCV 97.4 H (80.0-97.0) fL MCHC 30.7 L (32.0-37.0) g/dL Immature Gran # 0.05 H (0.00-0.04) X 10*3/uL Carbon Dioxide 19.5 L (20.0-27.5) mmol/L Glucose 126 H (70-110) mg/dL Calcium 8.6 L (8.7-10.3) mg/dL Microbiology - Last 24 Hours (Table) 02/08/22 15:30 Blood Culture - Preliminary Blood No Growth after 48 hours 02/08/22 15:10 Blood Culture - Preliminary Blood No Growth after 48 hours 02/09/22 20:16 Gram Stain - Preliminary Foot - Right Tissue Culture - Preliminary 02/08/22 17:27 Gram Stain - Preliminary Foot - Right Wound Culture - Preliminary Presumptive MRSA 02/09/22 20:16 Anaerobic Culture - Preliminary Foot - Right Assessment and Plan Assessment: Right lateral foot abscess with surrounding cellulitis and failed outpatient antibiotic therapy.S/p I&D by vascular surgery. Prior history of MRSA infection Fibromyalgia Hypertension Rheumatoid arthritis Asthma/COPD Currently everyday smoker Anxiety/depression and bipolar disorder DVT prophylaxis with heparin subcu Plan: Patient will be continued on antibiotics in the form of vancomycin.S/p I&D by vascular surgery. Follow-up deep culture report. Follow-up blood cultures. Infectious is on board. Continue home medications. Smoking cessation has been counseled extensively..
[2022-02-11] MEDS: MORPHINE SULFATE 4 MG/ML SYRINGE IV PRN ×3 (00:13→15:18)
[2022-02-11] MEDS: HEPARIN SODIUM,PORCINE/PF 5,000 UNIT/0.5 ML SYRINGE SQ SCH ×4 (00:14→23:40)
--- NOTE | 2022-02-11 03:23 | PN ---
PROGRESS NOTE SUBJECTIVE: This is a 46-year-old female, she came with infected abscess right foot lateral aspect. We did excision and drainage of the abscess, excision of all the devitalized tissue. Deep culture was taken. Patient is on IV antibiotic under care of Infectious Disease. Today we have changed the dressing. Patient still has some redness on the dorsal aspect of the foot. Wound has minimal drainage. Excess Silver Rope was applied to the wound. Continue with IV antibiotic, 1 pillow elevation. MMODL / IJN: [id number] /
[2022-02-11] MEDS ORDERED: VANCOMYCIN TROUGH DUE 1 EACH MISC MISCELLANE ONE (04:00)
[2022-02-11 04:44] LABS: African American GFR (CKD) >90 (>60 ml/min/1.73 sqM); Anion Gap 4 mmol/L; Blood Urea Nitrogen 10 mg/dL (7-17); Carbon Dioxide 29 mmol/L (22-30); Chloride 104 mmol/L (98-107); Glucose 116 mg/dL (74-99); Non-African American GFR(CKD) >90 (>60 ml/min/1.73 sqM); Sodium 137 mmol/L (137-145)
[2022-02-11] MEDS: VANCOMYCIN 2,250 MG in SODIUM CHLORIDE 0.9% 500 ML 500 ML IVPB SCH ×2 (04:48→17:45)
[2022-02-11] MEDS: FUROSEMIDE 20 MG TAB PO SCH (08:31)
[2022-02-11] MEDS: NON FORMULARY DRUG (Cariprazine Hcl [Vraylar] 3 MG Capsule) PO SCH (08:31)
[2022-02-11] MEDS: GABAPENTIN 400 MG CAP PO SCH ×3 (08:31→21:09)
[2022-02-11] MEDS ORDERED: LIDOCAINE 1% INJ 10MG/ML (5 ML VIAL-PF) SQ ONE (09:32)
--- NOTE | 2022-02-11 09:57 | IR ---
PICC LINE PLACEMENT: HISTORY: Infection requiring long-term antibiotic therapy PROCEDURE: Ultrasound and fluoroscopic guidance of PICC line placement. SKILLS AUDITOR: Dr. Jean COMPLICATIONS: None ANESTHESIA: 1% Lidocaine locally. FINDINGS/TECHNIQUE: The procedure was explained to the patient. The risks, complications, benefits and alternatives were discussed and any questions were answered. Informed consent was obtained. The patient was placed supine on the fluoroscopic table and prepped and draped in the usual sterile [facility] ion. Utilizing a 21 gauge needle and sonographic and fluoroscopic guidance, access in the left basi lic vein was achieved and there is placement of a 0.018 guidewire. The vein is patent. A 4-F. sheat h was placed over the guidewire. The guidewire and dilator were removed and a 4-F. PICC line was catie keiko through the sheath with the tip at the level of the SVC. The sheath was removed, the catheter wa s flushed and sutured into position. The patient was stable throughout the procedure and remained st able upon discharge from the Department of Radiology. The vein puncture was patent under ultrasound. A mars scale image was obtained to document patency of the vein punctured. All elements of the maximal barrier technique were utilized. FLUOROSCOPY TIME: 0.1 minutes IMPRESSION: Successful PICC line placement under ultrasound and fluoroscopic guidance.
[2022-02-11 10:39] LABS: Basophils # (A) 0.06 X 10*3/uL (0.00-0.10); Eosinophils % (A) 4.8 %; HCT 42.8 % (37.2-46.3); HGB 12.8 g/dL (12.0-15.0); Immature Grans, Automated 0.6 %; Lymphocytes # (A) 2.23 X 10*3/uL (0.90-5.00); Lymphocytes % (A) 35.7 %; MCH 29.3 pg (27.0-32.0); MCHC 29.9 g/dL (32.0-37.0); MCV 97.9 fL (80.0-97.0); Mean Platelet Volume 9.9 fL (9.5-12.2); Monocytes # (A) 0.58 X 10*3/uL (0.20-1.00); Monocytes % (A) 9.3 %; NRBC Per 100 WBC 0 /100 WBCS (0.0-0.0); Neutrophils # (A) 3.03 X 10*3/uL (1.80-7.70); Neutrophils % (A) 48.6 %; Platelet Count 227 X 10*3/uL (140-440); RBC 4.37 X 10*6/uL (4.10-5.20); RDW 14.1 % (11.5-14.5); WBC 6.24 X 10*3/uL (4.50-10.00)
--- NOTE | 2022-02-11 15:40 | P.PN ---
Subjective Progress Note Date: 02/11/22 Principal diagnosis: Right foot abscess and cellulitis Patient is a 46-year-old morbidly obese female presenting to the hospital with right foot pain swelling or redness with the diagnoses of the abscess that was initially treated on 02/04/2022 and failed to respond to outpatient oral Keflex patient was evaluated by vascular surgery 02/09/2022 and did have a surgical drainage of the abscess and excision of the necrotic tissue. On today's evaluation that is 02/11/2022, the patient remains to be afebrile, patient pain to the right foot is currently controlled with the pain medication, patient denies having any chest pain shortness of breath or cough no nausea no vomiting no abdominal pain no diarrhea Objective - Vital Signs Vital signs: Vital Signs Temp 99.2 F 02/11/22 07:56 Pulse 82 02/11/22 07:56 Resp 22 02/11/22 07:56 BP 140/87 02/11/22 07:56 Pulse Ox 94 L 02/11/22 07:56 FiO2 Intake & Output 02/10/22 02/11/22 02/11/22 18:59 06:59 18:59 Other: Voiding Method Bedside Commode # Voids 1 3 - Exam GENERAL DESCRIPTION: A middle-age female up in bed in no distress RESPIRATORY SYSTEM: Unlabored breathing , decreased breath sounds at bases HEART: S1 S2 regular rate and rhythm , ABDOMEN: Soft , no tenderness EXTREMITIES: Right foot is currently dressed no drainage on the dressing - Labs CBC & Chem 7: 02/11/22 04:03 02/11/22 04:03 Labs: Abnormal Lab Results - Last 24 Hours (Table) 02/11/22 02/11/22 Range/Units 04:03 04:03 MCV 97.9 H (80.0-97.0) fL MCHC 29.9 L (32.0-37.0) g/dL Glucose 116 H (74-99) mg/dL Calcium 8.0 L (8.4-10.2) mg/dL Microbiology - Last 24 Hours (Table) 02/08/22 17:27 Gram Stain - Final Foot - Right Wound Culture - Final Methicillin resist S. aureus 02/09/22 20:16 Gram Stain - Preliminary Foot - Right Tissue Culture - Preliminary Presumptive MRSA 02/08/22 15:30 Blood Culture - Preliminary Blood No Growth after 48 hours 02/08/22 15:10 Blood Culture - Preliminary Blood No Growth after 48 hours 02/09/22 20:16 Anaerobic Culture - Preliminary Foot - Right Assessment and Plan (1) Foot abscess, right Current Visit: Yes Status: Acute Code(s): L02.611 - CUTANEOUS ABSCESS OF RIGHT FOOT SNOMED Code(s): 25207748588809056 (2) MRSA (methicillin resistant staph aureus) culture positive Current Visit: Yes Status: Acute Code(s): Z22.322 - CARRIER OR SUSPECTED CARRIER OF METHICILLIN RESIS STAPH SNOMED Code(s): 735184952 Plan: 1patient presented to hospital with right foot abscess and cellulitis failing outpatient oral Keflex therapy concern for possible community associated MRSA less likely gram-negative infection. 2patient has been evaluated by vascular surgery and status post drainage of the abscess and deep culture which are currently growing MRSA. Apparently the wound is extending down to the bone concerning for osteomyelitis 3patient to continue with vancomycin pharmacy to dose with a target trough of 15, she will need a PICC line for outpatient IV antibiotic therapy Time with Patient: Less than 30
--- NOTE | 2022-02-11 16:24 | P.PN ---
Progress Note - Text 46-year-old diabetic female history of obesity patient came with the abscess a right foot we did the drainage of abscess and extensive debridement down to the bone culture came as a MRSA patient is under care of infectious disease we've been treating with local wound care patient still has some mild redness or dorsal aspect of foot we been using X a silver which we'll change every 48 hours
[2022-02-11] MEDS: SODIUM CHLORIDE 0.9% 1,000 ML IV SCH (17:45)
[2022-02-11] MEDS: busPIRone HCl 10 MG TAB PO SCH (20:30)
[2022-02-11] MEDS: DULoxetine HCL 60 MG CAPSULE.DR PO SCH (20:30)
[2022-02-11] MEDS: HYDROcodone/APAP 5-325MG 1 EACH TAB PO PRN (20:34)
[2022-02-11] MEDS: cloNIDine HCL 0.1 MG TAB PO SCH (20:34)
[2022-02-12] MEDS: VANCOMYCIN 2,250 MG in SODIUM CHLORIDE 0.9% 500 ML 500 ML IVPB SCH ×2 (05:48→17:03)
[2022-02-12 08:29] LABS: Basophils # (A) 0.06 X 10*3/uL (0.00-0.10); Basophils % (A) 0.9 %; Eosinophils # (A) 0.33 X 10*3/uL (0.04-0.35); Eosinophils % (A) 4.9 %; HCT 40.8 % (37.2-46.3); HGB 12.6 g/dL (12.0-15.0); Lymphocytes # (A) 1.62 X 10*3/uL (0.90-5.00); Lymphocytes % (A) 24.1 %; MCH 29.8 pg (27.0-32.0); MCHC 30.9 g/dL (32.0-37.0); MCV 96.5 fL (80.0-97.0); Mean Platelet Volume 9.7 fL (9.5-12.2); Monocytes # (A) 0.59 X 10*3/uL (0.20-1.00); Monocytes % (A) 8.8 %; NRBC Per 100 WBC 0 /100 WBCS (0.0-0.0); Neutrophils # (A) 4.05 X 10*3/uL (1.80-7.70); Neutrophils % (A) 60.3 %; Platelet Count 226 X 10*3/uL (140-440); RBC 4.23 X 10*6/uL (4.10-5.20); RDW 13.8 % (11.5-14.5); WBC 6.72 X 10*3/uL (4.50-10.00)
[2022-02-12] MEDS: NON FORMULARY DRUG (Cariprazine Hcl [Vraylar] 3 MG Capsule) PO SCH (08:32)
[2022-02-12] MEDS: HEPARIN SODIUM,PORCINE/PF 5,000 UNIT/0.5 ML SYRINGE SQ SCH ×2 (08:32→16:03)
[2022-02-12] MEDS: FUROSEMIDE 20 MG TAB PO SCH (08:33)
[2022-02-12] MEDS: GABAPENTIN 400 MG CAP PO SCH ×3 (08:33→20:59)
[2022-02-12] MEDS: HYDROcodone/APAP 5-325MG 1 EACH TAB PO PRN ×3 (08:35→22:13)
[2022-02-12 08:45] LABS: African American GFR (CKD) 128.5 (60.0-200.0); Anion Gap 9.9 mmol/L (10.00-18.00); BUN/Creat Ratio 14.83 Ratio (12.00-20.00); Blood Urea Nitrogen 8.9 mg/dL (9.0-27.0); Calcium 8.8 mg/dL (8.7-10.3); Carbon Dioxide 28.1 mmol/L (20.0-27.5); Non-African American GFR(CKD) 110.9 (60.0-200.0); Potassium 4.1 mmol/L (3.5-5.5)
--- NOTE | 2022-02-12 11:54 | P.PN ---
Subjective Progress Note Date: 02/11/22 Patient is a 46-year-old female with known history of asthma/COPD, fibromyalgia, osteoarthritis, rheumatoid arthritis, biopsy peripheral neuropathy nondiabetic and chronic low back pain, currently everyday smoker, anxiety/depression and bipolar disorder presents to ER with complaints of right foot swelling and pain and purulent drainage. Patient was seen in the ER on 02/04/2022 with a right foot abscess and had I&D done in the ER and was sent home with antibiotics in the form of Keflex. Patient has not been improving and I was having purulent foul-smelling drainage with worsening pain. Patient stated that she was taking antibiotics. Otherwise denied any complaints of fever or chills. No numbness or tingling sensation. No nausea vomiting abdominal area. No chest pain or shortness of breath. On admission T-max was 100.0. X-ray of the foot showed soft tissue swelling. No focal bone destruction. No fracture. Laboratory data showed WC 13.2 hemoglobin 13.6 and platelets 191 sodium 136 po tassium 3.7 chloride 101 bicarb is 27 BUN 11 creatinine 0.55 and blood sugar is 104 and CRP 8.4. Liver enzymes are not elevated. 02/10/2022 Patient is currently resting in bed. S/p I&D of the right foot abscess last night. Denies any complaints of fever or chills. No nausea vomiting or abdominal pain or diarrhea. Pain is better controlled. No chest pain or shortness of breath. No cough or sputum production. Laboratory data showed WBC came down to 9.26 hemoglobin 12.6 and platelets 149 sodium 137 potassium 4.6 chloride 103 bicarb is 19.5 BUN 9.9 and creatinine 0.8. Calcium 8.6. Follow-up culture reports. Wound cultures presumptive MRSA. Patient is being current on antibiotics in the form of vancomycin. ID is on board. 02/11/2022 Patient is awake alert and oriented 3. Resting in the bed. Right foot pain is better. No complaints of chest pain or shortness of breath. Patient has been afebrile. No nausea vomiting or abdominal pain or diarrhea. Laboratory data showed WBC 6.2 hemoglobin 12.8 and platelets 227 sodium 137 potassium 4.0 chloride 104 bicarb is 29 BUN 10 and creatinine 0.61 and blood sugar is 116. Patient is being continued on antibiotics, vancomycin. Wound cultures showing present MRSA. Patient may need IV antibiotic therapy. ID is on board. Next and Current medications reviewed. Objective - Vital Signs Vital signs: Vital Signs Temp 97.4 F L 02/11/22 14:00 Pulse 71 02/11/22 14:00 Resp 22 02/11/22 14:00 BP 127/85 02/11/22 14:00 Pulse Ox 97 02/11/22 14:00 FiO2 Intake & Output 02/11/22 02/11/22 02/12/22 06:59 18:59 06:59 Other: Voiding Method Bedside Commode # Voids 3 2 - Exam PHYSICAL EXAMINATION: Patient is lying in the bed comfortably, no acute distress, awake alert and oriented.. Morbidly obese. HEENT: Normocephalic. Neck is supple. Pupils reactive. Nostrils clear. Oral cavity is moist. Neck reveals no JVD, carotid bruits, or thyromegaly. CHEST EXAMINATION: Trachea is central. Symmetrical expansion. Lung garcia clear to auscultation and percussion. CARDIAC: Normal S1, S2 with no gallops. No murmurs ABDOMEN: Soft. Bowel sounds present. Nontender. No organomegaly. No abdominal bruits. Extremities: reveal no edema. No clubbing or cyanosis Neurologically awake, alert, oriented x3 with well-coordinated movements. No focal deficits noted Skin: No rash or skin lesions. Psychiatric: Coperative. Nonsuicidal, Musculoskeletal: No joint swelling or deformity. Right foot surgical site is bandaged. - Labs CBC & Chem 7: 02/12/22 05:17 02/12/22 05:17 Labs: Abnormal Lab Results - Last 24 Hours (Table) 02/11/22 02/11/22 Range/Units 04:03 04:03 MCV 97.9 H (80.0-97.0) fL MCHC 29.9 L (32.0-37.0) g/dL Glucose 116 H (74-99) mg/dL Calcium 8.0 L (8.4-10.2) mg/dL Microbiology - Last 24 Hours (Table) 02/08/22 15:30 Blood Culture - Preliminary Blood No Growth after 72 hours 02/08/22 15:10 Blood Culture - Preliminary Blood No Growth after 72 hours 02/08/22 17:27 Gram Stain - Final Foot - Right Wound Culture - Final Methicillin resist S. aureus 02/09/22 20:16 Gram Stain - Preliminary Foot - Right Tissue Culture - Preliminary Presumptive MRSA Assessment and Plan Assessment: Right lateral foot abscess with surrounding cellulitis and failed outpatient antibiotic therapy.S/p I&D by vascular surgery. Wound cultures growing MRSA. Prior history of MRSA infection Fibromyalgia Hypertension Rheumatoid arthritis Asthma/COPD Currently everyday smoker Anxiety/depression and bipolar disorder Morbid obesity BMI 64.0 DVT prophylaxis with heparin subcu Plan: Patient will be continued on antibiotics in the form of vancomycin.S/p I&D by vascular surgery. Wound cultures growing MRSA. Follow up final culture report. Blood cultures negative.. Infectious disease and vascular surgery is on board. Continue home medications. Smoking cessation has been counseled extensively..
[2022-02-12] MEDS: SODIUM CHLORIDE 0.9% 1,000 ML IV SCH (20:40)
--- NOTE | 2022-02-12 20:40 | P.PN ---
Subjective Progress Note Date: 02/12/22 Principal diagnosis: Right foot abscess and cellulitis Patient is a 46-year-old morbidly obese female presenting to the hospital with right foot pain swelling or redness with the diagnoses of the abscess that was initially treated on 02/04/2022 and failed to respond to outpatient oral Keflex patient was evaluated by vascular surgery 02/09/2022 and did have a surgical drainage of the abscess and excision of the necrotic tissue. On today's evaluation that is 02/12/2022, the patient continues to be afebrile, patient pain to the right foot has slightly decreased in intensity, the patient denies having any chest pain shortness of breath, abdominal pain or diarrhea Objective - Vital Signs Vital signs: Vital Signs Temp 97.7 F 02/12/22 07:49 Pulse 80 02/12/22 07:49 Resp 17 02/12/22 07:49 BP 133/88 02/12/22 07:49 Pulse Ox 94 L 02/12/22 07:49 FiO2 Intake & Output 02/11/22 02/12/22 02/12/22 18:59 06:59 18:59 Intake Total 100 Balance 100 Intake: Oral 100 Other: Voiding Method Bedside Commode # Voids 2 2 - Exam GENERAL DESCRIPTION: A middle-age female up in bed in no distress RESPIRATORY SYSTEM: Unlabored breathing , decreased breath sounds at bases HEART: S1 S2 regular rate and rhythm , ABDOMEN: Soft , no tenderness EXTREMITIES: Right foot is currently dressed no drainage on the dressing - Labs CBC & Chem 7: 02/12/22 05:17 02/12/22 05:17 Labs: Abnormal Lab Results - Last 24 Hours (Table) 02/12/22 02/12/22 Range/Units 05:17 05:17 MCHC 30.9 L (32.0-37.0) g/dL Immature Gran # 0.07 H (0.00-0.04) X 10*3/uL Carbon Dioxide 28.1 H (20.0-27.5) mmol/L Anion Gap 9.90 L (10.00-18.00) mmol/L BUN 8.9 L (9.0-27.0) mg/dL Microbiology - Last 24 Hours (Table) 02/09/22 20:16 Gram Stain - Preliminary Foot - Right Tissue Culture - Preliminary Methicillin resist S. aureus 02/08/22 15:30 Blood Culture - Preliminary Blood No Growth after 72 hours 02/08/22 15:10 Blood Culture - Preliminary Blood No Growth after 72 hours 02/08/22 17:27 Gram Stain - Final Foot - Right Wound Culture - Final Methicillin resist S. aureus Assessment and Plan (1) Foot abscess, right Current Visit: Yes Status: Acute Code(s): L02.611 - CUTANEOUS ABSCESS OF RIGHT FOOT SNOMED Code(s): 72089180125086286 (2) MRSA (methicillin resistant staph aureus) culture positive Current Visit: Yes Status: Acute Code(s): Z22.322 - CARRIER OR SUSPECTED CARRIER OF METHICILLIN RESIS STAPH SNOMED Code(s): 926466140 Plan: 1patient presented to hospital with right foot abscess and cellulitis failing outpatient oral Keflex therapy concern for possible community associated MRSA less likely gram-negative infection. 2patient has been evaluated by vascular surgery and status post drainage of the abscess and deep culture which are currently growing MRSA. Apparently the wound is extending down to the bone concerning for osteomyelitis 3patient seemed to have some clinical improvement patient will continue with vancomycin pharmacy to dose with a target trough of 15 to finish a 6 week course of therapy with close outpatient follow-up Time with Patient: Less than 30
[2022-02-12] MEDS: cloNIDine HCL 0.1 MG TAB PO SCH (20:59)
[2022-02-12] MEDS: busPIRone HCl 10 MG TAB PO SCH (20:59)
[2022-02-12] MEDS: DULoxetine HCL 60 MG CAPSULE.DR PO SCH (20:59)
[2022-02-13] MEDS: HEPARIN SODIUM,PORCINE/PF 5,000 UNIT/0.5 ML SYRINGE SQ SCH ×3 (01:21→15:36)
[2022-02-13] MEDS: VANCOMYCIN 2,250 MG in SODIUM CHLORIDE 0.9% 500 ML 500 ML IVPB SCH (05:47)
--- NOTE | 2022-02-13 06:31 | P.PN ---
Subjective Progress Note Date: 02/12/22 Patient is a 46-year-old female with known history of asthma/COPD, fibromyalgia, osteoarthritis, rheumatoid arthritis, biopsy peripheral neuropathy nondiabetic and chronic low back pain, currently everyday smoker, anxiety/depression and bipolar disorder presents to ER with complaints of right foot swelling and pain and purulent drainage. Patient was seen in the ER on 02/04/2022 with a right foot abscess and had I&D done in the ER and was sent home with antibiotics in the form of Keflex. Patient has not been improving and I was having purulent foul-smelling drainage with worsening pain. Patient stated that she was taking antibiotics. Otherwise denied any complaints of fever or chills. No numbness or tingling sensation. No nausea vomiting abdominal area. No chest pain or shortness of breath. On admission T-max was 100.0. X-ray of the foot showed soft tissue swelling. No focal bone destruction. No fracture. Laboratory data showed WC 13.2 hemoglobin 13.6 and platelets 191 sodium 136 potassium 3.7 chloride 101 bicarb is 27 BUN 11 creatinine 0.55 and blood sugar is 104 and CRP 8.4. Liver enzymes are not elevated. 02/10/2022 Patient is currently resting in bed. S/p I&D of the right foot abscess last night. Denies any complaints of fever or chills. No nausea vomiting or abdomi nal pain or diarrhea. Pain is better controlled. No chest pain or shortness of breath. No cough or sputum production. Laboratory data showed WBC came down to 9.26 hemoglobin 12.6 and platelets 149 sodium 137 potassium 4.6 chloride 103 bicarb is 19.5 BUN 9.9 and creatinine 0.8. Calcium 8.6. Follow-up culture reports. Wound cultures presumptive MRSA. Patient is being current on antibiotics in the form of vancomycin. ID is on board. 02/11/2022 Patient is awake alert and oriented 3. Resting in the bed. Right foot pain is better. No complaints of chest pain or shortness of breath. Patient has been afebrile. No nausea vomiting or abdominal pain or diarrhea. Laboratory data showed WBC 6.2 hemoglobin 12.8 and platelets 227 sodium 137 potassium 4.0 chloride 104 bicarb is 29 BUN 10 and creatinine 0.61 and blood sugar is 116. Patient is being continued on antibiotics, vancomycin. Wound cultures showing present MRSA. Patient may need IV antibiotic therapy. ID is on board. Next and Current medications reviewed. 02/12/2022 She was seen and evaluated in follow-up with no acute overnight issues. Patient being followed by infectious disease along with vascular surgery status post incision and drainage and vascular surgery recommend monitoring overnight with dressing changes and wound care in the morning with possible discharge in 24 hours. Patient has received a PICC line and social work following arranging for outpatient IV diuretics in the form of vancomycin for the next 6 weeks with pharmacy to dose along with close outpatient follow-up at the wound center with Dr. Santiago vascular surgery. She is afebrile denies chest pain or shortness of breath. Patient reporting tolerating diet with no reports of nausea or vomiting noted. Review of systems: Constitutional: No reports of fatigue, fever, or chills Cardiovascular: No reports of chest pain or palpitations Respiratory: No reports of shortness of breath or cough GI: No reports of nausea, vomiting, or diarrhea : No reports of dysuria or retention Neurovascular: No reports of weakness or numbness, reports some right lower extremity tenderness All medications have been reviewed Active Medications Hydrocodone Bitart/Acetaminophen (Hydrocodone/Apap 5-325mg 1 Each Tab) 1 each PO Q6HR PRN PRN Reason: Pain Last Admin: 02/12/22 22:13 Dose: 1 each Buspirone HCl (Buspirone Hcl 10 Mg Tab) 30 mg PO [facility] Last Admin: 02/12/22 20:59 Dose: 30 mg Clonidine (Clonidine Hcl 0.1 Mg Tab) 0.1 mg PO [facility] Last Admin: 02/12/22 20:59 Dose: 0.1 mg Duloxetine HCl (Duloxetine Hcl 60 Mg Capsule.Dr) 60 mg PO [facility] Last Admin: 02/12/22 20:59 Dose: 60 mg Furosemide (Furosemide 20 Mg Tab) 20 mg PO DAILY [facility] Last Admin: 02/12/22 08:33 Dose: 20 mg Gabapentin (Gabapentin 400 Mg Cap) 800 mg PO TID [facility] Last Admin: 02/12/22 20:59 Dose: 800 mg Heparin Sodium (Porcine) (Heparin Sodium,Porcine/Pf 5,000 Unit/0.5 Ml Syringe) 5,000 unit SQ Q8HR [facility] Last Admin: 02/13/22 01:21 Dose: Not Given Vancomycin HCl 2,250 mg/ (Sodium Chloride) 500 mls @ 167 mls/hr IVPB Q12H [facility] Last Admin: 02/13/22 05:47 Dose: 167 mls/hr Sodium Chloride (Saline 0.9%) 1,000 mls @ 20 mls/hr IV .Q24H [facility] Last Admin: 02/12/22 20:40 Dose: Not Given Morphine Sulfate (Morphine Sulfate 4 Mg/Ml Syringe) 4 mg IV Q4HR PRN PRN Reason: Severe Pain (Scale 7 to 10) Last Admin: 02/11/22 15:18 Dose: 4 mg Naloxone HCl (Naloxone 0.4 Mg/Ml 1 Ml Vial) 0.2 mg IV Q2M PRN PRN Reason: Opioid Reversal Non-Formulary Medication (Cariprazine Hcl [Vraylar]) 3 mg PO DAILY [facility] Last Admin: 02/12/22 08:32 Dose: Not Given Ondansetron HCl (Ondansetron 4 Mg/2 Ml Vial) 4 mg IVP Q8HR PRN PRN Reason: Nausea And Vomiting Physical Exam: Patient is lying in the bed comfortably, no acute distress, awake alert and oriented.. Morbidly obese. HEENT: Normocephalic. Neck is supple. Pupils reactive. Nostrils clear. Oral cavity is moist. Neck reveals no JVD, carotid bruits, or thyromegaly. CHEST EXAMINATION: Trachea is central. Symmetrical expansion. Lung garcia clear to auscultation and percussion. CARDIAC: Normal S1, S2 with no gallops. No murmurs ABDOMEN: Soft. Bowel sounds present. Nontender. No organomegaly. No abdominal bruits. Extremities: reveal no edema. No clubbing or cyanosis Neurologically awake, alert, oriented x3 with well-coordinated movements. No focal deficits noted Skin: No rash or skin lesions. Psychiatric: Coperative. Nonsuicidal, Musculoskeletal: No joint swelling or deformity. Right foot surgical site is bandaged. Assessment: Right lateral foot abscess with surrounding cellulitis and failed outpatient antibiotic therapy.S/p I&D by vascular surgery. Wound cultures growing MRSA. Prior history of MRSA infection Fibromyalgia Hypertension Rheumatoid arthritis Asthma/COPD Currently everyday smoker Anxiety/depression and bipolar disorder Morbid obesity BMI 64.0 DVT prophylaxis with heparin subcu Plan: Patient will be continued on antibiotics in the form of vancomycin. Patient is S/p I&D by vascular surgery. Wound cultures growing MRSA. Receive a PICC line and arranging for outpatient antibiotics and Homecare Vascular surgery recommend monitoring overnight and follow-up with wound care and dressing changes in the a.m. prior to discharge Patient will need close outpatient follow-up with infectious disease along with vascular surgery Due to multiple complex medical issues, adenosis is guarded Social work following and arranging for outpatient IV antibiotics and Homecare Possible discharge in 24 hours The impression and plan of care has been dictated by Padmaja Miller, Nurse Practitioner as directed. Dr. Berenice MD I have performed a history and examination and MDM of this patient, discussed the same with the dictator, and agree with the dictator's assessment and plan as written ,documented as a scribe. Based on total visit time, I have performed more than 50% of the visit. Objective - Vital Signs Vital signs: Vital Signs Temp 97.7 F 02/12/22 07:49 Pulse 80 02/12/22 07:49 Resp 17 02/12/22 07:49 BP 133/88 02/12/22 07:49 Pulse Ox 94 L 02/12/22 07:49 FiO2 Intake & Output 02/11/22 02/12/22 02/12/22 18:59 06:59 18:59 Intake Total 100 Balance 100 Intake: Oral 100 Other: Voiding Method Bedside Commode # Voids 2 2 - Labs CBC & Chem 7: 02/12/22 05:17 02/12/22 05:17 Labs: Abnormal Lab Results - Last 24 Hours (Table) 02/12/22 02/12/22 Range/Units 05:17 05:17 MCHC 30.9 L (32.0-37.0) g/dL Immature Gran # 0.07 H (0.00-0.04) X 10*3/uL Carbon Dioxide 28.1 H (20.0-27.5) mmol/L Anion Gap 9.90 L (10.00-18.00) mmol/L BUN 8.9 L (9.0-27.0) mg/dL Microbiology - Last 24 Hours (Table) 02/09/22 20:16 Gram Stain - Preliminary Foot - Right Tissue Culture - Preliminary Methicillin resist S. aureus 02/08/22 15:30 Blood Culture - Preliminary Blood No Growth after 72 hours 02/08/22 15:10 Blood Culture - Preliminary Blood No Growth after 72 hours 02/08/22 17:27 Gram Stain - Final Foot - Right Wound Culture - Final Methicillin resist S. aureus
[2022-02-13] MEDS: NON FORMULARY DRUG (Cariprazine Hcl [Vraylar] 3 MG Capsule) PO SCH (07:35)
[2022-02-13 09:05] VITALS: RESP 20
[2022-02-13] MEDS: HYDROcodone/APAP 5-325MG 1 EACH TAB PO PRN (09:35)
[2022-02-13] MEDS: GABAPENTIN 400 MG CAP PO SCH ×2 (09:36→15:36)
[2022-02-13] MEDS: FUROSEMIDE 20 MG TAB PO SCH (09:36)
[2022-02-13] MEDS: MORPHINE SULFATE 4 MG/ML SYRINGE IV PRN (13:50)
[2022-02-13 14:24] VITALS: BP 152/96; PULSE 67; TEMP 97.4
--- NOTE | 2022-02-13 16:16 | P.PN ---
Subjective Progress Note Date: 02/13/22 Principal diagnosis: Right foot abscess and cellulitis Patient is a 46-year-old morbidly obese female presenting to the hospital with right foot pain swelling or redness with the diagnoses of the abscess that was initially treated on 02/04/2022 and failed to respond to outpatient oral Keflex patient was evaluated by vascular surgery 02/09/2022 and did have a surgical drainage of the abscess and excision of the necrotic tissue. On today's evaluation that is 02/13/2022, the patient remains to be afebrile, patient pain to the right foot is currently controlled, the patient denies having any chest pain shortness of breath, abdominal pain or diarrhea, feeling better Objective - Vital Signs Vital signs: Vital Signs Temp 97.9 F 02/13/22 08:00 Pulse 74 02/13/22 08:00 Resp 20 02/13/22 08:00 BP 162/102 02/13/22 08:00 Pulse Ox 94 L 02/13/22 08:00 FiO2 Intake & Output 02/12/22 02/13/22 02/13/22 18:59 06:59 18:59 Intake Total 400 500 Balance 400 500 Intake: Oral 400 500 Other: Voiding Method Bedside Commode # Voids 2 2 - Exam GENERAL DESCRIPTION: A middle-age female up in bed in no distress RESPIRATORY SYSTEM: Unlabored breathing , decreased breath sounds at bases HEART: S1 S2 regular rate and rhythm , ABDOMEN: Soft , no tenderness EXTREMITIES: Right foot is currently dressed no drainage on the dressing - Labs CBC & Chem 7: 02/12/22 05:17 02/12/22 05:17 Labs: Microbiology - Last 24 Hours (Table) 02/09/22 20:16 Gram Stain - Final Foot - Right Tissue Culture - Final Methicillin resist S. aureus 02/08/22 15:30 Blood Culture - Preliminary Blood No Growth after 96 hours 02/08/22 15:10 Blood Culture - Preliminary Blood No Growth after 96 hours Assessment and Plan (1) Foot abscess, right Status: Acute Code(s): L02.611 - CUTANEOUS ABSCESS OF RIGHT FOOT SNOMED Code(s): 24487033359186660 (2) MRSA (methicillin resistant staph aureus) culture positive Status: Acute Code(s): Z22.322 - CARRIER OR SUSPECTED CARRIER OF METHICILLIN RESIS STAPH SNOMED Code(s): 975372608 Plan: 1patient presented to hospital with right foot abscess and cellulitis failing outpatient oral Keflex therapy concern for possible community associated MRSA less likely gram-negative infection. 2patient has been evaluated by vascular surgery and status post drainage of the abscess and deep culture which are currently growing MRSA. Apparently the wound is extending down to the bone concerning for osteomyelitis 3patient has shown clinical improvement patient will continue with vancomycin pharmacy to dose with a target trough of 15 to finish a 6 week course of therapy once patient is cleared for discharge by vascular surgery patient should be able to go home as outpatient antibiotic has already been arranged
[2022-02-14] MEDS ORDERED: VANCOMYCIN TROUGH DUE 1 EACH MISC MISCELLANE ONE (04:00)
--- NOTE | 2022-02-16 19:59 | P.DS ---
Providers Date of admission: 02/10/22 10:41 Expected date of discharge: 02/13/22 Attending physician: Ernesto Ng Consults: 02/09/22 10:38 Consult Physician Routine Consulting Provider: Yvonne York Consult Reason/Comments: right foot abcess Do you want consulting provider notified?: Yes 02/09/22 12:41 Consult Physician Routine Consulting Provider: Will Santiaog Consult Reason/Comments: foot abscess Do you want consulting provider notified?: Yes 02/09/22 12:45 Consult Physician Routine Consulting Provider: Will Santiago Consult Reason/Comments: foot abcess Do you want consulting provider notified?: Yes [facility] Course: Final diagnosis Right lateral foot abscess with surrounding cellulitis and failed outpatient ant ibiotic therapy.S/p I&D by vascular surgery. Wound cultures growing MRSA. Prior history of MRSA infection Fibromyalgia Hypertension Rheumatoid arthritis Asthma/COPD Currently everyday smoker Anxiety/depression and bipolar disorder Morbid obesity BMI 64.0 DVT prophylaxis Discharge disposition Patient is being discharged in a stable condition with guarded prognosis to home with home care. Patient will follow-up with Dr. Angely Bhat in the outpatient setting upon discharge. Patient is to follow-up with vascular surgery and infectious disease as scheduled. She has received a PICC line for outpatient IV antibiotics. Total time taken is greater than 35 minutes. Hospital course This is a 46-year-old female who was recently admitted with right foot abscess and surrounding cellulitis with failed outpatient treatment underwent incision and drainage with debridement with vascular surgery recommending every other day dressing changes and close outpatient follow-up. Patient also follow-up with infectious disease Dr. York in his clinic. Patient has received a PICC line and is scheduled to receive outpatient IV antibiotics. Patient to follow-up with primary care provider Dr. Bhat continue with home care. Visiting nurses following and will follow-up with PCP for continued orders. This dictation will be sent to her primary care provider's office. Care agency was unable to contact PCP office as it was close for the holidays and will follow-up on 02/17/2022. His management provided home care services and arrangements for discharge by hospitalist group and will need specific follow-up with primary care provider to continue home care services. This was addressed and explained with the visiting nurses who are agreeable. Currently no reports of chest pain, shortness of breath, or palpitations. Patient is afebrile. No reports of nausea or vomiting and patient is tolerating diet. Patient will be discharged home. Guarded prognosis Physical exam: Gen: This is a 46-year-old female who is awake, alert and oriented 3, well- developed, well-nourished, morbidly obese HEENT: Head is atraumatic, normocephalic. Pupils equal, round. Sclerae is anicteric. NECK: Supple. No JVD. No lymphadenopathy. No thyromegaly. LUNGS: Clear to auscultation. No wheezes or rhonchi. No intercostal retractions. HEART: Regular rate and rhythm. No murmur. ABDOMEN: Soft. Bowel sounds are present. No masses. No tenderness. EXTREMITIES: No pedal edema. No calf tenderness. Foot dressing was recently changed this morning by vascular surgery and is dry and intact NEUROLOGICAL: Patient is awake, alert and oriented x3. Cranial nerves 2 through 12 are grossly intact. Please refer to medication reconciliation sheet for a list of medications. The impression and plan of care has been dictated by Padmaja Miller, Nurse Practitioner as directed. Dr. Berenice MD I have performed a history and examination and MDM of this patient, discussed the same with the dictator, and agree with the dictator's assessment and plan as written ,documented as a scribe. Based on total visit time, I have performed more than 50% of the visit. Patient will need follow-up with Dr. Thomas Bhat her PCP for continued service through visiting nurses home care Patient Condition at Discharge: Fair Plan - Discharge Summary Discharge Rx Participant: No New Discharge Prescriptions: New HYDROcodone/APAP 5-325MG [[place] 5-325] 1 each PO Q6HR PRN #9 tab PRN Reason: Pain Continue Gabapentin 800 mg PO TID busPIRone HCL [Buspar] 30 mg PO HS Furosemide [Lasix] 20 mg PO DAILY DULoxetine HCL [Cymbalta] 60 mg PO HS Cariprazine HCl [Vraylar] 3 mg PO DAILY cloNIDine HCL [Catapres] 0.1 mg PO HS Discontinued Cephalexin [Keflex] 500 mg PO Q6HR 7 Days #28 cap Discharge Medication List Cariprazine HCl [Vraylar] 3 mg PO DAILY 05/04/21 [History] DULoxetine HCL [Cymbalta] 60 mg PO HS 05/04/21 [History] Furosemide [Lasix] 20 mg PO DAILY 05/04/21 [History] Gabapentin 800 mg PO TID 05/04/21 [History] busPIRone HCL [Buspar] 30 mg PO HS 05/04/21 [History] cloNIDine HCL [Catapres] 0.1 mg PO HS 08/09/21 [History] HYDROcodone/APAP 5-325MG [[place]pens 5-325] 1 each PO Q6HR PRN #9 tab 02/13/22 [Rx] Follow up Appointment(s)/Referral(s): [facility]Infusion [NON-STAFF] - 1 Week [facility], [REFERRING] - 1 Week Will Santiago MD [STAFF PHYSICIAN] - 02/17/22 11:00 am Thomas Bhat MD [Primary Care Provider] - 1-2 days [facility], [NON-STAFF] - 1 Week Yvonne York MD [STAFF PHYSICIAN] - 1 Week (call [phone] to schedule an appointment) Activity/Diet/Wound Care/Special Instructions: Activity Limited until follow-up Follow-up with wound care center outpatient Continue with home care and IV antibiotics Follow-up with infectious disease closely outpatient follow-up with vascular surgery in one week Continue dressing changes every other day and is becoming soiled Elevate lower extremity while at rest Discharge Disposition: HOME WITH HOME HEALTH SERVICES
== END 2022-02-13 16:02 | disposition home health service (06) | DRG 580 ==
LOC: EC 14:36 → 6NMEDSUR 16:50 → OBSVTOIN 02-10 10:41
PROVIDERS: ADMIT Internal Medicine; ATTEND Internal Medicine
PROC: 0KBV0ZZ Excision of Right Foot Muscle, Open Approach (ICD-10-PCS; principal; 2022-02-10)
PROC: 0Y9M0ZZ Drainage of Right Foot, Open Approach (ICD-10-PCS; 2022-02-10)
PROC: 02HV33Z Insertion of Infusion Device into Superior Vena Cava, Percutaneous Approach (ICD-10-PCS; 2022-02-11)
DX: L02.611 Cutaneous abscess of right foot (principal); I96 Gangrene, not elsewhere classified; Z68.44 Body mass index [BMI] 60.0-69.9, adult; L03.115 Cellulitis of right lower limb; B95.62 Methicillin resistant Staphylococcus aureus infection as the cause of diseases classified elsewhere; E11.9 Type 2 diabetes mellitus without complications; I10 Essential (primary) hypertension; J44.9 Chronic obstructive pulmonary disease, unspecified; M06.9 Rheumatoid arthritis, unspecified; E66.01 Morbid (severe) obesity due to excess calories; G89.29 Other chronic pain; F17.210 Nicotine dependence, cigarettes, uncomplicated; F31.9 Bipolar disorder, unspecified; G62.9 Polyneuropathy, unspecified; M51.36 Other intervertebral disc degeneration, lumbar region; F41.9 Anxiety disorder, unspecified; M79.7 Fibromyalgia; Z79.899 Other long term (current) drug therapy; Z91.040 Latex allergy status; Z88.8 Allergy status to other drugs, medicaments and biological substances; Z86.14 Personal history of Methicillin resistant Staphylococcus aureus infection; Z28.310 Unvaccinated for COVID-19
CPT/HCPCS: 36415; 36573; 80048; 80053; 80202; 83605; 85025; 85027; 86140; 87040; 87070; 87075; 87077; 87186; 87205; 96361; 96365; 96367; 96375; 99285

== ENCOUNTER 2022-02-28 21:21 | Observation (INO) | payer MEDICARE, OTHER ==
[2022-02-28] MEDS ORDERED: MORPHINE SULFATE 4 MG/ML SYRINGE IV STA (21:53)
--- NOTE | 2022-02-28 22:06 | ED ---
General Adult HPI - General Chief complaint: Extremity Injury, Lower Stated complaint: R foot wound MRSA Time Seen by Provider: 02/28/22 21:41 Source: patient, family, RN notes reviewed Mode of arrival: wheelchair Limitations: no limitations - History of Present Illness Initial comments: 46-year-old female presenting to the emergency room with her spouse with complaints of increased right foot pain, swelling and increase in drainage from her right foot abscess. She reports that she has been on her feet more today to help prepare for her granddaughter's first birthday and also admits that her dog jumped on her foot earlier today as well prior to worsening of her symptoms. At home she is taking gabapentin for her pain without any relief of symptoms. She reports purulent brown drainage through multiple dressings to day which has worsened since her last intervention with Dr. Santiago. She is scheduled to follow-up with Dr. Santiago on Wednesday (in 2 days) but is concerned that her symptoms have become too severe to wait until that time. She has been taking her vancomycin infusions as prescribed. She denies any chest pain, shortness of breath, abdominal pain, nausea, vomiting, fevers or chills. In addition to her known MRSA and abscess history to her right foot she has past medical history significant for asthma, COPD, fibromyalgia, GERD, hypertension, osteoarthritis, rheumatoid arthritis, chronic lower back pain and neuropathy. - Related Data Home Medications Medication Instructions Recorded Confirmed Cariprazine HCl [Vraylar] 3 mg PO DAILY 05/04/21 02/28/22 DULoxetine HCL [Cymbalta] 60 mg PO HS 05/04/21 02/28/22 Furosemide [Lasix] 20 mg PO DAILY 05/04/21 02/28/22 Gabapentin 800 mg PO TID 05/04/21 02/28/22 busPIRone HCL [Buspar] 30 mg PO HS 05/04/21 02/28/22 cloNIDine HCL [Catapres] 0.1 mg PO HS 08/09/21 02/28/22 Potassium Chloride [Klor-Con M10] 10 meq PO DAILY 02/28/22 02/28/22 Vancomycin HCl 2 gm IV Q12H 02/28/22 02/28/22 Allergies Allergy/AdvReac Type Severity Reaction Status Date / Time latex Allergy Itching Verified 02/28/22 22:50 lithium AdvReac Vomiting Verified 02/28/22 22:50 pregabalin [From Lyrica] AdvReac Vomiting Verified 02/28/22 22:50 topiramate [From Topamax] AdvReac Abdominal Verified 02/28/22 22:50 Pain Review of Systems ROS Statement: Those systems with pertinent positive or pertinent negative responses have been documented in the HPI. ROS Other: All systems not noted in ROS Statement are negative. Past Medical History Past Medical History: Asthma, COPD, Fibromyalgia, GERD/Reflux, Hypertension, Musculoskeletal Disorder, Osteoarthritis (OA), Rheumatoid Arthritis (RA) Additional Past Medical History / Comment(s): Neuropathy feet/legs and hands, bulging discs, chronic low back pain, DDD. History of Any Multi-Drug Resistant Organisms: MRSA Date of last positivie culture/infection: 05/05/21 MDRO Source:: MRSA LEG Past Surgical History: Hysterectomy, Orthopedic Surgery, Tubal Ligation Additional Past Surgical History / Comment(s): Right knee arthroscopic surg x3; LEEP procedure, partial hysterectomy 2009/ovaries intact, colonoscopy 2013, Past Anesthesia/Blood Transfusion Reactions: No Reported Reaction Past Psychological History: Anxiety, Bipolar, Depression Smoking Status: Current every day smoker Past Alcohol Use History: Occasional Past Drug Use History: None Reported - Past Family History Mother Family Medical History: Cancer, Hypertension Additional Family Medical History / Comment(s): neuropathy; Mother had Colon Cancer Father Family Medical History: No Reported History Additional Family Medical History / Comment(s): Father is bipolar General Exam - General Exam Comments Initial Comments: GENERAL: No acute distress, well developed, well nourished. HEENT: Normocephalic, atraumatic. Pupils equal, round, reactive to light. Moist mucous membranes. LUNGS: No respiratory distress. Clear to auscultation, no adventitious sounds, no use of accessory muscles. HEART: Regular rate and rhythm without murmur, rub, or gallop. ABDOMEN: Normal bowel sounds. Soft, non-tender, non-distended. BACK: Normal inspection. EXTREMITIES: Right lower extremity with trace pitting along with nonpitting edema trace erythema. +2 pedal pulse. Wound to right foot as described below. NEUROLOGIC: Alert & oriented x 3. CN II-XII grossly intact. PSYCHIATRIC: Normal affect and behavior. DERMATOLOGIC: Open abscess to lateral aspect of right foot approximately 4 cm in diameter by 2-1/2 cm wound bed with significant purulent brown drainage and foul odor. Blistering to medial aspect of foot noted with tracking of purulent brown drainage. Discoloration to dorsal aspect of foot unchanged compared to wound care photos from patient. Limitations: no limitations Course Vital Signs 02/28/22 02/28/22 21:34 23:46 Temperature 98.0 F Pulse Rate 74 78 Respiratory 18 22 Rate Blood Pressure 153/95 165/124 O2 Sat by Pulse 98 97 Oximetry Medical Decision Making - Medical Decision Making Was pt. sent in by a medical professional or institution (, PA, INSURANCE CLAIMS ANALYST, urgent care, hospital, or skilled nursing...) When possible be specific @ -No Did you speak to anyone other than the patient for history (EMS, parent, family, police, friend...)? What history was obtained from this source @ -Spouse Did you review nursing and triage notes (agree or disagree)? Why? @ -I reviewed and agree with nursing and triage notes Were old charts reviewed (outside hosp., previous admission, EMS record, old EKG, old radiological studies, urgent care reports/EKG's, skilled nursing records)? Report findings @ -Last infectious disease note from hospitalization in January Differential Diagnosis (chest pain, altered mental status, abdominal pain women, abdominal pain men, vaginal bleeding, weakness, fever, dyspnea, syncope, headache, dizziness, GI bleed, back pain, seizure, CVA, palpatations, mental he alth)? @ -Differential lower extremity pain and abscess: Antibiotic resistance, nonadherence to nonweightbearing status, progressing of abscess tissue infection, osteomyelitis, this is not meant to be an all- inclusive list. EKG interpreted by me (3pts min.). @ -None done X-rays interpreted by me (1pt min.). @ -X-ray of the right foot demonstrates ulcerative crater lateral aspect of her fifth metacarpal consistent with soft tissue ulcer wound. No evidence of osteomyelitis fracture or dislocation. CT interpreted by me (1pt min.). @ -None done U/S interpreted by me (1pt. min.). @ -None done What testing was considered but not performed or refused? (CT, X-rays, U/S, labs)? Why? @ -Blood cultures and lactic acid considered but deferred due to lack of systemic symptoms of fever, leukocytosis or tachycardia. What meds were considered but not given or refused? Why? @ -None Did you discuss the management of the patient with other professionals (professionals i.e. , PA, INSURANCE CLAIMS ANALYST, lab, RT, psych nurse, social work manager, clinical program coordinator, teacher, preventive medicine officer, rn case manager)? Give summary @ -Yes, Dr. Vicente with [facility] regarding recommendation for admission as indicated below. He is accepting of admission. Will place admission orders and consults presents recommendations. Was smoking cessation discussed for >3mins.? @ -No Was critical care preformed (if so, how long)? @ -No Were there social determinants of health that impacted care today? How? (Homelessness, low income, unemployed, alcoholism, drug addiction, transportation, low edu. Level, literacy, decrease access to med. care, fpc, rehab)? @ -No Was there de-escalation of care discussed even if they declined (Discuss DNR or withdrawal of care, Hospice)? DNR status @ -No What co-morbidities impacted this encounter? (DM, HTN, Smoking, COPD, CAD, Cancer, CVA, ARF, Chemo, Hep., AIDS, mental health diagnosis, sleep apnea, morbid obesity)? @ -Known MRSA infection to right foot Was patient admitted / discharged? Hospital course, mention meds given and route, prescriptions, significant lab abnormalities, going to OR and other pertinent info. @ -46-year-old female presenting to the emergency room with increased pain swelling and drainage to right foot and right foot abscess despite adhering to antibiotic regimen. She did admits to being noncompliant with avoiding weightbearing and states that her dog jumped on her foot as well today. Will give morphine for pain. Will check x-ray to rule out osteomyelitis and fracture from dog jumped will obtain BMT and CBC. Given amount of pain and purulent [place] will likely require admission for pain control along with potential further intervention of wound. Pain improved with morphine. CBC and BMP unremarkable. X-ray negative for acute pathology. No indication for further diagnostic imaging or laboratory studies at this time. Due to increase in purulent drainage and uncontrolled pain recommend admission for pain control and further evaluation by infectious disease along with vascular. Patient is agreeable for admission. Spoke with Dr. Vicente with [facility] regarding recommendation for admission for further evaluation and treatment for failed outpatient treatment of MRSA abscess to right foot and increased pain. He is accepting of admission and recommends consults to vascular and infectious disease. Will place consult along with admission orders. Will resume home vancomycin dosing of [address] on consult to dose afterwards. Will admit to [facility] in stable condition for pain control and continued evaluation and treatment of MRSA abscess to right foot. Undiagnosed new problem with uncertain prognosis? @ -No Drug Therapy requiring intensive monitoring for toxicity (Heparin, Nitro, Insulin, Cardizem)? @ -No Were any procedures done? @ -No Diagnosis/symptom? @ -Abscess with cellulitis Acute, or Chronic, or Acute on Chronic? @ -Acute Uncomplicated (without systemic symptoms) or Complicated (systemic symptoms)? @ -Complicated Side effects of treatment? @ -No Exacerbation, Progression, or Severe Exacerbation? @ -Exacerbated Poses a threat to life or bodily function? How? (Chest pain, [place], SC, pneumonia, PE, COPD, DKA, ARF, appy, cholecystitis, CVA, Diverticulitis, Homicidal, Suicidal, threat to staff... and all critical care pts) @ -Yes Case discussed with Dr. Hernandez - Lab Data Result diagrams: 02/28/22 22:23 02/28/22 22:23 Lab Results 02/28/22 02/28/22 Range/Units 22:23 22:23 WBC 7.0 (3.8-10.6) k/uL RBC 4.96 (3.80-5.40) m/uL Hgb 14.6 (11.4-16.0) gm/dL Hct 44.7 (34.0-46.0) % MCV 90.0 (80.0-100.0) fL MCH 29.3 (25.0-35.0) pg MCHC 32.6 (31.0-37.0) g/dL RDW 13.6 (11.5-15.5) % Plt Count 262 (150-450) k/uL MPV 7.1 Neutrophils % 54 % Lymphocytes % 31 % Monocytes % 6 % Eosinophils % 6 % Basophils % 1 % Neutrophils # 3.7 (1.3-7.7) k/uL Lymphocytes # 2.1 (1.0-4.8) k/uL Monocytes # 0.4 (0-1.0) k/uL Eosinophils # 0.5 (0-0.7) k/uL Basophils # 0.1 (0-0.2) k/uL Sodium 139 (137-145) mmol/L Potassium 4.0 (3.5-5.1) mmol/L Chloride 104 (98-107) mmol/L Carbon Dioxide 28 (22-30) mmol/L Anion Gap 7 mmol/L BUN 13 (7-17) mg/dL Creatinine 0.70 (0.52-1.04) mg/dL Est GFR (CKD-EPI)AfAm >90 (>60 ml/min/1.73 sqM) Est GFR (CKD-EPI)NonAf >90 (>60 ml/min/1.73 sqM) Glucose 92 (74-99) mg/dL Calcium 9.2 (8.4-10.2) mg/dL - Radiology Data Radiology results: report reviewed, image reviewed Disposition Clinical Impression: Foot abscess, right, Cellulitis of right lower extremity, MRSA infection Disposition: ADMITTED IP TO THIS HOSP Condition: Stable Is patient prescribed a controlled substance at d/c from ED?: No Time of Disposition: 23:15
--- NOTE | 2022-02-28 22:30 | XR ---
EXAMINATION TYPE: XR foot complete RT DATE OF EXAM: 02/28/2022 COMPARISON: 02/08/2022 HISTORY: Pain TECHNIQUE: 3 views FINDINGS: There is plantar calcaneal spurring. There is soft tissue swelling around the foot and ankl e. No fracture seen. Metatarsals are intact there is 3 cm apparent ulcer crater over the lateral aspe ct of the proximal fifth metatarsal. IMPRESSION: There is improvement in the soft tissue swelling compared to last exam. No fracture. Large ulcer crater over the lateral aspect of the fifth metatarsal.
[2022-02-28 22:53] LABS: Basophils # (A) 0.1 k/uL (0-0.2); Basophils % (A) 1 %; Eosinophils # (A) 0.5 k/uL (0-0.7); Eosinophils % (A) 6 %; HCT 44.7 % (34.0-46.0); HGB 14.6 gm/dL (11.4-16.0); Lymphocytes # (A) 2.1 k/uL (1.0-4.8); Lymphocytes % (A) 31 %; MCH 29.3 pg (25.0-35.0); MCHC 32.6 g/dL (31.0-37.0); Mean Platelet Volume 7.1; Monocytes # (A) 0.4 k/uL (0-1.0); Monocytes % (A) 6 %; Neutrophils # (A) 3.7 k/uL (1.3-7.7); Neutrophils % (A) 54 %; Platelet Count 262 k/uL (150-450); RBC 4.96 m/uL (3.80-5.40); RDW 13.6 % (11.5-15.5)
[2022-02-28 23:14] LABS: African American GFR (CKD) >90 (>60 ml/min/1.73 sqM); Anion Gap 7 mmol/L; Blood Urea Nitrogen 13 mg/dL (7-17); Calcium 9.2 mg/dL (8.4-10.2); Carbon Dioxide 28 mmol/L (22-30); Chloride 104 mmol/L (98-107); Glucose 92 mg/dL (74-99); Non-African American GFR(CKD) >90 (>60 ml/min/1.73 sqM); Sodium 139 mmol/L (137-145)
[2022-02-28] MEDS ORDERED: NALOXONE 0.4 MG/ML 1 ML VIAL IV PRN (23:19)
[2022-02-28] MEDS ORDERED: VANCOMYCIN IV PER PHARMACY 1 EACH MISC MISCELLANE PRN (23:26)
[2022-02-28] MEDS ORDERED: VANCOMYCIN 2,250 MG in SODIUM CHLORIDE 0.9% 500 ML 500 ML IVPB STA (23:26)
[2022-02-28] MEDS ORDERED: cloNIDine HCL 0.1 MG TAB PO SCH (23:29)
[2022-02-28] MEDS ORDERED: busPIRone HCl 10 MG TAB PO SCH (23:30)
[2022-02-28] MEDS ORDERED: VANCOMYCIN 2,000 MG in SODIUM CHLORIDE 0.9% 500 ML 500 ML IVPB STA (23:43)
[2022-03-01] MEDS ORDERED: VANCOMYCIN 2,250 MG in SODIUM CHLORIDE 0.9% 500 ML 500 ML IVPB SCH ×2
[2022-03-01] MEDS: HYDROcodone/APAP 5-325MG 1 EACH TAB PO PRN ×2 (00:49→14:08)
[2022-03-01] MEDS: MORPHINE SULFATE 4 MG/ML SYRINGE IV PRN ×4 (03:14→15:49)
[2022-03-01] MEDS ORDERED: POTASSIUM CHLORIDE ER 10 MEQ TAB.ER.PRT PO SCH (09:00)
[2022-03-01] MEDS ORDERED: FUROSEMIDE 20 MG TAB PO SCH (09:00)
[2022-03-01] MEDS ORDERED: VANCOMYCIN TROUGH DUE 1 EACH MISC MISCELLANE ONE (09:00)
[2022-03-01] MEDS ORDERED: NON FORMULARY DRUG (Cariprazine Hcl [Vraylar] 3 MG Capsule) PO SCH (09:00)
[2022-03-01] MEDS: GABAPENTIN 400 MG CAP PO SCH ×2 (09:22→15:49)
--- NOTE | 2022-03-01 11:40 | P.HPIM ---
History of Present Illness H&P Date: 03/01/22 History of present illness; patient is a 46-year-old lady with past medical significant for asthma, COPD, fibromyalgia who recently was in the hospital for right foot abscess and surrounding cellulitis with failed outpatient treatment and underwent incision and drainage with debridement with vascular surgery. Patient also follow-up with infectious disease Dr. York in his clinic and received a PICC line and was on IV vancomycin. Patient presented to the emergency room with her spouse with complaints of increased right foot pain, swelling and increase in drainage from her right foot abscess. Patient stated that she has been on her feet more yesterday to help prepare for her granddaughter's per day and also her dog jumped on her foot. Patient noticed purulent wound drainage through her foot dressing. She denies any fever or chills at home. Denies any worsening pain in her right foot. Because of the drainage patient became concerned and came to the ER. Initial workup in the ER showed patient to a white count of 7, hemoglobin 14.6, sodium was 9, potassium 4, BUN 13, creatinine 0.7. Patient was started on broad-spectrum antibiotic and was admitted to hospitalist service. REVIEW OF SYSTEMS: CONSTITUTIONAL: No fever, no malaise, no fatigue. HEENT: No recent visual problems or hearing problems. Denied any sore throat. CARDIOVASCULAR: No chest pain, orthopnea, PND, no palpitations, no syncope. PULMONARY: No shortness of breath, no cough, no hemoptysis. GASTROINTESTINAL: No diarrhea, no nausea, no vomiting, no abdominal pain. NEUROLOGICAL: No headaches, no weakness, no numbness. HEMATOLOGICAL: Denies any bleeding or petechiae. GENITOURINARY: Denies any burning micturition, frequency, or urgency. MUSCULOSKELETAL/RHEUMATOLOGICAL: Denies any joint pain, swelling, or any muscle pain. ENDOCRINE: Denies any polyuria or polydipsia. The rest of the 14-point review of systems is negative. PHYSICAL EXAMINATION: GENERAL: The patient is alert and oriented x3, not in any acute distress. Well developed, well nourished. HEENT: Pupils are round and equally reacting to light. EOMI. No scleral icterus. No conjunctival pallor. Normocephalic, atraumatic. No pharyngeal erythema. No thyromegaly. CARDIOVASCULAR: S1 and S2 present. No murmurs, rubs, or gallops. PULMONARY: Chest is clear to auscultation, no wheezing or crackles. ABDOMEN: Soft, nontender, nondistended, normoactive bowel sounds. No palpable organomegaly. MUSCULOSKELETAL: No joint swelling or deformity. EXTREMITIES: Right foot dressing seen NEUROLOGICAL: Gross neurological examination did not reveal any focal deficits. SKIN: No rashes. Assessment and plan Right lateral foot cellulitis Right foot ulcer History of Wound cultures growing MRSA. Fibromyalgia Hypertension Rheumatoid arthritis Asthma/COPD Currently everyday smoker Anxiety/depression and bipolar disorder Morbid obesity BMI 64.0 DVT prophylaxis Plan; Monitor vital signs Monitor CBC Follow-up blood cultures Follow-up on wound cultures Continue wound care Continue vancomycin Consulted ID Consulted vascular surgery Past Medical History Past Medical History: Asthma, COPD, Fibromyalgia, GERD/Reflux, Hypertension, Musculoskeletal Disorder, Osteoarthritis (OA), Rheumatoid Arthritis (RA) Additional Past Medical History / Comment(s): Neuropathy feet/legs and hands, bulging discs, chronic low back pain, DDD. History of Any Multi-Drug Resistant Organisms: MRSA Date of last positivie culture/infection: 05/05/21 MDRO Source:: MRSA LEG Past Surgical History: Hysterectomy, Orthopedic Surgery, Tubal Ligation Additional Past Surgical History / Comment(s): Right knee arthroscopic surg x3; LEEP procedure, partial hysterectomy 2009/ovaries intact, colonoscopy 2013, Past Anesthesia/Blood Transfusion Reactions: No Reported Reaction Past Psychological History: Anxiety, Bipolar, Depression Additional Psychological History / Comment(s): [facility] patient. Past history of substance abuse. Did not relate to having children. Does have a pet dog. No travel. The experience. Active tobacco smoker. Denies recreational drug use or alcohol use Smoking Status: Current every day smoker Past Alcohol Use History: Occasional Additional Past Alcohol Use History / Comment(s): Pt. admits to occasional ETOH use. BAT 0. Past Drug Use History: None Reported Additional Drug Use History / Comment(s): Past history of substance abuse. Pt. denies drug use at this time. - Past Family History Mother Family Medical History: Cancer, Hypertension Additional Family Medical History / Comment(s): neuropathy; Mother had Colon Cancer Father Family Medical History: No Reported History Additional Family Medical History / Comment(s): Father is bipolar Medications and Allergies Home Medications Medication Instructions Recorded Confirmed Type Cariprazine HCl [Vraylar] 3 mg PO DAILY 05/04/21 02/28/22 History DULoxetine HCL [Cymbalta] 60 mg PO HS 05/04/21 02/28/22 History Furosemide [Lasix] 20 mg PO DAILY 05/04/21 02/28/22 History Gabapentin 800 mg PO TID 05/04/21 02/28/22 History busPIRone HCL [Buspar] 30 mg PO HS 05/04/21 02/28/22 History cloNIDine HCL [Catapres] 0.1 mg PO HS 08/09/21 02/28/22 History Potassium Chloride [Klor-Con M10] 10 meq PO DAILY 02/28/22 02/28/22 History Vancomycin HCl 2 gm IV Q12H 02/28/22 02/28/22 History Allergies Allergy/AdvReac Type Severity Reaction Status Date / Time latex Allergy Itching Verified 02/28/22 22:50 lithium AdvReac Vomiting Verified 02/28/22 22:50 pregabalin [From Lyrica] AdvReac Vomiting Verified 02/28/22 22:50 topiramate [From Topamax] AdvReac Abdominal Verified 02/28/22 22:50 Pain Physical Exam Vitals: Vital Signs Temp Pulse Resp BP Pulse Ox 03/01/22 07:41 97.6 F 72 19 146/106 98 02/28/22 23:46 78 22 165/124 97 02/28/22 21:34 98.0 F 74 18 153/95 98 Intake and Output 02/28/22 03/01/22 03/01/22 22:59 06:59 14:59 Intake Total 120 Balance 120 Intake: Oral 120 Other: # Voids 0 Weight 158.757 kg 158.757 kg Results CBC & Chem 7: 02/28/22 22:23 02/28/22 22:23 Thrombosis Risk Factor Assmnt - Choose All That Apply Any of the Below Risk Factors Present?: Yes Each Factor Represents 1 point: Age 41-60 years, Obesity (BMI >25), Swollen legs (current) Other Risk Factors: No Other congenital or acquired thrombophilia - If yes, enter type in comment: No Thrombosis Risk Factor Assessment Total Risk Factor Score: 3 Thrombosis Risk Factor Assessment Level: Moderate Risk
[2022-03-01] MEDS ORDERED: VANCOMYCIN 2,000 MG in SODIUM CHLORIDE 0.9% 500 ML 500 ML IVPB SCH (12:00)
[2022-03-01 14:23] VITALS: BP 123/74; PULSE 66; RESP 20; TEMP 98.7
[2022-03-01] MEDS ORDERED: DULoxetine HCL 60 MG CAPSULE.DR PO SCH (21:00)
--- NOTE | 2022-03-01 22:58 | P.CONS ---
History of Present Illness - Reason for Consult Consult date: 03/01/22 MRSA infection Requesting physician: Yoko Rose - Chief Complaint Increasing pain and drainage to the right foot x one day - History of Present Illness Patient is a 46-year-old female with a past medical history significant for asthma and COPD fibromyalgia who was recently admitted to this facility and did have right foot lateral border abscess status post surgical drainage culture positive for MRSA in view of extensive infection the patient did get a PICC line and was advised a four-week course of IV vancomycin the patient is currently infusing at home patient did follow with Dr. Santiago last week in the office and apparently the patient was doing well she did not follow up with me in the office so for patient presenting to the [facility] ER yesterday concerning for increasing right foot pain swelling and drainage that apparently has been getting worse over last 1 day patient denies any history of any trauma however did admit to be on her feet more that day as the patient was preparing for her granddaughter's first birthday, patient been complaining of pain to the right foot to be throbbing intensity of almost 7-8 out of 10 and no radiation with associated redness and drainage, patient presented to the hospital was afebrile and no fever head covered subsequently patient did have a normal white count with no left shift kidney function has been normal bicarb trough is therapeutic at 18.8, patient did have a x-ray of the foot improvement and soft tissue swelling large ulcer crater on the lateral aspect infectious disease was consulted for further management of antibiotic therapy Review of Systems Positive point has been mentioned in the HPI rest of the systems are negative Past Medical History Past Medical History: Asthma, COPD, Fibromyalgia, GERD/Reflux, Hypertension, Musculoskeletal Disorder, Osteoarthritis (OA), Rheumatoid Arthritis (RA) Additional Past Medical History / Comment(s): Neuropathy feet/legs and hands, bulging discs, chronic low back pain, DDD. History of Any Multi-Drug Resistant Organisms: MRSA Year Discovered:: 05/05/21 MDRO Source:: MRSA LEG Past Surgical History: Hysterectomy, Orthopedic Surgery, Tubal Ligation Additional Past Surgical History / Comment(s): Right knee arthroscopic surg x3; LEEP procedure, partial hysterectomy 2009/ovaries intact, colonoscopy 2013, Past Anesthesia/Blood Transfusion Reactions: No Reported Reaction Past Psychological History: Anxiety, Bipolar, Depression Additional Psychological History / Comment(s): [facility] patient. Past history of substance abuse. Did not relate to having children. Does have a pet dog. No travel. The experience. Active tobacco smoker. Denies recreational drug use or alcohol use Smoking Status: Current every day smoker Past Alcohol Use History: Occasional Additional Past Alcohol Use History / Comment(s): Pt. admits to occasional ETOH use. BAT 0. Past Drug Use History: None Reported Additional Drug Use History / Comment(s): Past history of substance abuse. Pt. denies drug use at this time. - Past Family History Mother Family Medical History: Cancer, Hypertension Additional Family Medical History / Comment(s): neuropathy; Mother had Colon Cancer Father Family Medical History: No Reported History Additional Family Medical History / Comment(s): Father is bipolar Medications and Allergies Home Medications Medication Instructions Recorded Confirmed Type Cariprazine HCl [Vraylar] 3 mg PO DAILY 05/04/21 02/28/22 History DULoxetine HCL [Cymbalta] 60 mg PO HS 05/04/21 02/28/22 History Furosemide [Lasix] 20 mg PO DAILY 05/04/21 02/28/22 History Gabapentin 800 mg PO TID 05/04/21 02/28/22 History busPIRone HCL [Buspar] 30 mg PO HS 05/04/21 02/28/22 History cloNIDine HCL [Catapres] 0.1 mg PO HS 08/09/21 02/28/22 History Potassium Chloride [Klor-Con M10] 10 meq PO DAILY 02/28/22 02/28/22 History Vancomycin HCl 2 gm IV Q12H 02/28/22 02/28/22 History Allergies Allergy/AdvReac Type Severity Reaction Status Date / Time latex Allergy Itching Verified 02/28/22 22:50 lithium AdvReac Vomiting Verified 02/28/22 22:50 pregabalin [From Lyrica] AdvReac Vomiting Verified 02/28/22 22:50 topiramate [From Topamax] AdvReac Abdominal Verified 02/28/22 22:50 Pain Physical Exam Vitals: Vital Signs Temp Pulse Resp BP Pulse Ox 03/01/22 07:41 97.6 F 72 19 146/106 98 02/28/22 23:46 78 22 165/124 97 02/28/22 21:34 98.0 F 74 18 153/95 98 Intake and Output 02/28/22 03/01/22 03/01/22 22:59 06:59 14:59 Intake Total 120 Balance 120 Intake: Oral 120 Other: # Voids 0 Weight 158.757 kg 158.757 kg GENERAL DESCRIPTION: Middle-aged female lying in bed, no distress. No tachypnea or accessory muscle of respiration use. HEENT: Shows Pallor , no scleral icterus. Oral mucous membrane is dry. No pharyngeal erythema or thrush NECK: Trachea central, no thyromegaly. LUNGS: Unlabored breathing. Clear to auscultation anteriorly. No wheeze or crackle. HEART: S1, S2, regular rate and rhythm. No loud murmur ABDOMEN: Soft, no tenderness , guarding or rigidity, no organomegaly EXTREMITIES: Right foot overall swelling and redness has improved right foot lateral border wound with some slough tissue no foul-smelling drainage. SKIN: No rash, no masses palpable. NEUROLOGICAL: The patient is awake, alert, oriented x3, mood and affect normal. Results CBC & Chem 7: 02/28/22 22:23 02/28/22 22:23 Assessment and Plan (1) Cellulitis and abscess of toe of right foot Status: Acute Code(s): L03.031 - CELLULITIS OF RIGHT TOE; L02.611 - CUTANEOUS ABSCESS OF RIGHT FOOT SNOMED Code(s): 880250114 Plan: 1patient with a recent diagnosis of the right foot lateral border abscess and cellulitis status post surgical drainage culture positive for MRSA for the patient is currently on IV vancomycin in the outpatient setting, patient who presented to hospital with increasing pain swelling and drainage however the patient did not have any fever white count is normal x-ray did shows improvement in the swelling and clinically overall swelling and redness is improved wound base with some slough tissue but no foul-smelling drainage. 2we will advise local wound care with the guanako followed by moist dressing change daily 3Vancomycin pharmacy to dose target trough of 15 while watching kidney function and Vanco trough closely We will follow on clinical condition and cultures to further adjust medication if needed Thank you for this consultation will follow this patient with you Time with Patient: Greater than 30
--- NOTE | 2022-03-02 08:50 | P.DS ---
Providers Date of admission: 02/28/22 23:23 Expected date of discharge: 03/01/22 Attending physician: Hira Vicente MD Consults: 02/28/22 23:19 Consult Physician Routine Consulting Provider: Will Santiago Consult Reason/Comments: non healing ulcer Do you want consulting provider notified?: Yes Consult Physician Routine Consulting Provider: Yvonne York Consult Reason/Comments: MRSA infection Do you want consulting provider notified?: Yes [facility] Course: Discharge diagnoses; Right lateral foot cellulitis Cellulitis and abscess of toe of right foot Right foot ulcer History of Wound cultures growing MRSA. Fibromyalgia Hypertension Rheumatoid arthritis Asthma/COPD Currently everyday smoker Anxiety/depression and bipolar disorder Morbid obesity BMI 64.0 Hospital course; patient is a 46-year-old lady with past medical significant for asthma, COPD, fibromyalgia who recently was in the hospital for right foot abscess and surrounding cellulitis with failed outpatient treatment and underwent incision and drainage with debridement with vascular surgery. Patient also follow-up with infectious disease Dr. York in his clinic and received a PICC line and was on IV vancomycin. Patient presented to the emergency room with her spouse with complaints of increased right foot pain, swelling and increase in drainage from her right foot abscess. Patient stated that she has been on her feet more yesterday to help prepare for her granddaughter's per day and also her dog jumped on her foot. Patient noticed purulent wound drainage through her foot dressing. She denies any fever or chills at home. Denies any worsening pain in her right foot. Because of the drainage patient became concerned and came to the ER. Initial workup in the ER showed patient to a white count of 7, hemoglobin 14.6, sodium was 9, potassium 4, BUN 13, creatinine 0.7. Patient was started on broad-spectrum antibiotic and was admitted to hospitalist service. Patient was seen by ID, they recommended continuation of current IV antibiotic, they cleared the patient for discharge PHYSICAL EXAMINATION: GENERAL: The patient is alert and oriented x3, not in any acute distress. Well developed, well nourished. HEENT: Pupils are round and equally reacting to light. EOMI. No scleral icterus. No conjunctival pallor. Normocephalic, atraumatic. No pharyngeal erythema. No thyromegaly. CARDIOVASCULAR: S1 and S2 present. No murmurs, rubs, or gallops. PULMONARY: Chest is clear to auscultation, no wheezing or crackles. ABDOMEN: Soft, nontender, nondistended, normoactive bowel sounds. No palpable organomegaly. MUSCULOSKELETAL: No joint swelling or deformity. EXTREMITIES: Right foot bandaged seen NEUROLOGICAL: Gross neurological examination did not reveal any focal deficits. SKIN: No rashes. Patient Condition at Discharge: Stable Plan - Discharge Summary Discharge Rx Participant: Yes New Discharge Prescriptions: Continue Gabapentin 800 mg PO TID busPIRone HCL [Buspar] 30 mg PO HS Furosemide [Lasix] 20 mg PO DAILY DULoxetine HCL [Cymbalta] 60 mg PO HS Cariprazine HCl [Vraylar] 3 mg PO DAILY cloNIDine HCL [Catapres] 0.1 mg PO HS Vancomycin HCl 2 gm IV Q12H Potassium Chloride [Klor-Con M10] 10 meq PO DAILY Discharge Medication List Cariprazine HCl [Vraylar] 3 mg PO DAILY 05/04/21 [History] DULoxetine HCL [Cymbalta] 60 mg PO HS 05/04/21 [History] Furosemide [Lasix] 20 mg PO DAILY 05/04/21 [History] Gabapentin 800 mg PO TID 05/04/21 [History] busPIRone HCL [Buspar] 30 mg PO HS 05/04/21 [History] cloNIDine HCL [Catapres] 0.1 mg PO HS 08/09/21 [History] Potassium Chloride [Klor-Con M10] 10 meq PO DAILY 02/28/22 [History] Vancomycin HCl 2 gm IV Q12H 02/28/22 [History] Follow up Appointment(s)/Referral(s): Will Santiago MD [STAFF PHYSICIAN] - 1 Week (please see him tomorrow in wound care as scheduled ) Yvonne York MD [STAFF PHYSICIAN] - 1 Week (please call to [place] for an appointment ) Thomas Bhat MD [Primary Care Provider] - 1-2 days (please call tomorrow for an appointment ) Patient Instructions/Handouts: MRSA (Methicillin-Resistant Staphylococcus Aureus) (GEN), Wound Infection (DC), Cellulitis (GEN) Activity/Diet/Wound Care/Special Instructions: Keep your same appointment at the wound care center tomorrow 03/02/2022 Discharged on same home medications Discharge Disposition: HOME SELF-CARE
== END 2022-03-01 18:55 | disposition home or self-care (01) ==
LOC: EC 21:21 → 6NMEDSUR 23:23
PROVIDERS: ADMIT Internal Medicine; ATTEND Internal Medicine
DX: L02.611 Cutaneous abscess of right foot (principal); L03.115 Cellulitis of right lower limb; L97.519 Non-pressure chronic ulcer of other part of right foot with unspecified severity; B95.62 Methicillin resistant Staphylococcus aureus infection as the cause of diseases classified elsewhere; I10 Essential (primary) hypertension; G62.9 Polyneuropathy, unspecified; M79.7 Fibromyalgia; M06.9 Rheumatoid arthritis, unspecified; K21.9 Gastro-esophageal reflux disease without esophagitis; M19.90 Unspecified osteoarthritis, unspecified site; G89.29 Other chronic pain; M54.50 Low back pain, unspecified; F31.9 Bipolar disorder, unspecified; F41.9 Anxiety disorder, unspecified; F17.200 Nicotine dependence, unspecified, uncomplicated; Z91.199 Patient's noncompliance with other medical treatment and regimen due to unspecified reason; E66.01 Morbid (severe) obesity due to excess calories; Z68.44 Body mass index [BMI] 60.0-69.9, adult; Z79.899 Other long term (current) drug therapy; Z91.040 Latex allergy status; Z88.8 Allergy status to other drugs, medicaments and biological substances; Z90.711 Acquired absence of uterus with remaining cervical stump; Z98.51 Tubal ligation status; Z98.890 Other specified postprocedural states; Z86.14 Personal history of Methicillin resistant Staphylococcus aureus infection; Z95.828 Presence of other vascular implants and grafts; Z80.0 Family history of malignant neoplasm of digestive organs; Z82.49 Family history of ischemic heart disease and other diseases of the circulatory system; Z81.8 Family history of other mental and behavioral disorders; Z82.0 Family history of epilepsy and other diseases of the nervous system
CPT/HCPCS: 96376 ×2; 96366 ×2; 96365; 96375; 99284; 36415; 80048; 85025; 80202; 73630; G0378 ×2; J3370; J2270 ×2

== ENCOUNTER 2022-03-07 18:31 | Emergency (ER) | payer MEDICARE, OTHER ==
[2022-03-07 18:42] VITALS: RESP 16
[2022-03-07] MEDS ORDERED: HYDROcodone/APAP 5-325MG 1 EACH TAB PO STA (18:59)
--- NOTE | 2022-03-07 19:13 | XR ---
EXAMINATION TYPE: XR foot complete RT DATE OF EXAM: 03/07/2022 COMPARISON: 02/28/2022 HISTORY: Pain. Infection TECHNIQUE: FINDINGS: There is plantar and Achilles calcaneal spurring. There is soft tissue swelling of the fore foot. Metatarsals are intact. No focal bone destruction. There is soft tissue swelling and ulceration over the lateral aspect of the midfoot. IMPRESSION: Soft tissue swelling and ulceration similar to old exam. No fracture. No sign of osteomye litis.
[2022-03-07 19:29] LABS: Basophils # (A) 0.1 k/uL (0-0.2); Basophils % (A) 1 %; Eosinophils # (A) 0.7 k/uL (0-0.7); Eosinophils % (A) 9 %; HCT 45.6 % (34.0-46.0); HGB 15.3 gm/dL (11.4-16.0); Lymphocytes # (A) 1.8 k/uL (1.0-4.8); Lymphocytes % (A) 24 %; MCH 30.1 pg (25.0-35.0); MCHC 33.6 g/dL (31.0-37.0); MCV 89.7 fL (80.0-100.0); Mean Platelet Volume 7.3; Monocytes # (A) 0.5 k/uL (0-1.0); Monocytes % (A) 7 %; Neutrophils # (A) 4.2 k/uL (1.3-7.7); Neutrophils % (A) 57 %; Platelet Count 209 k/uL (150-450); RBC 5.09 m/uL (3.80-5.40); RDW 13.6 % (11.5-15.5); WBC 7.4 k/uL (3.8-10.6)
[2022-03-07 19:44] LABS: ALT 23 U/L (4-34); African American GFR (CKD) >90 (>60 ml/min/1.73 sqM); Albumin 4.2 g/dL (3.5-5.0); Anion Gap 9 mmol/L; Blood Urea Nitrogen 11 mg/dL (7-17); Calcium 8.7 mg/dL (8.4-10.2); Carbon Dioxide 24 mmol/L (22-30); Chloride 103 mmol/L (98-107); Glucose 129 mg/dL (74-99); Non-African American GFR(CKD) >90 (>60 ml/min/1.73 sqM); Sodium 136 mmol/L (137-145); Total Bilirubin 0.6 mg/dL (0.2-1.3); Total Protein 7.8 g/dL (6.3-8.2)
[2022-03-07 19:45] LABS: AST 24 U/L (14-36); Alkaline Phosphatase 67 U/L (38-126); Potassium 4.4 mmol/L (3.5-5.1)
[2022-03-07 19:57] LABS: C Reactive Protein 0.8 mg/dL (<1.0)
--- NOTE | 2022-03-07 20:18 | ED ---
Wound/Laceration HPI - General Chief Complaint: Wound/Laceration Stated Complaint: Post-Op Foot Pain Time Seen by Provider: 03/07/22 18:48 Source: patient, RN notes reviewed Mode of arrival: wheelchair - History of Present Illness Initial Comments: This is a 46 year old female who presents to the emergency department for right foot pain. She had a MRSA infection to the right foot that had been debrided by Dr. Santiago on 02/11. She had a PICC line placed before discharged and was started on vancomycin, which she has been on for approximately 3 weeks. She has wound dressing changes daily, and when she had her dressing changed today, she had a large flap of skin come off, and they noticed another wound under the skin. She does have severe pain in the right foot, which became worse over the last day. She takes Gabapentin, however this has not been effective. She has not had any fevers or chills. Her largest concern is that she does not want to risk another severe infection that could cause her to lose her foot. Denies any fevers, chills, sore throat, cough, dyspnea, chest pain, palpitations, abdominal pain, nausea, vomiting, diarrhea, back pain, or headaches. Extremity Location: Right: Foot Patient Tetanus UTD: Yes - Related Data Home Medications Medication Instructions Recorded Confirmed Cariprazine HCl [Vraylar] 3 mg PO DAILY 05/04/21 03/07/22 DULoxetine HCL [Cymbalta] 60 mg PO HS 05/04/21 03/07/22 Furosemide [Lasix] 20 mg PO DAILY 05/04/21 03/07/22 Gabapentin 800 mg PO TID 05/04/21 03/07/22 busPIRone HCL [Buspar] 30 mg PO HS 05/04/21 03/07/22 cloNIDine HCL [Catapres] 0.1 mg PO HS 08/09/21 03/07/22 Potassium Chloride [Klor-Con M10] 10 meq PO DAILY 02/28/22 03/07/22 Vancomycin HCl 2 gm IV Q12H 02/28/22 03/07/22 Collagenase [Santyl Ointment] 1 applic TOPICAL DAILY 03/07/22 03/07/22 Allergies Allergy/AdvReac Type Severity Reaction Status Date / Time latex Allergy Itching Verified 03/07/22 22:10 lithium AdvReac Vomiting Verified 03/07/22 22:10 pregabalin [From Lyrica] AdvReac Vomiting Verified 03/07/22 22:10 topiramate [From Topamax] AdvReac Abdominal Verified 03/07/22 22:10 Pain Review of Systems ROS Statement: Those systems with pertinent positive or pertinent negative responses have been documented in the HPI. ROS Other: All systems not noted in ROS Statement are negative. Past Medical History Past Medical History: Asthma, COPD, Fibromyalgia, GERD/Reflux, Hypertension, Musculoskeletal Disorder, Osteoarthritis (OA), Rheumatoid Arthritis (RA) Additional Past Medical History / Comment(s): Neuropathy feet/legs and hands, bulging discs, chronic low back pain, DDD. History of Any Multi-Drug Resistant Organisms: MRSA Date of last positivie culture/infection: 05/05/21 MDRO Source:: MRSA LEG Past Surgical History: Hysterectomy, Orthopedic Surgery, Tubal Ligation Additional Past Surgical History / Comment(s): Right knee arthroscopic surg x3; LEEP procedure, partial hysterectomy 2009/ovaries intact, colonoscopy 2013, Past Anesthesia/Blood Transfusion Reactions: No Reported Reaction Past Psychological History: Anxiety, Bipolar, Depression Smoking Status: Current every day smoker Past Alcohol Use History: Occasional Past Drug Use History: None Reported - Past Family History Mother Family Medical History: Cancer, Hypertension Additional Family Medical History / Comment(s): neuropathy; Mother had Colon Cancer Father Family Medical History: No Reported History Additional Family Medical History / Comment(s): Father is bipolar General Exam Limitations: no limitations General appearance: alert, in no apparent distress Head exam: Present: atraumatic, normocephalic, normal inspection Respiratory exam: Present: normal lung sounds bilaterally. Absent: respiratory distress, wheezes, rales, rhonchi, stridor Cardiovascular Exam: Present: regular rate, normal rhythm, normal heart sounds. Absent: systolic murmur, diastolic murmur, rubs, gallop, clicks Extremities exam: Present: other (Large open healing ulceration to the lateral most aspect of the right foot. There is a large flap of skin on the bottom of the right foot in the center, with another ulceration underneath the skin towards the lateral aspect of the foot. Mild surrounding erythema.) Neurological exam: Present: alert, oriented X3, CN II-XII intact Psychiatric exam: Present: normal affect, normal mood Course Vital Signs 03/07/22 03/07/22 18:40 22:22 Temperature 97.6 F 98.4 F Pulse Rate 86 82 Respiratory 16 16 Rate Blood Pressure 168/100 144/86 O2 Sat by Pulse 100 98 Oximetry Medical Decision Making - Medical Decision Making This is a 46-year-old female who presents to the emergency department for a right foot infection. Was pt. sent in by a medical professional or institution? @ -No Did you speak to anyone other than the patient for history? @ -Her Fiance Did you review nursing and triage notes? @ -Yes, and I agree, it is accurate with regards to the patient's symptoms. Were old charts reviewed? @ -Yes, admission records from 02/28-03/02. Differential Diagnosis? @ -Differential Foot Infection: Abscess, ulceration, osteomyelitis, cellulitis, this is not meant to be an all- inclusive list. X-rays interpreted by me (1pt min.)? @ -XR of the right foot obtained and my interpretation reveals no evidence of bony destruction or subcutaneous gas formation. What testing was considered but not performed? (CT, X-rays, U/S, labs)? Why? @ -None What meds were considered but not given? Why? @ -None Did you discuss the management of the patient with other professionals? @ -No Did you reconcile home meds? @ -No Was smoking cessation discussed for >3mins.? @ -No Was critical care preformed (if so, how long)? @ -No Were there social determinants of health that impacted care today? How? (Homelessness, low income, unemployed, alcoholism, drug addiction, transportation, low edu. Level, literacy, decrease access to med. care, alf, rehab)? @ -No Was there de-escalation of care discussed even if they declined? (Discuss DNR or withdrawal of care, Hospice)? @ -No What co-morbidities impacted this encounter? (DM, HTN, Smoking, COPD, CAD, Cancer, CVA, Hep., AIDS, mental health diagnosis, sleep apnea, morbid obesity)? @ -Morbid obesity, osteoarthritis, rheumatoid arthritis, peripheral neuropathy Was patient admitted / discharged? @ -Discharged. Lab work obtained and found to be nonactionable including no leukocytosis, elevated lactic acid, or elevated inflammatory markers. Her pain was managed with morphine. X-rays reveal no evidence of acute changes to suggest osteomyelitis or necrotizing fasciitis. I did offer the patient admission for reevaluation by vascular surgery in light of the new lesion, however the patient declined because she has a follow-up appointment scheduled on Wednesday (03/09). She will continue on Vancomycin via the PICC line and follow up with Dr. Santiago as scheduled. Undiagnosed new problem with uncertain prognosis? @ -None Drug Therapy requiring intensive monitoring for toxicity (Heparin, Nitro, Insulin, Cardizem)? @ -None Were any procedures done? @ -None Diagnosis/symptom? @ -Right foot infection Acute, or Chronic, or Acute on Chronic? @ -Chronic Uncomplicated (without systemic symptoms) or Complicated (systemic symptoms)? @ -Uncomplicated Side effects of treatment? @ -None Exacerbation, Progression, or Severe Exacerbation] @ -Exacerbation Poses a threat to life or bodily function? @ -No Return precautions reviewed in depth, the patient is instructed to return to the emergency department with any new, worsening, or concerning symptoms. Patient verbalized understanding. This case was discussed in detail with the attending ED physician, Dr. Casas. Presentation, findings, and treatment plan discussed in detail as well. - Lab Data Result diagrams: 03/07/22 19:21 03/07/22 19:21 Lab Results 03/07/22 03/07/22 03/07/22 Range/Units 19:21 19: 19:21 WBC 7.4 (3.8-10.6) k/uL RBC 5.09 (3.80-5.40) m/uL Hgb 15.3 (11.4-16.0) gm/dL Hct 45.6 (34.0-46.0) % MCV 89.7 (80.0-100.0) fL MCH 30.1 (25.0-35.0) pg MCHC 33.6 (31.0-37.0) g/dL RDW 13.6 (11.5-15.5) % Plt Count 209 (150-450) k/uL MPV 7.3 Neutrophils % 57 % Lymphocytes % 24 % Monocytes % 7 % Eosinophils % 9 % Basophils % 1 % Neutrophils # 4.2 (1.3-7.7) k/uL Lymphocytes # 1.8 (1.0-4.8) k/uL Monocytes # 0.5 (0-1.0) k/uL Eosinophils # 0.7 (0-0.7) k/uL Basophils # 0.1 (0-0.2) k/uL ESR 8 (0-20) mm/hr Sodium 136 L (137-145) mmol/L Potassium 4.4 (3.5-5.1) mmol/L Chloride 103 (98-107) mmol/L Carbon Dioxide 24 (22-30) mmol/L Anion Gap 9 mmol/L BUN 11 (7-17) mg/dL Creatinine 0.61 (0.52-1.04) mg/dL Est GFR (CKD-EPI)AfAm >90 (>60 ml/min/1.73 sqM) Est GFR (CKD-EPI)NonAf >90 (>60 ml/min/1.73 sqM) Glucose 129 H (74-99) mg/dL Plasma Lactic Acid Alessio 1.9 (0.7-2.0) mmol/L Calcium 8.7 (8.4-10.2) mg/dL Total Bilirubin 0.6 (0.2-1.3) mg/dL AST 24 (14-36) U/L ALT 23 (4-34) U/L Alkaline Phosphatase 67 (38-126) U/L C-Reactive Protein 0.8 (<1.0) mg/dL Total Protein 7.8 (6.3-8.2) g/dL Albumin 4.2 (3.5-5.0) g/dL - Radiology Data Radiology results: report reviewed, image reviewed Disposition Clinical Impression: MRSA infection, Right foot ulcer Disposition: HOME SELF-CARE Additional Instructions: Return to the emergency department with any new, worsening, or concerning symptoms. Follow up with your primary care provider in 1-[address] Santiago as scheduled. Continue with wound care and vancomycin as instructed. Is patient prescribed a controlled substance at d/c from ED?: No Referrals: Thomas Bhat MD [Primary Care Provider] - 1-2 days
[2022-03-07] MEDS ORDERED: MORPHINE SULFATE 2 MG/ML SYRINGE IVP STA (20:56)
[2022-03-07] MEDS ORDERED: KETOROLAC 15 MG/ML 1 ML VIAL IVP STA (20:56)
[2022-03-07 21:01] LABS: Erythrocyte Sedimentation Rate 8 mm/hr (0-20)
[2022-03-07 22:23] VITALS: BP 144/86; PULSE 82; TEMP 98.4
== END 2022-03-07 22:22 | disposition home or self-care (01) ==
LOC: EC 18:31
DX: A49.02 Methicillin resistant Staphylococcus aureus infection, unspecified site (principal); L97.519 Non-pressure chronic ulcer of other part of right foot with unspecified severity; J44.9 Chronic obstructive pulmonary disease, unspecified; I10 Essential (primary) hypertension; F41.9 Anxiety disorder, unspecified; F31.9 Bipolar disorder, unspecified; F17.200 Nicotine dependence, unspecified, uncomplicated; Z91.040 Latex allergy status; Z88.8 Allergy status to other drugs, medicaments and biological substances; Z79.899 Other long term (current) drug therapy
CPT/HCPCS: 36415; 80053; 85652; 83605; 85025; 86140; 73630; 99284; 96374; 96375; J2270; J1885

== ENCOUNTER 2022-04-22 03:42 | Emergency (ER) | payer MEDICARE, OTHER ==
[2022-04-22 03:55] VITALS: TEMP 97.9
[2022-04-22] MEDS ORDERED: MORPHINE SULFATE 4 MG/ML SYRINGE IVP STA (05:01)
--- NOTE | 2022-04-22 05:44 | XR ---
EXAMINATION TYPE: XR foot complete RT DATE OF EXAM: 04/22/2022 COMPARISON: 03/07/2022 HISTORY: Foot pain TECHNIQUE: 3 views FINDINGS: There is soft tissue swelling around the lateral aspect of the midfoot. I see no fracture o r dislocation. No focal bone destruction. There is plantar and Achilles calcaneal spurring. IMPRESSION: Soft tissue swelling around the mid foot. No fracture. No significant change.
[2022-04-22 05:53] LABS: Basophils # (A) 0.1 k/uL (0-0.2); Basophils % (A) 1 %; Eosinophils # (A) 0.3 k/uL (0-0.7); Eosinophils % (A) 5 %; HCT 46.5 % (34.0-46.0); HGB 14.9 gm/dL (11.4-16.0); Lymphocytes # (A) 1.9 k/uL (1.0-4.8); Lymphocytes % (A) 31 %; MCH 29.8 pg (25.0-35.0); MCV 93.1 fL (80.0-100.0); Mean Platelet Volume 7.6; Monocytes # (A) 0.5 k/uL (0-1.0); Monocytes % (A) 9 %; Neutrophils # (A) 3.3 k/uL (1.3-7.7); Neutrophils % (A) 53 %; Platelet Count 237 k/uL (150-450); RBC 4.99 m/uL (3.80-5.40); RDW 13.5 % (11.5-15.5); WBC 6.2 k/uL (3.8-10.6)
[2022-04-22 05:58] LABS: ALT 24 U/L (4-34); AST 29 U/L (14-36); African American GFR (CKD) >90 (>60 ml/min/1.73 sqM); Albumin 3.9 g/dL (3.5-5.0); Alkaline Phosphatase 61 U/L (38-126); Anion Gap 5 mmol/L; Blood Urea Nitrogen 14 mg/dL (7-17); Calcium 8.8 mg/dL (8.4-10.2); Carbon Dioxide 29 mmol/L (22-30); Chloride 104 mmol/L (98-107); Glucose 97 mg/dL (74-99); Non-African American GFR(CKD) >90 (>60 ml/min/1.73 sqM); Sodium 138 mmol/L (137-145); Total Bilirubin 0.5 mg/dL (0.2-1.3); Total Protein 7.3 g/dL (6.3-8.2)
[2022-04-22 06:05] LABS: Potassium 4.4 mmol/L (3.5-5.1)
[2022-04-22] MEDS ORDERED: HYDROmorphone 1 MG/ML 1 ML SYRINGE IVP STA (06:05)
[2022-04-22 07:18] LABS: Erythrocyte Sedimentation Rate 7 mm/hr (0-20)
--- NOTE | 2022-04-22 07:38 | ED ---
Extremity Problem HPI - General Chief complaint: Extremity Problem,Nontraumatic Stated complaint: Right Foot MRSA infection Time Seen by Provider: 04/22/22 04:00 Source: patient Mode of arrival: wheelchair Limitations: no limitations - History of Present Illness Initial comments: 46-year-old female past history of lower extremity neuropathy, chronic nonh ealing foot wound to presents emergency department reporting a wound on her right foot. States that she has been dealing with intense pain today at the site of her wound. She does follow with wound care weekly. They did perform a debridement of her callus on Wednesday. She did not take any pain medications after her procedure. Reports that her pain was somewhat controlled last night that she required hospital evaluation. She denies any worsening drainage from the site. She is ambulatory on the extremity. She denies any calf pain or swelling. No history of DVT or PE. She denies any fevers. Taking her medications as directed. Not currently on any antibiotics. Has previously been treated for MRSA with vancomycin through a PICC line. No other alleviating, precipitating or modifying factors - Related Data Home Medications Medication Instructions Recorded Confirmed Cariprazine HCl [Vraylar] 3 mg PO DAILY 05/04/21 03/07/22 DULoxetine HCL [Cymbalta] 60 mg PO HS 05/04/21 03/07/22 Furosemide [Lasix] 20 mg PO DAILY 05/04/21 03/07/22 Gabapentin 800 mg PO TID 05/04/21 03/07/22 busPIRone HCL [Buspar] 30 mg PO HS 05/04/21 03/07/22 cloNIDine HCL [Catapres] 0.1 mg PO HS 08/09/21 03/07/22 Potassium Chloride [Klor-Con M10] 10 meq PO DAILY 02/28/22 03/07/22 Vancomycin HCl 2 gm IV Q12H 02/28/22 03/07/22 Collagenase [Santyl Ointment] 1 applic TOPICAL DAILY 03/07/22 03/07/22 Previous Rx's Medication Instructions Recorded HYDROcodone/APAP 10-325MG [Smoot 1 tab PO Q6H PRN #12 tab 04/22/22 10-325] Allergies Allergy/AdvReac Type Severity Reaction Status Date / Time latex Allergy Itching Verified 03/07/22 22:10 lithium AdvReac Vomiting Verified 03/07/22 22:10 pregabalin [From Lyrica] AdvReac Vomiting Verified 03/07/22 22:10 topiramate [From Topamax] AdvReac Abdominal Verified 03/07/22 22:10 Pain Review of Systems ROS Statement: Those systems with pertinent positive or pertinent negative responses have been documented in the HPI. ROS Other: All systems not noted in ROS Statement are negative. Past Medical History Past Medical History: Asthma, COPD, Fibromyalgia, GERD/Reflux, Hypertension, Musculoskeletal Disorder, Osteoarthritis (OA), Rheumatoid Arthritis (RA) Additional Past Medical History / Comment(s): Neuropathy feet/legs and hands, bulging discs, chronic low back pain, DDD. History of Any Multi-Drug Resistant Organisms: MRSA Date of last positivie culture/infection: 05/05/21 MDRO Source:: MRSA LEG Past Surgical History: Hysterectomy, Orthopedic Surgery, Tubal Ligation Additional Past Surgical History / Comment(s): Right knee arthroscopic surg x3; LEEP procedure, partial hysterectomy 2009/ovaries intact, colonoscopy 2013, Past Anesthesia/Blood Transfusion Reactions: No Reported Reaction Past Psychological History: Anxiety, Bipolar, Depression Smoking Status: Current every day smoker Past Alcohol Use History: Occasional Past Drug Use History: None Reported - Past Family History Mother Family Medical History: Cancer, Hypertension Additional Family Medical History / Comment(s): neuropathy; Mother had Colon Cancer Father Family Medical History: No Reported History Additional Family Medical History / Comment(s): Father is bipolar General Exam Limitations: no limitations General appearance: alert, in no apparent distress Respiratory exam: Present: normal lung sounds bilaterally. Absent: respiratory distress, wheezes, rales, rhonchi, stridor Cardiovascular Exam: Present: regular rate, normal rhythm, normal heart sounds. Absent: systolic murmur, diastolic murmur, rubs, gallop, clicks GI/Abdominal exam: Present: soft, normal bowel sounds. Absent: distended, tenderness, guarding, rebound, rigid Extremities exam: Present: other (chronic callus lateral right foot - 6 x 5 cm. Central area of debridement. No purulence. No redness or warmth. No joint swelling. No bleeding) Course Vital Signs 04/22/22 04/22/22 04/22/22 03:51 06:00 07:58 Temperature 97.9 F Pulse Rate 74 75 70 Respiratory 18 16 20 Rate Blood Pressure 149/86 108/75 137/94 O2 Sat by Pulse 98 97 96 Oximetry Medical Decision Making - Medical Decision Making Was pt. sent in by a medical professional or institution (MARSHALL Williamson, HOUSE PIPING INSPECTOR, urgent care, hospital, or retirement...) When possible be specific @ -No Did you speak to anyone other than the patient for history (EMS, parent, family, police, friend...)? What history was obtained from this source @ -No Did you review nursing and triage notes (agree or disagree)? Why? @ -I reviewed and agree with nursing and triage notes Were old charts reviewed (outside hosp., previous admission, EMS record, old EKG, old radiological studies, urgent care reports/EKG's, retirement records)? Report findings @ -Old charts were reviewed Differential Diagnosis (chest pain, altered mental status, abdominal pain women, abdominal pain men, vaginal bleeding, weakness, fever, dyspnea, syncope, headache, dizziness, GI bleed, back pain, seizure, CVA, palpatations, mental health, musculoskeletal)? @ -cellulitis, gangrene, chornic wound, diabetic ulcer, osteomyelitis EKG interpreted by me (3pts min.). @ -Not done X-rays interpreted by me (1pt min.). @ -Yes CT interpreted by me (1pt min.). @ -None done U/S interpreted by me (1pt. min.). @ -None done What testing was considered but not performed or refused? (CT, X-rays, U/S, labs)? Why? @ -None What meds were considered but not given or refused? Why? @ -None Did you discuss the management of the patient with other professionals (professionals i.e. MARSHALL Williamson, HOUSE PIPING INSPECTOR, lab, RT, psych nurse, criminal justice social worker, community education specialist, teacher, division officer weapons department, case management director)? Give summary @ -No Was smoking cessation discussed for >3mins.? @ -No Was critical care preformed (if so, how long)? @ -No Were there social determinants of health that impacted care today? How? (Homelessness, low income, unemployed, alcoholism, drug addiction, transportation, low edu. Level, literacy, decrease access to med. care, penitentiary, rehab)? @ -No Was there de-escalation of care discussed even if they declined (Discuss DNR or withdrawal of care, Hospice)? DNR status @ -No What co-morbidities impacted this encounter? (DM, HTN, Smoking, COPD, CAD, Cancer, CVA, ARF, Chemo, Hep., AIDS, mental health diagnosis, sleep apnea, morbid obesity)? @ -Htn, neuropathy Was patient admitted / discharged? Hospital course, mention meds given and route, prescriptions, significant lab abnormalities, going to OR and other pertinent info. @On arrival patient is placed into room 24. History and physical exam was perf ormed. She was dosed morphine for pain control. IV is established laboratory studies are conducted. X-rays performed. Laboratory studies are reviewed and within normal limits. Results are discussed patient. She is requesting something additional for pain control. She was given 1 mg of Dilaudid. I did discuss diagnosis, differential treatment options. This does not appear to be any surrounding cellulitis at the patient site of her debridement. Recommended holding antibiotics at this time as patient has been on extensive antibiotic treatment in the past. Patient was agreeable to this. She does follow up with wound care every Wednesday. Instructed to follow-up for evaluation of her wound. She'll be given a short course of Smoot to take for pain control. Return for any new or worsening symptoms. Patient was agreeable to plan to discharge home stable condition Undiagnosed new problem with uncertain prognosis? @ -No Drug Therapy requiring intensive monitoring for toxicity (Heparin, Nitro, Insulin, Cardizem)? @ -No Were any procedures done? @ -No Diagnosis/symptom? @ -acute/chronic right foot pain, right foot nonhealing wound Acute, or Chronic, or Acute on Chronic? @ -acute on chronic Uncomplicated (without systemic symptoms) or Complicated (systemic symptoms)? @ -uncomplicated Side effects of treatment? @ -Allergic reaction Exacerbation, Progression, or Severe Exacerbation? @ -No Poses a threat to life or bodily function? How? (Chest pain, [place], [place], pneumonia, PE, COPD, DKA, ARF, appy, cholecystitis, CVA, Diverticulitis, Homicidal, Suicidal, threat to staff... and all critical care pts) @ -No - Lab Data Result diagrams: 04/22/22 05:33 04/22/22 05:33 Lab Results 04/22/22 04/22/22 04/22/22 Range/Units 05:33 05:33 05:33 WBC 6.2 (3.8-10.6) k/uL RBC 4.99 (3.80-5.40) m/uL Hgb 14.9 (11.4-16.0) gm/dL Hct 46.5 H (34.0-46.0) % MCV 93.1 (80.0-100.0) fL MCH 29.8 (25.0-35.0) pg MCHC 32.0 (31.0-37.0) g/dL RDW 13.5 (11.5-15.5) % Plt Count 237 (150-450) k/uL MPV 7.6 Neutrophils % 53 % Lymphocytes % 31 % Monocytes % 9 % Eosinophils % 5 % Basophils % 1 % Neutrophils # 3.3 (1.3-7.7) k/uL Lymphocytes # 1.9 (1.0-4.8) k/uL Monocytes # 0.5 (0-1.0) k/uL Eosinophils # 0.3 (0-0.7) k/uL Basophils # 0.1 (0-0.2) k/uL ESR 7 (0-20) mm/hr Sodium 138 (137-145) mmol/L Potassium 4.4 (3.5-5.1) mmol/L Chloride 104 (98-107) mmol/L Carbon Dioxide 29 (22-30) mmol/L Anion Gap 5 mmol/L BUN 14 (7-17) mg/dL Creatinine 0.70 (0.52-1.04) mg/dL Est GFR (CKD-EPI)AfAm >90 (>60 ml/min/1.73 sqM) Est GFR (CKD-EPI)NonAf >90 (>60 ml/min/1.73 sqM) Glucose 97 (74-99) mg/dL Plasma Lactic Acid Alessio 0.9 (0.7-2.0) mmol/L Calcium 8.8 (8.4-10.2) mg/dL Total Bilirubin 0.5 (0.2-1.3) mg/dL AST 29 (14-36) U/L ALT 24 (4-34) U/L Alkaline Phosphatase 61 (38-126) U/L C-Reactive Protein 1.0 H (<1.0) mg/dL Total Protein 7.3 (6.3-8.2) g/dL Albumin 3.9 (3.5-5.0) g/dL Disposition Clinical Impression: Wound of right foot Disposition: HOME SELF-CARE Condition: Stable Instructions (If sedation given, give patient instructions): Chronic Wound Care (ED) Additional Instructions: Please evaluate your wound daily. Follow up with the wound care clinic. Take the pain medications as directed and return for any new or worsening symptoms Prescriptions: HYDROcodone/APAP 10-325MG [Smoot 10-325] 1 tab PO Q6H PRN #12 tab PRN Reason: pain Is patient prescribed a controlled substance at d/c from ED?: Yes When asked, does pt state using other controlled substances?: No If prescribed controlled substance>3 days was MAPS reviewed?: Prescribed <3 Days Referrals: Thomas Bhat MD [Primary Care Provider] - 1-2 days Time of Disposition: 07:37
[2022-04-22 08:00] VITALS: BP 137/94; PULSE 70; RESP 20
== END 2022-04-22 07:57 | disposition home or self-care (01) ==
LOC: EC 03:42
DX: S91.301A Unspecified open wound, right foot, initial encounter (principal); J44.9 Chronic obstructive pulmonary disease, unspecified; I10 Essential (primary) hypertension; F41.9 Anxiety disorder, unspecified; F31.9 Bipolar disorder, unspecified; F17.200 Nicotine dependence, unspecified, uncomplicated; Z79.899 Other long term (current) drug therapy; Z91.040 Latex allergy status; Z88.6 Allergy status to analgesic agent; Z88.8 Allergy status to other drugs, medicaments and biological substances; X58.XXXA Exposure to other specified factors, initial encounter
CPT/HCPCS: 36415; 80053; 85652; 83605; 85025; 86140; 73630; 99284; 96374; 96375; J2270; J1170

== ENCOUNTER 2022-08-13 20:06 | Emergency (ER) | payer MEDICARE, OTHER ==
[2022-08-13 20:16] VITALS: BP 164/87; TEMP 98
[2022-08-13] MEDS ORDERED: IPRATROPIUM-ALBUTEROL 3 ML NEB INHALATION STA (20:55)
[2022-08-13 21:20] LABS: Basophils # (A) 0.1 k/uL (0-0.2); Basophils % (A) 1 %; Eosinophils # (A) 0.4 k/uL (0-0.7); Eosinophils % (A) 4 %; HCT 48.6 % (34.0-46.0); HGB 15.9 gm/dL (11.4-16.0); Lymphocytes # (A) 1.9 k/uL (1.0-4.8); Lymphocytes % (A) 20 %; MCH 30.6 pg (25.0-35.0); MCHC 32.7 g/dL (31.0-37.0); MCV 93.6 fL (80.0-100.0); Mean Platelet Volume 8.4; Monocytes # (A) 0.4 k/uL (0-1.0); Monocytes % (A) 4 %; Neutrophils # (A) 7.1 k/uL (1.3-7.7); Neutrophils % (A) 71 %; Platelet Count 214 k/uL (150-450); RDW 13.5 % (11.5-15.5)
[2022-08-13 21:38] LABS: ALT 26 U/L (4-34); African American GFR (CKD) >90 (>60 ml/min/1.73 sqM); Albumin 3.7 g/dL (3.5-5.0); Anion Gap 11 mmol/L; Blood Urea Nitrogen 14 mg/dL (7-17); Calcium 8.9 mg/dL (8.4-10.2); Carbon Dioxide 25 mmol/L (22-30); Chloride 101 mmol/L (98-107); Glucose 160 mg/dL (74-99); Non-African American GFR(CKD) >90 (>60 ml/min/1.73 sqM); Sodium 137 mmol/L (137-145); Total Bilirubin 0.5 mg/dL (0.2-1.3); Total Protein 7.1 g/dL (6.3-8.2)
[2022-08-13 21:42] LABS: Partial Thromboplastin Time 23.3 sec (22.0-30.0); Prothrombin Time 10.1 sec (9.0-12.0)
--- NOTE | 2022-08-13 21:51 | XR ---
EXAMINATION TYPE: XR chest 2V DATE OF EXAM: 08/13/2022 COMPARISON: 07/20/2021 HISTORY: Chest pain TECHNIQUE: Frontal and lateral views of the chest are obtained. FINDINGS: Increased density right medial lung base may reflect developing infiltrate. Correlate clinically. No evidence for pneumothorax. No pleural effusion. The cardiac silhouette size is within normal limits. The osseous structures are grossly intact. IMPRESSION: 1. Increased density right medial lung base may reflect developing infiltrate. Correlate clinically.
[2022-08-13 22:00] LABS: AST 27 U/L (14-36); Alkaline Phosphatase 66 U/L (38-126)
[2022-08-13] MEDS ORDERED: methylPREDNISolone SOD SUCCI 40 MG/ML 1 ML VIAL IV STA (22:15)
[2022-08-13] MEDS ORDERED: AZITHROMYCIN 500 MG TAB PO STA (22:15)
--- NOTE | 2022-08-13 22:18 | ED ---
General Adult HPI - General Chief complaint: Shortness of Breath Stated complaint: SOB Time Seen by Provider: 08/13/22 20:22 Source: patient, RN notes reviewed, old records reviewed Mode of arrival: wheelchair Limitations: no limitations - History of Present Illness Initial comments: Patient is a 46-year-old female who presents emergency Department with a one- month history of atypical chest pain, intermittent shortness breath, as well as cough. States she is a tobacco user. Has a history of asthma. Has never been intubated for asthma admitted to the hospital for asthma. Has noticed a cough that is intermittently productive of a colored sputum. Denies any fevers. Denies any nausea or vomiting. Denies abdominal pain. States she gets a chest tightness across her chest. No radiation. Comes and goes. No known palliative or provocative factors. No cardiac history. No history of blood clots. No recent long distance travel. Denies orthopnea. Denies PND. Denies lower extremity edema. Presents for further evaluation at this time. - Related Data Home Medications Medication Instructions Recorded Confirmed Furosemide [Lasix] 20 mg PO DAILY 05/04/21 03/07/22 Gabapentin 800 mg PO TID 05/04/21 03/07/22 cloNIDine HCL [Catapres] 0.1 mg PO HS 08/09/21 03/07/22 Potassium Chloride [Klor-Con M10] 10 meq PO DAILY 02/28/22 03/07/22 Previous Rx's Medication Instructions Recorded Albuterol Inhaler [Ventolin Hfa 1 puff INHALATION QID #8 gm 08/13/22 Inhaler] Azithromycin [Zithromax] 250 mg PO DAILY 4 Days #4 tab 08/13/22 predniSONE [Deltasone] 40 mg PO DAILY 5 Days #10 tab 08/13/22 Allergies Allergy/AdvReac Type Severity Reaction Status Date / Time latex Allergy Itching Verified 08/13/22 22:27 lithium AdvReac Vomiting Verified 08/13/22 22:27 pregabalin [From Lyrica] AdvReac Vomiting Verified 08/13/22 22:27 topiramate [From Topamax] AdvReac Abdominal Verified 08/13/22 22:27 Pain Review of Systems ROS Statement: Those systems with pertinent positive or pertinent negative responses have been documented in the HPI. Review of Systems: CONST: Denies fever EYES: Denies blurry vision ENT: Denies nasal congestion C/V: Endorses chest tightness RESP: Endorses shortness of breath GI: Denies abdominal pain : Denies dysuria SKIN: Denies rash. MSK: Denies joint pain. NEURO: Denies headache ROS Other: All systems not noted in ROS Statement are negative. Past Medical History Past Medical History: Asthma, COPD, Fibromyalgia, GERD/Reflux, Hypertension, Musculoskeletal Disorder, Osteoarthritis (OA), Rheumatoid Arthritis (RA) Additional Past Medical History / Comment(s): Neuropathy feet/legs and hands, bulging discs, chronic low back pain, DDD. History of Any Multi-Drug Resistant Organisms: MRSA Date of last positivie culture/infection: 05/05/21 MDRO Source:: MRSA LEG Past Surgical History: Hysterectomy, Orthopedic Surgery, Tubal Ligation Additional Past Surgical History / Comment(s): Right knee arthroscopic surg x3; LEEP procedure, partial hysterectomy 2009/ovaries intact, colonoscopy 2013, Past Anesthesia/Blood Transfusion Reactions: No Reported Reaction Past Psychological History: Anxiety, Bipolar, Depression Smoking Status: Current every day smoker Past Alcohol Use History: Occasional Past Drug Use History: None Reported - Past Family History Mother Family Medical History: Cancer, Hypertension Additional Family Medical History / Comment(s): neuropathy; Mother had Colon Cancer Father Family Medical History: No Reported History Additional Family Medical History / Comment(s): Father is bipolar General Exam - General Exam Comments Initial Comments: General: Appears in no acute distress. HEAD: Normal with no signs of head trauma. EYES: PERRLA, EOMI, conjunctiva normal, no discharge. ENT: Hearing grossly intact, normal oropharynx. RESPIRATORY: Bilateral end expiratory wheezing. No increased work of breathing. No hypoxia. C/V: Regular rate and rhythm. S1 and S2 auscultated, no edema, peripheral pulses 2+ and intact throughout ABD: Abd is soft, nontender, nondistended EXT: Normal range of motion, no obvious deformity SKIN: No rashes or lesions observed on exposed skin. NEURO: Alert and oriented 4. Limitations: no limitations Course Vital Signs 08/13/22 08/13/22 08/13/22 20:14 21:13 21:20 Temperature 98 F Pulse Rate 76 63 Respiratory 20 22 Rate Blood Pressure 164/87 O2 Sat by Pulse 98 97 Oximetry 08/13/22 08/13/22 08/13/22 21:27 21:30 22:00 Temperature Pulse Rate 77 75 69 Respiratory 24 22 Rate Blood Pressure O2 Sat by Pulse 96 96 Oximetry 08/13/22 22:38 Temperature Pulse Rate 70 Respiratory 18 Rate Blood Pressure O2 Sat by Pulse 98 Oximetry Medical Decision Making - Medical Decision Making Was pt. sent in by a medical professional or institution (, PA, FIRE CAPTAIN, urgent care, hospital, or fdc...) When possible be specific @ -No Did you speak to anyone other than the patient for history (EMS, parent, family, police, friend...)? What history was obtained from this source @ -No Did you review nursing and triage notes (agree or disagree)? Why? @ -I reviewed and agree with nursing and triage notes Were old charts reviewed (outside hosp., previous admission, EMS record, old E KG, old radiological studies, urgent care reports/EKG's, fdc records)? Report findings @ -Prior visit reviewed from July 2022. Differential Diagnosis (chest pain, altered mental status, abdominal pain women, abdominal pain men, vaginal bleeding, weakness, fever, dyspnea, syncope, headache, dizziness, GI bleed, back pain, seizure, CVA, palpatations, mental health, musculoskeletal)? @ -Differential Dyspnea: Coronary syndrome, arrhythmia, tamponade, asthma, COPD, pulmonary embolism, pneumonia, pneumothorax, pulmonary effusion, anaphylaxis, diabetic ketoacidosis, flailed chest, pulmonary contusion, diaphragmatic rupture, anemia, neuromuscular, this is not meant to be an all-inclusive list. Differential Chest Pain: Stable Angina, Unstable Angina, STEMI, NSTEMI Aortic Dissection, Pneumothorax, Musculoskeletal, Esophageal Spasm GERD, Cholecystitis, Pancreatitis, Zoster, this is not meant to be an all-inclusive list. EKG interpreted by me (3pts min.). @ -As above X-rays interpreted by me (1pt min.). @ -Chest X-ray revealed possible developing infiltrate in the right lung. CT interpreted by me (1pt min.). @ -None done U/S interpreted by me (1pt. min.). @ -None done What testing was considered but not performed or refused? (CT, X-rays, U/S, labs)? Why? @ -None What meds were considered but not given or refused? Why? @ -None Did you discuss the management of the patient with other professionals (professionals i.e. , PA, FIRE CAPTAIN, lab, RT, psych nurse, social work specialist, roller repairer, teacher, policy officer, case managers)? Give summary @ -No Was smoking cessation discussed for >3mins.? @ -No Was critical care preformed (if so, how long)? @ -No Were there social determinants of health that impacted care today? How? (Homelessness, low income, unemployed, alcoholism, drug addiction, transportation, low edu. Level, literacy, decrease access to med. care, snf, rehab)? @ -No Was there de-escalation of care discussed even if they declined (Discuss DNR or withdrawal of care, Hospice)? DNR status @ -No What co-morbidities impacted this encounter? (DM, HTN, Smoking, COPD, CAD, Cancer, CVA, ARF, Chemo, Hep., AIDS, mental health diagnosis, sleep apnea, morbid obesity)? @ -Asthma, COPD Was patient admitted / discharged? Hospital course, mention meds given and route, prescriptions, significant lab abnormalities, going to OR and other pertinent info. @ -Based on the patient's presentation and physical exam, and concern for acute cardiopulmonary etiology for her current symptoms. We will obtain cut a pulmonary labs and workup. She is mildly wheezy and will receive a breathing treatment. She was in agreement this plan. Vital signs are within acceptable limits. Chest x-ray shows possible right-sided developing pneumonia. Labs are remarkable for a normal d-dimer, a chronic indeterminant troponin, as well as BNP of 110. Remainder the labs within acceptable limits. EKG shows no evidence of acute ischemia. On reevaluation, patient is feeling somewhat improved. We discussed her workup. We will treat her for asthma exacerbation as well as bronchitis versus de veloping pneumonia with azithromycin as well as prednisone at home. She'll be given an albuterol refill. She was in agreement this plan. Strict return precautions discussed. Heart score is low at 1-2. I will provide the patient with a prescription for prednisone, azithromycin, albuterol. I instructed the patient to follow up with their PCP in the next 1-3 days. . I explained that the patient should return to the emergency department if they experience any worsening symptoms. Strict return precautions were discussed with the patient. The patient expressed understanding of these instructions. I answered all questions that the patient had. The patient was discharged home in good condition with their prescriptions and follow up information. Undiagnosed new problem with uncertain prognosis? @ -No Drug Therapy requiring intensive monitoring for toxicity (Heparin, Nitro, Insulin, Cardizem)? @ -No Were any procedures done? @ -No Diagnosis/symptom? @ -Asthma Acute, or Chronic, or Acute on Chronic? @ -Acute on chronic Uncomplicated (without systemic symptoms) or Complicated (systemic symptoms)? @ -Complicated Side effects of treatment? @ -No Exacerbation, Progression, or Severe Exacerbation? @ -Exacerbation Poses a threat to life or bodily function? How? (Chest pain, [place], [place], pneumonia, PE, COPD, DKA, ARF, appy, cholecystitis, CVA, Diverticulitis, Homicidal, Suicidal, threat to staff... and all critical care pts) @ -No Diagnosis/symptom? @ -Pneumonia Acute, or Chronic, or Acute on Chronic? @ -Acute Uncomplicated (without systemic symptoms) or Complicated (systemic symptoms)? @ -Complicated Side effects of treatment? @ -none Exacerbation, Progression, or Severe Exacerbation] @ -no Poses a threat to life or bodily function? @ -no - Lab Data Result diagrams: 08/13/22 21:00 08/13/22 21:00 Lab Results 08/13/22 08/13/22 08/13/22 Range/Units 21:00 21:00 21:00 WBC 10.0 (3.8-10.6) k/uL RBC 5.20 (3.80-5.40) m/uL Hgb 15.9 (11.4-16.0) gm/dL Hct 48.6 H (34.0-46.0) % MCV 93.6 (80.0-100.0) fL MCH 30.6 (25.0-35.0) pg MCHC 32.7 (31.0-37.0) g/dL RDW 13.5 (11.5-15.5) % Plt Count 214 (150-450) k/uL MPV 8.4 Neutrophils % 71 % Lymphocytes % 20 % Monocytes % 4 % Eosinophils % 4 % Basophils % 1 % Neutrophils # 7.1 (1.3-7.7) k/uL Lymphocytes # 1.9 (1.0-4.8) k/uL Monocytes # 0.4 (0-1.0) k/uL Eosinophils # 0.4 (0-0.7) k/uL Basophils # 0.1 (0-0.2) k/uL PT 10.1 (9.0-12.0) sec INR 1.0 (<1.2) APTT 23.3 (22.0-30.0) sec D-Dimer 0.36 (<0.60) mg/L FEU Sodium 137 (137-145) mmol/L Potassium 4.0 (3.5-5.1) mmol/L Chloride 101 (98-107) mmol/L Carbon Dioxide 25 (22-30) mmol/L Anion Gap 11 mmol/L BUN 14 (7-17) mg/dL Creatinine 0.67 (0.52-1.04) mg/dL Est GFR (CKD-EPI)AfAm >90 (>60 ml/min/1.73 sqM) Est GFR (CKD-EPI)NonAf >90 (>60 ml/min/1.73 sqM) Glucose 160 H (74-99) mg/dL Calcium 8.9 (8.4-10.2) mg/dL Magnesium 2.0 (1.6-2.3) mg/dL Total Bilirubin 0.5 (0.2-1.3) mg/dL AST 27 (14-36) U/L ALT 26 (4-34) U/L Alkaline Phosphatase 66 (38-126) U/L Troponin I (0.000-0.034) ng/mL NT-Pro-B Natriuret Pep pg/mL Total Protein 7.1 (6.3-8.2) g/dL Albumin 3.7 (3.5-5.0) g/dL Influenza Type A (PCR) (Not Detectd) Influenza Type B (PCR) (Not Detectd) RSV (PCR) (Not Detectd) SARS-CoV-2 (PCR) (Not Detectd) 08/13/22 08/13/22 08/13/22 Range/Units 21:00 21:00 21:00 WBC (3.8-10.6) k/uL RBC (3.80-5.40) m/uL Hgb (11.4-16.0) gm/dL Hct (34.0-46.0) % MCV (80.0-100.0) fL MCH (25.0-35.0) pg MCHC (31.0-37.0) g/dL RDW (11.5-15.5) % Plt Count (150-450) k/uL MPV Neutrophils % % Lymphocytes % % Monocytes % % Eosinophils % % Basophils % % Neutrophils # (1.3-7.7) k/uL Lymphocytes # (1.0-4.8) k/uL Monocytes # (0-1.0) k/uL Eosinophils # (0-0.7) k/uL Basophils # (0-0.2) k/uL PT (9.0-12.0) sec INR (<1.2) APTT (22.0-30.0) sec D-Dimer (<0.60) mg/L FEU Sodium (137-145) mmol/L Potassium (3.5-5.1) mmol/L Chloride (98-107) mmol/L Carbon Dioxide (22-30) mmol/L Anion Gap mmol/L BUN (7-17) mg/dL Creatinine (0.52-1.04) mg/dL Est GFR (CKD-EPI)AfAm (>60 ml/min/1.73 sqM) Est GFR (CKD-EPI)NonAf (>60 ml/min/1.73 sqM) Glucose (74-99) mg/dL Calcium (8.4-10.2) mg/dL Magnesium (1.6-2.3) mg/dL Total Bilirubin (0.2-1.3) mg/dL AST (14-36) U/L ALT (4-34) U/L Alkaline Phosphatase (38-126) U/L Troponin I 0.026 (0.000-0.034) ng/mL NT-Pro-B Natriuret Pep 110 pg/mL Total Protein (6.3-8.2) g/dL Albumin (3.5-5.0) g/dL Influenza Type A (PCR) Not Detected (Not Detectd) Influenza Type B (PCR) Not Detected (Not Detectd) RSV (PCR) Not Detected (Not Detectd) SARS-CoV-2 (PCR) Not Detected (Not Detectd) - EKG Data -: EKG Interpreted by Me EKG Comments: 12-lead Electrocardiogram Interpretation Note EKG was reviewed and interpreted by myself. 12-lead ECG performed at 2038 is interpreted by me as revealing normal sinus rhythm at a rate of 61 beats per minute. [place] is normal. MO interval is 174 ms, QRS duration is 101 ms, QTc is 421 ms.. There were no ST or T wave abnormalities to suggest myocardial ischemia or injury. R wave progression across the precordium was satisfactory. By my interpretation this EKG is non-diagnostic for acute ischemia. Disposition Clinical Impression: Pneumonia, Asthma exacerbation, Atypical chest pain Disposition: HOME SELF-CARE Condition: Good Instructions (If sedation given, give patient instructions): Asthma (ED), Community Acquired Pneumonia (DC) Prescriptions: predniSONE [Deltasone] 40 mg PO DAILY 5 Days #10 tab Albuterol Inhaler [Ventolin Hfa Inhaler] 1 puff INHALATION QID #8 gm Azithromycin [Zithromax] 250 mg PO DAILY 4 Days #4 tab Is patient prescribed a controlled substance at d/c from ED?: No Referrals: Thomas Bhat MD [Primary Care Provider] - 1-2 days Time of Disposition: 22:09
[2022-08-13 22:38] VITALS: PULSE 70; RESP 18
== END 2022-08-13 22:41 | disposition home or self-care (01) ==
LOC: EC 20:06
DX: J18.9 Pneumonia, unspecified organism (principal); J45.901 Unspecified asthma with (acute) exacerbation; R07.89 Other chest pain; I10 Essential (primary) hypertension; F41.9 Anxiety disorder, unspecified; F31.9 Bipolar disorder, unspecified; F17.200 Nicotine dependence, unspecified, uncomplicated; Z79.899 Other long term (current) drug therapy; Z91.040 Latex allergy status; Z88.6 Allergy status to analgesic agent; Z88.8 Allergy status to other drugs, medicaments and biological substances; Z20.822 Contact with and (suspected) exposure to COVID-19
CPT/HCPCS: 36415; 94640; 93005; 85379; 83880; 80053; 83735; 84484; 85025; 85610; 85730; 87636; 71046; 99285; 96374; J2920

== ENCOUNTER 2022-09-07 12:46 | Emergency (ER) | payer MEDICARE, OTHER ==
[2022-09-07 13:15] VITALS: BP 139/93; PULSE 76; RESP 18; TEMP 97.9
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
[2022-09-08 07:39] LABS: Hepatitis B Surface Antigen Nonreactive; Hepatitis C IgG Antibody Nonreactive
== END 2022-09-07 16:52 | disposition home or self-care (01) ==
LOC: EC 12:46
DX: R45.851 Suicidal ideations (principal); I10 Essential (primary) hypertension; J44.9 Chronic obstructive pulmonary disease, unspecified; F17.200 Nicotine dependence, unspecified, uncomplicated; Z86.59 Personal history of other mental and behavioral disorders; Z79.899 Other long term (current) drug therapy; Z91.040 Latex allergy status; Z88.6 Allergy status to analgesic agent; Z88.8 Allergy status to other drugs, medicaments and biological substances
CPT/HCPCS: 36415; 82075; 86701; 86704; 86803; 87340; 99284; 99285

== ENCOUNTER 2022-09-19 13:51 | Emergency (ER) | payer MEDICARE, OTHER ==
[2022-09-19 14:03] VITALS: TEMP 97.1
[2022-09-19] MEDS ORDERED: KETOROLAC 15 MG/ML 1 ML VIAL IVP STA (14:22)
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
[2022-09-19] MEDS ORDERED: HYDROmorphone 1 MG/ML 1 ML SYRINGE IVP STA (15:40)
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
[2022-09-19 16:22] LABS: Basophils # (A) 0.1 k/uL (0-0.2); Basophils % (A) 1 %; Eosinophils # (A) 0.5 k/uL (0-0.7); Eosinophils % (A) 5 %; HCT 38.3 % (34.0-46.0); Lymphocytes # (A) 1.4 k/uL (1.0-4.8); Lymphocytes % (A) 16 %; MCH 32.1 pg (25.0-35.0); MCHC 33.8 g/dL (31.0-37.0); MCV 94.9 fL (80.0-100.0); Mean Platelet Volume 8.1; Monocytes # (A) 0.7 k/uL (0-1.0); Monocytes % (A) 8 %; Neutrophils # (A) 6.1 k/uL (1.3-7.7); Neutrophils % (A) 69 %; Platelet Count 166 k/uL (150-450); RBC 4.04 m/uL (3.80-5.40); RDW 14.8 % (11.5-15.5); WBC 8.9 k/uL (3.8-10.6)
[2022-09-19 16:35] LABS: ALT 29 U/L (4-34); AST 22 U/L (14-36); African American GFR (CKD) >90 (>60 ml/min/1.73 sqM); Albumin 3.1 g/dL (3.5-5.0); Alkaline Phosphatase 69 U/L (38-126); Anion Gap 2 mmol/L; Blood Urea Nitrogen 15 mg/dL (7-17); Calcium 8.7 mg/dL (8.4-10.2); Carbon Dioxide 29 mmol/L (22-30); Chloride 103 mmol/L (98-107); Glucose 125 mg/dL (74-99); Non-African American GFR(CKD) >90 (>60 ml/min/1.73 sqM); Sodium 134 mmol/L (137-145); Total Bilirubin 0.6 mg/dL (0.2-1.3)
[2022-09-19] MEDS ORDERED: NICOTINE 21MG/24HR PATCH TRANSDERM ONE (18:10)
[2022-09-19 20:21] LABS: Amorphous Sediment,Urine Occasional /hpf; Appearance,Urine Cloudy (Clear); Bacteria,Urine Few /hpf; Bilirubin,Urine Negative (Negative); Blood,Urine Small (Negative); Calcium Oxalate Crystals,Urine Moderate /hpf; Color,Urine Light Red; Glucose,Urine (UA) Negative (Negative); Ketones,Urine Negative (Negative); Leukocyte Esterase,Urine Large (Negative); Mucus,Urine Rare /hpf; Nitrite,Urine Positive (Negative); PH, Urine 6.5 (5.0-8.0); Protein,Urine 1+ (Negative); RBC,Urine 5 /hpf (0-5); Specific Gravity,Urine 1.029 (1.001-1.035); Squamous Epithelial Cell,Urine 9 /hpf (0-4); Urobilinogen,Urine <2.0 mg/dL (<2.0); WBC,Urine 138 /hpf (0-5)
[2022-09-19 20:31] LABS: Amphetamine Screen,Urine Not Detected (NotDetected); Benzodiazepines Screen,Urine Detected (NotDetected); Cocaine Screen,Urine Not Detected (NotDetected); Opiate Screen,Urine Detected (NotDetected); Phencyclidine Screen,Urine Not Detected (NotDetected); Urn Cannabinoid Scrn Detected (NotDetected)
[2022-09-19 20:32] LABS: Barbiturate Screen,Urine Not Detected (NotDetected); Methadone Screen, Urine Not Detected (NotDetected); Oxycodone Screen, Urine Detected (NotDetected); Tricyclic Antidepressant,Urine Not Detected (NotDetected)
[2022-09-19] MEDS: HYDROmorphone 0.5 MG/0.5 ML SYRINGE IVP SCH (21:38)
[2022-09-19] MEDS: IBUPROFEN 600 MG TAB PO SCH (23:55)
[2022-09-20] MEDS: HYDROmorphone 0.5 MG/0.5 ML SYRINGE IVP SCH ×4 (00:11→06:42)
[2022-09-20] MEDS: IBUPROFEN 600 MG TAB PO SCH (05:05)
[2022-09-20 07:17] VITALS: RESP 18
[2022-09-20] MEDS ORDERED: HYDROmorphone 0.5 MG/0.5 ML SYRINGE IVP SCH (09:00)
[2022-09-20 11:06] VITALS: BP 135/78; PULSE 77
== END 2022-09-20 11:06 | disposition home or self-care (01) ==
LOC: EC 13:51
DX: F60.3 Borderline personality disorder (principal); J44.9 Chronic obstructive pulmonary disease, unspecified; I10 Essential (primary) hypertension; M19.90 Unspecified osteoarthritis, unspecified site; F31.9 Bipolar disorder, unspecified; F41.9 Anxiety disorder, unspecified; F17.200 Nicotine dependence, unspecified, uncomplicated; Z79.899 Other long term (current) drug therapy; Z91.040 Latex allergy status; Z88.8 Allergy status to other drugs, medicaments and biological substances; Z20.822 Contact with and (suspected) exposure to COVID-19
CPT/HCPCS: 82075; 36415; 93005; 80053; 85025; 81001; 80306; 87636; 71110; 99285; 96374; 96375; 96376 ×4; S4990; J1170 ×2; J1885

== ENCOUNTER 2022-10-11 16:15 | Emergency (ER) | payer MEDICARE, OTHER ==
[2022-10-11] MEDS ORDERED: hydrOXYzine HCL 50 MG/ML 1 ML VIAL IM STA (17:44)
--- NOTE | 2022-10-11 18:02 | ED ---
Psych HPI - General Source: patient Mode of arrival: ambulatory <Marlene Cooper - Last Filed: 10/11/22 18:04> - History of Present Illness MD Complaint: suicidal ideation, feels depressed -: unknown Associated Psychiatric Symptoms: suicidal ideation, homicidal ideation, racing thoughts History of same: Yes Quality: constant, getting worse Improves With: none Worsens With: none Context: significant life stressor Associated Symptoms: denies other symptoms Treatments Prior to Arrival: none, placed on mental health hold If Self Harm: admits thoughts of self harm <Senthil Hernandez - Last Filed: 10/12/22 04:52> - General Chief Complaint: Psychiatric Symptoms Stated Complaint: PSYCH EVAL Time Seen by Provider: 10/11/22 16:22 - History of Present Illness Initial Comments: Patient is a 46-year-old female who presents to the emergency department for suicidal and homicidal ideation. Patient wants to cut herself again. She has not self-harmed recently. She has history of anxiety and depression. No visual or auditory hallucinations. She denies alcohol and drug use. No physical concerns. Patient has no other concerns at this time including fever, chills, headache, shortness of breath, cough, chest pain, abdominal pain, nausea, vomiting, diarrhea, and burning with urination (Marlene Cooper) 46 female for suicidal thoughts suicidal and homicidal thoughts (Senthil Petersen) - Related Data Home Medications Medication Instructions Recorded Confirmed Furosemide [Lasix] 20 mg PO DAILY 05/04/21 10/11/22 Gabapentin 800 mg PO QID 05/04/21 10/11/22 cloNIDine HCL [Catapres] 0.1 mg PO BID 08/09/21 10/11/22 Potassium Chloride [Klor-Con M10] 10 meq PO DAILY 02/28/22 10/11/22 Albuterol Inhaler [Ventolin Hfa 2 puff INHALATION RT-QID PRN 09/07/22 10/11/22 Inhaler] Albuterol Nebulized [Ventolin 1.25 mg INHALATION RT-TID 09/19/22 10/11/22 Nebulized (Accuneb)] Cariprazine HCl [Vraylar] 1.5 mg PO DAILY 09/19/22 10/11/22 DULoxetine HCL [Cymbalta] 60 mg PO BID 09/19/22 10/11/22 Lidocaine 5% Patch [Lidoderm] 1 patch TOPICAL DAILY PRN 09/19/22 10/11/22 busPIRone HCL [Buspar] 30 mg PO TID 09/19/22 10/11/22 HYDROcodone/APAP 10-325MG [Olivet 1 tab PO TID PRN 10/11/22 10/11/22 10-325] Ibuprofen [Motrin] 800 mg PO Q6H PRN 10/11/22 10/11/22 Allergies Allergy/AdvReac Type Severity Reaction Status Date / Time latex Allergy Itching Verified 10/11/22 16:16 lithium AdvReac Vomiting Verified 10/11/22 16:16 pregabalin [From Lyrica] AdvReac Vomiting Verified 10/11/22 16:16 topiramate [From Topamax] AdvReac Abdominal Verified 10/11/22 16:16 Pain Review of Systems ROS Other: All systems not noted in ROS Statement are negative. <Marlene Cooper - Last Filed: 10/11/22 18:04> ROS Other: All systems not noted in ROS Statement are negative. <Senthil Hernandez - Last Filed: 10/12/22 04:52> ROS Statement: Those systems with pertinent positive or pertinent negative responses have been documented in the HPI. Past Medical History Past Medical History: Asthma, COPD, Fibromyalgia, GERD/Reflux, Hypertension, Musculoskeletal Disorder, Osteoarthritis (OA), Rheumatoid Arthritis (RA) Additional Past Medical History / Comment(s): Neuropathy feet/legs and hands, bulging discs, chronic low back pain, DDD. rib fractures pneumothorax History of Any Multi-Drug Resistant Organisms: MRSA Date of last positivie culture/infection: 05/05/21 MDRO Source:: MRSA LEG Past Surgical History: Hysterectomy, Orthopedic Surgery, Tubal Ligation Additional Past Surgical History / Comment(s): Right knee arthroscopic surg x3; LEEP procedure, partial hysterectomy 2009/ovaries intact, colonoscopy 2013, Past Anesthesia/Blood Transfusion Reactions: No Reported Reaction Past Psychological History: Anxiety, Bipolar, Depression Smoking Status: Current every day smoker Past Alcohol Use History: Occasional Past Drug Use History: None Reported - Past Family History Mother Family Medical History: Cancer, Hypertension Additional Family Medical History / Comment(s): neuropathy; Mother had Colon Cancer Father Family Medical History: No Reported History Additional Family Medical History / Comment(s): Father is bipolar <Marlene Cooper - Last Filed: 10/11/22 18:04> General Exam Limitations: no limitations General appearance: alert Head exam: Present: atraumatic, normocephalic, normal inspection Respiratory exam: Present: normal lung sounds bilaterally. Absent: respiratory distress, wheezes, rales, rhonchi, stridor Cardiovascular Exam: Present: regular rate, normal rhythm, normal heart sounds. Absent: systolic murmur, diastolic murmur, rubs, gallop, clicks GI/Abdominal exam: Present: soft, normal bowel sounds. Absent: distended, tenderness, guarding, rebound, rigid Neurological exam: Present: alert Psychiatric exam: Present: suicidal ideation Skin exam: Present: warm, dry, intact, normal color. Absent: rash <Marlene Cooper - Last Filed: 10/11/22 18:04> General appearance: alert, in no apparent distress Head exam: Present: atraumatic, normocephalic, normal inspection Eye exam: Present: normal appearance, PERRL, EOMI. Absent: scleral icterus, conjunctival injection, periorbital swelling ENT exam: Present: normal exam, mucous membranes moist Neck exam: Present: normal inspection. Absent: tenderness, meningismus, lymphadenopathy Respiratory exam: Present: normal lung sounds bilaterally. Absent: respiratory distress, wheezes, rales, rhonchi, stridor Cardiovascular Exam: Present: regular rate, normal rhythm, normal heart sounds. Absent: systolic murmur, diastolic murmur, rubs, gallop, clicks GI/Abdominal exam: Present: soft, normal bowel sounds. Absent: distended, tenderness, guarding, rebound, rigid Extremities exam: Present: normal inspection, full ROM, normal capillary refill. Absent: tenderness, pedal edema, joint swelling, calf tenderness Back exam: Present: normal inspection Neurological exam: Present: alert, oriented X3, CN II-XII intact Psychiatric exam: Present: normal affect, normal mood Skin exam: Present: warm, dry, intact, normal color. Absent: rash <Senthil Hernandez - Last Filed: 10/12/22 04:52> Course <Senthil Hernandez - Last Filed: 10/12/22 04:52> Vital Signs 10/11/22 10/11/22 16:17 19:00 Temperature 97.7 F 98.2 F Pulse Rate 80 71 Respiratory 17 19 Rate Blood Pressure 156/96 159/123 O2 Sat by Pulse 96 96 Oximetry - Reevaluation(s) Reevaluation #1: 10/12/22 Medical record is reviewed (Senthil Hernandez) Reevaluation #2: Medical clear for psychiatric evaluation (Senthil Hernandez) Medical Decision Making <Marlene Cooper - Last Filed: 10/11/22 18:04> - Lab Data Result diagrams: 10/11/22 18:22 10/11/22 18:22 <Senthil Hernandez - Last Filed: 10/12/22 04:52> - Medical Decision Making Was pt. sent in by a medical professional or institution (, PA, HUMAN RESOURCE INTERN, urgent care, hospital, or senior care...) When possible be specific @ -No Did you speak to anyone other than the patient for history (EMS, parent, family, police, friend...)? What history was obtained from this source @ -No Did you review nursing and triage notes (agree or disagree)? Why? @ -I reviewed and agree with nursing and triage notes Were old charts reviewed (outside hosp., previous admission, EMS record, old EKG, old radiological studies, urgent care reports/EKG's, senior care records)? Report findings @ -No old charts were reviewed Differential Diagnosis (chest pain, altered mental status, abdominal pain women, abdominal pain men, vaginal bleeding, weakness, fever, dyspnea, syncope, headache, dizziness, GI bleed, back pain, seizure, CVA, palpatations, mental health)? @ -Differential Mental Health Depression, anxiety, bipolar, psychosis, schizophrenia, borderline personality, situational depression, adjustment disorder, behavioral disorder, brain tumor, malingering, substance abuse, encephalopathy, medication reaction, dementia, hypothyroidism, degenerative neurologic disorder, lupus.... This is not meant to be all-inclusive list EKG interpreted by me (3pts min.). @ -As above X-rays interpreted by me (1pt min.). @ -None done CT interpreted by me (1pt min.). @ -None done U/S interpreted by me (1pt. min.). @ -None done What testing was considered but not performed or refused? (CT, X-rays, U/S, labs)? Why? @ -None What meds were considered but not given or refused? Why? @ -None Did you discuss the management of the patient with other professionals (professionals i.e. , PA, HUMAN RESOURCE INTERN, lab, RT, psych nurse, social work instructor, lead programmer analyst, te acher, forward air controller/air officer, case advocate)? Give summary @ -No Was smoking cessation discussed for >3mins.? @ -No Was critical care preformed (if so, how long)? @ -No Were there social determinants of health that impacted care today? How? (Homelessness, low income, unemployed, alcoholism, drug addiction, transportation, low edu. Level, literacy, decrease access to med. care, senior care, rehab)? @ -No Was there de-escalation of care discussed even if they declined (Discuss DNR or withdrawal of care, Hospice)? DNR status @ -No What co-morbidities impacted this encounter? (DM, HTN, Smoking, COPD, CAD, Cancer, CVA, ARF, Chemo, Hep., AIDS, mental health diagnosis, sleep apnea, morbid obesity)? @Anxiety, depression Was patient admitted / discharged? Hospital course, mention meds given and route, prescriptions, significant lab abnormalities, going to OR and other pertinent info. @Patient presenting with suicidal and homicidal ideation. Further evaluation with laboratory studies and imaging is not indicated at this time. Alcohol breathalyzer is 0. Patient evaluated by EPS and will be transferred for inpatient care. Undiagnosed new problem with uncertain prognosis? @ -[o] Drug Therapy requiring intensive monitoring for toxicity (Heparin, Nitro, Insulin, Cardizem)? @ -[o] Were any procedures done? @ -[o] Diagnosis/symptom? @ Suicidal ideation, homicidal evaluation Acute, or Chronic, or Acute on Chronic? @ -acute Uncomplicated (without systemic symptoms) or Complicated (systemic symptoms)? @ -uncomplicated Side effects of treatment? @ -No Exacerbation, Progression, or Severe Exacerbation? @ -No Poses a threat to life or bodily function? How? (Chest pain, [place], [place], pneumonia, PE, COPD, DKA, ARF, appy, cholecystitis, CVA, Diverticulitis, Homicidal, Suicidal, threat to staff... and all critical care pts) @ -Yes Dr. Aguayo is my attending (Marlene Cooper) 46 female will be transferred for inpatient psychiatric evaluation and treatment (Senthil Hernandez) - Lab Data Lab Results 10/11/22 10/11/22 10/11/22 Range/Units 18:22 18:22 18:22 WBC 9.9 (3.8-10.6) k/uL RBC 4.76 (3.80-5.40) m/uL Hgb 14.7 (11.4-16.0) gm/dL Hct 46.4 H (34.0-46.0) % MCV 97.5 (80.0-100.0) fL MCH 31.0 (25.0-35.0) pg MCHC 31.7 (31.0-37.0) g/dL RDW 14.5 (11.5-15.5) % Plt Count 202 (150-450) k/uL MPV 7.6 Hypochromasia Slight Sodium 135 L (137-145) mmol/L Potassium 3.9 (3.5-5.1) mmol/L Chloride 101 (98-107) mmol/L Carbon Dioxide 30 (22-30) mmol/L Anion Gap 4 mmol/L BUN 15 (7-17) mg/dL Creatinine 0.65 (0.52-1.04) mg/dL Est GFR (CKD-EPI)AfAm >90 (>60 ml/min/1.73 sqM) Est GFR (CKD-EPI)NonAf >90 (>60 ml/min/1.73 sqM) Glucose 116 H (74-99) mg/dL Calcium 8.7 (8.4-10.2) mg/dL Total Bilirubin 0.3 (0.2-1.3) mg/dL AST 19 (14-36) U/L ALT 19 (4-34) U/L Alkaline Phosphatase 71 (38-126) U/L Total Protein 7.0 (6.3-8.2) g/dL Albumin 3.8 (3.5-5.0) g/dL Urine Color Yellow Urine Appearance Clear (Clear) Urine pH 6.0 (5.0-8.0) Ur Specific [place] 1.028 (1.001-1.035) Urine Protein Trace H (Negative) Urine Glucose (UA) Negative (Negative) Urine Ketones Negative (Negative) Urine Blood Negative (Negative) Urine Nitrite Negative (Negative) Urine Bilirubin Negative (Negative) Urine Urobilinogen 2.0 (<2.0) mg/dL Ur Leukocyte Esterase Negative (Negative) Urine HCG, Qual (Not Detectd) Urine Opiates Screen (NotDetected) Ur Oxycodone Screen (NotDetected) Urine Methadone Screen (NotDetected) Ur Propoxyphene Screen (NotDetected) Ur Barbiturates Screen (NotDetected) U Tricyclic Antidepress (NotDetected) Ur Phencyclidine Scrn (NotDetected) Ur Amphetamines Screen (NotDetected) U Methamphetamines Scrn (NotDetected) U Benzodiazepines Scrn (NotDetected) Urine Cocaine Screen (NotDetected) U Marijuana (THC) Screen (NotDetected) Coronavirus (PCR) (Not Detectd) 10/11/22 10/11/22 10/11/22 Range/Units 18:22 18:22 18:22 WBC (3.8-10.6) k/uL RBC (3.80-5.40) m/uL Hgb (11.4-16.0) gm/dL Hct (34.0-46.0) % MCV (80.0-100.0) fL MCH (25.0-35.0) pg MCHC (31.0-37.0) g/dL RDW (11.5-15.5) % Plt Count (150-450) k/uL MPV Hypochromasia Sodium (137-145) mmol/L Potassium (3.5-5.1) mmol/L Chloride (98-107) mmol/L Carbon Dioxide (22-30) mmol/L Anion Gap mmol/L BUN (7-17) mg/dL Creatinine (0.52-1.04) mg/dL Est GFR (CKD-EPI)AfAm (>60 ml/min/1.73 sqM) Est GFR (CKD-EPI)NonAf (>60 ml/min/1.73 sqM) Glucose (74-99) mg/dL Calcium (8.4-10.2) mg/dL Total Bilirubin (0.2-1.3) mg/dL AST (14-36) U/L ALT (4-34) U/L Alkaline Phosphatase (38-126) U/L Total Protein (6.3-8.2) g/dL Albumin (3.5-5.0) g/dL Urine Color Urine Appearance (Clear) Urine pH (5.0-8.0) Ur Specific [place] (1.001-1.035) Urine Protein (Negative) Urine Glucose (UA) (Negative) Urine Ketones (Negative) Urine Blood (Negative) Urine Nitrite (Negative) Urine Bilirubin (Negative) Urine Urobilinogen (<2.0) mg/dL Ur Leukocyte Esterase (Negative) Urine HCG, Qual Not Detected (Not Detectd) Urine Opiates Screen Detected H (NotDetected) Ur Oxycodone Screen Not Detected (NotDetected) Urine Methadone Screen Not Detected (NotDetected) Ur Propoxyphene Screen Not Detected (NotDetected) Ur Barbiturates Screen Not Detected (NotDetected) U Tricyclic Antidepress Not Detected (NotDetected) Ur Phencyclidine Scrn Not Detected (NotDetected) Ur Amphetamines Screen Not Detected (NotDetected) U Methamphetamines Scrn Not Detected (NotDetected) U Benzodiazepines Scrn Not Detected (NotDetected) Urine Cocaine Screen Not Detected (NotDetected) U Marijuana (THC) Screen Detected H (NotDetected) Coronavirus (PCR) Not Detected (Not Detectd) Disposition <Marlene Cooper - Last Filed: 10/11/22 18:04> Is patient prescribed a controlled substance at d/c from ED?: No <Senthil Hernandez - Last Filed: 10/12/22 04:52> Clinical Impression: Suicidal ideation, Homicidal ideation, Depression, Bipolar disorder, Borderline personality disorder Disposition: TRANSFER TO PSYCH HOSP/UNIT Condition: Fair Referrals: Thomas Bhat MD [Primary Care Provider] - 1-2 days
[2022-10-11 19:10] LABS: Appearance,Urine Clear (Clear); Bilirubin,Urine Negative (Negative); Blood,Urine Negative (Negative); Color,Urine Yellow; Glucose,Urine (UA) Negative (Negative); Ketones,Urine Negative (Negative); Leukocyte Esterase,Urine Negative (Negative); Nitrite,Urine Negative (Negative); Protein,Urine Trace (Negative); Specific Gravity,Urine 1.028 (1.001-1.035)
[2022-10-11 19:21] LABS: Cocaine Screen,Urine Not Detected (NotDetected); Phencyclidine Screen,Urine Not Detected (NotDetected)
[2022-10-11 19:22] LABS: Amphetamine Screen,Urine Not Detected (NotDetected); Barbiturate Screen,Urine Not Detected (NotDetected); Benzodiazepines Screen,Urine Not Detected (NotDetected); Methadone Screen, Urine Not Detected (NotDetected); Opiate Screen,Urine Detected (NotDetected); Oxycodone Screen, Urine Not Detected (NotDetected); Tricyclic Antidepressant,Urine Not Detected (NotDetected); Urn Cannabinoid Scrn Detected (NotDetected)
[2022-10-11 19:23] LABS: HCT 46.4 % (34.0-46.0); HGB 14.7 gm/dL (11.4-16.0); Hypochromasia Slight; MCHC 31.7 g/dL (31.0-37.0); MCV 97.5 fL (80.0-100.0); Mean Platelet Volume 7.6; Platelet Count 202 k/uL (150-450); RBC 4.76 m/uL (3.80-5.40); RDW 14.5 % (11.5-15.5); WBC 9.9 k/uL (3.8-10.6)
[2022-10-11 19:43] LABS: ALT 19 U/L (4-34); AST 19 U/L (14-36); African American GFR (CKD) >90 (>60 ml/min/1.73 sqM); Albumin 3.8 g/dL (3.5-5.0); Alkaline Phosphatase 71 U/L (38-126); Anion Gap 4 mmol/L; Blood Urea Nitrogen 15 mg/dL (7-17); Calcium 8.7 mg/dL (8.4-10.2); Carbon Dioxide 30 mmol/L (22-30); Chloride 101 mmol/L (98-107); Glucose 116 mg/dL (74-99); Non-African American GFR(CKD) >90 (>60 ml/min/1.73 sqM); Potassium 3.9 mmol/L (3.5-5.1); Sodium 135 mmol/L (137-145); Total Bilirubin 0.3 mg/dL (0.2-1.3)
[2022-10-11] MEDS ORDERED: ALBUTEROL NEBULIZED 2.5 MG/3 ML INHALATION PRN (22:48)
[2022-10-11] MEDS ORDERED: HYDROcodone/APAP 10-325MG 1 EACH TAB PO PRN (22:48)
[2022-10-11] MEDS ORDERED: LIDOCAINE 5% PATCH TOPICAL PRN (22:48)
[2022-10-11] MEDS ORDERED: IBUPROFEN 800 MG TAB PO PRN (22:48)
[2022-10-12] MEDS ORDERED: ALBUTEROL NEBULIZED 1.25 MG/3 ML INHALATION SCH (08:00)
[2022-10-12] MEDS ORDERED: NON FORMULARY DRUG (Cariprazine Hcl [Vraylar] 1.5 MG Capsule) PO SCH (09:00)
[2022-10-12] MEDS ORDERED: busPIRone HCl 10 MG TAB PO SCH (09:00)
[2022-10-12] MEDS ORDERED: cloNIDine HCL 0.1 MG TAB PO SCH (09:00)
[2022-10-12] MEDS ORDERED: DULoxetine HCL 60 MG CAPSULE.DR PO SCH (09:00)
[2022-10-12] MEDS ORDERED: POTASSIUM CHLORIDE ER 10 MEQ TAB.ER.PRT PO SCH (09:00)
[2022-10-12] MEDS ORDERED: FUROSEMIDE 20 MG TAB PO SCH (09:00)
[2022-10-12] MEDS ORDERED: GABAPENTIN 400 MG CAP PO SCH (09:00)
[2022-10-12] MEDS ORDERED: LORazepam 1 MG TAB PO STA (09:44)
[2022-10-12 09:56] VITALS: BP 150/93; PULSE 80; RESP 17; TEMP 97.6
== END 2022-10-12 10:01 ==
LOC: EC 16:15
DX: F31.9 Bipolar disorder, unspecified (principal); F60.3 Borderline personality disorder; R45.850 Homicidal ideations; R45.851 Suicidal ideations; I10 Essential (primary) hypertension; J44.9 Chronic obstructive pulmonary disease, unspecified; G62.9 Polyneuropathy, unspecified; F41.9 Anxiety disorder, unspecified; F17.200 Nicotine dependence, unspecified, uncomplicated; Z20.822 Contact with and (suspected) exposure to COVID-19; Z79.899 Other long term (current) drug therapy; Z91.040 Latex allergy status; Z88.8 Allergy status to other drugs, medicaments and biological substances
CPT/HCPCS: 82075; 36415; 80053; 85027; 81003; 81025; 80306; 87635; 99285; 96372; J3410

== ENCOUNTER 2022-12-17 15:17 | Emergency (ER) | payer MEDICARE, OTHER ==
[2022-12-17 15:44] VITALS: TEMP 97.6
--- NOTE | 2022-12-17 16:07 | XR ---
EXAMINATION TYPE: XR KUB DATE OF EXAM: 12/17/2022 COMPARISON: 08/23/2018 INDICATION: Abdominal pain right upper quadrant TECHNIQUE: Single view abdomen upright view FINDINGS: There is a normal bowel gas pattern. No free air is evident. No suspicious air-fluid levels or differ ential air-fluid levels are present. Psoas margins are normal. No organomegaly is present. IMPRESSION: 1. Unremarkable Abdomen
[2022-12-17 16:40] LABS: Appearance,Urine Clear (Clear); Bilirubin,Urine Negative (Negative); Blood,Urine Negative (Negative); Color,Urine Colorless; Glucose,Urine (UA) Negative (Negative); Ketones,Urine Negative (Negative); Leukocyte Esterase,Urine Small (Negative); Nitrite,Urine Negative (Negative); Protein,Urine Negative (Negative); RBC,Urine 2 /hpf (0-5); Specific Gravity,Urine 1.002 (1.001-1.035); Squamous Epithelial Cell,Urine <1 /hpf (0-4); Urobilinogen,Urine <2.0 mg/dL (<2.0); WBC,Urine 4 /hpf (0-5)
[2022-12-17] MEDS ORDERED: KETOROLAC 15 MG/ML 1 ML VIAL IVP STA (18:30)
[2022-12-17] MEDS ORDERED: SODIUM CHLORIDE 0.9% 1,000 ML IV ONE (18:31)
--- NOTE | 2022-12-17 18:32 | ED ---
Abdominal Pain HPI - General Chief Complaint: Abdominal Pain Stated Complaint: Abd pain Time Seen by Provider: 12/17/22 18:15 Source: patient Mode of arrival: ambulatory Limitations: no limitations - History of Present Illness Initial Comments: 46-year-old female with past medical history of fibromyalgia, reflux presents to the emergency department reporting right upper quadrant abdominal pain. States that the pain has been present for several months however has gotten worse over the last week. She states is very tender to touch. Denies dysuria, hematuria or difficulty voiding. No vaginal bleeding or discharge. She is status post hysterectomy. She denies any dysuria, hematuria or difficulty voiding. Reports the pain does get worse when she attempts to use the restroom. No fevers. No other alleviating, precipitating or modifying factors - Related Data Home Medications Medication Instructions Recorded Confirmed Furosemide [Lasix] 20 mg PO DAILY 05/04/21 10/11/22 Gabapentin 800 mg PO QID 05/04/21 10/11/22 cloNIDine HCL [Catapres] 0.1 mg PO BID 08/09/21 10/11/22 Potassium Chloride [Klor-Con M10] 10 meq PO DAILY 02/28/22 10/11/22 Albuterol Inhaler [Ventolin Hfa 2 puff INHALATION RT-QID PRN 09/07/22 10/11/22 Inhaler] Albuterol Nebulized [Ventolin 1.25 mg INHALATION RT-TID 09/19/22 10/11/22 Nebulized (Accuneb)] Cariprazine HCl [Vraylar] 1.5 mg PO DAILY 09/19/22 10/11/22 DULoxetine HCL [Cymbalta] 60 mg PO BID 09/19/22 10/11/22 Lidocaine 5% Patch [Lidoderm] 1 patch TOPICAL DAILY PRN 09/19/22 10/11/22 busPIRone HCL [Buspar] 30 mg PO TID 09/19/22 10/11/22 HYDROcodone/APAP 10-325MG [[place] 1 tab PO TID PRN 10/11/22 10/11/22 10-325] Ibuprofen [Motrin] 800 mg PO Q6H PRN 10/11/22 10/11/22 Previous Rx's Medication Instructions Recorded HYDROcodone/APAP 7.5-325MG [[place] 1 tab PO Q4HR PRN 3 Days #18 tab 12/17/22 7.5-325] Allergies Allergy/AdvReac Type Severity Reaction Status Date / Time latex Allergy Itching Verified 12/17/22 15:41 lithium AdvReac Vomiting Verified 12/17/22 15:41 pregabalin [From Lyrica] AdvReac Vomiting Verified 12/17/22 15:41 topiramate [From Topamax] AdvReac Abdominal Verified 12/17/22 15:41 Pain Review of Systems ROS Statement: Those systems with pertinent positive or pertinent negative responses have been documented in the HPI. ROS Other: All systems not noted in ROS Statement are negative. Past Medical History Past Medical History: Asthma, COPD, Fibromyalgia, GERD/Reflux, Hypertension, Musculoskeletal Disorder, Osteoarthritis (OA), Rheumatoid Arthritis (RA) Additional Past Medical History / Comment(s): Neuropathy feet/legs and hands, bulging discs, chronic low back pain, DDD. rib fractures pneumothorax History of Any Multi-Drug Resistant Organisms: MRSA Date of last positivie culture/infection: 05/05/21 MDRO Source:: MRSA LEG Past Surgical History: Hysterectomy, Orthopedic Surgery, Tubal Ligation Additional Past Surgical History / Comment(s): Right knee arthroscopic surg x3; LEEP procedure, partial hysterectomy 2009/ovaries intact, colonoscopy 2013, Past Anesthesia/Blood Transfusion Reactions: No Reported Reaction Past Psychological History: Anxiety, Bipolar, Depression Smoking Status: Current every day smoker Past Alcohol Use History: Occasional Past Drug Use History: None Reported - Past Family History Mother Family Medical History: Cancer, Hypertension Additional Family Medical History / Comment(s): neuropathy; Mother had Colon Cancer Father Family Medical History: No Reported History Additional Family Medical History / Comment(s): Father is bipolar General Exam Limitations: no limitations General appearance: alert, in no apparent distress Head exam: Present: atraumatic, normocephalic, normal inspection Eye exam: Present: normal appearance, PERRL, EOMI. Absent: scleral icterus, conjunctival injection, periorbital swelling ENT exam: Present: normal exam, mucous membranes moist Neck exam: Present: normal inspection. Absent: tenderness, meningismus, lymphadenopathy Respiratory exam: Present: normal lung sounds bilaterally. Absent: respiratory distress, wheezes, rales, rhonchi, stridor Cardiovascular Exam: Present: regular rate, normal rhythm, normal heart sounds. Absent: systolic murmur, diastolic murmur, rubs, gallop, clicks GI/Abdominal exam: Present: soft, tenderness (Right upper quadrant), normal bowel sounds. Absent: distended, guarding, rebound, rigid Extremities exam: Present: normal inspection, full ROM, normal capillary refill. Absent: tenderness, pedal edema, joint swelling, calf tenderness Back exam: Present: normal inspection Neurological exam: Present: alert, oriented X3, CN II-XII intact Psychiatric exam: Present: normal affect, normal mood Skin exam: Present: warm, dry, intact, normal color. Absent: rash Course Vital Signs 12/17/22 12/17/22 15:39 21:23 Temperature 97.6 F Pulse Rate 60 65 Respiratory 18 16 Rate Blood Pressure 134/96 135/75 O2 Sat by Pulse 99 98 Oximetry Medical Decision Making - Medical Decision Making Was pt. sent in by a medical professional or institution (, PA, MANAGER REVIEW, urgent care, hospital, or detention...) When possible be specific @ -No Did you speak to anyone other than the patient for history (EMS, parent, family, police, friend...)? What history was obtained from this source @ -No Did you review nursing and triage notes (agree or disagree)? Why? @ -I reviewed and agree with nursing and triage notes Were old charts reviewed (outside hosp., previous admission, EMS record, old EKG, old radiological studies, urgent care reports/EKG's, detention records)? Report findings @ -No old charts were reviewed Differential Diagnosis (chest pain, altered mental status, abdominal pain women, abdominal pain men, vaginal bleeding, weakness, fever, dyspnea, syncope, headache, dizziness, GI bleed, back pain, seizure, CVA, palpatations, mental health, musculoskeletal)? @ -Differential Abdominal Pain Women: Appendicitis, Cholecystitis, diverticulosis, ischemic bowel, pancreatitis, hepatitis, UTI, gastroenteritis, AAA, incarcerated hernia, bowel obstruction, constipation, inflammatory bowel, hepatitis, peptic ulcer disease, splenic in farction, perforated viscus, vulvitis, ovarian torsion, PID, kidney stone, placenta abruption, this is not meant to be an all-inclusive list EKG interpreted by me (3pts min.). @ -Not done X-rays interpreted by me (1pt min.). @ -Yes and demonstrates no acute process CT interpreted by me (1pt min.). @ -None done U/S interpreted by me (1pt. min.). @ -Yes and demonstrates no acute process What testing was considered but not performed or refused? (CT, X-rays, U/S, labs)? Why? @ -CT was considered however patient does have localized right upper quadrant pain What meds were considered but not given or refused? Why? @ -None Did you discuss the management of the patient with other professionals (professionals i.e. , PA, MANAGER REVIEW, lab, RT, psych nurse, sr. social media & mobile manager, pneumatic deicer inspector, teacher, county health officer, family caseworker)? Give summary @ -No Was smoking cessation discussed for >3mins.? @ -No Was critical care preformed (if so, how long)? @ -No Were there social determinants of health that impacted care today? How? (Homelessness, low income, unemployed, alcoholism, drug addiction, transportation, low edu. Level, literacy, decrease access to med. care, [place] [facility], rehab)? @ -No Was there de-escalation of care discussed even if they declined (Discuss DNR or withdrawal of care, Hospice)? DNR status @ -No What co-morbidities impacted this encounter? (DM, HTN, Smoking, COPD, CAD, Cancer, CVA, ARF, Chemo, Hep., AIDS, mental health diagnosis, sleep apnea, morbid obesity)? @ -None Was patient admitted / discharged? Hospital course, mention meds given and route, prescriptions, significant lab abnormalities, going to OR and other pertinent info. @ -Upon arrival patient was placed into hallway 10. Thorough history and physical exam was performed. IV access is established and laboratory studies were conducted. Patient does go for ultrasound which demonstrates no acute process. Laboratory studies are reviewed. I discussed results with the patient. I do feel that there is concern for biliary dyskinesia. I feel that the patient needs a HIDA scan. I did write this on the patient's instructions. She does have an appointment with her doctor coming on. I did recommend that she have a HIDA scan performed for further evaluation. She is to return for any new or worsening symptoms. Patient was agreeable to plan she is discharged in stable condition Undiagnosed new problem with uncertain prognosis? @ -Yes Drug Therapy requiring intensive monitoring for toxicity (Heparin, Nitro, Insulin, Cardizem)? @ -No Were any procedures done? @ -No Diagnosis/symptom? @ -Acute right upper quadrant abdominal pain Acute, or Chronic, or Acute on Chronic? @ -Acute Uncomplicated (without systemic symptoms) or Complicated (systemic symptoms)? @ -Complicated Side effects of treatment? @ -No Exacerbation, Progression, or Severe Exacerbation? @ -No Poses a threat to life or bodily function? How? (Chest pain, [place], [place], pneumonia, PE, COPD, DKA, ARF, appy, cholecystitis, CVA, Diverticulitis, Homicidal, Suicidal, threat to staff... and all critical care pts) @ -No - Lab Data Result diagrams: 12/17/22 17:50 12/17/22 17:50 Lab Results 12/17/22 12/17/22 12/17/22 Range/Units 15:57 17:50 17:50 WBC 8.3 (3.8-10.6) k/uL RBC 5.32 (3.80-5.40) m/uL Hgb 16.7 H (11.4-16.0) gm/dL Hct 50.5 H (34.0-46.0) % MCV 95.0 (80.0-100.0) fL MCH 31.4 (25.0-35.0) pg MCHC 33.0 (31.0-37.0) g/dL RDW 13.0 (11.5-15.5) % Plt Count 198 (150-450) k/uL MPV 8.0 Neutrophils % 57 % Lymphocytes % 31 % Monocytes % 7 % Eosinophils % 3 % Basophils % 1 % Neutrophils # 4.7 (1.3-7.7) k/uL Lymphocytes # 2.6 (1.0-4.8) k/uL Monocytes # 0.5 (0-1.0) k/uL Eosinophils # 0.3 (0-0.7) k/uL Basophils # 0.1 (0-0.2) k/uL Sodium 138 (137-145) mmol/L Potassium 4.2 (3.5-5.1) mmol/L Chloride 102 (98-107) mmol/L Carbon Dioxide 24 (22-30) mmol/L Anion Gap 12 mmol/L BUN 13 (7-17) mg/dL Creatinine 0.70 (0.52-1.04) mg/dL Est GFR (CKD-EPI)AfAm >90 (>60 ml/min/1.73 sqM) Est GFR (CKD-EPI)NonAf >90 (>60 ml/min/1.73 sqM) Glucose 122 H (74-99) mg/dL Calcium 9.2 (8.4-10.2) mg/dL Total Bilirubin 0.5 (0.2-1.3) mg/dL AST 26 (14-36) U/L ALT 24 (4-34) U/L Alkaline Phosphatase 75 (38-126) U/L Total Protein 7.2 (6.3-8.2) g/dL Albumin 4.1 (3.5-5.0) g/dL Amylase 45 (30-110) U/L Lipase 89 (23-300) U/L Urine Color Colorless Urine Appearance Clear (Clear) Urine pH 6.0 (5.0-8.0) Ur Specific [place] 1.002 (1.001-1.035) Urine Protein Negative (Negative) Urine Glucose (UA) Negative (Negative) Urine Ketones Negative (Negative) Urine Blood Negative (Negative) Urine Nitrite Negative (Negative) Urine Bilirubin Negative (Negative) Urine Urobilinogen <2.0 (<2.0) mg/dL Ur Leukocyte Esterase Small H (Negative) Urine RBC 2 (0-5) /hpf Urine WBC 4 (0-5) /hpf Ur Squamous Epith Cells <1 (0-4) /hpf Disposition Clinical Impression: RUQ abdominal pain Disposition: HOME SELF-CARE Condition: Stable Instructions (If sedation given, give patient instructions): Acute Abdominal Pain (ED) Additional Instructions: Please take the pain medication as directed. I think you need a HIDA scan. Please talk to your PCP about the study. Return for any new or worsening symptoms Prescriptions: HYDROcodone/APAP 7.5-325MG [[place] 7.5-325] 1 tab PO Q4HR PRN 3 Days #18 tab PRN Reason: Pain Is patient prescribed a controlled substance at d/c from ED?: Yes When asked, does pt state using other controlled substances?: No If prescribed controlled substance>3 days was MAPS reviewed?: Prescribed <3 Days If opioid is for acute pain is fill amount 7 days or less?: Yes If Rx opioid, was Start Talking consent form obtained?: No Referrals: Thomas Bhat MD [Primary Care Provider] - 1-2 days Jeremy Villegas MD [Medical Doctor] - 1-2 days Time of Disposition: 21:11
[2022-12-17 18:33] LABS: Basophils # (A) 0.1 k/uL (0-0.2); Basophils % (A) 1 %; Eosinophils # (A) 0.3 k/uL (0-0.7); Eosinophils % (A) 3 %; HCT 50.5 % (34.0-46.0); HGB 16.7 gm/dL (11.4-16.0); Lymphocytes # (A) 2.6 k/uL (1.0-4.8); Lymphocytes % (A) 31 %; MCH 31.4 pg (25.0-35.0); Monocytes # (A) 0.5 k/uL (0-1.0); Monocytes % (A) 7 %; Neutrophils # (A) 4.7 k/uL (1.3-7.7); Neutrophils % (A) 57 %; Platelet Count 198 k/uL (150-450); RBC 5.32 m/uL (3.80-5.40); WBC 8.3 k/uL (3.8-10.6)
[2022-12-17 18:42] LABS: ALT 24 U/L (4-34); AST 26 U/L (14-36); African American GFR (CKD) >90 (>60 ml/min/1.73 sqM); Albumin 4.1 g/dL (3.5-5.0); Alkaline Phosphatase 75 U/L (38-126); Amylase 45 U/L (30-110); Anion Gap 12 mmol/L; Blood Urea Nitrogen 13 mg/dL (7-17); Calcium 9.2 mg/dL (8.4-10.2); Carbon Dioxide 24 mmol/L (22-30); Chloride 102 mmol/L (98-107); Glucose 122 mg/dL (74-99); Lipase 89 U/L (23-300); Non-African American GFR(CKD) >90 (>60 ml/min/1.73 sqM); Potassium 4.2 mmol/L (3.5-5.1); Sodium 138 mmol/L (137-145); Total Bilirubin 0.5 mg/dL (0.2-1.3); Total Protein 7.2 g/dL (6.3-8.2)
[2022-12-17] MEDS ORDERED: MORPHINE SULFATE 4 MG/ML SYRINGE IVP STA (19:32)
--- NOTE | 2022-12-17 19:58 | US ---
EXAMINATION TYPE: US gallbladder DATE OF EXAM: 12/17/2022 COMPARISON: 03/30/19 CLINICAL INDICATION: Female, 46 years old with history of abd pain; RUQ pain x 1 week TECHNIQUE: Multiple sonographic images of the right upper quadrant are obtained. Slightly limited due to body habitus FINDINGS: EXAM MEASUREMENTS: Liver Length: 18.2 cm Gallbladder Wall: 0.19 cm CBD: 0.34 cm Right Kidney: 9.6 x 5.1 x 4.7 cm Pancreas: Negative as seen. Liver: Heterogeneous and difficult to penetrate. Gallbladder: Negative as seen. Evidence for sonographic Juan's sign: No CBD: wnl Right Kidney: No hydronephrosis. IMPRESSION: No acute sonographic process. Mild hepatomegaly with coarsened echotexture.
[2022-12-17 21:26] VITALS: BP 135/75; PULSE 65; RESP 16
== END 2022-12-17 21:26 | disposition home or self-care (01) ==
LOC: EC 15:17
DX: R10.11 Right upper quadrant pain (principal); I10 Essential (primary) hypertension; J44.89 Other specified chronic obstructive pulmonary disease; F31.9 Bipolar disorder, unspecified; F41.9 Anxiety disorder, unspecified; F17.200 Nicotine dependence, unspecified, uncomplicated; Z88.8 Allergy status to other drugs, medicaments and biological substances; Z91.09 Other allergy status, other than to drugs and biological substances; Z79.899 Other long term (current) drug therapy; Z91.040 Latex allergy status
CPT/HCPCS: 36415; 80053; 82150; 83690; 85025; 81001; 74018; 76705; 99284; 96374; 96375; 96361; J2270; J1885

== ENCOUNTER 2022-12-31 19:42 | Emergency (ER) | payer MEDICARE, OTHER ==
--- NOTE | 2022-12-31 20:33 | ED ---
General Adult HPI - General Source: patient, RN notes reviewed Mode of arrival: ambulatory Limitations: no limitations <Olya Salazar - Last Filed: 12/31/22 20:30> <Sisi Aguayo - Last Filed: 01/01/23 03:22> - General Chief complaint: Abdominal Pain Stated complaint: Abd/Back Pain Time Seen by Provider: 12/31/22 20:30 - History of Present Illness Initial comments: 47-year-old female presents to the emergency department with chief complaint of right upper abdominal pain. She states that it has been going on for 2 weeks but has worsened today. She reports that the pain is worse with movement. She admits to associated nausea without vomiting. Denies fever, chills. (Olya Salazar) 47-year-old female past medical medical history of asthma, GERD, hypertension who presents to the emergency department reporting right upper quadrant abdominal pain. Patient was seen in the hospital for same complaint on December 17. Laboratory studies were conducted an ultrasound was performed which is negative. She followed up with her primary care doctor. She has a HIDA scan ordered for the . States that she continues to have significant right upper quadrant abdominal pain which has been debilitating. Her primary care doctor gave her prescription for [place] and she states she has been taking it however it does not help. Pain is described as a cramping sensation which is worse with e ating. No radiation of the pain. Today she had some nausea without vomiting. Denies fevers. Denies any changes in her bowel or bladder habits. No concern for as she has had a hysterectomy. Patient does admit to ulcer history. No other alleviating, precipitating or modifying factors (Sisi Aguayo) - Related Data Home Medications Medication Instructions Recorded Confirmed Furosemide [Lasix] 20 mg PO DAILY 05/04/21 12/31/22 Gabapentin 800 mg PO QID 05/04/21 12/31/22 Potassium Chloride [Klor-Con M10] 10 meq PO DAILY 02/28/22 12/31/22 Albuterol Inhaler [Ventolin Hfa 2 puff INHALATION RT-QID PRN 09/07/22 12/31/22 Inhaler] HYDROcodone/APAP 5-325MG [[place] 1 tab PO Q6HR PRN 12/31/22 12/31/22 5-325] OLANZapine [ZyPREXA] 10 mg PO HS 12/31/22 12/31/22 Paliperidone [Paliperidone ER] 12 mg PO HS 12/31/22 12/31/22 cloNIDine HCL [Catapres] 0.2 mg PO BID 12/31/22 12/31/22 risperiDONE [RisperDAL] 6 mg PO HS 12/31/22 12/31/22 Allergies Allergy/AdvReac Type Severity Reaction Status Date / Time latex Allergy Itching Verified 12/31/22 23:04 lithium AdvReac Vomiting Verified 12/31/22 23:04 pregabalin [From Lyrica] AdvReac Vomiting Verified 12/31/22 23:04 topiramate [From Topamax] AdvReac Abdominal Verified 12/31/22 23:04 Pain Review of Systems ROS Other: All systems not noted in ROS Statement are negative. <Olya Salazar - Last Filed: 12/31/22 20:30> ROS Other: All systems not noted in ROS Statement are negative. <Sisi Aguayo - Last Filed: 01/01/23 03:22> ROS Statement: Those systems with pertinent positive or pertinent negative responses have been documented in the HPI. Past Medical History Past Medical History: Asthma, COPD, Fibromyalgia, GERD/Reflux, Hypertension, Musculoskeletal Disorder, Osteoarthritis (OA), Rheumatoid Arthritis (RA) Additional Past Medical History / Comment(s): Neuropathy feet/legs and hands, bulging discs, chronic low back pain, DDD. rib fractures pneumothorax History of Any Multi-Drug Resistant Organisms: MRSA Date of last positivie culture/infection: 05/05/21 MDRO Source:: MRSA LEG Past Surgical History: Hysterectomy, Orthopedic Surgery, Tubal Ligation Additional Past Surgical History / Comment(s): Right knee arthroscopic surg x3; LEEP procedure, partial hysterectomy 2009/ovaries intact, colonoscopy 2013, Past Anesthesia/Blood Transfusion Reactions: No Reported Reaction Past Psychological History: Anxiety, Bipolar, Depression Smoking Status: Current every day smoker Past Alcohol Use History: Occasional Past Drug Use History: None Reported - Past Family History Mother Family Medical History: Cancer, Hypertension Additional Family Medical History / Comment(s): neuropathy; Mother had Colon Cancer Father Family Medical History: No Reported History Additional Family Medical History / Comment(s): Father is bipolar <Olya Salazar - Last Filed: 12/31/22 20:30> General Exam Limitations: no limitations <Olya Salazar - Last Filed: 12/31/22 20:30> General appearance: alert, in no apparent distress Head exam: Present: atraumatic, normocephalic, normal inspection Eye exam: Present: normal appearance, PERRL, EOMI. Absent: scleral icterus, conjunctival injection, periorbital swelling ENT exam: Present: normal exam, mucous membranes moist Neck exam: Present: normal inspection. Absent: tenderness, meningismus, lymphadenopathy Respiratory exam: Present: normal lung sounds bilaterally. Absent: respiratory distress, wheezes, rales, rhonchi, stridor Cardiovascular Exam: Present: regular rate, normal rhythm, normal heart sounds. Absent: systolic murmur, diastolic murmur, rubs, gallop, clicks GI/Abdominal exam: Present: soft, tenderness (Right upper quadrant), normal bowel sounds. Absent: distended, guarding, rebound, rigid Extremities exam: Present: normal inspection, full ROM, normal capillary refill. Absent: tenderness, pedal edema, joint swelling, calf tenderness Back exam: Present: normal inspection Neurological exam: Present: alert, oriented X3, CN II-XII intact Psychiatric exam: Present: normal affect, normal mood Skin exam: Present: warm, dry, intact, normal color. Absent: rash <Sisi Aguayo - Last Filed: 01/01/23 03:22> - General Exam Comments Initial Comments: Visual Physical Exam Vital signs reviewed General: Well-appearing, nontoxic, no acute distress. Head: Normocephalic, atraumatic Eyes: PERRLA, EOMI ENT: Airway patent Chest: Nonlabored breathing Skin: No visual rash, normal skin tone Neuro: Alert and oriented 3 Musculoskeletal: No gross abnormalities (Olya Salazar) Course Vital Signs 12/31/22 12/31/22 19:45 22:47 Temperature 97.5 F L 98.9 F Pulse Rate 70 61 Respiratory 20 18 Rate Blood Pressure 142/89 124/77 O2 Sat by Pulse 98 96 Oximetry Medical Decision Making <Olya Salazar - Last Filed: 12/31/22 20:30> - Lab Data Result diagrams: 12/31/22 20:57 12/31/22 20:57 <Sisi Aguayo - Last Filed: 01/01/23 03:22> - Medical Decision Making I preformed the quick note portion of this chart. Electronically signed by Olya Salazar PA-C (Olya Salazar) Was pt. sent in by a medical professional or institution (MARSHALL Williamson, FIRE POT OPERATOR, urgent care, hospital, or [facility]...) When possible be specific @ -No Did you speak to anyone other than the patient for history (EMS, parent, family, police, friend...)? What history was obtained from this source @ -Spoke with the patient's mother Did you review nursing and triage notes (agree or disagree)? Why? @ -I reviewed and agree with nursing and triage notes Were old charts reviewed (outside hosp., previous admission, EMS record, old EKG, old radiological studies, urgent care reports/EKG's, [facility] records)? Report findings @ -I reviewed the patient's ED visit from December 17 Differential Diagnosis (chest pain, altered mental status, abdominal pain women, abdominal pain men, vaginal bleeding, weakness, fever, dyspnea, syncope, headach e, dizziness, GI bleed, back pain, seizure, CVA, palpatations, mental health, musculoskeletal)? @ -Differential Abdominal Pain Women: Appendicitis, Cholecystitis, diverticulosis, ischemic bowel, pancreatitis, hepatitis, UTI, gastroenteritis, AAA, incarcerated hernia, bowel obstruction, constipation, inflammatory bowel, hepatitis, peptic ulcer disease, splenic infarction, perforated viscus, vulvitis, ovarian torsion, PID, kidney stone, placenta abruption, this is not meant to be an all-inclusive list EKG interpreted by me (3pts min.). @ -Not done X-rays interpreted by me (1pt min.). @ -None done CT interpreted by me (1pt min.). @ -Yes and demonstrates hepatic steatosis U/S interpreted by me (1pt. min.). @ -Negative for acute findings What testing was considered but not performed or refused? (CT, X-rays, U/S, labs)? Why? @ -None What meds were considered but not given or refused? Why? @ -None Did you discuss the management of the patient with other professionals (professionals i.e. MARSHALL Williamson, FIRE POT OPERATOR, lab, RT, psych nurse, social work therapist, brewery worker, teacher, armoured corps officer, case manager specialist)? Give summary @ -No Was smoking cessation discussed for >3mins.? @ -No Was critical care preformed (if so, how long)? @ -No Were there social determinants of health that impacted care today? How? (Homelessness, low income, unemployed, alcoholism, drug addiction, transportation, low edu. Level, literacy, decrease access to med. care, nursing home, rehab)? @ -No Was there de-escalation of care discussed even if they declined (Discuss DNR or withdrawal of care, Hospice)? DNR status @ -No What co-morbidities impacted this encounter? (DM, HTN, Smoking, COPD, CAD, Cancer, CVA, ARF, Chemo, Hep., AIDS, mental health diagnosis, sleep apnea, morbid obesity)? @ -Obesity Was patient admitted / discharged? Hospital course, mention meds given and route, prescriptions, significant lab abnormalities, going to OR and other per tinent info. @ -Upon arrival patient was placed into room 20. Thorough history and physical exam was performed. Laboratory studies are conducted. Ultrasound was ordered from triage. Ultrasound is negative for acute process. I did add on a CT as the patient previously had negative ultrasound. CT demonstrates hepatic steatosis without other acute finding. Results are discussed the patient. Informed her that she needs to have a HIDA scan which cannot be performed to the emergency Department. Recommend that she eat a bland diet. Follow-up for her study which is in a couple of days. Continue taking her pain medications and return for any new or worsening symptoms. Patient agreeable to plan she was discharged in stable condition Undiagnosed new problem with uncertain prognosis? @ -Yes Drug Therapy requiring intensive monitoring for toxicity (Heparin, Nitro, Insulin, Cardizem)? @ -No Were any procedures done? @ -No Diagnosis/symptom? @ -Acute right upper quadrant abdominal pain, hepatic steatosis Acute, or Chronic, or Acute on Chronic? @ -Acute Uncomplicated (without systemic symptoms) or Complicated (systemic symptoms)? @ -Complicated Side effects of treatment? @ -No Exacerbation, Progression, or Severe Exacerbation? @ -No Poses a threat to life or bodily function? How? (Chest pain, [place], HI, pneumonia, PE, COPD, DKA, ARF, appy, cholecystitis, CVA, Diverticulitis, Homicidal, Suicidal, threat to staff... and all critical care pts) @ -No (Sisi Aguayo) - Lab Data Lab Results 12/31/22 12/31/22 12/31/22 Range/Units 20:57 20:57 20:57 WBC 6.8 (3.8-10.6) k/uL RBC 5.18 (3.80-5.40) m/uL Hgb 16.2 H (11.4-16.0) gm/dL Hct 48.0 H (34.0-46.0) % MCV 92.6 (80.0-100.0) fL MCH 31.2 (25.0-35.0) pg MCHC 33.7 (31.0-37.0) g/dL RDW 12.8 (11.5-15.5) % Plt Count 175 (150-450) k/uL MPV 7.5 Neutrophils % 49 % Lymphocytes % 37 % Monocytes % 7 % Eosinophils % 4 % Basophils % 1 % Neutrophils # 3.3 (1.3-7.7) k/uL Lymphocytes # 2.5 (1.0-4.8) k/uL Monocytes # 0.5 (0-1.0) k/uL Eosinophils # 0.3 (0-0.7) k/uL Basophils # 0.1 (0-0.2) k/uL Sodium (137-145) mmol/L Potassium (3.5-5.1) mmol/L Chloride (98-107) mmol/L Carbon Dioxide (22-30) mmol/L Anion Gap mmol/L BUN (7-17) mg/dL Creatinine (0.52-1.04) mg/dL Est GFR (CKD-EPI)AfAm (>60 ml/min/1.73 sqM) Est GFR (CKD-EPI)NonAf (>60 ml/min/1.73 sqM) Glucose (74-99) mg/dL Plasma Lactic Acid Alessio (0.7-2.0) mmol/L Calcium (8.4-10.2) mg/dL Total Bilirubin (0.2-1.3) mg/dL AST (14-36) U/L ALT (4-34) U/L Alkaline Phosphatase (38-126) U/L Total Protein (6.3-8.2) g/dL Albumin (3.5-5.0) g/dL Amylase (30-110) U/L Lipase (23-300) U/L Urine Color Colorless Urine Appearance Clear (Clear) Urine pH 7.0 (5.0-8.0) Ur Specific [place] 1.006 (1.001-1.035) Urine Protein Negative (Negative) Urine Glucose (UA) Negative (Negative) Urine Ketones Negative (Negative) Urine Blood Negative (Negative) Urine Nitrite Negative (Negative) Urine Bilirubin Negative (Negative) Urine Urobilinogen <2.0 (<2.0) mg/dL Ur Leukocyte Esterase Large H (Negative) Urine RBC 2 (0-5) /hpf Urine WBC 14 H (0-5) /hpf Ur Squamous Epith Cells 5 H (0-4) /hpf Amorphous Sediment Rare H (None) /hpf Urine HCG, Qual Not Detected (Not Detectd) 12/31/22 12/31/22 Range/Units 20:57 20:57 WBC (3.8-10.6) k/uL RBC (3.80-5.40) m/uL Hgb (11.4-16.0) gm/dL Hct (34.0-46.0) % MCV (80.0-100.0) fL MCH (25.0-35.0) pg MCHC (31.0-37.0) g/dL RDW (11.5-15.5) % Plt Count (150-450) k/uL MPV Neutrophils % % Lymphocytes % % Monocytes % % Eosinophils % % Basophils % % Neutrophils # (1.3-7.7) k/uL Lymphocytes # (1.0-4.8) k/uL Monocytes # (0-1.0) k/uL Eosinophils # (0-0.7) k/uL Basophils # (0-0.2) k/uL Sodium 137 (137-145) mmol/L Potassium 5.1 (3.5-5.1) mmol/L Chloride 101 (98-107) mmol/L Carbon Dioxide 29 (22-30) mmol/L Anion Gap 7 mmol/L BUN 13 (7-17) mg/dL Creatinine 0.79 (0.52-1.04) mg/dL Est GFR (CKD-EPI)AfAm >90 (>60 ml/min/1.73 sqM) Est GFR (CKD-EPI)NonAf >90 (>60 ml/min/1.73 sqM) Glucose 100 H (74-99) mg/dL Plasma Lactic Acid Alessio 1.2 (0.7-2.0) mmol/L Calcium 9.1 (8.4-10.2) mg/dL Total Bilirubin 0.7 (0.2-1.3) mg/dL AST 38 H (14-36) U/L ALT 36 H (4-34) U/L Alkaline Phosphatase 54 (38-126) U/L Total Protein 7.6 (6.3-8.2) g/dL Albumin 4.2 (3.5-5.0) g/dL Amylase 50 (30-110) U/L Lipase 103 (23-300) U/L Urine Color Urine Appearance (Clear) Urine pH (5.0-8.0) Ur Specific [place] (1.001-1.035) Urine Protein (Negative) Urine Glucose (UA) (Negative) Urine Ketones (Negative) Urine Blood (Negative) Urine Nitrite (Negative) Urine Bilirubin (Negative) Urine Urobilinogen (<2.0) mg/dL Ur Leukocyte Esterase (Negative) Urine RBC (0-5) /hpf Urine WBC (0-5) /hpf Ur Squamous Epith Cells (0-4) /hpf Amorphous Sediment (None) /hpf Urine HCG, Qual (Not Detectd) Disposition <Olya Salazar - Last Filed: 12/31/22 20:30> Is patient prescribed a controlled substance at d/c from ED?: No Time of Disposition: 03:02 <Sisi Aguayo - Last Filed: 01/01/23 03:22> Clinical Impression: RUQ abdominal pain Disposition: HOME SELF-CARE Condition: Stable Instructions (If sedation given, give patient instructions): Abdominal Pain (ED) Additional Instructions: Please eat a bland diet. Follow-up for your HIDA scan. Return for any new or worsening symptoms Referrals: Thomas Bhat MD [Primary Care Provider] - 1-2 days
--- NOTE | 2022-12-31 21:32 | US ---
EXAMINATION TYPE: US gallbladder DATE OF EXAM: 12/31/2022 COMPARISON: 12/17/22 CLINICAL INDICATION: Female, 47 years old with history of RUQ pain x 2 weeks TECHNIQUE: Multiple sonographic images of the right upper quadrant are obtained. FINDINGS: EXAM MEASUREMENTS: Liver Length: 15.8 cm Gallbladder Wall: 0.26 cm CBD: 0.38 cm Right Kidney: 10.2 x 5.1 x 4.9 cm Pancreas: Negative as seen. Liver: Increased attenuation, decreased visualization of vessels suggestive of fatty infiltration. Gallbladder: Limited. Appears wnl. Evidence for sonographic Juan's sign: Yes CBD: wnl Right Kidney: No hydronephrosis. Limitation of the study: Limited due to body habitus IMPRESSION: 1. No acute sonographic process. However, technical producer reports a positive sonographic Juan's sign. If there is clinical suspicion for chronic cholecystitis, would recommend consideration of hepatobili monroe transport HIDA scan NM imaging. 2. Mild hepatomegaly and fatty infiltration of the liver.
[2022-12-31 21:37] LABS: Amorphous Sediment,Urine Rare /hpf; Appearance,Urine Clear (Clear); Bilirubin,Urine Negative (Negative); Blood,Urine Negative (Negative); Color,Urine Colorless; Glucose,Urine (UA) Negative (Negative); Ketones,Urine Negative (Negative); Leukocyte Esterase,Urine Large (Negative); Nitrite,Urine Negative (Negative); Protein,Urine Negative (Negative); RBC,Urine 2 /hpf (0-5); Specific Gravity,Urine 1.006 (1.001-1.035); Squamous Epithelial Cell,Urine 5 /hpf (0-4); Urobilinogen,Urine <2.0 mg/dL (<2.0); WBC,Urine 14 /hpf (0-5)
[2022-12-31 21:44] LABS: Basophils # (A) 0.1 k/uL (0-0.2); Basophils % (A) 1 %; Eosinophils # (A) 0.3 k/uL (0-0.7); Eosinophils % (A) 4 %; HGB 16.2 gm/dL (11.4-16.0); Lymphocytes # (A) 2.5 k/uL (1.0-4.8); Lymphocytes % (A) 37 %; MCH 31.2 pg (25.0-35.0); MCHC 33.7 g/dL (31.0-37.0); MCV 92.6 fL (80.0-100.0); Mean Platelet Volume 7.5; Monocytes # (A) 0.5 k/uL (0-1.0); Monocytes % (A) 7 %; Neutrophils # (A) 3.3 k/uL (1.3-7.7); Neutrophils % (A) 49 %; Platelet Count 175 k/uL (150-450); RBC 5.18 m/uL (3.80-5.40); RDW 12.8 % (11.5-15.5); WBC 6.8 k/uL (3.8-10.6)
[2022-12-31 21:54] LABS: ALT 36 U/L (4-34); African American GFR (CKD) >90 (>60 ml/min/1.73 sqM); Amylase 50 U/L (30-110); Anion Gap 7 mmol/L; Blood Urea Nitrogen 13 mg/dL (7-17); Calcium 9.1 mg/dL (8.4-10.2); Carbon Dioxide 29 mmol/L (22-30); Chloride 101 mmol/L (98-107); Glucose 100 mg/dL (74-99); Lipase 103 U/L (23-300); Non-African American GFR(CKD) >90 (>60 ml/min/1.73 sqM); Sodium 137 mmol/L (137-145); Total Bilirubin 0.7 mg/dL (0.2-1.3)
[2022-12-31 21:55] LABS: AST 38 U/L (14-36); Albumin 4.2 g/dL (3.5-5.0); Alkaline Phosphatase 54 U/L (38-126); Potassium 5.1 mmol/L (3.5-5.1); Total Protein 7.6 g/dL (6.3-8.2)
[2022-12-31] MEDS ORDERED: ONDANSETRON 4 MG/2 ML VIAL IVP STA (22:40)
[2022-12-31] MEDS ORDERED: HYDROmorphone 1 MG/ML 1 ML SYRINGE IVP STA (22:40)
[2022-12-31] MEDS ORDERED: SODIUM CHLORIDE 0.9% 1,000 ML IV ONE (22:40)
[2022-12-31] MEDS ORDERED: FAMOTIDINE 20 MG/2 ML VIAL IV STA (22:40)
[2022-12-31 23:01] VITALS: BP 124/77; PULSE 61; RESP 18; TEMP 98.9
[2023-01-01] MEDS ORDERED: HYDROmorphone 1 MG/ML 1 ML SYRINGE IVP STA (02:08)
--- NOTE | 2023-01-01 02:46 | CT ---
EXAM: CT Abdomen and Pelvis With Intravenous Contrast CLINICAL HISTORY: ITS.REASON CT Reason: ab pain TECHNIQUE: Axial computed tomography images of the abdomen and pelvis with intravenous contrast. CTDI is 69.9 mGy and DLP is 3436 mGy-cm. This CT exam was performed using one or more of the following dose reduction techniques: automated exposure control, adjustment of the mA and/or kV according to patient size, and/or use of iterative reconstruction technique. COMPARISON: CT abdomen/pelvis on 08/23/2018 FINDINGS: Lung bases: Unremarkable. No mass. No consolidation. ABDOMEN: Liver: Hepatic steatosis. Hepatomegaly. Gallbladder and bile ducts: Unremarkable. No calcified stones. No ductal dilation. Pancreas: Unremarkable. No mass. No ductal dilation. Spleen: Mild splenomegaly. Adrenals: Unremarkable. No mass. Kidneys and ureters: Small hypodensity in the right kidney is too small to definitively characterize. No hydronephrosis or obstructing stone. Stomach and bowel: Evaluation of the stomach is limited by underdistention. Diverticulosis without evidence of diverticulitis. No small bowel obstruction. PELVIS: Appendix: Normal appendix. Bladder: Unremarkable. No mass. Reproductive: Prior hysterectomy. ABDOMEN and PELVIS: Intraperitoneal space: Unremarkable. No free air. No significant fluid collection. Bones/joints: Degenerative changes of the spine. No acute fracture. No dislocation. Soft tissues: Small fat-containing umbilical hernia. Vasculature: Mild atherosclerotic changes of the vasculature. No aortic aneurysm or dissection. Lymph nodes: Nonspecific prominent inguinal lymph nodes. IMPRESSION: 1. Hepatic steatosis. Hepatomegaly. 2. Mild splenomegaly.
== END 2023-01-01 03:17 | disposition home or self-care (01) ==
LOC: EC 19:42
DX: K76.0 Fatty (change of) liver, not elsewhere classified (principal); I10 Essential (primary) hypertension; J44.89 Other specified chronic obstructive pulmonary disease; F41.9 Anxiety disorder, unspecified; F31.9 Bipolar disorder, unspecified; E66.9 Obesity, unspecified; F17.200 Nicotine dependence, unspecified, uncomplicated; Z79.899 Other long term (current) drug therapy; Z88.6 Allergy status to analgesic agent; Z88.8 Allergy status to other drugs, medicaments and biological substances; Z91.040 Latex allergy status; Z68.44 Body mass index [BMI] 60.0-69.9, adult
CPT/HCPCS: 36415; 80053; 82150; 83605; 83690; 85025; 81001; 81025; 76705; 74177; 99285; 96374; 96375 ×2; 96376; 96361 ×4; J2405; J3490; J1170; Q9967

== ENCOUNTER → 2023-05-10 | Outpatient (CLI) | payer MEDICARE, OTHER ==
--- NOTE | 2023-05-10 23:33 | XR ---
EXAMINATION TYPE: XR knee complete bilateral DATE OF EXAM: 05/10/2023 COMPARISON: None HISTORY: Pain bilaterally TECHNIQUE: 3 view bilateral knees each FINDINGS: Left knee: There is loss the medial compartment joint space. Medial tibial plateau spurring is presen t. Small lateral tibial plateau spur is present. A lateral femoral condylar spurring is noted. Large posterior patellar spurs and superior patellofemoral joint of the femur is present. No joint effusion is evident. No acute fractures are evident. Right knee: Small medial tibial plateau spur is present. There is narrowing of the medial compartment joint space. Milder narrowing of lateral compartment joint space is present. There is a lateral femo ral condylar spur lateral tibial plateau spur present. An additional medial femoral condylar spurs pr esent. Large superior patellar spurs are present. There is some lucency through the superior patellar spur, correlate with location of the patient's pain. A fracture of the spurs not excluded. No joint effusion is evident. Joint space calcification may be present. IMPRESSION: 1. Moderate degenerative changes left knee. 2. Moderate degenerative changes right knee. 3. Clinical consideration for fracture of the superior patellar spur is recommended. 4. There may be some intraarticular right knee joint space calcifications.
== END | disposition home or self-care (01) ==
LOC: RADMRIMAIN 15:47
PROVIDERS: ATTEND Physical Medicine & Rehabilitation Brain Injury Medicine
DX: M54.16 Radiculopathy, lumbar region (principal); M25.561 Pain in right knee; M25.562 Pain in left knee

== ENCOUNTER → 2023-06-03 | Outpatient (CLI) | payer MEDICARE ==
--- NOTE | 2023-06-03 13:35 | CT ---
EXAMINATION TYPE: CT knee RT wo con DATE OF EXAM: 06/03/2023 COMPARISON: Plain film 05/10/2023 HISTORY: RT knee pain no known injury CT DLP: 580 mGycm Automated exposure control for dose reduction was used. Contrast: None Technique: Axial images 1 mm thick sections. Reconstructed images in the coronal and sagittal plane. Three-D reconstructed images are performed on a separate computer by the technologist. FINDINGS: No acute or subacute fractures are identified. There is loss of the patellofemoral joint space. There is severe narrowing of the medial compartment joint space. Subchondral cyst formation is present within the posterior medial portion of the medial tibial plateau. There is moderate narrowing of the lateral compartment joint space. There is lucency within the superior patellar spur. Fracture of the patellar spur may be present. Exa mple image series 7 image 65. No joint effusion is evident. Posterior inferior patellar spurring is n oted. IMPRESSION: 1. FRACTURE OF THE SUPERIOR POSTERIOR PATELLAR SPURS NOT EXCLUDED. CORRELATE WITH LOCATION OF THE PAT IENT'S PAIN. 2. SEVERE NARROWING MEDIAL COMPARTMENT AND PATELLOFEMORAL COMPARTMENT WITH MORE MODERATE NARROWING OF LATERAL COMPARTMENT JOINT SPACE.
== END | disposition home or self-care (01) ==
LOC: RADCTMAIN 12:07
PROVIDERS: ATTEND Physical Medicine & Rehabilitation Brain Injury Medicine
DX: S82.091A Other fracture of right patella, initial encounter for closed fracture (principal); X58.XXXA Exposure to other specified factors, initial encounter

== ENCOUNTER 2023-11-09 14:49 | Inpatient (IN) | payer MEDICARE, OTHER ==
[2023-11-09 16:01] LABS: Basophils # (A) 0.1 k/uL (0-0.2); Basophils % (A) 1 %; Eosinophils # (A) 0.4 k/uL (0-0.7); Eosinophils % (A) 4 %; HCT 47.7 % (34.0-46.0); HGB 15.5 gm/dL (11.4-16.0); Lymphocytes # (A) 2.3 k/uL (1.0-4.8); Lymphocytes % (A) 21 %; MCH 30.4 pg (25.0-35.0); MCHC 32.6 g/dL (31.0-37.0); MCV 93.5 fL (80.0-100.0); Mean Platelet Volume 7.4; Monocytes # (A) 0.6 k/uL (0-1.0); Monocytes % (A) 6 %; Neutrophils # (A) 7.3 k/uL (1.3-7.7); Neutrophils % (A) 67 %; Platelet Count 258 k/uL (150-450); RBC 5.11 m/uL (3.80-5.40); RDW 13.3 % (11.5-15.5); WBC 10.9 k/uL (3.8-10.6)
--- NOTE | 2023-11-09 16:12 | XR ---
EXAMINATION TYPE: XR chest 2V DATE OF EXAM: 11/09/2023 COMPARISON: 09/19/2022 HISTORY: Difficulty in breathing TECHNIQUE: Frontal and lateral views of the chest are obtained. FINDINGS: Right middle lobe infiltrate may reflect developing pneumonia. Correlate clinically. No evidence for pneumothorax. No pleural effusion. The cardiac silhouette size is within normal limits. The osseous structures are grossly intact. IMPRESSION: 1. Right middle lobe infiltrate may reflect developing pneumonia. Correlate clinically. [facility], , 11/09/2023 4:09 PM
[2023-11-09 16:14] LABS: ALT 34 U/L (4-34); AST 30 U/L (14-36); African American GFR (CKD) 76 (>60 ml/min/1.73 sqM); Albumin 3.6 g/dL (3.5-5.0); Alkaline Phosphatase 97 U/L (38-126); Anion Gap 5 mmol/L; Blood Urea Nitrogen 24 mg/dL (7-17); Calcium 9.7 mg/dL (8.4-10.2); Carbon Dioxide 32 mmol/L (22-30); Chloride 100 mmol/L (98-107); Glucose 140 mg/dL (74-99); INR 0.9 (<1.2); Non-African American GFR(CKD) 66 (>60 ml/min/1.73 sqM); Partial Thromboplastin Time 28.3 sec (22.0-30.0); Potassium 4.3 mmol/L (3.5-5.1); Prothrombin Time 9.9 sec (10.0-12.5); Sodium 137 mmol/L (137-145); Total Bilirubin 0.4 mg/dL (0.2-1.3); Total Protein 6.7 g/dL (6.3-8.2)
[2023-11-09 16:23] LABS: NT-Pro-B-Type Natriuretic Pept <20 pg/mL
--- NOTE | 2023-11-09 16:25 | ED ---
General Adult HPI - General Chief complaint: Shortness of Breath Stated complaint: SOB Time Seen by Provider: 11/09/23 16:07 Source: patient, RN notes reviewed Mode of arrival: wheelchair Limitations: no limitations - History of Present Illness Initial comments: 47-year-old female presents emergency department complaint of shortness of breath. Patient states she has a history of asthma, COPD states that she has been sick for 1 week. She was seen at urgent care was given steroids decongestant as had minimal relief. Patient states that she continues to have wheezing, shortness of breath she states she is a daily smoker. Patient said none multiple breathing treatments with no relief. Denies any abdominal pain no leg swelling no history of CHF. - Related Data Home Medications Medication Instructions Recorded Confirmed Furosemide [Lasix] 20 mg PO DAILY 05/04/21 12/31/22 Gabapentin 800 mg PO QID 05/04/21 12/31/22 Potassium Chloride [Klor-Con M10] 10 meq PO DAILY 02/28/22 12/31/22 Albuterol Inhaler [Ventolin Hfa 2 puff INHALATION RT-QID PRN 09/07/22 12/31/22 Inhaler] HYDROcodone/APAP 5-325MG [Clive 1 tab PO Q6HR PRN 12/31/22 12/31/22 5-325] OLANZapine [ZyPREXA] 10 mg PO HS 12/31/22 12/31/22 Paliperidone [Paliperidone ER] 12 mg PO HS 12/31/22 12/31/22 cloNIDine HCL [Catapres] 0.2 mg PO BID 12/31/22 12/31/22 risperiDONE [RisperDAL] 6 mg PO HS 12/31/22 12/31/22 Allergies Allergy/AdvReac Type Severity Reaction Status Date / Time latex Allergy Itching Verified 11/09/23 15:00 lithium AdvReac Vomiting Verified 11/09/23 15:00 pregabalin [From Lyrica] AdvReac Vomiting Verified 11/09/23 15:00 topiramate [From Topamax] AdvReac Abdominal Verified 11/09/23 15:00 Pain Review of Systems ROS Statement: Those systems with pertinent positive or pertinent negative responses have been documented in the HPI. ROS Other: All systems not noted in ROS Statement are negative. Past Medical History Past Medical History: Asthma, COPD, Fibromyalgia, GERD/Reflux, Hypertension, Musculoskeletal Disorder, Osteoarthritis (OA), Rheumatoid Arthritis (RA) Additional Past Medical History / Comment(s): Neuropathy feet/legs and hands, bulging discs, chronic low back pain, DDD. rib fractures pneumothorax History of Any Multi-Drug Resistant Organisms: MRSA Date of last positivie culture/infection: 05/05/21 MDRO Source:: MRSA LEG Past Surgical History: Hysterectomy, Orthopedic Surgery, Tubal Ligation Additional Past Surgical History / Comment(s): Right knee arthroscopic surg x3; LEEP procedure, partial hysterectomy 2009/ovaries intact, colonoscopy 2013, Past Anesthesia/Blood Transfusion Reactions: No Reported Reaction Past Psychological History: Anxiety, Bipolar, Depression Smoking Status: Current every day smoker Past Alcohol Use History: Occasional Past Drug Use History: None Reported - Past Family History Mother Family Medical History: Cancer, Hypertension Additional Family Medical History / Comment(s): neuropathy; Mother had Colon Cancer Father Family Medical History: No Reported History Additional Family Medical History / Comment(s): Father is bipolar General Exam Limitations: no limitations General appearance: alert, in no apparent distress Head exam: Present: atraumatic, normocephalic, normal inspection Eye exam: Present: normal appearance, PERRL, EOMI. Absent: scleral icterus, conjunctival injection, periorbital swelling ENT exam: Present: normal exam, mucous membranes moist Neck exam: Present: normal inspection. Absent: tenderness, meningismus, lymphadenopathy Respiratory exam: Present: wheezes, rhonchi. Absent: normal lung sounds bilaterally, respiratory distress, rales, stridor Cardiovascular Exam: Present: regular rate, normal rhythm, normal heart sounds. Absent: systolic murmur, diastolic murmur, rubs, gallop, clicks GI/Abdominal exam: Present: soft, normal bowel sounds. Absent: distended, tenderness, guarding, rebound, rigid Course Vital Signs 11/09/23 11/09/23 11/09/23 14:58 16:39 16:50 Temperature 98.2 F Pulse Rate 83 67 75 Respiratory 15 Rate Blood Pressure 93/59 O2 Sat by Pulse 90 L Oximetry 11/09/23 16:55 Temperature Pulse Rate 76 Respiratory 20 Rate Blood Pressure 91/64 O2 Sat by Pulse 91 L Oximetry EKG Findings - EKG Comments: EKG Findings:: EKG performed at 15: 36 sinus rhythm rate 69 ND 163 QRS 100 QT/QTc 384/404 - EKG Results: EKG: interpreted by RITUD Medical Decision Making - Medical Decision Making Was pt. sent in by a medical professional or institution (MARSHALL Williamson, ASSEMBLY MANAGER, urgent care, hospital, or intermediate...) When possible be specific @ -No Did you speak to anyone other than the patient for history (EMS, parent, family, police, friend...)? What history was obtained from this source @ -No Did you review nursing and triage notes (agree or disagree)? Why? @ -I reviewed and agree with nursing and triage notes Were old charts reviewed (outside hosp., previous admission, EMS record, old EKG, old radiological studies, urgent care reports/EKG's, intermediate records)? Report findings @ -No old charts were reviewed Differential Diagnosis (chest pain, altered mental status, abdominal pain women, abdominal pain men, vaginal bleeding, weakness, fever, dyspnea, syncope, headache, dizziness, GI bleed, back pain, seizure, CVA, palpatations, mental health, musculoskeletal)? @ -Differential Dyspnea: Coronary syndrome, arrhythmia, tamponade, asthma, COPD, pulmonary embolism, pneumonia, pneumothorax, pulmonary effusion, anaphylaxis, diabetic ketoacidosis, flailed chest, pulmonary contusion, diaphragmatic rupture, anemia, neuromuscular, this is not meant to be an all-inclusive list. EKG interpreted by me (3pts min.). @ -As above X-rays interpreted by me (1pt min.). @ -Chest x-ray shows right middle lobe pneumonia CT interpreted by me (1pt min.). @ -None done U/S interpreted by me (1pt. min.). @ -None done What testing was considered but not performed or refused? (CT, X-rays, U/S, labs)? Why? @ -None What meds were considered but not given or refused? Why? @ -None Did you discuss the management of the patient with other professionals (prof steve i.e. MARSHALL Williamson, ASSEMBLY MANAGER, lab, RT, psych nurse, social media marketing manager, counselor aide, teacher, development officer, sample case porter)? Give summary @ -EMH for admission Was smoking cessation discussed for >3mins.? @ -No Was critical care preformed (if so, how long)? @ -No Were there social determinants of health that impacted care today? How? (Homelessness, low income, unemployed, alcoholism, drug addiction, transporta tion, low edu. Level, literacy, decrease access to med. care, assisted, rehab)? @ -No Was there de-escalation of care discussed even if they declined (Discuss DNR or withdrawal of care, Hospice)? DNR status @ -No What co-morbidities impacted this encounter? (DM, HTN, Smoking, COPD, CAD, Cancer, CVA, ARF, Chemo, Hep., AIDS, mental health diagnosis, sleep apnea, morbid obesity)? @ -COPD, asthma Was patient admitted / discharged? Hospital course, mention meds given and route, prescriptions, significant lab abnormalities, going to OR and other pertinent info. @ -Admitted patient's found to have right lower lobe pneumonia, COPD exacerbation mild hypoxia. Patient did receive, Rocephin, azithromycin, multiple breathing treatments. Patient continue updrafts, antibiotics with pulmonary consult. Undiagnosed new problem with uncertain prognosis? @ -No Drug Therapy requiring intensive monitoring for toxicity (Heparin, Nitro, Insulin, Cardizem)? @ -No Were any procedures done? @ -No Diagnosis/symptom? @ -Pneumonia, COPD exacerbation Acute, or Chronic, or Acute on Chronic? @ -Acute Uncomplicated (without systemic symptoms) or Complicated (systemic symptoms)? @ -Complicated Side effects of treatment? @ -No Exacerbation, Progression, or Severe Exacerbation? @ -[COPD exacerbation Poses a threat to life or bodily function? How? (Chest pain, [place], [place], pneumonia, PE, COPD, DKA, ARF, appy, cholecystitis, CVA, Diverticulitis, Homicidal, Suicidal, threat to staff... and all critical care pts) @ -Yes pneumonia, COPD, respiratory failure - Lab Data Result diagrams: 11/09/23 15:50 11/09/23 15:50 Lab Results 11/09/23 11/09/23 11/09/23 Range/Units 15:50 15:50 15:50 WBC 10.9 H (3.8-10.6) k/uL RBC 5.11 (3.80-5.40) m/uL Hgb 15.5 (11.4-16.0) gm/dL Hct 47.7 H (34.0-46.0) % MCV 93.5 (80.0-100.0) fL MCH 30.4 (25.0-35.0) pg MCHC 32.6 (31.0-37.0) g/dL RDW 13.3 (11.5-15.5) % Plt Count 258 (150-450) k/uL MPV 7.4 Neutrophils % 67 % Lymphocytes % 21 % Monocytes % 6 % Eosinophils % 4 % Basophils % 1 % Neutrophils # 7.3 (1.3-7.7) k/uL Lymphocytes # 2.3 (1.0-4.8) k/uL Monocytes # 0.6 (0-1.0) k/uL Eosinophils # 0.4 (0-0.7) k/uL Basophils # 0.1 (0-0.2) k/uL PT 9.9 L (10.0-12.5) sec INR 0.9 (<1.2) APTT 28.3 (22.0-30.0) sec D-Dimer 0.55 (<0.60) mg/L FEU Sodium 137 (137-145) mmol/L Potassium 4.3 (3.5-5.1) mmol/L Chloride 100 (98-107) mmol/L Carbon Dioxide 32 H (22-30) mmol/L Anion Gap 5 mmol/L BUN 24 H (7-17) mg/dL Creatinine 1.03 (0.52-1.04) mg/dL Est GFR (CKD-EPI)AfAm 76 (>60 ml/min/1.73 sqM) Est GFR (CKD-EPI)NonAf 66 (>60 ml/min/1.73 sqM) Glucose 140 H (74-99) mg/dL Plasma Lactic Acid Alessio (0.7-2.0) mmol/L Calcium 9.7 (8.4-10.2) mg/dL Total Bilirubin 0.4 (0.2-1.3) mg/dL AST 30 (14-36) U/L ALT 34 (4-34) U/L Alkaline Phosphatase 97 (38-126) U/L Troponin I (0.000-0.034) ng/mL NT-Pro-B Natriuret Pep <20 pg/mL Total Protein 6.7 (6.3-8.2) g/dL Albumin 3.6 (3.5-5.0) g/dL 09/24/24 09/24/24 Range/Units 15:50 15:50 WBC (3.8-10.6) k/uL RBC (3.80-5.40) m/uL Hgb (11.4-16.0) gm/dL Hct (34.0-46.0) % MCV (80.0-100.0) fL MCH (25.0-35.0) pg MCHC (31.0-37.0) g/dL RDW (11.5-15.5) % Plt Count (150-450) k/uL MPV Neutrophils % % Lymphocytes % % Monocytes % % Eosinophils % % Basophils % % Neutrophils # (1.3-7.7) k/uL Lymphocytes # (1.0-4.8) k/uL Monocytes # (0-1.0) k/uL Eosinophils # (0-0.7) k/uL Basophils # (0-0.2) k/uL PT (10.0-12.5) sec INR (<1.2) APTT (22.0-30.0) sec D-Dimer (<0.60) mg/L FEU Sodium (137-145) mmol/L Potassium (3.5-5.1) mmol/L Chloride (98-107) mmol/L Carbon Dioxide (22-30) mmol/L Anion Gap mmol/L BUN (7-17) mg/dL Creatinine (0.52-1.04) mg/dL Est GFR (CKD-EPI)AfAm (>60 ml/min/1.73 sqM) Est GFR (CKD-EPI)NonAf (>60 ml/min/1.73 sqM) Glucose (74-99) mg/dL Plasma Lactic Acid Alessio 1.2 (0.7-2.0) mmol/L Calcium (8.4-10.2) mg/dL Total Bilirubin (0.2-1.3) mg/dL AST (14-36) U/L ALT (4-34) U/L Alkaline Phosphatase (38-126) U/L Troponin I <0.012 (0.000-0.034) ng/mL NT-Pro-B Natriuret Pep pg/mL Total Protein (6.3-8.2) g/dL Albumin (3.5-5.0) g/dL Disposition Clinical Impression: COPD exacerbation, Pneumonia, Hypoxia Disposition: ADMITTED IP TO THIS HOSP Condition: Fair Referrals: Thomas Bhat MD [Primary Care Provider] - 1-2 days Time of Disposition: 17:22
[2023-11-09] MEDS: IPRATROPIUM-ALBUTEROL 3 ML NEB INHALATION STA (16:37)
[2023-11-09] MEDS: methylPREDNISolone SOD SUCCI 125 MG/2 ML VIAL IV STA (16:55)
[2023-11-09] MEDS ORDERED: PNEUMONIA PROTOCOL UTILIZED 1 EACH MISC PO PRN (17:18)
[2023-11-09] MEDS ORDERED: IPRATROPIUM-ALBUTEROL 3 ML NEB INHALATION PRN (17:18)
[2023-11-09] MEDS: SODIUM CHLORIDE 0.9% 1,000 ML IV ONE (18:03)
[2023-11-09] MEDS: SODIUM CHLORIDE 0.9% 500 ML 500 ML IV ONE (18:05)
[2023-11-09] MEDS ORDERED: FUROSEMIDE 20 MG TAB PO PRN (20:09)
[2023-11-09] MEDS: IPRATROPIUM-ALBUTEROL 3 ML NEB INHALATION SCH (20:10)
[2023-11-09] MEDS: AZITHROMYCIN 500 MG in SODIUM CHLORIDE 0.9% 250 ML IVPB STA (20:27)
[2023-11-09] MEDS: IBUPROFEN 800 MG TAB PO SCH (20:29)
[2023-11-09] MEDS: cloNIDine HCL 0.2 MG TAB PO SCH (20:29)
[2023-11-09] MEDS: hydrOXYzine pamoate 25 MG CAP PO SCH (20:29)
[2023-11-09] MEDS: GABAPENTIN 400 MG CAP PO SCH (20:30)
[2023-11-09] MEDS: OLANZapine 10 MG TAB PO SCH (20:31)
[2023-11-09] MEDS: traMADol 50 MG TAB PO PRN (20:53)
[2023-11-09] MEDS: PALIPERIDONE 6 MG TAB.ER.24 PO SCH (20:54)
--- NOTE | 2023-11-10 07:03 | P.HPIM ---
History of Present Illness This is a pleasant 47 years old female who presents because of ongoing dyspnea for about 1 week associated with exertional dyspnea Patient also complaining from cough and creamy green phlegm She is has left-sided chest pain 7/10 associated with coughing She smokes 1 pack/day at home and she was counseled to quit and she agrees to the nicotine patch No alcohol or illicit drugs She denies GI/ symptoms. No headache or dizziness. No weakness or tingling She is hemodynamically stable, she is saturating 93% on 2 L oxygen via nasal cannula Labs reviewed she has mild leukocytosis at 10.9, rest of labs including BMP, liver enzymes troponin are unremarkable, glucose slightly elevated at 140 proBNP is low less than 20 D-dimer is negative at 0.55 EKG showing sinus rhythm at [address]-T changes Chest x-ray showing right middle lobe infiltrates, reviewed by myself and I agree Patient was started on Rocephin and admitted with pulmonary team consult Review of Systems Review of systems CONSTITUTIONAL: No fever, no malaise, no fatigue. HEENT: No recent visual problems or hearing problems. Denied any sore throat. CARDIOVASCULAR: No orthopnea, PND, no palpitations, no syncope. PULMONARY: No chest wall tenderness, no hemoptysis. GASTROINTESTINAL: No diarrhea, no nausea, no vomiting, no abdominal pain. Normoactive bowel sounds. NEUROLOGICAL: No headaches, no weakness, no numbness. HEMATOLOGICAL: Denies any bleeding or petechiae. GENITOURINARY: Denies any burning micturition, frequency, or urgency. MUSCULOSKELETAL/RHEUMATOLOGICAL: Denies any joint pain, swelling, or any muscle pain. ENDOCRINE: Denies any polyuria or polydipsia. Past Medical History Past Medical History: Asthma, COPD, Fibromyalgia, GERD/Reflux, Hypertension, Musculoskeletal Disorder, Osteoarthritis (OA), Rheumatoid Arthritis (RA) Additional Past Medical History / Comment(s): Neuropathy feet/legs and hands, bulging discs, chronic low back pain, DDD. rib fractures pneumothorax History of Any Multi-Drug Resistant Organisms: MRSA Date of last positivie culture/infection: 05/05/21 MDRO Source:: MRSA LEG Past Surgical History: Hysterectomy, Orthopedic Surgery, Tubal Ligation Additional Past Surgical History / Comment(s): Right knee arthroscopic surg x3; LEEP procedure, partial hysterectomy 2009/ovaries intact, colonoscopy 2013, Past Anesthesia/Blood Transfusion Reactions: No Reported Reaction Past Psychological History: Anxiety, Bipolar, Depression Smoking Status: Current every day smoker Past Alcohol Use History: Occasional Past Drug Use History: None Reported - Past Family History Mother Family Medical History: Cancer, Hypertension Additional Family Medical History / Comment(s): neuropathy; Mother had Colon Cancer Father Family Medical History: No Reported History Additional Family Medical History / Comment(s): Father is bipolar Medications and Allergies Home Medications Medication Instructions Recorded Confirmed Type Furosemide [Lasix] 20 mg PO DAILY PRN 05/04/21 11/09/23 History Gabapentin 800 mg PO QID 05/04/21 11/09/23 History Albuterol Inhaler [Ventolin Hfa 2 puff INHALATION RT-Q4H PRN 09/07/22 11/09/23 History Inhaler] OLANZapine [ZyPREXA] 10 mg PO HS 12/31/22 11/09/23 History Paliperidone [Paliperidone ER] 12 mg PO HS 12/31/22 11/09/23 History cloNIDine HCL [Catapres] 0.2 mg PO BID 12/31/22 11/09/23 History Fluticasone/Umeclidin/Vilanter 1 puff INHALATION RT-DAILY 11/09/23 11/09/23 History [Trelegy Ellipta 100-62.5-25] Ibuprofen [Motrin] 800 mg PO BID-W/MEALS 11/09/23 11/09/23 History Lidocaine 5% Oint [Xylocaine 5% 1 applic TOPICAL QID PRN 11/09/23 11/09/23 History Oint] Lidocaine 5% Patch [Lidoderm] 1 patch TOPICAL DAILY PRN 11/09/23 11/09/23 History Lisinopril-Hctz 10-12.5 mg 1 tab PO DAILY 11/09/23 11/09/23 History [Zestoretic 10-12.5] buPROPion [Wellbutrin] 100 mg PO DAILY 11/09/23 11/09/23 History hydrOXYzine pamoate [Vistaril] 25 mg PO BID 11/09/23 11/09/23 History methocarbamoL [Robaxin-750] 750 mg PO BID PRN 11/09/23 11/09/23 History traMADol HCL 50 mg PO QID 11/09/23 11/09/23 History Allergies Allergy/AdvReac Type Severity Reaction Status Date / Time latex Allergy Itching Verified 11/09/23 17:48 lithium AdvReac Vomiting Verified 11/09/23 17:48 pregabalin [From Lyrica] AdvReac Vomiting Verified 11/09/23 17:48 topiramate [From Topamax] AdvReac Abdominal Verified 11/09/23 17:48 Pain Physical Exam Vitals: Vital Signs Temp Pulse Resp BP Pulse Ox 11/10/23 06:00 98.2 F 64 19 117/76 93 L 11/10/23 02:09 80 20 93 L 11/09/23 23:51 98.5 F 11/09/23 22:26 85 20 127/71 93 L 11/09/23 20:20 79 11/09/23 20:10 78 11/09/23 19:31 77 19 120/79 93 L 11/09/23 18:05 83 22 120/80 93 L 11/09/23 16:55 76 20 91/64 91 L 11/09/23 16:50 75 11/09/23 16:39 67 11/09/23 14:58 98.2 F 83 15 93/59 90 L Intake and Output 11/09/23 11/09/23 11/10/23 14:59 22:59 06:59 Other: Weight 158.757 kg -GENERAL: The patient is alert and oriented x3, not in any acute distress. Well developed, well nourished. Morbidly obese HEENT: Pupils are round and equally reacting to light. EOMI. No scleral icterus. No conjunctival pallor. Normocephalic, atraumatic. No pharyngeal erythema. No thyromegaly. CARDIOVASCULAR: S1 and S2 present. No murmurs, rubs, or gallops. -PULMONARY: Chest is clear to auscultation, bilateral scattered wheezing , no crackles. ABDOMEN: Soft, nontender, nondistended, normoactive bowel sounds. No palpable organomegaly. MUSCULOSKELETAL: No joint swelling or deformity. EXTREMITIES: No cyanosis, clubbing, or pedal edema. NEUROLOGICAL: Gross neurological examination did not reveal any focal deficits. SKIN: No rashes. no petechiae. Results CBC & Chem 7: 11/09/23 15:50 11/09/23 15:50 Labs: Abnormal Lab Results - Last 24 Hours (Table) 11/09/23 11/09/23 11/09/23 Range/Units 15:50 15:50 15:50 WBC 10.9 H (3.8-10.6) k/uL Hct 47.7 H (34.0-46.0) % PT 9.9 L (10.0-12.5) sec Carbon Dioxide 32 H (22-30) mmol/L BUN 24 H (7-17) mg/dL Glucose 140 H (74-99) mg/dL Assessment and Plan Assessment: Right middle lobe community-acquired pneumonia Acute hypoxic respiratory failure Acute asthma exacerbation with possible some elements of COPD Morbid obesity with BMI of 64 Hyperglycemia, rule out diabetes mellitus Plan: Continue ceftriaxone Pulmonary team consult Oxygen therapy Bronchodilators and Symbicort Check for respiratory viruses Labs and medication were reviewed.. Continue same treatment. Continue with symptomatic treatment. Resume home medication. Monitor labs and vitals. DVT and GI prophylaxis. Further recommendations as per clinical course of the patient DVT prophylaxis: Subcutaneous heparin GI Prophylaxis: Pepcid PT/OT: Pending Prognosis is guarded
[2023-11-10] MEDS: SYMBICORT 160-4.5 MCG INHALER INHALATION SCH (08:09)
--- NOTE | 2023-11-10 08:11 | XR ---
EXAMINATION TYPE: XR chest 1V portable DATE OF EXAM: 11/10/2023 COMPARISON: 11/09/2023 INDICATION: Pneumonia TECHNIQUE: Single frontal view of the chest is obtained. FINDINGS: The heart size is mild the prominent. The pulmonary vasculature is normal. The lungs are clear. IMPRESSION: 1. Cardiomegaly. [facility], , 11/10/2023 8:09 AM
[2023-11-10] MEDS: buPROPion 100 MG TAB PO SCH (08:48)
[2023-11-10] MEDS: LISINOPRIL-HCTZ 10-12.5 MG 1 EACH TAB PO SCH (08:49)
[2023-11-10] MEDS: NICOTINE 21MG/24HR PATCH TRANSDERM SCH (08:49)
[2023-11-10 10:43] LABS: Basophils % (A) 0.8 %; Eosinophils # (A) 0.02 X 10*3/uL (0.04-0.35); Eosinophils % (A) 0.2 %; HCT 48.4 % (37.2-46.3); HGB 15.4 g/dL (12.0-15.0); Lymphocytes # (A) 1.08 X 10*3/uL (0.90-5.00); Lymphocytes % (A) 9.1 %; MCH 30.6 pg (27.0-32.0); MCHC 31.8 g/dL (32.0-37.0); MCV 96.2 FL (80.0-97.0); Mean Platelet Volume 9.9 FL (9.5-12.2); Monocytes # (A) 0.13 X 10*3/uL (0.20-1.00); Monocytes % (A) 1.1 %; NRBC Per 100 WBC 0 X 10*3/uL (0.00-0.01); Neutrophils # (A) 9.92 X 10*3/uL (1.80-7.70); Platelet Count 224 X 10*3/uL (140-440); RBC 5.03 X 10*6/uL (4.10-5.20); RDW 13.7 % (11.5-14.5); WBC 11.82 X 10*3/uL (4.50-10.00)
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
[2023-11-11 11:10] LABS: Basophils # (A) 0.08 X 10*3/uL (0.00-0.10); Basophils % (A) 0.8 %; Eosinophils # (A) 0.19 X 10*3/uL (0.04-0.35); HCT 47.1 % (37.2-46.3); Lymphocytes # (A) 3.05 X 10*3/uL (0.90-5.00); MCH 30.6 pg (27.0-32.0); MCHC 31.8 g/dL (32.0-37.0); MCV 96.1 FL (80.0-97.0); Mean Platelet Volume 9.9 FL (9.5-12.2); Monocytes # (A) 0.75 X 10*3/uL (0.20-1.00); Monocytes % (A) 7.9 %; NRBC Per 100 WBC 0 X 10*3/uL (0.00-0.01); Neutrophils # (A) 5.27 X 10*3/uL (1.80-7.70); Neutrophils % (A) 55.4 %; Platelet Count 217 X 10*3/uL (140-440); RDW 13.7 % (11.5-14.5); WBC 9.52 X 10*3/uL (4.50-10.00)
--- NOTE | 2023-11-11 11:26 | P.PN ---
Subjective This is a pleasant 47 years old female who presents because of ongoing dyspnea for about 1 week associated with exertional dyspnea Patient also complaining from cough and creamy green phlegm She is has left-sided chest pain 08/24 associated with coughing She smokes 1 pack/day at home and she was counseled to quit and she agrees to the nicotine patch No alcohol or illicit drugs She denies GI/ symptoms. No headache or dizziness. No weakness or tingling She is hemodynamically stable, she is saturating 93% on 2 L oxygen via nasal cannula Labs reviewed she has mild leukocytosis at 10.9, rest of labs including BMP, liver enzymes troponin are unremarkable, glucose slightly elevated at 140 proBNP is low less than 20 D-dimer is negative at 0.55 EKG showing sinus rhythm at [address]-T changes Chest x-ray showing right middle lobe infiltrates, reviewed by myself and I agree Patient was started on Rocephin and admitted with pulmonary team consult 11/10 Patient still complaining from shortness of breath, with some improvement Still coughing with some improvement She has mild leukocytosis She is saturating 93% on 2 L oxygen via nasal cannula She is on ceftriaxone Objective - Vital Signs Vital signs: Vital Signs Temp 97.7 F 11/11/23 07:00 Pulse 76 11/11/23 10:02 Resp 17 11/11/23 08:00 BP 90/62 11/11/23 07:00 Pulse Ox 95 11/11/23 09:54 FiO2 Intake & Output 11/10/23 11/11/23 11/11/23 18:59 06:59 18:59 Intake Total 236 118 Balance 236 118 Weight 158.757 kg Intake: Oral 236 118 Other: Voiding Method Toilet Toilet Toilet # Voids 2 1 - Exam -GENERAL: The patient is alert and oriented x3, not in any acute distress. Well developed, well nourished. Morbidly obese HEENT: Pupils are round and equally reacting to light. EOMI. No scleral icterus. No conjunctival pallor. Normocephalic, atraumatic. No pharyngeal erythema. No thyromegaly. CARDIOVASCULAR: S1 and S2 present. No murmurs, rubs, or gallops. -PULMONARY: Chest is clear to auscultation, n bilateral scattered wheezing , no crackles. ABDOMEN: Soft, nontender, nondistended, normoactive bowel sounds. No palpable organomegaly. MUSCULOSKELETAL: No joint swelling or deformity. EXTREMITIES: No cyanosis, clubbing, or pedal edema. NEUROLOGICAL: Gross neurological examination did not reveal any focal deficits. SKIN: No rashes. no petechiae. - Labs CBC & Chem 7: 11/11/23 06:25 11/09/23 15:50 Labs: Abnormal Lab Results - Last 24 Hours (Table) 11/11/23 Range/Units 06:25 Hct 47.1 H (37.2-46.3) % MCHC 31.8 L (32.0-37.0) g/dL Immature Gran # 0.18 H (0.00-0.04) X 10*3/uL Microbiology - Last 24 Hours (Table) 11/09/23 18:10 Blood Culture - Preliminary Blood 11/09/23 20:10 Gram Stain - Preliminary Sputum Assessment and Plan Assessment: Right middle lobe community-acquired pneumonia Acute hypoxic respiratory failure Acute asthma exacerbation with possible some elements of COPD Morbid obesity with BMI of 64 Hyperglycemia, rule out diabetes mellitus Plan: Continue ceftriaxone Pulmonary team consult Oxygen therapy Bronchodilators and Symbicort Check for respiratory viruses Labs and medication were reviewed.. Continue same treatment. Continue with symptomatic treatment. Resume home medication. Monitor labs and vitals. DVT and GI prophylaxis. Further recommendations as per clinical course of the patient DVT prophylaxis: Subcutaneous heparin GI Prophylaxis: Pepcid PT/OT: Pending Prognosis is guarded
[2023-11-11] MEDS: BENZONATATE 100 MG CAP PO PRN (13:37)
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
[2023-11-12 08:28] LABS: Blood Urea Nitrogen 18.5 mg/dL (9.0-27.0); Carbon Dioxide 23.7 mmol/L (21.6-31.8); Chloride 100 mmol/L (96-109); Glucose 256 mg/dL (70-110); Potassium 5.1 mmol/L (3.5-5.5); Sodium 136 mmol/L (135-145)
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
[2023-11-12] MEDS: predniSONE 20 MG TAB PO SCH (16:37)
--- NOTE | 2023-11-12 22:06 | P.PN ---
Subjective This is a pleasant 47 years old female who presents because of ongoing dyspnea for about 1 week associated with exertional dyspnea Patient also complaining from cough and creamy green phlegm She is has left-sided chest pain 08/24 associated with coughing She smokes 1 pack/day at home and she was counseled to quit and she agrees to the nicotine patch No alcohol or illicit drugs She denies GI/ symptoms. No headache or dizziness. No weakness or tingling She is hemodynamically stable, she is saturating 93% on 2 L oxygen via nasal cannula Labs reviewed she has mild leukocytosis at 10.9, rest of labs including BMP, liver enzymes troponin are unremarkable, glucose slightly elevated at 140 proBNP is low less than 20 D-dimer is negative at 0.55 EKG showing sinus rhythm at [address]-T changes Chest x-ray showing right middle lobe infiltrates, reviewed by myself and I agree Patient was started on Rocephin and admitted with pulmonary team consult 11/10 Patient still complaining from shortness of breath, with some improvement Still coughing with some improvement She has mild leukocytosis She is saturating 93% on 2 L oxygen via nasal cannula She is on ceftriaxone 11/11 Patient states her breathing is improving, is not back to baseline yet She still has scattered wheezing She was started on prednisone 40 mg today She is continued on ceftriaxone, her leukocytosis down to reference range at 9.5 today Patient will need outpatient follow-up with pulmonary service Possible discharge in 24 to 48 hours if she keeps improving Objective - Vital Signs Vital signs: Vital Signs Temp 97.5 F L 11/12/23 07:00 Pulse 75 11/12/23 11:52 Resp 16 11/12/23 07:00 BP 104/71 11/12/23 07:00 Pulse Ox 95 11/12/23 08:15 FiO2 Intake & Output 11/11/23 11/12/23 11/12/23 18:59 06:59 18:59 Intake Total 354 118 Balance 354 118 Intake: Oral 354 118 Other: Voiding Method Toilet Toilet Toilet # Voids 3 1 - Exam -GENERAL: The patient is alert and oriented x3, not in any acute distress. Well developed, well nourished. Morbidly obese HEENT: Pupils are round and equally reacting to light. EOMI. No scleral icterus. No conjunctival pallor. Normocephalic, atraumatic. No pharyngeal erythema. No thyromegaly. CARDIOVASCULAR: S1 and S2 present. No murmurs, rubs, or gallops. -PULMONARY: Chest is clear to auscultation, n bilateral scattered wheezing , no crackles. ABDOMEN: Soft, nontender, nondistended, normoactive bowel sounds. No palpable organomegaly. MUSCULOSKELETAL: No joint swelling or deformity. EXTREMITIES: No cyanosis, clubbing, or pedal edema. NEUROLOGICAL: Gross neurological examination did not reveal any focal deficits. SKIN: No rashes. no petechiae. - Labs CBC & Chem 7: 11/11/23 06:25 11/10/23 03:42 Labs: Abnormal Lab Results - Last 24 Hours (Table) 11/10/23 Range/Units 03:42 Anion Gap 12.30 H (4.00-12.00) mmol/L Glucose 256 H (70-110) mg/dL Microbiology - Last 24 Hours (Table) 11/09/23 20:10 Gram Stain - Final Sputum Sputum Culture - Final 11/09/23 18:10 Blood Culture - Preliminary Blood Assessment and Plan Assessment: Right middle lobe community-acquired pneumonia Acute hypoxic respiratory failure Acute asthma exacerbation with possible some elements of COPD Morbid obesity with BMI of 64 Hyperglycemia, rule out diabetes mellitus Plan: Continue ceftriaxone Pulmonary team consult Oxygen therapy Bronchodilators and Symbicort Started on prednisone burst taper Will benefit from pulmonary follow-up as an outpatient Labs and medication were reviewed.. Continue same treatment. Continue with symptomatic treatment. Resume home medication. Monitor labs and vitals. DVT and GI prophylaxis. Further recommendations as per clinical course of the patient DVT prophylaxis: Subcutaneous heparin GI Prophylaxis: Pepcid PT/OT: Pending Prognosis is guarded
[2023-11-13 15:08] VITALS: RESP 18
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
[2023-11-13 21:04] VITALS: TEMP 97.9
[2023-11-14 07:48] VITALS: BP 150/86
--- NOTE | 2023-11-14 12:10 | P.PN ---
Subjective Please note date of service for this note on 11/13/2023 This is a pleasant 47 years old female who presents because of ongoing dyspnea for about 1 week associated with exertional dyspnea Patient also complaining from cough and creamy green phlegm She is has left-sided chest pain 08/24 associated with coughing She smokes 1 pack/day at home and she was counseled to quit and she agrees to the nicotine patch No alcohol or illicit drugs She denies GI/ symptoms. No headache or dizziness. No weakness or tingling She is hemodynamically stable, she is saturating 93% on 2 L oxygen via nasal cannula Labs reviewed she has mild leukocytosis at 10.9, rest of labs including BMP, liver enzymes troponin are unremarkable, glucose slightly elevated at 140 proBNP is low less than 20 D-dimer is negative at 0.55 EKG showing sinus rhythm at [address]-T changes Chest x-ray showing right middle lobe infiltrates, reviewed by myself and I agree Patient was started on Rocephin and admitted with pulmonary team consult 11/10 Patient still complaining from shortness of breath, with some improvement Still coughing with some improvement She has mild leukocytosis She is saturating 93% on 2 L oxygen via nasal cannula She is on ceftriaxone 11/11 Patient states her breathing is improving, is not back to baseline yet She still has scattered wheezing She was started on prednisone 40 mg today She is continued on ceftriaxone, her leukocytosis down to reference range at 9.5 today Patient will need outpatient follow-up with pulmonary service Possible discharge in 24 to 48 hours if she keeps improving 11/12 Patient is seen and examined by me at bedside Patient is improving, her breathing is better She is kept on prednisone pill and antibiotic Also she is on cough pills Possible discharge in 24 to 48 hours if she keeps improvement Objective - Vital Signs Vital signs: Vital Signs Temp 97.9 F 11/14/23 07:00 Pulse 80 11/14/23 11:58 Resp 18 11/14/23 07:00 BP 150/86 11/14/23 07:00 Pulse Ox 97 11/14/23 08:55 FiO2 Intake & Output 11/13/23 11/14/23 11/14/23 18:59 06:59 18:59 Intake Total 222 118 Balance 222 118 Intake: Oral 222 118 Other: # Voids 4 1 - Exam -GENERAL: The patient is alert and oriented x3, not in any acute distress. Well developed, well nourished. Morbidly obese HEENT: Pupils are round and equally reacting to light. EOMI. No scleral icterus. No conjunctival pallor. Normocephalic, atraumatic. No pharyngeal erythema. No thyromegaly. CARDIOVASCULAR: S1 and S2 present. No murmurs, rubs, or gallops. -PULMONARY: Chest is clear to auscultation, n bilateral scattered wheezing , no crackles. ABDOMEN: Soft, nontender, nondistended, normoactive bowel sounds. No palpable organomegaly. MUSCULOSKELETAL: No joint swelling or deformity. EXTREMITIES: No cyanosis, clubbing, or pedal edema. NEUROLOGICAL: Gross neurological examination did not reveal any focal deficits. SKIN: No rashes. no petechiae. - Labs CBC & Chem 7: 11/11/23 06:25 11/10/23 03:42 Assessment and Plan Assessment: Right middle lobe community-acquired pneumonia Acute hypoxic respiratory failure Acute asthma exacerbation with possible some elements of COPD Morbid obesity with BMI of 64 Hyperglycemia, rule out diabetes mellitus Plan: Continue ceftriaxone Pulmonary team consult Oxygen therapy Bronchodilators and Symbicort Started on prednisone burst taper Will benefit from pulmonary follow-up as an outpatient Labs and medication were reviewed.. Continue same treatment. Continue with symptomatic treatment. Resume home medication. Monitor labs and vitals. DVT and GI prophylaxis. Further recommendations as per clinical course of the patient DVT prophylaxis: Subcutaneous heparin GI Prophylaxis: Pepcid PT/OT: Pending Prognosis is guarded
[2023-11-14 12:12] VITALS: PULSE 90
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
--- NOTE | 2023-11-14 23:46 | P.DS ---
Providers Date of admission: 11/09/23 17:40 Attending physician: Gracie Velasquez Consults: 11/09/23 17:18 Consult Physician Routine Consulting Provider: Shell Delgado Consult Reason/Comments: COPD, pneumonia Do you want consulting provider notified?: Yes [facility] Hospital Course: Diagnoses: Right middle lobe community-acquired pneumonia Acute hypoxic respiratory failure Acute asthma exacerbation with possible some elements of COPD Morbid obesity with BMI of 64 Hyperglycemia, rule out diabetes mellitus Hospital course: This is a pleasant 47 years old female who presents because of ongoing dyspnea for about 1 week associated with exertional dyspnea Patient also complaining from cough and creamy green phlegm. Patient evaluated by pulmonary service and found to have pneumonia and asthma/COPD exacerbation and she was treated with ceftriaxone and steroids. Patient tolerated treatment well, she finished her oral course of treatment of antibiotic. Today patient she is fully awake oriented, improving and her breathing back to baseline. No coughing. No difficulty ambulating. No chest pain. No other new complaint. Patient is asking to be discharged home today. She is so eager to go home Patient was cleared for discharge by pulmonary service. As per pulmonary service no need for antibiotic upon discharge Patient will be discharged on tapering prednisone Problems and management plan were discussed with the patient and he verbalized understanding and acceptance Patient was found stable and can be discharged home in guarded prognosis however he needs follow-up as an outpatient. Patient was instructed to follow up with PCP Dr. Mae medina within one week and patient agrees Patient was instructed to follow-up with Dr. Michele in 2 weeks and she agrees Physical exam Gen: patient is a AAOx3, no distress CVS: S1-S2, RRR, no murmur Lungs: B/L CTA, no wheezing Abdomen: soft, no distention, no tenderness, positive bowel sounds Extremity: no leg edema or induration Time spent more than 35 minutes Patient Condition at Discharge: Fair Plan - Discharge Summary Discharge Rx Participant: No New Discharge Prescriptions: New predniSONE 10 mg PO DIRECTED #40 tab Benzonatate [Tessalon Perles] 100 mg PO TID PRN 3 Days #10 cap PRN Reason: Cough Continue Gabapentin 800 mg PO QID Furosemide [Lasix] 20 mg PO DAILY PRN PRN Reason: Edema Albuterol Inhaler [Ventolin Hfa Inhaler] 2 puff INHALATION RT-Q4H PRN PRN Reason: Shortness Of Breath Paliperidone [Paliperidone ER] 12 mg PO HS methocarbamoL [Robaxin-750] 750 mg PO BID PRN PRN Reason: Muscle Spasm traMADol HCL 50 mg PO QID buPROPion [Wellbutrin] 100 mg PO DAILY OLANZapine [ZyPREXA] 10 mg PO HS cloNIDine HCL [Catapres] 0.2 mg PO BID Lisinopril-Hctz 10-12.5 mg [Zestoretic 10-12.5] 1 tab PO DAILY Lidocaine 5% Oint [Xylocaine 5% Oint] 1 applic TOPICAL QID PRN PRN Reason: Pain hydrOXYzine pamoate [Vistaril] 25 mg PO BID Fluticasone/Umeclidin/Vilanter [Trelegy Ellipta 100-62.5-25] 1 puff INHALATION RT-DAILY Lidocaine 5% Patch [Lidoderm 5% Patch] 1 patch TOPICAL DAILY PRN PRN Reason: Pain Discontinued Ibuprofen [Motrin] 800 mg PO BID-W/MEALS Discharge Medication List Furosemide [Lasix] 20 mg PO DAILY PRN 05/04/21 [History] Gabapentin 800 mg PO QID 05/04/21 [History] Albuterol Inhaler [Ventolin Hfa Inhaler] 2 puff INHALATION RT-Q4H PRN 09/07/22 [History] OLANZapine [ZyPREXA] 10 mg PO HS 12/31/22 [History] Paliperidone [Paliperidone ER] 12 mg PO HS 12/31/22 [History] cloNIDine HCL [Catapres] 0.2 mg PO BID 12/31/22 [History] Fluticasone/Umeclidin/Vilanter [Trelegy Ellipta 100-62.5-25] 1 puff INHALATION RT-DAILY 11/09/23 [History] Lidocaine 5% Oint [Xylocaine 5% Oint] 1 applic TOPICAL QID PRN 11/09/23 [History] Lidocaine 5% Patch [Lidoderm 5% Patch] 1 patch TOPICAL DAILY PRN 11/09/23 [History] Lisinopril-Hctz 10-12.5 mg [Zestoretic 10-12.5] 1 tab PO DAILY 11/09/23 [History] buPROPion [Wellbutrin] 100 mg PO DAILY 11/09/23 [History] hydrOXYzine pamoate [Vistaril] 25 mg PO BID 11/09/23 [History] methocarbamoL [Robaxin-750] 750 mg PO BID PRN 11/09/23 [History] traMADol HCL 50 mg PO QID 11/09/23 [History] Benzonatate [Tessalon Perles] 100 mg PO TID PRN 3 Days #10 cap 11/14/23 [Rx] predniSONE 10 mg PO DIRECTED #40 tab 11/14/23 [Rx] Follow up Appointment(s)/Referral(s): Thomas Bhat MD [Primary Care Provider] - 1-2 days Shell Delgado MD [STAFF PHYSICIAN] - 2 Weeks Patient Instructions/Handouts: COPD (Chronic Obstructive Pulmonary Disease) (DC), Hypoxia (GEN) Activity/Diet/Wound Care/Special Instructions: Heart healthy diet activity is restricted till you see your doctor Discharge Disposition: HOME SELF-CARE
== END 2023-11-14 14:07 | disposition home or self-care (01) | DRG 190 ==
LOC: EC 14:49 → 6NMEDSUR 17:39 → OBSVTOIN 17:40 → 6NMEDSUR 19:18
PROVIDERS: ADMIT Hospitalist; ATTEND Hospitalist
DX: J44.1 Chronic obstructive pulmonary disease with (acute) exacerbation (principal); J18.9 Pneumonia, unspecified organism; J96.01 Acute respiratory failure with hypoxia; Z68.44 Body mass index [BMI] 60.0-69.9, adult; J45.901 Unspecified asthma with (acute) exacerbation; I11.9 Hypertensive heart disease without heart failure; E66.01 Morbid (severe) obesity due to excess calories; J44.0 Chronic obstructive pulmonary disease with (acute) lower respiratory infection; M06.9 Rheumatoid arthritis, unspecified; G47.33 Obstructive sleep apnea (adult) (pediatric); F17.210 Nicotine dependence, cigarettes, uncomplicated; R73.9 Hyperglycemia, unspecified; M79.7 Fibromyalgia; G89.29 Other chronic pain; G62.9 Polyneuropathy, unspecified; M54.50 Low back pain, unspecified; Z86.14 Personal history of Methicillin resistant Staphylococcus aureus infection; Z79.51 Long term (current) use of inhaled steroids; Z79.1 Long term (current) use of non-steroidal anti-inflammatories (NSAID); Z79.899 Other long term (current) drug therapy; Z90.711 Acquired absence of uterus with remaining cervical stump; Z91.040 Latex allergy status; Z87.81 Personal history of (healed) traumatic fracture
CPT/HCPCS: 36410; 36415; 71045; 71046; 76937; 80048; 80053; 83605; 83880; 84145; 84484; 85025; 85379; 85610; 85730; 87040; 87070; 87205; 87449; 87636; 93005; 94640; 94760; 96361; 96365; 96366; 96367; 96375; 99285